=== PATIENT | female | born 1930 | race Caucasian/White ===

== ENCOUNTER 2017-02-13 13:48 | Inpatient (IN) | payer MEDICARE, BC ==
[~2017-02-13] VITALS: Ht 165.1 cm; Wt 78.6 kg
[2017-02-13] VITALS (7 sets, daily range): BP systolic 151–166; BP diastolic 52–73
[~2017-02-13 13:48] MED LIST: ACHD5005 PO; ALIS1TAB3; ALPR.5T PO; ALPR0.5T3; ALPR0.5T72; AMIO200T10; AMIO200T10 PO; ASPI-587 PO; CEFD300C3 PO; CHOL10003; CHOL10003 PO; CITA-105 PO; CLIN300C3 PO; CYCL10TA9 PO; DCS100C PO; DILT360C30 PO; DXZS4T PO; EZET1TAB43; FLAX OIL; FLAX100011 PO; FURO40TA4; FURO40TA4 PO; HYDR-3720 PO; LACT1CAP62 PO; LISI20TA; LISI40TA PO; LVT.025T PO; MULT-608; NEBI20TA2 PO; NEPA1.7D OD; NF-ALI300T PO; NFNEB10T; OFLO5DRO2 OD; OLME40TA14; OXYC10TA63 PO; PITA4TAB2 PO; PRED5DRO2I OD; STRESS TABS; VITAMIN B; VITAMIN B PO; WRF1T; WRF1T PO; WRF3T
[2017-02-13] MEDS ORDERED: NS IV 1000 ML 2,000 ML IV PRN (14:15)
[2017-02-13 14:17] LABS: BASOPHILS % (AUTO) 0 % (0-10); EOSINOPHILS # (AUTO) 0.1 10^3/uL (0.0-0.3); EOSINOPHILS % (AUTO) 1 % (0-10); LYMPHOCYTES # (AUTO) 1.1 X 10^3 (1.0-4.0); LYMPHOCYTES % (AUTO) 21 % (12-44); MEAN CORPUSCULAR HEMOGLOBIN 29 PG (25-34); MEAN CORPUSCULAR HGB CONC 33 G/DL (32-36); MEAN CORPUSCULAR VOLUME 88 FL (80-99); MEAN PLATELET VOLUME 10.4 FL (7.4-10.4); MONOCYTES # (AUTO) 0.1 X 10^3 (0.0-1.0); MONOCYTES % (AUTO) 2 % (0-12); NEUTROPHILS # (AUTO) 3.8 X 10^3 (1.8-7.8); NEUTROPHILS % (AUTO) 75 % (42-75); PLATELET COUNT 258 10^3/uL (130-400); RED BLOOD COUNT 4.86 10^6/uL (4.35-5.85); RED CELL DISTRIBUTION WIDTH 14.1 % (10.0-14.5)
[2017-02-13 14:32] LABS: PROTHROMBIN TIME PATIENT 13.6 SEC (12.2-14.7)
[2017-02-13] MEDS ORDERED: fentaNYL INJECTION 100 MCG/2 ML AMP IVP STA ×2 (14:36→16:40)
--- NOTE | 2017-02-13 14:36 | ED Abdominal Pain ---
General Stated Complaint: ABD PAIN,DIZZINESS Source of Information: Patient Exam Limitations: No Limitations History of Present Illness Time Seen By Provider: 14:00 Initial Comments Here by EMS with abdominal pain and dizziness. States that she got up this morning and ate and then had severe abdominal pain. States she felt like she had to go to the bathroom but couldn't. Ultimately the pain became severe and EMS was called. On arrival here patient had diarrhea with severe pain and was hypotensive. Initially was more normotensive for EMS per report but then became hypotensive and certainly hypotensive on arrival. Denies fever but does have chills. Denies nausea or vomiting. Timing/Duration: 4-6 Hours Severity/Quality: Moderate, Severe Location: Generalized Abdomen Activities at Onset: None Modifying Factors: Improves With Defecating Associated Symptoms: No Back Pain, No Chest Pain, No Fever/Chills, No Nausea/ Vomiting Allergies and Home Medications Allergies Coded Allergies: Penicillins (Verified Allergy, Unknown, 06/19/08) Sulfa (Sulfonamide Antibiotics) (Verified Allergy, Unknown, 06/19/08) Home Medications Aliskiren Hemifumarate 300 Mg Tab, 300 MG PO DAILY, (Reported) Alprazolam 0.5 Mg Tablet, 0.5-1 TAB PO TID PRN, (Reported) TAKES 1/2 TO 1 (0.5MG) TABLET NEEDED FOR ANXIETY Amiodarone Hcl 200 Mg Tablet, 200 MG PO THU,THU,THU,THU,THU, (Reported) TAKES 1 TABLET THURSDAY THROUGH THURSDAY, DOES NOT TAKE ANY ON THURSDAY OR THURSDAY Aspirin 81 Mg Tablet.dr, 81 MG PO DAILY, (Reported) Cholecalciferol 1,000 Unit Tablet, 1,000 UNIT PO DAILY, (Reported) Citalopram Hydrobromide 40 Mg Tablet, 40 MG PO DAILY, (Reported) Diltiazem Hcl 360 Mg Capsule.sa, 360 MG PO DAILY, (Reported) Flaxseed 1,000 Mg Capsule, 1,000 MG PO DAILY, (Reported) Furosemide 40 Mg Tablet, 40 MG PO DAILY PRN, (Reported) NEEDED FOR SWELLING Hydrocodone Bit/Acetaminophen 1 Each Tablet, 10-325 MG PO Q6H PRN, (Reported) NEEDED FOR PAIN Levothyroxine Sodium 25 Mcg Tablet, 25 MCG PO DAILY, (Reported) Lisinopril 40 Mg Tablet, 40 MG PO DAILY, (Reported) Nebivolol Hcl 20 Mg Tablet, 20 MG PO DAILY, (Reported) Pitavastatin Calcium 4 Mg Tablet, 4 MG PO HS, (Reported) Review of Systems Constitutional: see HPI, No chills, No fever Respiratory: No Symptoms Reported Cardiovascular: Denies Chest Pain, Lightheadedness Gastrointestinal: Abdominal Pain, Diarrhea, Nausea, Denies Vomiting Genitourinary: Other (decreased output with last UA this morning and none since. Previous was yesterday) Musculoskeletal: no symptoms reported Skin: no symptoms reported Psychiatric/Neurological: See HPI, Weakness Endocrine: No Symptoms Reported All Other Systems Reviewed Negative Unless Noted: Yes Past Kkqbjgn-Gjxwui-Oplxju Hx Patient Social History Alcohol Use: Denies Use Recreational Drug Use: No Smoking Status: Never a Smoker 2nd Hand Smoke Exposure: No Recent Foreign Travel: No Contact w/Someone Who Travel: No Immunizations Up To Date Tetanus Booster (TDap): Unknown Date of Pneumonia Vaccine: May 15, 2013 Date of Influenza Vaccine: Feb 02, 2013 Seasonal Allergies Seasonal Allergies: No Surgeries History of Surgeries: Yes Respiratory History of Respiratory Disorde: No Cardiovascular History of Cardiac Disorders: Yes Cardiac Disorders: Hypertension, Irregular Heartbeat Neurological History of Neurological Disord: No Reproductive System Hx Reproductive Disorders: Yes (BARTHOLIN CYSTS X 2 WITH SURGERY FOR BOTH) Genitourinary History of Genitourinary Disor: Yes Genitourinary Disorders: Bladder Infection, Renal Failure Gastrointestinal History of Gastrointestinal Di: No Musculoskeletal History of Musculoskeletal Dis: No Endocrine History of Endocrine Disorders: Yes Endocrine Disorders: Hypothyroidsim HEENT History of HEENT Disorders: Yes HEENT Disorders: Cataract Hearing Impairment: Denies Psychosocial History of Psychiatric Problem: Yes Behavioral Health Disorders: Sleep Difficulties, Anxiety Blood Transfusions Adverse Reaction to a Blood Tr: No Reviewed Nursing Assessment Reviewed/Agree w Nursing PMH: Yes Family Medical History Significant Family History: Heart Disease, Hypertension Physical Exam Vital Signs VS - Last 72 Hours, by Label 02/13/17 02/13/17 13:50 13:50 Temp 97.8 Pulse 93 Resp 18 B/P (MAP) Pulse Ox 97 O2 Delivery Nasal Cannula O2 Flow Rate 2.00 Capillary Refill : General Appearance: WD/WN, moderate distress HEENT: TMs normal, pharynx normal Neck: full range of motion, supple Respiratory: lungs clear, normal breath sounds Cardiovascular: regular rate, rhythm, no murmur Gastrointestinal: soft, abnormal bowel sounds (hyperactive), tenderness ( diffuse) Extremities: non-tender, normal inspection Back: normal inspection, no CVA tenderness, no vertebral tenderness Neurologic/Psychiatric: alert, oriented x 3 Skin: normal color, warm/dry Focused Exam Evaluation Lactate Level Laboratory Tests 02/13/17 13:55: Lactic Acid Level 3.25*H 02/13/17 16:55: Lactic Acid Level Laboratory Tests Test 02/13/17 13:55 02/13/17 16:55 Lactic Acid Level 3.25 MMOL/L (0.50-2.00) *H Progress/Results/Core Measures Results/Orders Lab Results Laboratory Tests Test 02/13/17 13:55 02/13/17 16:20 02/13/17 16:55 Range/Units White Blood Count 5.0 4.3-11.0 10^3/uL Red Blood Count 4.86 4.35-5.85 10^6/uL Hemoglobin 14.0 11.5-16.0 G/DL Hematocrit 43 35-52 % Mean Corpuscular Volume 88 80-99 FL Mean Corpuscular Hemoglobin 29 25-34 PG Mean Corpuscular Hemoglobin Concent 33 32-36 G/DL Red Cell Distribution Width 14.1 10.0-14.5 % Platelet Count 258 130-400 10^3/uL Mean Platelet Volume 10.4 7.4-10.4 FL Neutrophils (%) (Auto) 75 42-75 % Lymphocytes (%) (Auto) 21 12-44 % Monocytes (%) (Auto) 2 0-12 % Eosinophils (%) (Auto) 1 0-10 % Basophils (%) (Auto) 0 0-10 % Neutrophils # (Auto) 3.8 1.8-7.8 X 10^3 Lymphocytes # (Auto) 1.1 1.0-4.0 X 10^3 Monocytes # (Auto) 0.1 0.0-1.0 X 10^3 Eosinophils # (Auto) 0.1 0.0-0.3 10^3/uL Basophils # (Auto) 0.0 0.0-0.1 10^3/uL Prothrombin Time 13.6 12.2-14.7 SEC INR Comment 1.0 0.8-1.4 Activated Partial Thromboplast Time 23 L 24-35 SEC Sodium Level 138 135-145 MMOL/L Potassium Level 5.0 3.6-5.0 MMOL/L Chloride Level 106 98-107 MMOL/L Carbon Dioxide Level 18 L 21-32 MMOL/L Anion Gap 14 5-14 MMOL/L Blood Urea Nitrogen 41 H 7-18 MG/DL Creatinine 2.14 H 0.60-1.30 MG/DL Estimat Glomerular Filtration Rate 22 BUN/Creatinine Ratio 19 Glucose Level 204 H 70-105 MG/DL Lactic Acid Level 3.25 *H 0.50-2.00 MMOL/L Calcium Level 9.7 8.5-10.1 MG/DL Total Bilirubin 0.9 0.1-1.0 MG/DL Aspartate Amino Transf (AST/SGOT) 26 5-34 U/L Alanine Aminotransferase (ALT/SGPT) 16 0-55 U/L Alkaline Phosphatase 59 40-136 U/L Total Protein 6.8 6.4-8.2 GM/DL Albumin 3.9 3.2-4.5 GM/DL Urine Color JOSE ARMANDO H Urine Clarity VERY CLOUDY H Urine pH 5 5-9 Urine Specific [place] 1.015 L 1.016-1.022 Urine Protein 4+ NEGATIVE Urine Glucose (UA) NEGATIVE NEGATIVE Urine Ketones 1+ H NEGATIVE Urine Nitrite NEGATIVE NEGATIVE Urine Bilirubin 1+ H NEGATIVE Urine Urobilinogen 4 H NORMAL MG/DL Urine Leukocyte Esterase 1+ H NEGATIVE Urine RBC (Auto) 1+ H NEGATIVE Urine RBC NONE /HPF Urine WBC 5-10 H /HPF Urine Squamous Epithelial Cells 10-25 H /HPF Urine Crystals NONE /LPF Urine Amorphous Sediment MOD JASIEL URATES H /LPF Urine Bacteria FEW H /HPF Urine Casts NONE /LPF Urine Mucus NEGATIVE /LPF Urine Culture Indicated YES My Orders Orders - SARATH LOPEZ MD Cbc With Automated Diff (02/13/17 14:03) Comprehensive Metabolic Panel (02/13/17 14:03) Lactic Acid Analyzer (02/13/17 14:03) Blood Culture (02/13/17 14:03) Sputum Culture (02/13/17 14:03) Ua Culture If Indicated (02/13/17 14:03) Protime With Inr (02/13/17 14:03) Partial Thromboplastin Time (02/13/17 14:03) Chest 1 View, Ap/Pa Only (02/13/17 14:03) O2 (02/13/17 14:03) Saline Lock/Iv-Start (02/13/17 14:03) Saline Lock/Iv-Start (02/13/17 14:03) Ns Iv 1000 Ml (Sodium Chloride 0.9%) (02/13/17 14:15) Vital Signs Adult Sepsis Patie Q1HR (02/13/17 14:03) Remove Rings In Anticipation O (02/13/17 14:03) Catheter(Urinary) Insert & Ass 03,15 (02/13/17 14:36) Fentanyl Injection (Sublimaze Injection (02/13/17 14:36) Forearm, Right, 2 Views (02/13/17 14:36) Hand, Right, 3 Views (02/13/17 14:36) Ct Abdomen/Pelvis Wo (02/13/17 15:15) Ekg Tracing (02/13/17 15:54) Ns Iv 1000 Ml (Sodium Chloride 0.9%) (02/13/17 16:30) Urine Culture (02/13/17 16:20) Fentanyl Injection (Sublimaze Injection (02/13/17 16:40) Ceftriaxone Injection (Rocephin Injectio (02/13/17 17:00) Medications Given in ED Current Medications Medications Dose Ordered Sig/Dung Route Start Time Stop Time Status Last Admin Dose Admin Sodium Chloride 2,000 ml @ 1,000 mls/hr PRN PRN IV 02/13/17 14:15 02/13/17 13:55 1,000 MLS/HR Vital Signs/I&O Vital Sign - Last 12Hours 02/13/17 02/13/17 13:50 13:50 Temp 97.8 Pulse 93 Resp 18 B/P (MAP) Pulse Ox 97 O2 Delivery Nasal Cannula O2 Flow Rate 2.00 Intake and Output 02/14/17 00:00 Intake Total 2000 ml Balance 2000 ml Progress Note : Progress Note IV by EMS with 500 mL normal saline bolus initiated. Patient noted to be hypotensive. Second IV ordered. Normal saline 30 mL/kg IV bolus initiated totaling 2 L required at weight of 160 pounds. 2 L was ordered and she will have the in addition to the 500 mL normal saline bolus initiated by EMS. Blood cultures, lactic acid, labs, chest x-ray, x-ray of right forearm and hand ordered. Monitor patient. Patient's blood pressure did improve with fluids but patient had 0 urine output with initiation of Elizabeth catheter. She does have some persistent abdominal pain. Lactic acid noted to be greater than than 3. CT abdomen and pelvis without contrast due to elevated creatinine ordered and patient to CT at 1520. Still no urine output. Monitor patient. 1630: CT abdomen and pelvis complete. Patient is improved with blood pressures in the 150s systolic. Still having pain. Fentanyl 50 g IV. I did discuss the case with Dr. Kay and she accepts patient for admission. UA pending. 1644, did discuss the case with Dr. Olivera in consult per Dr. Romero's request. 1652: Discussed case with Dr. German, consult per Dr. Romero's request. Both physicians will see patient in the ICU. All findings and concerns were discussed with the patient and family including her son Dr. Jaron Canada ([phone]). We will treat for UTI. Overall doing better. She has had several diarrhea stools. Patient does have urine output now. Admit to ICU. Inpatient status. 1715: Patient doing much better. I attest a focused exam at this time. Right ulnar fracture was splinted earlier with Velcro splint immobilizing the distal ulna. Placed in sling. Will need further orthopedic referral. ECG Initial ECG Impression Date: Feb 13, 2017 Initial ECG Impression Time: 16:40 Initial ECG Rate: 60 Comment Junctional rhythm with normal axis. No evidence of ST elevation SC. Artifact noted throughout baseline. No previous available for comparison. Interpreted by me. Diagnostic Imaging Diagonstic Imaging: Xray Plain Films/CT/US/NM/MRI: chest Comments NAME: [facility] REC#: [id number] PT STATUS: REG ER : 1930 PHYSICIAN: SARATH LOPEZ MD ADMIT DATE: 02/13/17/ER Signed Date of Exam: 02/13/17 CHEST 1 VIEW, AP/PA ONLY INDICATION: Fall with elevated lactic acid level. COMPARISON: 05/16/13. FINDINGS: Visible lungs are clear. Please note, the posterior lower lobes are poorly evaluated by portable radiography. Stable cardiomegaly with left pectoral transvenous dual-chamber pacemaker. No pleural effusion or pneumothorax. No displaced fracture of the visible ribs. IMPRESSION: 1. No acute cardiopulmonary process by portable radiography. Dictated by: Dictated on workstation # [id number] Dict: 02/13/17 1519 Trans: 02/13/171619 Interpreted by: OPAL MORGAN MD Electronically signed by: OPAL MORGAN MD 02/13/171619 Diagonstic Imaging: Xray Plain Films/CT/US/NM/MRI: forearm Comments NAME: [facility] REC#: [id number] PT STATUS: REG ER : 1930 PHYSICIAN: SARATH LOPEZ MD ADMIT DATE: 02/13/17/ER Signed Date of Exam: 02/13/17 FOREARM, RIGHT, 2 VIEWS INDICATION: Wrist pain after a fall. TECHNIQUE: 2 views of the right forearm. COMPARISON: Right hand radiographs performed concurrently. FINDINGS: There is an acute oblique fracture of the distal ulnar metadiaphysis. The distal fracture fragment is displaced medially by approximately 4 mm resulting in 4 mm of fracture gap diastases. No abnormal angulation of the distal fracture fragment. No definitive acute fracture of the distal radius. Proximal radius and ulna, normal alignment. IMPRESSION: 1. Acute mildly displaced fracture of the distal ulnar metadiaphysis. No involvement of the distal radial ulnar joint. Dictated by: Dictated on workstation # [id number] Dict: 02/13/17 1514 Trans: 02/13/171621 Interpreted by: OPAL MORGAN MD Electronically signed by: OPAL MORGAN MD 02/13/171621 Diagonstic Imaging: Xray Plain Films/CT/US/NM/MRI: hand Comments NAME: [facility] REC#: [id number] PT STATUS: REG ER : 1930 PHYSICIAN: SARATH LOPEZ MD ADMIT DATE: 02/13/17/ER Signed Date of Exam: 02/13/17 HAND, RIGHT, 3 VIEWS INDICATION: Fall with right hand pain. EXAMINATION: AP, oblique and lateral views of the right hand were obtained. FINDINGS: There is osteopenia. There is diffuse degenerative change throughout the interphalangeal joints. There is advanced degenerative change of first carpal metacarpal joint and radiocarpal joint. There is an acute oblique fracture of the distal ulnar shaft just proximal to the wrist joint. IMPRESSION: Acute oblique fracture of the distal ulnar shaft just proximal to the wrist joint. Underlying diffuse chronic changes, as above. Dictated by: Dictated on workstation # [id number] Dict: 02/13/17 1522 Trans: 02/13/171615 Interpreted by: EMBER STAFFORD MD Electronically signed by: EMBER STAFFORD MD 02/13/17 161 Diagonstic Imaging: CT Plain Films/CT/US/NM/MRI: abdomen, pelvis Comments NAME: [facility] REC#: [id number] PT STATUS: REG ER : 1930 PHYSICIAN: SARATH LOPEZ MD ADMIT DATE: 02/13/17/ER Signed Date of Exam: 02/13/17 CT ABDOMEN/PELVIS WO INDICATION: Fall with abdominal pain. EXAM: CT of the abdomen and pelvis obtained without IV contrast. COMPARISON: 01/16/2016. FINDINGS: The visualized portions of the lung bases are clear. There were no pleural fluid collections. There is no free intraperitoneal air. The liver shows no focal lesion without contrast. Gallbladder is surgically absent. The spleen, pancreas, and adrenals appear unremarkable. There is cortical scarring in the right kidney superiorly as well as in the left kidney inferiorly, without hydronephrosis or overt mass lesion. There is no retroperitoneal mass or adenopathy. There is no ascites or abnormal fluid collection. There is a large amount of stool throughout the colon, especially in the rectum. Elizabeth catheter is seen in the bladder. Bladder is decompressed IMPRESSION: No evidence of solid organ injury or overt mass lesion without contrast. Moderate-sized hiatal hernia is present. Parenchymal scarring in both kidneys is seen. There is a large amount stool throughout the colon, especially in the rectum. There is no overt acute bony abnormality. Dictated by: Dictated on workstation # [id number] Dict: 02/13/17 1543 Trans: 02/13/17 1616 Interpreted by: EMBER STAFFORD MD Electronically signed by: EMBER STAFFORD MD 02/13/176 Departure Communication (Admissions) Time/Spoke to Admitting Phy: 16:30 Time/Spoke to Consulting Phy: 16:44 Impression Impression: Primary Impression: Diffuse abdominal pain Additional Impressions: Diarrhea Qualified Codes: R19.7 - Diarrhea, unspecified UTI (urinary tract infection) Qualified Codes: N30.00 - Acute cystitis without hematuria Acute on chronic renal failure Qualified Codes: N17.9 - Acute kidney failure, unspecified; N18.9 - Chronic kidney disease, unspecified Dehydration Right distal ulnar fracture Qualified Codes: S52.601A - Unspecified fracture of lower end of right ulna, initial encounter for closed fracture Disposition: ADMITTED INPATIENT Condition: Stable Admissions Decision to Admit Reason: Admit from ER (General) Decision to Admit/Date: Feb 13, 2017 Time/Decision to Admit Time: 16:30 Departure-Patient Inst. Referrals: RAH ANGELES MD (PCP/Family) Primary Care Physician SARATH LOPEZ MD Feb 13, 2017 14:36
[2017-02-13 14:43] LABS: ALBUMIN 3.9 GM/DL (3.2-4.5); BILIRUBIN,TOTAL 0.9 MG/DL (0.1-1.0); CALCIUM 9.7 MG/DL (8.5-10.1); CREATININE SERUM 2.14 MG/DL (0.60-1.30); TOTAL PROTEIN 6.8 GM/DL (6.4-8.2)
--- NOTE | 2017-02-13 15:22 | Diagnostic Imaging Report ---
INDICATION: Fall with elevated lactic acid level. COMPARISON: 05/16/13. FINDINGS: Visible lungs are clear. Please note, the posterior lower lobes are poorly evaluated by portable radiography. Stable cardiomegaly with left pectoral transvenous dual-chamber pacemaker. No pleural effusion or pneumothorax. No displaced fracture of the visible ribs. IMPRESSION: 1. No acute cardiopulmonary process by portable radiography. Dictated by: Dictated on workstation # [id number]
--- NOTE | 2017-02-13 15:38 | Diagnostic Imaging Report ---
INDICATION: Wrist pain after a fall. TECHNIQUE: 2 views of the right forearm. COMPARISON: Right hand radiographs performed concurrently. FINDINGS: There is an acute oblique fracture of the distal ulnar metadiaphysis. The distal fracture fragment is displaced medially by approximately 4 mm resulting in 4 mm of fracture gap diastases. No abnormal angulation of the distal fracture fragment. No definitive acute fracture of the distal radius. Proximal radius and ulna, normal alignment. IMPRESSION: 1. Acute mildly displaced fracture of the distal ulnar metadiaphysis. No involvement of the distal radial ulnar joint. Dictated by: Dictated on workstation # [id number]
--- NOTE | 2017-02-13 15:42 | Diagnostic Imaging Report ---
INDICATION: Fall with right hand pain. EXAMINATION: AP, oblique and lateral views of the right hand were obtained. FINDINGS: There is osteopenia. There is diffuse degenerative change throughout the interphalangeal joints. There is advanced degenerative change of first carpal metacarpal joint and radiocarpal joint. There is an acute oblique fracture of the distal ulnar shaft just proximal to the wrist joint. IMPRESSION: Acute oblique fracture of the distal ulnar shaft just proximal to the wrist joint. Underlying diffuse chronic changes, as above. Dictated by: Dictated on workstation # [id number]
--- NOTE | 2017-02-13 15:54 | Diagnostic Imaging Report ---
INDICATION: Fall with abdominal pain. EXAM: CT of the abdomen and pelvis obtained without IV contrast. COMPARISON: 01/16/2016. FINDINGS: The visualized portions of the lung bases are clear. There were no pleural fluid collections. There is no free intraperitoneal air. The liver shows no focal lesion without contrast. Gallbladder is surgically absent. The spleen, pancreas, and adrenals appear unremarkable. There is cortical scarring in the right kidney superiorly as well as in the left kidney inferiorly, without hydronephrosis or overt mass lesion. There is no retroperitoneal mass or adenopathy. There is no ascites or abnormal fluid collection. There is a large amount of stool throughout the colon, especially in the rectum. Elizabeth catheter is seen in the bladder. Bladder is decompressed IMPRESSION: No evidence of solid organ injury or overt mass lesion without contrast. Moderate-sized hiatal hernia is present. Parenchymal scarring in both kidneys is seen. There is a large amount stool throughout the colon, especially in the rectum. There is no overt acute bony abnormality. Dictated by: Dictated on workstation # [id number]
[2017-02-13 16:28] LABS: KETONES,URINE 1+ (NEGATIVE); LEUKOCYTE ESTERASE ,URINE 1+ (NEGATIVE); NITRITE,URINE NEGATIVE (NEGATIVE); PH,URINE 5 (5-9); PROTEIN,URINE 4+ (NEGATIVE); UROBILINOGEN,URINE 4 MG/DL (NORMAL)
[2017-02-13] MEDS ORDERED: NS IV 1000 ML 1,000 ML IV SCH (16:30)
[2017-02-13 16:39] LABS: BILIRUBIN,URINE 1+ (NEGATIVE)
[2017-02-13] MEDS ORDERED: cefTRIAXone INJECTION 1,000 MG in NS (IVPB) 50 ML IV ONE (17:00)
[2017-02-13] MEDS ORDERED: cefTRIAXone 1 GM/NS 50 ML IVPB IV SCH ×2 (18:00)
[2017-02-13] MEDS ORDERED: ONDANSETRON 4 MG/2 ML (SDV) Z0FRAN IV PRN (18:15)
[2017-02-13] MEDS ORDERED: CATHETER FLUSH 10 ML SYR IV PRN (18:15)
[2017-02-13] MEDS ORDERED: fentaNYL INJECTION 100 MCG/2 ML AMP IV PRN (18:15)
[2017-02-13] MEDS: NS IV 1000 ML 1,000 ML IV SCH (18:56)
[2017-02-13] MEDS ORDERED: INFLUENZA TRIvalent 2017-2018 0.5 ML/45 MCG SYR IM ONE (19:45)
[2017-02-13] MEDS ORDERED: PANTOPRAZOLE 40 MG/10 ML (PROTONIX) VIAL IV ONE (21:15)
--- OUTSIDE RECORDS SUMMARY | 2017-02-13 21:17 | XMS REPORT | Continuity of Care Document ---
Author Author [facility] Organization [facility] Address Unknown Phone Unavailable Allergies Active Description Code Type Severity Reaction Onset Reported/Identified Relationship to Patient Clinical Status Yes Penicillins [id number] Drug Allergy Unknown N/A 06/19/2008 Yes Sulfa (Sulfonamide Antibiotics) [id number] Drug Allergy Unknown N/A 06/19/2008 Medications Problems Date Dx Coded Attending Type Code Diagnosis Diagnosed By 06/10/2011 Ot 847.0 SPRAIN OF NECK 06/10/2011 Ot 910.0 ABRASION HEAD 06/10/2011 Ot 916.0 ABRASION HIP LEG 06/10/2011 Ot 959.09 INJURY OF FACE AND NECK 06/10/2011 Ot E000.8 OTHER EXTERNAL CAUSE STATUS 06/10/[address]/HIGHWAY 06/10/2011 Ot E885.9 FALL FROM SLIPPING, TRIPPING, OR STUMBLI 06/10/2011 Ot V06.1 [id number], COMBINED [ 06/10/2011 Ot V58.61 ANTICOAGULANTS,LT,CURRENT USE 06/14/2011 Ot 724.2 LUMBAGO 06/14/2011 Ot 959.19 OTH INJURY OF OTHER SITES OF TRUNK 06/14/2011 Ot E000.8 OTHER EXTERNAL CAUSE STATUS 06/14/2011 Ot E849.6 ACCIDENT IN PUBLIC BLDG 06/14/2011 Ot E888.9 FALL NOS 07/17/2011 Ot 920 CONTUSION FACE/SCALP/NCK 07/17/2011 Ot 923.20 CONTUSION OF HAND(S) 07/17/2011 Ot 959.01 HEAD INJURY, NOS 07/17/2011 Ot E000.8 OTHER EXTERNAL CAUSE STATUS 07/17/2011 Ot E029.9 OTHER ACTIVITY 07/17/2011 Ot E849.0 ACCIDENT IN HOME 07/17/2011 Ot E888.1 FALL STRIKING OBJECT NEC 02/21/2013 RAH ANGELES MD Ot 244.9 HYPOTHYROIDISM NOS 02/21/2013 RAH ANGELES MD Ot 272.4 HYPERLIPIDEMIA NEC/NOS 02/21/2013 RHA ANGELES MD Ot 285.9 ANEMIA NOS 02/21/2013 RAH ANGELES MD Ot 403.90 HYPTNSV CHR KID DIS, UNSPEC, W CHR KD ST 02/21/2013 RAH ANGELES MD Ot 427.31 ATRIAL FIBRILLATION 02/21/2013 RAH ANGELES MD Ot 428.0 CONGESTIVE HEART FAILURE NOS 02/21/2013 RAH ANGELES MD Ot 428.33 ACUTE CHRONIC DIASTOLIC HRT FAILURE 02/21/2013 RAH ANGELES MD Ot 433.10 CAROTID ARTERY OCCLUSION W O CEREBRAL IN 02/21/2013 RAH ANGELES MD Ot 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 02/21/2013 RAH ANGELES MD Ot 585.3 CHRONIC KIDNEY DISEASE, STAGE III (MODER 02/21/2013 RAH ANGELES MD Ot 682.0 CELLULITIS OF FACE 02/21/2013 RAH ANGELES MD Ot 715.90 OSTEOARTHROS NOS-UNSPEC 02/21/2013 RAH ANGELES MD Ot 780.2 SYNCOPE AND COLLAPSE 02/21/2013 RAH ANGELES MD Ot 790.92 COAGULATION PROFILE, ABNORMAL 02/21/2013 RAH ANGELES MD Ot 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 PACEMAKER IN SITU 02/21/2013 RAH ANGELES MD Ot V58.61 ANTICOAGULANTS,LT,CURRENT USE 03/05/2013 SHAZIA BECKER [employer] SE[employer] PLANT OPERATOR Ot 599.0 URIN TRACT INFECTION NOS 03/05/2013 SHAZIA BECKER [employer] OPERATOR Ot 789.09 ABDOMINAL PAIN, OTHER SPECIFIED SITE 05/17/2013 RAH ANGELES MD Ot 244.9 HYPOTHYROIDISM NOS 05/17/2013 RAH ANGELES MD Ot 272.4 HYPERLIPIDEMIA NEC/NOS 05/17/2013 RAH ANGELES MD Ot 300.00 ANXIETY STATE NOS 05/17/2013 RAH ANGELES MD Ot 403.90 HYPTNSV CHR KID DIS, UNSPEC, W CHR KD ST 05/17/2013 RAH ANGELES MD Ot 414.01 CORONARY ATHEROSCLEROSIS OF [place] CORON 05/17/2013 RAH ANGELES MD Ot 427.31 ATRIAL FIBRILLATION 05/17/2013 RAH ANGELES MD Ot 428.0 CONGESTIVE HEART FAILURE NOS 05/17/2013 RAH ANGELES MD Ot 428.30 UNSPEC DIASTOLIC HRT FAILURE 05/17/2013 RAH ANGELES MD Ot 486 PNEUMONIA, ORGANISM NOS 05/17/2013 RAH ANGELES MD Ot 496 CHR AIRWAY OBSTRUCT NEC 05/17/2013 RAH ANGELES MD Ot 584.9 ACUTE RENAL FAILURE, UNSPECIFIED 05/17/2013 RAH ANGELES MD Ot 585.9 CHRONIC KIDNEY DISEASE, UNSPECIFIED 05/17/2013 RAH ANGELES MD Ot 780.79 OTH MALAISE FATIGUE 05/17/2013 RAH ANGELES MD Ot V03.82 PROPHYLACTIC VACC AGAINST STREPTOCOCCUS 05/17/2013 RAH ANGELES MD Ot 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 PACEMAKER IN SITU 11/30/2013 MARCE ALBARRAN DO Ot 300.00 ANXIETY STATE NOS 11/30/2013 MARCE ALBARRAN DO Ot 338.29 OTHER CHRONIC PAIN 11/30/2013 MARCE ALBARRAN DO Ot 724.5 BACKACHE NOS 11/30/2013 MARCE ALBARRAN DO Ot 733.00 OSTEOPOROSIS NOS 11/30/2013 MARCE ALBARRAN DO Ot 813.44 FX LOW RADIUS W ULNA-CL 11/30/2013 MARCE ALBARRAN DO Ot 920 CONTUSION FACE/SCALP/NCK 11/30/2013 MARCE ALBARRAN DO Ot E888.1 FALL STRIKING OBJECT NEC 03/21/2014 JESIKA HIGGINS MD Ot V54.12 AFTERCARE HEALING TRAUMATIC FX LOWER ARM 03/21/2014 JESIKA HIGGINS MD Ot V57.21 ENCOUNTER FOR OCCUPATIONAL THERAPY 04/26/2015 J LUIS ANAYA [employer] OPERATOR Ot M79.605 04/26/2015 J LUIS ANAYA [employer] OPERATOR Ot R22.42 05/03/2015 J LUIS ANAYA [employer] OPERATOR Ot M79.605 05/03/2015 J LUIS ANAYA [employer] OPERATOR Ot R22.42 01/16/2016 Ot 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 01/16/2016 Ot 733.90 BONE CARTILAGE DIS NOS 01/16/2016 Ot V76.12 OTH SCREEN MAMMO-MALIGN NEOPLASM OF [place] 01/16/2016 Ot V82.81 SCREENING FOR OSTEOPOROSIS 01/16/2016 Ot 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 01/16/2016 Ot 275.49 OTH DISORD/CALCIUM METABOLISM 01/16/2016 Ot 511.9 PLEURAL EFFUSION NOS 01/16/2016 Ot 733.90 BONE CARTILAGE DIS NOS 01/16/2016 Ot 805.2 FX DORSAL VERTEBRA-CLOSE 01/16/2016 Ot E000.8 OTHER EXTERNAL CAUSE STATUS 01/16/2016 Ot E849.6 ACCIDENT IN PUBLIC BLDG 01/16/2016 Ot E888.9 FALL NOS 01/16/2016 Ot 511.9 PLEURAL EFFUSION NOS 01/16/2016 Ot 805.2 FX DORSAL VERTEBRA-CLOSE 01/16/2016 Ot E000.8 OTHER EXTERNAL CAUSE STATUS 01/16/2016 Ot E849.6 ACCIDENT IN PUBLIC BLDG 01/16/2016 Ot E888.9 FALL NOS 01/16/2016 Ot 721.3 LUMBOSACRAL SPONDYLOSIS 01/16/2016 Ot 805.2 FX DORSAL VERTEBRA-CLOSE 01/16/2016 Ot E000.8 OTHER EXTERNAL CAUSE STATUS 01/16/2016 Ot E849.6 ACCIDENT IN PUBLIC BLDG 01/16/2016 Ot E888.9 FALL NOS 01/16/2016 Ot V76.12 OTH SCREEN MAMMO-MALIGN NEOPLASM OF [place] 01/16/2016 Ot 401.9 HYPERTENSION NOS 01/16/2016 KARTHIK ESPARZA, RAH A Ot 599.71 GROSS HEMATURIA 01/16/2016 MUNIRA HINOJOSA MD Ot 596.89 OTHER SPECIFIED DISORDERS OF BLADDER 01/16/2016 MUNIRA HINOJOSA MD Ot 599.71 GROSS HEMATURIA 01/16/2016 J LUIS ANAYA [employer] OPERATOR Ot M79.605 PAIN IN LEFT LEG 01/16/2016 J LUIS ANAYA [employer] OPERATOR Ot R22.42 LOCALIZED SWELLING, MASS AND LUMP, LEFT 01/18/2016 MUNIRA HINOJOSA MD Ot 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 Visit Date/Time Discharge Status Pt. Type Provider Facility Loc./Unit Complaint [id number] 01/16/2016 12:47:00 2015 23:59:59 CLS Outpatient MUNIRA HINOJOSA MD [facility] RAD BLAD CA-C67.9 [id number] 04/02/2015 16:35:00 2014 23:59:59 CLS Outpatient J LUIS ANAYA [employer] OPERATOR [facility] RAD LEFT LOWER EXTREMITY SWELLING, POPLITEAL PAIN [id number] 03/02/2014 12:50:00 2013 13:29:00 DIS Outpatient JESIKA HIGGINS MD [facility] REHAB S/P L DISTAL RADIUS FX [id number] 11/30/2013 07:32:00 2013 09:26:00 DIS Emergency MARCE ALBARRAN DO [facility] ER FALL/LEFT WRIST INJURY [id number] 09/16/2013 07:56:00 2013 23:59:59 CLS Outpatient MUNIRA HINOJOSA MD [facility] RAD GROSS HEMATURIA [id number] 08/31/2013 11:33:00 2013 23:59:59 CLS Outpatient RAH ANGELES MD [facility] LAB GROSS HEMATURIA [id number] 05/14/2013 11:30:00 2013 11:42:00 DIS Inpatient RAH ANGELES MD [facility] 4TH PNEUMONIA BILAT,ACUTE RENAL FAILURE, VOLUME OVERLOA [id number] 03/05/2013 13:46:00 2012 16:21:00 DIS Emergency SHAZIA BECKER [employer] OPERATOR [facility] ER POSS KIDNEY INFECTION [id number] 02/16/2013 10:45:00 2012 16:00:00 DIS Inpatient RAH ANGELES MD [facility] 4TH SYNCOPE,NECK SWELLING [id number] 01/16/2016 12:46:00 Document Registration [id number] 01/16/2016 12:46:00 Document Registration [id number] 01/16/2016 12:46:00 Document Registration [id number] 07/05/2012 10:05:00 Document Registration [id number] 03/03/2012 08:54:00 Document Registration [id number] 10/16/2011 09:55:00 Document Registration [id number] 08/08/2011 11:34:00 Document Registration [id number] 07/17/2011 12:43:00 Document Registration [id number] 06/17/2011 08:34:00 Document Registration [id number] 06/14/2011 09:01:00 Document Registration [id number] 06/10/2011 12:34:00 Document Registration [id number] 02/20/2011 08:16:00 Document Registration [id number] 08/15/2010 08:00:00 Document Registration
[2017-02-13] MEDS: ONDANSETRON 4 MG/2 ML (SDV) Z0FRAN IVP PRN (21:24)
[2017-02-13] MEDS: fentaNYL INJECTION 100 MCG/2 ML AMP IVP PRN (21:25)
--- OUTSIDE RECORDS SUMMARY | 2017-02-13 21:30 | XMS REPORT | Continuity of Care Document ---
Author Author [facility] Organization [facility] Address Unknown Phone Unavailable Allergies Active Description Code Type Severity Reaction Onset Reported/Identified Relationship to Patient Clinical Status Yes Penicillins [id number] Drug Allergy Unknown N/A 06/19/2008 Yes Sulfa (Sulfonamide Antibiotics) [id number] Drug Allergy Unknown N/A 06/19/2008 Medications Problems [...] SLIPPING, TRIPPING, OR STUMBLI 06/10/2011 Ot V06.1 [id number], COMBINED [ 06/10/2011 Ot V58.61 ANTICOAGULANTS,LT,CURRENT USE [...] ANGELES MD Ot 272.4 HYPERLIPIDEMIA NEC/NOS 02/21/2013 RAH ANGELES MD Ot 285.9 ANEMIA NOS 02/21/2013 [...] Ot V58.61 ANTICOAGULANTS,LT,CURRENT USE 03/05/2013 SHAZIA 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 SALES ACCOUNT EXECUTIVE Ot 599.0 URIN TRACT INFECTION NOS 03/05/2013 SHAZIA BECKER SALES ACCOUNT EXECUTIVE Ot 789.09 ABDOMINAL PAIN, OTHER SPECIFIED SITE 05/17/2013 RAH ANGELES MD Ot 244.9 HYPOTHYROIDISM NOS 05/17/2013 RAH ANGELES MD Ot 272.4 HYPERLIPIDEMIA NEC/NOS 05/17/2013 RAH ANGELES MD Ot 300.00 ANXIETY STATE NOS 05/17/2013 RAH ANGELES MD Ot 403.90 HYPTNSV CHR KID DIS, UNSPEC, W CHR KD ST 05/17/2013 RAH ANGELES MD Ot 414.01 CORONARY ATHEROSCLEROSIS OF [place] CORON 05/17/2013 RAH ANGELES MD Ot 427.31 [...] FOR OCCUPATIONAL THERAPY 04/26/2015 J LUIS ANAYA SALES ACCOUNT EXECUTIVE Ot M79.605 04/26/2015 J LUIS ANAYA SALES ACCOUNT EXECUTIVE Ot R22.42 05/03/2015 J LUIS ANAYA SALES ACCOUNT EXECUTIVE Ot M79.605 05/03/2015 J LUIS ANAYA SALES ACCOUNT EXECUTIVE Ot R22.42 01/16/2016 Ot 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 01/16/2016 [...] 599.71 GROSS HEMATURIA 01/16/2016 J LUIS ANAYA SALES ACCOUNT EXECUTIVE Ot M79.605 PAIN IN LEFT LEG 01/16/2016 J LUIS ANAYA SALES ACCOUNT EXECUTIVE Ot R22.42 LOCALIZED SWELLING, MASS AND LUMP, LEFT 01/18/2016 MUNIRA HINOJOSA MD Ot 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 Visit Date/Time Discharge Status Pt. Type Provider Facility Loc./Unit Complaint [id number] 01/16/2016 12:47:00 2015 23:59:59 CLS Outpatient MUNIRA HINOJOSA MD [facility] RAD BLAD CA-C67.9 [id number] 04/02/2015 16:35:00 2014 23:59:59 CLS Outpatient J LUIS ANAYA SALES ACCOUNT EXECUTIVE [facility] RAD LEFT LOWER EXTREMITY SWELLING, POPLITEAL PAIN [id number] 03/02/2014 12:50:00 2013 13:29:00 DIS Outpatient JESIKA HIGGINS MD [facility] REHAB S/P L DISTAL RADIUS FX [id number] 11/30/2013 07:32:00 2013 09:26:00 DIS Emergency MARCE ALBARRAN DO [facility] ER FALL/LEFT WRIST INJURY [id number] 09/16/2013 07:56:00 2013 23:59:59 CLS Outpatient MUNIRA HINOJOSA MD [facility] RAD GROSS HEMATURIA [id number] 08/31/2013 11:33:00 2013 23:59:59 CLS Outpatient RAH ANGELES MD [facility] LAB GROSS HEMATURIA [id number] 05/14/2013 11:30:00 2013 11:42:00 DIS Inpatient RAH ANGELES MD [facility] 4TH PNEUMONIA BILAT,ACUTE RENAL FAILURE, VOLUME OVERLOA [id number] 03/05/2013 13:46:00 2012 16:21:00 DIS Emergency SHAZIA BECKER SALES ACCOUNT EXECUTIVE [facility] ER POSS KIDNEY INFECTION [id number] 02/16/2013 10:45:00 2012 16:00:00 DIS Inpatient RAH ANGELES MD [facility] 4TH SYNCOPE,NECK SWELLING [id number] 01/16/2016 12:46:00 Document Registration [id number] 01/16/2016 12:46:00 Document Registration [id number] 01/16/2016 12:46:00 Document Registration [id number] 07/05/2012 10:05:00 Document Registration [id number] 03/03/2012 08:54:00 Document Registration [id number] 10/16/2011 09:55:00 Document Registration [id number] 08/08/2011 11:34:00 Document Registration [id number] 07/17/2011 12:43:00 Document Registration [id number] 06/17/2011 08:34:00 Document Registration [id number] 06/14/2011 09:01:00 Document Registration [id number] 06/10/2011 12:34:00 Document Registration [id number] 02/20/2011 08:16:00 Document Registration [id number] 08/15/2010 08:00:00 Document Registration
[2017-02-14] VITALS (15 sets, daily range): BP systolic 144–215; BP diastolic 62–88
[2017-02-14] MEDS: fentaNYL INJECTION 100 MCG/2 ML AMP IVP PRN ×2 (01:03→05:34)
[2017-02-14] MEDS: ONDANSETRON 4 MG/2 ML (SDV) Z0FRAN IVP PRN (02:37)
[2017-02-14] MEDS: NS IV 1000 ML 1,000 ML IV SCH ×3 (02:39→23:52)
[2017-02-14 04:27] LABS: BASOPHILS % (AUTO) 0 % (0-10); EOSINOPHILS % (AUTO) 0 % (0-10); LYMPHOCYTES # (AUTO) 0.7 X 10^3 (1.0-4.0); LYMPHOCYTES % (AUTO) 3 % (12-44); MEAN CORPUSCULAR HEMOGLOBIN 29 PG (25-34); MEAN CORPUSCULAR HGB CONC 33 G/DL (32-36); MEAN CORPUSCULAR VOLUME 90 FL (80-99); MEAN PLATELET VOLUME 10.3 FL (7.4-10.4); MONOCYTES # (AUTO) 0.8 X 10^3 (0.0-1.0); MONOCYTES % (AUTO) 4 % (0-12); NEUTROPHILS # (AUTO) 21.4 X 10^3 (1.8-7.8); NEUTROPHILS % (AUTO) 93 % (42-75); PLATELET COUNT 209 10^3/uL (130-400); RED BLOOD COUNT 3.83 10^6/uL (4.35-5.85)
[2017-02-14 04:46] LABS: ALBUMIN 3.2 GM/DL (3.2-4.5); BILIRUBIN,TOTAL 0.6 MG/DL (0.1-1.0); CALCIUM 7.8 MG/DL (8.5-10.1); CREATININE SERUM 1.45 MG/DL (0.60-1.30); MAGNESIUM 1.6 MG/DL (1.8-2.4); PHOSPHORUS 3.7 MG/DL (2.3-4.7); POTASSIUM 4.5 MMOL/L (3.6-5.0); TOTAL PROTEIN 5.4 GM/DL (6.4-8.2)
[2017-02-14 05:01] LABS: BAND NEUTROPHILS 2 %; BASOPHILS % (MANUAL) 0 %; EOSINOPHILS % (MANUAL) 0 %; LYMPHOCYTES % (MANUAL) 1 %; NEUTROPHILS % (MANUAL) 96 %
[2017-02-14] MEDS ORDERED: POTASSIUM CL 10MEQ/50ML IVPB 50 ML IV SCH (06:00)
[2017-02-14] MEDS ORDERED: MAGNESIUM 1 GM/100 ML IVPB 100 ML IV SCH (06:00)
[2017-02-14] MEDS ORDERED: KCL 20 MEQ TAB (K-DUR) PO SCH (06:00)
--- NOTE | 2017-02-14 08:21 | History & Physical-Hospitalist ---
HPI History of Present Illness: HPI/Chief Complaint CC: Severe sepsis of unknown source except presumed viral gastroenteritis with severe volume depletion with acute renal failure HPI: This is an 86-year-old white female clinic patient of Dr. Blas and who presents to the emergency room after a fall at home sustaining a right ulnar distal fracture but reported near syncopal episode all day yesterday that resulted in the fall. She reports that she began having abdominal pain and cramping and severe diarrhea with blood-tinged bowel contents in the toilet and in the ER was found to have severe sepsis with systolic blood pressure of 70 requiring aggressive IV fluid resuscitation with good resolution of the hypotension but urine looked slightly abnormal so Rocephin was given empirically lactic acid of 3 was noted to likely be from hypovolemic lactic acidosis with hypotension and acute renal failure. At this current time she is feeling much better and I have consulted Dr. Olivera to assess for possible colitis and review of CT scan of the abdomen and pelvis. Source: patient, family, RN/MD Exam Limitations: no limitations Date Seen 02/14/17 Time Seen by Provider: 07:45 Attending Physician Jena Blas MD PCP Jena Blas MD Referring Physician Date of Admission Feb 13, 2017 at 17:00 Home Medications & Allergies Home Medications Reviewed patient Home Medication Reconciliation Form Allergies Allergies Coded Allergies Penicillins (Verified Allergy, Unknown, 06/19/08) Sulfa (Sulfonamide Antibiotics) (Verified Allergy, Unknown, 06/19/08) Past Zthmfon-Fggyfn-Ljsils Hx Patient Social History Marrital Status: Employed/Student: retired Alcohol Use: Denies Use Recreational Drug Use: No Smoking Status: Never a Smoker 2nd Hand Smoke Exposure: No Physical Abuse Screen: No Sexual Abuse: No Recent Foreign Travel: No Contact w/other who traveled: No Recent Hopitalizations: No Recent Infectious Disease Expo: No Immunizations Up To Date Tetanus Booster (TDap): Unknown Date of Pneumonia Vaccine: May 15, 2013 Date of Influenza Vaccine: Feb 02, 2013 Seasonal Allergies Seasonal Allergies: No Surgeries Yes Abdominal Respiratory No Cardiovascular Yes (pacemaker) Hypertension, Irregular Heartbeat Neurological No Reproductive System Hx Reproductive Disorders: Yes (BARTHOLIN CYSTS X 2 WITH SURGERY FOR BOTH) Genitourinary Yes Bladder Infection, Renal Failure Gastrointestinal No Musculoskeletal No Endocrine History of Endocrine Disorders: Yes Endocrine Disorders: Hypothyroidsim HEENT History of HEENT Disorders: Yes HEENT Disorders: Cataract Hearing Impairment: Denies Cancer Yes Bladder Did You Recieve Any Treatments: Yes Type of Treatment: Surgical Intervention Psychosocial History of Psychiatric Problem: Yes Behavioral Health Disorders: Sleep Difficulties, Anxiety Integumentary History of Skin or Integumenta: Yes (PEREZ FROM TAKING COUMADIN) Blood Transfusions History of Blood Disorders: No Adverse Reaction to a Blood Tr: No Reviewed Nursing Assessment Reviewed/Agree w Nursing PMH: Yes Family Medical History Significant Family History: Heart Disease, Hypertension Family Hx: Patient reports no known family medical history. Review of Systems Constitutional: see HPI, dizziness, malaise, weakness EENTM: no symptoms reported Respiratory: no symptoms reported Cardiovascular: no symptoms reported Gastrointestinal: abdominal pain (LLQ), diarrhea, loss of appetite, melena, nausea Genitourinary: decreased output Musculoskeletal: back pain Skin: no symptoms reported Psychiatric/Neurological: No Symptoms Reported All Other Systems Reviewed Negative Unless Noted: Yes Physical Exam Physical Exam Vital Signs Vital Sign - Last 12Hours 02/13/17 02/13/17 13:50 17:45 Temp 97.8 Pulse 93 Resp 18 B/P (MAP) 154/52 Pulse Ox 97 O2 Delivery Nasal Cannula O2 Flow Rate 2.00 Capillary Refill : Less Than 3 Seconds General Appearance: No Apparent Distress, WD/WN, Chronically ill, Obese Eyes: Bilateral Eye Normal Inspection, Bilateral Eye PERRL HEENT: PERRL/EOMI, Normal ENT Inspection, Pharynx Normal Neck: Full Range of Motion, Normal Inspection, Non Tender, Supple, Carotid Bruit Respiratory: Chest Non Tender, Lungs Clear, Normal Breath Sounds, No Accessory Muscle Use, No Respiratory Distress Cardiovascular: Regular Rate, Rhythm, No Edema, No Gallop, No JVD, No Murmur, Normal Peripheral Pulses Gastrointestinal: Normal Bowel Sounds, No Organomegaly, No Pulsatile Mass, Soft , Tenderness (generalized all quadrants) Back: Normal Inspection, No CVA Tenderness, No Vertebral Tenderness Extremity: Normal Capillary Refill, Normal Inspection, Normal Range of Motion, Non Tender, No Calf Tenderness, No Pedal Edema Neurologic/Psychiatric: Alert, Oriented x3, No Motor/Sensory Deficits, Normal Mood/Affect Skin: Normal Color, Warm/Dry Lymphatic: No Adenopathy Results Results/Procedures Lab Laboratory Tests 02/13/17 13:55 02/14/17 04:10 Assessment/Plan Admission Diagnosis Assessment: Severe sepsis likely due to hypovolemic hypotension with acute renal failure from acute and severe gastroenteritis Abnormal UA urine culture pending placed on Rocephin empirically Leukocytosis after normal white count and ER History of irregular heartbeat managed by cardiology Dr. German History of hypertension Assessment and Plan Plan: Maintain gentle IV fluids Consult cardiology Consultation Gen. surgery Maintain Rocephin empirically until urine culture returns Check labs in a.m. Monitor closely Reconcile home meds when confirmed SCD's Diagnosis/Problems Diagnosis/Problems (1) Severe sepsis with acute organ dysfunction Status: Acute Assessment & Plan: s/p aggressive IVF now lactic acidosis is resolved (2) Renal failure, acute Status: Acute Assessment & Plan: Maintain IVF, check in am Qualifiers: Qualified Codes: N17.9 - Acute kidney failure, unspecified (3) Leukocytosis, unspecified Status: Acute Assessment & Plan: Due to sepsis response (4) Abnormal urinalysis Status: Acute Assessment & Plan: Await UCx tomorrow and maintain abx coverage empirically until completed (5) Diarrhea of presumed infectious origin Status: Acute Assessment & Plan: Consult dr Olivera, CT scan to be reviewed (6) Irregular heart beat Status: Chronic Assessment & Plan: Consult Dr German her Table Tender (7) Right distal ulnar fracture Status: Chronic Assessment & Plan: Consult her Table Tender Dr German Qualifiers: Qualified Codes: S52.601A - Unspecified fracture of lower end of right ulna , initial encounter for closed fracture (8) Dehydration Status: Acute Assessment & Plan: Maintain IVF Clinical Quality Measures DVT/VTE Risk/Contraindication: Risk Factor Score Per Nursin RFS Level Per Nursing on Admit: 3=High JARON PATEL DO Feb 14, 2017 08:20
--- NOTE | 2017-02-14 08:31 | Diagnostic Imaging Report ---
Portable chest compared to prior study from February 13, 2017. INDICATION: Shortness of breath and hypotension. FINDINGS: Patient is status post previous placement of a pacemaker. Heart size appears stable. There is mild central pulmonary vascular congestion with a slight interval increase in prominence of the central pulmonary vascularity. There is new linear atelectasis at the right lung base. There are some developing regions of atelectasis or infiltrate medially within the right middle lobe. There is no large effusion. There is no pneumothorax. IMPRESSION: Slight interval increase in prominence of the pulmonary interstitial markings suggests some developing pulmonary vascular congestion. There also are developing regions of atelectasis or infiltrate demonstrated at the right base. Dictated by: Dictated on workstation # [id number]
[2017-02-14] MEDS: HYDROmorphone (DILAUDID) 2 MG/ML VIAL IVP PRN ×3 (08:39→20:42)
[2017-02-14 09:18] LABS: BILIRUBIN,URINE NEGATIVE (NEGATIVE); KETONES,URINE NEGATIVE (NEGATIVE); LEUKOCYTE ESTERASE ,URINE 1+ (NEGATIVE); NITRITE,URINE NEGATIVE (NEGATIVE); PH,URINE 5 (5-9); PROTEIN,URINE 3+ (NEGATIVE); UROBILINOGEN,URINE NORMAL (NORMAL)
--- NOTE | 2017-02-14 11:16 | Consultation ---
History of Present Illness History of Present Illness Patient Consulted On(fabiola/time) 02/14/17 11:06 Date Seen by Provider: Feb 14, 2017 Time Seen by Provider: 09:38 History of Present Illness Surgery asked to consult regarding abdominal pain. HPI per ED: Here by EMS with abdominal pain and dizziness. States that she got up this morning and ate and then had severe abdominal pain. States she felt like she had to go to the bathroom but couldn't. Ultimately the pain became severe and EMS was called. On arrival here patient had diarrhea with severe pain and was hypotensive. Initially was more normotensive for EMS per report but then became hypotensive and certainly hypotensive on arrival. Denies fever but does have chills. Denies nausea or vomiting. Timing/Duration: 4-6 Hours Severity/Quality: Moderate, Severe Location: Generalized Abdomen Activities at Onset: None Modifying Factors: Improves With Defecating Associated Symptoms: No Back Pain, No Chest Pain, No Fever/Chills, No Nausea/ Vomiting When seen today pt states she has minimal abdominal pain, her son thinks her abdomen is slightly distended. Denies nausea and vomiting. A&O x 3. Her BM today per nurse was grossly bloody; this has not happened to pt before. I asked the pt about major surgery and she states she does not think she wants any surgery. One of her son's is a vascular surgeon in [place]; and she would discuss with him before doing anything, but right now doesn't want any surgery. Pt's only other complaint today is right wrist pain; Xray showed ulnar fracture. Allergies and Home Medications Allergies Coded Allergies: Penicillins (Verified Allergy, Unknown, 06/19/08) Sulfa (Sulfonamide Antibiotics) (Verified Allergy, Unknown, 06/19/08) Home Medications Aliskiren Hemifumarate 300 Mg Tab, 300 MG PO DAILY, (Reported) Alprazolam 0.5 Mg Tablet, 0.5-1 TAB PO TID PRN, (Reported) TAKES 1/2 TO 1 (0.5MG) TABLET NEEDED FOR ANXIETY Amiodarone Hcl 200 Mg Tablet, 200 MG PO THU,THU,THU,THU,THU, (Reported) TAKES 1 TABLET THURSDAY THROUGH THURSDAY, DOES NOT TAKE ANY ON THURSDAY OR THURSDAY Aspirin 81 Mg Tablet.dr, 81 MG PO DAILY, (Reported) Cholecalciferol 1,000 Unit Tablet, 1,000 UNIT PO DAILY, (Reported) Citalopram Hydrobromide 40 Mg Tablet, 40 MG PO DAILY, (Reported) Diltiazem Hcl 360 Mg Capsule.sa, 360 MG PO DAILY, (Reported) Flaxseed 1,000 Mg Capsule, 1,000 MG PO DAILY, (Reported) Furosemide 40 Mg Tablet, 40 MG PO DAILY PRN, (Reported) NEEDED FOR SWELLING Hydrocodone Bit/Acetaminophen 1 Each Tablet, 10-325 MG PO Q6H PRN, (Reported) NEEDED FOR PAIN Levothyroxine Sodium 25 Mcg Tablet, 25 MCG PO DAILY, (Reported) Lisinopril 40 Mg Tablet, 40 MG PO DAILY, (Reported) Nebivolol Hcl 20 Mg Tablet, 20 MG PO DAILY, (Reported) Pitavastatin Calcium 4 Mg Tablet, 4 MG PO HS, (Reported) Past Szalmtu-Xkdebg-Vrudhy Hx Patient Social History Alcohol Use: Denies Use Recreational Drug Use: No Smoking Status: Never a Smoker 2nd Hand Smoke Exposure: No Recent Foreign Travel: No Contact w/Someone Who Travel: No Recent Infectious Disease Expo: No Recent Hopitalizations: No Physical Abuse Screen: No Sexual Abuse: No Immunizations Up To Date Tetanus Booster (TDap): Unknown Date of Pneumonia Vaccine: May 15, 2013 Date of Influenza Vaccine: Feb 02, 2013 Seasonal Allergies Seasonal Allergies: No Surgeries History of Surgeries: Yes Respiratory History of Respiratory Disorde: No Cardiovascular History of Cardiac Disorders: Yes Cardiac Disorders: Hypertension, Irregular Heartbeat Neurological History of Neurological Disord: No Reproductive System Hx Reproductive Disorders: Yes (BARTHOLIN CYSTS X 2 WITH SURGERY FOR BOTH) Genitourinary History of Genitourinary Disor: Yes Genitourinary Disorders: Bladder Infection, Renal Failure Gastrointestinal History of Gastrointestinal Di: No Musculoskeletal History of Musculoskeletal Dis: No Endocrine History of Endocrine Disorders: No Endocrine Disorders: Hypothyroidsim HEENT History of HEENT Disorders: Yes HEENT Disorders: Cataract Hearing Impairment: Denies Cancer History of Cancer: Yes Cancer: Bladder Psychosocial History of Psychiatric Problem: Yes Behavioral Health Disorders: Sleep Difficulties, Anxiety Integumentary History of Skin or Integumenta: Yes (PEREZ FROM TAKING COUMADIN) Blood Transfusions History of Blood Disorders: No Adverse Reaction to a Blood Tr: No Reviewed Nursing Assessment Reviewed/Agree w Nursing PMH: Yes Family Medical History Significant Family History: Heart Disease, Hypertension Family Medial History: Patient reports no known family medical history. Review of Systems-General Constitutional: No chills, No diaphoresis, malaise, weakness EENTM: hearing loss, No mouth pain, No epistaxis, No throat swelling Respiratory: No cough, No dyspnea on exertion, No hemoptysis Cardiovascular: No chest pain, No edema, No palpitations Gastrointestinal: abdominal pain, diarrhea, No nausea, No vomiting Genitourinary: dysuria, frequency, No hematuria : No Musculoskeletal: joint pain, joint swelling, muscle stiffness Skin: dryness, No pruritus, No rash Psychiatric/Neurological: Denies Anxiety, Denies Depressed, Denies Emotional Problems, Denies Headache, Denies Seizure Other pt denies abnormal bruising or bleeding, states she does have some bruising "because she is older" Physical Exam-General Problems Physical Exam Vital Signs Vital Sign - Last 12Hours 02/13/17 02/13/17 13:50 17:45 Temp 97.8 Pulse 93 Resp 18 B/P (MAP) 154/52 Pulse Ox 97 O2 Delivery Nasal Cannula O2 Flow Rate 2.00 Capillary Refill : Less Than 3 Seconds General Appearance: WD/WN, mild distress Eyes: Bilateral Eye PERRL, Bilateral Eye EOMI HEENT: pharynx normal, No scleral icterus (R), No scleral icterus (L), No pale conjunctivae (R), No pale conjunctivae (L) Neck: supple, normal inspection, No thyromegaly Respiratory: chest non-tender, lungs clear, normal breath sounds, no respiratory distress, no accessory muscle use Cardiovascular: regular rate, rhythm, no edema, no gallop, systolic murmur (I- II/ NEGIN) Gastrointestinal: non tender (even with deep palpation), soft, no organomegaly , distended (mild) Rectal: deferred Back: no CVA tenderness, no vertebral tenderness Extremities: no pedal edema, no calf tenderness, other (right hand is very swollen with hematoma, in wrist brace) Neurologic/Psychiatric: machine rough rounder II-XII nml as tested, no motor/sensory deficits, alert, normal mood/affect, oriented x 3 Skin: normal color, warm/dry, other (bruising on her legs) Lymphatic: no adenopathy (neck, axilla, or groin) Data Review Labs Laboratory Tests 02/13/17 13:55: White Blood Count 5.0, Red Blood Count 4.86, Hemoglobin 14.0, Hematocrit 43, Mean Corpuscular Volume 88, Mean Corpuscular Hemoglobin 29, Mean Corpuscular Hemoglobin Concent 33, Red Cell Distribution Width 14.1, Platelet Count 258, Mean Platelet Volume 10.4, Neutrophils (%) (Auto) 75, Lymphocytes (%) (Auto) 21 , Monocytes (%) (Auto) 2, Eosinophils (%) (Auto) 1, Basophils (%) (Auto) 0, Neutrophils # (Auto) 3.8, Lymphocytes # (Auto) 1.1, Monocytes # (Auto) 0.1, Eosinophils # (Auto) 0.1, Basophils # (Auto) 0.0, Prothrombin Time 13.6, INR Comment 1.0, Activated Partial Thromboplast Time 23L, Sodium Level 138, Potassium Level 5.0, Chloride Level 106, Carbon Dioxide Level 18L, Anion Gap 14 , Blood Urea Nitrogen 41H, Creatinine 2.14H, Estimat Glomerular Filtration Rate 22, BUN/Creatinine Ratio 19, Glucose Level 204H, Lactic Acid Level 3.25*H, Calcium Level 9.7, Total Bilirubin 0.9, Aspartate Amino Transf (AST/SGOT) 26, Alanine Aminotransferase (ALT/SGPT) 16, Alkaline Phosphatase 59, Total Protein 6.8, Albumin 3.9 02/13/17 16:20: Urine Color AMBERH, Urine Clarity VERY CLOUDYH, Urine pH 5, Urine Specific [place] 1.015L, Urine Protein 4+, Urine Glucose (UA) NEGATIVE, Urine Ketones 1+H , Urine Nitrite NEGATIVE, Urine Bilirubin 1+H, Urine Urobilinogen 4H, Urine Leukocyte Esterase 1+H, Urine RBC (Auto) 1+H, Urine RBC NONE, Urine WBC 5-10H, Urine Squamous Epithelial Cells 10-25H, Urine Crystals NONE, Urine Amorphous Sediment MOD JASIEL URATESH, Urine Bacteria FEWH, Urine Casts NONE, Urine Mucus NEGATIVE, Urine Culture Indicated YES 02/13/17 16:55: Lactic Acid Level 0.87 02/13/17 20:25: Lactic Acid Level 1.51 02/14/17 03:50: Stool Occult Blood Immunoassay POSITIVEH 02/14/17 04:10: White Blood Count 23.0H, Red Blood Count 3.83L, Hemoglobin 11.2L, Hematocrit 34L , Mean Corpuscular Volume 90, Mean Corpuscular Hemoglobin 29, Mean Corpuscular Hemoglobin Concent 33, Red Cell Distribution Width 14.0, Platelet Count 209, Mean Platelet Volume 10.3, Neutrophils (%) (Auto) 93H, Lymphocytes (%) (Auto) 3L , Monocytes (%) (Auto) 4, Eosinophils (%) (Auto) 0, Basophils (%) (Auto) 0, Neutrophils # (Auto) 21.4H, Lymphocytes # (Auto) 0.7L, Monocytes # (Auto) 0.8, Eosinophils # (Auto) 0.0, Basophils # (Auto) 0.0, Neutrophils % (Manual) 96, Lymphocytes % (Manual) 1, Monocytes % (Manual) 1, Eosinophils % (Manual) 0, Basophils % (Manual) 0, Band Neutrophils 2, Toxic Granulation 1+, Elliptocytes SLIGHT, Sodium Level 140, Potassium Level 4.5, Chloride Level 113H, Carbon Dioxide Level 16L, Anion Gap 11, Blood Urea Nitrogen 34H, Creatinine 1.45H, Estimat Glomerular Filtration Rate 34, BUN/Creatinine Ratio 23, Glucose Level 149H, Calcium Level 7.8L, Phosphorus Level 3.7, Magnesium Level 1.6L, Total Bilirubin 0.6, Aspartate Amino Transf (AST/SGOT) 20, Alanine Aminotransferase ( ALT/SGPT) 15, Alkaline Phosphatase 49, Total Protein 5.4L, Albumin 3.2 02/14/17 09:05: Urine Color YELLOW, Urine Clarity CLEAR, Urine pH 5, Urine Specific [place] 1.020, Urine Protein 3+H, Urine Glucose (UA) NEGATIVE, Urine Ketones NEGATIVE, Urine Nitrite NEGATIVE, Urine Bilirubin NEGATIVE, Urine Urobilinogen NORMAL, Urine Leukocyte Esterase 1+H, Urine RBC (Auto) 4+H, Urine RBC NONE, Urine WBC NONE, Urine Crystals NONE, Urine Bacteria TRACE, Urine Casts NONE, Urine Mucus NEGATIVE, Urine Culture Indicated NO Microbiology 02/14/17 C. difficile GDH Antigen & Toxins - Final, Complete Assessment/Plan Assessment/Plan Assessment/Plan 1. Abdominal Pain 2. Leukocytosis 3. Elevated lactic acid - normal today 4. GI bleed - unknown source 5. Hypotension - resolved today GI Bleed unknown source; possibilities include intestinal ischemia and infection. C. diff sent today. CT (per radiology) did not show any intestinal obstruction or other pathology, did have large fecal retention. Also hiatal hernia. I am unsure why the WBC count went up today; however with a relatively benign abdominal exam and the fact that pt doesn't want surgery, I would do nothing at this time. Will follow along with labs and physical exam and only plan for surgery if something comes up AND pt changes her mind and wants surgery. Thank you for this consult. Clinical Quality Measures DVT/VTE Risk/Contraindication: Risk Factor Score Per Nursin RFS Level Per Nursing on Admit: 3=High RAHEEL OTERO DO Feb 14, 2017 11:16
--- NOTE | 2017-02-14 13:03 | Consultation-Cardiology ---
HPI-Cardiology Cardiology Consultation: Date of Consultation 02/14/17 Date of Admission Attending Physician Jena Blas MD Admitting Physician Jena Blas MD Consulting Physician Phyllis GERMAN MD HPI: Time Seen by Provider: 13:00 Chief Complaint: Syncope This is a 86-year-old lady who is a patient of mine. I saw her yesterday in the morning for routine follow-up for history of atrial fibrillation, pacemaker , hypertension. She was doing well with no complaints. Apparently afterwards she went to a grocery store and had lunch. While she was going home she started to develop significant abdominal pain. When she reached home she was also near syncopal. And had diarrhea. Did not complain of any cardiac symptoms , specifically she denied chest pain, shortness of breath, palpitation. Review of Systems-Cardiology Review of Systems Constitutional: As described under HPI, lightheadedness, tiredness Eyes: No As described under HPI, No no symptoms reported, No blindness, No blurred vision, No contact lenses, No drainage, No decreased acuity, No foreign body sensation, No glasses, No inflammation, No pain, No photophobia, No previous injury, No shadows, No tunnel vision, No other, No vision change Ears/Nose/Throat: No As described under HPI, No no symptoms reported, No chronic hearing loss, No epistaxis, No ear discharge, No ear pain, No loose teeth, No mouth pain, No mouth swelling, No nasal drainage, No nose pain, No recent hearing loss, No throat pain, No throat swelling, No ulcerations, No other Respiratory: No no symptoms reported, No As described under HPI, No cough, No orthopnea, No shortness of breath, No SOB with excertion, No SOB at rest, No stridor, No wheezing, No other Cardiovascular: syncope Gastrointestinal: abdominal pain, diarrhea Genitourinary: No no symptoms reported, No As described under HPI, No burning, No dysuria, No discharge, No frequency, No flank pain, No hematuria, No incontinence, No pain, No urgency, No other, No urine frequency changes, No urine coloration changes : No Musculoskeletal: No no symptoms reported, No As describe under HPI, No back pain, No gout, No joint pain, No joint swelling, No muscle pain, No muscle stiffness, No neck pain, No other Skin: No no symptoms reported, No As described under HPI, No change in color, No change in hair/nails, No dryness, No lesions, No lumps, No rash, No other, No skin related problems, No ulcerations, No rash on exposed areas, No ulcerations on exposed areas Psychiatric/Neurological: No no symptoms reported, No As described under HPI, No anxiety, No depression, No emotional problems, No headache, No numbness, No pre-existing deficit, No seizure, No tingling, No tremors, No weakness, No other , No focal weakness, No syncope Hematologic: No no symptoms reported, No As described under HPI, No anemia, No blood clots, No easy bleeding, No easy bruising, No swollen glands, No other, No bleeding abnormalities All Other Systems Reviewed Negative Unless Noted: Yes RLB-Uyhlfk-Yxmnyx Hx Patient Social History Marrital Status: Employed/Student: retired Alcohol Use: Denies Use Recreational Drug Use: No Smoking Status: Never a Smoker 2nd Hand Smoke Exposure: No Recent Foreign Travel: No Recent Infectious Disease Expo: No Hospitalization with Isolation: Denies Physical Abuse Screen: No Sexual Abuse: No Immunizations Up To Date Tetanus Booster (TDap): Unknown Date of Pneumonia Vaccine: May 15, 2013 Date of Influenza Vaccine: Feb 02, 2013 Past Medical History PMH As described under Assessment. Family Medical History Family History: Patient reports no known family medical history. Allergies and Home Medications Allergies Coded Allergies: Penicillins (Verified Allergy, Unknown, 06/19/08) Sulfa (Sulfonamide Antibiotics) (Verified Allergy, Unknown, 06/19/08) Home Medications Alprazolam 0.5 Mg Tablet, 0.5-1 TAB PO TID PRN, (Reported) TAKES 1/2 TO 1 (0.5MG) TABLET NEEDED FOR ANXIETY Aspirin 81 Mg Tablet.dr, 81 MG PO DAILY, (Reported) Cholecalciferol 1,000 Unit Tablet, 1,000 UNIT PO DAILY, (Reported) Citalopram Hydrobromide 40 Mg Tablet, 40 MG PO DAILY, (Reported) Diltiazem Hcl 360 Mg Capsule.sa, 360 MG PO DAILY, (Reported) Flaxseed 1,000 Mg Capsule, 1,000 MG PO DAILY, (Reported) Furosemide 40 Mg Tablet, 40 MG PO DAILY PRN, (Reported) NEEDED FOR SWELLING Hydrocodone Bit/Acetaminophen 1 Each Tablet, 10-325 MG PO Q6H PRN, (Reported) NEEDED FOR PAIN Levothyroxine Sodium 25 Mcg Tablet, 25 MCG PO DAILY, (Reported) Lisinopril 40 Mg Tablet, 40 MG PO DAILY, (Reported) Physical Exam-Cardiology Physical Exam Vital Signs/I&O Vital Sign - Last 12Hours 02/14/17 02/14/17 02/14/17 02/14/17 02:00 03:00 04:00 04:00 Pulse 75 78 80 Resp 17 16 B/P (MAP) 178/81 180/80 160/72 Pulse Ox 95 95 96 94 O2 Delivery Nasal Cannula Nasal Cannula Nasal Cannula Nasal Cannula O2 Flow Rate 2.00 2.00 3.00 2.00 02/14/17 02/14/17 02/14/17 02/14/17 04:00 05:00 06:00 07:00 Temp 99.5 Pulse 82 78 81 Resp 21 13 29 B/P (MAP) 168/82 191/82 Pulse Ox 95 94 95 O2 Delivery Nasal Cannula Nasal Cannula Nasal Cannula O2 Flow Rate 2.00 2.00 2.00 02/14/17 02/14/17 02/14/17 02/14/17 07:00 07:49 08:00 08:00 Temp 100.5 Pulse 82 84 Resp 14 B/P (MAP) 186/88 Pulse Ox 96 96 O2 Delivery Nasal Cannula Nasal Cannula Nasal Cannula O2 Flow Rate 3.00 2.00 3.00 02/14/17 02/14/17 02/14/17 02/14/17 09:00 10:00 11:00 12:00 Pulse 77 73 77 Resp 17 13 14 B/P (MAP) 152/65 144/68 160/69 Pulse Ox 95 95 95 96 O2 Delivery Nasal Cannula Nasal Cannula Nasal Cannula Nasal Cannula O2 Flow Rate 2.00 2.00 2.00 3.00 02/14/17 12:00 Temp 98.9 Capillary Refill : Less Than 3 Seconds Constitutional: No appears stated age, No AAO x 3, No apparent distress, No PERRL, No well-developed, No well-nourished, No other HEENT: No PERRL, No normal ENT inspection, No TMs normal, No pharynx normal, No scleral icterus (R), No scleral icterus (L), No pale conjunctivae (R), No pale conjunctivae (L), No photophobia, No TM abnormal (R), No TM abnormal (L), No pharyngeal erythema, No tonsillar exudate, No other, No discharge, No EOMI, No hearing is well preserved, No hard of hearing, No oral hygience is good, No ulceration, No xanthelasmas are seen Neck: No non-tender, No full range of motion, No supple, No normal inspection, No carotid bruit, No limited range of motion, No lymphadenopathy (R), No lymphadenopathy (L), No tender lateral, No tender midline, No thyromegaly, No other, No carotid pulses are 2 + bilaterally, No with good upstrokes Respiratory: No accessory muscle use, No respiratory distress, No chest tender , No chest expansion is symmetric, No chest is bilaterally symmetric, No lungs clear to percussion, No lungs clear to auscultation, No crackles, No rhonchi, No rales, No stridor, No wheezing, No pleural rub, No other Cardiovascular: No regular rate-rhythm, No irregularly irregular, No extra beats, No parasternal heave is noted, No JVD, No edema, No bradycardia, No tachycardia, No point of maximal impulse, No cardiac thrills are palpable, No S1 and S2, No gallop/S3, No gallop/S4, No diastolic murmur, No systolic murmur, No friction rub, No click, No other Gastrointestinal: No tender, No soft, No round, No distended, No pulsatile mass , No organomegaly, No guarding, No rebound, No tenderness, No hernia, No mass, No audible bowel sounds, No abnormal bowel sounds, No abdominal bruits, No spleenomegaly, No other Rectal: deferred Extremities: No normal range of motion, No non-tender, No normal inspection, No pedal edema, No calf tenderness, No normal capillary refill, No pelvis stable , No calf tenderness, No inflammation, No pedal edema, No slow capillary refill , No swelling, No other, No abrasion, No clubbing, No cyanosis, No ecchymosis, No laceration, No no lower extremity edema bilateral, No significant edema, No tenderness, No wound Neurologic/Psychiatric: No veterinary medical officer II-XII nml as tested, No no motor/sensory deficits, No alert, No normal mood/affect, No oriented x 3, No abnormal cerebellar tests, No abnormal veterinary medical officer II-XII, No abnormal gait, No aphasia, No EOM palsy, No facial droop, No motor weakness, No sensory deficit, No depressed affect, No disoriented x 3, No other, No grossly intact, No power is 5/5 both on sides Skin: No normal color, No warm/dry, No cyanosis, No cool, No diaphoresis, No damp, No ecchymosis, No jaundice, No mottled, No pallor, No rash, No tattoos/ piercings, No ulcerations, No rash on exposed areas, No ulcerations on exposed areas, No other Lymphatic: no adenopathy (neck, axilla, or groin) Data Review Labs Laboratory Tests 02/13/17 13:55: White Blood Count 5.0, Red Blood Count 4.86, Hemoglobin 14.0, Hematocrit 43, Mean Corpuscular Volume 88, Mean Corpuscular Hemoglobin 29, Mean Corpuscular Hemoglobin Concent 33, Red Cell Distribution Width 14.1, Platelet Count 258, Mean Platelet Volume 10.4, Neutrophils (%) (Auto) 75, Lymphocytes (%) (Auto) 21 , Monocytes (%) (Auto) 2, Eosinophils (%) (Auto) 1, Basophils (%) (Auto) 0, Neutrophils # (Auto) 3.8, Lymphocytes # (Auto) 1.1, Monocytes # (Auto) 0.1, Eosinophils # (Auto) 0.1, Basophils # (Auto) 0.0, Prothrombin Time 13.6, INR Comment 1.0, Activated Partial Thromboplast Time 23L, Sodium Level 138, Potassium Level 5.0, Chloride Level 106, Carbon Dioxide Level 18L, Anion Gap 14 , Blood Urea Nitrogen 41H, Creatinine 2.14H, Estimat Glomerular Filtration Rate 22, BUN/Creatinine Ratio 19, Glucose Level 204H, Lactic Acid Level 3.25*H, Calcium Level 9.7, Total Bilirubin 0.9, Aspartate Amino Transf (AST/SGOT) 26, Alanine Aminotransferase (ALT/SGPT) 16, Alkaline Phosphatase 59, Total Protein 6.8, Albumin 3.9 02/13/17 16:20: Urine Color AMBERH, Urine Clarity VERY CLOUDYH, Urine pH 5, Urine Specific [place] 1.015L, Urine Protein 4+, Urine Glucose (UA) NEGATIVE, Urine Ketones 1+H , Urine Nitrite NEGATIVE, Urine Bilirubin 1+H, Urine Urobilinogen 4H, Urine Leukocyte Esterase 1+H, Urine RBC (Auto) 1+H, Urine RBC NONE, Urine WBC 5-10H, Urine Squamous Epithelial Cells 10-25H, Urine Crystals NONE, Urine Amorphous Sediment MOD JASIEL URATESH, Urine Bacteria FEWH, Urine Casts NONE, Urine Mucus NEGATIVE, Urine Culture Indicated YES 02/13/17 16:55: Lactic Acid Level 0.87 02/13/17 20:25: Lactic Acid Level 1.51 02/14/17 03:50: Stool Occult Blood Immunoassay POSITIVEH 02/14/17 04:10: White Blood Count 23.0H, Red Blood Count 3.83L, Hemoglobin 11.2L, Hematocrit 34L , Mean Corpuscular Volume 90, Mean Corpuscular Hemoglobin 29, Mean Corpuscular Hemoglobin Concent 33, Red Cell Distribution Width 14.0, Platelet Count 209, Mean Platelet Volume 10.3, Neutrophils (%) (Auto) 93H, Lymphocytes (%) (Auto) 3L , Monocytes (%) (Auto) 4, Eosinophils (%) (Auto) 0, Basophils (%) (Auto) 0, Neutrophils # (Auto) 21.4H, Lymphocytes # (Auto) 0.7L, Monocytes # (Auto) 0.8, Eosinophils # (Auto) 0.0, Basophils # (Auto) 0.0, Neutrophils % (Manual) 96, Lymphocytes % (Manual) 1, Monocytes % (Manual) 1, Eosinophils % (Manual) 0, Basophils % (Manual) 0, Band Neutrophils 2, Toxic Granulation 1+, Elliptocytes SLIGHT, Sodium Level 140, Potassium Level 4.5, Chloride Level 113H, Carbon Dioxide Level 16L, Anion Gap 11, Blood Urea Nitrogen 34H, Creatinine 1.45H, Estimat Glomerular Filtration Rate 34, BUN/Creatinine Ratio 23, Glucose Level 149H, Calcium Level 7.8L, Phosphorus Level 3.7, Magnesium Level 1.6L, Total Bilirubin 0.6, Aspartate Amino Transf (AST/SGOT) 20, Alanine Aminotransferase ( ALT/SGPT) 15, Alkaline Phosphatase 49, Total Protein 5.4L, Albumin 3.2 02/14/17 09:05: Urine Color YELLOW, Urine Clarity CLEAR, Urine pH 5, Urine Specific [place] 1.020, Urine Protein 3+H, Urine Glucose (UA) NEGATIVE, Urine Ketones NEGATIVE, Urine Nitrite NEGATIVE, Urine Bilirubin NEGATIVE, Urine Urobilinogen NORMAL, Urine Leukocyte Esterase 1+H, Urine RBC (Auto) 4+H, Urine RBC NONE, Urine WBC NONE, Urine Crystals NONE, Urine Bacteria TRACE, Urine Casts NONE, Urine Mucus NEGATIVE, Urine Culture Indicated NO 02/14/17 12:09: Glucometer 105 Microbiology 02/14/17 C. difficile GDH Antigen & Toxins - Final, Complete A/P-Cardiology Assessment/Admission Diagnosis Abdominal pain, diarrhea, dehydration, Near syncope, History of atrial fibrillation, Permanent pacemaker. Plan Likely abdominal etiology for abdominal pain, diarrhea and near syncope. Given IV fluids. No acute cardiac issues. Remote history of atrial fibrillation. She has a permanent pacemaker; device interrogation reveals no atrial fibrillation episodes in the last 3-1/2 years. I had discontinued both Coumadin and amiodarone. She is only on full aspirin and rate controlling agent. Thank you for your consultation. Please call me if you have any questions. Eloy German MD, FACP, FACC, FSCAI, FHRS, CCDS Interventional Cardiology Cardiac Electrophysiology Vascular Medicine and Endovascular Interventions Clinical Quality Measures DVT/VTE Risk/Contraindication: Risk Factor Score Per Nursin RFS Level Per Nursing on Admit: 3=High Phyllis GERMAN MD Feb 14, 2017 1:03 pm
[2017-02-14] MEDS ORDERED: HYDR100T27 PO (13:04)
[2017-02-14] MEDS ORDERED: CARV12.53 PO (13:04)
[2017-02-14] MEDS ORDERED: HYDROcodone/APAP 10 MG/325 MG (LORTAB) TAB PO PRN (13:45)
[2017-02-14] MEDS ORDERED: CARVEDILOL 12.5 MG (COREG) TABLET ONE (14:05)
[2017-02-14] MEDS: hydrALAZINE (APRESOLINE) 25 MG TAB PO PRN (14:15)
[2017-02-14] MEDS: CARVEDILOL 12.5 MG (COREG) TABLET PO SCH ×2 (14:16→21:19)
--- NOTE | 2017-02-14 14:23 | Physical Therapy Progress Note ---
Therapy Progress Note Reviewed medical chart and visited with patient. Left a walker in the room. Pt just transferred to 4th floor from ICU. She report her blood pressure spiked and she is having abdominal pain. Plan to visit with patient tomorrow am to will attempt physical mobility assessment at that time. Ernie Navarrete, PT ERNIE NAVARRETE PT Feb 14, 2017 14:23
[2017-02-14] MEDS ORDERED: amLODIPine 10 MG (NORVASC) TAB ONE (16:34)
[2017-02-14] MEDS ORDERED: amLODIPine 10 MG (NORVASC) TAB PO ONE (16:45)
[2017-02-14] MEDS ORDERED: cefTRIAXone 1 GM/NS 50 ML IVPB IV SCH ×4 (17:00)
[2017-02-15] VITALS (8 sets, daily range): BP systolic 130–180; BP diastolic 50–88
[2017-02-15] MEDS: hydrALAZINE (APRESOLINE) 25 MG TAB PO PRN (05:02)
[2017-02-15] MEDS: HYDROmorphone (DILAUDID) 2 MG/ML VIAL IVP PRN (05:03)
[2017-02-15 06:45] LABS: BASOPHILS % (AUTO) 0 % (0-10); EOSINOPHILS % (AUTO) 0 % (0-10); LYMPHOCYTES # (AUTO) 0.7 X 10^3 (1.0-4.0); LYMPHOCYTES % (AUTO) 3 % (12-44); MEAN CORPUSCULAR HEMOGLOBIN 29 PG (25-34); MEAN CORPUSCULAR HGB CONC 32 G/DL (32-36); MEAN CORPUSCULAR VOLUME 91 FL (80-99); MEAN PLATELET VOLUME 10.9 FL (7.4-10.4); MONOCYTES # (AUTO) 1.3 X 10^3 (0.0-1.0); MONOCYTES % (AUTO) 6 % (0-12); NEUTROPHILS # (AUTO) 19.6 X 10^3 (1.8-7.8); NEUTROPHILS % (AUTO) 91 % (42-75); PLATELET COUNT 157 10^3/uL (130-400); RED BLOOD COUNT 3.28 10^6/uL (4.35-5.85); RED CELL DISTRIBUTION WIDTH 14.1 % (10.0-14.5); WHITE BLOOD COUNT 21.6 10^3/uL (4.3-11.0)
[2017-02-15 07:14] LABS: CALCIUM 7.6 MG/DL (8.5-10.1); CREATININE SERUM 1.05 MG/DL (0.60-1.30); MAGNESIUM 1.3 MG/DL (1.8-2.4); POTASSIUM 4.1 MMOL/L (3.6-5.0)
[2017-02-15] MEDS: DILTIAZEM 180 MG (CARDIZEM CD) CAP PO SCH (08:18)
[2017-02-15] MEDS: VITAMIN D3 1,000 UNITS (CHOLECALCIFEROL) TABLET PO SCH (08:18)
[2017-02-15] MEDS: LEVOTHYROXINE 25 MCG (LEVOTHROID) TAB PO SCH (08:18)
[2017-02-15] MEDS: ASPIRIN 81 MG CHEW (CHILDREN'S ASA) PO SCH (08:19)
[2017-02-15] MEDS: CARVEDILOL 12.5 MG (COREG) TABLET PO SCH ×2 (08:19→20:33)
[2017-02-15] MEDS: HYDROcodone/APAP 10 MG/325 MG (LORTAB) TAB PO PRN ×2 (08:57→15:52)
[2017-02-15] MEDS: NS IV 1000 ML 1,000 ML IV SCH (10:37)
[2017-02-15] MEDS: VANCOMYCIN INJECTION 1,000 MG in NS (IVPB) 250 ML IV SCH ×2 (11:05→23:33)
[2017-02-15 11:07] LABS: ALBUMIN 2.8 GM/DL (3.2-4.5); BILIRUBIN,TOTAL 0.5 MG/DL (0.1-1.0); TOTAL PROTEIN 4.9 GM/DL (6.4-8.2)
--- NOTE | 2017-02-15 11:26 | Cardiology Progress Note ---
Cardiology SOAP Progress Note Subjective: complains of shoulder pain and right wrist pain Objective: I&O/Vital Signs Vital Sign - Last 12Hours 02/15/17 02/15/17 02/15/17 02/15/17 00:00 04:53 06:30 07:14 Temp 98.7 100.4 Pulse 75 80 68 Resp 20 20 B/P (MAP) 150/60 170/82 150/64 Pulse Ox 91 94 O2 Delivery Room Air Nasal Cannula Nasal Cannula O2 Flow Rate 2.00 2.00 02/15/17 02/15/17 08:28 08:46 Temp 98.4 Pulse 83 Resp 22 B/P (MAP) 180/88 Pulse Ox 91 O2 Delivery Nasal Cannula Nasal Cannula O2 Flow Rate 2.00 2.00 Weight (Pounds): 172 Weight (Ounces): 3.0 Weight (Calculated Kilograms): [id number] Constitutional: No appears stated age, No AAO x 3, No apparent distress, No PERRL, No well-developed, No well-nourished, No other Respiratory: No accessory muscle use, No respiratory distress, No chest tender , No chest expansion is symmetric, No chest is bilaterally symmetric, No lungs clear to percussion, No lungs clear to auscultation, No crackles, No rhonchi, No rales, No stridor, No wheezing, No pleural rub, No other Cardiovascular: No regular rate-rhythm, No irregularly irregular, No extra beats, No parasternal heave is noted, No JVD, No edema, No bradycardia, No tachycardia, No point of maximal impulse, No cardiac thrills are palpable, No S1 and S2, No gallop/S3, No gallop/S4, No diastolic murmur, No systolic murmur, No friction rub, No click, No other Gastrointestional: No tender, No soft, No round, No distended, No pulsatile mass, No organomegaly, No guarding, No rebound, No tenderness, No hernia, No mass, No audible bowel sounds, No abnormal bowel sounds, No abdominal bruits, No spleenomegaly, No other Extremities: No normal range of motion, No non-tender, No normal inspection, No pedal edema, No calf tenderness, No normal capillary refill, No pelvis stable , No calf tenderness, No inflammation, No pedal edema, No slow capillary refill , No swelling, No other, No abrasion, No clubbing, No cyanosis, No ecchymosis, No laceration, No no lower extremity edema bilateral, No significant edema, No tenderness, No wound Neurologic/Psychiatric: No prepared foods associate II-XII nml as tested, No no motor/sensory deficits, No alert, No normal mood/affect, No oriented x 3, No abnormal cerebellar tests, No abnormal prepared foods associate II-XII, No abnormal gait, No aphasia, No EOM palsy, No facial droop, No motor weakness, No sensory deficit, No depressed affect, No disoriented x 3, No other, No grossly intact, No power is 5/5 both on sides Skin: No normal color, No warm/dry, No cyanosis, No cool, No diaphoresis, No damp, No ecchymosis, No jaundice, No mottled, No pallor, No rash, No tattoos/ piercings, No ulcerations, No rash on exposed areas, No ulcerations on exposed areas, No other Results/Procedures: Labs Laboratory Tests 02/14/17 12:09: Glucometer 105 02/15/17 05:46: White Blood Count 21.6H, Red Blood Count 3.28L, Hemoglobin 9.5L, Hematocrit 30L , Mean Corpuscular Volume 91, Mean Corpuscular Hemoglobin 29, Mean Corpuscular Hemoglobin Concent 32, Red Cell Distribution Width 14.1, Platelet Count 157, Mean Platelet Volume 10.9H, Neutrophils (%) (Auto) 91H, Lymphocytes (%) (Auto) 3L, Monocytes (%) (Auto) 6, Eosinophils (%) (Auto) 0, Basophils (%) (Auto) 0, Neutrophils # (Auto) 19.6H, Lymphocytes # (Auto) 0.7L, Monocytes # (Auto) 1.3H, Eosinophils # (Auto) 0.0, Basophils # (Auto) 0.0, Sodium Level 137, Potassium Level 4.1, Chloride Level 112H, Carbon Dioxide Level 18L, Anion Gap 7, Blood Urea Nitrogen 20H, Creatinine 1.05, Estimat Glomerular Filtration Rate 50, BUN/ Creatinine Ratio 19, Glucose Level 127H, Calcium Level 7.6L, Magnesium Level 1.3L, Total Bilirubin 0.5, Aspartate Amino Transf (AST/SGOT) 17, Alanine Aminotransferase (ALT/SGPT) 11, Alkaline Phosphatase 43, Total Protein 4.9L, Albumin 2.8L Microbiology 02/13/17 Blood Culture - Preliminary, Resulted Staph, Coag Neg (Freight Loading Supervisor) 02/14/17 C. difficile GDH Antigen & Toxins - Final, Complete 02/13/17 Urine Culture - Final, Complete NO GROWTH A/P: Assessment/Dx: Abdominal pain, diarrhea, dehydration, Near syncope, History of atrial fibrillation, Permanent pacemaker. history of fall Plan: Likely abdominal etiology for abdominal pain, diarrhea and near syncope. Given IV fluids. No acute cardiac issues. Remote history of atrial fibrillation. She has a permanent pacemaker; device interrogation reveals no atrial fibrillation episodes in the last 3-1/2 years. I had discontinued both Coumadin and amiodarone. She is only on full aspirin and rate controlling agent. blood pressure management. Thank you for your consultation. Please call me if you have any questions. Eloy Geramn MD, FACP, FACC, FSCAI, FHRS, CCDS Interventional Cardiology Cardiac Electrophysiology Vascular Medicine and Endovascular Interventions Phyllis GERMAN MD Feb 15, 2017 11:26 am
[2017-02-15] MEDS ORDERED: NITROGLYCERIN 2% OINT 1 GM UNIT DOSE PACKET TOP PRN (11:45)
[2017-02-15] MEDS: FUROSEMIDE 40 MG (LASIX) TAB PO SCH (12:04)
[2017-02-15] MEDS: MAGNESIUM 1 GM/100 ML IVPB 100 ML IV SCH ×2 (12:04→13:42)
[2017-02-15] MEDS: lisINopril 20 MG (ZESTRIL) TAB PO SCH (12:04)
[2017-02-15] MEDS: hydrALAZINE (APRESOLINE) 25 MG TAB PO SCH ×2 (12:04→20:33)
--- NOTE | 2017-02-15 12:30 | Progress Note-Hospitalist ---
Progress Note HPI/CC on Admission CC: Severe sepsis of unknown source except presumed viral gastroenteritis with severe volume depletion with acute renal failure HPI: This is an 86-year-old white female clinic patient of Dr. Blas and who presents to the emergency room after a fall at home sustaining a right ulnar distal fracture but reported near syncopal episode all day yesterday that resulted in the fall. She reports that she began having abdominal pain and cramping and severe diarrhea with blood-tinged bowel contents in the toilet and in the ER was found to have severe sepsis with systolic blood pressure of 70 requiring aggressive IV fluid resuscitation with good resolution of the hypotension but urine looked slightly abnormal so Rocephin was given empirically lactic acid of 3 was noted to likely be from hypovolemic lactic acidosis with hypotension and acute renal failure. At this current time she is feeling much better and I have consulted Dr. Olivera to assess for possible colitis and review of CT scan of the abdomen and pelvis. Progress Notes/Assess & Plan Date Seen 02/15/17 Time Seen by Provider: 11:20 Admission Dx/Process Assessment: Severe sepsis likely due to hypovolemic hypotension with acute renal failure from acute and severe gastroenteritis Abnormal UA urine culture pending placed on Rocephin empirically Leukocytosis after normal white count and ER History of irregular heartbeat managed by cardiology Dr. German History of hypertension Diagonsis/Assessment & Plan Chart Review: Max fever 100.4 WBC to 21.6 Hgb 9.5 down from 14 then 11.4 K+ 4.1 Creat 1.05 Mg++ low so will supplement with 2 g IV Blood cx coag negative staph x 2 bottles so I spoke to Ann in Micro and she had already set up the media plate in order to assess sensitivities C. diff negative Urine cx no growth to date so will DC Rocephin and place on Vanc due to coag negative Staph x 2 of the 4 aerobic bottles recreation instructor: Dr. Olivera would like me to call radiologist, X-ray did not look complete on her arm. Dr. Olivera believes the forearm is broken as well but she remains in splint and will just need follow up with ortho as outpt Patient Interview: Family was visiting upon interview I informed the pt that I will have the catheter removed so she can ambulate. Pt states she would like to have a shower Pt states she is eating, she ate oatmeal with juice this am. I informed the pt that I will turn off IVF Pt states she used a walker years ago, but has not needed it recently Labs discussed and kidneys look better. Urine and stool tests were negative Pt was informed that due to the bacterial infection and I changed her abx Pt mentioned that she had trouble with BP last night and states that she believed it had more to do with the pain in her arm and abdomen Pt states her BMs are loose with blood and mucus and pt states she is flatulent Physical exam stable. Lungs sound perfect AF except isolated 100.4, pleasant, improved. lying in bed, family at bedside RRR w/irregularity CTAB No edema Right arm in sling and right lower arm in brace Laboratory Tests 02/15/17 05:46 Assessment: Severe sepsis likely due to hypovolemic hypotension with acute renal failure from acute and severe gastroenteritis and now with coag-negative Staph in 2/4 BCx and continued elevated wbc and low grade fever so set the media plate in micro for sensitivities and placed on Vanc empirically Abnormal UA urine culture pending placed on Rocephin empirically but UCX NGTD so DC Rocephin Leukocytosis after normal white count and ER but now only slightly decreased from 23k to 21k today History of irregular heartbeat managed by cardiology Dr. German I appreciate his consultation History of hypertension and now very elevated after hypotension resolved from severe sepsis so will restart her Hydralazine and give NTG oint if needed to significantly elevated BP Right ulnar fracture due to fall placed in brace needs ortho outpt consultation Plan: Consult cardiology is appreciated Consultation Gen. surgery is appreciated Check labs in a.m. Monitor closely SCD's Vancomycin for BCx x 2 coag negative staph DC Rocephin DC catheter Heplock IVF Aid pt in improving hygiene Hydralazine home dose restart Restart Lasix, Lisinopril Nitroglycerin ointment prn for elevated BP Scribed by Lyndsay Almendarez under the direct supervision of Dr. Patel. Diagnosis/Problems Diagnosis/Problems (1) Severe sepsis with acute organ dysfunction Status: Acute Assessment & Plan: s/p aggressive IVF now lactic acidosis is resolved (2) Renal failure, acute Status: Acute Assessment & Plan: Maintain IVF, check in am Qualifiers: Qualified Codes: N17.9 - Acute kidney failure, unspecified (3) Leukocytosis, unspecified Status: Acute Assessment & Plan: Due to sepsis response (4) Abnormal urinalysis Status: Acute Assessment & Plan: Await UCx tomorrow and maintain abx coverage empirically until completed (5) Diarrhea of presumed infectious origin Status: Acute Assessment & Plan: Consult dr Olivera, CT scan to be reviewed (6) Irregular heart beat Status: Chronic Assessment & Plan: Consult Dr German her Steam Hand (7) Right distal ulnar fracture Status: Chronic Assessment & Plan: Consult her Steam Hand Dr German Qualifiers: Qualified Codes: S52.601A - Unspecified fracture of lower end of right ulna , initial encounter for closed fracture (8) Dehydration Status: Acute Assessment & Plan: Maintain IVF JARON PATEL DO Feb 15, 2017 12:29
--- NOTE | 2017-02-15 12:33 | Progress Note ---
Subjective Date Seen by Provider: Feb 15, 2017 Time Seen by Provider: 10:26 Subjective/Events-last exam Pt seen and examined, appears comfortable in bed. However, nurse states she was complaining of 10 out of 10 pain. Now pt. states pain is controlled she did receive Hydrocodone. Nurse did note pt still had some blood in BM. Review of Systems General: Fatigue, Malaise HEENT: No Head Aches, No Sore Throat Pulmonary: No Dyspnea, No Cough Cardiovascular: No: Chest Pain, Palpitations Gastrointestinal: Nausea, Vomiting, Abdominal Pain Musculoskeletal: arm pain (right wrist- fractured ulna) Objective Exam Vital Signs Date Time Temp Pulse Resp B/P (MAP) Pulse Ox O2 Delivery O2 Flow Rate FiO2 02/15/17 08:46 98.4 83 22 180/88 91 Nasal Cannula 2.00 02/15/17 08:28 Nasal Cannula 2.00 02/15/17 07:14 Nasal Cannula 2.00 02/15/17 06:30 68 150/64 02/15/17 04:53 100.4 80 20 170/82 94 Nasal Cannula 2.00 02/15/17 00:00 98.7 75 20 150/60 91 Room Air 02/14/17 22:00 62 158/62 02/14/17 21:15 80 168/72 02/14/17 21:00 Nasal Cannula 2.00 02/14/17 20:00 98.9 82 18 92 Room Air 02/14/17 16:20 99.6 78 18 215/75 95 Room Air 02/14/17 13:45 Nasal Cannula 2.00 02/14/17 13:00 79 02/14/17 13:00 79 14 186/82 96 Nasal Cannula 2.00 I & O 02/16/17 07:00 Intake Total 400 ml Balance 400 ml Capillary Refill : Less Than 3 SecondsLess Than 3 Seconds General Appearance: WD/WN, Chronically ill, Mild Distress HEENT: PERRL/EOMI, Normal ENT Inspection, Pharynx Normal Neck: Carotid Bruit Respiratory: Chest Non Tender, Lungs Clear, Normal Breath Sounds, No Accessory Muscle Use, No Respiratory Distress Cardiovascular: Regular Rate, Rhythm, No Murmur Gastrointestinal: soft, no organomegaly, distended (appears a little larger than yesterday), tenderness (with deep palpation) Extremity: Non Tender, No Calf Tenderness, No Pedal Edema Neurologic/Psychiatric: Alert, Oriented x3, Normal Mood/Affect Skin: Normal Color, Warm/Dry Results Lab Laboratory Tests 02/15/17 05:46: White Blood Count 21.6H, Red Blood Count 3.28L, Hemoglobin 9.5L, Hematocrit 30L , Mean Corpuscular Volume 91, Mean Corpuscular Hemoglobin 29, Mean Corpuscular Hemoglobin Concent 32, Red Cell Distribution Width 14.1, Platelet Count 157, Mean Platelet Volume 10.9H, Neutrophils (%) (Auto) 91H, Lymphocytes (%) (Auto) 3L, Monocytes (%) (Auto) 6, Eosinophils (%) (Auto) 0, Basophils (%) (Auto) 0, Neutrophils # (Auto) 19.6H, Lymphocytes # (Auto) 0.7L, Monocytes # (Auto) 1.3H, Eosinophils # (Auto) 0.0, Basophils # (Auto) 0.0, Sodium Level 137, Potassium Level 4.1, Chloride Level 112H, Carbon Dioxide Level 18L, Anion Gap 7, Blood Urea Nitrogen 20H, Creatinine 1.05, Estimat Glomerular Filtration Rate 50, BUN/ Creatinine Ratio 19, Glucose Level 127H, Calcium Level 7.6L, Magnesium Level 1.3L, Total Bilirubin 0.5, Aspartate Amino Transf (AST/SGOT) 17, Alanine Aminotransferase (ALT/SGPT) 11, Alkaline Phosphatase 43, Total Protein 4.9L, Albumin 2.8L Microbiology 02/13/17 Blood Culture - Preliminary, Resulted Staph, Coag Neg (Thermo Processor) 02/14/17 C. difficile GDH Antigen & Toxins - Final, Complete 02/13/17 Urine Culture - Final, Complete NO GROWTH Assessment/Plan Assessment/Plan Assessment/Plan 1. Abdominal Pain - helped with pain meds, but slightly more distended today. AAS ordered today, will check. 2. Leukocytosis - WBC down, but still 21.4 today 3. Elevated lactic acid - normal today 4. GI bleed - unknown source 5. Hypotension - resolved GI Bleed unknown source; possibilities include intestinal ischemia and infection. C. diff still pending. Pt still doesn't want surgery, but would like me to talk to her son. I will check AAS and then call her son. Clinical Quality Measures DVT/VTE Risk/Contraindication: Risk Factor Score Per Nursin RFS Level Per Nursing on Admit: 3=High RAHEEL OTERO DO Feb 15, 2017 12:33
--- NOTE | 2017-02-15 13:44 | Physical Therapy Evaluation ---
PT Evaluation-General Medical Diagnosis Admission Date Feb 13, 2017 at 17:00 Medical Diagnosis: SEPSIS; ACUTE RENAL FAILURE Onset Date: Feb 13, 2017 Therapy Diagnosis Therapy Diagnosis: WEAKNESS Height/Weight Height (Feet): 5 Height (Inches): 5.00 Weight (Pounds): 172 Weight (Ounces): 3.0 Precautions Precautions/Isolations: Fall Prevention, Standard Precautions Weight Bear Status Right Lower Extremity: Right Referral Physician: Jena Blas MD Reason for Referral: Evaluation/Treatment Medical History Pertinent Medical History: HTN Additional Medical History bladder Cancer, pacemaker Social History Home: Single Level Current Living Status: Alone Prior/Core FIM Prior Level of Function Functional [place] Measure 0=Not Assessed/NA 4=Minimal Assistance 1=Total Assistance 5=Supervision or Setup 2=Maximal Assistance 6=Modified [place] 3=Moderate Assistance 7=Complete [place] Bed Mobility: 7 Transfers (B,C,W/C) (FIM): 7 Gait: 6 PT Evaluation-Current Subjective Pt had a syncopal episode at home resulting in a fall. She sustained a right distal ulnar fx. Pt/Family Goals regains strength and return to home Objective Patient Orientation: Normal For Age Attachments: Oxygen, IV splint on the (R) forearm and sling when upright ROM/Strength ROM Lower Extremities WFL Strength Lower Extremities gross 4/5 Sensory Vision: Wears Glasses Hearing: Functional Hand Dominance: Right Transfers Functional [place] Measure 0=Not Assessed/NA 4=Minimal Assistance 1=Total Assistance 5=Supervision or Setup 2=Maximal Assistance 6=Modified [place] 3=Moderate Assistance 7=Complete [place] Transfers (B, C, W/C) (FIM): 3 Scootin Rollin Supine to/from Sit: 3 Sit to/from Stand: 4 Gait Mode of Locomotion: Walk Anticipated Mode of Locomotion: Walk Gait (FIM): 2 Distance (FIM): [phone] ft (2) Distance: 50 Gait Level of Assist: 4 Gait Persons Needed: 2 Gait Assistive Device: Handheld Assist Comments/Gait Description walked 50 ft hand held assist for stability. Assist of a second person for IV and O2 tank. Pt not able to use FWW or cane at this time due to pain in (R) UE. Unsure at this time of wt bearing tolerance through the (R) arm. Balance Sitting Static: Fair Sitting Dynamic: Fair Standing Static: Poor Standing Dynamic: Poor Assessment/Needs Pt having difficulty with all functional mobility at this time. She is slow and weak from her fall and medical illness. The inability to use the right arm at this time is the primary limitation for bed mobility and transfers. Her gait is limited by balance and fear of falling. Pt will benefit from therapy to restore functional mobility and promote dc to home. Rehab Potential: Good Equipment Needs walker or trent walker depending on status of ulnar fx PT Retirement Goals Commissioner Of Conciliation Goals PT Commissioner Of Conciliation Goals Time Frame: Feb 20, 2017 Gait distance (FIM): 3=150 ft Distance: 150 Gait Assistive Device: Cane Single Point # of Steps: 3 Stairs Level Of Assist: 4 PT Plan Problem List Problem List: Activity Tolerance, Functional Strength, Safety, Balance, Gait, Transfer, Bed Mobility Treatment/Plan Treatment Plan: Continue Plan of Care Treatment Plan: Bed Mobility, Education, Functional Activity [place], Functional Strength, Gait, Safety, Therapeutic Exercise, Transfers Treatment Duration: Feb 20, 2017 Frequency: 11 times per week Estimated Hrs Per Day: .25 hour per day Patient and/or Family Agrees t: Yes Plan to see this patient twice per day during the week and daily on weekend until mobility improves. Safety Risks/Education Patient Education: Gait Training Teaching Recipient: Patient Teaching Methods: Demonstration, Discussion Discharge Recommendations Therapy D/C Recommendations: Home w/ Family Support, Occupational Therapy Home Care, Physical Therapy Home Care, Intermittent Supervision Target Placement Home with family support and home health care Time/GCodes Time In: 1330 Time Out: 1350 Total Billed Treatment Time: 20 Total Billed Treatment visit, evaluation moderate complexity 20 minutes ETIENNE DEGROOT PT Feb 15, 2017 13:44
--- NOTE | 2017-02-15 14:35 | Diagnostic Imaging Report ---
INDICATION: Abdominal distention. COMPARISON: Chest radiograph of 02/14/17 FINDINGS: Small left pleural effusion. Left basilar subsegmental atelectasis. The remainder of the lungs are clear. Cardiomegaly with left pectoral dual-chamber pacemaker. No free intraperitoneal air. Nonobstructive bowel gas pattern. Gas filled but nondilated loops of small bowel and colon are present within the abdomen. Degenerative changes in the lumbar spine. IMPRESSION: 1. Nonobstructive bowel gas pattern and no free intraperitoneal air. 2. Gas-filled nondilated loops of small bowel and colon can be seen with ileus. 3. Small left pleural effusion. Dictated by: Dictated on workstation # [id number]
[2017-02-15] MEDS: ALPRAZolam 0.5 MG (XANAX) TAB PO PRN (20:33)
[2017-02-15] MEDS ORDERED: hydrALAZINE (APRESOLINE) 25 MG TAB PO SCH (21:00)
[2017-02-16] VITALS: BP 118/58
[2017-02-16] MEDS: HYDROcodone/APAP 10 MG/325 MG (LORTAB) TAB PO PRN ×2 (02:13→18:54)
[2017-02-16 04:00] VITALS: BP 122/60
[2017-02-16 05:32] LABS: BASOPHILS % (AUTO) 0 % (0-10); EOSINOPHILS # (AUTO) 0.1 10^3/uL (0.0-0.3); EOSINOPHILS % (AUTO) 1 % (0-10); LYMPHOCYTES # (AUTO) 0.9 X 10^3 (1.0-4.0); LYMPHOCYTES % (AUTO) 6 % (12-44); MEAN CORPUSCULAR HEMOGLOBIN 29 PG (25-34); MEAN CORPUSCULAR HGB CONC 31 G/DL (32-36); MEAN CORPUSCULAR VOLUME 91 FL (80-99); MEAN PLATELET VOLUME 10.7 FL (7.4-10.4); MONOCYTES # (AUTO) 1.1 X 10^3 (0.0-1.0); MONOCYTES % (AUTO) 8 % (0-12); NEUTROPHILS # (AUTO) 11.7 X 10^3 (1.8-7.8); NEUTROPHILS % (AUTO) 85 % (42-75); PLATELET COUNT 133 10^3/uL (130-400); RED BLOOD COUNT 3.05 10^6/uL (4.35-5.85); RED CELL DISTRIBUTION WIDTH 13.9 % (10.0-14.5); WHITE BLOOD COUNT 13.8 10^3/uL (4.3-11.0)
[2017-02-16 05:57] LABS: ALBUMIN 2.6 GM/DL (3.2-4.5); BILIRUBIN,TOTAL 0.5 MG/DL (0.1-1.0); CALCIUM 7.8 MG/DL (8.5-10.1); CREATININE SERUM 1.48 MG/DL (0.60-1.30); MAGNESIUM 1.9 MG/DL (1.8-2.4); POTASSIUM 4.2 MMOL/L (3.6-5.0); TOTAL PROTEIN 4.8 GM/DL (6.4-8.2)
[2017-02-16 08:14] VITALS: BP 110/58
--- NOTE | 2017-02-16 08:27 | Pulmonary Consultation ---
History of Present Illness History of Present Illness Date of Consultation 02/16/17 08:22 Time Seen by Provider: 08:22 Date of Admission History of Present Illness 86yo presented to to ED after falling at home and sustating a right ulnar fracture. Pt also reports having abdominal pain with blood-tinged BMs. Upon admission she was found to have severe sepsis with SBP of 70's which improved with IVF. Pt was placed on Rocephin. PT has been requiring 3 liters of oxygen. SHe is not normally on oxygen at home. Allergies and Home Medications Allergies Coded Allergies: Penicillins (Verified Allergy, Unknown, 06/19/08) Sulfa (Sulfonamide Antibiotics) (Verified Allergy, Unknown, 06/19/08) Home Medications Alprazolam 0.5 Mg Tablet, 0.5-1 TAB PO TID PRN, (Reported) TAKES 1/2 TO 1 (0.5MG) TABLET NEEDED FOR ANXIETY Aspirin 81 Mg Tablet.dr, 81 MG PO DAILY, (Reported) Carvedilol 12.5 Mg Tablet, 12.5 MG PO BID, (Reported) Cholecalciferol 1,000 Unit Tablet, 1,000 UNIT PO DAILY, (Reported) Citalopram Hydrobromide 40 Mg Tablet, 40 MG PO DAILY, (Reported) Diltiazem Hcl 360 Mg Capsule.sa, 360 MG PO DAILY, (Reported) Flaxseed 1,000 Mg Capsule, 1,000 MG PO DAILY, (Reported) Furosemide 40 Mg Tablet, 40 MG PO DAILY PRN, (Reported) NEEDED FOR SWELLING Hydralazine HCl 100 Mg Tablet, 100 MG PO BID, (Reported) Hydrocodone Bit/Acetaminophen 1 Each Tablet, 10-325 MG PO Q6H PRN, (Reported) NEEDED FOR PAIN Levothyroxine Sodium 25 Mcg Tablet, 25 MCG PO DAILY, (Reported) Lisinopril 40 Mg Tablet, 40 MG PO DAILY, (Reported) Past Vuldvzx-Ponlvb-Rlelef Hx Patient Social History Alcohol Use: Denies Use Recreational Drug Use: No Smoking Status: Never a Smoker 2nd Hand Smoke Exposure: No Recent Foreign Travel: No Contact w/Someone Who Travel: No Recent Infectious Disease Expo: No Recent Hopitalizations: No Physical Abuse: No Sexual Abuse: No Immunizations Up To Date Tetanus Booster (TDap): Unknown Date of Pneumonia Vaccine: May 15, 2013 Date of Influenza Vaccine: Feb 02, 2013 Seasonal Allergies Seasonal Allergies: No Surgeries History of Surgeries: Yes Surgeries: Abdominal Respiratory History of Respiratory Disorde: No Cardiovascular History of Cardiac Disorders: Yes (pacemaker) Cardiac Disorders: Hypertension, Irregular Heartbeat Neurological History of Neurological Disord: No Reproductive System Hx Reproductive Disorders: Yes (BARTHOLIN CYSTS X 2 WITH SURGERY FOR BOTH) Genitourinary History of Genitourinary Disor: Yes Genitourinary Disorders: Bladder Infection, Renal Failure Gastrointestinal History of Gastrointestinal Di: No Musculoskeletal History of Musculoskeletal Dis: No Endocrine History of Endocrine Disorders: Yes Endocrine Disorders: Hypothyroidsim HEENT History of HEENT Disorders: Yes HEENT Disorders: Cataract Hearing Impairment: Denies Cancer History of Cancer: Yes Cancer: Bladder Did You Recieve Any Treatments: Yes Type of Tx Receive: Surgical Intervention Psychosocial History of Psychiatric Problem: Yes Behavioral Health Disorders: Sleep Difficulties, Anxiety Suicide Risk Score: 0 Integumentary History of Skin or Integumenta: Yes (PEREZ FROM TAKING COUMADIN) Blood Transfusions History of Blood Disorders: No Adverse Reaction to a Blood Tr: No Reviewed Nursing Assessment Reviewed/Agree w Nursing PMH: Yes Family Medical History Significant Family History: Heart Disease, Hypertension Family Medial History: Patient reports no known family medical history. Review of Systems Time Seen by Provider: 08:38 Constitutional: Sweats, Weakness, Malaise, No: Fever, Chills, Other Respiratory: Shortness of breath, SOB with excertion, No: Cough, Dry Cardiovascular: Edema, Lt Headedness, No: Chest Pain, Palpitations, Paroxysmal Noc. Dyspnea Gastrointestinal: No: Nausea, Vomiting, Abdominal Pain, Diarrhea, Constipation , Melena, Hematochezia, Other Genitourinary: No Dysuria, No Frequency, No Incontinence, No Hematuria, No Retention, No Other Neurological: Weakness, Confusion, No: Seizures Exam Exam Vital Signs Date Time Temp Pulse Resp B/P (MAP) Pulse Ox O2 Delivery O2 Flow Rate FiO2 02/16/17 04:00 97.5 60 16 122/60 93 Nasal Cannula 3.00 3.00 02/16/17 00:00 98.5 63 18 118/58 93 Nasal Cannula 3.00 02/15/17 21:00 Nasal Cannula 2.00 02/15/17 19:17 99.3 68 20 130/54 94 Nasal Cannula 2.50 02/15/17 16:00 98.6 60 20 144/62 95 Nasal Cannula 2.50 02/15/17 12:00 97.8 65 20 130/50 92 Nasal Cannula 2.50 02/15/17 08:46 98.4 83 22 180/88 91 Nasal Cannula 2.00 02/15/17 08:28 Nasal Cannula 2.00 General Appearance: No Apparent Distress, WD/WN, Chronically ill HEENT: PERRL/EOMI, Normal ENT Inspection, Pharynx Normal Neck: Carotid Bruit Respiratory: Chest Non Tender, Lungs Clear, Normal Breath Sounds, No Accessory Muscle Use, No Respiratory Distress Cardiovascular: Regular Rate, Rhythm, No Murmur Capillary Refill: Less Than 3 Seconds Gastrointestinal: soft, no organomegaly, distended (appears a little larger than yesterday), tenderness (with deep palpation) Extremity: Non Tender, No Calf Tenderness, No Pedal Edema Neurologic/Psychiatric: Alert, Oriented x3, Normal Mood/Affect Skin: Normal Color, Warm/Dry Results Lab Laboratory Tests 02/15/17 05:46 02/16/17 05:10 Assessment/Plan Assessment/Plan Severe sepsis - improving Hypoxia - possibly related to atelectasis vs pulmonary edema-- no hx of tobacco use -Pt is on lasix will check BNP -Check Sp02 on RA and do oxygen desaturation testing -IS -Oxygen - titrate to D/C if possible -If pt continues to require oxygen will obtain CT of chest. GIB -monitor 254 Clinical Quality Measures DVT/VTE Risk/Contraindication: Risk Factor Score Per Nursin RFS Level Per Nursing on Admit: 3=High BETZY IRBY DO Feb 16, 2017 08:27
[2017-02-16] MEDS: FUROSEMIDE 40 MG (LASIX) TAB PO SCH (08:33)
[2017-02-16] MEDS: CARVEDILOL 12.5 MG (COREG) TABLET PO SCH (08:33)
[2017-02-16] MEDS: LEVOTHYROXINE 25 MCG (LEVOTHROID) TAB PO SCH (08:33)
[2017-02-16] MEDS: ASPIRIN 81 MG CHEW (CHILDREN'S ASA) PO SCH (08:34)
[2017-02-16] MEDS: DILTIAZEM 180 MG (CARDIZEM CD) CAP PO SCH (08:34)
[2017-02-16] MEDS: lisINopril 20 MG (ZESTRIL) TAB PO SCH (08:34)
[2017-02-16] MEDS: hydrALAZINE (APRESOLINE) 25 MG TAB PO SCH ×2 (08:35→20:42)
[2017-02-16] MEDS: VITAMIN D3 1,000 UNITS (CHOLECALCIFEROL) TABLET PO SCH (08:35)
--- NOTE | 2017-02-16 08:37 | Progress Note (SOAP) ---
Subjective Date Seen by Provider: Feb 16, 2017 Time Seen by Provider: 08:45 Subjective/Events-last exam PT REPOTS THAT SHE IS FEELING BETTER TODAY. SHE STATES THAT SHE HAS PAIN IN HER RIGHT ARM. SHE DENIES CHEST PAIN, BUT DOES HAVE QUITE A BIT OF FATIGUE COMPARED TO HER USUAL STATE OF HEALTH Review of Systems General: Fatigue Pulmonary: Dyspnea, Cough Cardiovascular: No: Chest Pain Gastrointestinal: No: Nausea, Abdominal Pain Musculoskeletal: arm pain (RIGHT ARM) Neurological: Weakness Objective Exam Vital Signs Date Time Temp Pulse Resp B/P (MAP) Pulse Ox O2 Delivery O2 Flow Rate FiO2 02/16/17 08:14 97.3 63 20 110/58 90 Room Air 02/16/17 04:00 97.5 60 16 122/60 93 Nasal Cannula 3.00 3.00 02/16/17 00:00 98.5 63 18 118/58 93 Nasal Cannula 3.00 02/15/17 21:00 Nasal Cannula 2.00 02/15/17 19:17 99.3 68 20 130/54 94 Nasal Cannula 2.50 02/15/17 16:00 98.6 60 20 144/62 95 Nasal Cannula 2.50 02/15/17 12:00 97.8 65 20 130/50 92 Nasal Cannula 2.50 02/15/17 08:46 98.4 83 22 180/88 91 Nasal Cannula 2.00 Capillary Refill : Less Than 3 SecondsLess Than 3 Seconds General Appearance: No Apparent Distress, WD/WN HEENT: PERRL/EOMI, Pharynx Normal Neck: Full Range of Motion, Supple Respiratory: Chest Non Tender, Normal Breath Sounds Cardiovascular: Regular Rate, Rhythm, Systolic Murmur Gastrointestinal: normal bowel sounds, non tender, soft, no organomegaly, no pulsatile mass Extremity: Pedal Edema Neurologic/Psychiatric: Alert, Oriented x3, Normal Mood/Affect Skin: Warm/Dry Results Lab Laboratory Tests 02/16/17 05:10: White Blood Count 13.8H, Red Blood Count 3.05L, Hemoglobin 8.7L, Hematocrit 28L , Mean Corpuscular Volume 91, Mean Corpuscular Hemoglobin 29, Mean Corpuscular Hemoglobin Concent 31L, Red Cell Distribution Width 13.9, Platelet Count 133, Mean Platelet Volume 10.7H, Neutrophils (%) (Auto) 85H, Lymphocytes (%) (Auto) 6L, Monocytes (%) (Auto) 8, Eosinophils (%) (Auto) 1, Basophils (%) (Auto) 0, Neutrophils # (Auto) 11.7H, Lymphocytes # (Auto) 0.9L, Monocytes # (Auto) 1.1H, Eosinophils # (Auto) 0.1, Basophils # (Auto) 0.0, Sodium Level 134L, Potassium Level 4.2, Chloride Level 112H, Carbon Dioxide Level 16L, Anion Gap 6, Blood Urea Nitrogen 23H, Creatinine 1.48H, Estimat Glomerular Filtration Rate 33, BUN/ Creatinine Ratio 16, Glucose Level 100, Calcium Level 7.8L, Magnesium Level 1.9 , Total Bilirubin 0.5, Aspartate Amino Transf (AST/SGOT) 15, Alanine Aminotransferase (ALT/SGPT) 9, Alkaline Phosphatase 41, Total Protein 4.8L, Albumin 2.6L Microbiology 02/13/17 Blood Culture - Preliminary, Resulted Staph, Coag Neg (Sales Audit Clerk) 02/14/17 C. difficile GDH Antigen & Toxins - Final, Complete 02/13/17 Urine Culture - Final, Complete NO GROWTH Assessment/Plan Assessment/Plan Assess & Plan/Chief Complaint SEVERE SEPSIS - DUE TO COAGNEGATIVE STAPH - VANCOMYCIN IV TO COMPLETE 7 DAYS OF IV ANTIBIOTICS. FALL ATHOME WITH RIGHT ULNAR FRACTURE - CONSULT TO DR. TAYLOR FOR CASTING. CHRONIC RENAL FAILURE - ON ADMISSION CREATININE ELEVATED, RENALLY ADJUST ALL MEDICATIONS, MONITOR CREATININE - PUSH FLUIDS. LEUKOCYTOSIS - IMPROVED. HYPERTENSION - CHRONIC AND USUALLY DIFFICULT TO CONTROL - RESUME HOME MEDICATIONS, APPRECIATE CARDIOLOGY CONSULTATION. HYPOXEMIA - ON OXYGEN - CONTINUE WITH WEAKING OF OXYGEN ABLE. Clinical Quality Measures DVT/VTE Risk/Contraindication: Risk Factor Score Per Nursin RFS Level Per Nursing on Admit: 3=High RAH ANGELES MD Feb 16, 2017 08:37
[2017-02-16] MEDS ORDERED: lisINopril 20 MG (ZESTRIL) TAB PO SCH (09:00)
[2017-02-16] MEDS ORDERED: FUROSEMIDE 40 MG (LASIX) TAB PO SCH (09:00)
[2017-02-16] MEDS ORDERED: TROUGH ORDER-PHARMACY XX NR (10:00)
[2017-02-16] MEDS: VANCOMYCIN INJECTION 1,000 MG in NS (IVPB) 250 ML IV SCH ×2 (10:10→15:01)
--- NOTE | 2017-02-16 11:25 | Diagnostic Imaging Report ---
EXAMINATION: Bilateral lower extremity duplex venous ultrasound. TECHNIQUE: DVT protocol. Multiple sonographic images with color Doppler and waveform interrogation were performed of the lower extremity veins, bilaterally, with compression and augmentation maneuvers. INDICATION: Bilateral leg suspected venous thrombosis. FINDINGS: The lower extremity veins from the common femoral veins to below the knee veins were examined with normal color-flow, compressibility and normal waveform demonstrated. The great saphenous vein bilaterally is patent. IMPRESSION: No evidence of DVT in either lower extremity. Dictated by: Dictated on workstation # [id number]
[2017-02-16] MEDS ORDERED: FLAX1000 PO (11:31)
[2017-02-16] MEDS ORDERED: HYDR-3820 PO (11:31)
[2017-02-16] MEDS ORDERED: ALPR0.5T7 PO (11:31)
[2017-02-16] MEDS ORDERED: CITA40TA11 PO (11:31)
[2017-02-16] MEDS ORDERED: LISI40TA PO (11:31)
[2017-02-16] MEDS ORDERED: DILT360C30 PO (11:31)
[2017-02-16] MEDS ORDERED: LEVO25TA5 PO (11:31)
[2017-02-16] MEDS ORDERED: ASPI-983 PO (11:31)
[2017-02-16] MEDS ORDERED: ERGO50006 PO (11:42)
[2017-02-16] MEDS ORDERED: DOCU-143 PO (11:42)
[2017-02-16] MEDS ORDERED: FURO40TA4 PO (11:42)
[2017-02-16] MEDS ORDERED: CHOL20002 PO (11:42)
[2017-02-16] MEDS ORDERED: CHOL10003 PO (11:42)
[2017-02-16] MEDS ORDERED: BRIM5DRO OS (11:42)
[2017-02-16] MEDS ORDERED: CHOL10007 PO (11:45)
--- NOTE | 2017-02-16 11:57 | Physical Therapy Daily Note ---
PT Daily Note-Current Subjective Pt laying Supine in bed upon arrival. Pt agrees to walk a little for PT. Pain Location: No Pain Reported Mental Status Patient Orientation: Person, Place, Situation Attachments: Oxygen (4L) Transfers Functional Emanuel Measure 0=Not Assessed/NA 4=Minimal Assistance 1=Total Assistance 5=Supervision or Setup 2=Maximal Assistance 6=Modified Emanuel 3=Moderate Assistance 7=Complete IndependenceIRFPAI Quality Coding Scale 6 Independent with activity with or without an assistive device 5 Patient requires set up or clean up by helper. Patient completes activity by themselves 4 Supervision or touching assist (CGA). [place] provide cues , steadying assist 3 The helper provides less than half the effort to complete the activity 2 The helper provides more than half the effort to complete the activity 1 Dependent. The helper does all the effort to complete an activity 7 Patient refused to complete or attempt activity 9 The patient did not perform the activity before the current illness or injury 88 Not attempted due to Medical conditions or safety concerns Scootin Rollin Supine to/from Sit: 5 Sit to/from Stand: 4 Weight Bearing Right Lower Extremity: Right Full Weight Bearing Left Lower Extremity: Left Full Weight Bearing Gait Training Distance (FIM): 1=up to 49 ft Distance: 30' Gait Level of Assist: 5 Gait Persons Needed: 1 Gait Assistive Device: FWW Pt walks with slow but steady sarah, no LOB. Pt fatigues easy. Treatments Pt transfers from Supine to EOB at SBA then EOB to Standing at CGA-Min A. Pt ambulates to restroom then rests at EOB before walking to hallway. Pt returns to rest in recliner at end of tx with all needs met. RT is present for tx. Assessment Current Status: Good Progress Pt is continuing to get stronger and more independent with activities/tasks. 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 Nursing Home Goals PT Nursing Home Goals Time Frame: Feb 20, 2017 Gait distance (FIM): 3=150 ft Distance: 150 Gait Assistive Device: Cane Single Point # of Steps: 3 Stairs Level Of Assist: 4 PT Plan Problem List Problem List: Activity Tolerance, Functional Strength, Safety, Gait Treatment/Plan Treatment Plan: Continue Plan of Care Treatment Plan: Bed Mobility, Education, Functional Activity [place], Functional Strength, Gait, Safety, Therapeutic Exercise, Transfers Treatment Duration: Feb 20, 2017 Frequency: 11 times per week Estimated Hrs Per Day: .25 hour per day Patient and/or Family Agrees t: Yes Safety Risks/Education Patient Education: Gait Training, Transfer Techniques, Correct Positioning, Safety Issues Teaching Recipient: Patient Teaching Methods: Discussion Response to Teaching: Verbalize Understanding Time/GCodes Time In: 1115 Time Out: 1130 Total Billed Treatment Time: 15 Total Billed Treatment visit, GT (15m) AMADO CARLSON PTA Feb 16, 2017 11:57
[2017-02-16 12:57] VITALS: BP 120/74
--- NOTE | 2017-02-16 13:08 | Diagnostic Imaging Report ---
PROCEDURE: CT chest without contrast. TECHNIQUE: Multiple contiguous axial images were obtained through the chest without the use of intravenous contrast. INDICATION: Shortness of breath. FINDINGS: There are bilateral [id number]-fy-[id number] pleural effusions and lower lobe consolidation probably atelectasis seen bilaterally. There is nonspecific perihilar groundglass opacities. The heart size is enlarged with prominent coronary artery calcifications. There are pacemaker leads seen. The thoracic aorta is normal in caliber. No mediastinal mass or significantly enlarged lymph node is seen. No axillary lymphadenopathy is noted. Cholecystectomy clips are seen in the upper abdomen. There is suggestion of a compression fracture of T11 and T12 levels, which appear without significant change from 01/16/2016 exam. IMPRESSION: Bilateral effusions and perihilar groundglass opacities with cardiomegaly are suggestive of mild interstitial pulmonary edema from CHF. Dictated by: Dictated on workstation # [id number]
--- NOTE | 2017-02-16 13:19 | Cardiology Progress Note ---
Cardiology SOAP Progress Note Subjective: Shoulder pain is better. Still complaining of right wrist pain Objective: I&O/Vital Signs Vital Sign - Last 12Hours 02/16/17 02/16/17 02/16/17 02/16/17 04:00 08:14 08:43 08:50 Temp 97.5 97.3 Pulse 60 63 63 Resp 16 20 B/P (MAP) 122/60 110/58 Pulse Ox 93 90 82 O2 Delivery Nasal Cannula Room Air Nasal Cannula Room Air O2 Flow Rate 3.00 3.00 3.00 02/16/17 02/16/17 02/16/17 02/16/17 08:52 08:56 08:58 12:57 Temp 98.0 Pulse 60 Resp 20 B/P (MAP) 120/74 Pulse Ox 96 90 90 96 O2 Delivery Nasal Cannula Nasal Cannula Nasal Cannula O2 Flow Rate 3.00 3.00 3.00 4.00 Weight (Pounds): 173 Weight (Ounces): 6.0 Weight (Calculated Kilograms): [id number] Constitutional: No appears stated age, No AAO x 3, No apparent distress, No PERRL, No well-developed, No well-nourished, No other Respiratory: No accessory muscle use, No respiratory distress, No chest tender , No chest expansion is symmetric, No chest is bilaterally symmetric, No lungs clear to percussion, No lungs clear to auscultation, No crackles, No rhonchi, No rales, No stridor, No wheezing, No pleural rub, No other Cardiovascular: No regular rate-rhythm, No irregularly irregular, No extra beats, No parasternal heave is noted, No JVD, No edema, No bradycardia, No tachycardia, No point of maximal impulse, No cardiac thrills are palpable, No S1 and S2, No gallop/S3, No gallop/S4, No diastolic murmur, No systolic murmur, No friction rub, No click, No other Gastrointestional: No tender, No soft, No round, No distended, No pulsatile mass, No organomegaly, No guarding, No rebound, No tenderness, No hernia, No mass, No audible bowel sounds, No abnormal bowel sounds, No abdominal bruits, No spleenomegaly, No other Extremities: No normal range of motion, No non-tender, No normal inspection, No pedal edema, No calf tenderness, No normal capillary refill, No pelvis stable , No calf tenderness, No inflammation, No pedal edema, No slow capillary refill , No swelling, No other, No abrasion, No clubbing, No cyanosis, No ecchymosis, No laceration, No no lower extremity edema bilateral, No significant edema, No tenderness, No wound Neurologic/Psychiatric: No surgical endoscopist II-XII nml as tested, No no motor/sensory deficits, No alert, No normal mood/affect, No oriented x 3, No abnormal cerebellar tests, No abnormal surgical endoscopist II-XII, No abnormal gait, No aphasia, No EOM palsy, No facial droop, No motor weakness, No sensory deficit, No depressed affect, No disoriented x 3, No other, No grossly intact, No power is 5/5 both on sides Skin: No normal color, No warm/dry, No cyanosis, No cool, No diaphoresis, No damp, No ecchymosis, No jaundice, No mottled, No pallor, No rash, No tattoos/ piercings, No ulcerations, No rash on exposed areas, No ulcerations on exposed areas, No other Results/Procedures: Labs Laboratory Tests 02/16/17 05:10: White Blood Count 13.8H, Red Blood Count 3.05L, Hemoglobin 8.7L, Hematocrit 28L , Mean Corpuscular Volume 91, Mean Corpuscular Hemoglobin 29, Mean Corpuscular Hemoglobin Concent 31L, Red Cell Distribution Width 13.9, Platelet Count 133, Mean Platelet Volume 10.7H, Neutrophils (%) (Auto) 85H, Lymphocytes (%) (Auto) 6L, Monocytes (%) (Auto) 8, Eosinophils (%) (Auto) 1, Basophils (%) (Auto) 0, Neutrophils # (Auto) 11.7H, Lymphocytes # (Auto) 0.9L, Monocytes # (Auto) 1.1H, Eosinophils # (Auto) 0.1, Basophils # (Auto) 0.0, Sodium Level 134L, Potassium Level 4.2, Chloride Level 112H, Carbon Dioxide Level 16L, Anion Gap 6, Blood Urea Nitrogen 23H, Creatinine 1.48H, Estimat Glomerular Filtration Rate 33, BUN/ Creatinine Ratio 16, Glucose Level 100, Calcium Level 7.8L, Magnesium Level 1.9 , Total Bilirubin 0.5, Aspartate Amino Transf (AST/SGOT) 15, Alanine Aminotransferase (ALT/SGPT) 9, Alkaline Phosphatase 41, B-Type Natriuretic Peptide 819.6H, Total Protein 4.8L, Albumin 2.6L 02/16/17 09:32: D-Dimer 2.27H, Vancomycin Level Trough 20.4H Microbiology 02/13/17 Blood Culture - Preliminary, Resulted Staph, Coag Neg (Credit Administration Manager) 02/14/17 C. difficile GDH Antigen & Toxins - Final, Complete 02/13/17 Urine Culture - Final, Complete NO GROWTH A/P: Assessment/Dx: Abdominal pain, diarrhea, dehydration, Near syncope, History of atrial fibrillation, Permanent pacemaker. history of fall, Hypertension Plan: Likely abdominal etiology for abdominal pain, diarrhea and near syncope. Given IV fluids. No acute cardiac issues. Remote history of atrial fibrillation. She has a permanent pacemaker; device interrogation reveals no atrial fibrillation episodes in the last 3-1/2 years. I had discontinued both Coumadin and amiodarone. She is only on full aspirin and rate controlling agent. blood pressure management. Much better controlled. Shoulder pain, right wrist pain. Defer to primary service. Thank you for your consultation. Please call me if you have any questions. Eloy German MD, FACP, FACC, FSCAI, FHRS, CCDS Interventional Cardiology Cardiac Electrophysiology Vascular Medicine and Endovascular Interventions Phyllis GERMAN MD Feb 16, 2017 13:19
--- NOTE | 2017-02-16 13:53 | Progress Note ---
Subjective Date Seen by Provider: Feb 16, 2017 Time Seen by Provider: 13:39 Subjective/Events-last exam Pt seen and examined, denies any abominal pain today. Tolerating soft diet. Pt has not seen anymore bloody or maroone colored stools. Review of Systems General: No Chills, No Night Sweats HEENT: No Head Aches, No Visual Changes Pulmonary: No Dyspnea, No Cough Cardiovascular: No: Chest Pain Gastrointestinal: No: Nausea, Vomiting, Abdominal Pain Musculoskeletal: arm pain (right wrist) Objective Exam Vital Signs Date Time Temp Pulse Resp B/P (MAP) Pulse Ox O2 Delivery O2 Flow Rate FiO2 02/16/17 12:57 98.0 60 20 120/74 96 Nasal Cannula 4.00 02/16/17 08:58 90 3.00 02/16/17 08:56 90 Nasal Cannula 3.00 02/16/17 08:52 96 Nasal Cannula 3.00 02/16/17 08:50 63 82 Room Air 02/16/17 08:43 Nasal Cannula 3.00 02/16/17 08:14 97.3 63 20 110/58 90 Room Air 02/16/17 04:00 97.5 60 16 122/60 93 Nasal Cannula 3.00 3.00 02/16/17 00:00 98.5 63 18 118/58 93 Nasal Cannula 3.00 02/15/17 21:00 Nasal Cannula 2.00 02/15/17 19:17 99.3 68 20 130/54 94 Nasal Cannula 2.50 02/15/17 16:00 98.6 60 20 144/62 95 Nasal Cannula 2.50 Capillary Refill : Less Than 3 SecondsLess Than 3 Seconds General Appearance: No Apparent Distress, WD/WN HEENT: PERRL/EOMI, Pharynx Normal Neck: Carotid Bruit Respiratory: Chest Non Tender, Lungs Clear, Normal Breath Sounds, No Accessory Muscle Use, No Respiratory Distress Cardiovascular: Regular Rate, Rhythm, No Murmur Gastrointestinal: non tender, soft, no organomegaly, distended (appears to be improved compared to Thursday) Extremity: Non Tender, No Calf Tenderness Neurologic/Psychiatric: Alert, Oriented x3, Normal Mood/Affect Skin: Normal Color, Warm/Dry, Ecchymosis (both arms) Results Lab Laboratory Tests 02/16/17 05:10: White Blood Count 13.8H, Red Blood Count 3.05L, Hemoglobin 8.7L, Hematocrit 28L , Mean Corpuscular Volume 91, Mean Corpuscular Hemoglobin 29, Mean Corpuscular Hemoglobin Concent 31L, Red Cell Distribution Width 13.9, Platelet Count 133, Mean Platelet Volume 10.7H, Neutrophils (%) (Auto) 85H, Lymphocytes (%) (Auto) 6L, Monocytes (%) (Auto) 8, Eosinophils (%) (Auto) 1, Basophils (%) (Auto) 0, Neutrophils # (Auto) 11.7H, Lymphocytes # (Auto) 0.9L, Monocytes # (Auto) 1.1H, Eosinophils # (Auto) 0.1, Basophils # (Auto) 0.0, Sodium Level 134L, Potassium Level 4.2, Chloride Level 112H, Carbon Dioxide Level 16L, Anion Gap 6, Blood Urea Nitrogen 23H, Creatinine 1.48H, Estimat Glomerular Filtration Rate 33, BUN/ Creatinine Ratio 16, Glucose Level 100, Calcium Level 7.8L, Magnesium Level 1.9 , Total Bilirubin 0.5, Aspartate Amino Transf (AST/SGOT) 15, Alanine Aminotransferase (ALT/SGPT) 9, Alkaline Phosphatase 41, B-Type Natriuretic Peptide 819.6H, Total Protein 4.8L, Albumin 2.6L 02/16/17 09:32: D-Dimer 2.27H, Vancomycin Level Trough 20.4H Microbiology 02/13/17 Blood Culture - Preliminary, Resulted Staph, Coag Neg (Pigskin Trimmer) 02/14/17 C. difficile GDH Antigen & Toxins - Final, Complete 02/13/17 Urine Culture - Final, Complete NO GROWTH Assessment/Plan Assessment/Plan Assessment/Plan 1. Abdominal Pain - basically resolved today. AAS from yesterday read by radiologist as mildly dilated intestine, no acute process. 2. Leukocytosis - WBC down to 13.6 today 02/16. 3. Elevated lactic acid - normal 4. GI bleed - unknown source. 5. Hypotension - resolved GI Bleed unknown source; possibilities include intestinal ischemia and infection. C. diff was negative. Pt still doesn't want surgery and at this point does not appear to need any. Will sign off and reconsult if needed. Thank you for this consult. Clinical Quality Measures DVT/VTE Risk/Contraindication: Risk Factor Score Per Nursin RFS Level Per Nursing on Admit: 3=High RAHEEL OTERO DO Feb 16, 2017 13:53
--- NOTE | 2017-02-16 13:53 | Occupational Therapy Eval ---
OT Evaluation-General/PLF Medical Diagnosis Admission Date Feb 13, 2017 at 17:00 Medical Diagnosis: SEPSIS; ACUTE RENAL FAILURE, UTI Onset Date: Feb 13, 2017 Therapy Diagnosis Therapy Diagnosis: decr self care, decr funct use R UE, edema R UE, decr funct mobility Height/Weight Height (Feet): 5 Height (Inches): 5.00 Weight (Pounds): 173 Weight (Ounces): 6.0 Precautions Precautions/Isolations: Fall Prevention, Standard Precautions, Pressure Ulcer Safety Interventions: Bed Exit Alarm Referral Physician: Jena Blas MD Referral Reason: Evaluation/Treatment Medical History Pertinent Medical History: HTN, Hypothroidism, Renal Insufficiency Additional Medical History Irregular heartbeat, sleep difficulties, anxiety Current History Pt had abdominal pain and dizziness at home, fell and broke R distal ulna Reviewed History: Yes Social History Home: Single Level Current Living Status: Alone ADL-Prior Level of Function ADL PLOF Comments Pt reported that she has been independent with all of her basic self care needs prior to fall. She does her own cooking and laundry and has help every 2 weeks for cleaning and changing sheets. She is retired from [employer] and still drives. Occupation: retired Drive Self: Yes OT Current Status Subjective Pt seen in room, up in recliner, agreeable to OT. Pt rated pain 0/10 in R UE. Appearance Alert, cooperative. One day off on date Mental Status/Objective Attachments: IV Current Hand Dominance: Right Upper Extremity ROM Grossly WFL bilat except R distal UE not tested due to splint Upper Extremity Strength L UE grossly 4/5 throughout. R UE not tested due to splint Edema: Edema R hand. Splint loosened slightly but unable to adjust thru thumb web Dr. Celis has been consulted for management R wrist fx ADL-Treatment ADL-Current Pt reported that she has been getting up to go to the bathroom with assistance. She has limited functional use R UE at this time due to edema and splint Functional [place] Measure 0=Not Assessed/NA 4=Minimal Assistance 1=Total Assistance 5=Supervision or Setup 2=Maximal Assistance 6=Modified [place] 3=Moderate Assistance 7=Complete IndependenceIRFPAI Quality Coding Scale 6 Independent with activity with or without an assistive device 5 Patient requires set up or clean up by helper. Patient completes activity by themselves 4 Supervision or touching assist (CGA). [place] provide cues , steadying assist 3 The helper provides less than half the effort to complete the activity 2 The helper provides more than half the effort to complete the activity 1 Dependent. The helper does all the effort to complete an activity 7 Patient refused to complete or attempt activity 9 The patient did not perform the activity before the current illness or injury 88 Not attempted due to Medical conditions or safety concerns Other Treatments Pt educ on edema management. R UE elevated on pillow to level of heart. Pt educ to make a fist x 10 reps and do this periodically to help mobilize edema Education OT Patient Education: Purpose of tx/functional activities, Rehab process Teaching Recipient: Patient, Family (son) Teaching Methods: Discussion Response to Teaching: Verbalize Understanding OT Shelter Goals Shelter Goals Time Frame: Feb 23, 2017 Eating (FIM): 6 Grooming(FIM): 6 Bathing(FIM): 5 Upper Body Dressing(FIM): 6 Lower Body Dressing(FIM): 6 Toileting(FIM): 6 Toilet/Commode Transfer(FIM): 6 Shower Transfer(FIM): 5 Additional Goals: 1-Demonstrate ADL Tasks, 2-Verbalize Understanding, 3- ImproveStrength/[place] 1=Demonstrate adherence to instructed precautions during ADL tasks. 2=Patient will verbalize/demonstrate understanding of assistive devices/ modifications for ADL. 3=Patient will improve strength/tolerance for activity to enable patient to perform ADL's. OT Education/Plan Problem List/Assessment Assessment: Decreased UE Strength, Edema, Impaired Coordination, Impaired Self- Care Skills, Restricted Funct UE ROM Pt would benefit from skilled OT to increase her independence in basic self care to allow her to safely return to her home and to decrease caregiver burden Discharge Recommendations Plan/Recommendations: Continue POC Target Placement home Treatment Plan/Plan of Care Treatment,Training & Education: Yes Patient would benefit from OT for education, treatment and training to promote independence in ADL's, mobility, safety and/or upper extremity function for ADL' s. Plan of Care: ADL Retraining, Functional Mobility, UE Funct Exercise/Act, UE Neuromus Re-Ed/Coord, OTHER (edema management) Treatment Duration: Feb 23, 2017 Frequency: 5 times per week Estimated Hrs Per Day: .5 hour per day Agreement: Yes Rehab Potential: Good Time/GCodes Start Time: 13:10 Stop Time: 13:25 Total Time Billed (hr/min): 15 Billed Treatment Time visit, evaluation moderate intensity ALEXIS RIDER OT Feb 16, 2017 13:53
[2017-02-16] MEDS ORDERED: PATIENT MAY USE OWN MED,SINGLE MED PO ONE (14:15)
--- NOTE | 2017-02-16 15:32 | Physical Therapy Daily Note ---
PT Daily Note-Current Subjective Pt sitting in recliner upon arrival. Pt agrees to PT for a walk. Pain Location: No Pain Reported Mental Status Patient Orientation: Person, Place, Situation Attachments: Oxygen (4L) Transfers Functional [place] Measure 0=Not Assessed/NA 4=Minimal Assistance 1=Total Assistance 5=Supervision or Setup 2=Maximal Assistance 6=Modified [place] 3=Moderate Assistance 7=Complete IndependenceIRFPAI Quality Coding Scale 6 Independent with activity with or without an assistive device 5 Patient requires set up or clean up by helper. Patient completes activity by themselves 4 Supervision or touching assist (CGA). [place] provide cues , steadying assist 3 The helper provides less than half the effort to complete the activity 2 The helper provides more than half the effort to complete the activity 1 Dependent. The helper does all the effort to complete an activity 7 Patient refused to complete or attempt activity 9 The patient did not perform the activity before the current illness or injury 88 Not attempted due to Medical conditions or safety concerns Scootin Sit to/from Stand: 5 Weight Bearing Right Lower Extremity: Right Full Weight Bearing Left Lower Extremity: Left Full Weight Bearing Gait Training Distance (FIM): 0=718-71 ft Distance: 60' Gait Level of Assist: 5 Gait Persons Needed: 1 Gait Assistive Device: FWW Pt's gait is slow but steady, no LOB. Pt fatigues easy. Treatments Pt transfers from recliner to standing using FWW at SBA. Pt returns to recliner at end of walk to rest with all needs met. Assessment Current Status: Good Progress Pt walked farther than this morning's tx and is motivated to get better so pt can get home. PT Skilled Nursing Goals Skilled Nursing Goals PT Impersonator Character Goals Time Frame: Feb 20, 2017 Gait distance (FIM): 3=150 ft Distance: 150 Gait Assistive Device: Cane Single Point # of Steps: 3 Stairs Level Of Assist: 4 PT Plan Problem List Problem List: Activity Tolerance, Functional Strength, Gait Treatment/Plan Treatment Plan: Continue Plan of Care Treatment Plan: Bed Mobility, Education, Functional Activity [place], Functional Strength, Gait, Safety, Therapeutic Exercise, Transfers Treatment Duration: Feb 20, 2017 Frequency: 11 times per week Estimated Hrs Per Day: .25 hour per day Patient and/or Family Agrees t: Yes Safety Risks/Education Patient Education: Gait Training, Transfer Techniques, Correct Positioning, Safety Issues Teaching Recipient: Patient Teaching Methods: Discussion Response to Teaching: Verbalize Understanding Time/GCodes Time In: 1445 Time Out: 1500 Total Billed Treatment Time: 15 Total Billed Treatment visit, GT (15m) AMADO CARLSON PTA Feb 16, 2017 15:32
[2017-02-16 16:00] VITALS: BP 121/83
[2017-02-16] MEDS: CARVEDILOL 6.25 MG (COREG) TAB PO SCH (20:41)
[2017-02-16] MEDS: ALPRAZolam 0.5 MG (XANAX) TAB PO PRN (22:51)
[2017-02-16] MEDS ORDERED: VANCOMYCIN INJECTION 1,000 MG in NS (IVPB) 250 ML IV SCH (23:00)
[2017-02-17 00:15] VITALS: BP 123/79
[2017-02-17] MEDS: LEVOTHYROXINE 25 MCG (LEVOTHROID) TAB PO SCH (05:31)
[2017-02-17 06:05] LABS: BASOPHILS % (AUTO) 0 % (0-10); EOSINOPHILS # (AUTO) 0.1 10^3/uL (0.0-0.3); EOSINOPHILS % (AUTO) 2 % (0-10); LYMPHOCYTES # (AUTO) 1.1 X 10^3 (1.0-4.0); LYMPHOCYTES % (AUTO) 12 % (12-44); MEAN CORPUSCULAR HEMOGLOBIN 29 PG (25-34); MEAN CORPUSCULAR HGB CONC 32 G/DL (32-36); MEAN CORPUSCULAR VOLUME 91 FL (80-99); MEAN PLATELET VOLUME 10.6 FL (7.4-10.4); MONOCYTES # (AUTO) 0.8 X 10^3 (0.0-1.0); MONOCYTES % (AUTO) 10 % (0-12); NEUTROPHILS # (AUTO) 6.7 X 10^3 (1.8-7.8); NEUTROPHILS % (AUTO) 77 % (42-75); PLATELET COUNT 184 10^3/uL (130-400); RED BLOOD COUNT 3.29 10^6/uL (4.35-5.85); RED CELL DISTRIBUTION WIDTH 13.9 % (10.0-14.5); WHITE BLOOD COUNT 8.7 10^3/uL (4.3-11.0)
[2017-02-17 06:39] LABS: CALCIUM 8.6 MG/DL (8.5-10.1); CREATININE SERUM 1.72 MG/DL (0.60-1.30); MAGNESIUM 1.8 MG/DL (1.8-2.4); POTASSIUM 4.1 MMOL/L (3.6-5.0)
[2017-02-17 08:30] VITALS: BP 150/60
[2017-02-17] MEDS: ASPIRIN 81 MG CHEW (CHILDREN'S ASA) PO SCH (09:26)
[2017-02-17] MEDS: lisINopril 20 MG (ZESTRIL) TAB PO SCH (09:27)
[2017-02-17] MEDS: VITAMIN D3 1,000 UNITS (CHOLECALCIFEROL) TABLET PO SCH (09:27)
[2017-02-17] MEDS: FUROSEMIDE 40 MG (LASIX) TAB PO SCH (09:27)
[2017-02-17] MEDS: CARVEDILOL 6.25 MG (COREG) TAB PO SCH ×2 (09:27→21:24)
[2017-02-17] MEDS: DILTIAZEM 180 MG (CARDIZEM CD) CAP PO SCH (09:27)
[2017-02-17] MEDS: hydrALAZINE (APRESOLINE) 25 MG TAB PO SCH ×2 (09:27→21:24)
--- NOTE | 2017-02-17 09:27 | Progress Note (SOAP) ---
Subjective Date Seen by Provider: Feb 17, 2017 Time Seen by Provider: 09:25 Subjective/Events-last exam PT CONTINUES TO FEEL BETTER TODAY - SHE STAES THAT HER ARM IS STILL UNCOMFORTABLE, BUT IT IS BETTER. SHE IS FRUSTRATED BY THE PICC LINE PLACEMENT - SHE HAD A LOT OF DISCOMFORT WITH THE PICC PLACEMENT. Review of Systems General: No Chills, Fatigue HEENT: No Head Aches, No Sore Throat Pulmonary: Dyspnea, Cough Cardiovascular: Chest Pain Gastrointestinal: Nausea Neurological: Weakness Objective Exam Vital Signs Date Time Temp Pulse Resp B/P (MAP) Pulse Ox O2 Delivery O2 Flow Rate FiO2 02/17/17 00:15 97.8 62 18 123/79 96 Nasal Cannula 4.00 02/16/17 23:50 Nasal Cannula 3.00 02/16/17 20:40 Nasal Cannula 4.00 02/16/17 16:00 98.6 63 18 121/83 95 Nasal Cannula 4.00 02/16/17 12:57 98.0 60 20 120/74 96 Nasal Cannula 4.00 Capillary Refill : Less Than 3 SecondsLess Than 3 Seconds General Appearance: No Apparent Distress, WD/WN HEENT: PERRL/EOMI Neck: Supple Respiratory: Chest Non Tender, Lungs Clear, Normal Breath Sounds Cardiovascular: Regular Rate, Rhythm Gastrointestinal: normal bowel sounds, non tender, soft Extremity: No Pedal Edema Neurologic/Psychiatric: Alert, Oriented x3, Normal Mood/Affect Skin: Warm/Dry Lymphatic: No Adenopathy Results Lab Laboratory Tests 02/16/17 09:32: D-Dimer 2.27H, Vancomycin Level Trough 20.4H 02/17/17 05:37: White Blood Count 8.7, Red Blood Count 3.29L, Hemoglobin 9.5L, Hematocrit 30L, Mean Corpuscular Volume 91, Mean Corpuscular Hemoglobin 29, Mean Corpuscular Hemoglobin Concent 32, Red Cell Distribution Width 13.9, Platelet Count 184, Mean Platelet Volume 10.6H, Neutrophils (%) (Auto) 77H, Lymphocytes (%) (Auto) 12, Monocytes (%) (Auto) 10, Eosinophils (%) (Auto) 2, Basophils (%) (Auto) 0, Neutrophils # (Auto) 6.7, Lymphocytes # (Auto) 1.1, Monocytes # (Auto) 0.8, Eosinophils # (Auto) 0.1, Basophils # (Auto) 0.0, Sodium Level 136, Potassium Level 4.1, Chloride Level 108H, Carbon Dioxide Level 18L, Anion Gap 10, Blood Urea Nitrogen 31H, Creatinine 1.72H, Estimat Glomerular Filtration Rate 28, BUN/ Creatinine Ratio 18, Glucose Level 89, Calcium Level 8.6, Magnesium Level 1.8 Microbiology 02/13/17 Blood Culture - Preliminary, Resulted Staph, Coag Neg (Employee Services Manager) 02/14/17 C. difficile GDH Antigen & Toxins - Final, Complete 02/13/17 Urine Culture - Final, Complete NO GROWTH Assessment/Plan Assessment/Plan Assess & Plan/Chief Complaint SEVERE SEPSIS - DUE TO COAGNEGATIVE STAPH - VANCOMYCIN IV TO COMPLETE 7 DAYS OF IV ANTIBIOTICS. FALL ATHOME WITH RIGHT ULNAR FRACTURE - CONSULT TO DR. TAYLOR FOR CASTING. - CAST PLACED, PT TOLERATING CAST WITHOUT TROUBLE CHRONIC RENAL FAILURE - ON ADMISSION CREATININE ELEVATED, RENALLY ADJUST ALL MEDICATIONS, MONITOR CREATININE - PUSH FLUIDS. LEUKOCYTOSIS - IMPROVED. HYPERTENSION - CHRONIC AND USUALLY DIFFICULT TO CONTROL - RESUME HOME MEDICATIONS, APPRECIATE CARDIOLOGY CONSULTATION. HYPOXEMIA - ON OXYGEN - CONTINUE WITH WEANING OF OXYGEN ABLE. Clinical Quality Measures DVT/VTE Risk/Contraindication: Risk Factor Score Per Nursin RFS Level Per Nursing on Admit: 3=High RAH ANGELES MD Feb 17, 2017 09:27
--- NOTE | 2017-02-17 09:42 | Occupational Ther Daily Note ---
OT Current Status-Daily Note Subjective Pt alert, lying in bed. Pt's family present in room. Pt agreed to therapy. No c/o pain at this time. Mental Status/Objective Functional [place] Measure 0=Not Assessed/NA 4=Minimal Assistance 1=Total Assistance 5=Supervision or Setup 2=Maximal Assistance 6=Modified [place] 3=Moderate Assistance 7=Complete [place] Attachments: IV, Oxygen ADL-Treatment Pt agreed to shower today. Using raised HOB and bed rails, pt able to go from supine to sitting EOB. Pt required mod A to scoot self on EOB to be able to place feet on the ground. CGA using FWW to ambulate into bathroom. Transferred to toilet with CGA. Pt able to complete hygiene with CGA using FWW. Pt then transferred into shower with CGA using FWW, grabbars and shower bench. Pt was able to complete bathing sitting on bench, SBA using grabbars to stand and cleanse buttocks and derek area. Pt able to dry self in sitting then CGA to dry buttocks and derek area. Pt required assist to doff/don socks. Assist to don underwear and hike over hips. CGA for donning pants. Set up only for dressing upper body. Pt was able to comb sides of hair, assist to comb back of head. Pt transferred back to recliner with CGA using FWW. Nrsg present in room. After therapy, pt sitting in recliner with call light/phone in reach. All needs met in room. Bathing (FIM): 4 Bathing Location: L Arm, R Arm, L Upper Leg, R Upper Leg, L Lower Leg ( including foot), R Lower Leg (including foot), Chest, Abdomen, Buttocks, Perineal Area Upper Body (FIM): 5 Lower Body Dressing (FIM): 3 Toileting (FIM): 4 Transfers (B, C, W/C) (FIM): 4 Toilet/Commode Transfer (FIM): 4 Shower Transfer(FIM): 4 OT Short Term Goals Short Term Goals 1=Demonstrate adherence to instructed precautions during ADL tasks. 2=Patient will verbalize/demonstrate understanding of assistive devices/ modifications for ADL. 3=Patient will improve strength/tolerance for activity to enable patient to perform ADL's. OT Usp Goals Plant Nursery Worker Goals Time Frame: Feb 23, 2017 Eating (FIM): 6 Grooming(FIM): 6 Bathing(FIM): 5 Upper Body Dressing(FIM): 6 Lower Body Dressing(FIM): 6 Toileting(FIM): 6 Toilet/Commode Transfer(FIM): 6 Shower Transfer(FIM): 5 Additional Goals: 1-Demonstrate ADL Tasks, 2-Verbalize Understanding, 3- ImproveStrength/[place] 1=Demonstrate adherence to instructed precautions during ADL tasks. 2=Patient will verbalize/demonstrate understanding of assistive devices/ modifications for ADL. 3=Patient will improve strength/tolerance for activity to enable patient to perform ADL's. OT Education/Plan Problem List/Assessment Pt would benefit from skilled OT to increase her independence in basic self care to allow her to safely return to her home and to decrease caregiver burden Discharge Recommendations Plan/Recommendations: Continue POC Treatment Plan/Plan of Care Patient would benefit from OT for education, treatment and training to promote independence in ADL's, mobility, safety and/or upper extremity function for ADL' s. Plan of Care: ADL Retraining, Functional Mobility, UE Funct Exercise/Act, UE Neuromus Re-Ed/Coord, OTHER (edema management) Treatment Duration: Feb 23, 2017 Frequency: 5 times per week Estimated Hrs Per Day: .5 hour per day Agreement: Yes Rehab Potential: Good Time/GCodes Start Time: 08:50 Stop Time: 09:30 Total Time Billed (hr/min): 40 Billed Treatment Time 1 visit-ADL 3 (40 min) PATRICIA ARCOS Feb 17, 2017 09:42
[2017-02-17] MEDS ORDERED: INFLUENZA TRIvalent 2017-2018 0.5 ML/45 MCG SYR IM ONE (09:57)
--- NOTE | 2017-02-17 11:08 | Physical Therapy Daily Note ---
PT Daily Note-Current Subjective Patient is sitting in recliner utilizing her IS with family present. Agrees to PT. Pain Numeric Pain Scale: 0-No Pain Location: No Pain Reported Mental Status Patient Orientation: Normal For Age Attachments: Oxygen (2L) Transfers Functional [place] Measure 0=Not Assessed/NA 4=Minimal Assistance 1=Total Assistance 5=Supervision or Setup 2=Maximal Assistance 6=Modified [place] 3=Moderate Assistance 7=Complete IndependenceIRFPAI Quality Coding Scale 6 Independent with activity with or without an assistive device 5 Patient requires set up or clean up by helper. Patient completes activity by themselves 4 Supervision or touching assist (CGA). [place] provide cues , steadying assist 3 The helper provides less than half the effort to complete the activity 2 The helper provides more than half the effort to complete the activity 1 Dependent. The helper does all the effort to complete an activity 7 Patient refused to complete or attempt activity 9 The patient did not perform the activity before the current illness or injury 88 Not attempted due to Medical conditions or safety concerns Transfers (B, C, W/C) (FIM): 5 Scootin Sit to/from Stand: 5 close SBA for safety Weight Bearing Right Lower Extremity: Right Full Weight Bearing Left Lower Extremity: Left Full Weight Bearing Gait Training Gait (FIM): 2 Distance (FIM): 7=784-09 ft Distance: 125' Gait Level of Assist: 4 Gait Persons Needed: 1 Gait Assistive Device: FWW slow, shuffle gait sequence Exercises Seated Therapy Exercises: Ankle pumps, Long arc quads, Hip flexion Seated Reps: 15 Assessment Patient fatigues with minimal activity, however, maintained SAO2 >90% on RA during activity. RN notified. Per RN, patient will swing tomorrow. PT Senior Care Goals Senior Care Goals PT Senior Care Goals Time Frame: Feb 20, 2017 Gait distance (FIM): 3=150 ft Distance: 150 Gait Assistive Device: Cane Single Point # of Steps: 3 Stairs Level Of Assist: 4 PT Plan Treatment/Plan Treatment Plan: Continue Plan of Care Treatment Plan: Bed Mobility, Education, Functional Activity [place], Functional Strength, Gait, Safety, Therapeutic Exercise, Transfers Treatment Duration: Feb 20, 2017 Frequency: 11 times per week Estimated Hrs Per Day: .25 hour per day Patient and/or Family Agrees t: Yes Time/GCodes Time In: 1037 Time Out: 1047 Total Billed Treatment Time: 10 Total Billed Treatment 1 visit FA 10 min CHRISTIANO FRANCIS PT Feb 17, 2017 11:08
[2017-02-17] MEDS: COMBIGAN OPTHALMIC OS SCH (12:05)
--- NOTE | 2017-02-17 12:55 | Physical Therapy Daily Note ---
PT Daily Note-Current Subjective Patient is sleeping upon PT entering the room this p.m. She reports that she is feeling okay and has just ordered lunch. Pain Numeric Pain Scale: 5-Moderate Pain Location: Left Location Body Site: Arm Pain Description: Ache, Dull Appearance Patient displays healthy appearance for her age. Mental Status Patient Orientation: Normal For Age Attachments: Oxygen Patient receives 2.0 L of oxygen at rest. Oxygen unnecessary for functional activities. Transfers Functional [place] Measure 0=Not Assessed/NA 4=Minimal Assistance 1=Total Assistance 5=Supervision or Setup 2=Maximal Assistance 6=Modified [place] 3=Moderate Assistance 7=Complete IndependenceIRFPAI Quality Coding Scale 6 Independent with activity with or without an assistive device 5 Patient requires set up or clean up by helper. Patient completes activity by themselves 4 Supervision or touching assist (CGA). [place] provide cues , steadying assist 3 The helper provides less than half the effort to complete the activity 2 The helper provides more than half the effort to complete the activity 1 Dependent. The helper does all the effort to complete an activity 7 Patient refused to complete or attempt activity 9 The patient did not perform the activity before the current illness or injury 88 Not attempted due to Medical conditions or safety concerns Transfers (B, C, W/C) (FIM): 5 Sit to/from Stand: 5 Patient performs sit to stand transfers to and from chair with therapist supervision and cueing. Weight Bearing Right Lower Extremity: Right Full Weight Bearing Left Lower Extremity: Left Full Weight Bearing Gait Training Gait (FIM): 2 Distance (FIM): 1=472-90 ft Distance: 100' Gait Level of Assist: 5 Gait Persons Needed: 1 Gait Assistive Device: FWW Patient performs 100' of walking with slow, yet safe gait pattern before wanting to rest. Exercises Seated Therapy Exercises: Long arc quads (1 set bilaterally), Hip flexion (1 set bilaterally) Seated Reps: 25 Assessment Current Status: Good Progress Patient shows good tolerance for PT. Exercise progression will continue to emphasize improved aerobic capacity and LE functional strength as the right UE heals. PT Film Cutter Goals Film Cutter Goals PT Fdc Goals Time Frame: Feb 20, 2017 Gait distance (FIM): 3=150 ft Distance: 150 Gait Assistive Device: Cane Single Point # of Steps: 3 Stairs Level Of Assist: 4 PT Plan Treatment/Plan Treatment Plan: Continue Plan of Care Treatment Plan: Bed Mobility, Education, Functional Activity [place], Functional Strength, Gait, Safety, Therapeutic Exercise, Transfers Treatment Duration: Feb 20, 2017 Frequency: 11 times per week Estimated Hrs Per Day: .25 hour per day Patient and/or Family Agrees t: Yes Time/GCodes Time In: 1224 Time Out: 1238 Total Billed Treatment Time: 14 Total Billed Treatment 1 visit FA 14 min CHRISTIANO FRANCIS PT Feb 17, 2017 12:55
[2017-02-17] MEDS ORDERED: TROUGH ORDER-PHARMACY XX NR ×2 (14:00→22:00)
[2017-02-17 16:00] VITALS: BP 177/77
--- NOTE | 2017-02-17 16:08 | Diagnostic Imaging Report ---
Portable upright radiograph of the chest. COMPARISON: 02/15/2017. FINDINGS: There is a left PICC line placed with the tip projecting at the confluence of the brachiocephalic veins/upper SVC level. The heart size is mildly enlarged with pulmonary vascular congestion. There is minimal left basilar atelectasis or infiltrate with a small left effusion. There is cardiomegaly. There is a pacemaker with cardiac leads seen. IMPRESSION: 1. Left PICC line is placed with the tip projecting near the upper SVC level. 2. Cardiomegaly with pulmonary vascular congestion. There is a small left effusion and left basilar opacity favored to be atelectasis. Dictated by: Dictated on workstation # [id number]
[2017-02-17] MEDS: HYDROcodone/APAP 10 MG/325 MG (LORTAB) TAB PO PRN (16:25)
[2017-02-17] MEDS: VANCOMYCIN INJECTION 1,000 MG in NS (IVPB) 250 ML IV SCH (17:19)
[2017-02-18] VITALS: BP 139/63
[2017-02-18] MEDS: LEVOTHYROXINE 25 MCG (LEVOTHROID) TAB PO SCH (05:33)
[2017-02-18 06:39] LABS: BASOPHILS % (AUTO) 0 % (0-10); EOSINOPHILS # (AUTO) 0.1 10^3/uL (0.0-0.3); EOSINOPHILS % (AUTO) 2 % (0-10); LYMPHOCYTES # (AUTO) 0.8 X 10^3 (1.0-4.0); LYMPHOCYTES % (AUTO) 10 % (12-44); MEAN CORPUSCULAR HEMOGLOBIN 29 PG (25-34); MEAN CORPUSCULAR HGB CONC 32 G/DL (32-36); MEAN CORPUSCULAR VOLUME 89 FL (80-99); MONOCYTES # (AUTO) 0.8 X 10^3 (0.0-1.0); MONOCYTES % (AUTO) 10 % (0-12); NEUTROPHILS # (AUTO) 6.4 X 10^3 (1.8-7.8); NEUTROPHILS % (AUTO) 79 % (42-75); PLATELET COUNT 212 10^3/uL (130-400); RED CELL DISTRIBUTION WIDTH 13.7 % (10.0-14.5); WHITE BLOOD COUNT 8.1 10^3/uL (4.3-11.0)
[2017-02-18 07:00] LABS: CALCIUM 8.7 MG/DL (8.5-10.1); CREATININE SERUM 1.39 MG/DL (0.60-1.30); MAGNESIUM 1.6 MG/DL (1.8-2.4); POTASSIUM 4.5 MMOL/L (3.6-5.0)
--- NOTE | 2017-02-18 07:52 | Pulmonary Progress Note ---
Subjective Date Seen by Provider: Feb 17, 2017 (Late node for 02/17 today is 02/18) Time Seen by Provider: 07:50 Subjective/Events-last exam Pt is feeling better. NO complications noted. Exam Exam Vital Signs Date Time Temp Pulse Resp B/P (MAP) Pulse Ox O2 Delivery O2 Flow Rate FiO2 02/18/17 00:00 98.2 61 16 139/63 96 Nasal Cannula 4.00 02/17/17 21:00 Nasal Cannula 2.00 02/17/17 16:00 97.5 62 18 177/77 96 Nasal Cannula 4.00 02/17/17 09:00 Nasal Cannula 2.00 02/17/17 08:30 97.5 63 18 150/60 96 Nasal Cannula 4.00 General Appearance: No Apparent Distress, WD/WN HEENT: PERRL/EOMI, Pharynx Normal Neck: Carotid Bruit Respiratory: Chest Non Tender, Lungs Clear, Normal Breath Sounds, No Accessory Muscle Use, No Respiratory Distress Cardiovascular: Regular Rate, Rhythm, No Murmur Capillary Refill: Less Than 3 Seconds Gastrointestinal: non tender, soft, no organomegaly, distended (appears to be improved compared to Thursday) Extremity: Non Tender, No Calf Tenderness Neurologic/Psychiatric: Alert, Oriented x3, Normal Mood/Affect Skin: Normal Color, Warm/Dry, Ecchymosis (both arms) Results Lab Laboratory Tests 02/17/17 05:37 02/18/17 06:25 Assessment/Plan Assessment/Plan Severe sepsis - improving Hypoxia - pulmonary edema-- no hx of tobacco use -Pt is on lasix will check BNP -Check Sp02 on RA and do oxygen desaturation testing -IS -Oxygen - titrate to D/C if possible -CT of chest is suggestive of pulmonary edema. Continue lasix decrease IVF GIB -monitor 232 Clinical Quality Measures DVT/VTE Risk/Contraindication: Risk Factor Score Per Nursin RFS Level Per Nursing on Admit: 3=High BETZY IRBY DO Feb 18, 2017 7:52 am
--- NOTE | 2017-02-18 07:56 | Pulmonary Progress Note ---
Subjective Time Seen by Provider: 07:52 Subjective/Events-last exam no complications noted. Exam Exam Vital Signs Date Time Temp Pulse Resp B/P (MAP) Pulse Ox O2 Delivery O2 Flow Rate FiO2 02/18/17 00:00 98.2 61 16 139/63 96 Nasal Cannula 4.00 02/17/17 21:00 Nasal Cannula 2.00 02/17/17 16:00 97.5 62 18 177/77 96 Nasal Cannula 4.00 02/17/17 09:00 Nasal Cannula 2.00 02/17/17 08:30 97.5 63 18 150/60 96 Nasal Cannula 4.00 General Appearance: No Apparent Distress, WD/WN HEENT: PERRL/EOMI, Pharynx Normal Neck: Carotid Bruit Respiratory: Chest Non Tender, Lungs Clear, Normal Breath Sounds, No Accessory Muscle Use, No Respiratory Distress Cardiovascular: Regular Rate, Rhythm, No Murmur Capillary Refill: Less Than 3 Seconds Gastrointestinal: non tender, soft, no organomegaly, distended (appears to be improved compared to Thursday) Extremity: Non Tender, No Calf Tenderness Neurologic/Psychiatric: Alert, Oriented x3, Normal Mood/Affect Skin: Normal Color, Warm/Dry, Ecchymosis (both arms) Results Lab Laboratory Tests 02/17/17 05:37 02/18/17 06:25 Assessment/Plan Assessment/Plan Severe sepsis - improving Hypoxia - pulmonary edema-- no hx of tobacco use -Pt is on lasix will check BNP -Check Sp02 on RA and do oxygen desaturation testing -IS -Oxygen - titrate to D/C if possible -CT of chest is suggestive of pulmonary edema. Continue lasix decrease IVF Atelectasis -IS , increase activity GIB -monitor 232 Clinical Quality Measures DVT/VTE Risk/Contraindication: Risk Factor Score Per Nursin RFS Level Per Nursing on Admit: 3=High BETZY IRBY DO Feb 18, 2017 7:56 am
[2017-02-18] MEDS ORDERED: RT-ALBUTEROL/IPRATROPIUM 3 ML (DUONEB) VIAL INH PRN (08:00)
[2017-02-18] MEDS ORDERED: RT-ALBUTEROL/IPRATROPIUM 3 ML (DUONEB) VIAL INH SCH ×2 (08:00→11:00)
[2017-02-18] MEDS: VITAMIN D3 1,000 UNITS (CHOLECALCIFEROL) TABLET PO SCH (08:39)
[2017-02-18] MEDS: ASPIRIN 81 MG CHEW (CHILDREN'S ASA) PO SCH (08:39)
[2017-02-18] MEDS: lisINopril 20 MG (ZESTRIL) TAB PO SCH (08:39)
[2017-02-18] MEDS: FUROSEMIDE 40 MG (LASIX) TAB PO SCH (08:40)
[2017-02-18] MEDS: CARVEDILOL 6.25 MG (COREG) TAB PO SCH (08:40)
[2017-02-18] MEDS: hydrALAZINE (APRESOLINE) 25 MG TAB PO SCH (08:40)
[2017-02-18] MEDS: DILTIAZEM 180 MG (CARDIZEM CD) CAP PO SCH (08:41)
[2017-02-18] MEDS: COMBIGAN OPTHALMIC OS SCH (08:41)
[2017-02-18 08:43] VITALS: BP 160/70
--- NOTE | 2017-02-18 09:12 | Discharge Summary ---
Diagnosis/Chief Complaint Date of Admission Feb 13, 2017 at 17:00 Date of Discharge Discharge Summary Discharge Physical Examination Allergies: Coded Allergies: Penicillins (Verified Allergy, Unknown, 06/19/08) Sulfa (Sulfonamide Antibiotics) (Verified Allergy, Unknown, 06/19/08) Vitals & I&Os Vital Signs Date Time Temp Pulse Resp B/P (MAP) Pulse Ox O2 Delivery O2 Flow Rate FiO2 02/18/17 08:21 Nasal Cannula 2.00 02/18/17 00:00 98.2 61 16 139/63 96 Hospital Course Pending Labs Laboratory Tests 02/18/17 06:25: White Blood Count 8.1, Red Blood Count 3.10, Hemoglobin 8.9, Hematocrit 28, Mean Corpuscular Volume 89, Mean Corpuscular Hemoglobin 29, Mean Corpuscular Hemoglobin Concent 32, Red Cell Distribution Width 13.7, Platelet Count 212, Mean Platelet Volume 10.0, Neutrophils (%) (Auto) 79, Lymphocytes (%) (Auto) 10 , Monocytes (%) (Auto) 10, Eosinophils (%) (Auto) 2, Basophils (%) (Auto) 0, Neutrophils # (Auto) 6.4, Lymphocytes # (Auto) 0.8, Monocytes # (Auto) 0.8, Eosinophils # (Auto) 0.1, Basophils # (Auto) 0.0, Sodium Level 137, Potassium Level 4.5, Chloride Level 111, Carbon Dioxide Level 19, Anion Gap 7, Blood Urea Nitrogen 32, Creatinine 1.39, Estimat Glomerular Filtration Rate 36, BUN/ Creatinine Ratio 23, Glucose Level 102, Calcium Level 8.7, Magnesium Level 1.6 Discharge Instructions to patient/family Please see electronic discharge instructions given to patient. Discharge Medications Reviewed and agree with Discharge Medication list on patient's Discharge Instruction sheet Clinical Quality Measures DVT/VTE Risk/Contraindication: Risk Factor Score Per Nursin RFS Level Per Nursing on Admit: 3=High RAH ANGELES MD Feb 18, 2017 09:12
--- NOTE | 2017-02-19 11:13 | Physician Query Clarification ---
PQ-Further Specificity Admission/Discharge Admission Date: Feb 13, 2017 at 17:00 Discharge Date: Feb 18, 2017 at 09:15 The medical record reflects the following clinical scenario: History/Risk Factors: Severe Sepsis Clinical Findings: Hypoxia BNP-819.6 Pulmonary edema documented in progress notes- 02/16 CT chest/abdomen impression : Bilateral effusions and perihilar groundglass opacities with cardiomegaly are suggestive of mild interstitial pulmonary edema from CHF. Dictated by Aric Mccullough MD. Treatment: Patient did require oxygen at home, but was requiring 3Liters of oxygen in hospital. 40 mg lasix. Question: Can you further specify Pulmonary Edema per the clinical indicators above? Please document below. 1. Acute pulmonary edema. 2. Chronic pulmonary edema. 3. Acute systolic congestive heart failure. 4. Acute diastolic congestive heart failure. 5. Acute combined systolic and diastolic congestive heart failure. 6. Chronic systolic congestive heart failure. 7. Chronic diastolic congestive heart failure. 8. Chronic combined systolic and diastolic congestive heart failure. 9. Other, with explanation of the clinical findings. 10. Clinically undetermined, no explanation for the clinical findings. PHYSICIAN RESPONSE Can you specify per above: 1 In responding to this query, please exercise your independent professional judgment. The purpose of this communication is to more accurately reflect the complexity of your patients condition. The fact that a question is asked does not imply that any particular answer is desired or expected. Thank you for your timely response to this clarification. Requestors name: Charissa Spicer [facility] Phone # ext [phone] or [phone] THIS PHYSICIAN QUERY FORM IS A PERMANENT PART OF THE MEDICAL RECORD CHARISSA SPICER Feb 19, 2017 11:13 BETZY IRBY DO Feb 25, 2017 07:20
--- NOTE | 2017-02-19 11:23 | Physician Query Clarification ---
PQ-Further Specificity Admission/Discharge Admission Date: Feb 13, 2017 at 17:00 Discharge Date: Feb 18, 2017 at 09:15 The medical record reflects the following clinical scenario: History/Risk Factors: Severe Sepsis Clinical Findings: Presumed viral gastroenteritis- H&P Blood cultures positive for Coag neg staph Treatment: IV Vancomycin, IV Ceftriaxone Sodium, Question: Can you further specify Sepsis per the clinical indicators above? Please document below. 1. Sepsis due to Coag neg Staph. 2. Viral sepsis due to viral gastroenteritis. 3. Other, with explanation of the clinical findings. 4. Clinically undetermined, no explanation for the clinical findings. PHYSICIAN RESPONSE Can you specify per above: 1 In responding to this query, please exercise your independent professional judgment. The purpose of this communication is to more accurately reflect the complexity of your patients condition. The fact that a question is asked does not imply that any particular answer is desired or expected. Thank you for your timely response to this clarification. Requestors name: Charissa Spicer [facility] Phone # ext [phone] or [phone] THIS PHYSICIAN QUERY FORM IS A PERMANENT PART OF THE MEDICAL RECORD CHARISSA SPICER Feb 19, 2017 11:23 RAH ANGELES MD Feb 20, 2017 19:46
--- NOTE | 2017-02-19 11:32 | Physician Query Clarification ---
PQ-Uncertain Diagnosis Admission/Discharge Admission Date: Feb 13, 2017 at 17:00 Discharge Date: Feb 18, 2017 at 09:15 The medical record reflects the following clinical scenario: History/Risk Factors: Severe sepsis Clinical Findings: UA- Clarity-cloudy, Specific gravity 1.015, Ketones 1+, urine WBC 5-10, bacteria few. Urine culture-no growth Treatment: ED-Dr. Herrera' progress note said, " We will treat for UTI". IV Ceftriaxone. Question: Is UTI a clinically valid diagnosis? UTI was documented in the ED record with no further documentation in the medical record. Please document a response below. PHYSICIAN RESPONSE Diagnosis clinically valid: No, conditon ruled out In responding to this query, please exercise your independent professional judgment. The purpose of this communication is to more accurately reflect the complexity of your patients condition. The fact that a question is asked does not imply that any particular answer is desired or expected. Thank you for your timely response to this clarification. Requestors name: Charissa Ku [facility] Phone # ext [phone] or [phone] THIS PHYSICIAN QUERY FORM IS A PERMANENT PART OF THE MEDICAL RECORD CHARISSA KU Feb 19, 2017 11:32 RAH ANGELES MD Feb 20, 2017 19:47
--- NOTE | 2017-02-23 09:07 | CONSULTATION REPORT ---
DATE OF SERVICE: 02/13/2017 CHIEF COMPLAINT: Right wrist pain and swelling. HISTORY OF PRESENT ILLNESS: This is an 86-year-old female, who was admitted this past Thursday to the ER after a fall. She reports that she became dizzy and lightheaded and lost her balance and fell. Upon admission to the ER, x-rays revealed a fracture of the right wrist and she was found to have dehydration, renal failure and gastroenteritis, also urinary tract infection was suspected. Medication allergies include penicillin and sulfa. The patient was admitted for IV fluid and observation, as well as antibiotics. She has been in a volar cock-up wrist splint since her admission. She is right hand dominant, otherwise reports no previous history of significant right upper extremity trauma or dysfunction. CURRENT MEDICATIONS: Include lisinopril, Synthroid, Lortab, Colace, diltiazem ER, alprazolam, baby aspirin, Combigan eye drops, carvedilol, vitamin B3 and B2, citalopram, Lasix and hydralazine. PAST MEDICAL HISTORY: Include bladder cancer, pacemaker, irregular heartbeat, hypertension, hypothyroidism, cataracts and anxiety disorder. PAST SURGICAL HISTORY: Includes abdominal surgery, Bartholin cyst excision and bladder surgery. FAMILY HISTORY: Include heart disease and hypertension as well. Recent lab workup upon admission revealed elevated white blood cell count as well as mild anemia and hyponatremia. Right wrist examination today reveals mild swelling throughout the hand and wrist. She has diffuse ecchymosis throughout the right upper extremity as well. Passively, she demonstrates near full wrist flexion and extension. She was nontender throughout the carpus and metacarpals and nontender over the distal radius. She did have tenderness to palpation of the distal ulna just proximal to the styloid. She was nontender throughout the midshaft and proximal forearm and nontender throughout the elbow structures. She demonstrated active elbow flexion and extension. Review of x-rays, 3 views, the right forearm from [facility] dated 02/13/2017 showed a nondisplaced oblique fracture of the distal third ulna. No obvious intraarticular extension is noted. No other acute abnormalities were noted. IMPRESSION: Well-aligned, closed, nondisplaced right distal ulna fracture. PLAN: The patient was placed into a short arm cast today and tolerated this very well. She verbalized comfort following cast application. She was encouraged to maintain elevation of the right upper extremity higher than her heart as much as possible over the next 48 hours. We will plan for follow up on an outpatient basis in 4 weeks for cast removal and new x-rays on arrival. She will call sooner if needed. Thank you for the consult. Dr. Celis was informed of the consult as well. Job ID: [id number] DocumentID: [id number] Dictated Date: 02/16/2017 17:56:43 Pasteurizing Machine Operator Date: 02/17/2017 02:19:31 Dictated By: MARIE VILLA
[2017-02-23] MEDS ORDERED: ALPR0.5T7 PO (09:48)
[2017-02-23] MEDS ORDERED: HYDR-3820 PO (09:48)
== END 2017-02-18 09:15 | disposition swing bed (61) | DRG 871 ==
LOC: EDUNIT# 13:48 → ER 13:49 → ICU 17:00 → 4TH 02-14 14:32
PROVIDERS: ADMIT Internal Medicine; ATTEND Family Medicine
PROC: 2W3CX2Z Immobilization of Right Lower Arm using Cast (ICD-10-PCS; 2017-02-16)
PROC: 02HV33Z Insertion of Infusion Device into Superior Vena Cava, Percutaneous Approach (ICD-10-PCS; principal; 2017-02-17)
DX: A41.1 Sepsis due to other specified staphylococcus (principal); R65.20 Severe sepsis without septic shock; A04.8 Other specified bacterial intestinal infections; N17.9 Acute kidney failure, unspecified; J81.0 Acute pulmonary edema; S52.601A Unspecified fracture of lower end of right ulna, initial encounter for closed fracture; K92.2 Gastrointestinal hemorrhage, unspecified; J98.11 Atelectasis; Z66 Do not resuscitate; Z23 Encounter for immunization; E86.0 Dehydration; E87.1 Hypo-osmolality and hyponatremia; D64.9 Anemia, unspecified; R09.02 Hypoxemia; I12.9 Hypertensive chronic kidney disease with stage 1 through stage 4 chronic kidney disease, or unspecified chronic kidney disease; N18.9 Chronic kidney disease, unspecified; E03.9 Hypothyroidism, unspecified; F41.9 Anxiety disorder, unspecified; G47.9 Sleep disorder, unspecified; K59.00 Constipation, unspecified; K44.9 Diaphragmatic hernia without obstruction or gangrene; W19.XXXA Unspecified fall, initial encounter; Y92.009 Unspecified place in unspecified non-institutional (private) residence as the place of occurrence of the external cause; Z95.0 Presence of cardiac pacemaker; Z79.82 Long term (current) use of aspirin; Z85.51 Personal history of malignant neoplasm of bladder
CPT/HCPCS: 36415; 36569; 51702; 71010; 71250; 73090; 73130; 74022; 74176; 76937; 80048; 80053; 80202; 81000; 82274; 82962; 83605; 83735; 83880; 84100; 85007; 85025; 85027; 85379; 85610; 85730; 87040; 87077; 87088; 87186; 87324; 87449; 93005; 93970; 94664; 94761; 96361; 96365; 96375; 96376

== ENCOUNTER 2017-02-18 08:23 | Inpatient (IN) | payer MEDICARE, BC ==
[~2017-02-18] VITALS: Ht 165.1 cm; Wt 78.6 kg
[~2017-02-18 08:23] MED LIST changes: +ALPR0.5T7 PO; +ASPI-983 PO; +BRIM5DRO OS; +CARV12.53 PO; +CHOL10007 PO; +CHOL20002 PO; +CITA40TA11 PO; +DOCU-143 PO; +ERGO50006 PO; +FLAX1000 PO; +HYDR-3820 PO; +HYDR100T27 PO; +LEVO25TA5 PO
[2017-02-18] MEDS ORDERED: RT-ALBUTEROL/IPRATROPIUM 3 ML (DUONEB) VIAL INH PRN (09:30)
[2017-02-18] MEDS ORDERED: ALPRAZolam 0.5 MG (XANAX) TAB PO PRN (09:30)
[2017-02-18] MEDS ORDERED: DOCUSATE SODIUM 100 MG (COLACE) CAP PO NR (09:30)
[2017-02-18] MEDS ORDERED: ONDANSETRON 4 MG/2 ML (SDV) Z0FRAN IVP PRN (09:30)
[2017-02-18] MEDS ORDERED: HYDROmorphone (DILAUDID) 2 MG/ML VIAL IVP PRN (09:30)
[2017-02-18] MEDS ORDERED: CATHETER FLUSH 10 ML SYR IV PRN (09:30)
[2017-02-18] MEDS ORDERED: VANCOMYCIN INJECTION 1,000 MG in NS (IVPB) 250 ML IV SCH ×2 (09:30→15:00)
--- OUTSIDE RECORDS SUMMARY | 2017-02-18 09:39 | XMS REPORT | Continuity of Care Document ---
Author Author [facility] Organization [facility] Address Unknown Phone Unavailable Allergies Active Description Code Type Severity Reaction Onset Reported/Identified Relationship to Patient Clinical Status Yes Penicillins [id number] Drug Allergy Unknown N/A 06/19/2008 Yes Sulfa (Sulfonamide Antibiotics) [id number] Drug Allergy Unknown N/A 06/19/2008 Medications Problems [...] SLIPPING, TRIPPING, OR STUMBLI 06/10/2011 Ot V06.1 [id number], COMBINED [ 06/10/2011 Ot V58.61 ANTICOAGULANTS,LT,CURRENT USE [...] OCCLUSION W O CEREBRAL IN 02/21/2013 RAH ANEGLES MD Ot 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 02/21/2013 RAH ANGELES [...] ANGELES MD Ot V58.61 ANTICOAGULANTS,LT,CURRENT USE 03/05/[address] [employer] Ot 599.0 URIN TRACT INFECTION NOS 03/05/[address] [employer] Ot 789.09 ABDOMINAL PAIN, OTHER SPECIFIED SITE 05/17/2013 RAH ANGELES MD Ot 244.9 HYPOTHYROIDISM NOS 05/17/2013 RAH ANGELES MD Ot 272.4 HYPERLIPIDEMIA NEC/NOS 05/17/2013 ARH ANGELES MD Ot 300.00 ANXIETY STATE NOS 05/17/2013 RAH ANGELES MD Ot 403.90 HYPTNSV CHR KID DIS, UNSPEC, W CHR KD ST 05/17/2013 RAH ANGELES MD Ot 414.01 CORONARY ATHEROSCLEROSIS OF [place] CORON 05/17/2013 RAH ANGELES MD Ot 427.31 [...] FOR OCCUPATIONAL THERAPY 04/26/[address] Ot M79.605 04/26/[address] Ot R22.42 05/03/[address] Ot M79.605 05/03/[address] Ot R22.42 01/16/2016 Ot 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 Visit Date/Time Discharge Status Pt. Type Provider Facility Loc./Unit Complaint [id number] 01/16/2016 12:47:00 2015 23:59:59 CLS Outpatient MUNIRA HINOJOSA MD [facility] RAD BLAD CA-C67.9 [id number] 04/02/2015 16:35:00 2014 23:59:59 CLS Outpatient J [employer] [facility] RAD LEFT LOWER EXTREMITY SWELLING, POPLITEAL PAIN [id number] 03/02/2014 12:50:00 2013 13:29:00 DIS Outpatient JESIKA HIGGINS MD [facility] REHAB S/P L DISTAL RADIUS FX [id number] 11/30/2013 07:32:00 2013 09:26:00 DIS Emergency MARCE ALBARRAN DO [facility] ER FALL/LEFT WRIST INJURY [id number] 09/16/2013 07:56:00 2013 23:59:59 CLS Outpatient MUNIRA HINOJOSA MD [facility] RAD GROSS HEMATURIA [id number] 08/31/2013 11:33:00 2013 23:59:59 CLS Outpatient RAH ANGELES MD [facility] LAB GROSS HEMATURIA [id number] 05/14/2013 11:30:00 2013 11:42:00 DIS Inpatient RAH ANGELES MD [facility] 4TH PNEUMONIA BILAT,ACUTE RENAL FAILURE, VOLUME OVERLOA [id number] 03/05/2013 13:46:00 2012 16:21:00 DIS Emergency [employer] [facility] ER POSS KIDNEY INFECTION [id number] 02/16/2013 10:45:00 2012 16:00:00 DIS Inpatient RAH ANGELES MD [facility] 4TH SYNCOPE,NECK SWELLING [id number] 01/16/2016 12:46:00 Document Registration [id number] 01/16/2016 12:46:00 Document Registration [id number] 01/16/2016 12:46:00 Document Registration [id number] 07/05/2012 10:05:00 Document Registration [id number] 03/03/2012 08:54:00 Document Registration [id number] 10/16/2011 09:55:00 Document Registration [id number] 08/08/2011 11:34:00 Document Registration [id number] 07/17/2011 12:43:00 Document Registration [id number] 06/17/2011 08:34:00 Document Registration [id number] 06/14/2011 09:01:00 Document Registration [id number] 06/10/2011 12:34:00 Document Registration [id number] 02/20/2011 08:16:00 Document Registration [id number] 08/15/2010 08:00:00 Document Registration
[2017-02-18] MEDS ORDERED: RT-ALBUTEROL/IPRATROPIUM 3 ML (DUONEB) VIAL INH SCH (11:00)
[2017-02-18] MEDS: RT-ALBUTEROL/IPRATROPIUM 3 ML (DUONEB) VIAL INH SCH ×3 (11:01→19:17)
[2017-02-18] MEDS: [UNRECOGNIZED DRUG - OTHER] OS SCH (12:00)
[2017-02-18] MEDS: TIMOLOL OS SCH (12:00)
[2017-02-18] MEDS: BRIMONIDINE TARTRATE OS SCH (12:00)
--- NOTE | 2017-02-18 12:19 | Progress Note-Standard ---
Standard Progress Note Progress Notes/Assess & Plan Date Seen by Provider: Feb 18, 2017 Time Seen by Provider: 12:19 Progress/Assessment & Plan No complaints cast in place NVI follow up as outpatient DELON TAYLOR MD Feb 18, 2017 12:19
--- NOTE | 2017-02-18 13:35 | Physical Therapy Evaluation ---
PT Evaluation-General Medical Diagnosis Admission Date Feb 18, 2017 at 09:23 Medical Diagnosis: SEPSIS; ACUTE RENAL FAILURE Onset Date: Feb 13, 2017 Therapy Diagnosis Therapy Diagnosis: impaired mobility, strength, endurance Height/Weight Height (Feet): 5 Height (Inches): 5.00 Weight (Pounds): 173 Weight (Ounces): 6.0 Precautions Precautions/Isolations: Fall Prevention, Standard Precautions Referral Physician: Jena Blas MD Reason for Referral: Evaluation/Treatment Medical History Pertinent Medical History: HTN, Hypothroidism, Renal Insufficiency Additional Medical History bladder Cancer, pacemaker Reviewed History: Yes Social History Home: Single Level Current Living Status: Alone Entry Into Home: Stairs With Railing PT Steps Into Home: 2 Prior/Core FIM Prior Level of Function Functional [place] Measure 0=Not Assessed/NA 4=Minimal Assistance 1=Total Assistance 5=Supervision or Setup 2=Maximal Assistance 6=Modified [place] 3=Moderate Assistance 7=Complete [place] Bed Mobility: 6 Transfers (B,C,W/C) (FIM): 6 Gait: 6 Patient states she uses a single point cane outside of the home PT Evaluation-Current Subjective Patient in recliner pre tx, agrees to PT, family in the room, has pain of 5/10 in right arm. Has a cast on right arm. Pt/Family Goals to be independent at home Objective Patient Orientation: Person, Place, Situation Attachments: Oxygen 2L of O2 nasal canula ROM/Strength ROM Lower Extremities WNL Strenght Lower Extremities right lower extremity (hip flexion 3+/5, knee flexion 4/5, knee extension 4+/5, dorsiflexion 4+/5), left lower extremity (hip flexion 3+/5, knee flexion 4/5, knee extension 4+/5, dorsiflexion 4+/5) Neuromuscular (Tone, Coordination, Reflexes) NT Sensory Vision: Wears Glasses Hearing: Impaired Sensation Right Lower Extremit: Intact Sensation Left Lower Extremity: Intact Sensation Lower Extremities Patient has no complaints of numbness or tingling in her legs. Transfers Functional [place] Measure 0=Not Assessed/NA 4=Minimal Assistance 1=Total Assistance 5=Supervision or Setup 2=Maximal Assistance 6=Modified [place] 3=Moderate Assistance 7=Complete [place] Transfers (B, C, W/C) (FIM): 5 Sit to/from Stand: 5 SBA, good safety awareness, reaches back for chair when sitting Gait Does the Patient Walk?: Yes Mode of Locomotion: Walk Gait (FIM): 5 Distance: 200' Walk 50 ft with 2 Turns(QC): 4 Walk 150 ft (QC): 4 Gait Level of Assist: 5 Gait Persons Needed: 1 Gait Assistive Device: FWW Comments/Gait Description Patient ambulates 200' with a rolling walker with SBA, patient does not put much if any weight through her right arm. Wheelchair Training Does the Pt Use a Wheelchair?: No Balance Sitting Static: Normal Sitting Dynamic: Normal Standing Static: Good Standing Dynamic: Good Treatment bilateral lower extremity seated exercises x20 (AP, LAQ, hip flexion) Assessment/Needs Patient has impaired mobility, strength, endurance, has cast on right arm and pain. She displays fairly safe behavior during mobility. Rehab Potential: Fair PT Short Term Goals Short Term Goals Time Frame: Feb 25, 2017 Transfers (B,C,W/C) (FIM): 6 Gait (FIM): 6 Gait Distance Comment: 300' Gait Assistive Device: Cane Single Point PT Plan Problem List Problem List: Activity Tolerance, Functional Strength, Safety, Balance, Gait, Transfer, Bed Mobility Treatment/Plan Treatment Plan: Continue Plan of Care Treatment Plan: Bed Mobility, Education, Functional Activity [place], Functional Strength, Gait, Safety, Therapeutic Exercise, Transfers Treatment Duration: Feb 25, 2017 Frequency: 6 times per week Estimated Hrs Per Day: .25 hour per day (15-30') Patient and/or Family Agrees t: Yes Safety Risks/Education Patient Education: Gait Training, Transfer Techniques, Correct Positioning, Safety Issues Teaching Recipient: Patient Teaching Methods: Demonstration, Discussion Response to Teaching: Reinforcement Needed Discharge Recommendations Therapy D/C Recommendations: Home w/ Family Support Time/GCodes Time In: 1300 Time Out: 1331 Total Billed Treatment Time: 31 Total Billed Treatment 1 visit EVL 15' GT 16' GILL LOZOYA PT Feb 18, 2017 13:35
--- NOTE | 2017-02-18 14:43 | Occupational Therapy Eval ---
OT Evaluation-General/PLF Medical Diagnosis Admission Date Feb 18, 2017 at 09:23 Medical Diagnosis: SEPSIS; ACUTE RENAL FAILURE Onset Date: Feb 13, 2017 Therapy Diagnosis Therapy Diagnosis: decreased self care skills Height/Weight Height (Feet): 5 Height (Inches): 5.00 Weight (Pounds): 173 Weight (Ounces): 6.0 Precautions Precautions/Isolations: Fall Prevention, Standard Precautions Safety Interventions: None Referral Physician: Jena Blas MD Medical History Pertinent Medical History: HTN, Hypothroidism, Renal Insufficiency Additional Medical History irregular heartbeat, sleep difficulties, anxiety Current History Pt had fall at home resulting in right distal ulna fracture. Cast is now in place on right wrist Reviewed History: Yes Social History Home: Single Level Current Living Status: Alone Entry Into Home: Stairs With Railing Steps Into Home: 2 ADL-Prior Level of Function ADL PLOF Comments Pt reports being independent with basic self care and mobility prior to admission. Uses cane outside when she walks her dog. Has assist with cleaning every 2 weeks. DME/Equipment: Grab Bars, Shower DME/Equipment Comments lift chair, built in shower seat Drive Self: Yes OT Current Status Subjective Pt sitting in chair, agrees to therapy. Pt reports 4/10 right wrist pain. Mental Status/Objective Attachments: Oxygen Current Glasses/Contacts: Yes Hearing Aids: No Dentures/Partials: Yes Hand Dominance: Right Upper Extremity ROM Left UE grossly WFL Pt has functional right shoulder and elbow movement and is able to wiggle her fingers. Unable to fully assess right UE secondary to cast. Upper Extremity Coordination Left UE WFL Right UE unable to assess secondary to cast. ADL-Treatment ADL-Current Pt states she is able to feed herself after someone opens the containers. Pt requires assist to doff/don socks at this time. Sit to stand with supervision. Gait to restroom with FWW. Transfer to toilet with SBA using grab bars. Pt able to complete toileting hygiene, requires CGA for balance during clothing management. Pt washed hand with wipes. Return to chair with assist to manage oxygen tubing. Pt sitting in chair with needs met after session. Functional [place] Measure 0=Not Assessed/NA 4=Minimal Assistance 1=Total Assistance 5=Supervision or Setup 2=Maximal Assistance 6=Modified [place] 3=Moderate Assistance 7=Complete IndependenceIRFPAI Quality Coding Scale 6 Independent with activity with or without an assistive device 5 Patient requires set up or clean up by helper. Patient completes activity by themselves 4 Supervision or touching assist (CGA). [place] provide cues , steadying assist 3 The helper provides less than half the effort to complete the activity 2 The helper provides more than half the effort to complete the activity 1 Dependent. The helper does all the effort to complete an activity 7 Patient refused to complete or attempt activity 9 The patient did not perform the activity before the current illness or injury 88 Not attempted due to Medical conditions or safety concerns Eating (FIM): 5 (by report) Toileting (FIM): 4 Toileting Hygiene (QC): 4 (CGA) Toilet/Commode Transfer (FIM): 5 Education OT Patient Education: Rehab process Teaching Recipient: Patient Teaching Methods: Discussion Response to Teaching: Verbalize Understanding OT Short Term Goals Short Term Goals Transfers (B,C,W/C) (FIM): 6 1=Demonstrate adherence to instructed precautions during ADL tasks. 2=Patient will verbalize/demonstrate understanding of assistive devices/ modifications for ADL. 3=Patient will improve strength/tolerance for activity to enable patient to perform ADL's. OT Half-Way Goals Electronic Repair Troubleshooter Goals Time Frame: Mar 04, 2017 Eating (FIM): 6 Eating (QC): 6 Groomin Oral Hygiene (QC): 6 Bathing(FIM): 5 Upper Body Dressing(FIM): 6 Lower Body Dressing(FIM): 6 Toileting(FIM): 6 Toilet/Commode Transfer(FIM): 6 Toilet/Commode Transfer (QC): 6 Additional Goals: 1-Demonstrate ADL Tasks, 2-Verbalize Understanding, 3- ImproveStrength/[place] 1=Demonstrate adherence to instructed precautions during ADL tasks. 2=Patient will verbalize/demonstrate understanding of assistive devices/ modifications for ADL. 3=Patient will improve strength/tolerance for activity to enable patient to perform ADL's. OT Education/Plan Problem List/Assessment Assessment: Decreased Activ Tolerance, Decreased UE Strength, Dependent Transfers, Impaired Self-Care Skills Pt to benefit from skilled OT intervention for ADL training, transfers, strengthening, and home safety education to improve level of independence and allow safe discharge home. Discharge Recommendations Plan/Recommendations: Continue POC Treatment Plan/Plan of Care Treatment,Training & Education: Yes Patient would benefit from OT for education, treatment and training to promote independence in ADL's, mobility, safety and/or upper extremity function for ADL' s. Plan of Care: ADL Retraining, Functional Mobility, UE Funct Exercise/Act Treatment Duration: Mar 04, 2017 Frequency: 5 times per week Estimated Hrs Per Day: .5 hour per day Agreement: Yes Rehab Potential: Fair Time/GCodes Start Time: 13:47 Stop Time: 14:10 Total Time Billed (hr/min): 23 Billed Treatment Time 1 visit, EVL(8minutes), ADL(15minutes) ARMIDA POWELL OT Feb 18, 2017 14:43
[2017-02-18 18:00] VITALS: BP 125/71
[2017-02-18] MEDS: CARVEDILOL 6.25 MG (COREG) TAB PO SCH (22:05)
[2017-02-18] MEDS: DOCUSATE SODIUM 100 MG (COLACE) CAP PO SCH (22:06)
[2017-02-18] MEDS: hydrALAZINE (APRESOLINE) 25 MG TAB PO SCH (22:08)
[2017-02-18] MEDS: HYDROcodone/APAP 10 MG/325 MG (LORTAB) TAB PO PRN (22:40)
[2017-02-19 01:45] VITALS: BP 109/55
[2017-02-19] MEDS: LEVOTHYROXINE 25 MCG (LEVOTHROID) TAB PO SCH (05:31)
[2017-02-19 06:15] VITALS: BP 127/76
[2017-02-19 06:34] LABS: MEAN PLATELET VOLUME 9.9 FL (7.4-10.4); RED BLOOD COUNT 3.19 10^6/uL (4.35-5.85); RED CELL DISTRIBUTION WIDTH 13.9 % (10.0-14.5); WHITE BLOOD COUNT 7.5 10^3/uL (4.3-11.0)
[2017-02-19 06:54] LABS: ALBUMIN 3.1 GM/DL (3.2-4.5); BILIRUBIN,TOTAL 0.6 MG/DL (0.1-1.0); CALCIUM 8.8 MG/DL (8.5-10.1); CREATININE SERUM 1.18 MG/DL (0.60-1.30); POTASSIUM 4.1 MMOL/L (3.6-5.0); TOTAL PROTEIN 5.6 GM/DL (6.4-8.2)
[2017-02-19] MEDS: RT-ALBUTEROL/IPRATROPIUM 3 ML (DUONEB) VIAL INH SCH ×4 (07:01→19:56)
--- NOTE | 2017-02-19 08:47 | Progress Note (SOAP) ---
Subjective Date Seen by Provider: Feb 19, 2017 Time Seen by Provider: 08:47 Subjective/Events-last exam PT REPORTS THAT HER RIGHT FINGERS WERE SWOLLEN YESTERDAY. SHE STATES THAT SHE IS NOTHAVING ANY CHEST PAIN OR SHORTNESS OF BREATH. Review of Systems General: Fatigue HEENT: No Head Aches Pulmonary: Dyspnea, No Cough Cardiovascular: No: Chest Pain Gastrointestinal: No: Nausea Neurological: Weakness Objective Exam Vital Signs Date Time Temp Pulse Resp B/P (MAP) Pulse Ox O2 Delivery O2 Flow Rate FiO2 02/19/17 07:02 93 Nasal Cannula 2.00 02/19/17 06:15 99.1 63 16 127/76 93 Nasal Cannula 2.00 02/18/17 19:17 92 Nasal Cannula 2.00 02/18/17 18:00 95.7 60 18 125/71 96 Nasal Cannula 2.00 02/18/17 14:41 92 Nasal Cannula 2.00 02/18/17 11:02 92 Nasal Cannula 2.00 Capillary Refill : Less Than 3 SecondsLess Than 3 Seconds General Appearance: No Apparent Distress, WD/WN HEENT: PERRL/EOMI, Pharynx Normal Neck: Full Range of Motion, Supple Respiratory: Chest Non Tender, Lungs Clear, Normal Breath Sounds Cardiovascular: Regular Rate, Rhythm Gastrointestinal: normal bowel sounds, non tender, soft, no organomegaly, no pulsatile mass Extremity: No Pedal Edema Neurologic/Psychiatric: Alert, Oriented x3, Normal Mood/Affect Skin: Warm/Dry Lymphatic: No Adenopathy Results Lab Laboratory Tests 02/18/17 14:05: Vancomycin Level Trough 24.8H 02/19/17 06:23: White Blood Count 7.5, Red Blood Count 3.19L, Hemoglobin 9.2L, Hematocrit 28L, Mean Corpuscular Volume 89, Mean Corpuscular Hemoglobin 29, Mean Corpuscular Hemoglobin Concent 32, Red Cell Distribution Width 13.9, Platelet Count 229, Mean Platelet Volume 9.9, Sodium Level 139, Potassium Level 4.1, Chloride Level 111H, Carbon Dioxide Level 20L, Anion Gap 8, Blood Urea Nitrogen 27H, Creatinine 1.18, Estimat Glomerular Filtration Rate 43, BUN/Creatinine Ratio 23 , Glucose Level 99, Calcium Level 8.8, Total Bilirubin 0.6, Aspartate Amino Transf (AST/SGOT) 13, Alanine Aminotransferase (ALT/SGPT) 10, Alkaline Phosphatase 46, Total Protein 5.6L, Albumin 3.1L Assessment/Plan Assessment/Plan Assess & Plan/Chief Complaint SEVERE SEPSIS - DUE TO COAGNEGATIVE STAPH - VANCOMYCIN IV TO COMPLETE 7 DAYS OF IV ANTIBIOTICS. - SHOULD BE DONE WITH ANTIBIOTICS ON THURSDAY. FALL ATHOME WITH RIGHT ULNAR FRACTURE - CONSULT TO DR. TAYLOR FOR CASTING. - CAST PLACED, PT TOLERATING CAST, SWELLING IN FINGERS IMPROVED. CHRONIC RENAL FAILURE - ON ADMISSION CREATININE ELEVATED, RENALLY ADJUST ALL MEDICATIONS, MONITOR CREATININE - PUSH FLUIDS. LEUKOCYTOSIS - IMPROVED. HYPERTENSION - CHRONIC AND USUALLY DIFFICULT TO CONTROL - RESUME HOME MEDICATIONS, APPRECIATE CARDIOLOGY CONSULTATION. HYPOXEMIA - ON OXYGEN - CONTINUE WITH WEAKING OF OXYGEN ABLE. RAH ANGELES MD Feb 19, 2017 08:47
[2017-02-19] MEDS ORDERED: [UNRECOGNIZED DRUG - OTHER] OS SCH (09:00)
[2017-02-19] MEDS ORDERED: TIMOLOL OS SCH (09:00)
[2017-02-19] MEDS ORDERED: BRIMONIDINE TARTRATE OS SCH (09:00)
[2017-02-19] MEDS: HYDROcodone/APAP 10 MG/325 MG (LORTAB) TAB PO PRN ×2 (09:12→23:58)
[2017-02-19] MEDS: TIMOLOL OS SCH (09:52)
[2017-02-19] MEDS: BRIMONIDINE TARTRATE OS SCH (09:52)
[2017-02-19] MEDS: [UNRECOGNIZED DRUG - OTHER] OS SCH (09:52)
[2017-02-19] MEDS: CARVEDILOL 6.25 MG (COREG) TAB PO SCH ×2 (09:53→21:59)
[2017-02-19] MEDS: DILTIAZEM 180 MG (CARDIZEM CD) CAP PO SCH (09:53)
[2017-02-19] MEDS: hydrALAZINE (APRESOLINE) 25 MG TAB PO SCH ×2 (09:53→21:59)
[2017-02-19] MEDS: DOCUSATE SODIUM 100 MG (COLACE) CAP PO SCH ×2 (09:53→21:59)
[2017-02-19] MEDS: FUROSEMIDE 40 MG (LASIX) TAB PO SCH (09:53)
[2017-02-19] MEDS: lisINopril 20 MG (ZESTRIL) TAB PO SCH (09:53)
[2017-02-19] MEDS: VITAMIN D3 1,000 UNITS (CHOLECALCIFEROL) TABLET PO SCH (09:53)
[2017-02-19] MEDS: ASPIRIN 81 MG CHEW (CHILDREN'S ASA) PO SCH (09:54)
--- NOTE | 2017-02-19 10:36 | Physical Therapy Daily Note ---
PT Daily Note-Current Subjective Agreeable to PT. No complaints. Pain Numeric Pain Scale: 0-No Pain Location: No Pain Reported Mental Status Patient Orientation: Person, Place, Time, Situation Transfers Functional [place] Measure 0=Not Assessed/NA 4=Minimal Assistance 1=Total Assistance 5=Supervision or Setup 2=Maximal Assistance 6=Modified [place] 3=Moderate Assistance 7=Complete IndependenceIRFPAI Quality Coding Scale 6 Independent with activity with or without an assistive device 5 Patient requires set up or clean up by helper. Patient completes activity by themselves 4 Supervision or touching assist (CGA). [place] provide cues , steadying assist 3 The helper provides less than half the effort to complete the activity 2 The helper provides more than half the effort to complete the activity 1 Dependent. The helper does all the effort to complete an activity 7 Patient refused to complete or attempt activity 9 The patient did not perform the activity before the current illness or injury 88 Not attempted due to Medical conditions or safety concerns Treatments Sit to stand with SBA and pt ambulated x 200 ft with FWW with SBA. Pt then performed B LE ther ex in sitting x 15 for AP, LAQ, Hip flexion; and reclined for heel slides, SAQ, hip abduct and QS. All exer performed for LE strength to improve functional transfers and gait. Pt up in chiar post treatment with needs met and oxygen in situ. Assessment Current Status: Good Progress Progressing towards goals well. Pleasant, cooperative and motivated. PT Short Term Goals Short Term Goals Time Frame: Feb 25, 2017 Transfers (B,C,W/C) (FIM): 6 Gait (FIM): 6 Gait Distance Comment: 300' Gait Assistive Device: Cane Single Point PT Plan Problem List Problem List: Activity Tolerance, Functional Strength, Safety Treatment/Plan Treatment Plan: Continue Plan of Care Treatment Plan: Bed Mobility, Education, Functional Activity [place], Functional Strength, Gait, Safety, Therapeutic Exercise, Transfers Treatment Duration: Feb 25, 2017 Frequency: 6 times per week Estimated Hrs Per Day: .25 hour per day (15-30') Patient and/or Family Agrees t: Yes Safety Risks/Education Patient Education: Safety Issues Teaching Recipient: Patient Teaching Methods: Discussion Response to Teaching: Verbalize Understanding Discharge Recommendations Plan Post treatment, sW approached this therapist and asked about the need for a platform walker. Provided a platform walker for the patient and will assess if she would feel more comfortable using a platform versus a walker without a platform attachment. Time/GCodes Time In: 930 Time Out: 1005 Total Billed Treatment Time: 35 Total Billed Treatment visit GT 15 EX 20 PATRICIA GUTIERREZ PT Feb 19, 2017 10:36
--- NOTE | 2017-02-19 13:33 | Occupational Ther Daily Note ---
OT Current Status-Daily Note Subjective No pain reported. Appearance Pt. up in chair. States that she just had a shower. Agrees to walk with OT, as it needs to be decided if she needs a platform walker or not. Mental Status/Objective Patient Orientation: Person, Place, Time Functional [place] Measure 0=Not Assessed/NA 4=Minimal Assistance 1=Total Assistance 5=Supervision or Setup 2=Maximal Assistance 6=Modified [place] 3=Moderate Assistance 7=Complete [place] ADL-Treatment Functional [place] Measure 0=Not Assessed/NA 4=Minimal Assistance 1=Total Assistance 5=Supervision or Setup 2=Maximal Assistance 6=Modified [place] 3=Moderate Assistance 7=Complete IndependenceIRFPAI Quality Coding Scale 6 Independent with activity with or without an assistive device 5 Patient requires set up or clean up by helper. Patient completes activity by themselves 4 Supervision or touching assist (CGA). [place] provide cues , steadying assist 3 The helper provides less than half the effort to complete the activity 2 The helper provides more than half the effort to complete the activity 1 Dependent. The helper does all the effort to complete an activity 7 Patient refused to complete or attempt activity 9 The patient did not perform the activity before the current illness or injury 88 Not attempted due to Medical conditions or safety concerns Transfers (B, C, W/C) (FIM): 5 (SBA to ambulate with platform walker. Please see note below.) Other Treatment Pt. already dressed. Agreed to try the platform walker to see if she liked it better than a regular walker, as she has a cast on right UE from ulnar fx. Pt. did ambulate with platform walker with SBA approximately 300 ft. Pt. states that she is not really sure that she notices a difference between the platform walker and the regular walker. Pt. states, "I would like to use it a few more times before I decide." Pt. is educated to "wiggle" her fingers on right side as she has swelling in right fingers. Pt. attempts to doff socks for practice. Is able to doff right sock but is unable to doff left. Unable to don socks. Pt. states that she usually wears slip on slippers at home. Family member in room. Pt. is asked if she will have assist at home, or if she has a plan. She states that she "thinks she will" and that the manager social responsibility has spoke to her about a plan for help at home. However, even with prompting, pt. does not elaborate. Continues to state that she will "be okay." OT will continue to work with pt. to increase independence as she can tolerate. Education OT Patient Education: Correct positioning, Modified ADL techniques, Progress toward Goal/Update tx plan, Purpose of tx/functional activities, Reviewed precautions, Rehab process, Transfer techniques Teaching Recipient: Patient Teaching Methods: Demonstration, Discussion Response to Teaching: Verbalize Understanding, Return Demonstration OT Short Term Goals Short Term Goals Transfers (B,C,W/C) (FIM): 6 1=Demonstrate adherence to instructed precautions during ADL tasks. 2=Patient will verbalize/demonstrate understanding of assistive devices/ modifications for ADL. 3=Patient will improve strength/tolerance for activity to enable patient to perform ADL's. OT Prison Goals Supervisor Plastic Sheets Goals Time Frame: Mar 04, 2017 Eating (FIM): 6 Eating (QC): 6 Groomin Oral Hygiene (QC): 6 Bathing(FIM): 5 Upper Body Dressing(FIM): 6 Lower Body Dressing(FIM): 6 Toileting(FIM): 6 Toilet/Commode Transfer(FIM): 6 Toilet/Commode Transfer (QC): 6 Additional Goals: 1-Demonstrate ADL Tasks, 2-Verbalize Understanding, 3- ImproveStrength/[place] 1=Demonstrate adherence to instructed precautions during ADL tasks. 2=Patient will verbalize/demonstrate understanding of assistive devices/ modifications for ADL. 3=Patient will improve strength/tolerance for activity to enable patient to perform ADL's. OT Education/Plan Problem List/Assessment Assessment: Decreased Activ Tolerance, Impaired I ADL's, Impaired Self-Care Skills Pt to benefit from skilled OT intervention for ADL training, transfers, strengthening, and home safety education to improve level of independence and allow safe discharge home. Discharge Recommendations Plan/Recommendations: Continue POC Therapy D/C Recommendations: Home w/ Family Support, Occupational Therapy Home Care Treatment Plan/Plan of Care Treatment,Training & Education: Yes Patient would benefit from OT for education, treatment and training to promote independence in ADL's, mobility, safety and/or upper extremity function for ADL' s. Plan of Care: ADL Retraining, Functional Mobility, UE Funct Exercise/Act Treatment Duration: Mar 04, 2017 Frequency: 5 times per week Estimated Hrs Per Day: .25 hour per day Agreement: Yes Rehab Potential: Fair Time/GCodes Start Time: 11:15 Stop Time: 11:35 Total Time Billed (hr/min): 20 Billed Treatment Time 1, FA x 1 MCKENZIE TODD OT Feb 19, 2017 13:33
[2017-02-19] MEDS ORDERED: TROUGH ORDER-PHARMACY XX NR (14:00)
[2017-02-19] MEDS: VANCOMYCIN INJECTION 1,000 MG in NS (IVPB) 250 ML IV SCH (15:48)
[2017-02-19 17:58] VITALS: BP 147/70
[2017-02-20 05:57] VITALS: BP 171/70
[2017-02-20] MEDS: LEVOTHYROXINE 25 MCG (LEVOTHROID) TAB PO SCH (06:30)
[2017-02-20] MEDS: NITROGLYCERIN 2% OINT 1 GM UNIT DOSE PACKET TOP PRN ×2 (06:31→18:40)
[2017-02-20] MEDS: RT-ALBUTEROL/IPRATROPIUM 3 ML (DUONEB) VIAL INH SCH ×4 (06:37→18:36)
[2017-02-20] MEDS: DOCUSATE SODIUM 100 MG (COLACE) CAP PO SCH ×2 (08:47→20:18)
[2017-02-20] MEDS: CARVEDILOL 6.25 MG (COREG) TAB PO SCH ×2 (08:47→20:18)
[2017-02-20] MEDS: BRIMONIDINE TARTRATE OS SCH (08:47)
[2017-02-20] MEDS: TIMOLOL OS SCH (08:47)
[2017-02-20] MEDS: hydrALAZINE (APRESOLINE) 25 MG TAB PO SCH ×2 (08:47→20:18)
[2017-02-20] MEDS: ASPIRIN 81 MG CHEW (CHILDREN'S ASA) PO SCH (08:47)
[2017-02-20] MEDS: [UNRECOGNIZED DRUG - OTHER] OS SCH (08:47)
[2017-02-20] MEDS: DILTIAZEM 180 MG (CARDIZEM CD) CAP PO SCH (08:48)
[2017-02-20] MEDS: VITAMIN D3 1,000 UNITS (CHOLECALCIFEROL) TABLET PO SCH (08:48)
[2017-02-20] MEDS: FUROSEMIDE 40 MG (LASIX) TAB PO SCH (08:48)
[2017-02-20] MEDS: lisINopril 20 MG (ZESTRIL) TAB PO SCH (08:48)
--- NOTE | 2017-02-20 09:19 | Progress Note (SOAP) ---
Subjective Date Seen by Provider: Feb 20, 2017 Time Seen by Provider: 09:19 Subjective/Events-last exam PT REPORTS THAT SHE IS HAVING LESS PAIN IN HER RIGHT ARM, HER SWELLING IN HER HAND IS BETTER, SHE HAS NOT HAD A BOWEL MOVEMENT BUT FEELS LIKE SHE MAY HAVE ONE LATER TODAY. Review of Systems General: Fatigue Pulmonary: Dyspnea, No Cough Cardiovascular: No: Chest Pain Gastrointestinal: No: Nausea Genitourinary: No Dysuria Neurological: Weakness Objective Exam Vital Signs Date Time Temp Pulse Resp B/P (MAP) Pulse Ox O2 Delivery O2 Flow Rate FiO2 02/20/17 06:37 87 Room Air 02/20/17 05:57 99.0 69 18 171/70 95 Nasal Cannula 2.00 02/19/17 19:56 90 Room Air 02/19/17 17:58 98.3 69 19 147/70 92 Nasal Cannula 2.00 02/19/17 14:51 95 Room Air 02/19/17 11:11 96 Nasal Cannula 1.00 Capillary Refill : Less Than 3 SecondsLess Than 3 Seconds General Appearance: No Apparent Distress, WD/WN HEENT: PERRL/EOMI Neck: Full Range of Motion, Supple Respiratory: Chest Non Tender, Lungs Clear, Normal Breath Sounds Cardiovascular: Regular Rate, Rhythm Gastrointestinal: normal bowel sounds, non tender, soft Extremity: Normal Capillary Refill, No Pedal Edema Neurologic/Psychiatric: Alert, Oriented x3, No Motor/Sensory Deficits, Normal Mood/Affect Skin: Warm/Dry Lymphatic: No Adenopathy (RIGHT ARM IN PINK CAST) Results Lab Laboratory Tests 02/19/17 14:35: Vancomycin Level Trough 17.2 Assessment/Plan Assessment/Plan Assess & Plan/Chief Complaint SEVERE SEPSIS - DUE TO COAGNEGATIVE STAPH - VANCOMYCIN IV TO COMPLETE 7 DAYS OF IV ANTIBIOTICS. - SHOULD BE DONE WITH ANTIBIOTICS ON THURSDAY. FALL ATHOME WITH RIGHT ULNAR FRACTURE - CONSULT TO DR. TAYLOR FOR CASTING. - CAST PLACED, PT TOLERATING CAST, SWELLING IN FINGERS IMPROVED. CHRONIC RENAL FAILURE - ON ADMISSION CREATININE ELEVATED, RENALLY ADJUST ALL MEDICATIONS, MONITOR CREATININE - PUSH FLUIDS. LEUKOCYTOSIS - IMPROVED. HYPERTENSION - CHRONIC AND USUALLY DIFFICULT TO CONTROL - RESUME HOME MEDICATIONS, APPRECIATE CARDIOLOGY CONSULTATION. HYPOXEMIA - ON OXYGEN - CONTINUE WITH WEAKING OF OXYGEN ABLE. RAH ANGELES MD Feb 20, 2017 09:19
--- NOTE | 2017-02-20 12:44 | Physical Therapy Daily Note ---
PT Daily Note-Current Subjective Agrees to PT. Reports she may discharge on Thursday. Unsure if she like the platform walker or not. Pain Numeric Pain Scale: 0-No Pain Location: No Pain Reported Mental Status Patient Orientation: Person, Place, Time, Situation Attachments: Oxygen Transfers Functional [place] Measure 0=Not Assessed/NA 4=Minimal Assistance 1=Total Assistance 5=Supervision or Setup 2=Maximal Assistance 6=Modified [place] 3=Moderate Assistance 7=Complete IndependenceIRFPAI Quality Coding Scale 6 Independent with activity with or without an assistive device 5 Patient requires set up or clean up by helper. Patient completes activity by themselves 4 Supervision or touching assist (CGA). [place] provide cues , steadying assist 3 The helper provides less than half the effort to complete the activity 2 The helper provides more than half the effort to complete the activity 1 Dependent. The helper does all the effort to complete an activity 7 Patient refused to complete or attempt activity 9 The patient did not perform the activity before the current illness or injury 88 Not attempted due to Medical conditions or safety concerns Sit to/from Stand: 5 Chair/Yey-iw-Msfdh Xfer(QC): 5 Sit to stand with SBA and no safety concerns; pt report she is able to get in/ out of bed without assist. Gait Training Does the Patient Walk?: Yes Gait (FIM): 5 Distance (FIM): 3=150 ft Distance: 350 ft Walk 50 ft with 2 Turns(QC): 5 Walk 150 ft (QC): 5 Gait Level of Assist: 5 Gait Assistive Device: FWW (platform) Pt ambulated with fWW platform with sBA and discussed the pros and cons on use of platform. Pt reports she will decide today if she wants a platform or not. Pt is safe ambulating with the platform walker as well as without. Exercises Supine Ex: Ankle pumps, Heel Slides, Short Arc Quads Supine Reps: 15 Seated Therapy Exercises: Ankle pumps, Long arc quads, Hip flexion, Hip abd/add Seated Reps: 15 Ther ex performed to improve functional strength and mobility with safety at home. Assessment Current Status: Excellent Progress Pt is safe with gait and transfers. As far as platform or not, she is fine to use either. The platform may be more comfortable and easier to dry goods clerk due to cast on the right, but she is able to use a walker without the platform. PT Short Term Goals Short Term Goals Time Frame: Feb 25, 2017 Transfers (B,C,W/C) (FIM): 6 Gait (FIM): 6 Gait Distance Comment: 300' Gait Assistive Device: Cane Single Point PT Plan Problem List Problem List: Activity Tolerance, Functional Strength, Safety Treatment/Plan Treatment Plan: Continue Plan of Care Treatment Plan: Bed Mobility, Education, Functional Activity [place], Functional Strength, Gait, Safety, Therapeutic Exercise, Transfers Treatment Duration: Feb 25, 2017 Frequency: 6 times per week Estimated Hrs Per Day: .25 hour per day (15-30') Patient and/or Family Agrees t: Yes Safety Risks/Education Patient Education: Safety Issues Teaching Recipient: Patient, Family Teaching Methods: Discussion Response to Teaching: Verbalize Understanding Discharge Recommendations Plan Possible dc on Thursday Therapy D/C Recommendations: Physical Therapy Home Care Time/GCodes Time In: 953 Time Out: 1016 Total Billed Treatment Time: 23 Total Billed Treatment visit EX 10 Gt 13 PATRICIA GUTIERREZ PT Feb 20, 2017 12:44
--- NOTE | 2017-02-20 15:50 | Occupational Ther Daily Note ---
OT Current Status-Daily Note Subjective Pt sitting up in recliner and alert. Pt agreed to therapy. No c/o pain at this time. Mental Status/Objective Patient Orientation: Person, Place, Time, Situation Functional [place] Measure 0=Not Assessed/NA 4=Minimal Assistance 1=Total Assistance 5=Supervision or Setup 2=Maximal Assistance 6=Modified [place] 3=Moderate Assistance 7=Complete [place] Attachments: IV, Oxygen ADL-Treatment Functional [place] Measure 0=Not Assessed/NA 4=Minimal Assistance 1=Total Assistance 5=Supervision or Setup 2=Maximal Assistance 6=Modified [place] 3=Moderate Assistance 7=Complete IndependenceIRFPAI Quality Coding Scale 6 Independent with activity with or without an assistive device 5 Patient requires set up or clean up by helper. Patient completes activity by themselves 4 Supervision or touching assist (CGA). [place] provide cues , steadying assist 3 The helper provides less than half the effort to complete the activity 2 The helper provides more than half the effort to complete the activity 1 Dependent. The helper does all the effort to complete an activity 7 Patient refused to complete or attempt activity 9 The patient did not perform the activity before the current illness or injury 88 Not attempted due to Medical conditions or safety concerns Other Treatment Pt completed 5 UE exercises against gravity 2 sets 10 reps. Pt tolerated, but fatigued after exercises. Discussed with pt one handed strategies to don socks. Pt verbalized understanding, did not want to attempt to demonstrate understanding due to fatigue. After therapy, pt sitting in recliner with call light/phone in reach. All needs met in room. OT Short Term Goals Short Term Goals Transfers (B,C,W/C) (FIM): 6 1=Demonstrate adherence to instructed precautions during ADL tasks. 2=Patient will verbalize/demonstrate understanding of assistive devices/ modifications for ADL. 3=Patient will improve strength/tolerance for activity to enable patient to perform ADL's. OT Commission Broker Goals Commission Broker Goals Time Frame: Mar 04, 2017 Eating (FIM): 6 Eating (QC): 6 Groomin Oral Hygiene (QC): 6 Bathing(FIM): 5 Upper Body Dressing(FIM): 6 Lower Body Dressing(FIM): 6 Toileting(FIM): 6 Toilet/Commode Transfer(FIM): 6 Toilet/Commode Transfer (QC): 6 Additional Goals: 1-Demonstrate ADL Tasks, 2-Verbalize Understanding, 3- ImproveStrength/[place] 1=Demonstrate adherence to instructed precautions during ADL tasks. 2=Patient will verbalize/demonstrate understanding of assistive devices/ modifications for ADL. 3=Patient will improve strength/tolerance for activity to enable patient to perform ADL's. OT Education/Plan Problem List/Assessment Pt to benefit from skilled OT intervention for ADL training, transfers, strengthening, and home safety education to improve level of independence and allow safe discharge home. Discharge Recommendations Plan/Recommendations: Continue POC Treatment Plan/Plan of Care Patient would benefit from OT for education, treatment and training to promote independence in ADL's, mobility, safety and/or upper extremity function for ADL' s. Plan of Care: ADL Retraining, Functional Mobility, UE Funct Exercise/Act Treatment Duration: Mar 04, 2017 Frequency: 5 times per week Estimated Hrs Per Day: .25 hour per day Agreement: Yes Rehab Potential: Fair Time/GCodes Start Time: 14:50 Stop Time: 15:05 Total Time Billed (hr/min): 15 Billed Treatment Time 1 visit-EX 1 (15 min) PATRICIA ARCOS Feb 20, 2017 15:50
[2017-02-20] MEDS: HYDROcodone/APAP 10 MG/325 MG (LORTAB) TAB PO PRN (15:58)
[2017-02-20 18:00] VITALS: BP 177/76
[2017-02-20 19:30] VITALS: BP 175/79
[2017-02-20 21:20] VITALS: BP 186/80
[2017-02-20] MEDS ORDERED: FUROSEMIDE 40 MG/4 ML INJ (LASIX) IVP ONE (21:30)
[2017-02-21 00:37] VITALS: BP 139/65
[2017-02-21] MEDS: HYDROcodone/APAP 10 MG/325 MG (LORTAB) TAB PO PRN ×2 (05:42→17:10)
[2017-02-21] MEDS: LEVOTHYROXINE 25 MCG (LEVOTHROID) TAB PO SCH (05:43)
[2017-02-21 06:00] VITALS: BP 173/73
[2017-02-21] MEDS: NITROGLYCERIN 2% OINT 1 GM UNIT DOSE PACKET TOP PRN (06:26)
[2017-02-21 06:35] LABS: MEAN PLATELET VOLUME 10.1 FL (7.4-10.4); RED BLOOD COUNT 3.22 10^6/uL (4.35-5.85); RED CELL DISTRIBUTION WIDTH 14.2 % (10.0-14.5); WHITE BLOOD COUNT 8.9 10^3/uL (4.3-11.0)
[2017-02-21 06:49] LABS: POTASSIUM 4.2 MMOL/L (3.6-5.0)
[2017-02-21 06:50] LABS: CALCIUM 8.6 MG/DL (8.5-10.1); CREATININE SERUM 1.34 MG/DL (0.60-1.30)
[2017-02-21] MEDS: RT-ALBUTEROL/IPRATROPIUM 3 ML (DUONEB) VIAL INH SCH ×4 (07:01→19:55)
[2017-02-21] MEDS: cloNIDine 0.1 MG (CATAPRES) TAB PO PRN ×2 (07:37→17:41)
[2017-02-21] MEDS: BRIMONIDINE TARTRATE OS SCH (09:18)
[2017-02-21] MEDS: TIMOLOL OS SCH (09:18)
[2017-02-21] MEDS: [UNRECOGNIZED DRUG - OTHER] OS SCH (09:18)
[2017-02-21] MEDS: FUROSEMIDE 40 MG (LASIX) TAB PO SCH (09:18)
[2017-02-21] MEDS: CARVEDILOL 6.25 MG (COREG) TAB PO SCH ×2 (09:19→20:07)
[2017-02-21] MEDS: lisINopril 20 MG (ZESTRIL) TAB PO SCH (09:19)
[2017-02-21] MEDS: DILTIAZEM 180 MG (CARDIZEM CD) CAP PO SCH (09:19)
[2017-02-21] MEDS: hydrALAZINE (APRESOLINE) 25 MG TAB PO SCH ×2 (09:19→20:07)
[2017-02-21] MEDS: DOCUSATE SODIUM 100 MG (COLACE) CAP PO SCH ×2 (09:19→20:07)
[2017-02-21] MEDS: ASPIRIN 81 MG CHEW (CHILDREN'S ASA) PO SCH (09:19)
[2017-02-21] MEDS: VITAMIN D3 1,000 UNITS (CHOLECALCIFEROL) TABLET PO SCH (09:21)
--- NOTE | 2017-02-21 11:02 | Physical Therapy Daily Note ---
PT Daily Note-Current Subjective Patient in recliner pre tx, agrees to PT, has 4/10 pain in her right arm. Respiratory therapy wants to monitor patient O2 levels while she ambulates on 2L of O2 nasal canula. Appearance Patient in recliner post tx with nurse call, phone, tray, family in the room. Mental Status Patient Orientation: Person, Place, Situation Attachments: Oxygen cast right arm Transfers Functional [place] Measure 0=Not Assessed/NA 4=Minimal Assistance 1=Total Assistance 5=Supervision or Setup 2=Maximal Assistance 6=Modified [place] 3=Moderate Assistance 7=Complete IndependenceIRFPAI Quality Coding Scale 6 Independent with activity with or without an assistive device 5 Patient requires set up or clean up by helper. Patient completes activity by themselves 4 Supervision or touching assist (CGA). [place] provide cues , steadying assist 3 The helper provides less than half the effort to complete the activity 2 The helper provides more than half the effort to complete the activity 1 Dependent. The helper does all the effort to complete an activity 7 Patient refused to complete or attempt activity 9 The patient did not perform the activity before the current illness or injury 88 Not attempted due to Medical conditions or safety concerns Transfers (B, C, W/C) (FIM): 5 Sit to/from Stand: 5 Gait Training Gait (FIM): 5 Distance: 300' Gait Level of Assist: 5 Gait Persons Needed: 1 Gait Assistive Device: Walker Platform no LOB, but patient takes very small steps, no a festinating gait but close, O2 stayed at 92% and HR was 66bpm Treatments transfers, ambulation Assessment Current Status: Fair Progress improving endurance PT Short Term Goals Short Term Goals Time Frame: Feb 25, 2017 Transfers (B,C,W/C) (FIM): 6 Gait (FIM): 6 Gait Distance Comment: 300' Gait Assistive Device: Cane Single Point PT Plan Problem List Problem List: Activity Tolerance, Functional Strength, Safety, Balance, Gait, Transfer Treatment/Plan Treatment Plan: Continue Plan of Care Treatment Plan: Bed Mobility, Education, Functional Activity [place], Functional Strength, Gait, Safety, Therapeutic Exercise, Transfers Treatment Duration: Feb 25, 2017 Frequency: 6 times per week Estimated Hrs Per Day: .25 hour per day (15-30') Patient and/or Family Agrees t: Yes Safety Risks/Education Patient Education: Gait Training, Transfer Techniques, Correct Positioning, Safety Issues Teaching Recipient: Patient Teaching Methods: Demonstration, Discussion Response to Teaching: Reinforcement Needed Time/GCodes Time In: 1045 Time Out: 1055 Total Billed Treatment Time: 10 Total Billed Treatment 1 visit GT 10' GILL LOZOYA PT Feb 21, 2017 11:01
[2017-02-21 16:00] VITALS: BP 170/75
[2017-02-21] MEDS: VANCOMYCIN INJECTION 1,000 MG in NS (IVPB) 250 ML IV SCH (16:02)
[2017-02-21 18:00] VITALS: BP 188/83
[2017-02-21 19:31] VITALS: BP 146/67
[2017-02-21 23:57] VITALS: BP 125/61
[2017-02-22 04:00] VITALS: BP_SYST 131; BP_DIAS 61; BP_DIAS 84
[2017-02-22 06:00] VITALS: BP 148/62
[2017-02-22] MEDS: HYDROcodone/APAP 10 MG/325 MG (LORTAB) TAB PO PRN (06:19)
[2017-02-22] MEDS: LEVOTHYROXINE 25 MCG (LEVOTHROID) TAB PO SCH (06:19)
[2017-02-22] MEDS: RT-ALBUTEROL/IPRATROPIUM 3 ML (DUONEB) VIAL INH SCH ×4 (06:35→19:35)
[2017-02-22] MEDS: [UNRECOGNIZED DRUG - OTHER] OS SCH (08:12)
[2017-02-22] MEDS: TIMOLOL OS SCH (08:12)
[2017-02-22] MEDS: BRIMONIDINE TARTRATE OS SCH (08:12)
[2017-02-22] MEDS: DILTIAZEM 180 MG (CARDIZEM CD) CAP PO SCH (08:12)
[2017-02-22] MEDS: hydrALAZINE (APRESOLINE) 25 MG TAB PO SCH ×2 (08:13→22:16)
[2017-02-22] MEDS: CARVEDILOL 6.25 MG (COREG) TAB PO SCH ×2 (08:13→22:16)
[2017-02-22] MEDS: DOCUSATE SODIUM 100 MG (COLACE) CAP PO SCH ×2 (08:13→22:16)
[2017-02-22] MEDS: lisINopril 20 MG (ZESTRIL) TAB PO SCH (08:15)
[2017-02-22] MEDS: ASPIRIN 81 MG CHEW (CHILDREN'S ASA) PO SCH (08:15)
[2017-02-22] MEDS: FUROSEMIDE 40 MG (LASIX) TAB PO SCH (08:15)
[2017-02-22] MEDS: VITAMIN D3 1,000 UNITS (CHOLECALCIFEROL) TABLET PO SCH (08:16)
[2017-02-22] MEDS ORDERED: MILK OF MAGNESIA 400 MG/5 ML 30 ML UDC PO PRN (15:45)
[2017-02-22 16:30] VITALS: BP_SYST 195; BP_SYST 198; BP_DIAS 78; BP_DIAS 85
[2017-02-22] MEDS: cloNIDine 0.1 MG (CATAPRES) TAB PO PRN (16:35)
[2017-02-22 18:21] VITALS: BP 185/84
[2017-02-22 20:00] VITALS: BP 177/74
[2017-02-23] VITALS: BP 128/59
[2017-02-23 04:00] VITALS: BP 130/60
[2017-02-23] MEDS: LEVOTHYROXINE 25 MCG (LEVOTHROID) TAB PO SCH (05:50)
[2017-02-23 06:00] VITALS: BP 149/63
[2017-02-23 06:20] LABS: MEAN PLATELET VOLUME 9.6 FL (7.4-10.4); RED BLOOD COUNT 3.21 10^6/uL (4.35-5.85); RED CELL DISTRIBUTION WIDTH 14.4 % (10.0-14.5); WHITE BLOOD COUNT 7.2 10^3/uL (4.3-11.0)
[2017-02-23 06:41] LABS: CALCIUM 8.4 MG/DL (8.5-10.1); CREATININE SERUM 1.54 MG/DL (0.60-1.30); POTASSIUM 4.4 MMOL/L (3.6-5.0)
[2017-02-23] MEDS: RT-ALBUTEROL/IPRATROPIUM 3 ML (DUONEB) VIAL INH SCH ×2 (07:28→11:00)
[2017-02-23 08:00] VITALS: BP 161/70
[2017-02-23] MEDS: DILTIAZEM 180 MG (CARDIZEM CD) CAP PO SCH (09:24)
[2017-02-23] MEDS: hydrALAZINE (APRESOLINE) 25 MG TAB PO SCH (09:24)
[2017-02-23] MEDS: DOCUSATE SODIUM 100 MG (COLACE) CAP PO SCH (09:25)
[2017-02-23] MEDS: lisINopril 20 MG (ZESTRIL) TAB PO SCH (09:25)
[2017-02-23] MEDS: CARVEDILOL 6.25 MG (COREG) TAB PO SCH (09:25)
[2017-02-23] MEDS: ASPIRIN 81 MG CHEW (CHILDREN'S ASA) PO SCH (09:26)
[2017-02-23] MEDS: FUROSEMIDE 40 MG (LASIX) TAB PO SCH (09:26)
[2017-02-23] MEDS: TIMOLOL OS SCH (09:33)
[2017-02-23] MEDS: VITAMIN D3 1,000 UNITS (CHOLECALCIFEROL) TABLET PO SCH (09:33)
[2017-02-23] MEDS: [UNRECOGNIZED DRUG - OTHER] OS SCH (09:33)
[2017-02-23] MEDS: BRIMONIDINE TARTRATE OS SCH (09:33)
[2017-02-23] MEDS ORDERED: ALPR0.5T7 PO (09:48)
[2017-02-23] MEDS ORDERED: HYDR-3820 PO (09:48)
--- NOTE | 2017-02-23 09:50 | Discharge Summary ---
Diagnosis/Chief Complaint Date of Admission Feb 18, 2017 at 09:23 Date of Discharge Discharge Date: Feb 23, 2017 Discharge Time: 1100 Discharge Summary Discharge Physical Examination Allergies: Coded Allergies: Penicillins (Verified Allergy, Unknown, 06/19/08) Sulfa (Sulfonamide Antibiotics) (Verified Allergy, Unknown, 06/19/08) Vitals & I&Os Vital Signs Date Time Temp Pulse Resp B/P (MAP) Pulse Ox O2 Delivery O2 Flow Rate FiO2 02/23/17 07:28 94 Nasal Cannula 1.00 02/23/17 06:00 98.4 68 18 149/63 Hospital Course Pending Labs Laboratory Tests 02/23/17 06:06: White Blood Count 7.2, Red Blood Count 3.21, Hemoglobin 9.1, Hematocrit 29, Mean Corpuscular Volume 89, Mean Corpuscular Hemoglobin 28, Mean Corpuscular Hemoglobin Concent 32, Red Cell Distribution Width 14.4, Platelet Count 297, Mean Platelet Volume 9.6, Sodium Level 139, Potassium Level 4.4, Chloride Level 106, Carbon Dioxide Level 25, Anion Gap 8, Blood Urea Nitrogen 27, Creatinine 1.54, Estimat Glomerular Filtration Rate 32, BUN/Creatinine Ratio 18, Glucose Level 96, Calcium Level 8.4 Discharge Instructions to patient/family Please see electronic discharge instructions given to patient. Discharge Medications Reviewed and agree with Discharge Medication list on patient's Discharge Instruction sheet RAH ANGELES MD Feb 23, 2017 09:50
--- NOTE | 2017-02-23 09:50 | D/C HH Face to Face Order ---
D/C Face to Face Orders Instructions for Patient Patient Instructions/FollowUp: follow up [facility] [address] mane's office in 2 weeks Physician to follow Patient: [facility] Discharge Diet for Home: Regular Diet Patient Data-Allergies,Ht & Wt Patient Allergies: Coded Allergies: Penicillins (Verified Allergy, Unknown, 06/19/08) Sulfa (Sulfonamide Antibiotics) (Verified Allergy, Unknown, 06/19/08) Height (Feet): 5 Height (Inches): 5.00 Weight (Pounds): 173 Weight (Ounces): 6.0 Home Health Need/Face to Face Date of Face to Face: Feb 23, 2017 Clinical Findings: Generalized weakness and fatigue, Muscle weakness, Unsteady gait I have seen Pt [id number]: Yes Discharged To: Home Diagnosis/Conditions: right ulnar fracture fall at home weakness hypertension Problems/Diagnosis/Condition: Patient is Homebound due to: Muscle weakness Homebound Status Due to the above stated illness, injury or surgical procedure (medical condition or diagnosis) and associated clinical findings, the patient is homebound because of his/her inability to leave home except with aid of a supportive device and/or person AND leaving the home requires a considerable and taxing effort or is medically contraindicated. Pt req the following assistanc: Cane Home Health Nursing Orders Home Health Services Order: Nursing Services, Physical Therapy-Evaluate & Treat home safety eval Home Health Infusion Therapy Line Type: PICC Site Location: Arm-Upper Certify Stmt I certify that this patient is under my care and that I, a nurse practitioner or a physician; a registered nurse first assistant working with me, had a face to face encounter that - meets the physician face to face encounter requirements with this patient as dated. RAH ANGELES MD Feb 23, 2017 09:50
--- NOTE | 2017-02-23 13:25 | Therapy Team Discharge Summary ---
Therapy Discharge Summary Discharge Recommendations Date of Discharge Therapy D/C Recommendations: Physical Therapy Home Care Physical Therapy Patient to dismiss to home with family and home health intervention. Patient is currently at a modified independent LOF with all gross motor skills safely and is utilizing a FWW for safe ambulation. Patient attained all functional goals. Occupational Therapy Decreased Activ Tolerance, Impaired I ADL's, Impaired Self-Care Skills PT Jail Goals Signal Operator Technical Goals PT Jail Goals Time Frame: Feb 25, 2017 Transfers (B,C,W/C) (FIM): 6 (met 02/21/17) Sit to Lying (QC): 6 (met 02/21/17) Lying-Sitting on Side/Bed(QC): 6 (met 02/21/17) Sit to Stand (QC): 6 (met 02/21/17) Rollin (met 02/21/17) Chair/Sge-zz-Qjmhl Xfer(QC): 6 (met 02/21/17) Does the Patient Walk: Yes Gait (FIM): 6 (met 02/21/17) Gait distance (FIM): 3=150 ft Distance: 300' Walk 50ft with 2 Turns (QC): 6 (met 02/21/17) Walk 150 ft (QC): 6 (met 02/21/17) Gait Level of Assist: 6 (met 02/21/17) Gait Assistive Device: FWW, Cane Single Point OT Signal Operator Technical Goals Jail Goals Time Frame: Mar 04, 2017 Eating (FIM): 6 Eating (QC): 6 Groomin Oral Hygiene (QC): 6 Bathing(FIM): 5 Upper Body Dressing(FIM): 6 Lower Body Dressing(FIM): 6 Toileting(FIM): 6 Toilet/Commode Transfer(FIM): 6 Toilet/Commode Transfer (QC): 6 Additional Goals: 1-Demonstrate ADL Tasks, 2-Verbalize Understanding, 3- ImproveStrength/Austen 1=Demonstrate adherence to instructed precautions during ADL tasks. 2=Patient will verbalize/demonstrate understanding of assistive devices/ modifications for ADL. 3=Patient will improve strength/tolerance for activity to enable patient to perform ADL's. CHRISTIANO FRANCIS PT Feb 23, 2017 13:25
[2017-02-23] MEDS: HYDROcodone/APAP 10 MG/325 MG (LORTAB) TAB PO PRN (13:50)
[2017-02-23] MEDS ORDERED: TROUGH ORDER-PHARMACY XX NR (14:00)
--- NOTE | 2017-02-24 11:51 | Therapy Team Discharge Summary ---
Therapy Discharge Summary Discharge Recommendations Date of Discharge Feb 23, 2017 at 14:40 Therapy D/C Recommendations: Physical Therapy Home Care Occupational Therapy Pt admitted to [facility] status following acute hospitalization for sepsis/acute renal failure and right distal ulna fracture. On admission pt required set up for eating, SBA for transfers, and min assist for toileting. Skilled OT intervention focused on ADL training, transfers, and strengthening. Pt progressed with therapy, but did not meet all OT LTG. Pt discharged home with family support. D/c SWB OT at this time. Decreased Activ Tolerance, Impaired I ADL's, Impaired Self-Care Skills PT Snf Goals Snf Goals PT Snf Goals Time Frame: Feb 25, 2017 Transfers (B,C,W/C) (FIM): 6 (met 02/21/17) Sit to Lying (QC): 6 (met 02/21/17) Lying-Sitting on Side/Bed(QC): 6 (met 02/21/17) Sit to Stand (QC): 6 (met 02/21/17) Rollin (met 02/21/17) Chair/Hqc-qe-Xogfo Xfer(QC): 6 (met 02/21/17) Does the Patient Walk: Yes Gait (FIM): 6 (met 02/21/17) Gait distance (FIM): 3=150 ft Distance: 300' Walk 50ft with 2 Turns (QC): 6 (met 02/21/17) Walk 150 ft (QC): 6 (met 02/21/17) Gait Level of Assist: 6 (met 02/21/17) Gait Assistive Device: FWW, Cane Single Point OT Snf Goals Grapple Skidder Operator Goals Time Frame: Mar 04, 2017 Eating (FIM): 6 Eating (QC): 6 Groomin Oral Hygiene (QC): 6 Bathing(FIM): 5 Upper Body Dressing(FIM): 6 Lower Body Dressing(FIM): 6 Toileting(FIM): 6 Toilet/Commode Transfer(FIM): 6 Toilet/Commode Transfer (QC): 6 Additional Goals: 1-Demonstrate ADL Tasks, 2-Verbalize Understanding, 3- ImproveStrength/Austen 1=Demonstrate adherence to instructed precautions during ADL tasks. 2=Patient will verbalize/demonstrate understanding of assistive devices/ modifications for ADL. 3=Patient will improve strength/tolerance for activity to enable patient to perform ADL's. ARMIDA POWELL OT Feb 24, 2017 11:51
== END 2017-02-23 14:40 | disposition home health service (06) | DRG 872 ==
LOC: 4TH 09:23
PROVIDERS: ADMIT Family Medicine; ATTEND Family Medicine
DX: A41.89 Other specified sepsis (principal); B97.89 Other viral agents as the cause of diseases classified elsewhere; S52.601D Unspecified fracture of lower end of right ulna, subsequent encounter for closed fracture with routine healing; K92.2 Gastrointestinal hemorrhage, unspecified; J98.11 Atelectasis; J81.1 Chronic pulmonary edema; Z66 Do not resuscitate; I12.9 Hypertensive chronic kidney disease with stage 1 through stage 4 chronic kidney disease, or unspecified chronic kidney disease; N18.9 Chronic kidney disease, unspecified; E03.9 Hypothyroidism, unspecified; F41.9 Anxiety disorder, unspecified; G47.9 Sleep disorder, unspecified; K59.00 Constipation, unspecified; K44.9 Diaphragmatic hernia without obstruction or gangrene; W19.XXXD Unspecified fall, subsequent encounter; Z95.0 Presence of cardiac pacemaker; Z79.82 Long term (current) use of aspirin
CPT/HCPCS: 36415; 80048; 80053; 80202; 85027; 94640; 94664; 94760; 94761

== ENCOUNTER 2017-04-03 12:23 | Inpatient (IN) | payer MEDICARE, BC ==
[2017-04-03] VITALS (19 sets, daily range): BP systolic 101–174; BP diastolic 55–125
[~2017-04-03] VITALS: Ht 165.1 cm; Wt 67.6 kg
[2017-04-03 12:56] LABS: BASOPHILS % (AUTO) 0 % (0-10); EOSINOPHILS # (AUTO) 0.1 10^3/uL (0.0-0.3); EOSINOPHILS % (AUTO) 1 % (0-10); LYMPHOCYTES # (AUTO) 1.2 X 10^3 (1.0-4.0); LYMPHOCYTES % (AUTO) 18 % (12-44); MEAN CORPUSCULAR HEMOGLOBIN 29 PG (25-34); MEAN CORPUSCULAR HGB CONC 33 G/DL (32-36); MEAN CORPUSCULAR VOLUME 88 FL (80-99); MEAN PLATELET VOLUME 10.3 FL (7.4-10.4); MONOCYTES # (AUTO) 0.5 X 10^3 (0.0-1.0); MONOCYTES % (AUTO) 8 % (0-12); NEUTROPHILS % (AUTO) 73 % (42-75); PLATELET COUNT 280 10^3/uL (130-400); RED CELL DISTRIBUTION WIDTH 13.6 % (10.0-14.5); WHITE BLOOD COUNT 6.9 10^3/uL (4.3-11.0)
--- NOTE | 2017-04-03 12:58 | ED Cardiac General ---
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 SHE WAS TOLD THAT HER HR WAS HIGH THEN. THURSDAY SHE HAD ANOTHER APPT AT A DIFFERENT DOCTORS OFFICE AND THEY CALLED AND GOT HER AN APPT WITH CARDIOLOGY TODAY. SHE WAS IN AFIB RVR IN THEIR OFFICE TODAY AND WAS SENT TO ER. Source: patient Exam Limitations: no limitations History of Present Illness Time seen by provider: 12:40 Initial Comments The patient is a [facility] 86-year-old white female. She reports that she saw Dr. Blas earlier in the week. Dr. Blas told her that she had a rapid heart rate and arrange an appointment with cardiology for today. She saw Dr. German this morning and was told she had atrial fibrillation with a rapid rate. He sent her here to be admitted. She reports only some decline in her exercise tolerance. There is no chest pain. Timing/Duration: other Severity: mild Activities at Onset: none Prior CP/Workup: no prior chest pain Allergies and Home Medications Allergies Coded Allergies: Penicillins (Verified Allergy, Unknown, 06/19/08) Sulfa (Sulfonamide Antibiotics) (Verified Allergy, Unknown, 06/19/08) Home Medications Alprazolam 0.5 Mg Tablet, 0.25-0.5 MG PO TID PRN for ANXIETY for 30 Days, #90 TAKES 1/2 TO 1 (0.5MG) TABLET Prescribed by: RAH BLAS on 02/23/17 0948 Aspirin 81 Mg Tablet.dr, 81 MG PO DAILY, (Reported) Brimonidine Tartrate/Timolol 5 Ml Drops, 1 DROP OS DAILY, (Reported) Carvedilol 12.5 Mg Tablet, 6.25 MG PO BID, (Reported) TAKES 1/2 (12.5MG) TABLET Cholecalciferol (Vitamin D3) 1,000 Unit Tablet, 1,000 UNIT PO 1200, (Reported) Cholecalciferol (Vitamin D3) 1,000 Unit Capsule, 2,000 UNIT PO BID, (Reported) Citalopram Hydrobromide 40 Mg Tablet, 40 MG PO DAILY, (Reported) Diltiazem HCl 360 Mg Capsule.er, 360 MG PO DAILY, (Reported) Docusate Sodium 100 Mg Capsule, 100 MG PO DAILY, (Reported) Ergocalciferol (Vitamin D2) 50,000 Unit Capsule, 50,000 UNITS PO Sa, (Reported) Flaxseed Oil 1,000 Mg Capsule, 1,000 MG PO DAILY, (Reported) Furosemide 40 Mg Tablet, 40 MG PO DAILY PRN for SWELLING, (Reported) Hydralazine HCl 100 Mg Tablet, 100 MG PO BID, (Reported) Hydrocodone/Acetaminophen 1 Each Tablet, 0.5-1 TAB PO Q6H PRN for PAIN-MODERATE for 30 Days, #120 Prescribed by: RAH BLAS on 02/23/17 0948 Levothyroxine Sodium 25 Mcg Tablet, 12.5 MCG PO DAILY, (Reported) TAKES 1/2 (25MCG) TABLET Lisinopril 40 Mg Tablet, 40 MG PO DAILY, (Reported) Review of Systems Constitutional: see HPI EENTM: No Symptoms Reported Respiratory: No Symptoms Reported Cardiovascular: See HPI Genitourinary: No Symptoms Reported Musculoskeletal: joint pain, muscle stiffness Skin: no symptoms reported Psychiatric/Neurological: No Symptoms Reported Past Bifisbq-Mpqdak-Plnwys Hx Patient Social History Alcohol Use: Denies Use Recreational Drug Use: No 2nd Hand Smoke Exposure: No Recent Foreign Travel: No Contact w/Someone Who Travel: No Recent Infectious Disease Expo: No Recent Hopitalizations: No Physical Abuse: No Sexual Abuse: No Immunizations Up To Date Tetanus Booster (TDap): Unknown Date of Pneumonia Vaccine: May 15, 2013 Date of Influenza Vaccine: Feb 18, 2017 Seasonal Allergies Seasonal Allergies: No Surgeries History of Surgeries: Yes Surgeries: Abdominal Respiratory History of Respiratory Disorde: No Cardiovascular History of Cardiac Disorders: Yes (pacemaker) Cardiac Disorders: Hypertension, Irregular Heartbeat Neurological History of Neurological Disord: No Reproductive System Hx Reproductive Disorders: Yes (BARTHOLIN CYSTS X 2 WITH SURGERY FOR BOTH) Genitourinary History of Genitourinary Disor: Yes Genitourinary Disorders: Bladder Infection, Renal Failure Gastrointestinal History of Gastrointestinal Di: No Musculoskeletal History of Musculoskeletal Dis: No Endocrine History of Endocrine Disorders: Yes Endocrine Disorders: Hypothyroidsim HEENT History of HEENT Disorders: Yes HEENT Disorders: Cataract Hearing Impairment: Denies Cancer History of Cancer: Yes Cancer: Bladder Did You Recieve Any Treatments: Yes Type of Tx Receive: Surgical Intervention Psychosocial History of Psychiatric Problem: Yes Behavioral Health Disorders: Sleep Difficulties, Anxiety Suicide Risk Score: 0 Integumentary History of Skin or Integumenta: Yes (PEREZ FROM TAKING COUMADIN) Blood Transfusions History of Blood Disorders: No Adverse Reaction to a Blood Tr: No Family Medical History Significant Family History: Heart Disease, Hypertension Family Medial History: Patient reports no known family medical history. Physical Exam Vital Signs Vital Sign - Last 12Hours 04/03/17 12:40 Temp 97.1 Pulse 135 Resp 20 B/P (MAP) 172/105 (127) Pulse Ox 99 O2 Delivery Room Air Capillary Refill : Less Than 3 Seconds General Appearance: No Apparent Distress, WD/WN HEENT: Normal ENT Inspection Neck: Normal Inspection Respiratory: Chest Non Tender, Lungs Clear, Normal Breath Sounds, No Accessory Muscle Use, No Respiratory Distress Cardiovascular: Irregularly Irregular Gastrointestinal: Normal Bowel Sounds, No Organomegaly, No Pulsatile Mass, Non Tender Extremity: Normal Capillary Refill, Normal Inspection, Normal Range of Motion, Non Tender, No Calf Tenderness, No Pedal Edema Neurologic/Psychiatric: Alert, Oriented x3, No Motor/Sensory Deficits, Normal Mood/Affect Skin: Normal Color, Warm/Dry Progress/Results/Core Measures Results/Orders Lab Results Laboratory Tests Test 04/03/17 12:48 Range/Units White Blood Count 6.9 4.3-11.0 10^3/uL Red Blood Count 4.20 L 4.35-5.85 10^6/uL Hemoglobin 12.1 11.5-16.0 G/DL Hematocrit 37 35-52 % Mean Corpuscular Volume 88 80-99 FL Mean Corpuscular Hemoglobin 29 25-34 PG Mean Corpuscular Hemoglobin Concent 33 32-36 G/DL Red Cell Distribution Width 13.6 10.0-14.5 % Platelet Count 280 130-400 10^3/uL Mean Platelet Volume 10.3 7.4-10.4 FL Neutrophils (%) (Auto) 73 42-75 % Lymphocytes (%) (Auto) 18 12-44 % Monocytes (%) (Auto) 8 0-12 % Eosinophils (%) (Auto) 1 0-10 % Basophils (%) (Auto) 0 0-10 % Neutrophils # (Auto) 5.0 1.8-7.8 X 10^3 Lymphocytes # (Auto) 1.2 1.0-4.0 X 10^3 Monocytes # (Auto) 0.5 0.0-1.0 X 10^3 Eosinophils # (Auto) 0.1 0.0-0.3 10^3/uL Basophils # (Auto) 0.0 0.0-0.1 10^3/uL Sodium Level 140 135-145 MMOL/L Potassium Level 4.7 3.6-5.0 MMOL/L Chloride Level 107 98-107 MMOL/L Carbon Dioxide Level 22 21-32 MMOL/L Anion Gap 11 5-14 MMOL/L Blood Urea Nitrogen 36 H 7-18 MG/DL Creatinine 1.70 H 0.60-1.30 MG/DL Estimat Glomerular Filtration Rate 28 BUN/Creatinine Ratio 21 Glucose Level 100 70-105 MG/DL Calcium Level 9.3 8.5-10.1 MG/DL Total Bilirubin 0.6 0.1-1.0 MG/DL Aspartate Amino Transf (AST/SGOT) 12 5-34 U/L Alanine Aminotransferase (ALT/SGPT) 8 0-55 U/L Alkaline Phosphatase 52 40-136 U/L Troponin I < 0.30 <0.30 NG/ML Total Protein 7.0 6.4-8.2 GM/DL Albumin 4.0 3.2-4.5 GM/DL My Orders Orders - GERDA MOYA MD Ekg Tracing (04/03/17 12:33) Cbc With Automated Diff (04/03/17 12:33) Comprehensive Metabolic Panel (04/03/17 12:33) Ua Culture If Indicated (04/03/17 12:33) Chest 1 View, Ap/Pa Only (04/03/17 12:33) Troponin I (04/03/17 12:34) Vital Signs/I&O Vital Sign - Last 12Hours 04/03/17 12:40 Temp 97.1 Pulse 135 Resp 20 B/P (MAP) 172/105 (127) Pulse Ox 99 O2 Delivery Room Air Blood Pressure Mean: 127 Departure Communication (Admissions) Progress Notes The patient relates that she had a pacemaker placed in 2003 at this institution. This was in someway prompted by a rapid heart rate. She took amiodarone at the time but later this was discontinued. These records are prior to our EMR. She is not on anticoagulation. Laboratory looks satisfactory. It is noted that her creatinine is 1.7 today and that her average recently is been more in the 1.35-1.4 range. Impression Impression: Primary Impression: atrial fibrillation with rapid ventricular response Disposition: ADMITTED INPATIENT Condition: Stable/Unchanged Admissions Decision to Admit Reason: Admit from ER (General) Decision to Admit/Date: Apr 03, 2017 Time/Decision to Admit Time: 13:53 Departure-Patient Inst. Referrals: RAH BLAS MD (PCP/Family) Primary Care Physician GERDA MOYA MD Apr 03, 2017 12:58
--- NOTE | 2017-04-03 13:08 | Diagnostic Imaging Report ---
INDICATION: Arrhythmia. Portable chest 12:52 PM. There is a left subclavian dual chamber pacemaker with leads projecting over the right atrium and right ventricle. Heart size and pulmonary vascularity are normal. Lungs are clear. There are no effusions or pneumothoraces. IMPRESSION: No acute abnormalities in the chest. Dictated by: Dictated on workstation # [id number]
[2017-04-03 13:17] LABS: ALANINE AMINOTRANSFERASE 8 U/L (0-55); ANION GAP 11 MMOL/L (5-14); ASPARTATE AMINO TRANSFERASE 12 U/L (5-34); BILIRUBIN,TOTAL 0.6 MG/DL (0.1-1.0); BLOOD UREA NITROGEN 36 MG/DL (7-18); BUN/CREATININE RATIO 21; CALCIUM 9.3 MG/DL (8.5-10.1); CARBON DIOXIDE 22 MMOL/L (21-32); CHLORIDE 107 MMOL/L (98-107); GFR ESTIMATED 28; GLUCOSE 100 MG/DL (70-105); POTASSIUM 4.7 MMOL/L (3.6-5.0); SODIUM 140 MMOL/L (135-145)
[2017-04-03 13:23] LABS: TROPONIN I < 0.30 NG/ML (<0.30)
[2017-04-03 14:04] LABS: BILIRUBIN,URINE NEGATIVE (NEGATIVE); KETONES,URINE NEGATIVE (NEGATIVE); LEUKOCYTE ESTERASE ,URINE 2+ (NEGATIVE); NITRITE,URINE NEGATIVE (NEGATIVE); PH,URINE 5 (5-9); PROTEIN,URINE 1+ (NEGATIVE); UROBILINOGEN,URINE NORMAL (NORMAL)
[2017-04-03 14:12] LABS: SQUAMOUS EPITHELIAL CELL,UR 0-2 /HPF; WBC,URINE 0-2 /HPF
[2017-04-03] MEDS ORDERED: DILTIAZEM 60 MG (CARDIZEM) TAB PO SCH (14:15)
[2017-04-03] MEDS ORDERED: ALPR0.5T7 PO ×2 (15:42)
[2017-04-03] MEDS ORDERED: HYDR-3820 PO ×2 (15:42)
[2017-04-03] MEDS ORDERED: DILTIAZEM 100 MG/VIAL (CARDIZEM) ADD-VANTAGE IV ONE (15:45)
[2017-04-03] MEDS ORDERED: SODIUM CHLORIDE (ADD-VANTAGE) 100 ML IV ONE (15:45)
[2017-04-03] MEDS ORDERED: HYDROcodone/APAP 10 MG/325 MG (LORTAB) TAB PO PRN (16:30)
[2017-04-03] MEDS ORDERED: FUROSEMIDE 40 MG (LASIX) TAB PO PRN (16:30)
[2017-04-03] MEDS ORDERED: ALPRAZolam 0.25 MG (XANAX) TAB PO PRN (16:45)
[2017-04-03] MEDS ORDERED: hydrALAZINE (APRESOLINE) 25 MG TAB ONE (17:07)
[2017-04-03] MEDS ORDERED: CARVEDILOL 6.25 MG (COREG) TAB ONE (17:07)
[2017-04-03] MEDS: CARVEDILOL 6.25 MG (COREG) TAB PO SCH (17:09)
[2017-04-03] MEDS: hydrALAZINE (APRESOLINE) 25 MG TAB PO SCH (17:10)
[2017-04-03] MEDS ORDERED: [UNRECOGNIZED DRUG - OTHER] IV NR ×2 (17:21)
[2017-04-03] MEDS: APIXABAN 2.5 MG (ELIQUIS) TABLET PO SCH (18:16)
[2017-04-03] MEDS: DILTIAZEM DRIP 100 MG/NS 100 ML IV SCH ×4 (18:17→22:12)
[2017-04-03] MEDS: DOCUSATE SODIUM 100 MG (COLACE) CAP PO SCH (20:52)
[2017-04-03] MEDS ORDERED: AMIODARONE 450 MG/9 ML (CORDARONE) VIAL IV ONE (23:40)
[2017-04-03] MEDS ORDERED: D5W IV SOLUTION (EXCEL) 250 ML IV ONE (23:40)
[2017-04-04] VITALS (16 sets, daily range): BP systolic 100–181; BP diastolic 54–94
[2017-04-04] MEDS: DILTIAZEM DRIP 100 MG/NS 100 ML IV SCH ×2 (06:10)
[2017-04-04] MEDS: APIXABAN 2.5 MG (ELIQUIS) TABLET PO SCH (06:22)
[2017-04-04] MEDS ORDERED: LEVOTHYROXINE 25 MCG (LEVOTHROID) TAB PO SCH (06:30)
[2017-04-04] MEDS ORDERED: VITAMIN D2 50,000 UNITS (1.25 MG) CAP PO SCH (07:00)
[2017-04-04] MEDS ORDERED: NS IV 500 ML 500 ML ONE (08:26)
[2017-04-04] MEDS ORDERED: LIDOCAINE 2% VISCOUS 15 ML UDC ONE (08:26)
[2017-04-04] MEDS ORDERED: BRIMONIDINE 0.2% (ALPHAGAN) OPHTH SOLN 5 ML BTL OU SCH (09:00)
[2017-04-04] MEDS ORDERED: NON-FORMULARY MEDICATION 1 EA EA (Flaxseed Oil 1,000 MG) PO SCH (09:00)
[2017-04-04] MEDS ORDERED: DILTIAZEM 180 MG (CARDIZEM CD) CAP PO SCH (09:00)
[2017-04-04] MEDS ORDERED: TIMOLOL MALEATE 0.5% 5 ML (TIMOPTIC) BTL OU SCH (09:00)
[2017-04-04] MEDS ORDERED: lisINopril 20 MG (ZESTRIL) TAB PO SCH (09:00)
[2017-04-04] MEDS ORDERED: VITAMIN D3 1,000 UNITS (CHOLECALCIFEROL) TABLET PO SCH ×2 (09:00→12:00)
[2017-04-04] MEDS ORDERED: ASPIRIN E.C. 81 MG (ECOTRIN) TAB PO SCH (09:00)
[2017-04-04] MEDS ORDERED: proPOfol 200 MG/20 ML (DIPRIVAN) VIAL IV ONE ×2 (09:14→10:45)
[2017-04-04] MEDS ORDERED: MIDAZOLAM 5 MG/5 ML (VERSED) VIAL ONE (09:14)
[2017-04-04] MEDS: LIDOCAINE 2% VISCOUS 15 ML UDC PO SCH ×2 (10:00→11:00)
--- NOTE | 2017-04-04 10:17 | Consultation-Cardiology ---
HPI-Cardiology Cardiology Consultation: Date of Consultation 04/04/17 Date of Admission Attending Physician Jena Blas MD Admitting Physician Jena Blas MD Consulting Physician Phyllis GERMAN MD HPI: Time Seen by Provider: 09:40 Chief Complaint: atrial fibrillation with rapid ventricular rate This is a very pleasant 86 year old lady who is a patient of Dr Blas. She follows a [facility] in but would like to set up care close to home. She has history of Atrial Fibrillation and had a PPM placed in in 2003. generator change in family 2013. The permanent pacemaker is from [employer]. Her last pacemaker check was in October 2015 which according to the patient was within satisfactory limits. She has history of atrial fibrillation. However according to the patient there were no episodes of atrial fibrillation on device interrogation for the last 3 years therefore Coumadin was discontinued. And she was started only on aspirin. She also has history of hypertension, hyperlipidemia, lower extremity swelling. 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 She also has a possible bladder tumor and she is following a urologist. She denies any cardiac complaints. She does not have any significant lower extremity swelling. She complains of mild fatigue but no palpitations. However both Dr. Blas and Dr. Gail German her film touch up inspector have noted tachycardia with heart rates over 100. Review of Systems-Cardiology Review of Systems Constitutional: No As described under HPI, No no symptoms reported, No chills, No fever, No lightheadedness, No malaise, No tiredness, No weight loss, No weight gain, No other Eyes: No As described under HPI, No no symptoms reported, No blindness, No blurred vision, No contact lenses, No drainage, No decreased acuity, No foreign body sensation, No glasses, No inflammation, No pain, No photophobia, No previous injury, No shadows, No tunnel vision, No other, No vision change Ears/Nose/Throat: No As described under HPI, No no symptoms reported, No chronic hearing loss, No epistaxis, No ear discharge, No ear pain, No loose teeth, No mouth pain, No mouth swelling, No nasal drainage, No nose pain, No recent hearing loss, No throat pain, No throat swelling, No ulcerations, No other Respiratory: No no symptoms reported, No As described under HPI, No cough, No orthopnea, No shortness of breath, No SOB with excertion, No SOB at rest, No stridor, No wheezing, No other Cardiovascular: irregular heart rate, palpitations Gastrointestinal: No no symptoms reported, No As described under HPI, No abdomen distended, No abdominal pain, No blood streaked bowels, No constipation , No diarrhea, No difficulty swallowing, No nausea, No poor appetite, No poor fluid intake, No rectal bleeding, No vomiting, No other, No nausea/vomiting/ diarrhea, No stool coloration changes Genitourinary: No no symptoms reported, No As described under HPI, No burning, No dysuria, No discharge, No frequency, No flank pain, No hematuria, No incontinence, No pain, No urgency, No other, No urine frequency changes, No urine coloration changes Musculoskeletal: No no symptoms reported, No As describe under HPI, No back pain, No gout, No joint pain, No joint swelling, No muscle pain, No muscle stiffness, No neck pain, No other Skin: No no symptoms reported, No As described under HPI, No change in color, No change in hair/nails, No dryness, No lesions, No lumps, No rash, No other, No skin related problems, No ulcerations, No rash on exposed areas, No ulcerations on exposed areas JVR-Dpaowo-Jnulza Hx Patient Social History Alcohol Use: Denies Use Recreational Drug Use: No Smoking Status: Never a Smoker 2nd Hand Smoke Exposure: No Recent Foreign Travel: No Recent Infectious Disease Expo: No Hospitalization with Isolation: Denies Physical Abuse Screen: No Sexual Abuse: No Immunizations Up To Date Tetanus Booster (TDap): Unknown Date of Pneumonia Vaccine: May 15, 2013 Date of Influenza Vaccine: Feb 18, 2017 Past Medical History PMH As described under Assessment. Family Medical History Family History: Patient reports no known family medical history. Allergies and Home Medications Allergies Coded Allergies: Penicillins (Verified Allergy, Unknown, 06/19/08) Sulfa (Sulfonamide Antibiotics) (Verified Allergy, Unknown, 06/19/08) Home Medications Alprazolam 0.5 Mg Tablet, 0.25-0.5 MG PO TID PRN for ANXIETY, (Reported) TAKES 1/2 TO 1 (0.5MG) TABLET Apixaban 2.5 Mg Tablet, 2.5 MG PO BID@0600,1800 for 90 Days, #180 Ref 3 Prescribed by: Phyllis GERMAN on 04/04/17 1053 Aspirin 81 Mg Tablet.dr, 81 MG PO DAILY, (Reported) Brimonidine Tartrate/Timolol 5 Ml Drops, 1 DROP OS DAILY, (Reported) Carvedilol 12.5 Mg Tablet, 6.25 MG PO BID, (Reported) TAKES 1/2 (12.5MG) TABLET Cholecalciferol (Vitamin D3) 1,000 Unit Tablet, 1,000 UNIT PO 1200, (Reported) Cholecalciferol (Vitamin D3) 1,000 Unit Capsule, 2,000 UNIT PO BID, (Reported) Citalopram Hydrobromide 40 Mg Tablet, 40 MG PO DAILY, (Reported) Diltiazem HCl 360 Mg Capsule.er, 360 MG PO DAILY, (Reported) Docusate Sodium 100 Mg Capsule, 100 MG PO BID, (Reported) Ergocalciferol (Vitamin D2) 50,000 Unit Capsule, 50,000 UNITS PO Sa, (Reported) Flaxseed Oil 1,000 Mg Capsule, 1,000 MG PO DAILY, (Reported) Furosemide 40 Mg Tablet, 40 MG PO DAILY PRN for SWELLING, (Reported) Hydralazine HCl 100 Mg Tablet, 100 MG PO BID, (Reported) Hydrocodone/Acetaminophen 1 Each Tablet, 0.5-1 TAB PO Q6H PRN for PAIN-MODERATE, (Reported) Levothyroxine Sodium 25 Mcg Tablet, 12.5 MCG PO DAILY, (Reported) TAKES 1/2 (25MCG) TABLET Lisinopril 40 Mg Tablet, 40 MG PO DAILY, (Reported) Physical Exam-Cardiology Physical Exam Vital Signs/I&O Vital Sign - Last 12Hours 04/03/17 04/03/17 04/03/17 04/04/17 23:00 23:55 23:55 00:00 Temp 98.9 Pulse 101 102 85 Resp 29 14 16 B/P (MAP) 114/68 (83) 100/54 (69) Pulse Ox 93 98 97 96 O2 Delivery Room Air Room Air Room Air Room Air 04/04/17 04/04/17 04/04/17 04/04/17 01:00 01:00 02:00 03:00 Pulse 120 95 105 80 Resp 19 16 9 B/P (MAP) 102/59 (73) 109/75 (86) 121/87 (98) Pulse Ox 94 93 95 O2 Delivery Room Air Room Air Room Air 04/04/17 04/04/17 04/04/17 04/04/17 04:00 04:00 04:00 05:00 Temp 98.2 Pulse 99 87 Resp 17 16 B/P (MAP) 120/80 (93) 118/79 (92) Pulse Ox 93 94 96 O2 Delivery Room Air Room Air Room Air 04/04/17 04/04/17 04/04/17 04/04/17 06:00 06:10 07:00 08:00 Temp 98.0 Pulse 70 90 100 Resp 15 B/P (MAP) 125/83 (97) 125/83 Pulse Ox 91 O2 Delivery Room Air Room Air Capillary Refill : Less Than 3 Seconds Constitutional: No appears stated age, No AAO x 3, No apparent distress, No PERRL, No well-developed, No well-nourished, No other HEENT: No PERRL, No normal ENT inspection, No TMs normal, No pharynx normal, No scleral icterus (R), No scleral icterus (L), No pale conjunctivae (R), No pale conjunctivae (L), No photophobia, No TM abnormal (R), No TM abnormal (L), No pharyngeal erythema, No tonsillar exudate, No other, No discharge, No EOMI, No hearing is well preserved, No hard of hearing, No oral hygience is good, No ulceration, No xanthelasmas are seen Neck: No non-tender, No full range of motion, No supple, No normal inspection, No carotid bruit, No limited range of motion, No lymphadenopathy (R), No lymphadenopathy (L), No tender lateral, No tender midline, No thyromegaly, No other, No carotid pulses are 2 + bilaterally, No with good upstrokes Respiratory: No accessory muscle use, No respiratory distress, No chest tender , No chest expansion is symmetric, No chest is bilaterally symmetric, No lungs clear to percussion, No lungs clear to auscultation, No crackles, No rhonchi, No rales, No stridor, No wheezing, No pleural rub, No other Cardiovascular: irregularly irregular, tachycardia, S1 and S2 Gastrointestinal: No tender, No soft, No round, No distended, No pulsatile mass , No organomegaly, No guarding, No rebound, No tenderness, No hernia, No mass, No audible bowel sounds, No abnormal bowel sounds, No abdominal bruits, No spleenomegaly, No other Rectal: deferred Extremities: No normal range of motion, No non-tender, No normal inspection, No pedal edema, No calf tenderness, No normal capillary refill, No pelvis stable , No calf tenderness, No inflammation, No pedal edema, No slow capillary refill , No swelling, No other, No abrasion, No clubbing, No cyanosis, No ecchymosis, No laceration, No no lower extremity edema bilateral, No significant edema, No tenderness, No wound Neurologic/Psychiatric: No graduate research assistant II-XII nml as tested, No no motor/sensory deficits, No alert, No normal mood/affect, No oriented x 3, No abnormal cerebellar tests, No abnormal graduate research assistant II-XII, No abnormal gait, No aphasia, No EOM palsy, No facial droop, No motor weakness, No sensory deficit, No depressed affect, No disoriented x 3, No other, No grossly intact, No power is 5/5 both on sides Skin: No normal color, No warm/dry, No cyanosis, No cool, No diaphoresis, No damp, No ecchymosis, No jaundice, No mottled, No pallor, No rash, No tattoos/ piercings, No ulcerations, No rash on exposed areas, No ulcerations on exposed areas, No other Data Review Labs Laboratory Tests 04/03/17 12:48: White Blood Count 6.9, Red Blood Count 4.20L, Hemoglobin 12.1, Hematocrit 37, Mean Corpuscular Volume 88, Mean Corpuscular Hemoglobin 29, Mean Corpuscular Hemoglobin Concent 33, Red Cell Distribution Width 13.6, Platelet Count 280, Mean Platelet Volume 10.3, Neutrophils (%) (Auto) 73, Lymphocytes (%) (Auto) 18 , Monocytes (%) (Auto) 8, Eosinophils (%) (Auto) 1, Basophils (%) (Auto) 0, Neutrophils # (Auto) 5.0, Lymphocytes # (Auto) 1.2, Monocytes # (Auto) 0.5, Eosinophils # (Auto) 0.1, Basophils # (Auto) 0.0, Sodium Level 140, Potassium Level 4.7, Chloride Level 107, Carbon Dioxide Level 22, Anion Gap 11, Blood Urea Nitrogen 36H, Creatinine 1.70H, Estimat Glomerular Filtration Rate 28, BUN/ Creatinine Ratio 21, Glucose Level 100, Calcium Level 9.3, Total Bilirubin 0.6, Aspartate Amino Transf (AST/SGOT) 12, Alanine Aminotransferase (ALT/SGPT) 8, Alkaline Phosphatase 52, Troponin I < 0.30, Total Protein 7.0, Albumin 4.0 04/03/17 13:49: Urine Color YELLOW, Urine Clarity CLEAR, Urine pH 5, Urine Specific [place] 1.010L, Urine Protein 1+H, Urine Glucose (UA) NEGATIVE, Urine Ketones NEGATIVE, Urine Nitrite NEGATIVE, Urine Bilirubin NEGATIVE, Urine Urobilinogen NORMAL, Urine Leukocyte Esterase 2+H, Urine RBC (Auto) NEGATIVE, Urine RBC RARE, Urine WBC 0-2, Urine Squamous Epithelial Cells 0-2, Urine Crystals NONE, Urine Bacteria NEGATIVE, Urine Casts NONE, Urine Mucus NEGATIVE, Urine Culture Indicated NO ECG Impression ECG Initial ECG Impression: Atrial Fibrillation w/RVR A/P-Cardiology Assessment/Admission Diagnosis atrial fibrillation with rapid ventricular rate, Hypertension, Hyperlipidemia, Lower extremity swelling, Permanent pacemaker, Chronic kidney disease. Plan this is a very pleasant 86-year-old lady who has been referred by Dr. Blas. She sees a heeler in [place] but would like to transfer care to [facility]. She has history of Atrial Fibrillation and had a PPM placed in in 2003. generator change in family 2013. The permanent pacemaker is from [employer]. Her last pacemaker check was in October 2015 which according to the patient was within satisfactory limits. She has history of atrial fibrillation. However according to the patient there were no episodes of atrial fibrillation on device interrogation for the last 3 years therefore Coumadin was discontinued. And she was started only on aspirin. She also has history of hypertension, hyperlipidemia, lower extremity swelling. 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 She also has a possible bladder tumor and she is following a urologist. echocardiogram 02/16/2013 shows mild concentric LVH with normal ejection fraction of 60 percent. Mild diastolic dysfunction. Left atrial enlargement with diameter of 4.4 cm. Moderate to severe tricuspid regurgitation with RVSP of 55 mmHg. No aortic stenosis. Mild mitral regurgitation. Left lower extremity venous Dopplers 04/02/2015, no evidence of lower extremity DVT. Bilateral carotid ultrasound 02/16/2013. Indication syncope. Impression: Atypical appearance of the left carotid system with confusing anatomy and uncertainty as to the internal versus external carotid segments. There are findings raising the question of hemodynamically significant stenosis in the left internal carotid weighing to soft plaque with stenosis ranging 60-80 percent. MRA of the neck is suggested. Right side was unremarkable. Vertebral flow was antegrade bilaterally. ultrasound Doppler abdominal complete for renal vascular 07/05/2012. Indication uncontrolled hypertension. No evidence of significant renal artery stenosis. Right kidney 8.8 X3.1 at 4.1 cm. Left kidney 11 x 3.9 x 3.7 cm. velocities in the right renal artery are 119, 80, 67 cm/s from proximal to distal. In the left renal artery, the velocities are 72/42/55 cm/s from proximal to distal. The resistive index on the right is 0.76 and on the left is 0.69. The waveforms demonstrate brisk early arterial systolic upstroke. She denies any significant palpitations, shortness of breath. She does complain of fatigue which is usual for her. In the last 3 days she has visited Dr. Blas and her film touch up inspector Dr. Gail German, both found tachycardia. 1. Hypertension: she is on carvedilol, amlodipine, lisinopril, Cardizem. 2. Hyperlipidemia: not on statin. She does not have history of coronary artery disease. She probably has carotid artery disease however the report was unclear as mentioned above. Her fasting lipid profile done on 07/08/2016 shows a total cholesterol of 154, HDL 69, triglycerides 72, LDL 71. Therefore she does not require a statin. 3. Lower extremity swelling: She takes Lasix when necessary. However, have not been using it recently. No significant lower extremity swelling on examination. 4. Atrial fibrillation with rapid ventricular rate. amiodarone was discontinued previously. Apparently according to the patient her device interrogation did not reveal any atrial fibrillation in 3 years therefore Coumadin was discontinued. Current device interrogation shows atrial fibrillation for the last 3 days. I'll start Eliquis 2.5 mg twice a day. Reason for the lower dose is a creatinine of 1.5 and age over 80 years. start Cardizem infusion. Amiodarone infusion. Transesophageal echocardiogram assisted electrical cardioversion today. 5. Permanent pacemaker: normal device function. Atrial fibrillation x 3 days. Battery longevity 9.5 years. Atrial threshold 0.625 V at 0.40 ms. Ventricular threshold 1.375 V at 0.4 ms. R-wave 5.68.0 mV. Impedance atrial lead 514 ohms , ventricular lead 534 ohms. 6. History of partial nephrectomy: Neprhology following as outpatient. Her last creatinine done on 07/08/2016 is 1.8 with a GFR of 29. BUN was 46. Sodium 139, potassium 5.4, chloride 104, bicarbonate 29. Thank you for your consultation. Please call me if you have any questions. Eloy German MD, FACP, FACC, FSCAI, FHRS, CCDS Interventional Cardiology Cardiac Electrophysiology Vascular Medicine and Endovascular Interventions Phyllis GERMAN MD Apr 04, 2017 10:17 am
--- NOTE | 2017-04-04 10:17 | Cardiac Procedure Note-CS/ASA ---
Pre-Procedure Note Pre-Op Procedure Note H&P Reviewed The H&P was reviewed, patient examined and no changes noted. Date H&P Reviewed: Apr 04, 2017 Time H&P Reviewed: 09:40 Conscious Sedation Pre-Proced Time Reviewed: 09:40 ASA Class: 3 Airway Mallampati Classification: (q[place]alangin appropriate class) I. II. III, IV Lungs Heart ASA score ASA 1: a normal healthy patient ASA 2: a patient with a mild systemic disease (mid diabetes, controlled hypertension, obesity ASA 3: a patient with a severe systemic disease that limits activity (angina , COPD, prior Myocardial infarction) ASA 4: a patient with an incapacitating disease that is a constant threat to life (CHF, renal failure) ASA 5: a moribund patient not expected to survive 24 hrs. (ruptured aneurysm) ASA 6: a declared brain patient whose organs are being harvested. For emergent operations, add the letter E after the classification Grade 1 Sedation Plan: Analgesia, Amnesia, Plan communicated to team members, Discussed options with patient/fam, Discussed risks with patient/fam Note The patient is an appropriate candidate to undergo the planned procedure, sedation, and anesthesia. The patient immediately re-assessed prior to indication. Phyllis SAEED MD Apr 04, 2017 10:17 am
--- NOTE | 2017-04-04 10:19 | Cardiology Post Procedure Note ---
Post-Procedure Note Physician (s)/Computational Sciences Professor (s) Physician Phyllis SAEED MD Pre-Procedure Diagnosis Pre-Procedure Diagnosis: AF with RVR Post-Procedure Note Procedure Start Date: Apr 04, 2017 Procedure Start Time: 09:40 Name of Procedure: RUFINO assisted electrical cardioversion Findings/Procedure Note RUFINO: no LA, LV, GEO thrombus Successful single 200J direct synchronized cardioversion to sinus rhythm. Estimated blood loss (mL): 0 Contrast Amount: 0 Post-Procedure Diagnosis Post-operative diagnosis: Successful electrical cardioversion from AF to Sinus rhythm Phyllis SAEED MD Apr 04, 2017 10:19 am
--- NOTE | 2017-04-04 10:43 | Short Stay Summary-Hospitalist ---
HPI History of Present Illness: HPI/Chief Complaint Mrs. Canada is a pleasant 86-year-old white female who reports that she was feeling well until she woke up Thursday of this week noting nonspecific fatigue. She denied any sensations of heart racing syncope presyncope or chest discomfort. She does have a past history of atrophic fibrillation and had been on amiodarone apparently for many years until it was discontinued earlier this year by Dr. German. She apparently saw Dr. Blas earlier this week who noted that she was back in atrial fibrillation. She also had an appointment with her striker off who happens to be Dr. German's on Thursday she apparently was still in atrial fibrillation with rapid ventricular response she was feeling increasingly more fatigued and was referred to the emergency room where her heart rate was in the 110-130 range in a fibrillation. She has been admitted for treatment and consideration for cardioversion. She has no known past history of thyroid disease or coronary artery disease. Date Seen 04/04/17 Time Seen by Provider: 08:00 Attending Physician Rah Blas MD PCP Rah Blas MD Referring Physician Date of Admission Apr 03, 2017 at 14:05 Home Medications & Allergies Home Medications Reviewed patient Home Medication Reconciliation Form Allergies Allergies Coded Allergies Penicillins (Verified Allergy, Unknown, 06/19/08) Sulfa (Sulfonamide Antibiotics) (Verified Allergy, Unknown, 06/19/08) Past Gbmyemz-Grxhbo-Gsfyvd Hx Patient Social History Alcohol Use: Denies Use Recreational Drug Use: No Smoking Status: Never a Smoker 2nd Hand Smoke Exposure: No Physical Abuse Screen: No Sexual Abuse: No Recent Foreign Travel: No Contact w/other who traveled: No Recent Hopitalizations: No Recent Infectious Disease Expo: No Immunizations Up To Date Tetanus Booster (TDap): Unknown Date of Pneumonia Vaccine: May 15, 2013 Date of Influenza Vaccine: Feb 18, 2017 Seasonal Allergies Seasonal Allergies: No Surgeries Yes Abdominal Respiratory No Cardiovascular Yes (pacemaker) Hypertension, Irregular Heartbeat Neurological No Reproductive System : No Hx Reproductive Disorders: Yes (BARTHOLIN CYSTS X 2 WITH SURGERY FOR BOTH) Genitourinary Yes Bladder Infection, Renal Failure Gastrointestinal No Musculoskeletal No Endocrine History of Endocrine Disorders: Yes Endocrine Disorders: Hypothyroidsim HEENT History of HEENT Disorders: Yes HEENT Disorders: Cataract Hearing Impairment: Denies Cancer Yes Bladder Did You Recieve Any Treatments: Yes Type of Treatment: Surgical Intervention Psychosocial History of Psychiatric Problem: Yes Behavioral Health Disorders: Sleep Difficulties, Anxiety Integumentary History of Skin or Integumenta: Yes (PEREZ FROM TAKING COUMADIN) Blood Transfusions History of Blood Disorders: No Adverse Reaction to a Blood Tr: No Family Medical History Significant Family History: Heart Disease, Hypertension Family Hx: Patient reports no known family medical history. Review of Systems Constitutional: no symptoms reported, see HPI Respiratory: No cough, dyspnea on exertion, No orthopnea, No phlegm, No short of breath Cardiovascular: No no symptoms reported, see HPI, No chest pain, No edema, No Hx of Intervention, No palpitations, No syncope, No vascular heart diseas, No other Physical Exam Physical Exam Vital Signs Vital Sign - Last 12Hours 04/03/17 04/04/17 12:40 10:00 Temp 97.1 Pulse 135 Resp 20 B/P (MAP) 172/105 (127) Pulse Ox 99 O2 Delivery Room Air O2 Flow Rate 5.00 Capillary Refill : Less Than 3 Seconds General Appearance: No Apparent Distress, WD/WN Neck: Full Range of Motion, Normal Inspection, Non Tender, Supple Respiratory: Chest Non Tender, Lungs Clear, Normal Breath Sounds, No Accessory Muscle Use, No Respiratory Distress Cardiovascular: No Edema, No Gallop, No JVD, Irregularly Irregular, Other ( Soft 1 to 2/6 systolic ejection murmur heard at the second intercostal space without evidence for pulsus parvus or tardus.) Gastrointestinal: Normal Bowel Sounds, No Organomegaly, No Pulsatile Mass, Non Tender, Soft Extremity: Normal Inspection, Normal Range of Motion, Non Tender, No Calf Tenderness, No Pedal Edema Results Results/Procedures Lab Short Stay Diagnosis Discharge Diagnosis-Short Stay Admission Diagnosis Atrial Fibrillation with rapid ventricular response Final Discharge Diagnosis 1. Atrial fibrillation with rapid ventricular response Conclusion Plan the patient was admitted and started on oral Cardizem. Heart rate was controlled with this and carvedilol. She underwent uneventful elective cardioversion without difficulty. She was socially discharged in sinus rhythm with stable vital signs heart rate in the 60s. was discharged on 360 mg of Cardizem CD daily continuing Eliquis 2.5 mg twice a day and carvedilol 6.25 mg twice a day in addition to her other home medications. she is to keep her regular follow-up appointment with Dr. Blas and is scheduled for follow-up with Dr. German Copy Copies To 1: RAH BLAS MD, MARK D MD Apr 04, 2017 10:43
[2017-04-04] MEDS ORDERED: MIDAZOLAM 5 MG/5 ML (VERSED) VIAL IVP ONE (10:45)
[2017-04-04] MEDS ORDERED: APIX2.5T PO ×2 (10:53)
--- NOTE | 2017-04-04 10:55 | Progress Note-Standard ---
Standard Progress Note Progress Notes/Assess & Plan Date Seen by Provider: Apr 04, 2017 Time Seen by Provider: 09:45 Progress/Assessment & Plan consult for RUFINO/CARDIOVERSION sedation. 50mg propofol and 1mg versed given IV. pt tolerated procedure well. NIYA MANN CRNA Apr 04, 2017 10:55
[2017-04-04] MEDS: CARVEDILOL 6.25 MG (COREG) TAB PO SCH (11:24)
[2017-04-04] MEDS: DOCUSATE SODIUM 100 MG (COLACE) CAP PO SCH (11:24)
[2017-04-04] MEDS: hydrALAZINE (APRESOLINE) 25 MG TAB PO SCH (11:25)
--- NOTE | 2017-04-04 19:13 | OPERATIVE REPORT ---
DATE OF SERVICE: DIRECT ELECTRICAL EXTERNAL CARDIOVERSION PERFORMING PHYSICIAN: Dr. Eloy German. INDICATION: Atrial fibrillation with rapid ventricular rate. PREOPERATIVE DIAGNOSIS: Atrial fibrillation with rapid ventricular rate. POSTOPERATIVE DIAGNOSIS: Successful conversion to sinus rhythm. HISTORY OF PRESENT ILLNESS: The patient is an 86-year-old lady with previous history of paroxysmal atrial fibrillation. She presents with atrial fibrillation with rapid ventricular rate for 3 days. She was started on a Cardizem infusion as well as amiodarone infusion. Transesophageal echocardiogram assisted cardioversion is recommended. PROCEDURE DETAILS: Transesophageal echocardiogram did not show any LV, left atrium, left atrial thrombus. Therefore, a single synchronized 200 joules external shock was given, which successfully converted the patient to sinus rhythm. This was done with anesthesia support. The patient did not have any complications and tolerated the procedure well. IMPRESSION/CONCLUSION: 1. Transesophageal echocardiography showed no left ventricular, left atrium, left atrial appendage thrombus. 2. Successful external electrical cardioversion with conversion to sinus rhythm. 3. The patient was started on Eliquis 2.5 mg twice a day and will be discharged on that. The patient will follow with me in office in the next 7 to 10 days. Job ID: [id number] DocumentID: [id number] Dictated Date: 04/04/2017 10:52:00 [employer] Date: 04/04/2017 17:48:48 Dictated By: STEPHANIE GERMAN MD
== END 2017-04-04 17:50 | disposition home or self-care (01) | DRG 310 ==
LOC: EDUNIT# 12:23 → ER 12:26 → ICU 14:05
PROVIDERS: ADMIT Family Medicine; ATTEND Family Medicine
PROC: 5A2204Z Restoration of Cardiac Rhythm, Single (ICD-10-PCS; principal; 2017-04-04)
DX: I48.91 Unspecified atrial fibrillation (principal); I12.9 Hypertensive chronic kidney disease with stage 1 through stage 4 chronic kidney disease, or unspecified chronic kidney disease; N18.9 Chronic kidney disease, unspecified; E78.5 Hyperlipidemia, unspecified; Z95.0 Presence of cardiac pacemaker; Z88.0 Allergy status to penicillin; Z88.2 Allergy status to sulfonamides; Z66 Do not resuscitate; E03.9 Hypothyroidism, unspecified; Z85.51 Personal history of malignant neoplasm of bladder; F41.9 Anxiety disorder, unspecified; M79.89 Other specified soft tissue disorders; Z90.5 Acquired absence of kidney
CPT/HCPCS: 36415; 71010; 80053; 81000; 84484; 85025; 87081; 93005; 93320; 93325

== ENCOUNTER → 2017-04-06 | Outpatient (CLI) | payer MEDICARE, BC ==
[~2017-04-06] MED LIST changes: +APIX2.5T PO
--- NOTE | 2017-04-06 21:18 | Diagnostic Imaging Report ---
EXAMINATION: Bilateral renal ultrasound. INDICATION: Hypertension. Chronic renal disease. FINDINGS: The right kidney is 8.8 cm and the left kidney is 10.1 cm in length. There is overall mild right kidney atrophy. There is no hydronephrosis or focal lesion seen. The urinary bladder appears unremarkable. IMPRESSION: No hydronephrosis. Dictated by: Dictated on workstation # [id number]
== END ==
LOC: RAD 12:45
PROVIDERS: ATTEND Internal Medicine Interventional Cardiology
DX: I12.9 Hypertensive chronic kidney disease with stage 1 through stage 4 chronic kidney disease, or unspecified chronic kidney disease (principal); N18.3 Chronic kidney disease, stage 3 (moderate)
CPT/HCPCS: 76770

== ENCOUNTER → 2017-05-28 | Day surgery (SDC) | payer MEDICARE, BC ==
[~2017-05-28] MED LIST changes: +NS IV 1000 ML 1,000 ML IV SCH; +NS IV 1000 ML 1,000 ML ONE
--- OUTSIDE RECORDS SUMMARY | 2017-05-31 05:44 | XMS REPORT | Continuity of Care Document ---
Author Author [facility] Organization [facility] Address Unknown Phone Unavailable Allergies Active Description Code Type Severity Reaction Onset Reported/Identified Relationship to Patient Clinical Status Yes Penicillins [id number] Drug Allergy Unknown N/A 06/19/2008 Yes Sulfa (Sulfonamide Antibiotics) [id number] Drug Allergy Unknown N/A 2008 Medications There is no data. Problems Date Dx Coded Attending Type Code Diagnosis Diagnosed By 06/10/2011 Ot 847.0 SPRAIN OF NECK 06/10/2011 Ot 910.0 ABRASION HEAD 06/10/2011 Ot 916.0 ABRASION HIP LEG 06/10/2011 Ot 959.09 INJURY OF FACE AND NECK 06/10/2011 Ot E000.8 OTHER EXTERNAL CAUSE STATUS 06/10/[address]/HIGHWAY 06/10/2011 Ot E885.9 FALL FROM SLIPPING, TRIPPING, OR STUMBLI 06/10/2011 Ot V06.1 DIPHTHERIA- TETANUS-PERTUSSIS, COMBINED [ 06/10/2011 Ot V58.61 ANTICOAGULANTS,LT,CURRENT USE 06/14/2011 Ot 724.2 LUMBAGO 06/14/2011 Ot 959.19 OTH INJURY OF OTHER SITES OF TRUNK 06/14/2011 Ot E000.8 OTHER EXTERNAL CAUSE STATUS 06/14/2011 Ot E849.6 ACCIDENT IN PUBLIC BLDG 06/14/2011 Ot E888.9 FALL NOS 07/17/2011 Ot 920 CONTUSION FACE/ SCALP/NCK 07/17/2011 Ot 923.20 CONTUSION OF HAND(S) 07/17/2011 Ot 959.01 HEAD INJURY , NOS 07/17/2011 Ot E000.8 OTHER EXTERNAL CAUSE [...] Ot V58.61 ANTICOAGULANTS,LT,CURRENT USE 03/05/2013 SHAZIA BECKER FABRIC WORKER Ot 599.0 URIN TRACT INFECTION NOS 03/05/2013 SHAZIA BECKER F[employer]RIC WORKER Ot 789.09 ABDOMINAL PAIN, OTHER SPECIFIED SITE 05/17/2013 RAH ANGELES MD Ot 244.9 HYPOTHYROIDISM NOS 05/17/2013 RAH ANGELES MD Ot 272.4 HYPERLIPIDEMIA NEC/NOS 05/17/2013 RAH ANGELES MD Ot 300.00 ANXIETY STATE NOS 05/17/2013 RAH ANGELES MD Ot 403.90 HYPTNSV CHR KID DIS, UNSPEC, W CHR KD ST 05/17/2013 RAH ANGELES MD Ot 414.01 CORONARY ATHEROSCLEROSIS OF [place] CORON 05/17/2013 RAH ANGELES MD Ot 427.31 [...] FOR OCCUPATIONAL THERAPY 04/26/2015 J LUIS ANAYA APRN Ot M79.605 04/26/2015 J LUIS ANAYA APRN Ot R22.42 05/03/2015 J LUIS ANAYA APRN Ot M79.605 05/03/2015 J LUIS ANAYA APRN Ot R22.42 01/16/2016 Ot 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 01/16/2016 Ot 733.90 BONE CARTILAGE DIS NOS 01/16/2016 Ot V76.12 OTH SCREEN MAMMO-MALIGN NEOPLASM OF NICHOLE 01/16/2016 Ot V82.81 SCREENING FOR OSTEOPOROSIS 01/16/2016 Ot 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 01/16/2016 Ot 275.49 OTH DISORD/ CALCIUM METABOLISM 01/16/2016 Ot 511.9 PLEURAL EFFUSION NOS [...] RAH A Ot 599.71 GROSS HEMATURIA 01/16/2016 ASHISH ESPARZA, MUNIRA Izquierdo Ot 596.89 OTHER SPECIFIED DISORDERS OF BLADDER 01/16/2016 ASHISH ESPARZA, MUNIRA Izquierdo Ot 599.71 GROSS HEMATURIA 01/16/2016 J LUIS ANAYA FABRIC WORKER Ot M79.605 PAIN IN LEFT LEG 01/16/2016 J LUIS ANAYA FABRIC WORKER Ot R22.42 LOCALIZED SWELLING, MASS AND LUMP, LEFT 01/18/2016 MUNIRA HINOJOSA MD Ot C67.9 MALIGNANT NEOPLASM OF BLADDER, UNSPECIFI 02/08/2016 MUNIRA HINOJOSA MD Ot C67.9 MALIGNANT NEOPLASM OF BLADDER, UNSPECIFI 02/13/2016 MUNIRA HINOJOSA MD Ot C67.9 MALIGNANT NEOPLASM OF BLADDER, UNSPECIFI 02/13/2017 Ot 721.3 LUMBOSACRAL SPONDYLOSIS 02/13/2017 Ot 805.2 FX DORSAL VERTEBRA-CLOSE 02/13/2017 Ot E000.8 OTHER EXTERNAL CAUSE STATUS 02/13/2017 Ot E849.6 ACCIDENT IN PUBLIC BLDG 02/13/2017 Ot E888.9 FALL NOS 02/13/2017 Ot V76.12 OTH SCREEN MAMMO-MALIGN NEOPLASM OF [place]HO[place] 02/13/2017 Ot 401.9 HYPERTENSION NOS 02/13/2017 RAH ANGELES MD Ot 599.71 GROSS HEMATURIA 02/13/2017 MUNIRA HINOJOSA MD Ot 596.89 OTHER SPECIFIED DISORDERS OF BLADDER 02/13/2017 MUNIRA HINOJOSA MD Ot 599.71 GROSS HEMATURIA 02/13/2017 J LUIS ANAYA APRN Ot M79.605 PAIN IN LEFT LEG 02/13/2017 J LUIS ANAYA APRN Ot R22.42 LOCALIZED SWELLING, MASS AND LUMP, LEFT 02/13/2017 MUNIRA HINOJOSA MD Ot C67.9 MALIGNANT NEOPLASM OF BLADDER, UNSPECIFI 02/18/2017 RAH ANGELES MD Ot A04.8 OTHER SPECIFIED BACTERIAL INTESTINAL INF 02/18/2017 RAH ANGELES MD Ot A41.1 SEPSIS DUE TO OTHER SPECIFIED STAPHYLOCO 02/18/2017 RAH ANGELES MD Ot D64.9 ANEMIA, UNSPECIFIED 02/18/2017 RAH ANGELES MD Ot E03.9 HYPOTHYROIDISM, UNSPECIFIED 02/18/2017 RAH ANGELES MD Ot E86.0 DEHYDRATION 02/18/2017 RAH ANGELES MD Ot E87.1 HYPO-OSMOLALITY AND HYPONATREMIA 02/18/2017 RAH ANGELES MD Ot F41.9 ANXIETY DISORDER, UNSPECIFIED 02/18/2017 RAH ANGELES MD Ot G47.9 SLEEP DISORDER, UNSPECIFIED 02/18/2017 RAH ANGELES MD Ot I12.9 HYPERTENSIVE CHRONIC KIDNEY DISEASE W ST 02/18/2017 RAH ANGELES MD Ot J81.0 ACUTE PULMONARY EDEMA 02/18/2017 RAH ANGELES MD Ot J81.1 CHRONIC PULMONARY EDEMA 02/18/2017 RAH ANGELES MD Ot J98.11 ATELECTASIS 02/18/2017 RAH ANGELES MD Ot K44.9 DIAPHRAGMATIC HERNIA WITHOUT OBSTRUCTION 02/18/2017 RAH ANGELES MD, Ot K59.00 CONSTIPATION, UNSPECIFIED 02/18/2017 RHA ANGELES MD Ot K92.2 GASTROINTESTINAL HEMORRHAGE, UNSPECIFIED 02/18/2017 RAH ANGELES MD Ot N17.9 ACUTE KIDNEY FAILURE, UNSPECIFIED 02/18/2017 RAH ANGELES MD Ot N18.9 CHRONIC KIDNEY DISEASE, UNSPECIFIED 02/18/2017 RAH ANGELES MD Ot R09.02 HYPOXEMIA 02/18/2017 RAH ANGELES MD Ot R65.20 SEVERE SEPSIS WITHOUT SEPTIC SHOCK 02/18/2017 RAH ANGELES MD Ot S52.601A UNSP FRACTURE OF LOWER END OF RIGHT ULNA 02/18/2017 RAH ANGELES MD Ot W19.XXXA UNSPECIFIED FALL, INITIAL ENCOUNTER 02/18/2017 RAH ANGELES MD Ot Y92.[address] IN UNSP NON-INSTITUT (PRIVATE 02/18/2017 RAH ANGELES MD, Ot Z23 ENCOUNTER FOR IMMUNIZATION 02/18/2017 RAH ANGELES MD Ot Z66 DO NOT RESUSCITATE 02/18/2017 RAH ANGELES MD Ot 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 02/18/2017 RAH ANGELES MD Ot Z85.51 PERSONAL HISTORY OF MALIGNANT NEOPLASM O 02/18/2017 RAH ANGELES MD Ot 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 PACEMAKER 02/19/2017 RAH ANGELES MD Ot A41.89 OTHER SPECIFIED SEPSIS 02/19/2017 RAH ANGELES MD Ot B97.89 OTH VIRAL AGENTS THE CAUSE OF DISEASE 02/19/2017 RAH ANGELES MD Ot E03.9 HYPOTHYROIDISM, UNSPECIFIED 02/19/2017 RAH ANGELES MD Ot F41.9 ANXIETY DISORDER, UNSPECIFIED 02/19/2017 RAH ANGELES MD Ot G47.9 SLEEP DISORDER, UNSPECIFIED 02/19/2017 RAH ANGELES MD Ot I12.9 HYPERTENSIVE CHRONIC KIDNEY DISEASE W ST 02/19/2017 RAH ANGELES MD Ot J81.1 CHRONIC PULMONARY EDEMA 02/19/2017 RAH ANGELES MD Ot J98.11 ATELECTASIS 02/19/2017 RAH ANGELES MD Ot K44.9 DIAPHRAGMATIC HERNIA WITHOUT OBSTRUCTION 02/19/2017 RAH ANGELES MD Ot K59.00 CONSTIPATION, UNSPECIFIED 02/19/2017 RAH ANGELES MD Ot K92.2 GASTROINTESTINAL HEMORRHAGE, UNSPECIFIED 02/19/2017 RAH ANGELES MD Ot N18.9 CHRONIC KIDNEY DISEASE, UNSPECIFIED 02/19/2017 RAH ANGELES MD Ot S52.601D UNSP FX LOWER END OF R ULNA, SUBS FOR CL 02/19/2017 RAH ANGELES MD, Ot W19.XXXD UNSPECIFIED FALL, SUBSEQUENT ENCOUNTER 02/19/2017 RAH ANGELES MD Ot Z66 DO NOT RESUSCITATE 02/19/2017 RAH ANGELES MD Ot Z79.82 CUSTODIAL (CURRENT) USE OF ASPIRIN 02/19/2017 RAH ANGELES MD Ot 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 PACEMAKER 02/23/2017 RAH ANGELES MD Ot A41.89 OTHER SPECIFIED SEPSIS 02/23/2017 RAH ANGELES MD Ot B97.89 OTH VIRAL AGENTS THE CAUSE OF DISEASE 02/23/2017 RAH ANGELES MD Ot E03.9 HYPOTHYROIDISM, UNSPECIFIED 02/23/2017 RAH ANGELES MD Ot F41.9 ANXIETY DISORDER, UNSPECIFIED 02/23/2017 RAH ANGELES MD Ot G47.9 SLEEP DISORDER, UNSPECIFIED 02/23/2017 RAH ANGELES MD Ot I12.9 HYPERTENSIVE CHRONIC KIDNEY DISEASE W ST 02/23/2017 RAH ANGELES MD Ot J81.1 CHRONIC PULMONARY EDEMA 02/23/2017 RAH ANGELES MD Ot J98.11 ATELECTASIS 02/23/2017 RAH ANGELES MD Ot K44.9 DIAPHRAGMATIC HERNIA WITHOUT OBSTRUCTION 02/23/2017 RAH ANGELES MD Ot K59.00 CONSTIPATION, UNSPECIFIED 02/23/2017 RAH ANGELES MD Ot K92.2 GASTROINTESTINAL HEMORRHAGE, UNSPECIFIED 02/23/2017 RAH ANGELES MD Ot N18.9 CHRONIC KIDNEY DISEASE, UNSPECIFIED 02/23/2017 RAH ANGELES MD Ot S52.601D UNSP FX LOWER END OF R ULNA, SUBS FOR CL 02/23/2017 RAH ANGELES MD Ot W19.XXXD UNSPECIFIED FALL, SUBSEQUENT ENCOUNTER 02/23/2017 RAH ANGELES MD Ot Z66 DO NOT RESUSCITATE 02/23/2017 RAH ANGELES MD Ot 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 02/23/2017 RAH ANGELES MD Ot 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 PACEMAKER 04/04/2017 RAH ANGELES MD Ot E03.9 HYPOTHYROIDISM, UNSPECIFIED 04/04/2017 RAH ANGELES MD Ot E78.5 HYPERLIPIDEMIA, UNSPECIFIED 04/04/2017 RAH ANGELES MD Ot F41.9 ANXIETY DISORDER, UNSPECIFIED 04/04/2017 RAH ANGELES MD, Ot I12.9 HYPERTENSIVE CHRONIC KIDNEY DISEASE W ST 04/04/2017 RAH ANGELES MD Ot I48.91 UNSPECIFIED ATRIAL FIBRILLATION 04/04/2017 RAH ANGELES MD Ot M79.89 OTHER SPECIFIED SOFT TISSUE DISORDERS 04/04/2017 RAH ANGELES MD, Ot N18.9 CHRONIC KIDNEY DISEASE, UNSPECIFIED 04/04/2017 RAH ANGELES MD Ot Z66 DO NOT RESUSCITATE 04/04/2017 RAH ANGELES MD Ot Z85.51 PERSONAL HISTORY OF MALIGNANT NEOPLASM O 04/04/2017 RAH ANGELES MD Ot Z88.0 ALLERGY STATUS TO PENICILLIN 04/04/2017 RAH ANGELES MD Ot Z88.2 ALLERGY STATUS TO SULFONAMIDES STATUS 04/04/2017 RAH ANGELES MD Ot Z90.5 ACQUIRED ABSENCE OF KIDNEY 04/04/2017 RAH ANGELES MD Ot 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 PACEMAKER 04/29/2017 DARLIN ESPARZA, Phyllis ARCHIBALD Ot I12.9 HYPERTENSIVE CHRONIC KIDNEY DISEASE W ST 04/29/2017 Phyllis SAEED MD Ot N18.3 CHRONIC KIDNEY DISEASE, STAGE 3 (MODERAT 05/06/2017 Phyllis SAEED MD Ot I12.9 HYPERTENSIVE CHRONIC KIDNEY DISEASE W ST 05/06/2017 Phyllis SAEED MD Ot N18.3 CHRONIC KIDNEY DISEASE, STAGE 3 (MODERAT Procedures Code Description Performed By Performed On [id number] IMMOBILIZATION OF RIGHT LOWER ARM USING 02/16/2017 [id number] INSERTION OF INFUSION DEV INTO SUP VENA 02/17/2017 [id number] LUTHERAN OF CARDIAC RHYTHM, SINGLE 04/04/2017 Results Test Result Range Complete blood count (CBC) with automated white blood cell (WBC) differential - 02/13/17 13:55 Blood leukocytes automated count (number/volume) 5.0 10*3/uL 4.3-11.0 Blood erythrocytes automated count (number/volume) 4.86 10*6/uL 4.35-5.85 Venous blood hemoglobin measurement (mass/volume) 14.0 g/dL 11.5-16.0 Blood hematocrit (volume fraction) 43 % 35-52 Automated erythrocyte mean corpuscular volume 88 [foz_us] 80-99 Automated erythrocyte mean corpuscular hemoglobin (mass per erythrocyte) 29 pg 25-34 Automated erythrocyte mean corpuscular hemoglobin concentration measurement ( mass/volume) 33 g/dL 32-36 Automated erythrocyte distribution width ratio 14.1 % 10.0-14.5 Automated blood platelet count (count/volume) 258 10*3/uL 130-400 Automated blood platelet mean volume measurement 10.4 [foz_us] 7.4-10.4 Automated blood neutrophils/100 leukocytes 75 % 42-75 Automated blood lymphocytes/100 leukocytes 21 % 12-44 Blood monocytes/100 leukocytes 2 % 0-12 Automated blood eosinophils/100 leukocytes 1 % 0-10 Automated blood basophils/100 leukocytes 0 % 0-10 Blood neutrophils automated count (number/volume) 3.8 10*3 1.8-7.8 Blood lymphocytes automated count (number/volume) 1.1 10*3 1.0-4.0 Blood monocytes automated count (number/volume) 0.1 10*3 0.0-1.0 Automated eosinophil count 0.1 10*3/uL 0.0-0.3 Automated blood basophil count (count/volume) 0.0 10*3/uL 0.0-0.1 PT panel in platelet poor plasma by coagulation assay - 02/13/17 13:55 Prothrombin time (PT) in platelet poor plasma by coagulation assay 13.6 s 12.2-14.7 INR in platelet poor plasma or blood by coagulation assay 1.0 0.8-1.4 Activated partial thromboplastin time (aPTT) in platelet poor plasma bycoagulation assay - 02/13/17 13:55 Activated partial thromboplastin time (aPTT) in platelet poor plasma bycoagulation assay 23 s 24-35 Comprehensive metabolic panel - 02/13/17 13:55 Serum or plasma sodium measurement (moles/volume) 138 mmol/L 135-145 Serum or plasma potassium measurement (moles/volume) 5.0 mmol/L 3.6-5.0 Serum or plasma chloride measurement (moles/volume) 106 mmol/L 98-107 Carbon dioxide 18 mmol/L 21-32 Serum or plasma anion gap determination (moles/volume) 14 mmol/L 5-14 Serum or plasma urea nitrogen measurement (mass/volume) 41 mg/dL 7-18 Serum or plasma creatinine measurement (mass/volume) 2.14 mg/dL 0.60-1.30 Serum or plasma urea nitrogen/creatinine mass ratio 19 NRG Serum or plasma creatinine measurement with calculation of estimated glomerular filtration rate 22 NRG Serum or plasma glucose measurement (mass/volume) 204 mg/dL 70-105 Serum or plasma calcium measurement (mass/volume) 9.7 mg/dL 8.5-10.1 Serum or plasma total bilirubin measurement (mass/volume) 0.9 mg/dL 0.1-1.0 Serum or plasma alkaline phosphatase measurement (enzymatic activity/volume) 59 U/L 40-136 Serum or plasma aspartate aminotransferase measurement (enzymatic activity/ volume) 26 U/L 5-34 Serum or plasma alanine aminotransferase measurement (enzymatic activity/volume ) 16 U/L 0-55 Serum or plasma protein measurement (mass/volume) 6.8 g/dL 6.4-8.2 Serum or plasma albumin measurement (mass/volume) 3.9 g/dL 3.2-4.5 Blood lactic acid measurement (moles/volume) - 02/13/17 13:55 Blood lactic acid measurement (moles/volume) 3.25 mmol/L 0.50-2.00 Bacterial blood culture - 02/13/17 14:06 FREE TEXT EXTERNAL SENSISTIVITY REPORTED ON BLOOD CULTURE NR QUANTITY OF GROWTH Isolated BANNER Bacterial blood culture [id number] BANNER FREE TEXT ENTRY 2 [id number] 02/16 06:25 BANNER Bacterial blood culture - 02/13/17 14:28 FREE TEXT EXTERNAL SENSITIVITY REPORTED 02/16 06:25 BANNER QUANTITY OF GROWTH Isolated BANNER Bacterial blood culture [id number] BANNER Bacterial susceptibility panel - 02/13/17 14:28 Oxacillin susceptibility test by minimum inhibitory concentration < = NRG Gentamicin susceptibility test by minimum inhibitory concentration < = NRG Clindamycin susceptibility test by minimum inhibitory concentration <= NRG Erythromycin susceptibility test by minimum inhibitory concentration 0.5 NRG Trimethoprim/sulfamethoxazole susceptibility test by minimum inhibitoryconcentration <= NRG Vancomycin susceptibility test by minimum inhibitory concentration < = NRG Levofloxacin susceptibility test by minimum inhibitory concentration 4 NRG Rifampin susceptibility test by minimum inhibitory concentration <= NRG Tetracycline susceptibility test by minimum inhibitory concentration <= NRG Ciprofloxacin susceptibility test by minimum inhibitory concentration I NRG Complete urinalysis with reflex to culture - 02/13/17 16:20 Urine color determination JOSE ARMANDO NRG Urine clarity determination VERY CLOUDY NRG Urine pH measurement by test strip 5 5-9 Specific gravity of urine by test strip 1.015 1.016- 1.022 Urine protein assay by test strip, semi-quantitative 4+ NEGATIVE Urine glucose detection by automated test strip NEGATIVE NEGATIVE Erythrocytes detection in urine sediment by light microscopy 1+ NEGATIVE Urine ketones detection by automated test strip 1+ NEGATIVE Urine nitrite detection by test strip NEGATIVE NEGATIVE Urine total bilirubin detection by test strip 1+ NEGATIVE Urine urobilinogen measurement by automated test strip (mass/volume) 4 mg/dL NORMAL Urine leukocyte esterase detection by dipstick 1+ NEGATIVE Automated urine sediment erythrocyte count by microscopy (number/high power field) NONE NRG Automated urine sediment leukocyte count by microscopy (number/high power field ) [HPF] NRG Bacteria detection in urine sediment by light microscopy FEW NRG Squamous epithelial cells detection in urine sediment by light microscopy 10-25 NRG Crystals detection in urine sediment by light microscopy NONE NRG Casts detection in urine sediment by light microscopy NONE NRG Mucus detection in urine sediment by light microscopy NEGATIVE NRG Complete urinalysis with reflex to culture YES NRG Amorphous sediment detection in urine sediment by light microscopy MOD JASIEL URATES NRG Bacterial urine culture - 02/13/17 16:20 Bacterial urine culture NG NRG Serum or plasma lactate measurement (moles/volume) - 02/13/17 16:55 Serum or plasma lactate measurement (moles/volume) 0.87 mmol/L 0.50-2.00 Blood lactic acid measurement (moles/volume) - 02/13/17 20:25 Blood lactic acid measurement (moles/volume) 1.51 mmol/L 0.50-2.00 Stool occult blood screen - 02/14/17 03:50 Stool gastrointestinal hemoglobin detection POSITIVE NEGATIVE C DIFFICILE AG + TOXIN A/B. - 02/14/17 03:50 RESULTS NEGATIVE FOR ANTIGEN AND TOXIN A/B NRG Complete blood count (CBC) with automated white blood cell (WBC) differential - 02/14/17 04:10 Blood leukocytes automated count (number/volume) 23.0 10*3/uL 4.3-11.0 Blood erythrocytes automated count (number/volume) 3.83 10*6/uL 4.35-5.85 Venous blood hemoglobin measurement (mass/volume) 11.2 g/dL 11.5-16.0 Blood hematocrit (volume fraction) 34 % 35-52 Automated erythrocyte mean corpuscular volume 90 [foz_us] 80-99 Automated erythrocyte mean corpuscular hemoglobin (mass per erythrocyte) 29 pg 25-34 Automated erythrocyte mean corpuscular hemoglobin concentration measurement ( mass/volume) 33 g/dL 32-36 Automated erythrocyte distribution width ratio 14.0 % 10.0-14.5 Automated blood platelet count (count/volume) 209 10*3/uL 130-400 Automated blood platelet mean volume measurement 10.3 [foz_us] 7.4-10.4 Automated blood neutrophils/100 leukocytes 93 % 42-75 Automated blood lymphocytes/100 leukocytes 3 % 12-44 Blood monocytes/100 leukocytes 4 % 0-12 Automated blood eosinophils/100 leukocytes 0 % 0-10 Automated blood basophils/100 leukocytes 0 % 0-10 Blood neutrophils automated count (number/volume) 21.4 10*3 1.8-7.8 Blood lymphocytes automated count (number/volume) 0.7 10*3 1.0-4.0 Blood monocytes automated count (number/volume) 0.8 10*3 0.0-1.0 Automated eosinophil count 0.0 10*3/uL 0.0-0.3 Automated blood basophil count (count/volume) 0.0 10*3/uL 0.0-0.1 Comprehensive metabolic panel - 02/14/17 04:10 Serum or plasma sodium measurement (moles/volume) 140 mmol/L 135-145 Serum or plasma potassium measurement (moles/volume) 4.5 mmol/L 3.6-5.0 Serum or plasma chloride measurement (moles/volume) 113 mmol/L 98-107 Carbon dioxide 16 mmol/L 21-32 Serum or plasma anion gap determination (moles/volume) 11 mmol/L 5-14 Serum or plasma urea nitrogen measurement (mass/volume) 34 mg/dL 7-18 Serum or plasma creatinine measurement (mass/volume) 1.45 mg/dL 0.60-1.30 Serum or plasma urea nitrogen/creatinine mass ratio 23 NRG Serum or plasma creatinine measurement with calculation of estimated glomerular filtration rate 34 NRG Serum or plasma glucose measurement (mass/volume) 149 mg/dL 70-105 Serum or plasma calcium measurement (mass/volume) 7.8 mg/dL 8.5-10.1 Serum or plasma total bilirubin measurement (mass/volume) 0.6 mg/dL 0.1-1.0 Serum or plasma alkaline phosphatase measurement (enzymatic activity/volume) 49 U/L 40-136 Serum or plasma aspartate aminotransferase measurement (enzymatic activity/ volume) 20 U/L 5-34 Serum or plasma alanine aminotransferase measurement (enzymatic activity/volume ) 15 U/L 0-55 Serum or plasma protein measurement (mass/volume) 5.4 g/dL 6.4-8.2 Serum or plasma albumin measurement (mass/volume) 3.2 g/dL 3.2-4.5 Serum or plasma phosphate measurement (mass/volume) - 02/14/17 04:10 Serum or plasma phosphate measurement (mass/volume) 3.7 mg/dL 2.3-4.7 Magnesium - 02/14/17 04:10 Magnesium 1.6 mg/dL 1.8-2.4 Blood manual differential performed detection - 02/14/17 04:10 Blood monocytes/100 leukocytes 1 % NRG Manual blood segmented neutrophils/100 leukocytes 96 % NRG Blood band neutrophils/100 leukocytes 2 % NRG Manual blood lymphocytes/100 leukocytes 1 % NRG Manual eosinophils/100 leukocytes in nose 0 % NRG Manual blood basophils/100 leukocytes 0 % NRG Blood ovalocytes detection by light microscopy SLIGHT NRG Blood toxic granules detection by light microscopy 1+ NRG Complete urinalysis with reflex to culture - 02/14/17 09:05 Urine color determination YELLOW NRG Urine clarity determination CLEAR NRG Urine pH measurement by test strip 5 5-9 Specific gravity of urine by test strip 1.020 1.016- 1.022 Urine protein assay by test strip, semi-quantitative 3+ NEGATIVE Urine glucose detection by automated test strip NEGATIVE NEGATIVE Erythrocytes detection in urine sediment by light microscopy 4+ NEGATIVE Urine ketones detection by automated test strip NEGATIVE NEGATIVE Urine nitrite detection by test strip NEGATIVE NEGATIVE Urine total bilirubin detection by test strip NEGATIVE NEGATIVE Urine urobilinogen measurement by automated test strip (mass/volume) NORMAL NORMAL Urine leukocyte esterase detection by dipstick 1+ NEGATIVE Automated urine sediment erythrocyte count by microscopy (number/high power field) NONE NRG Automated urine sediment leukocyte count by microscopy (number/high power field ) NONE NRG Bacteria detection in urine sediment by light microscopy TRACE NRG Crystals detection in urine sediment by light microscopy NONE NRG Casts detection in urine sediment by light microscopy NONE NRG Mucus detection in urine sediment by light microscopy NEGATIVE NRG Complete urinalysis with reflex to culture NO NRG Capillary blood glucose measurement by glucometer (mass/volume) - 02/14/17 12: 09 Capillary blood glucose measurement by glucometer (mass/volume) 105 mg/dL 70-110 Complete blood count (CBC) with automated white blood cell (WBC) differential - 02/15/17 05:46 Blood leukocytes automated count (number/volume) 21.6 10*3/uL 4.3-11.0 Blood erythrocytes automated count (number/volume) 3.28 10*6/uL 4.35-5.85 Venous blood hemoglobin measurement (mass/volume) 9.5 g/dL 11.5-16.0 Blood hematocrit (volume fraction) 30 % 35-52 Automated erythrocyte mean corpuscular volume 91 [foz_us] 80-99 Automated erythrocyte mean corpuscular hemoglobin (mass per erythrocyte) 29 pg 25-34 Automated erythrocyte mean corpuscular hemoglobin concentration measurement ( mass/volume) 32 g/dL 32-36 Automated erythrocyte distribution width ratio 14.1 % 10.0-14.5 Automated blood platelet count (count/volume) 157 10*3/uL 130-400 Automated blood platelet mean volume measurement 10.9 [foz_us] 7.4-10.4 Automated blood neutrophils/100 leukocytes 91 % 42-75 Automated blood lymphocytes/100 leukocytes 3 % 12-44 Blood monocytes/100 leukocytes 6 % 0-12 Automated blood eosinophils/100 leukocytes 0 % 0-10 Automated blood basophils/100 leukocytes 0 % 0-10 Blood neutrophils automated count (number/volume) 19.6 10*3 1.8-7.8 Blood lymphocytes automated count (number/volume) 0.7 10*3 1.0-4.0 Blood monocytes automated count (number/volume) 1.3 10*3 0.0-1.0 Automated eosinophil count 0.0 10*3/uL 0.0-0.3 Automated blood basophil count (count/volume) 0.0 10*3/uL 0.0-0.1 Comprehensive metabolic panel - 02/15/17 05:46 Serum or plasma sodium measurement (moles/volume) 137 mmol/L 135-145 Serum or plasma potassium measurement (moles/volume) 4.1 mmol/L 3.6-5.0 Serum or plasma chloride measurement (moles/volume) 112 mmol/L 98-107 Carbon dioxide 18 mmol/L 21-32 Serum or plasma anion gap determination (moles/volume) 7 mmol/L 5-14 Serum or plasma urea nitrogen measurement (mass/volume) 20 mg/dL 7-18 Serum or plasma creatinine measurement (mass/volume) 1.05 mg/dL 0.60-1.30 Serum or plasma urea nitrogen/creatinine mass ratio 19 NRG Serum or plasma creatinine measurement with calculation of estimated glomerular filtration rate 50 NRG Serum or plasma glucose measurement (mass/volume) 127 mg/dL 70-105 Serum or plasma calcium measurement (mass/volume) 7.6 mg/dL 8.5-10.1 Serum or plasma total bilirubin measurement (mass/volume) 0.5 mg/dL 0.1-1.0 Serum or plasma alkaline phosphatase measurement (enzymatic activity/volume) 43 U/L 40-136 Serum or plasma aspartate aminotransferase measurement (enzymatic activity/ volume) 17 U/L 5-34 Serum or plasma alanine aminotransferase measurement (enzymatic activity/volume ) 11 U/L 0-55 Serum or plasma protein measurement (mass/volume) 4.9 g/dL 6.4-8.2 Serum or plasma albumin measurement (mass/volume) 2.8 g/dL 3.2-4.5 Magnesium - 02/15/17 05:46 Magnesium 1.3 mg/dL 1.8-2.4 Complete blood count (CBC) with automated white blood cell (WBC) differential - 02/16/17 05:10 Blood leukocytes automated count (number/volume) 13.8 10*3/uL 4.3-11.0 Blood erythrocytes automated count (number/volume) 3.05 10*6/uL 4.35-5.85 Venous blood hemoglobin measurement (mass/volume) 8.7 g/dL 11.5-16.0 Blood hematocrit (volume fraction) 28 % 35-52 Automated erythrocyte mean corpuscular volume 91 [foz_us] 80-99 Automated erythrocyte mean corpuscular hemoglobin (mass per erythrocyte) 29 pg 25-34 Automated erythrocyte mean corpuscular hemoglobin concentration measurement ( mass/volume) 31 g/dL 32-36 Automated erythrocyte distribution width ratio 13.9 % 10.0-14.5 Automated blood platelet count (count/volume) 133 10*3/uL 130-400 Automated blood platelet mean volume measurement 10.7 [foz_us] 7.4-10.4 Automated blood neutrophils/100 leukocytes 85 % 42-75 Automated blood lymphocytes/100 leukocytes 6 % 12-44 Blood monocytes/100 leukocytes 8 % 0-12 Automated blood eosinophils/100 leukocytes 1 % 0-10 Automated blood basophils/100 leukocytes 0 % 0-10 Blood neutrophils automated count (number/volume) 11.7 10*3 1.8-7.8 Blood lymphocytes automated count (number/volume) 0.9 10*3 1.0-4.0 Blood monocytes automated count (number/volume) 1.1 10*3 0.0-1.0 Automated eosinophil count 0.1 10*3/uL 0.0-0.3 Automated blood basophil count (count/volume) 0.0 10*3/uL 0.0-0.1 Comprehensive metabolic panel - 02/16/17 05:10 Serum or plasma sodium measurement (moles/volume) 134 mmol/L 135-145 Serum or plasma potassium measurement (moles/volume) 4.2 mmol/L 3.6-5.0 Serum or plasma chloride measurement (moles/volume) 112 mmol/L 98-107 Carbon dioxide 16 mmol/L 21-32 Serum or plasma anion gap determination (moles/volume) 6 mmol/L 5-14 Serum or plasma urea nitrogen measurement (mass/volume) 23 mg/dL 7-18 Serum or plasma creatinine measurement (mass/volume) 1.48 mg/dL 0.60-1.30 Serum or plasma urea nitrogen/creatinine mass ratio 16 NRG Serum or plasma creatinine measurement with calculation of estimated glomerular filtration rate 33 NRG Serum or plasma glucose measurement (mass/volume) 100 mg/dL 70-105 Serum or plasma calcium measurement (mass/volume) 7.8 mg/dL 8.5-10.1 Serum or plasma total bilirubin measurement (mass/volume) 0.5 mg/dL 0.1-1.0 Serum or plasma alkaline phosphatase measurement (enzymatic activity/volume) 41 U/L 40-136 Serum or plasma aspartate aminotransferase measurement (enzymatic activity/ volume) 15 U/L 5-34 Serum or plasma alanine aminotransferase measurement (enzymatic activity/volume ) 9 U/L 0-55 Serum or plasma protein measurement (mass/volume) 4.8 g/dL 6.4-8.2 Serum or plasma albumin measurement (mass/volume) 2.6 g/dL 3.2-4.5 Magnesium - 02/16/17 05:10 Magnesium 1.9 mg/dL 1.8-2.4 Serum or plasma lithium measurement (moles/volume) - 02/16/17 05:10 BNP level 819.6 pg/mL <100.0 Vancomycin trough - 02/16/17 09:32 Vancomycin trough 20.4 ug/mL 10.0-20.0 Fibrin D-dimer FEU measurement in platelet poor plasma (mass/volume) - 09:32 Fibrin D-dimer FEU measurement in platelet poor plasma (mass/volume) 2.27 ug/mL 0.00-0.49 Complete blood count (CBC) with automated white blood cell (WBC) differential - 02/17/17 05:37 Blood leukocytes automated count (number/volume) 8.7 10*3/uL 4.3-11.0 Blood erythrocytes automated count (number/volume) 3.29 10*6/uL 4.35-5.85 Venous blood hemoglobin measurement (mass/volume) 9.5 g/dL 11.5-16.0 Blood hematocrit (volume fraction) 30 % 35-52 Automated erythrocyte mean corpuscular volume 91 [foz_us] 80-99 Automated erythrocyte mean corpuscular hemoglobin (mass per erythrocyte) 29 pg 25-34 Automated erythrocyte mean corpuscular hemoglobin concentration measurement ( mass/volume) 32 g/dL 32-36 Automated erythrocyte distribution width ratio 13.9 % 10.0-14.5 Automated blood platelet count (count/volume) 184 10*3/uL 130-400 Automated blood platelet mean volume measurement 10.6 [foz_us] 7.4-10.4 Automated blood neutrophils/100 leukocytes 77 % 42-75 Automated blood lymphocytes/100 leukocytes 12 % 12-44 Blood monocytes/100 leukocytes 10 % 0-12 Automated blood eosinophils/100 leukocytes 2 % 0-10 Automated blood basophils/100 leukocytes 0 % 0-10 Blood neutrophils automated count (number/volume) 6.7 10*3 1.8-7.8 Blood lymphocytes automated count (number/volume) 1.1 10*3 1.0-4.0 Blood monocytes automated count (number/volume) 0.8 10*3 0.0-1.0 Automated eosinophil count 0.1 10*3/uL 0.0-0.3 Automated blood basophil count (count/volume) 0.0 10*3/uL 0.0-0.1 Whole blood basic metabolic panel - 02/17/17 05:37 Serum or plasma sodium measurement (moles/volume) 136 mmol/L 135-145 Serum or plasma potassium measurement (moles/volume) 4.1 mmol/L 3.6-5.0 Serum or plasma chloride measurement (moles/volume) 108 mmol/L 98-107 Carbon dioxide 18 mmol/L 21-32 Serum or plasma anion gap determination (moles/volume) 10 mmol/L 5-14 Serum or plasma urea nitrogen measurement (mass/volume) 31 mg/dL 7-18 Serum or plasma creatinine measurement (mass/volume) 1.72 mg/dL 0.60-1.30 Serum or plasma urea nitrogen/creatinine mass ratio 18 NRG Serum or plasma creatinine measurement with calculation of estimated glomerular filtration rate 28 NRG Serum or plasma glucose measurement (mass/volume) 89 mg/dL 70-105 Serum or plasma calcium measurement (mass/volume) 8.6 mg/dL 8.5-10.1 Magnesium - 02/17/17 05:37 Magnesium 1.8 mg/dL 1.8-2.4 Vancomycin trough - 02/17/17 16:25 Vancomycin trough 19.3 ug/mL 10.0-20.0 Vancomycin trough - 02/17/17 22:10 Vancomycin trough 34.9 ug/mL 10.0-20.0 Complete blood count (CBC) with automated white blood cell (WBC) differential - 02/18/17 06:25 Blood leukocytes automated count (number/volume) 8.1 10*3/uL 4.3-11.0 Blood erythrocytes automated count (number/volume) 3.10 10*6/uL 4.35-5.85 Venous blood hemoglobin measurement (mass/volume) 8.9 g/dL 11.5-16.0 Blood hematocrit (volume fraction) 28 % 35-52 Automated erythrocyte mean corpuscular volume 89 [foz_us] 80-99 Automated erythrocyte mean corpuscular hemoglobin (mass per erythrocyte) 29 pg 25-34 Automated erythrocyte mean corpuscular hemoglobin concentration measurement ( mass/volume) 32 g/dL 32-36 Automated erythrocyte distribution width ratio 13.7 % 10.0-14.5 Automated blood platelet count (count/volume) 212 10*3/uL 130-400 Automated blood platelet mean volume measurement 10.0 [foz_us] 7.4-10.4 Automated blood neutrophils/100 leukocytes 79 % 42-75 Automated blood lymphocytes/100 leukocytes 10 % 12-44 Blood monocytes/100 leukocytes 10 % 0-12 Automated blood eosinophils/100 leukocytes 2 % 0-10 Automated blood basophils/100 leukocytes 0 % 0-10 Blood neutrophils automated count (number/volume) 6.4 10*3 1.8-7.8 Blood lymphocytes automated count (number/volume) 0.8 10*3 1.0-4.0 Blood monocytes automated count (number/volume) 0.8 10*3 0.0-1.0 Automated eosinophil count 0.1 10*3/uL 0.0-0.3 Automated blood basophil count (count/volume) 0.0 10*3/uL 0.0-0.1 Whole blood basic metabolic panel - 02/18/17 06:25 Serum or plasma sodium measurement (moles/volume) 137 mmol/L 135-145 Serum or plasma potassium measurement (moles/volume) 4.5 mmol/L 3.6-5.0 Serum or plasma chloride measurement (moles/volume) 111 mmol/L 98-107 Carbon dioxide 19 mmol/L 21-32 Serum or plasma anion gap determination (moles/volume) 7 mmol/L 5-14 Serum or plasma urea nitrogen measurement (mass/volume) 32 mg/dL 7-18 Serum or plasma creatinine measurement (mass/volume) 1.39 mg/dL 0.60-1.30 Serum or plasma urea nitrogen/creatinine mass ratio 23 NRG Serum or plasma creatinine measurement with calculation of estimated glomerular filtration rate 36 NRG Serum or plasma glucose measurement (mass/volume) 102 mg/dL 70-105 Serum or plasma calcium measurement (mass/volume) 8.7 mg/dL 8.5-10.1 Magnesium - 02/18/17 06:25 Magnesium 1.6 mg/dL 1.8-2.4 Vancomycin trough - 02/18/17 14:05 Vancomycin trough 24.8 ug/mL 10.0-20.0 Automated blood complete blood count (hemogram) panel - 02/19/17 06:23 Blood leukocytes automated count (number/volume) 7.5 10*3/uL 4.3-11.0 Blood erythrocytes automated count (number/volume) 3.19 10*6/uL 4.35-5.85 Venous blood hemoglobin measurement (mass/volume) 9.2 g/dL 11.5-16.0 Blood hematocrit (volume fraction) 28 % 35-52 Automated erythrocyte mean corpuscular volume 89 [foz_us] 80-99 Automated erythrocyte mean corpuscular hemoglobin (mass per erythrocyte) 29 pg 25-34 Automated erythrocyte mean corpuscular hemoglobin concentration measurement ( mass/volume) 32 g/dL 32-36 Automated erythrocyte distribution width ratio 13.9 % 10.0-14.5 Automated blood platelet count (count/volume) 229 10*3/uL 130-400 Automated blood platelet mean volume measurement 9.9 [foz_us] 7.4-10.4 Comprehensive metabolic panel - 02/19/17 06:23 Serum or plasma sodium measurement (moles/volume) 139 mmol/L 135-145 Serum or plasma potassium measurement (moles/volume) 4.1 mmol/L 3.6-5.0 Serum or plasma chloride measurement (moles/volume) 111 mmol/L 98-107 Carbon dioxide 20 mmol/L 21-32 Serum or plasma anion gap determination (moles/volume) 8 mmol/L 5-14 Serum or plasma urea nitrogen measurement (mass/volume) 27 mg/dL 7-18 Serum or plasma creatinine measurement (mass/volume) 1.18 mg/dL 0.60-1.30 Serum or plasma urea nitrogen/creatinine mass ratio 23 NRG Serum or plasma creatinine measurement with calculation of estimated glomerular filtration rate 43 NRG Serum or plasma glucose measurement (mass/volume) 99 mg/dL 70-105 Serum or plasma calcium measurement (mass/volume) 8.8 mg/dL 8.5-10.1 Serum or plasma total bilirubin measurement (mass/volume) 0.6 mg/dL 0.1-1.0 Serum or plasma alkaline phosphatase measurement (enzymatic activity/volume) 46 U/L 40-136 Serum or plasma aspartate aminotransferase measurement (enzymatic activity/ volume) 13 U/L 5-34 Serum or plasma alanine aminotransferase measurement (enzymatic activity/volume ) 10 U/L 0-55 Serum or plasma protein measurement (mass/volume) 5.6 g/dL 6.4-8.2 Serum or plasma albumin measurement (mass/volume) 3.1 g/dL 3.2-4.5 Vancomycin trough - 02/19/17 14:35 Vancomycin trough 17.2 ug/mL 10.0-20.0 Automated blood complete blood count (hemogram) panel - 02/21/17 05:52 Blood leukocytes automated count (number/volume) 8.9 10*3/uL 4.3-11.0 Blood erythrocytes automated count (number/volume) 3.22 10*6/uL 4.35-5.85 Venous blood hemoglobin measurement (mass/volume) 9.3 g/dL 11.5-16.0 Blood hematocrit (volume fraction) 29 % 35-52 Automated erythrocyte mean corpuscular volume 89 [foz_us] 80-99 Automated erythrocyte mean corpuscular hemoglobin (mass per erythrocyte) 29 pg 25-34 Automated erythrocyte mean corpuscular hemoglobin concentration measurement ( mass/volume) 32 g/dL 32-36 Automated erythrocyte distribution width ratio 14.2 % 10.0-14.5 Automated blood platelet count (count/volume) 286 10*3/uL 130-400 Automated blood platelet mean volume measurement 10.1 [foz_us] 7.4-10.4 Whole blood basic metabolic panel - 02/21/17 05:52 Serum or plasma sodium measurement (moles/volume) 140 mmol/L 135-145 Serum or plasma potassium measurement (moles/volume) 4.2 mmol/L 3.6-5.0 Serum or plasma chloride measurement (moles/volume) 108 mmol/L 98-107 Carbon dioxide 23 mmol/L 21-32 Serum or plasma anion gap determination (moles/volume) 9 mmol/L 5-14 Serum or plasma urea nitrogen measurement (mass/volume) 24 mg/dL 7-18 Serum or plasma creatinine measurement (mass/volume) 1.34 mg/dL 0.60-1.30 Serum or plasma urea nitrogen/creatinine mass ratio 18 NRG Serum or plasma creatinine measurement with calculation of estimated glomerular filtration rate 37 NRG Serum or plasma glucose measurement (mass/volume) 100 mg/dL 70-105 Serum or plasma calcium measurement (mass/volume) 8.6 mg/dL 8.5-10.1 Automated blood complete blood count (hemogram) panel - 02/23/17 06:06 Blood leukocytes automated count (number/volume) 7.2 10*3/uL 4.3-11.0 Blood erythrocytes automated count (number/volume) 3.21 10*6/uL 4.35-5.85 Venous blood hemoglobin measurement (mass/volume) 9.1 g/dL 11.5-16.0 Blood hematocrit (volume fraction) 29 % 35-52 Automated erythrocyte mean corpuscular volume 89 [foz_us] 80-99 Automated erythrocyte mean corpuscular hemoglobin (mass per erythrocyte) 28 pg 25-34 Automated erythrocyte mean corpuscular hemoglobin concentration measurement ( mass/volume) 32 g/dL 32-36 Automated erythrocyte distribution width ratio 14.4 % 10.0-14.5 Automated blood platelet count (count/volume) 297 10*3/uL 130-400 Automated blood platelet mean volume measurement 9.6 [foz_us] 7.4-10.4 Whole blood basic metabolic panel - 02/23/17 06:06 Serum or plasma sodium measurement (moles/volume) 139 mmol/L 135-145 Serum or plasma potassium measurement (moles/volume) 4.4 mmol/L 3.6-5.0 Serum or plasma chloride measurement (moles/volume) 106 mmol/L 98-107 Carbon dioxide 25 mmol/L 21-32 Serum or plasma anion gap determination (moles/volume) 8 mmol/L 5-14 Serum or plasma urea nitrogen measurement (mass/volume) 27 mg/dL 7-18 Serum or plasma creatinine measurement (mass/volume) 1.54 mg/dL 0.60-1.30 Serum or plasma urea nitrogen/creatinine mass ratio 18 NRG Serum or plasma creatinine measurement with calculation of estimated glomerular filtration rate 32 NRG Serum or plasma glucose measurement (mass/volume) 96 mg/dL 70-105 Serum or plasma calcium measurement (mass/volume) 8.4 mg/dL 8.5-10.1 Complete blood count (CBC) with automated white blood cell (WBC) differential - 04/03/17 12:48 Blood leukocytes automated count (number/volume) 6.9 10*3/uL 4.3-11.0 Blood erythrocytes automated count (number/volume) 4.20 10*6/uL 4.35-5.85 Venous blood hemoglobin measurement (mass/volume) 12.1 g/dL 11.5-16.0 Blood hematocrit (volume fraction) 37 % 35-52 Automated erythrocyte mean corpuscular volume 88 [foz_us] 80-99 Automated erythrocyte mean corpuscular hemoglobin (mass per erythrocyte) 29 pg 25-34 Automated erythrocyte mean corpuscular hemoglobin concentration measurement ( mass/volume) 33 g/dL 32-36 Automated erythrocyte distribution width ratio 13.6 % 10.0-14.5 Automated blood platelet count (count/volume) 280 10*3/uL 130-400 Automated blood platelet mean volume measurement 10.3 [foz_us] 7.4-10.4 Automated blood neutrophils/100 leukocytes 73 % 42-75 Automated blood lymphocytes/100 leukocytes 18 % 12-44 Blood monocytes/100 leukocytes 8 % 0-12 Automated blood eosinophils/100 leukocytes 1 % 0-10 Automated blood basophils/100 leukocytes 0 % 0-10 Blood neutrophils automated count (number/volume) 5.0 10*3 1.8-7.8 Blood lymphocytes automated count (number/volume) 1.2 10*3 1.0-4.0 Blood monocytes automated count (number/volume) 0.5 10*3 0.0-1.0 Automated eosinophil count 0.1 10*3/uL 0.0-0.3 Automated blood basophil count (count/volume) 0.0 10*3/uL 0.0-0.1 Comprehensive metabolic panel - 04/03/17 12:48 Serum or plasma sodium measurement (moles/volume) 140 mmol/L 135-145 Serum or plasma potassium measurement (moles/volume) 4.7 mmol/L 3.6-5.0 Serum or plasma chloride measurement (moles/volume) 107 mmol/L 98-107 Carbon dioxide 22 mmol/L 21-32 Serum or plasma anion gap determination (moles/volume) 11 mmol/L 5-14 Serum or plasma urea nitrogen measurement (mass/volume) 36 mg/dL 7-18 Serum or plasma creatinine measurement (mass/volume) 1.70 mg/dL 0.60-1.30 Serum or plasma urea nitrogen/creatinine mass ratio 21 NRG Serum or plasma creatinine measurement with calculation of estimated glomerular filtration rate 28 NRG Serum or plasma glucose measurement (mass/volume) 100 mg/dL 70-105 Serum or plasma calcium measurement (mass/volume) 9.3 mg/dL 8.5-10.1 Serum or plasma total bilirubin measurement (mass/volume) 0.6 mg/dL 0.1-1.0 Serum or plasma alkaline phosphatase measurement (enzymatic activity/volume) 52 U/L 40-136 Serum or plasma aspartate aminotransferase measurement (enzymatic activity/ volume) 12 U/L 5-34 Serum or plasma alanine aminotransferase measurement (enzymatic activity/volume ) 8 U/L 0-55 Serum or plasma protein measurement (mass/volume) 7.0 g/dL 6.4-8.2 Serum or plasma albumin measurement (mass/volume) 4.0 g/dL 3.2-4.5 Serum or plasma troponin i.cardiac measurement (mass/volume) - 04/03/17 12:48 Serum or plasma troponin i.cardiac measurement (mass/volume) < ng/ mL <0.30 Complete urinalysis with reflex to culture - 04/03/17 13:49 Urine color determination YELLOW NRG Urine clarity determination CLEAR NRG Urine pH measurement by test strip 5 5-9 Specific gravity of urine by test strip 1.010 1.016- 1.022 Urine protein assay by test strip, semi-quantitative 1+ NEGATIVE Urine glucose detection by automated test strip NEGATIVE NEGATIVE Erythrocytes detection in urine sediment by light microscopy NEGATIVE NEGATIVE Urine ketones detection by automated test strip NEGATIVE NEGATIVE Urine nitrite detection by test strip NEGATIVE NEGATIVE Urine total bilirubin detection by test strip NEGATIVE NEGATIVE Urine urobilinogen measurement by automated test strip (mass/volume) NORMAL NORMAL Urine leukocyte esterase detection by dipstick 2+ NEGATIVE Automated urine sediment erythrocyte count by microscopy (number/high power field) RARE NRG Automated urine sediment leukocyte count by microscopy (number/high power field ) [HPF] NRG Bacteria detection in urine sediment by light microscopy NEGATIVE NRG Squamous epithelial cells detection in urine sediment by light microscopy 0-2 NRG Crystals detection in urine sediment by light microscopy NONE NRG Casts detection in urine sediment by light microscopy NONE NRG Mucus detection in urine sediment by light microscopy NEGATIVE NRG Complete urinalysis with reflex to culture NO NRG Methicillin resistant Staphylococcus aureus (MRSA) screening culture - 15:40 Methicillin resistant Staphylococcus aureus (MRSA) screening culture NEG NRG Encounters ACCT No. Visit Date/Time Discharge Status Pt. Type Provider Facility Loc./Unit Complaint [id number] 04/06/2017 12:45:00 04/06/2017 23:59:59 CLS Outpatient Phyllis SAEED MD [facility] RAD N18.3 [id number] 04/03/2017 14:05:00 04/04/2017 17:50:00 DIS Inpatient RAH ANGELES MD [facility] ICU A-FIB W/ RVR [id number] 02/18/2017 09:23:00 02/23/2017 14:40:00 DIS Inpatient RAH ANGELES MD [facility] 4TH SWB-SEPSIS,RENAL FAILURE, HYPERTENSION,WEAKNESS [id number] 02/13/2017 17:00:00 02/18/2017 09:15:00 DIS Inpatient RAH ANGELES MD [facility] 4TH HYPOTENSION,UTI,DIARRHEA, RT ULNA FX [id number] 01/16/2016 12:47:00 01/16/2016 23:59:59 CLS Outpatient MUNIRA HINOJOSA MD [facility] RAD BLAD CA-C67.9 [id number] 04/02/2015 16:35:00 04/02/2015 23:59:59 CLS Outpatient J LUIS ANAYA APRN [facility] RAD LEFT LOWER EXTREMITY SWELLING,POPLITEAL PAIN [id number] 03/02/2014 12:50:00 03/21/2014 13:29:00 DIS Outpatient JESIKA HIGGINS MD [facility] REHAB S/P L DISTAL RADIUS FX [id number] 11/30/2013 07:32:00 11/30/2013 09:26:00 DIS Emergency MARCE ALBARRAN DO [facility] ER FALL/LEFT WRIST INJURY [id number] 09/16/2013 07:56:00 09/16/2013 23:59:59 CLS Outpatient MUNIRA HINOJOSA MD [facility] RAD GROSS HEMATURIA [id number] 08/31/2013 11:33:00 08/31/2013 23:59:59 CLS Outpatient RAH ANGELES MD [facility] LAB GROSS HEMATURIA [id number] 05/14/2013 11:30:00 05/17/2013 11:42:00 DIS Inpatient RAH ANGELES MD [facility] 4TH PNEUMONIA BILAT,ACUTE RENAL FAILURE,VOLUME OVERLOA [id number] 03/05/2013 13:46:00 03/05/2013 16:21:00 DIS Emergency SHAZIA BECKER APRN [facility] ER POSS KIDNEY INFECTION [id number] 02/16/2013 10:45:00 02/21/2013 16:00:00 DIS Inpatient RAH ANGELES MD [facility] 4TH SYNCOPE,NECK SWELLING [id number] 05/28/2017 09:13:00 ACT Outpatient Phyllis SAEED MD [facility] CATH AFE RVR [id number] 01/16/2016 12:46:00 Document Registration [id number] 01/16/2016 12:46:00 Document Registration [id number] 01/16/2016 12:46:00 Document Registration [id number] 07/05/2012 10:05:00 Document Registration [id number] 03/03/2012 08:54:00 Document Registration [id number] 10/16/2011 09:55:00 Document Registration [id number] 08/08/2011 11:34:00 Document Registration [id number] 07/17/2011 12:43:00 Document Registration [id number] 06/17/2011 08:34:00 Document Registration [id number] 06/14/2011 09:01:00 Document Registration [id number] 06/10/2011 12:34:00 Document Registration [id number] 02/20/2011 08:16:00 Document Registration [id number] 08/15/2010 08:00:00 Document Registration
== END | disposition home or self-care (01) ==
LOC: CATH 09:13
PROVIDERS: ATTEND Internal Medicine Interventional Cardiology
DX: I48.91 Unspecified atrial fibrillation (principal); I10 Essential (primary) hypertension; E78.2 Mixed hyperlipidemia; R60.0 Localized edema; E03.9 Hypothyroidism, unspecified; F32.9 Major depressive disorder, single episode, unspecified; Z95.0 Presence of cardiac pacemaker; Z79.82 Long term (current) use of aspirin; Z79.899 Other long term (current) drug therapy
CPT/HCPCS: 93005

== ENCOUNTER → 2017-06-12 | Outpatient (CLI) | payer MEDICARE, BC ==
[~2017-06-12] MED LIST changes: -NS IV 1000 ML 1,000 ML IV SCH; -NS IV 1000 ML 1,000 ML ONE
--- NOTE | 2017-06-12 16:01 | Diagnostic Imaging Report ---
INDICATION: Right rib pain x1 week. COMPARISON: Comparison with 04/03/2017 portable chest. FINDINGS: Three views of the right ribs. No rib fractures are demonstrated. There is mild hyperaeration of the right lung. Mild blunting of the right costophrenic angle is noted. No evidence of pneumothorax. IMPRESSION: No acute abnormalities demonstrated right ribs. Dictated by: Dictated on workstation # [id number]
== END ==
LOC: RAD 11:32
PROVIDERS: ATTEND Nurse Practitioner Family
DX: R07.81 Pleurodynia (principal)
CPT/HCPCS: 71100

== ENCOUNTER → 2017-11-26 | Outpatient (CLI) | payer MEDICARE, BC ==
[2017-11-26 15:42] LABS: FREE T4 (FREE THYROXINE) 1.11 NG/DL (0.70-1.48)
== END ==
LOC: LAB 14:26
PROVIDERS: ATTEND Family Medicine
DX: R53.83 Other fatigue (principal); Z86.39 Personal history of other endocrine, nutritional and metabolic disease
CPT/HCPCS: 36415; 84439; 84443

== ENCOUNTER → 2017-11-26 | Outpatient (CLI) | payer MEDICARE, BC ==
[2017-11-26 15:19] LABS: CREATININE SERUM 1.79 MG/DL (0.60-1.30); PHOSPHORUS 3.7 MG/DL (2.3-4.7); POTASSIUM 4.5 MMOL/L (3.6-5.0)
== END ==
LOC: LAB 14:22
PROVIDERS: ATTEND Internal Medicine Nephrology
DX: N28.9 Disorder of kidney and ureter, unspecified (principal)
CPT/HCPCS: 36415; 80069; 84100

== ENCOUNTER 2017-12-07 07:01 | Outpatient (CLI) | payer MEDICARE, BC ==
[2017-12-07] VITALS (9 sets, daily range): BP systolic 170–227; BP diastolic 66–93
[~2017-12-07] VITALS: Ht 165.1 cm; Wt 67.6 kg
[2017-12-07] MEDS ORDERED: LIDOCAINE 1% INJ 20 ML 20 ML VIAL INJ ONE (07:30)
[2017-12-07 07:32] LABS: BASOPHILS % (AUTO) 0 % (0-10); EOSINOPHILS # (AUTO) 0.1 10^3/uL (0.0-0.3); EOSINOPHILS % (AUTO) 1 % (0-10); HEMATOCRIT 32 % (35-52); HEMOGLOBIN 10.5 G/DL (11.5-16.0); LYMPHOCYTES # (AUTO) 1.1 X 10^3 (1.0-4.0); LYMPHOCYTES % (AUTO) 15 % (12-44); MEAN CORPUSCULAR HEMOGLOBIN 29 PG (25-34); MEAN CORPUSCULAR HGB CONC 33 G/DL (32-36); MEAN CORPUSCULAR VOLUME 90 FL (80-99); MEAN PLATELET VOLUME 9.4 FL (7.4-10.4); MONOCYTES # (AUTO) 0.7 X 10^3 (0.0-1.0); MONOCYTES % (AUTO) 10 % (0-12); NEUTROPHILS # (AUTO) 5.3 X 10^3 (1.8-7.8); NEUTROPHILS % (AUTO) 73 % (42-75); PLATELET COUNT 258 10^3/uL (130-400); RED BLOOD COUNT 3.56 10^6/uL (4.35-5.85); RED CELL DISTRIBUTION WIDTH 14.9 % (10.0-14.5); WHITE BLOOD COUNT 7.2 10^3/uL (4.3-11.0)
[2017-12-07 07:43] LABS: PROTHROMBIN TIME PATIENT 13.1 SEC (12.2-14.7)
[2017-12-07 08:44] LABS: ABSOLUTE RETIC # 72 10e9/L (24-90); RETICULOCYTE % 2.01 % (0.50-2.40)
[2017-12-07] MEDS ORDERED: HYDROcodone/APAP 5 MG/325 MG (LORTAB) TAB PO PRN (09:00)
[2017-12-07 09:24] LABS: BAND NEUTROPHILS 0 %; BASOPHILS % (MANUAL) 0 %; EOSINOPHILS % (MANUAL) 3 %; LYMPHOCYTES % (MANUAL) 22 %; MONOCYTES % (MANUAL) 5 %; NEUTROPHILS % (MANUAL) 70 %; RBC MORPH NORMAL
--- NOTE | 2017-12-07 09:24 | Diagnostic Imaging Report ---
INDICATION: Multiple myeloma. TIME OF EXAMINATION: 8:44 AM. COMPARISON: No prior skeletal surveys are available for comparison. FINDINGS: A bone survey including the skull, spine, and ribs as well as the upper and lower extremity long bones was performed. There is a compression fracture of the T12 vertebral body, chronic. No definite osteolytic lesions within the spine or ribs are seen. The long bones of the upper and lower extremities are unremarkable. No osteolytic lesion is seen. The pelvis is unremarkable. The patient does have a cardiac pacemaker with lead tips in the region of the right atrium and right ventricle. 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 No fractures are identified. IMPRESSION: 1. Age indeterminate T12 compression fracture, acute on a CT thoracic spine study from August 2011. 2. No definite osteolytic or blastic lesions are identified. Dictated by: Dictated on workstation # [id number]
--- NOTE | 2017-12-07 09:27 | Diagnostic Imaging Report ---
INDICATION: Multiple myeloma. TECHNIQUE: The patient was brought to the CT suite and placed on the table in the prone position. Axial imaging through the pelvis was performed to evaluate for an appropriate entry site. The skin over the low back was prepped and draped in the usual sterile fashion. A small amount of 1% lidocaine was utilized for local anesthesia. A coaxial biopsy needle was advanced and placed with its tip adjacent to the posterior cortex of the right iliac bone. A bone marrow drill was used to advance the needle into the marrow. Two aspirates were obtained. The drill was then used to obtain a core biopsy of the marrow. The needle was withdrawn and hemostasis was obtained using manual compression. The patient tolerated the procedure well and left the Department in stable condition. IMPRESSION: Successful CT-guided bone marrow aspiration and core biopsy, as described. Dictated by: Dictated on workstation # [id number]
--- NOTE | 2017-12-07 12:01 | Pre-Procedure Progress Note ---
Pre-Procedure Progress Note H&P Reviewed The H&P was reviewed, patient examined and no changes noted. Date H&P Reviewed: Dec 07, 2017 Time H&P Reviewed: 08:00 Pre-Procedure Diagnosis: Multiple Myeloma LOUISE HENRY MD Dec 07, 2017 12:01
--- OUTSIDE RECORDS SUMMARY | 2017-12-07 21:48 | XMS REPORT | CCD ---
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 Name Role Phone Jena Blas PP Unavailable CCM Unavailable Summary Purpose Interface Exchange Insurance Providers Payer name Policy type / Coverage type Covered republican ID Effective Begin Date Effective End Date WPS Medicare Part B Medicare Part B [id number] [address] [facility] Medicare Part B [id number] 2013 Unknown Family history Son Diagnosis Age At Onset Dementia Unknown Father Diagnosis Age At Onset Myocardial infarction Unknown Stroke Unknown Mother Diagnosis Age At Onset Cardiovascular disease Unknown Social History Social History Element Codes Description Effective Dates Marital status Unknown 01/08/2011 Number of children Unknown 5 01/08/2011 Employment Unknown 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 [employer], 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 01/08/[address]: 435168740 Nonsmoker 01/08/[address]: 218893688 Never drinks alcohol 01/08/2011 Allergies, Adverse Reactions, Alerts Substance Reaction Codes Entered Date Inactivated Date Status PENICILLINS hives Unknown 01/08/2011 No Inactive Date Active Past Medical History Illness Codes Condition Status Onset Date Resolved Date Gout, unspecified ICD- 9: 274.9 ICD-10: M10.9 Active 06/11/2017 Unknown Acute laryngopharyngitis ICD-9: 465.0 ICD-10: J06.0 Active 05/05/2017 Unknown Cough ICD-9: 786.2 ICD-10: R05 Active 06/28/2015 Unknown Atrophy of thyroid (acquired) ICD-9: 244.8 ICD-10: E03.4 Active 07/29/2016 Unknown Essential (primary) hypertension ICD-9: 401.1 ICD-10: I10 Active 07/29/2016 Unknown Displaced fracture of right ulna styloid process, subsequent encounter for closed fracture with routine healing ICD-9: V54.12 ICD-10: S52.611D Active 03/02/2017 Unknown Idiopathic sleep related nonobstructive alveolar hypoventilation ICD-9: 327.24 ICD-10: G47.34 Active 03/02/2017 Unknown Chronic kidney disease, stage 4 (severe) ICD-9: 585.4 ICD-10: N18.4 Active 12/16/2016 Unknown Sciatica Unknown Active 11/18/2016 Unknown Intervertebral disc disorders with radiculopathy, lumbar region ICD-9: 724.3 ICD-10: M51.16 Active 11/18/2016 Unknown Localized edema ICD-9 : 782.3 ICD-10: R60.0 Active 06/03/2016 Unknown Chronic kidney disease, stage 3 (moderate) ICD-9: 585.3 ICD-10: N18.3 Active 06/03/2016 Unknown Essential (primary) hypertension ICD-9: 401.9 ICD-10: I10 Active 11/15/2013 Unknown Encounter for immunization ICD-9: V04.81 ICD-10: Z23 Active 02/19/2012 Unknown Low back pain ICD-9: 724.2 ICD-10: M54.5 Active 05/30/2014 Unknown Hypothyroidism, unspecified ICD-9: 244.9 ICD-10: E03.9 Active 11/15/2013 Unknown Other abnormal glucose ICD-9: 249.00 ICD-10: R73.09 Active 07/10/2015 Unknown Acute recurrent maxillary sinusitis ICD-9: 461.0 ICD-10: J01.01 Active 06/28/2015 Unknown Pain in left knee ICD- 9: 719.46 ICD-10: M25.562 Active 04/01/2015 Unknown Pain in left leg ICD-9 : 729.5 ICD-10: M79.605 Active 04/01/2015 Unknown Cervicalgia ICD-9: 723.1 ICD-10: M54.2 Active 05/30/2014 Unknown Encounter for immunization ICD-9: V06.6 ICD-10: Z23 Active 03/22/2015 Unknown Spinal stenosis, lumbar region ICD-9: 724.02 ICD-10: M48.06 Active 03/21/2015 Unknown Mood disorder due to known physiological condition with depressive features ICD-9: 311 ICD-10: F06.31 Active 02/21/2015 Unknown Pain in left shoulder ICD-9: 719.41 ICD-10: M25.512 Active 02/21/2015 Unknown Zoster without complications ICD-9: 053.9 ICD-10: B02.9 Active 02/21/2015 Unknown Cervicalgia ICD-9: 723.1 Active 05/30/2014 Unknown DEPRESSIVE DISORDER NEC ICD-9: 311 Active 05/30/2014 Unknown ESSENTIAL HYPERTENSION ICD-9: 401.9 Active 11/15/2013 Unknown LUMBAGO ICD-9: 724.2 Active 05/30/2014 Unknown Trigger point of left shoulder region ICD-9: 719.41 Active Unknown Depression Unknown Active 05/30/2014 Unknown Arthralgia ICD-9: 719.40 Active 03/02/2014 Unknown HYPOTHYROIDISM ICD-9: 244.9 Active 11/15/2013 Unknown Gross hematuria ICD-9 : 599.71 Active 08/31/2013 Unknown Incisional pain ICD-9 : 782.0 Active 06/29/2013 Unknown Parotid discomfort ICD -9: 527.9 Active 02/16/2013 Unknown Parotid gland fullness ICD-9: 527.8 Active 02/16/2013 Unknown Syncope, near ICD-9: 780.2 Active 02/16/2013 Unknown History of UTI ICD-9: V13.02 Active 10/07/2012 Unknown Myalgia ICD-9: 729.1 Active 10/07/2012 Unknown Dysuria ICD-9: 788.1 Active 09/21/2012 Unknown Stage III chronic kidney disease ICD-9: 585.3 Active 2012 Unknown Hyperlipidemia Unknown Active 02/23/2012 Unknown Hypothryroidism Unknown Active 02/23/2012 Unknown Encounter for long-term (current) use of medications ICD-9: V58.69 Active 02/23/2012 Unknown VACCIN FOR INFLUENZA ICD-9: V04.81 Active 02/19/2012 Unknown 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 ICD-9: 733.82 Active 07/07/2011 Unknown Back pain ICD-9: 724.5 Active 06/16/2011 Unknown Knee pain, right ICD-9 : 719.46 Active 06/16/2011 Unknown Thrush, oral ICD-9: 112.0 Active 06/16/2011 Unknown VAC STREP PNEUMONIAE-FLU ICD-9: V06.6 Active 02/17/2011 Unknown Atrial fibrillation Unknown Active 01/08/2011 Unknown Heart disease Unknown Active 01/08/2011 Unknown Hypertension Unknown Active 01/08/2011 Unknown renal insufficiency Unknown Active 01/08/2011 Unknown Acute back pain with sciatica ICD-9: 724.3 Active 01/08/2011 Unknown Anticoagulant long-term use ICD-9: V58.61 Active 01/08/2011 Unknown Benign paroxysmal vertigo ICD-9: 386.11 Active 01/08/2011 Unknown Conjunctivitis ICD-9: 372.30 Active 01/08/2011 Unknown Dyslipidemia ICD-9: 272.4 Active 01/08/2011 Unknown 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 Active 01/08/2011 Unknown Insomnia ICD-9: 780.52 Active 01/08/2011 Unknown Restless leg ICD-9: 333.94 Active 01/08/2011 Unknown Problems Condition Codes Effective Dates Condition Status Gout, unspecified ICD- 9: 274.9 ICD-10: M10.9 06/11/2017 Active Acute laryngopharyngitis ICD-9: 465.0 ICD-10: J06.0 05/05/2017 Active Cough ICD-9: 786.2 ICD-10: R05 06/28/2015 Active Atrophy of thyroid (acquired) ICD-9: 244.8 ICD-10: E03.4 07/29/2016 Active Essential (primary) hypertension ICD-9: 401.1 ICD-10: I10 07/29/2016 Active Displaced fracture of right ulna styloid process, subsequent encounter for closed fracture with routine healing ICD-9: V54.12 ICD-10: S52.611D 03/02/2017 Active Idiopathic sleep related nonobstructive alveolar hypoventilation ICD-9: 327.24 ICD-10: G47.34 03/02/2017 Active Chronic kidney disease, stage 4 (severe) ICD-9: 585.4 ICD-10: N18.4 12/16/2016 Active Sciatica Unknown 11/18/2016 Active Intervertebral disc disorders with radiculopathy, lumbar region ICD-9: 724.3 ICD-10: M51.16 11/18/2016 Active Localized edema ICD-9 : 782.3 ICD-10: R60.0 06/03/2016 Active Chronic kidney disease, stage 3 (moderate) ICD-9: 585.3 ICD-10: N18.3 06/03/2016 Active Essential (primary) hypertension ICD-9: 401.9 ICD-10: I10 11/15/2013 Active Encounter for immunization ICD-9: V04.81 ICD-10: Z23 02/19/2012 Active Low back pain ICD-9: 724.2 ICD-10: M54.5 05/30/2014 Active Hypothyroidism, unspecified ICD-9: 244.9 ICD-10: E03.9 11/15/2013 Active Other abnormal glucose ICD-9: 249.00 ICD-10: R73.09 07/10/2015 Active Acute recurrent maxillary sinusitis ICD-9: 461.0 ICD-10: J01.01 06/28/2015 Active Pain in left knee ICD- 9: 719.46 ICD-10: M25.562 04/01/2015 Active Pain in left leg ICD-9 : 729.5 ICD-10: M79.605 04/01/2015 Active Cervicalgia ICD-9: 723.1 ICD-10: M54.2 05/30/2014 Active Encounter for immunization ICD-9: V06.6 ICD-10: Z23 03/22/2015 Active Spinal stenosis, lumbar region ICD-9: 724.02 ICD-10: M48.06 03/21/2015 Active Mood disorder due to known physiological condition with depressive features ICD-9: 311 ICD-10: F06.31 02/21/2015 Active Pain in left shoulder ICD-9: 719.41 ICD-10: M25.512 02/21/2015 Active Zoster without complications ICD-9: 053.9 ICD-10: B02.9 02/21/2015 Active Cervicalgia ICD-9: 723.1 05/30/2014 Active DEPRESSIVE DISORDER NEC ICD-9: 311 05/30/2014 Active ESSENTIAL HYPERTENSION ICD-9: 401.9 11/15/2013 Active LUMBAGO ICD-9: 724.2 05/30/2014 Active Trigger point of left shoulder region ICD-9: 719.41 08/22/2014 Active Depression Unknown 05/30/2014 Active Arthralgia ICD-9: 719.40 03/02/2014 Active HYPOTHYROIDISM ICD-9: 244.9 11/15/2013 Active Gross hematuria ICD-9 : 599.71 08/31/2013 Active Incisional pain ICD-9 : 782.0 06/29/2013 Active Parotid discomfort ICD -9: 527.9 02/16/2013 Active Parotid gland fullness ICD-9: 527.8 02/16/2013 Active Syncope, near ICD-9: 780.2 02/16/2013 Active History of UTI ICD-9: V13.02 10/07/2012 Active Myalgia ICD-9: 729.1 10/07/2012 Active Dysuria ICD-9: 788.1 09/21/2012 Active Stage III chronic kidney disease ICD-9: 585.3 06/23/2012 Active Hyperlipidemia Unknown 02/23/2012 Active Hypothryroidism Unknown 02/23/2012 Active Encounter for long-term (current) use of medications ICD-9: V58.69 02/23/2012 Active VACCIN FOR INFLUENZA ICD-9: V04.81 02/19/2012 Active 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30 01/08/2011 Active Dyslipidemia ICD-9: 272.4 01/08/2011 Active 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 01/08/2011 Active Insomnia ICD-9: 780.52 01/08/2011 Active Restless leg ICD-9: 333.94 01/08/2011 Active Medications Medication Codes Instructions Start Date Stop Date Status Fill Instructions allopurinol 100 mg tablet RxNorm: 259820 1 Tablet(s) PO daily 06/12/2017 12/08/2017 Active allopurinol 100 mg tablet RxNorm: 775674 1 Tablet(s) PO daily 06/12/2017 06/11/2017 Inactive prednisone 20 mg tablet RxNorm: 644596 2 Tablet(s) PO daily 12/201706/15/2017 Active Vitamin D2 50,000 unit capsule RxNorm: 880305 1 Capsule(s) PO QW x12 weeks 05/07/2017 11/02/2017 Active Take vitamin d3 5000 units QD with it Vitamin D2 50,000 unit capsule RxNorm: 275060 1 Capsule(s) PO QW x12 weeks 05/07/2017 11/02/2017 Active Take vitamin d3 5000 units QD with it Keflex 500 mg capsule RxNorm: 746266 1 Capsule(s) PO TID 201605/04/2017 Inactive citalopram 40 mg tablet RxNorm: 041451 TAKE 1 TABLET BY MOUTH DAILY 04/06/2017 10/02/2017 Active Generic For:CELEXA 40MG 04/06/2017 9:17:54 AM carvedilol 12.5 mg tablet RxNorm: 896893 1 Tablet(s) PO BID 07/28/2017 Active Synthroid 25 mcg tablet RxNorm: 508632 TAKE 1/2 TABLET BY MOUTH DAILY 03/06/2017 09/01/2017 Active Generic For:SYNTHROID 25MCG TAB 03/06/2017 9:04:09 AM diltiazem ER 360 mg capsule,extended release RxNorm: 566653 TAKE ONE CAPSULE BY MOUTH ONCE DAILY. 01/02/2017 06/30/2017 Active Generic For:TIAZAC 360 MG CAPSULE SA 01/02/2017 2:53:42 PM Vitamin D3 1,000 unit capsule RxNorm: 196539 5 Capsule(s) PO No Stop Date Active Vitamin D2 50,000 unit capsule RxNorm: 370495 1 Capsule(s) PO QW x12 weeks 12/25/2016 12/24/2016 Inactive Take vitamin d3 5000 units QD with it Vitamin D2 50,000 unit capsule RxNorm: 793605 1 Capsule(s) PO QW x12 weeks 12/25/2016 03/24/2017 Inactive Take vitamin d3 5000 units QD with it hydralazine 100 mg tablet RxNorm: 1 Tablet(s) PO BID 201603/17/2017 Inactive hydrocodone 10 mg-acetaminophen 325 mg tablet RxNorm: 532511 Tablet(s) PO 1 TABLET EVERY 6 HOURS NEEDED FOR CHRONIC OSTEOARTHRITIS PAIN 11/18/2016 No Stop Date Active Generic For:NORCO 10-325MG Generic For:NORCO 10-325MG 05/11/2013 9: 15:54 AM (Appended: Controlled substance eRx refill - RxReferenceNumber: [id number] ) carvedilol 12.5 mg tablet RxNorm: 931430 1/2 Tablet(s) PO BID 11/18/2016 03/17/2017 Inactive Bystolic 10 mg tablet RxNorm: 084991 Tablet(s) Tablet(s) 1 Tablet(s) PO BID 10/27/2016 11/17/2016 Inactive citalopram 40 mg tablet RxNorm: 299097 TAKE 1 TABLET BY MOUTH DAILY 10/07/2016 04/04/2017 Inactive Generic For:CELEXA 40MG 10/07/2016 9:04:47 AM Synthroid 25 mcg tablet RxNorm: 549258 1/2 Tablet(s) PO daily 09/09/2016 03/05/2017 Inactive Levaquin 250 mg tablet RxNorm: 738764 1 Tablet(s) PO daily Prescribed by Dr. Jacobs 09/02/2016 09/06/2016 Inactive hydrocodone 10 mg-acetaminophen 325 mg tablet RxNorm: 182116 Tablet(s) PO 1 TABLET EVERY 6 HOURS NEEDED FOR CHRONIC OSTEOARTHRITIS PAIN 07/29/2016 11/17/2016 Inactive Generic For:NORCO 10-325MG Generic For:NORCO 10-325MG 05/11/2013 9: 15:54 AM (Appended: Controlled substance eRx refill - RxReferenceNumber: [id number] ) alprazolam 0.5 mg tablet RxNorm: 138480 1 Tablet(s) PO Q8 as needed 06/26/2016 08/24/2016 Inactive diltiazem ER 360 mg capsule,extended release RxNorm: 965418 TAKE ONE CAPSULE BY MOUTH ONCE DAILY. 06/09/2016 12/05/2016 Inactive Generic For:TIAZAC 360 MG CAPSULE SA 06/09/2016 9:08:38 AM Bystolic 10 mg tablet RxNorm: 451982 Tablet(s) 1 Tablet(s) PO BID 06/09/2016 10/26/2016 Inactive hydrocodone 10 mg-acetaminophen 325 mg tablet RxNorm: 465052 Tablet(s) PO as needed 1 TABLET EVERY 6 HOURS NEEDED FOR CHRONIC OSTEOARTHRITIS PAIN 05/27/2016 06/10/2016 Inactive (Appended: Controlled substance eRx refill - RxReferenceNumber: [id number]) Synthroid 25 mcg tablet RxNorm: 084412 1/2 Tablet(s) PO daily 03/11/2016 09/06/2016 Inactive Voltaren 1 % topical gel RxNorm: 374391 2 Gram(s) TOP TID as needed FOR BACK OR JOINT PAIN 03/03/2016 06/30/2016 Inactive Voltaren 1 % topical gel RxNorm: 735602 2 Gram(s) TOP TID as needed FOR BACK OR JOINT PAIN 03/03/2016 03/02/2016 Inactive hydrocodone 10 mg-acetaminophen 325 mg tablet RxNorm: 867287 Tablet(s) PO 1 TABLET EVERY 6 HOURS NEEDED FOR CHRONIC OSTEOARTHRITIS PAIN 03/03/2016 05/26/2016 Inactive (Appended: Controlled substance eRx refill - RxReferenceNumber: [id number]) furosemide 40 mg tablet RxNorm: 795781 1 Tablet(s) PO PRN EDEMA 02/13/2016 No Stop Date Active Voltaren 1 % topical gel RxNorm: 577019 2 Gram(s) TOP TID as needed FOR BACK OR JOINT PAIN 02/13/2016 03/02/2016 Inactive citalopram 40 mg tablet RxNorm: 825302 TAKE 1 TABLET BY MOUTH DAILY 02/11/2016 08/08/2016 Inactive Generic For:CELEXA 40MG 02/11/2016 8:50:11 AM hydrocodone 10 mg-acetaminophen 325 mg tablet RxNorm: 321603 Tablet(s) PO 1 TABLET EVERY 6 HOURS NEEDED FOR CHRONIC OSTEOARTHRITIS PAIN 01/10/2016 03/02/2016 Inactive (Appended: Controlled substance eRx refill - RxReferenceNumber: [id number]) alprazolam 0.5 mg tablet RxNorm: 251661 1 Tablet(s) PO Q8 hours prn 01/10/2016 03/09/2016 Inactive Bystolic 10 mg tablet RxNorm: 335838 Tablet(s) 1 Tablet(s) PO BID 12/14/2015 06/08/2016 Inactive diltiazem ER 360 mg capsule,extended release RxNorm: 930241 TAKE ONE CAPSULE BY MOUTH ONCE DAILY. 12/13/2015 06/08/2016 Inactive Generic For:TIAZAC 360 MG CAPSULE SA 12/12/2015 9:04:46 AM Livalo 4 mg tablet RxNorm: 453499 1 Tablet(s) PO daily 201504/22/2016 Inactive alprazolam 0.5 mg tablet RxNorm: 162874 1 Tablet(s) PO Q8 hours prn 10/25/2015 12/23/2015 Inactive Synthroid 25 mcg tablet RxNorm: 521329 1/2 Tablet(s) PO daily 09/13/2015 03/10/2016 Inactive citalopram 40 mg tablet RxNorm: 783656 TAKE 1 TABLET BY MOUTH DAILY 08/14/2015 02/09/2016 Inactive Generic For:CELEXA 40MG 08/14/2015 9:21:25 AM hydrocodone 10 mg-acetaminophen 325 mg tablet RxNorm: 674891 Tablet(s) PO 1 TABLET EVERY 6 HOURS NEEDED FOR CHRONIC OSTEOARTHRITIS PAIN 08/13/2015 01/09/2016 Inactive (Appended: Controlled substance eRx refill - RxReferenceNumber: [id number]) Kenalog 40 mg/mL suspension for injection RxNorm: 2439433 2 Milliliter(s) Inj 06/29/2015 06/29/2015 Inactive Levaquin 250 mg tablet RxNorm: 005964 1 Tablet(s) PO UD 201507/05/2015 Inactive 2 TABS TODAY THEN 1 TAB DAILY X 6 DAYS Zithromax Z-Spencer 250 mg tablet RxNorm: 467477 1 Tablet(s) PO UD 06/27/2015 09/12/2015 Inactive z pack x 1 diltiazem ER 360 mg capsule,extended release RxNorm: 395756 TAKE ONE CAPSULE BY MOUTH ONCE DAILY. 06/15/2015 12/11/2015 Inactive Generic For:TIAZAC 360 MG CAPSULE SA 06/15/2015 10:03:16 AM Bystolic 10 mg tablet RxNorm: 132624 1 Tablet(s) PO BID 201512/11/2015 Inactive alprazolam 0.5 mg tablet RxNorm: 694085 1 Tablet(s) PO Q8 hours prn 03/13/2015 06/09/2015 Inactive citalopram 40 mg tablet RxNorm: 706271 TAKE 1 TABLET BY MOUTH DAILY 02/15/2015 08/13/2015 Inactive Generic For:CELEXA 40MG 02/15/2015 9:00:40 AM hydrocodone 10 mg-acetaminophen 325 mg tablet RxNorm: 107251 Tablet(s) PO 1 TABLET EVERY 6 HOURS NEEDED FOR CHRONIC OSTEOARTHRITIS PAIN 01/30/2015 08/12/2015 Inactive (Appended: Controlled substance eRx refill - RxReferenceNumber: [id number]) alprazolam 0.5 mg tablet RxNorm: 213589 1 Tablet(s) PO Q8 hours prn 01/03/2015 03/12/2015 Inactive Synthroid 25 mcg tablet RxNorm: 092476 1/2 Tablet(s) PO daily 12/20/2014 07/17/2015 Inactive hydrocodone 10 mg-acetaminophen 325 mg tablet RxNorm: 287742 Tablet(s) PO 1 TABLET EVERY 6 HOURS NEEDED FOR CHRONIC OSTEOARTHRITIS PAIN 12/01/2014 01/29/2015 Inactive (Appended: Controlled substance eRx refill - RxReferenceNumber: [id number]) hydrocodone 10 mg-acetaminophen 325 mg tablet RxNorm: 248232 Tablet(s) PO 1 TABLET EVERY 6 HOURS NEEDED FOR CHRONIC OSTEOARTHRITIS PAIN 09/22/2014 11/30/2014 Inactive (Appended: Controlled substance eRx refill - RxReferenceNumber: [id number]) citalopram 40 mg tablet RxNorm: 319690 1 Tablet(s) PO daily TAKE 1 TABLET BY MOUTH EVERY MORNING 08/22/2014 02/14/2015 Inactive citalopram 40 mg tablet RxNorm: 039039 1 Tablet(s) PO daily TAKE 1 TABLET BY MOUTH EVERY MORNING 08/21/2014 02/16/2015 Inactive Synthroid 25 mcg tablet RxNorm: 481468 1 Tablet(s) PO daily 12/201412/19/2014 Inactive alprazolam 0.5 mg tablet RxNorm: 227552 1 Tablet(s) PO Q8 hours prn 06/22/2014 08/20/2014 Inactive diltiazem ER 360 mg capsule,extended release RxNorm: 557525 TAKE ONE CAPSULE BY MOUTH ONCE DAILY. 06/21/2014 06/14/2015 Inactive 06/21/2014 11:05:48 AM Bystolic 10 mg tablet RxNorm: 266437 1 Tablet(s) PO BID 201405/24/2015 Inactive hydrocodone 10 mg-acetaminophen 325 mg tablet RxNorm: 716549 Tablet(s) PO 1 TABLET EVERY 6 HOURS NEEDED FOR CHRONIC OSTEOARTHRITIS PAIN 04/05/2014 09/21/2014 Inactive (Appended: Controlled substance eRx refill - RxReferenceNumber: [id number]) diltiazem ER 360 mg capsule,extended release RxNorm: 955951 TAKE ONE CAPSULE BY MOUTH ONCE DAILY. 03/27/2014 06/20/2014 Inactive 03/27/2014 10:16:28 AM diltiazem ER 360 mg capsule,extended release RxNorm: 105173 TAKE ONE CAPSULE BY MOUTH ONCE DAILY. 02/23/2014 03/24/2014 Inactive 02/23/2014 11:40:55 AM Bystolic 20 mg tablet RxNorm: 998910 1 Tablet(s) PO daily TAKE 1 TABLET BY MOUTH ONCE DAILY. 01/23/2014 05/29/2014 Inactive alprazolam 0.5 mg tablet RxNorm: 360720 1 Tablet(s) PO UD 12/1206/21/2014 Inactive at HS and PRN hydrocodone 10 mg-acetaminophen 325 mg tablet RxNorm: 395088 Tablet(s) PO 1 TABLET EVERY 6 HOURS NEEDED FOR CHRONIC OSTEOARTHRITIS PAIN 12/12/2013 04/04/2014 Inactive (Appended: Controlled substance eRx refill - RxReferenceNumber: [id number]) diltiazem ER 360 mg capsule,extended release RxNorm: 705253 Capsule(s) PO TAKE ONE CAPSULE BY MOUTH ONCE DAILY. 10/11/2013 02/22/2014 Inactive 10/11/2013 11:32: 04 AM Keflex 500 mg capsule RxNorm: 083811 1 Capsule(s) PO TID 201309/11/2013 Inactive Keflex 500 mg capsule RxNorm: 890013 1 Capsule(s) PO TID 201309/04/2013 Inactive Rocephin 500 mg solution for injection RxNorm: 752371 Inj 09/0209/02/2013 Inactive Diflucan 150 mg tablet RxNorm: 400198 1 Tablet(s) PO daily 05/201308/31/2013 Inactive Diflucan 150 mg tablet RxNorm: 556958 1 Tablet(s) PO daily 05/201309/05/2013 Inactive Rocephin 500 mg solution for injection RxNorm: 432298 Inj 09/0109/01/2013 Inactive Rocephin 500 mg solution for injection RxNorm: 104155 Inj 08/3108/31/2013 Inactive Cipro 500 mg tablet RxNorm: 211572 1 Tablet(s) PO BID 201308/22/2013 Inactive Cipro 500 mg tablet RxNorm: 895503 1 Tablet(s) PO BID 201308/29/2013 Inactive citalopram 40 mg tablet RxNorm: 626088 1 Tablet(s) PO daily TAKE 1 TABLET BY MOUTH EVERY MORNING 08/22/2013 08/20/2014 Inactive Bystolic 20 mg tablet RxNorm: 049266 1 Tablet(s) PO daily TAKE 1 TABLET BY MOUTH ONCE DAILY. 07/21/2013 01/16/2014 Inactive Synthroid 25 mcg tablet RxNorm: 969750 1 Tablet(s) PO daily 07/10/2014 Inactive diltiazem ER 360 mg capsule,extended release RxNorm: 465695 1 Capsule(s) PO daily TAKE 1 CAPSULE BY MOUTH ONCE DAILY 06/10/2013 10/07/2013 Inactive hydrocodone 10 mg-acetaminophen 325 mg tablet RxNorm: 891816 Tablet(s) PO 1 TABLET EVERY 6 HOURS NEEDED FOR CHRONIC OSTEOARTHRITIS PAIN 05/12/2013 No Stop Date Active Generic For:NORCO 10-325MG Generic For:NORCO 10-325MG 05/11/2013 9: 15:54 AM (Appended: Controlled substance eRx refill - RxReferenceNumber: [id number] ) hydrocodone 10 mg-acetaminophen 325 mg tablet RxNorm: 622155 Tablet(s) PO 1 TABLET EVERY 6 HOURS NEEDED FOR CHRONIC OSTEOARTHRITIS PAIN 05/12/2013 07/28/2016 Inactive Generic For:NORCO 10-325MG Generic For:NORCO 10-325MG 05/11/2013 9: 15:54 AM (Appended: Controlled substance eRx refill - RxReferenceNumber: [id number] ) hydrocodone 10 mg-acetaminophen 325 mg tablet RxNorm: 500969 Tablet(s) PO 1 TABLET EVERY 6 HOURS NEEDED FOR CHRONIC OSTEOARTHRITIS PAIN 05/12/2013 12/11/2013 Inactive (Appended: Controlled substance eRx refill - RxReferenceNumber: [id number]) hydrocodone 10 mg-acetaminophen 325 mg tablet RxNorm: 278562 Tablet(s) PO 1 TABLET EVERY 6 HOURS NEEDED FOR CHRONIC OSTEOARTHRITIS PAIN 05/11/2013 05/12/2013 Inactive (Appended: Controlled substance eRx refill - RxReferenceNumber: [id number]) alprazolam 0.5 mg tablet RxNorm: 110067 1 Tablet(s) PO UD 05/11 No Stop Date Active at HS and PRN citalopram 40 mg tablet RxNorm: 890723 Tablet(s) PO TAKE 1 TABLET BY MOUTH EVERY MORNING 04/04/2013 08/21/2013 Inactive nitrofurantoin 50 mg capsule RxNorm: 048842 1 Capsule(s) PO BID 03/17/2013 03/16/2013 Inactive nitrofurantoin 50 mg capsule RxNorm: 887669 1 Capsule(s) PO BID 03/17/2013 03/23/2013 Inactive Bystolic 20 mg tablet RxNorm: 669507 1 Tablet(s) PO daily TAKE 1 TABLET BY MOUTH ONCE DAILY. 03/14/2013 07/20/2013 Inactive Cipro 250 mg tablet RxNorm: 379613 1 Tablet(s) PO BID 201203/10/2013 Inactive Cipro 250 mg tablet RxNorm: 621127 1 Tablet(s) PO BID 201203/03/2013 Inactive Influenza Virus Vaccine 0.5 mL RxNorm: IM 02/02/2013 02/02/2013 Inactive diltiazem ER 360 mg capsule,extended release RxNorm: 307339 Capsule(s) PO TAKE 1 CAPSULE BY MOUTH ONCE DAILY 01/24/201310/2013 Inactive Bystolic 20 mg tablet RxNorm: 489562 1 Tablet(s) PO daily TAKE 1 TABLET BY MOUTH ONCE DAILY. 11/29/2012 11/29/2012 Inactive Bystolic 20 mg tablet RxNorm: 433285 1 Tablet(s) PO daily TAKE 1 TABLET BY MOUTH ONCE DAILY. 11/29/2012 03/13/2013 Inactive Coumadin 1 mg tablet RxNorm: 633011 1 Tablet(s) PO daily 201210/24/2012 Inactive Coumadin 1 mg tablet RxNorm: 124898 Tablet(s) PO TAKE 1 TABLET BY MOUTH ONCE DAILY. 10/25/2012 11/14/2013 Inactive hydrocodone 10 mg-acetaminophen 325 mg tablet RxNorm: 943611 Tablet(s) PO 1 TABLET EVERY 6 HOURS NEEDED FOR CHRONIC OSTEOARTHRITIS PAIN 10/22/2012 05/10/2013 Inactive (Appended: Controlled substance eRx refill - RxReferenceNumber: [id number]) Synthroid 25 mcg tablet RxNorm: 503121 1 Tablet(s) PO daily 04/12/2013 Inactive prednisone 20 mg tablet RxNorm: 887386 3 Tablet(s) PO daily 10/201210/11/2013 Inactive Kenalog 40 mg/mL Susp for Injection RxNorm: 5151941 Milliliter(s) Inj 10/07/2012 10/07/2012 Inactive levofloxacin 500 mg tablet RxNorm: 332367 Tablet(s) PO 201206/15/2013 Inactive 1 q 48 hr x 4 doses hydrocodone 10 mg-acetaminophen 325 mg tablet RxNorm: 752812 Tablet(s) PO 1 TABLET EVERY 6 HOURS NEEDED FOR CHRONIC OSTEOARTHRITIS PAIN 09/13/2012 05/11/2013 Inactive (Appended: Controlled substance eRx refill - RxReferenceNumber: [id number]) hydrocodone 10 mg-acetaminophen 325 mg tablet RxNorm: 4689164 Tablet(s) PO 1 TABLET EVERY 6 HOURS NEEDED FOR CHRONIC OSTEOARTHRITIS PAIN 09/13/2012 10/22/2012 Inactive (Appended: Controlled substance eRx refill - RxReferenceNumber: [id number]) hydrocodone 10 mg-acetaminophen 325 mg tablet RxNorm: 8580574 Tablet(s) PO 1 TABLET EVERY 6 HOURS NEEDED FOR CHRONIC OSTEOARTHRITIS PAIN 07/30/2012 09/13/2012 Inactive (Appended: Controlled [id number] diltiazem ER 360 mg capsule,extended release RxNorm: 330753 1 Capsule(s) PO daily 06/23/2012 01/18/2013 Inactive citalopram 40 mg tablet RxNorm: 328822 1 Tablet(s) PO daily 04/03/2013 Inactive TAKE 1 TABLET BY MOUTH EVERY MORNING Synthroid 25 mcg tablet RxNorm: 261103 1 Tablet(s) PO daily 08/27/2012 Inactive Synthroid 25 mcg tablet RxNorm: 561144 1 Tablet(s) PO BID 03/0102/29/2012 Inactive Synthroid 25 mcg tablet RxNorm: 733624 1 Tablet(s) PO BID 03/0102/29/2012 Inactive citalopram 40 mg tablet RxNorm: 304912 Tablet(s) PO 02/03/2012 03/16/2012 Inactive TAKE 1 TABLET BY MOUTH EVERY MORNING Bystolic 20 mg tablet RxNorm: 821375 Tablet(s) PO 10/06/2011 11/29/2012 Inactive TAKE 1 TABLET BY MOUTH ONCE DAILY. hydrocodone 10 mg-acetaminophen 325 mg tablet RxNorm: 1796306 1 Tablet(s) PO Q6 09/05/2011 07/30/2012 Inactive OxyContin 10 mg 12 hr Tab RxNorm: 2241942 1 Tablet(s) PO Q12 PRN per Dr. Walsh 08/04/2011 02/19/2012 Inactive citalopram 40 mg tablet RxNorm: 072195 1 Tablet(s) PO daily 01/201201/06/2012 Inactive hydrocodone-acetaminophen 10 mg-325 mg Tab RxNorm: 5101387 1 Tablet(s) PO Q6 06/24/2011 09/03/2011 Inactive hydrocodone-acetaminophen 10 mg-325 mg Tab RxNorm: 7660182 1 Tablet(s) PO Q6 06/23/2011 06/23/2011 Inactive nystatin 100,000 unit/mL Oral Susp RxNorm: 038836 6 Milliliter(s) PO QID 06/16/2011 06/22/2011 Inactive diltiazem CD 240 mg capsule,extended release 24 hr RxNorm: 835472 1 Capsule(s) PO daily 06/09/2011 12/05/2011 Inactive alprazolam 0.5 mg tablet RxNorm: 540915 1 Tablet(s) PO UD 06/0210/21/2012 Inactive at HS and PRN Bystolic 20 mg Tab RxNorm: 041767 1 Tablet(s) PO daily 201009/29/2011 Inactive erythromycin 5 mg/gram (0.5 %) Eye Ointment RxNorm: 846671 1 Application OPH TID 01/08/2011 01/14/2011 Inactive citalopram 40 mg Tab RxNorm: 666461 1 Tablet(s) PO daily 201001/28/2011 Inactive lisinopril 40 mg tablet RxNorm: 002152 1 Tablet(s) PO daily No Start Date Active Eliquis 2.5 mg tablet RxNorm: 1949889 1 Tablet(s) PO BID Dr German manages No Start Date Active aspirin 81 mg tablet RxNorm: 977857 1 Tablet(s) PO daily No Start Date Active Multaq 400 mg tablet RxNorm: 077922 1 Tablet(s) PO BID -Dr. German manages No Start Date Active Calcium 500 + D (D3) 500 mg-125 unit Tab RxNorm: 714488 1 Tablet(s) PO daily No Start Date Active flaxseed oil Oral RxNorm: Oral No Start Date Active doxazosin 4 mg tablet RxNorm: 218325 1 Tablet(s) PO daily dr edmondson No Start Date 05/29/2014 Inactive Tekturna 150 mg Tab RxNorm: 5526790 1 Tablet(s) PO daily No Start Date 07/28/2016 Inactive alprazolam 0.5 mg Tab RxNorm: 232751 1 Tablet(s) PO UD No Start Date 06/01/2011 Inactive at HS and PRN Edarbi 40 mg tablet RxNorm: 5463012 1 Tablet(s) PO daily No Start Date 05/29/2014 Inactive Zithromax Z-Spencer 250 mg tablet RxNorm: 137263 1 Tablet(s) PO UD No Start Date 06/26/2015 Inactive z pack x 1 lisinopril 20 mg Tab RxNorm: 953327 1 Tablet(s) PO daily No Start Date 07/14/2012 Inactive amiodarone 200 mg tablet RxNorm: 103223 1 Tablet(s) PO daily No Start Date 07/28/2016 Inactive amlodipine 5 mg tablet RxNorm: 283924 1 Tablet(s) PO daily No Start Date 11/17/2016 Inactive OxyContin 10 mg 12 hr Tab RxNorm: 0441085 1 Tablet(s) PO Q12 PRN per Dr. Walsh No Start Date 08/03/2011 Inactive diltiazem CD 240 mg 24 hr Cap RxNorm: 205963 1 Capsule(s) PO daily No Start Date 06/08/2011 Inactive Livalo 4 mg Tab RxNorm : 060574 1 Tablet(s) PO QHS Dr. Faye - conference planner No Start Date 10/25/2015 Inactive Vytorin 10-20 10 mg-20 mg Tab RxNorm: 4413426 1 Tablet(s) PO daily No Start Date 06/23/2012 Inactive levofloxacin 500 mg tablet RxNorm: 165409 Tablet(s) PO No Start Date 09/20/2012 Inactive 1 q 48 hr x 4 doses Vitamin D 1,000 unit Cap RxNorm: 727783 Oral No Start Date 12/24/2016 Inactive Bystolic 20 mg Tab RxNorm: 192881 1 Tablet(s) PO daily No Start Date 04/02/2011 Inactive hydrocodone-acetaminophen 10 mg-325 mg Tab RxNorm: 7922985 1 Tablet(s) PO Q6 No Start Date 06/22/2011 Inactive Coumadin 2 mg Tab RxNorm: 349209 Tablet(s) PO No Start Date 11/14/[address] Faye monitors Diflucan 150 mg tablet RxNorm: 010100 1 Tablet(s) PO daily No Start Date 11/14/2013 Inactive Medication Administered Medication Codes Instructions Start Date Status Kenalog 40 mg/mL suspension for injection RxNorm: 1576320 2Milliliter 06/29/2015 No longer Active Rocephin 500 mg solution for injection RxNorm: 376714 09/02/2013 No longer Active Rocephin 500 mg solution for injection RxNorm: 048075 09/01/2013 No longer Active Rocephin 500 mg solution for injection RxNorm: 171407 08/31/2013 No longer Active Influenza Virus Vaccine 0.5 mL RxNorm: 02/02/2013 No longer Active Kenalog 40 mg/mL Susp for Injection RxNorm: 9775612 Milliliter 10/07/2012 No longer Active Immunizations Vaccine Codes Date Status Influenza CVX: 141 02/13/2016 completed Influenza CVX: 141 03/22/2015 completed Influenza CVX: 141 03/22/2015 completed Pneumococcal (Adult) CVX: 133 03/22/2015 completed Influenza CVX: 141 02/02/2013 completed Influenza CVX: 141 02/19/2012 completed Influenza CVX: 141 02/17/2011 completed Pneumococcal (Adult) CVX: 33 02/17/2011 completed zostavax Unknown 12/02/2010 completed Assessments Condition Codes Effective Dates Cough ICD-10: R05 ICD-9: 786.2 05/05/2017 Acute laryngopharyngitis ICD-10: J06.0 ICD-9: 465.0 05/05/2017 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 ICD-9: 244.8 04/21/2017 Essential (primary) hypertension ICD-10: I10 ICD-9: 401.1 04/21/2017 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 ICD-9: 327.24 03/02/2017 Displaced fracture of right ulna styloid process, subsequent encounter for closed fracture with routine healing ICD-10: S52.611D ICD-9: V54.12 03/02/2017 Chronic kidney disease, stage 4 (severe) ICD-10: N18.4 ICD-9: 585.4 12/16/2016 Intervertebral disc disorders with radiculopathy, 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 ICD-9: 724.3 11/18/2016 Localized edema ICD-10: R60.0 ICD-9: 782.3 09/22/2016 Essential (primary) hypertension ICD-10: I10 ICD-9: 401.9 06/03/2016 Chronic kidney disease, stage 3 (moderate) ICD-10: N18.3 ICD-9: 585.3 06/03/2016 Low back pain ICD-10: M54.5 ICD-9: 724.2 02/13/2016 Encounter for immunization ICD-10: Z23 ICD-9: V04.81 02/13/2016 Hypothyroidism, unspecified ICD-10: E03.9 ICD-9: 244.9 10/17/2015 Other abnormal glucose ICD-10: R73.09 ICD-9: 249.00 07/11/2015 Acute recurrent maxillary sinusitis ICD-10: J01.01 ICD-9: 461.0 06/29/2015 Pain in left knee ICD-10: M25.562 ICD-9: 719.46 04/02/2015 Pain in left leg ICD-10: M79.605 ICD-9: 729.5 04/02/2015 Cervicalgia ICD-10: M54.2 ICD-9: 723.1 03/22/2015 Encounter for immunization ICD-10: Z23 ICD-9: V06.6 03/22/2015 Spinal stenosis, lumbar region ICD-10: M48.06 ICD-9: 724.02 03/22/2015 Pain in left shoulder ICD-10: M25.512 ICD-9: 719.41 02/22/2015 Zoster without complications ICD-10: B02.9 ICD-9: 053.9 02/22/2015 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 ICD-9: 311 02/22/2015 ESSENTIAL HYPERTENSION ICD-9: 401.9 12/13 LUMBAGO ICD-9: 724.2 12/13/2014 Cervicalgia ICD-9: 723.1 12/13/2014 DEPRESSIVE DISORDER NEC ICD-9: 311 2014 Trigger point of left shoulder region ICD-9: 719.41 08/22/2014 Arthralgia ICD-9: 719.40 03/02/2014 HYPOTHYROIDISM ICD-9: 244.9 11/15/2013 GROSS HEMATURIA ICD-9: 599.71 09/13/2013 DYSURIA ICD-9: 788.1 09/02/2013 Incisional pain ICD-9: 782.0 06/29/2013 SALIVARY GLAND DIS ICD-9: 527.9 2012 Syncope, near ICD-9: 780.2 02/16/2013 Parotid gland fullness ICD-9: 527.8 02/16 VACCIN FOR INFLUENZA ICD-9: V04.81 2012 Back pain ICD-9: 724.5 10/07/2012 History of UTI ICD-9: V13.02 10/07/2012 Myalgia ICD-9: 729.1 10/07/2012 Stage III chronic kidney disease ICD-9: 585.3 06/23/2012 Encounter for long-term (current) use of medications ICD-9: V58.69 02/23/2012 HYPERLIPIDEMIA ICD-9: 272.4 02/23/2012 NONUNION OF FRACTURE ICD-9: 733.82 2011 Thrush, oral ICD-9: 112.0 06/16/2011 Knee pain, right ICD-9: 719.46 2011 VAC STREP PNEUMONIAE-FLU ICD-9: V06.6 Conjunctivitis ICD-9: 372.30 01/08/2011 Reason For Visit Reason For Visit Effective Dates Notes sore throat 05/05/2017 Hospital Follow Up 04/21/2017 resolved Hospital Follow Up 03/31/2017 Hospital Follow Up 03/02/2017 hypertension 12/16/2016 hypertension 11/18/2016 edema 09/22/2016 hypertension 07/29/2016 hypertension 06/03/2016 hypertension 02/13/2016 neck pain 10/17/2015 neck pain 07/11/2015 cough 06/29/2015 knee pain 04/02/2015 neck pain 03/22/2015 neck pain 02/22/2015 hypertension 12/13/2014 neck pain 09/05/2014 night sweats neck pain 08/22/2014 hypertension 05/30/2014 hypertension 03/02/2014 hypertension 11/15/2013 hematuria 09/13/2013 hematuria 08/31/2013 skin lesion 06/29/2013 hypertension 06/15/2013 Hospital Follow Up 05/25/2013 Hospital Follow Up 03/03/2013 facial swelling 02/16/2013 neck pain 02/02/2013 pain 10/07/2012 hypertension 08/18/2012 hypertension 07/14/2012 hypertension 06/23/2012 blood pressure followup 02/19/2012 blood pressure followup 08/05/2011 pt stated she is in a lot of pain today back pain 07/07/2011 back pain 06/16/2011 blood pressure followup 02/17/2011 Pt states her bp has been stable in the 130's 70's while exercising eye pain 01/08/2011 Results Observation Observation Code Item Item Code Result Date Random Urine Protein/Creatinine Ratio [id number] U Prot 33.0 mg/dl 03/24/2017 Random Urine Protein/Creatinine Ratio [id number] U CREAT 76.0 mg/dL 03/24/2017 Random Urine Protein/Creatinine Ratio [id number] R MTP/Creat Ratio 0.43 03/24/2017 Urinalysis Ord28 U-Color Yellow 03/24/2017 Urinalysis Ord28 U-Clarity Slightly Cloudy 03/24/2017 Urinalysis Ord28 U-Gluc Negative 03/24/2017 Urinalysis Ord28 U-Bili Negative 03/24/2017 Urinalysis Ord28 U-Ketone Negative 03/24/2017 Urinalysis Ord28 U-SG 1.015 03/24/2017 Urinalysis Ord28 U-Blood Negative 03/24/2017 Urinalysis Ord28 U-pH 5.5 03/24/2017 Urinalysis Ord28 U-Protein 30 mg/dL 03/24/2017 Urinalysis Ord28 U-Urobilin 0.2 E.U./dL E.U./dL 03/24/2017 Urinalysis Ord28 U-Nitrites Negative 03/24/2017 Urinalysis Ord28 U-Leuk Moderate 03/24/2017 Urinalysis Ord28 U-Bact 1+ 03/24/2017 Urinalysis Ord28 U-Squamous Epi 0-5 per/HPF 03/24/2017 Urinalysis Ord28 U-Crystal None per/HPF 03/24/2017 Urinalysis Ord28 U-Mucus None 03/24/2017 Urinalysis Ord28 U-Renal tubular epi None 03/24/2017 Urinalysis Ord28 U-RBC None per/HPF 03/24/2017 Urinalysis Ord28 U-Transitional epi None per/HPF 03/24/2017 Urinalysis Ord28 U-WBC 75-100 per/HPF 03/24/2017 Urinalysis Ord28 U-Cast None per/HPF 03/24/2017 Urinalysis Ord28 U-VOL VOLUME SUFFICIENT (10mL) 03/24/2017 Urinalysis Ord28 U-Yeast NEGATIVE 03/24/2017 Urinalysis Ord28 U-Com Urine saved if culture needed (specimen acceptable for 48 hours from collection if refrigerated) 03/24/2017 Vitamin D 25 Oh [id number] VITAMIN D, 25 HYDROXY 64.48 ng/mL Cbc With Differential Ord2 WBC 5.31 K/ul 03/24/2017 Cbc With Differential Ord2 RBC 4.05 M/ul 03/24/2017 Cbc With Differential Ord2 HGB 11.6 g/dl 03/24/2017 Cbc With Differential Ord2 HCT 36.7 % 03/24/2017 Cbc With Differential Ord2 Neut% 65.4 % 03/24/2017 Cbc With Differential Ord2 MCV 90.6 fl 03/24/2017 Cbc With Differential Ord2 Lymph% 22.6 % 03/24/2017 Cbc With Differential Ord2 MCH 28.6 pg 03/24/2017 Cbc With Differential Ord2 [place]% 9.0 % 03/24/2017 Cbc With Differential Ord2 Eos% 2.4 % 03/24/2017 Cbc With Differential Ord2 MCHC 31.6 pg 03/24/2017 Cbc With Differential Ord2 Baso% 0.6 % 03/24/2017 Cbc With Differential Ord2 PLT 252 K/ul 03/24/2017 Cbc With Differential Ord2 Neut ABS# 3.47 K/ul 03/24/2017 Cbc With Differential Ord2 RDW 13.8 % 03/24/2017 Cbc With Differential Ord2 Lymph ABS# 1.20 K/ul 03/24/2017 Cbc With Differential Ord2 [place] ABS# 0.5 K/ul 03/24/2017 Cbc With Differential Ord2 Eos ABS# 0.1 K/ul 03/24/2017 Cbc With Differential Ord2 Baso ABS# 0.0 K/ul 03/24/2017 Renal Feh109 NA 139 mEq/L 03/24/2017 Renal Uzx185 K 4.5 mEq/L 03/24/2017 Renal Hgf109 CL 104 mEq/L 03/24/2017 Renal Asr766 CO2 28.0 mEq/L 03/24/2017 Renal Abe053 ANION GAP 12 03/24/2017 Renal Rel212 Osmo 282 mOsmo 03/24/2017 Renal Wfy862 GLUCOSE 96 mg/dL 03/24/2017 Renal Saz319 BUN 26 mg/dL 03/24/2017 Renal Ydk704 Creat 1.5 mg/dL 03/24/2017 Renal Sfl101 eGFR 34 ml/min/1.73m2 03/24/2017 Renal Sty043 B/C Ratio 17.0 Ratio 03/24/2017 Renal Meq040 CALCIUM 9.3 mg/dL 03/24/2017 Renal Amd249 PHOS 4.0 mg/dL 03/24/2017 Renal Lao283 ALBUMIN 4.1 g/dL 03/24/2017 Cbc With Differential Ord2 WBC 5.67 K/ul 12/17/2016 Cbc With Differential Ord2 RBC 4.11 M/ul 12/17/2016 Cbc With Differential Ord2 HGB 12.0 g/dl 12/17/2016 Cbc With Differential Ord2 HCT 37.6 % 12/17/2016 Cbc With Differential Ord2 Neut% 65.4 % 12/17/2016 Cbc With Differential Ord2 MCV 91.5 fl 12/17/2016 Cbc With Differential Ord2 Lymph% 22.0 % 12/17/2016 Cbc With Differential Ord2 MCH 29.2 pg 12/17/2016 Cbc With Differential Ord2 [place]% 10.2 % 12/17/2016 Cbc With Differential Ord2 MCHC 31.9 pg 12/17/2016 Cbc With Differential Ord2 Eos% 1.9 % 12/17/2016 Cbc With Differential Ord2 PLT 258 K/ul 12/17/2016 Cbc With Differential Ord2 Baso% 0.5 % 12/17/2016 Cbc With Differential Ord2 Neut ABS# 3.70 K/ul 12/17/2016 Cbc With Differential Ord2 RDW 13.8 % 12/17/2016 Cbc With Differential Ord2 Lymph ABS# 1.25 K/ul 12/17/2016 Cbc With Differential Ord2 [place] ABS# 0.6 K/ul 12/17/2016 Cbc With Differential Ord2 Eos ABS# 0.1 K/ul 12/17/2016 Cbc With Differential Ord2 Baso ABS# 0.0 K/ul 12/17/2016 Lipid Ord30 CHOL 208 mg/dL 12/17/2016 Lipid Ord30 HDL 53.0 mg/dl 12/17/2016 Lipid Ord30 TRIG 151 mg/dL 12/17/2016 Lipid Ord30 LDL 125 mg/dL 12/17/2016 Lipid Ord30 C/HDL 3.9 Ratio 12/17/2016 Comp Metabolic Qoe433 NA 140 mEq/L 12/17/2016 Comp Metabolic Vhc974 K 4.9 mEq/L 12/17/2016 Comp Metabolic Ztc837 CL 105 mEq/L 12/17/2016 Comp Metabolic Qif819 CO2 25.0 mEq/L 12/17/2016 Comp Metabolic Fct927 ANION GAP 15 12/17/2016 Comp Metabolic Umr375 GLUCOSE 82 mg/dL 12/17/2016 Comp Metabolic Dgn648 Creat 1.5 mg/dL 12/17/2016 Comp Metabolic Nmy682 eGFR 35 ml/min/1.73m2 12/17/2016 Comp Metabolic Qfj959 BUN 38 mg/dL 12/17/2016 Comp Metabolic Xfp032 B/C Ratio 25.5 Ratio 12/17/2016 Comp Metabolic Mnk170 CALCIUM 9.1 mg/dL 12/17/2016 Comp Metabolic Nsw848 ALK PHOS 52 U/L 12/17/2016 Comp Metabolic Lnj338 AST(SGOT) 11 U/L 12/17/2016 Comp Metabolic Crd838 ALT(SGPT) 7 U/L 12/17/2016 Comp Metabolic Hku194 BILI T 0.6 mg/dL 12/17/2016 Comp Metabolic Ybw984 ALBUMIN 3.9 g/dL 12/17/2016 Comp Metabolic Mcm776 TPRO 6.2 g/dL 12/17/2016 Comp Metabolic Tjj995 GLOB 2.3 g/dL 12/17/2016 Comp Metabolic Znj028 A/G Ratio 1.7 Ratio 12/17/2016 Comp Metabolic Riu774 Osmo 288 mOsmo 12/17/2016 Tsh Ord6 hTSH II 2.90 uIU/mL 12/17/2016 Vitamin D 25 Oh Yed3159 VITAMIN D, 25 HYDROXY 33.42 ng/mL Free T4 Tci013 FREE T4 1.09 ng/dL 12/17/2016 Cbc With Differential Ord2 WBC 7.69 K/ul 07/08/2016 Cbc With Differential Ord2 RBC 4.22 M/ul 07/08/2016 Cbc With Differential Ord2 HGB 12.5 g/dl 07/08/2016 Cbc With Differential Ord2 HCT 38.9 % 07/08/2016 Cbc With Differential Ord2 Neut% 73.5 % 07/08/2016 Cbc With Differential Ord2 MCV 92.2 fl 07/08/2016 Cbc With Differential Ord2 Lymph% 15.9 % 07/08/2016 Cbc With Differential Ord2 [place]% 9.2 % 07/08/2016 Cbc With Differential Ord2 MCH 29.6 pg 07/08/2016 Cbc With Differential Ord2 MCHC 32.1 pg 07/08/2016 Cbc With Differential Ord2 Eos% 1.0 % 07/08/2016 Cbc With Differential Ord2 PLT 243 K/ul 07/08/2016 Cbc With Differential Ord2 Baso% 0.4 % 07/08/2016 Cbc With Differential Ord2 RDW 13.9 % 07/08/2016 Cbc With Differential Ord2 Neut ABS# 5.65 K/ul 07/08/2016 Cbc With Differential Ord2 Lymph ABS# 1.22 K/ul 07/08/2016 Cbc With Differential Ord2 [place] ABS# 0.7 K/ul 07/08/2016 Cbc With Differential Ord2 Eos ABS# 0.1 K/ul 07/08/2016 Cbc With Differential Ord2 Baso ABS# 0.0 K/ul 07/08/2016 Tsh Ord6 hTSH II 1.76 uIU/mL 07/08/2016 Comp Metabolic Oas588 NA 139 mEq/L 07/08/2016 Comp Metabolic Kdf752 K 5.4 mEq/L 07/08/2016 Comp Metabolic Pae011 CL 104 mEq/L 07/08/2016 Comp Metabolic Jdd300 CO2 29.0 mEq/L 07/08/2016 Comp Metabolic Vmh673 ANION GAP 11 07/08/2016 Comp Metabolic Lzh401 GLUCOSE 89 mg/dL 07/08/2016 Comp Metabolic Eay482 Creat 1.8 mg/dL 07/08/2016 Comp Metabolic Cjm456 eGFR 29 ml/min/1.73m2 07/08/2016 Comp Metabolic Qeu409 BUN 46 mg/dL 07/08/2016 Comp Metabolic Ppt721 B/C Ratio 25.8 Ratio 07/08/2016 Comp Metabolic Gzn676 CALCIUM 9.3 mg/dL 07/08/2016 Comp Metabolic Jlg769 ALK PHOS 46 U/L 07/08/2016 Comp Metabolic Vhn069 AST(SGOT) 14 U/L 07/08/2016 Comp Metabolic Jjm310 ALT(SGPT) 12 U/L 07/08/2016 Comp Metabolic Csc342 BILI T 0.9 mg/dL 07/08/2016 Comp Metabolic Cvu419 ALBUMIN 4.0 g/dL 07/08/2016 Comp Metabolic Qxz181 TPRO 6.6 g/dL 07/08/2016 Comp Metabolic Hkc054 GLOB 2.6 g/dL 07/08/2016 Comp Metabolic Tjk763 A/G Ratio 1.5 Ratio 07/08/2016 Comp Metabolic Muv040 Osmo 289 mOsmo 07/08/2016 Lipid Ord30 CHOL 154 mg/dL 07/08/2016 Lipid Ord30 HDL 69.0 mg/dl 07/08/2016 Lipid Ord30 TRIG 72 mg/dL 07/08/2016 Lipid Ord30 LDL 71 mg/dL 07/08/2016 Lipid Ord30 C/HDL 2.2 Ratio 07/08/2016 Free T4 Gno314 FREE T4 1.20 ng/dL 07/08/2016 Comp Metabolic Zvz524 NA 139 mEq/L 07/12/2015 Comp Metabolic Lrj971 K 4.8 mEq/L 07/12/2015 Comp Metabolic Vwc065 CL 106 mEq/L 07/12/2015 Comp Metabolic Evm350 CO2 26.0 mEq/L 07/12/2015 Comp Metabolic Zrj127 ANION GAP 12 07/12/2015 Comp Metabolic Esr980 GLUCOSE 86 mg/dL 07/12/2015 Comp Metabolic Iqo341 Creat 1.4 mg/dL 07/12/2015 Comp Metabolic Sgr933 eGFR 39 ml/min/1.73m2 07/12/2015 Comp Metabolic Tcq920 BUN 32 mg/dL 07/12/2015 Comp Metabolic Bus174 B/C Ratio 23.5 Ratio 07/12/2015 Comp Metabolic Mco051 CALCIUM 9.1 mg/dL 07/12/2015 Comp Metabolic Qjg312 ALK PHOS 52 U/L 07/12/2015 Comp Metabolic Uck398 AST(SGOT) 14 U/L 07/12/2015 Comp Metabolic Xzn929 ALT(SGPT) 12 U/L 07/12/2015 Comp Metabolic Plu437 BILI T 0.8 mg/dL 07/12/2015 Comp Metabolic Buc130 ALBUMIN 3.9 g/dL 07/12/2015 Comp Metabolic Ahr436 TPRO 6.4 g/dL 07/12/2015 Comp Metabolic Sqn163 GLOB 2.5 g/dL 07/12/2015 Comp Metabolic Gdm311 A/G Ratio 1.6 Ratio 07/12/2015 Comp Metabolic Hly594 Osmo 284 mOsmo 07/12/2015 Tsh Ord6 hTSH II 1.94 uIU/mL 07/12/2015 Free T4 Myk218 FREE T4 1.08 ng/dL 07/12/2015 Lipid Ord30 CHOL 143 mg/dL 07/12/2015 Lipid Ord30 HDL 69.0 mg/dl 07/12/2015 Lipid Ord30 TRIG 59 mg/dL 07/12/2015 Lipid Ord30 LDL 62 mg/dL 07/12/2015 Lipid Ord30 C/HDL 2.1 Ratio 07/12/2015 %Hba1C Nba081 % HbA1c 94088-1 5.8 % 07/12/2015 %Hba1C Xeo807 Gluc Ave 120 mg/dL 07/12/2015 Cbc With Differential Ord2 WBC 6.79 K/ul 07/12/2015 Cbc With Differential Ord2 RBC 4.28 M/ul 07/12/2015 Cbc With Differential Ord2 HGB 12.3 g/dl 07/12/2015 Cbc With Differential Ord2 HCT 38.2 % 07/12/2015 Cbc With Differential Ord2 Neut% 75.0 % 07/12/2015 Cbc With Differential Ord2 MCV 89.3 fl 07/12/2015 Cbc With Differential Ord2 Lymph% 16.5 % 07/12/2015 Cbc With Differential Ord2 [place]% 7.4 % 07/12/2015 Cbc With Differential Ord2 MCH 28.7 pg 07/12/2015 Cbc With Differential Ord2 Eos% 1.0 % 07/12/2015 Cbc With Differential Ord2 MCHC 32.2 pg 07/12/2015 Cbc With Differential Ord2 PLT 321 K/ul 07/12/2015 Cbc With Differential Ord2 Baso% 0.1 % 07/12/2015 Cbc With Differential Ord2 RDW 15.5 % 07/12/2015 Cbc With Differential Ord2 Neut ABS# 5.09 K/ul 07/12/2015 Cbc With Differential Ord2 Lymph ABS# 1.12 K/ul 07/12/2015 Cbc With Differential Ord2 [place] ABS# 0.5 K/ul 07/12/2015 Cbc With Differential Ord2 Eos ABS# 0.1 K/ul 07/12/2015 Cbc With Differential Ord2 Baso ABS# 0.0 K/ul 07/12/2015 Cbc With Differential Ord2 New Analyzer Notice Please note new ref ranges starting 05-16-2015 due to implemntation of new five part differential hematolgy analyzer. 07/12/2015 %Hba1C Cau444 % HbA1c 91506-5 5.6 % 12/14/2014 %Hba1C Rmt717 Gluc Ave 114 mg/dL 12/14/2014 Comp Metabolic Svt096 NA 136 mEq/L 12/13/2014 Comp Metabolic Mfr415 K 4.7 mEq/L 12/13/2014 Comp Metabolic Mpt316 CL 104 mEq/L 12/13/2014 Comp Metabolic Osc162 CO2 26.0 mEq/L 12/13/2014 Comp Metabolic Omu648 ANION GAP 11 12/13/2014 Comp Metabolic Rnl085 GLUCOSE 86 mg/dL 12/13/2014 Comp Metabolic Pmj885 Creat 1.6 mg/dL 12/13/2014 Comp Metabolic Iwt169 eGFR 33 ml/min/1.73m2 12/13/2014 Comp Metabolic Hli096 BUN 37 mg/dL 12/13/2014 Comp Metabolic Vef549 B/C Ratio 23.4 Ratio 12/13/2014 Comp Metabolic Fbs214 CALCIUM 9.0 mg/dL 12/13/2014 Comp Metabolic Tau957 ALK PHOS 53 U/L 12/13/2014 Comp Metabolic Rfk960 AST(SGOT) 17 U/L 12/13/2014 Comp Metabolic Tnq567 ALT(SGPT) 17 U/L 12/13/2014 Comp Metabolic Kzb924 BILI T 0.6 mg/dL 12/13/2014 Comp Metabolic Udt254 ALBUMIN 4.0 g/dL 12/13/2014 Comp Metabolic Fbn524 TPRO 6.3 g/dL 12/13/2014 Comp Metabolic Rqy847 GLOB 2.3 g/dL 12/13/2014 Comp Metabolic Jpe814 A/G Ratio 1.7 Ratio 12/13/2014 Comp Metabolic Owg490 Osmo 280 mOsmo 12/13/2014 Free T4 Ecg271 FREE T4 1.34 ng/dL 12/13/2014 Cbc With Differential Ord2 WBC 5.9 K/uL 12/13/2014 Cbc With Differential Ord2 LYM 1.3 K/uL 12/13/2014 Cbc With Differential Ord2 LYM% 22.8 % 12/13/2014 Cbc With Differential Ord2 NEUT/GRAN 4.1 K/uL 12/13/2014 Cbc With Differential Ord2 NEUT/GRAN % 69.3 % 12/13/2014 Cbc With Differential Ord2 MID 0.5 K/uL 12/13/2014 Cbc With Differential Ord2 MID% 7.9 % 12/13/2014 Cbc With Differential Ord2 RBC 3.88 M/uL 12/13/2014 Cbc With Differential Ord2 HGB 11.6 g/dL 12/13/2014 Cbc With Differential Ord2 HCT 35.2 % 12/13/2014 Cbc With Differential Ord2 MCV 91 fL 12/13/2014 Cbc With Differential Ord2 MCH 30 pg 12/13/2014 Cbc With Differential Ord2 MCHC 33 g/dL 12/13/2014 Cbc With Differential Ord2 PLT 218 K/uL 12/13/2014 Cbc With Differential Ord2 RDW 14.8 % 12/13/2014 Tsh Ord6 hTSH II 1.16 uIU/mL 12/13/2014 GFR CALC 3748181 GFR AA 43.0L ML/MIN 11/15/2013 GFR CALC 9240575 GFR NON-AA 36.0L ML/MIN 11/15/2013 TSH 3749215 TSH 1.474 uIU/ML 11/15/2013 FREE T4 1677717 FREE T4 1.50 NG/DL 11/15/2013 CHEM 14 1071997 AST 19 U/L 11/15/2013 CHEM 14 6531391 ALT 17 IU/L 11/15/2013 CHEM 14 9513468 BUN 37 MG/DL 11/15/2013 CHEM 14 9756797 ALBUMIN 4.5 GM/DL 11/15/2013 CHEM 14 6119404 CHLORIDE 105 MMOL/L 11/15/2013 CHEM 14 3141591 BILI TOT 0.8 MG/DL 11/15/2013 CHEM 14 6547890 ALK PHOS 59 U/L 11/15/2013 CHEM 14 4302056 SODIUM 138 MMOL/L 11/15/2013 CHEM 14 9473836 CREATININE 1.41 MG/DL 11/15/2013 CHEM 14 9519062 CALCIUM 9.6 MG/DL 11/15/2013 CHEM 14 0590191 POTASSIUM 4.3 MMOL/L 11/15/2013 CHEM 14 9040270 PROT TOT 6.8 GM/DL 11/15/2013 CHEM 14 [id number] GLUCOSE 75 MG/DL 11/15/2013 CHEM 14 6039555 BICARB 25 MMOL/L 11/15/2013 CHEM 14 1870762 ANION GAP 8 MEQ/L 11/15/2013 CBC 3226720 WBC 6.3 10e9/L 11/15/2013 CBC 9792021 RBC 4.28 10e12/L 11/15/2013 CBC 1297965 HGB 12.6 g/dL 11/15/2013 CBC 9551318 HCT DET 38.3 % 11/15/2013 CBC 8111243 MCV 89.5 fL 11/15/2013 CBC 9153562 MCH 29.4 pg 11/15/2013 CBC 9523824 MCHC 32.9 g/dL 11/15/2013 CBC 6389192 PLT 257 10e9/L 11/15/2013 CBC 5865426 MPV 10.5 fL 11/15/2013 CBC 3827530 MACHO % 67.7 % 11/15/2013 CBC 7587037 LY % 20.4 % 11/15/2013 CBC 3016153 MON % 10.5 % 11/15/2013 CBC 4988527 EOS % 1.1 % 11/15/2013 CBC 2407108 BASO % 0.3 % 11/15/2013 CBC 1884406 RDW 13.7 % 11/15/2013 CBC 3736855 ABS MACHO 4.27 10e9/L 11/15/2013 CBC 8655710 ABS LYMPH 1.29 10e9/L 11/15/2013 CBC 2562262 ABS MONO 0.66 10e9/L 11/15/2013 CBC 3537735 ABS EOS 0.07 10e9/L 11/15/2013 CBC 2468178 ABS BASO 0.02 10e9/L 11/15/2013 CBC 1144515 RDW-SD 44.0 fL 11/15/2013 TSH 1038525 TSH 2.498 uIU/ML 10/08/2012 ESR [id number] ESR 18 MM/HR 10/08/2012 FREE T4 [id number] FREE T4 1.67 NG/DL 10/08/2012 CPK 3040078 CPK 36 U/L 10/07/2012 CHEM 14 8363784 AST 22 U/L 10/07/2012 CHEM 14 0130681 ALT 13 U/L 10/07/2012 CHEM 14 4646231 BUN 48 MG/DL 10/07/2012 CHEM 14 8873366 ALBUMIN 4.2 GM/DL 10/07/2012 CHEM 14 1913189 CHLORIDE 100 MMOL/L 10/07/2012 CHEM 14 1682444 BILI TOT 0.8 MG/DL 10/07/2012 CHEM 14 7355923 ALK PHOS 49 U/L 10/07/2012 CHEM 14 0586226 SODIUM 137 MMOL/L 10/07/2012 CHEM 14 1191023 CREATININE 1.94 MG/DL 10/07/2012 CHEM 14 1049324 CALCIUM 9.0 MG/DL 10/07/2012 CHEM 14 4181723 POTASSIUM 4.6 MMOL/L 10/07/2012 CHEM 14 4614612 PROT TOT 6.6 GM/DL 10/07/2012 CHEM 14 4423913 GLUCOSE 85 MG/DL 10/07/2012 CHEM 14 2685487 BICARB 25 MMOL/L 10/07/2012 CHEM 14 4121507 ANION GAP 12 MMOL/L 10/07/2012 CRP 4183651 CRP 0.2 MG/DL 10/07/2012 CBC 6593611 WBC 6.1 10e9/L 10/07/2012 CBC 9457266 RBC 4.21 10e12/L 10/07/2012 CBC [id number] HGB 12.5 g/dL 10/07/2012 CBC [id number] HCT DET 37.9 % 10/07/2012 CBC [id number] MCV 90.0 fL 10/07/2012 CBC [id number] MCH 29.7 pg 10/07/2012 CBC [id number] MCHC 33.0 g/dL 10/07/2012 CBC [id number] PLT 325 10e9/L 10/07/2012 CBC [id number] MPV 10.3 fL 10/07/2012 CBC [id number] MACHO % 67.3 % 10/07/2012 CBC [id number] LY % 21.1 % 10/07/2012 CBC [id number] MON % 10.3 % 10/07/2012 CBC [id number] EOS % 1.0 % 10/07/2012 CBC [id number] BASO % 0.3 % 10/07/2012 CBC [id number] RDW 14.5 % 10/07/2012 CBC [id number] ABS MACHO 4.11 10e9/L 10/07/2012 CBC [id number] ABS LYMPH 1.29 10e9/L 10/07/2012 CBC [id number] ABS MONO 0.63 10e9/L 10/07/2012 CBC [id number] ABS EOS 0.06 10e9/L 10/07/2012 CBC [id number] ABS BASO 0.02 10e9/L 10/07/2012 CBC [id number] RDW-SD 46.9 fL 10/07/2012 GFR CALC [id number] GFR AA 30.0L ML/MIN 10/07/2012 GFR CALC [id number] GFR NON-AA 25.0L ML/MIN 10/07/2012 FREE T4 [id number] FREE T4 1.41 NG/DL 02/24/2012 LIPID GRP HDL TEST 65 MG/DL 02/23/2012 LIPID GRP TRIG 133 MG/DL 02/23/2012 LIPID GRP TEST LDL 58 MG/DL 02/23/2012 LIPID GRP CHOL 150 MG/DL 02/23/2012 LIPID GRP RCHOL/HDL 2.31 RATIO 02/23/2012 CBC [id number] WBC 6.1 10e9/L 02/23/2012 CBC [id number] RBC 4.15 10e12/L 02/23/2012 CBC [id number] HGB 12.3 g/dL 02/23/2012 CBC [id number] HCT DET 38.4 % 02/23/2012 CBC [id number] MCV 92.5 fL 02/23/2012 CBC [id number] MCH 29.6 pg 02/23/2012 CBC [id number] MCHC 32.0 g/dL 02/23/2012 CBC [id number] PLT 266 10e9/L 02/23/2012 CBC [id number] MPV 10.4 fL 02/23/2012 CBC [id number] MACHO % 62.5 % 02/23/2012 CBC [id number] LY % 25.7 % 02/23/2012 CBC [id number] MON % 10.0 % 02/23/2012 CBC [id number] EOS % 1.5 % 02/23/2012 CBC [id number] BASO % 0.3 % 02/23/2012 CBC [id number] RDW 13.4 % 02/23/2012 CBC [id number] ABS MACHO 3.81 10e9/L 02/23/2012 CBC [id number] ABS LYMPH 1.57 10e9/L 02/23/2012 CBC [id number] ABS MONO 0.61 10e9/L 02/23/2012 CBC [id number] ABS EOS 0.09 10e9/L 02/23/2012 CBC [id number] ABS BASO 0.02 10e9/L 02/23/2012 CBC [id number] RDW-SD 44.3 fL 02/23/2012 TSH [id number] TSH 5.107 uIU/ML 02/23/2012 CHEM 14 [id number] AST 17 U/L 02/23/2012 CHEM 14 [id number] ALT 15 IU/L 02/23/2012 CHEM 14 [id number] BUN 27 MG/DL 02/23/2012 CHEM 14 [id number] ALBUMIN 4.1 GM/DL 02/23/2012 CHEM 14 [id number] CHLORIDE 107 MMOL/L 02/23/2012 CHEM 14 [id number] BILI TOT 0.6 MG/DL 02/23/2012 CHEM 14 [id number] ALK PHOS 53 U/L 02/23/2012 CHEM 14 [id number] SODIUM 141 MMOL/L 02/23/2012 CHEM 14 [id number] CREATININE 1.30 MG/DL 02/23/2012 CHEM 14 [id number] CALCIUM 9.2 MG/DL 02/23/2012 CHEM 14 [id number] POTASSIUM 4.0 MMOL/L 02/23/2012 CHEM 14 [id number] PROT TOT 6.3 GM/DL 02/23/2012 CHEM 14 [id number] GLUCOSE 81 MG/DL 02/23/2012 CHEM 14 [id number] BICARB 26 MMOL/L 02/23/2012 CHEM 14 [id number] ANION GAP 8 MEQ/L 02/23/2012 GFR CALC [id number] GFR AA 48.0L ML/MIN 02/23/2012 GFR CALC [id number] GFR NON-AA 39.0L ML/MIN 02/23/2012 URINALYSIS NONAUTO W/O SCOPE 42894 Specific [place] 1.020 DateTime(Free Text in Aprima) URINALYSIS NONAUTO W/O SCOPE 84827 PH 7.2 DateTime(Free Text in Aprima) URINALYSIS NONAUTO W/O SCOPE 43961 GLUCOSE neg DateTime( Free Text in Aprima) URINALYSIS NONAUTO W/O SCOPE 53713 Protein 2+ DateTime( Free Text in Aprima) URINALYSIS NONAUTO W/O SCOPE 57495 Blood 1+ DateTime(Free Text in Aprima) URINALYSIS NONAUTO W/O SCOPE 48560 Bilirubin neg DateTime(Free Text in Aprima) URINALYSIS NONAUTO W/O SCOPE 92352 Ketones neg DateTime( Free Text in Aprima) URINALYSIS NONAUTO W/O SCOPE 46071 Urobilinogen neg DateTime(Free Text in Aprima) URINALYSIS NONAUTO W/O SCOPE 90027 Nitrite neg DateTime( Free Text in Aprima) URINALYSIS NONAUTO W/O SCOPE 61815 Leukocytes 1+ DateTime(Free Text in Aprima) URINALYSIS NONAUTO W/O SCOPE 80844 Specific [place] 1.010 DateTime(Free Text in Aprima) URINALYSIS NONAUTO W/O SCOPE 02266 PH 5 DateTime(Free Text in Aprima) URINALYSIS NONAUTO W/O SCOPE 44349 GLUCOSE DateTime( Free Text in Aprima) URINALYSIS NONAUTO W/O SCOPE 67570 Protein DateTime( Free Text in Aprima) URINALYSIS NONAUTO W/O SCOPE 99075 Blood DateTime(Free Text in Aprima) URINALYSIS NONAUTO W/O SCOPE 37067 Bilirubin DateTime( Free Text in Aprima) URINALYSIS NONAUTO W/O SCOPE 08495 Ketones DateTime( Free Text in Aprima) URINALYSIS NONAUTO W/O SCOPE 56422 Urobilinogen DateTime (Free Text in Aprima) URINALYSIS NONAUTO W/O SCOPE 43919 Nitrite DateTime( Free Text in Aprima) URINALYSIS NONAUTO W/O SCOPE 67246 Leukocytes DateTime( Free Text in Aprima) URINALYSIS NONAUTO W/O SCOPE 22543 Specific [place] 1.010 DateTime(Free Text in Aprima) URINALYSIS NONAUTO W/O SCOPE 54278 PH 7.5 DateTime(Free Text in Aprima) URINALYSIS NONAUTO W/O SCOPE 08915 GLUCOSE DateTime( Free Text in Aprima) URINALYSIS NONAUTO W/O SCOPE 54576 Protein DateTime( Free Text in Aprima) URINALYSIS NONAUTO W/O SCOPE 22229 Blood 3+ DateTime(Free Text in Aprima) URINALYSIS NONAUTO W/O SCOPE 79137 Bilirubin DateTime( Free Text in Aprima) URINALYSIS NONAUTO W/O SCOPE 40593 Ketones DateTime( Free Text in Aprima) URINALYSIS NONAUTO W/O SCOPE 53811 Urobilinogen DateTime (Free Text in Aprima) URINALYSIS NONAUTO W/O SCOPE 93396 Nitrite DateTime( Free Text in Aprima) URINALYSIS NONAUTO W/O SCOPE 52351 Leukocytes DateTime( Free Text in Aprima) UA 36321 Specific [place] DateTime(Free Text in Aprima) UA 80010 PH DateTime(Free Text in Aprima) UA 75403 GLUCOSE DateTime(Free Text in Aprima) UA 50512 Protein DateTime(Free Text in Aprima) UA 15144 Blood DateTime(Free Text in Aprima) UA 97590 Bilirubin DateTime(Free Text in Aprima) UA 10764 Ketones DateTime(Free Text in Aprima) UA 83978 Urobilinogen DateTime(Free Text in Aprima) UA 16555 Nitrite DateTime(Free Text in Aprima) UA 24550 Leukocytes DateTime(Free Text in Aprima) Review of Systems System Result Effective Dates Constitutional recent illness 05/05/2017 Constitutional No insomnia 05/05/2017 Eyes No blindness 05/05/2017 Eyes No vision change 05/05/2017 Ears/Nose/Throat/Neck No postnasal drip 05/05/2017 Cardiovascular No chest pain/pressure 06/2017 Cardiovascular No dyspnea 05/05/2017 Cardiovascular No edema 05/05/2017 Respiratory No chest congestion 2017 Respiratory No cough 05/05/2017 Gastrointestinal No abdominal pain 2017 Gastrointestinal No constipation 2017 Gastrointestinal No diarrhea 05/05/2017 Gastrointestinal No nausea 05/05/2017 Gastrointestinal No vomiting 05/05/2017 Musculoskeletal stiffness 05/05/2017 Musculoskeletal arthralgia(s) 05/05/2017 Musculoskeletal muscle weakness 2017 Musculoskeletal shoulder pain 05/05/2017 Dermatologic No rash 05/05/2017 Dermatologic No scar 05/05/2017 Psychiatric No anxiety 05/05/2017 Psychiatric depression 05/05/2017 Constitutional fatigue 05/05/2017 Constitutional No fever 05/05/2017 Constitutional No recent illness 2016 Constitutional No insomnia 04/21/2017 Eyes No blindness 04/21/2017 Eyes No vision change 04/21/2017 Ears/Nose/Throat/Neck No postnasal drip 04/21/2017 Cardiovascular No chest pain/pressure Cardiovascular No dyspnea 04/21/2017 Cardiovascular No edema 04/21/2017 Cardiovascular hypertension 04/21/2017 Respiratory No chest congestion 2016 Respiratory No cough 04/21/2017 Gastrointestinal No abdominal pain 2016 Gastrointestinal No constipation 2016 Gastrointestinal No diarrhea 04/21/2017 Gastrointestinal No nausea 04/21/2017 Gastrointestinal No vomiting 04/21/2017 Genitourinary/Nephrology No dysuria 04/21 Musculoskeletal stiffness 04/21/2017 Musculoskeletal arthralgia(s) 04/21/2017 Musculoskeletal back pain 04/21/2017 Psychiatric No anxiety 04/21/2017 Psychiatric depression 04/21/2017 Constitutional No recent illness 2016 Constitutional No insomnia 03/31/2017 Eyes No blindness 03/31/2017 Eyes No vision change 03/31/2017 Ears/Nose/Throat/Neck No postnasal drip 03/31/2017 Cardiovascular No chest pain/pressure Cardiovascular No dyspnea 03/31/2017 Cardiovascular No edema 03/31/2017 Cardiovascular hypertension 03/31/2017 Respiratory No chest congestion 2016 Respiratory No cough 03/31/2017 Gastrointestinal No abdominal pain 2016 Gastrointestinal No constipation 2016 Gastrointestinal No diarrhea 03/31/2017 Gastrointestinal No nausea 03/31/2017 Gastrointestinal No vomiting 03/31/2017 Genitourinary/Nephrology No dysuria 03/31 Musculoskeletal stiffness 03/31/2017 Musculoskeletal arthralgia(s) 03/31/2017 Musculoskeletal back pain 03/31/2017 Psychiatric No anxiety 03/31/2017 Psychiatric depression 03/31/2017 Constitutional No recent illness 2016 Constitutional No insomnia 03/02/2017 Eyes No blindness 03/02/2017 Eyes No vision change 03/02/2017 Ears/Nose/Throat/Neck No postnasal drip 03/02/2017 Cardiovascular No chest pain/pressure Cardiovascular No dyspnea 03/02/2017 Cardiovascular No edema 03/02/2017 Cardiovascular hypertension 03/02/2017 Respiratory No chest congestion 2016 Respiratory No cough 03/02/2017 Gastrointestinal No abdominal pain 2016 Gastrointestinal No constipation 2016 Gastrointestinal No diarrhea 03/02/2017 Gastrointestinal No nausea 03/02/2017 Gastrointestinal No vomiting 03/02/2017 Genitourinary/Nephrology No dysuria 03/02 Musculoskeletal stiffness 03/02/2017 Musculoskeletal arthralgia(s) 03/02/2017 Musculoskeletal back pain 03/02/2017 Dermatologic No scar 03/02/2017 Psychiatric No anxiety 03/02/2017 Psychiatric depression 03/02/2017 Neurologic No dizziness 03/02/2017 Neurologic No ataxia 03/02/2017 Constitutional No recent illness 2016 Constitutional No insomnia 12/16/2016 Eyes No blindness 12/16/2016 Eyes No vision change 12/16/2016 Ears/Nose/Throat/Neck No postnasal drip 12/16/2016 Cardiovascular No chest pain/pressure Cardiovascular No dyspnea 12/16/2016 Cardiovascular No edema 12/16/2016 Cardiovascular hypertension 12/16/2016 Respiratory No chest congestion 2016 Respiratory No cough 12/16/2016 Gastrointestinal No abdominal pain 2016 Gastrointestinal No constipation 2016 Gastrointestinal No diarrhea 12/16/2016 Gastrointestinal No nausea 12/16/2016 Gastrointestinal No vomiting 12/16/2016 Genitourinary/Nephrology No dysuria 12/16 Musculoskeletal stiffness 12/16/2016 Musculoskeletal arthralgia(s) 12/16/2016 Musculoskeletal back pain 12/16/2016 Musculoskeletal shoulder pain 12/16/2016 Dermatologic rash 12/16/2016 Dermatologic No scar 12/16/2016 Psychiatric No anxiety 12/16/2016 Psychiatric depression 12/16/2016 Constitutional No recent illness 2016 Constitutional No insomnia 11/18/2016 Eyes No blindness 11/18/2016 Eyes No vision change 11/18/2016 Ears/Nose/Throat/Neck No postnasal drip 11/18/2016 Cardiovascular No chest pain/pressure Cardiovascular No dyspnea 11/18/2016 Cardiovascular No edema 11/18/2016 Cardiovascular hypertension 11/18/2016 Respiratory No chest congestion 2016 Respiratory No cough 11/18/2016 Gastrointestinal No abdominal pain 2016 Gastrointestinal No constipation 2016 Gastrointestinal No diarrhea 11/18/2016 Gastrointestinal No nausea 11/18/2016 Gastrointestinal No vomiting 11/18/2016 Genitourinary/Nephrology No dysuria 11/18 Musculoskeletal stiffness 11/18/2016 Musculoskeletal arthralgia(s) 11/18/2016 Musculoskeletal back pain 11/18/2016 Musculoskeletal shoulder pain 11/18/2016 Dermatologic rash 11/18/2016 Dermatologic No scar 11/18/2016 Psychiatric No anxiety 11/18/2016 Psychiatric depression 11/18/2016 Constitutional No recent illness 2016 Eyes No eye erythema 09/22/2016 Eyes No vision change 09/22/2016 Ears/Nose/Throat/Neck No postnasal drip 09/22/2016 Cardiovascular No chest pain/pressure Cardiovascular No dyspnea 09/22/2016 Respiratory No chest congestion 2016 Respiratory No cough 09/22/2016 Musculoskeletal arthralgia(s) 09/22/2016 Constitutional No fever 09/22/2016 Constitutional No chills 09/22/2016 Constitutional No diaphoresis 09/22/2016 Respiratory No dyspnea 09/22/2016 Cardiovascular No palpitations 2016 Cardiovascular No near-syncope/dizziness 09/22/2016 Gastrointestinal No abdominal pain 2016 Neurologic No alteration of consciousness 09/22/2016 Neurologic No mental status change 2016 Constitutional No recent illness 2016 Constitutional No insomnia 07/29/2016 Eyes No blindness 07/29/2016 Eyes No vision change 07/29/2016 Ears/Nose/Throat/Neck No postnasal drip 07/29/2016 Cardiovascular No chest pain/pressure Cardiovascular No dyspnea 07/29/2016 Cardiovascular No edema 07/29/2016 Cardiovascular hypertension 07/29/2016 Respiratory No chest congestion 2016 Respiratory No cough 07/29/2016 Gastrointestinal No abdominal pain 2016 Gastrointestinal No constipation 2016 Gastrointestinal No diarrhea 07/29/2016 Gastrointestinal No nausea 07/29/2016 Gastrointestinal No vomiting 07/29/2016 Genitourinary/Nephrology No dysuria 07/29 Musculoskeletal stiffness 07/29/2016 Musculoskeletal arthralgia(s) 07/29/2016 Musculoskeletal back pain 07/29/2016 Musculoskeletal muscle weakness 2016 Musculoskeletal shoulder pain 07/29/2016 Dermatologic rash 07/29/2016 Dermatologic No scar 07/29/2016 Psychiatric No anxiety 07/29/2016 Psychiatric depression 07/29/2016 Constitutional No recent illness 2016 Constitutional No insomnia 06/03/2016 Eyes No blindness 06/03/2016 Eyes No vision change 06/03/2016 Ears/Nose/Throat/Neck No postnasal drip 06/03/2016 Cardiovascular No chest pain/pressure Cardiovascular No dyspnea 06/03/2016 Cardiovascular No edema 06/03/2016 Respiratory No chest congestion 2016 Respiratory No cough 06/03/2016 Gastrointestinal No abdominal pain 2016 Gastrointestinal No constipation 2016 Gastrointestinal No diarrhea 06/03/2016 Gastrointestinal No nausea 06/03/2016 Gastrointestinal No vomiting 06/03/2016 Genitourinary/Nephrology No dysuria 06/03 Musculoskeletal stiffness 06/03/2016 Musculoskeletal arthralgia(s) 06/03/2016 Musculoskeletal muscle weakness 2016 Musculoskeletal shoulder pain 06/03/2016 Dermatologic No rash 06/03/2016 Dermatologic No scar 06/03/2016 Psychiatric No anxiety 06/03/2016 Psychiatric depression 06/03/2016 Constitutional No recent illness 2015 Constitutional No insomnia 02/13/2016 Eyes No blindness 02/13/2016 Eyes No vision change 02/13/2016 Ears/Nose/Throat/Neck No postnasal drip 02/13/2016 Cardiovascular No chest pain/pressure 04/2016 Cardiovascular No dyspnea 02/13/2016 Cardiovascular No edema 02/13/2016 Respiratory No chest congestion 2015 Respiratory No cough 02/13/2016 Gastrointestinal No abdominal pain 2015 Gastrointestinal No constipation 2015 Gastrointestinal No diarrhea 02/13/2016 Gastrointestinal No nausea 02/13/2016 Gastrointestinal No vomiting 02/13/2016 Genitourinary/Nephrology No dysuria 02/12 Musculoskeletal stiffness 02/13/2016 Musculoskeletal arthralgia(s) 02/13/2016 Musculoskeletal shoulder pain 02/13/2016 Dermatologic rash 02/13/2016 Dermatologic No scar 02/13/2016 Psychiatric No anxiety 02/13/2016 Psychiatric depression 02/13/2016 Cardiovascular hypertension 02/13/2016 Musculoskeletal back pain 02/13/2016 Musculoskeletal muscle weakness 2015 Constitutional No recent illness 2015 Constitutional No insomnia 10/17/2015 Eyes No blindness 10/17/2015 Eyes No vision change 10/17/2015 Ears/Nose/Throat/Neck No postnasal drip 10/17/2015 Cardiovascular No chest pain/pressure Cardiovascular No dyspnea 10/17/2015 Cardiovascular No edema 10/17/2015 Respiratory No chest congestion 2015 Respiratory No cough 10/17/2015 Gastrointestinal No abdominal pain 2015 Gastrointestinal No constipation 2015 Gastrointestinal No diarrhea 10/17/2015 Gastrointestinal No nausea 10/17/2015 Gastrointestinal No vomiting 10/17/2015 Genitourinary/Nephrology No dysuria 10/16 Musculoskeletal stiffness 10/17/2015 Musculoskeletal arthralgia(s) 10/17/2015 Musculoskeletal muscle weakness 2015 Musculoskeletal shoulder pain 10/17/2015 Dermatologic rash 10/17/2015 Dermatologic No scar 10/17/2015 Psychiatric No anxiety 10/17/2015 Psychiatric depression 10/17/2015 Constitutional No recent illness 2015 Constitutional No insomnia 07/11/2015 Eyes No blindness 07/11/2015 Eyes No vision change 07/11/2015 Ears/Nose/Throat/Neck No postnasal drip 07/11/2015 Cardiovascular No chest pain/pressure 01/2016 Cardiovascular No dyspnea 07/11/2015 Cardiovascular No edema 07/11/2015 Respiratory No chest congestion 2015 Respiratory No cough 07/11/2015 Gastrointestinal No abdominal pain 2015 Gastrointestinal No constipation 2015 Gastrointestinal No diarrhea 07/11/2015 Gastrointestinal No nausea 07/11/2015 Gastrointestinal No vomiting 07/11/2015 Genitourinary/Nephrology No dysuria 07/10 Musculoskeletal stiffness 07/11/2015 Musculoskeletal arthralgia(s) 07/11/2015 Musculoskeletal muscle weakness 2015 Musculoskeletal shoulder pain 07/11/2015 Dermatologic rash 07/11/2015 Dermatologic No scar 07/11/2015 Psychiatric No anxiety 07/11/2015 Psychiatric depression 07/11/2015 Respiratory productive sputum 06/29/2015 Respiratory cough 06/29/2015 Respiratory No dyspnea on exertion 2015 Respiratory No dyspnea 06/29/2015 Respiratory No cigarette smoking 2015 Respiratory No chest tightness 2015 Respiratory No chest congestion 2015 Genitourinary/Nephrology No dysuria 06/29 Gastrointestinal No diarrhea 06/29/2015 Gastrointestinal No constipation 2015 Ears/Nose/Throat/Neck nasal discharge Ears/Nose/Throat/Neck No nasal allergies 06/29/2015 Ears/Nose/Throat/Neck hearing loss 2015 Ears/Nose/Throat/Neck otitis media 2015 Ears/Nose/Throat/Neck otalgia 06/29/2015 Ears/Nose/Throat/Neck postnasal drip Ears/Nose/Throat/Neck sinus congestion Ears/Nose/Throat/Neck No sore throat Cardiovascular chest pain/pressure 2015 Constitutional No recent illness 2015 Constitutional No anorexia 06/29/2015 Constitutional No night sweats 2015 Constitutional No chills 06/29/2015 Constitutional No diaphoresis 06/29/2015 Constitutional No fatigue 06/29/2015 Constitutional fever 06/29/2015 Constitutional No insomnia 06/29/2015 Constitutional No malaise 06/29/2015 Constitutional No weight loss 06/29/2015 Constitutional No weight gain 06/29/2015 Constitutional No obesity 06/29/2015 Respiratory nocturnal cough 06/29/2015 Eyes No eye discharge 06/29/2015 Eyes eye pain 06/29/2015 Eyes No vision change 06/29/2015 Musculoskeletal No myalgias 06/29/2015 Musculoskeletal No muscle weakness 2015 Musculoskeletal No joint complaint 2015 Musculoskeletal arthralgia(s) 06/29/2015 Dermatologic No rash 06/29/2015 Dermatologic No sores 06/29/2015 Psychiatric No depression 06/29/2015 Psychiatric No anxiety 06/29/2015 Constitutional No recent illness 2014 Constitutional No insomnia 04/02/2015 Eyes No blindness 04/02/2015 Eyes No vision change 04/02/2015 Cardiovascular No chest pain/pressure Cardiovascular No dyspnea 04/02/2015 Cardiovascular No edema 04/02/2015 Respiratory No chest congestion 2014 Respiratory No cough 04/02/2015 Gastrointestinal No abdominal pain 2014 Gastrointestinal No constipation 2014 Gastrointestinal No diarrhea 04/02/2015 Gastrointestinal No nausea 04/02/2015 Gastrointestinal No vomiting 04/02/2015 Musculoskeletal stiffness 04/02/2015 Musculoskeletal arthralgia(s) 04/02/2015 Musculoskeletal muscle weakness 2014 Dermatologic No rash 04/02/2015 Dermatologic No scar 04/02/2015 Psychiatric No anxiety 04/02/2015 Psychiatric depression 04/02/2015 Ears/Nose/Throat/Neck No nasal discharge 04/02/2015 Ears/Nose/Throat/Neck No nasal allergies 04/02/2015 Musculoskeletal joint complaint 2014 Constitutional No recent illness 2014 Constitutional No insomnia 03/22/2015 Eyes No blindness 03/22/2015 Eyes No vision change 03/22/2015 Ears/Nose/Throat/Neck No postnasal drip 03/22/2015 Cardiovascular No chest pain/pressure Cardiovascular No dyspnea 03/22/2015 Cardiovascular No edema 03/22/2015 Respiratory No chest congestion 2014 Respiratory No cough 03/22/2015 Gastrointestinal No abdominal pain 2014 Gastrointestinal No constipation 2014 Gastrointestinal No diarrhea 03/22/2015 Gastrointestinal No nausea 03/22/2015 Gastrointestinal No vomiting 03/22/2015 Genitourinary/Nephrology No dysuria 03/22 Musculoskeletal stiffness 03/22/2015 Musculoskeletal arthralgia(s) 03/22/2015 Musculoskeletal muscle weakness 2014 Musculoskeletal shoulder pain 03/22/2015 Dermatologic No rash 03/22/2015 Dermatologic No scar 03/22/2015 Psychiatric No anxiety 03/22/2015 Psychiatric depression 03/22/2015 Constitutional No recent illness 2014 Constitutional No insomnia 02/22/2015 Eyes No blindness 02/22/2015 Eyes No vision change 02/22/2015 Ears/Nose/Throat/Neck No postnasal drip 02/22/2015 Cardiovascular No chest pain/pressure Cardiovascular No dyspnea 02/22/2015 Cardiovascular No edema 02/22/2015 Respiratory No chest congestion 2014 Respiratory No cough 02/22/2015 Gastrointestinal No abdominal pain 2014 Gastrointestinal No constipation 2014 Gastrointestinal No diarrhea 02/22/2015 Gastrointestinal No nausea 02/22/2015 Gastrointestinal No vomiting 02/22/2015 Genitourinary/Nephrology No dysuria 02/22 Musculoskeletal stiffness 02/22/2015 Musculoskeletal arthralgia(s) 02/22/2015 Musculoskeletal muscle weakness 2014 Musculoskeletal shoulder pain 02/22/2015 Dermatologic No scar 02/22/2015 Psychiatric No anxiety 02/22/2015 Psychiatric depression 02/22/2015 Dermatologic rash 02/22/2015 Constitutional No recent illness 2014 Constitutional No insomnia 12/13/2014 Ears/Nose/Throat/Neck No postnasal drip 12/13/2014 Cardiovascular No chest pain/pressure 04/2015 Cardiovascular No dyspnea 12/13/2014 Cardiovascular No edema 12/13/2014 Respiratory No chest congestion 2014 Respiratory No cough 12/13/2014 Gastrointestinal No abdominal pain 2014 Gastrointestinal No constipation 2014 Gastrointestinal No diarrhea 12/13/2014 Gastrointestinal No nausea 12/13/2014 Gastrointestinal No vomiting 12/13/2014 Genitourinary/Nephrology No dysuria 12/13 Musculoskeletal stiffness 12/13/2014 Musculoskeletal arthralgia(s) 12/13/2014 Musculoskeletal muscle weakness 2014 Musculoskeletal shoulder pain 12/13/2014 Dermatologic No rash 12/13/2014 Dermatologic No scar 12/13/2014 Psychiatric No anxiety 12/13/2014 Psychiatric depression 12/13/2014 Eyes No blindness 12/13/2014 Eyes No vision change 12/13/2014 Constitutional No insomnia 09/05/2014 Constitutional night sweats 09/05/2014 Cardiovascular No chest pain/pressure 09/2014 Cardiovascular No dyspnea 09/05/2014 Cardiovascular No edema 09/05/2014 Respiratory No chest congestion 2014 Respiratory No cough 09/05/2014 Gastrointestinal No abdominal pain 2014 Gastrointestinal No constipation 2014 Gastrointestinal No diarrhea 09/05/2014 Gastrointestinal No gastroesophageal reflux 09/05/2014 Musculoskeletal neck pain 09/05/2014 Constitutional No recent illness 2014 Ears/Nose/Throat/Neck No postnasal drip 09/05/2014 Gastrointestinal No nausea 09/05/2014 Gastrointestinal No vomiting 09/05/2014 Genitourinary/Nephrology No dysuria 09/05 Musculoskeletal stiffness 09/05/2014 Musculoskeletal arthralgia(s) 09/05/2014 Musculoskeletal muscle weakness 2014 Musculoskeletal shoulder pain 09/05/2014 Dermatologic No rash 09/05/2014 Dermatologic No scar 09/05/2014 Psychiatric No anxiety 09/05/2014 Psychiatric depression 09/05/2014 Constitutional No recent illness 2014 Constitutional No insomnia 08/22/2014 Ears/Nose/Throat/Neck No postnasal drip 08/22/2014 Cardiovascular No chest pain/pressure Cardiovascular No dyspnea 08/22/2014 Cardiovascular No edema 08/22/2014 Respiratory No chest congestion 2014 Respiratory No cough 08/22/2014 Gastrointestinal No abdominal pain 2014 Gastrointestinal No constipation 2014 Gastrointestinal No diarrhea 08/22/2014 Gastrointestinal No nausea 08/22/2014 Gastrointestinal No vomiting 08/22/2014 Genitourinary/Nephrology No dysuria 08/22 Musculoskeletal stiffness 08/22/2014 Musculoskeletal arthralgia(s) 08/22/2014 Musculoskeletal muscle weakness 2014 Musculoskeletal shoulder pain 08/22/2014 Dermatologic No rash 08/22/2014 Dermatologic No scar 08/22/2014 Psychiatric No anxiety 08/22/2014 Psychiatric depression 08/22/2014 Constitutional No recent illness 2014 Constitutional No insomnia 05/30/2014 Ears/Nose/Throat/Neck No postnasal drip 05/30/2014 Cardiovascular No chest pain/pressure Cardiovascular No dyspnea 05/30/2014 Cardiovascular No edema 05/30/2014 Respiratory No cough 05/30/2014 Respiratory No chest congestion 2014 Gastrointestinal No vomiting 05/30/2014 Gastrointestinal No nausea 05/30/2014 Gastrointestinal No diarrhea 05/30/2014 Gastrointestinal No constipation 2014 Gastrointestinal No abdominal pain 2014 Genitourinary/Nephrology No dysuria 05/30 Musculoskeletal shoulder pain 05/30/2014 Psychiatric No anxiety 05/30/2014 Psychiatric depression 05/30/2014 Dermatologic No rash 05/30/2014 Dermatologic No scar 05/30/2014 Musculoskeletal stiffness 05/30/2014 Musculoskeletal arthralgia(s) 05/30/2014 Musculoskeletal muscle weakness 2014 Constitutional No insomnia 03/02/2014 Cardiovascular No chest pain/pressure Cardiovascular No dyspnea 03/02/2014 Cardiovascular edema 03/02/2014 Gastrointestinal No constipation 2013 Gastrointestinal No diarrhea 03/02/2014 Constitutional No anorexia 03/02/2014 Constitutional No chills 03/02/2014 Constitutional No fever 03/02/2014 Eyes No vision change 03/02/2014 Ears/Nose/Throat/Neck No dizziness 2013 Respiratory No wheezing 03/02/2014 Gastrointestinal No nausea 03/02/2014 Gastrointestinal No vomiting 03/02/2014 Genitourinary/Nephrology No urinary urgency 03/02/2014 Genitourinary/Nephrology No urinary frequency 03/02/2014 Musculoskeletal No stiffness 03/02/2014 Musculoskeletal No arthralgia(s) 2013 Neurologic No dizziness 03/02/2014 Psychiatric No anxiety 03/02/2014 Constitutional No anorexia 11/15/2013 Constitutional No chills 11/15/2013 Constitutional No fatigue 11/15/2013 Constitutional No fever 11/15/2013 Eyes No vision change 11/15/2013 Ears/Nose/Throat/Neck No dizziness 2013 Respiratory No wheezing 11/15/2013 Gastrointestinal No nausea 11/15/2013 Gastrointestinal No vomiting 11/15/2013 Genitourinary/Nephrology No urinary urgency 11/15/2013 Genitourinary/Nephrology No urinary frequency 11/15/2013 Musculoskeletal No stiffness 11/15/2013 Musculoskeletal No arthralgia(s) 2013 Neurologic No dizziness 11/15/2013 Psychiatric No anxiety 11/15/2013 Constitutional recent illness 09/13/2013 Constitutional No anorexia 09/13/2013 Constitutional No chills 09/13/2013 Constitutional No fatigue 09/13/2013 Constitutional No fever 09/13/2013 Eyes No vision change 09/13/2013 Ears/Nose/Throat/Neck No dizziness 2013 Respiratory No wheezing 09/13/2013 Gastrointestinal abdominal pain 2013 Gastrointestinal No nausea 09/13/2013 Gastrointestinal No vomiting 09/13/2013 Musculoskeletal stiffness 09/13/2013 Musculoskeletal No arthralgia(s) 2013 Neurologic No dizziness 09/13/2013 Psychiatric No anxiety 09/13/2013 Musculoskeletal back pain 09/13/2013 Constitutional No anorexia 08/31/2013 Constitutional No chills 08/31/2013 Constitutional No fatigue 08/31/2013 Constitutional No fever 08/31/2013 Eyes No vision change 08/31/2013 Ears/Nose/Throat/Neck No dizziness 2013 Respiratory No wheezing 08/31/2013 Gastrointestinal No nausea 08/31/2013 Gastrointestinal No vomiting 08/31/2013 Musculoskeletal No stiffness 08/31/2013 Musculoskeletal No arthralgia(s) 2013 Neurologic No dizziness 08/31/2013 Psychiatric No anxiety 08/31/2013 Constitutional recent illness 08/31/2013 Gastrointestinal abdominal pain 2013 Constitutional No recent illness 2013 Constitutional No chills 06/29/2013 Constitutional No fatigue 06/29/2013 Constitutional No fever 06/29/2013 Constitutional No insomnia 06/29/2013 Constitutional No malaise 06/29/2013 Constitutional No anorexia 06/15/2013 Constitutional No chills 06/15/2013 Constitutional No fatigue 06/15/2013 Constitutional No fever 06/15/2013 Eyes No vision change 06/15/2013 Ears/Nose/Throat/Neck No dizziness 2013 Respiratory No wheezing 06/15/2013 Gastrointestinal No nausea 06/15/2013 Gastrointestinal No vomiting 06/15/2013 Genitourinary/Nephrology No urinary urgency 06/15/2013 Genitourinary/Nephrology No urinary frequency 06/15/2013 Musculoskeletal No stiffness 06/15/2013 Musculoskeletal No arthralgia(s) 2013 Neurologic No dizziness 06/15/2013 Psychiatric No anxiety 06/15/2013 Constitutional No anorexia 05/25/2013 Constitutional No chills 05/25/2013 Constitutional No fatigue 05/25/2013 Constitutional No fever 05/25/2013 Eyes No vision change 05/25/2013 Ears/Nose/Throat/Neck No dizziness 2013 Respiratory No wheezing 05/25/2013 Gastrointestinal No nausea 05/25/2013 Gastrointestinal No vomiting 05/25/2013 Genitourinary/Nephrology No urinary urgency 05/25/2013 Genitourinary/Nephrology No urinary frequency 05/25/2013 Musculoskeletal No stiffness 05/25/2013 Musculoskeletal No arthralgia(s) 2013 Neurologic No dizziness 05/25/2013 Psychiatric No anxiety 05/25/2013 Psychiatric depression 05/25/2013 Constitutional fatigue 03/03/2013 Constitutional malaise 03/03/2013 Cardiovascular fatigue 03/03/2013 Cardiovascular hypertension 03/03/2013 Psychiatric depression 03/03/2013 Constitutional No anorexia 03/03/2013 Constitutional No chills 03/03/2013 Constitutional No fever 03/03/2013 Eyes No vision change 03/03/2013 Cardiovascular No chest pain/pressure Cardiovascular No edema 03/03/2013 Cardiovascular No near-syncope/dizziness 03/03/2013 Respiratory No wheezing 03/03/2013 Gastrointestinal No nausea 03/03/2013 Gastrointestinal No vomiting 03/03/2013 Genitourinary/Nephrology No urinary urgency 03/03/2013 Genitourinary/Nephrology No urinary frequency 03/03/2013 Neurologic No dizziness 03/03/2013 Psychiatric No anxiety 03/03/2013 Constitutional No anorexia 02/16/2013 Constitutional No chills 02/16/2013 Constitutional fatigue 02/16/2013 Constitutional No fever 02/16/2013 Constitutional malaise 02/16/2013 Eyes No vision change 02/16/2013 Cardiovascular No chest pain/pressure Cardiovascular No edema 02/16/2013 Cardiovascular fatigue 02/16/2013 Cardiovascular hypertension 02/16/2013 Cardiovascular No near-syncope/dizziness 02/16/2013 Respiratory No wheezing 02/16/2013 Gastrointestinal No nausea 02/16/2013 Gastrointestinal No vomiting 02/16/2013 Genitourinary/Nephrology No urinary urgency 02/16/2013 Genitourinary/Nephrology No urinary frequency 02/16/2013 Neurologic No dizziness 02/16/2013 Neurologic headache 02/16/2013 Psychiatric No anxiety 02/16/2013 Psychiatric depression 02/16/2013 Constitutional No anorexia 02/02/2013 Constitutional No chills 02/02/2013 Constitutional fatigue 02/02/2013 Constitutional No fever 02/02/2013 Constitutional malaise 02/02/2013 Eyes No vision change 02/02/2013 Ears/Nose/Throat/Neck No dizziness 2012 Cardiovascular No chest pain/pressure 06/2012 Cardiovascular No edema 02/02/2013 Cardiovascular fatigue 02/02/2013 Cardiovascular hypertension 02/02/2013 Cardiovascular No near-syncope/dizziness 02/02/2013 Respiratory No wheezing 02/02/2013 Gastrointestinal No nausea 02/02/2013 Gastrointestinal No vomiting 02/02/2013 Genitourinary/Nephrology No urinary urgency 02/02/2013 Genitourinary/Nephrology No urinary frequency 02/02/2013 Neurologic No dizziness 02/02/2013 Neurologic headache 02/02/2013 Psychiatric No anxiety 02/02/2013 Psychiatric depression 02/02/2013 Constitutional No anorexia 10/07/2012 Constitutional No chills 10/07/2012 Constitutional fatigue 10/07/2012 Constitutional No fever 10/07/2012 Eyes No vision change 10/07/2012 Ears/Nose/Throat/Neck No dizziness 2012 Respiratory No wheezing 10/07/2012 Gastrointestinal No nausea 10/07/2012 Gastrointestinal No vomiting 10/07/2012 Genitourinary/Nephrology No urinary urgency 10/07/2012 Genitourinary/Nephrology No urinary frequency 10/07/2012 Neurologic No dizziness 10/07/2012 Neurologic headache 10/07/2012 Psychiatric No anxiety 10/07/2012 Psychiatric depression 10/07/2012 Constitutional malaise 10/07/2012 Cardiovascular No chest pain/pressure 10/2012 Cardiovascular No edema 10/07/2012 Cardiovascular fatigue 10/07/2012 Cardiovascular hypertension 10/07/2012 Cardiovascular No near-syncope/dizziness 10/07/2012 Constitutional No anorexia 08/18/2012 Constitutional No chills 08/18/2012 Constitutional No fatigue 08/18/2012 Constitutional No fever 08/18/2012 Eyes No vision change 08/18/2012 Ears/Nose/Throat/Neck No dizziness 2012 Respiratory No wheezing 08/18/2012 Gastrointestinal No nausea 08/18/2012 Gastrointestinal No vomiting 08/18/2012 Genitourinary/Nephrology No urinary urgency 08/18/2012 Genitourinary/Nephrology No urinary frequency 08/18/2012 Musculoskeletal No stiffness 08/18/2012 Musculoskeletal No arthralgia(s) 2012 Neurologic No dizziness 08/18/2012 Psychiatric No anxiety 08/18/2012 Psychiatric depression 08/18/2012 Constitutional No anorexia 07/14/2012 Constitutional No chills 07/14/2012 Constitutional No fatigue 07/14/2012 Constitutional No fever 07/14/2012 Eyes No vision change 07/14/2012 Ears/Nose/Throat/Neck No dizziness 2012 Respiratory No wheezing 07/14/2012 Gastrointestinal No nausea 07/14/2012 Gastrointestinal No vomiting 07/14/2012 Genitourinary/Nephrology No urinary urgency 07/14/2012 Genitourinary/Nephrology No urinary frequency 07/14/2012 Musculoskeletal No stiffness 07/14/2012 Musculoskeletal No arthralgia(s) 2012 Neurologic No dizziness 07/14/2012 Neurologic headache 07/14/2012 Psychiatric No anxiety 07/14/2012 Psychiatric depression 07/14/2012 Gastrointestinal No nausea 06/23/2012 Gastrointestinal No vomiting 06/23/2012 Genitourinary/Nephrology No urinary urgency 06/23/2012 Genitourinary/Nephrology No urinary frequency 06/23/2012 Musculoskeletal No stiffness 06/23/2012 Musculoskeletal No arthralgia(s) 2012 Neurologic No dizziness 06/23/2012 Neurologic headache 06/23/2012 Psychiatric No anxiety 06/23/2012 Psychiatric depression 06/23/2012 Constitutional No anorexia 06/23/2012 Constitutional No chills 06/23/2012 Constitutional No fatigue 06/23/2012 Constitutional No fever 06/23/2012 Eyes No vision change 06/23/2012 Ears/Nose/Throat/Neck No dizziness 2012 Ears/Nose/Throat/Neck headache 2012 Cardiovascular No chest pain/pressure Cardiovascular No palpitations 2012 Respiratory No wheezing 06/23/2012 Constitutional No anorexia 02/19/2012 Constitutional No chills 02/19/2012 Constitutional No fatigue 02/19/2012 Constitutional No fever 02/19/2012 Eyes No vision change 02/19/2012 Ears/Nose/Throat/Neck No dizziness 2011 Ears/Nose/Throat/Neck headache 2011 Cardiovascular No chest pain/pressure Cardiovascular No palpitations 2011 Respiratory No wheezing 02/19/2012 Gastrointestinal No nausea 02/19/2012 Gastrointestinal No vomiting 02/19/2012 Genitourinary/Nephrology No urinary urgency 02/19/2012 Genitourinary/Nephrology No urinary frequency 02/19/2012 Musculoskeletal No stiffness 02/19/2012 Musculoskeletal No arthralgia(s) 2011 Neurologic No dizziness 02/19/2012 Neurologic headache 02/19/2012 Psychiatric No anxiety 02/19/2012 Psychiatric depression 02/19/2012 Constitutional No anorexia 08/05/2011 Constitutional No chills 08/05/2011 Constitutional No fatigue 08/05/2011 Constitutional No fever 08/05/2011 Ears/Nose/Throat/Neck No dizziness 2011 Ears/Nose/Throat/Neck headache 2011 Cardiovascular No chest pain/pressure 07/2011 Cardiovascular No palpitations 2011 Respiratory No wheezing 08/05/2011 Gastrointestinal No nausea 08/05/2011 Gastrointestinal No vomiting 08/05/2011 Genitourinary/Nephrology No urinary urgency 08/05/2011 Genitourinary/Nephrology No urinary frequency 08/05/2011 Neurologic No dizziness 08/05/2011 Neurologic headache 08/05/2011 Psychiatric No anxiety 08/05/2011 Psychiatric depression 08/05/2011 Constitutional No anorexia 07/07/2011 Constitutional No chills 07/07/2011 Constitutional No fatigue 07/07/2011 Constitutional No fever 07/07/2011 Ears/Nose/Throat/Neck No dizziness 2011 Ears/Nose/Throat/Neck headache 2011 Cardiovascular No chest pain/pressure 09/2011 Cardiovascular No palpitations 2011 Respiratory No wheezing 07/07/2011 Gastrointestinal No nausea 07/07/2011 Gastrointestinal No vomiting 07/07/2011 Genitourinary/Nephrology No urinary urgency 07/07/2011 Genitourinary/Nephrology No urinary frequency 07/07/2011 Neurologic No dizziness 07/07/2011 Neurologic headache 07/07/2011 Psychiatric No anxiety 07/07/2011 Psychiatric depression 07/07/2011 Constitutional No recent illness 2011 Constitutional No fatigue 06/16/2011 Constitutional No fever 06/16/2011 Constitutional No insomnia 06/16/2011 Constitutional No diaphoresis 06/16/2011 Eyes No eye discharge 06/16/2011 Eyes No eye erythema 06/16/2011 Ears/Nose/Throat/Neck No dizziness 2011 Ears/Nose/Throat/Neck No headache 2011 Ears/Nose/Throat/Neck No nasal allergies 06/16/2011 Ears/Nose/Throat/Neck No nasal discharge 06/16/2011 Ears/Nose/Throat/Neck sore throat 2011 Ears/Nose/Throat/Neck No sinus congestion 06/16/2011 Cardiovascular No chest pain/pressure Respiratory No productive sputum 2011 Respiratory No chest congestion 2011 Respiratory No cough 06/16/2011 Gastrointestinal No abdominal pain 2011 Gastrointestinal No constipation 2011 Gastrointestinal No diarrhea 06/16/2011 Gastrointestinal No nausea 06/16/2011 Gastrointestinal No vomiting 06/16/2011 Genitourinary/Nephrology No dysuria 06/16 Musculoskeletal swelling 06/16/2011 Musculoskeletal stiffness 06/16/2011 Musculoskeletal joint complaint 2011 Musculoskeletal No neck pain 06/16/2011 Musculoskeletal back pain 06/16/2011 Dermatologic No rash 06/16/2011 Neurologic No dizziness 06/16/2011 Neurologic headache 02/17/2011 Psychiatric No anxiety 02/17/2011 Psychiatric depression 02/17/2011 Cardiovascular No chest pain/pressure Cardiovascular No palpitations 2010 Gastrointestinal No nausea 02/17/2011 Gastrointestinal No vomiting 02/17/2011 Respiratory No wheezing 02/17/2011 Constitutional No anorexia 02/17/2011 Constitutional No chills 02/17/2011 Constitutional No fatigue 02/17/2011 Constitutional No fever 02/17/2011 Eyes No vision change 02/17/2011 Ears/Nose/Throat/Neck No dizziness 2010 Ears/Nose/Throat/Neck headache 2010 Genitourinary/Nephrology No urinary urgency 02/17/2011 Genitourinary/Nephrology No urinary frequency 02/17/2011 Musculoskeletal No arthralgia(s) 2010 Musculoskeletal No stiffness 02/17/2011 Neurologic No dizziness 02/17/2011 Constitutional No malaise 01/08/2011 Eyes No eye discharge 01/08/2011 Eyes eye erythema 01/08/2011 Eyes No eye foreign body 01/08/2011 Eyes eye pain 01/08/2011 Eyes No eye trauma 01/08/2011 Eyes No eyelid edema 01/08/2011 Eyes No vision change 01/08/2011 Ears/Nose/Throat/Neck nasal allergies 11/2010 Ears/Nose/Throat/Neck No hoarseness 01/08 Ears/Nose/Throat/Neck No headache 2010 Ears/Nose/Throat/Neck No facial swelling 01/08/2011 Ears/Nose/Throat/Neck No dizziness 2010 Ears/Nose/Throat/Neck No sore throat 11/2010 Ears/Nose/Throat/Neck No sinus congestion 01/08/2011 Constitutional No chills 01/08/2011 Constitutional No fatigue 01/08/2011 Constitutional No fever 01/08/2011 Eyes No blindness 01/08/2011 Cardiovascular No chest pain/pressure 11/2010 Cardiovascular No palpitations 2010 Gastrointestinal No nausea 01/08/2011 Gastrointestinal No vomiting 01/08/2011 Neurologic No dizziness 01/08/2011 Physical Exam Exam Name System Name Item Name Status Result Effective Dates Notes Full Exam - General 1994 Constitutional general appearance Overall: well developed 05/05/2017 None Full Exam - General 1994 Constitutional general appearance Overall: in no acute distress 05/05/2017 None Full Exam - General 1994 Constitutional general appearance Overall: well nourished 05/05/2017 None Full Exam - General 1994 Eyes pupils and irises Overall: pupils equal, round, reactive to light and accomodation 05/05/2017 None Full Exam - General 1994 Ears/Nose/Throat otoscopic exam Overall: external auditory canals clear 05/05/2017 None Full Exam - General 1994 Ears/Nose/Throat otoscopic exam Overall: tympanic membranes clear 05/05/2017 None Full Exam - General 1994 Respiratory auscultation Overall: breath sounds clear bilaterally 05/05/2017 None Full Exam - General 1994 Respiratory respiratory effort/rhythm Overall: no retractions 05/05/2017 None Full Exam - General 1994 Respiratory respiratory effort/rhythm Overall: normal rate 05/05/2017 None Full Exam - General 1994 Cardiovascular auscultation of heart Overall: regular rate 05/05/2017 None Full Exam - General 1994 Cardiovascular auscultation of heart Overall: normal heart sounds 05/05/2017 None Full Exam - General 1994 Cardiovascular auscultation of heart Overall: no murmurs 05/05/2017 None Full Exam - General 1994 Musculoskeletal head and neck Overall: head atraumatic 05/05/2017 None Full Exam - General 1994 Psychiatric orientation/consciousness Overall: oriented to person, place and time 05/05/2017 None Full Exam - General 1994 Psychiatric mood and affect Overall: normal mood and affect 05/05/2017 None Full Exam - General 1994 Ears/Nose/Throat oral cavity/pharynx/larynx Oropharynx: erythema 05/05/2017 None Full Exam - General 1994 Constitutional general appearance Overall: well developed 04/21/2017 None Full Exam - General 1994 Constitutional general appearance Overall: in no acute distress 04/21/2017 None Full Exam - General 1994 Constitutional general appearance Overall: well nourished 04/21/2017 None Full Exam - General 1994 Eyes pupils and irises Overall: pupils equal, round, reactive to light and accomodation 04/21/2017 None Full Exam - General 1994 Ears/Nose/Throat otoscopic exam Overall: external auditory canals clear 04/21/2017 None Full Exam - General 1994 Ears/Nose/Throat otoscopic exam Overall: tympanic membranes clear 04/21/2017 None Full Exam - General 1994 Ears/Nose/Throat oral cavity/pharynx/larynx Overall: oral mucosa clear 04/21/2017 None Full Exam - General 1994 Respiratory auscultation Overall: breath sounds clear bilaterally 04/21/2017 None Full Exam - General 1994 Respiratory respiratory effort/rhythm Overall: no retractions 04/21/2017 None Full Exam - General 1994 Respiratory respiratory effort/rhythm Overall: normal rate 04/21/2017 None Full Exam - General 1994 Cardiovascular auscultation of heart Overall: regular rate 04/21/2017 None Full Exam - General 1994 Cardiovascular auscultation of heart Overall: normal heart sounds 04/21/2017 None Full Exam - General 1994 Cardiovascular auscultation of heart Overall: no murmurs 04/21/2017 None Full Exam - General 1994 Abdomen abdominal exam Overall: no tenderness 04/21/2017 None Full Exam - General 1994 Abdomen abdominal exam Overall: normal bowel sounds 04/21/2017 None Full Exam - General 1994 Musculoskeletal head and neck Overall: head atraumatic 04/21/2017 None Full Exam - General 1994 Neurologic cranial nerves Overall: crainial nerves 2 - 12 grossly intact 04/21/2017 None Full Exam - General 1994 Psychiatric orientation/consciousness Overall: oriented to person, place and time 04/21/2017 None Full Exam - General 1994 Psychiatric mood and affect Overall: normal mood and affect 04/21/2017 None Full Exam - General 1994 Constitutional general appearance Overall: well developed 03/31/2017 None Full Exam - General 1994 Constitutional general appearance Overall: in no acute distress 03/31/2017 None Full Exam - General 1994 Constitutional general appearance Overall: well nourished 03/31/2017 None Full Exam - General 1994 Eyes pupils and irises Overall: pupils equal, round, reactive to light and accomodation 03/31/2017 None Full Exam - General 1994 Ears/Nose/Throat otoscopic exam Overall: external auditory canals clear 03/31/2017 None Full Exam - General 1994 Ears/Nose/Throat otoscopic exam Overall: tympanic membranes clear 03/31/2017 None Full Exam - General 1994 Ears/Nose/Throat oral cavity/pharynx/larynx Overall: oral mucosa clear 03/31/2017 None Full Exam - General 1994 Respiratory auscultation Overall: breath sounds clear bilaterally 03/31/2017 None Full Exam - General 1994 Respiratory respiratory effort/rhythm Overall: no retractions 03/31/2017 None Full Exam - General 1994 Respiratory respiratory effort/rhythm Overall: normal rate 03/31/2017 None Full Exam - General 1994 Cardiovascular auscultation of heart Overall: regular rate 03/31/2017 None Full Exam - General 1994 Cardiovascular auscultation of heart Overall: normal heart sounds 03/31/2017 None Full Exam - General 1994 Cardiovascular auscultation of heart Overall: no murmurs 03/31/2017 None Full Exam - General 1994 Abdomen abdominal exam Overall: no tenderness 03/31/2017 None Full Exam - General 1994 Abdomen abdominal exam Overall: normal bowel sounds 03/31/2017 None Full Exam - General 1994 Musculoskeletal upper extremity Inspection - forearm: malalignment 03/31/2017 in pink cast Full Exam - General 1994 Musculoskeletal head and neck Overall: head atraumatic 03/31/2017 None Full Exam - General 1994 Integument inspection of skin Location: left arm 03/31/2017 skin tear Full Exam - General 1994 Neurologic cranial nerves Overall: crainial nerves 2 - 12 grossly intact 03/31/2017 None Full Exam - General 1994 Psychiatric orientation/consciousness Overall: oriented to person, place and time 03/31/2017 None Full Exam - General 1994 Psychiatric mood and affect Overall: normal mood and affect 03/31/2017 None Full Exam - General 1994 Constitutional general appearance Overall: well developed 03/02/2017 None Full Exam - General 1994 Constitutional general appearance Overall: in no acute distress 03/02/2017 None Full Exam - General 1994 Constitutional general appearance Overall: well nourished 03/02/2017 None Full Exam - General 1994 Eyes pupils and irises Overall: pupils equal, round, reactive to light and accomodation 03/02/2017 None Full Exam - General 1994 Ears/Nose/Throat otoscopic exam Overall: external auditory canals clear 03/02/2017 None Full Exam - General 1994 Ears/Nose/Throat otoscopic exam Overall: tympanic membranes clear 03/02/2017 None Full Exam - General 1994 Ears/Nose/Throat oral cavity/pharynx/larynx Overall: oral mucosa clear 03/02/2017 None Full Exam - General 1994 Respiratory auscultation Overall: breath sounds clear bilaterally 03/02/2017 None Full Exam - General 1994 Respiratory respiratory effort/rhythm Overall: no retractions 03/02/2017 None Full Exam - General 1994 Respiratory respiratory effort/rhythm Overall: normal rate 03/02/2017 None Full Exam - General 1994 Cardiovascular auscultation of heart Overall: regular rate 03/02/2017 None Full Exam - General 1994 Cardiovascular auscultation of heart Overall: normal heart sounds 03/02/2017 None Full Exam - General 1994 Cardiovascular auscultation of heart Overall: no murmurs 03/02/2017 None Full Exam - General 1994 Abdomen abdominal exam Overall: no tenderness 03/02/2017 None Full Exam - General 1994 Abdomen abdominal exam Overall: normal bowel sounds 03/02/2017 None Full Exam - General 1994 Musculoskeletal head and neck Overall: head atraumatic 03/02/2017 None Full Exam - General 1994 Neurologic cranial nerves Overall: crainial nerves 2 - 12 grossly intact 03/02/2017 None Full Exam - General 1994 Psychiatric orientation/consciousness Overall: oriented to person, place and time 03/02/2017 None Full Exam - General 1994 Psychiatric mood and affect Overall: normal mood and affect 03/02/2017 None Full Exam - General 1994 Integument inspection of skin Location: left arm 03/02/2017 skin tear Full Exam - General 1994 Musculoskeletal upper extremity Inspection - forearm: malalignment 03/02/2017 in pink cast Full Exam - General 1994 Constitutional general appearance Overall: well developed 12/16/2016 None Full Exam - General 1994 Constitutional general appearance Overall: in no acute distress 12/16/2016 None Full Exam - General 1994 Constitutional general appearance Overall: well nourished 12/16/2016 None Full Exam - General 1994 Eyes pupils and irises Overall: pupils equal, round, reactive to light and accomodation 12/16/2016 None Full Exam - General 1994 Ears/Nose/Throat otoscopic exam Overall: external auditory canals clear 12/16/2016 None Full Exam - General 1995 Ears/Nose/Throat otoscopic exam Overall: tympanic membranes clear 12/16/2016 None Full Exam - General 1994 Ears/Nose/Throat oral cavity/pharynx/larynx Overall: oral mucosa clear 12/16/2016 None Full Exam - General 1994 Respiratory auscultation Overall: breath sounds clear bilaterally 12/16/2016 None Full Exam - General 1994 Respiratory respiratory effort/rhythm Overall: no retractions 12/16/2016 None Full Exam - General 1994 Respiratory respiratory effort/rhythm Overall: normal rate 12/16/2016 None Full Exam - General 1994 Cardiovascular auscultation of heart Overall: regular rate 12/16/2016 None Full Exam - General 1994 Cardiovascular auscultation of heart Overall: normal heart sounds 12/16/2016 None Full Exam - General 1994 Cardiovascular auscultation of heart Overall: no murmurs 12/16/2016 None Full Exam - General 1994 Abdomen abdominal exam Overall: no tenderness 12/16/2016 None Full Exam - General 1994 Abdomen abdominal exam Overall: normal bowel sounds 12/16/2016 None Full Exam - General 1994 Musculoskeletal upper extremity Palpation - shoulder: acromioclavicular joint tenderness 12/16/2016 None Full Exam - General 1994 Musculoskeletal head and neck Overall: head atraumatic 12/16/2016 None Full Exam - General 1994 Musculoskeletal head and neck Cervical Spine: tender 12/16/2016 along left lateral neck to left upper shoulder - tender to toch with muscular trigger points identified along left lateral neck/shoulder Full Exam - General 1994 Neurologic cranial nerves Overall: crainial nerves 2 - 12 grossly intact 12/16/2016 None Full Exam - General 1994 Psychiatric orientation/consciousness Overall: oriented to person, place and time 12/16/2016 None Full Exam - General 1994 Psychiatric mood and affect Overall: normal mood and affect 12/16/2016 None Full Exam - General 1994 Constitutional general appearance Overall: well developed 11/18/2016 None Full Exam - General 1994 Constitutional general appearance Overall: in no acute distress 11/18/2016 None Full Exam - General 1994 Constitutional general appearance Overall: well nourished 11/18/2016 None Full Exam - General 1994 Eyes pupils and irises Overall: pupils equal, round, reactive to light and accomodation 11/18/2016 None Full Exam - General 1994 Ears/Nose/Throat otoscopic exam Overall: external auditory canals clear 11/18/2016 None Full Exam - General 1994 Ears/Nose/Throat otoscopic exam Overall: tympanic membranes clear 11/18/2016 None Full Exam - General 1994 Ears/Nose/Throat oral cavity/pharynx/larynx Overall: oral mucosa clear 11/18/2016 None Full Exam - General 1994 Respiratory auscultation Overall: breath sounds clear bilaterally 11/18/2016 None Full Exam - General 1994 Respiratory respiratory effort/rhythm Overall: no retractions 11/18/2016 None Full Exam - General 1994 Respiratory respiratory effort/rhythm Overall: normal rate 11/18/2016 None Full Exam - General 1994 Cardiovascular auscultation of heart Overall: regular rate 11/18/2016 None Full Exam - General 1994 Cardiovascular auscultation of heart Overall: normal heart sounds 11/18/2016 None Full Exam - General 1994 Cardiovascular auscultation of heart Overall: no murmurs 11/18/2016 None Full Exam - General 1994 Abdomen abdominal exam Overall: no tenderness 11/18/2016 None Full Exam - General 1994 Abdomen abdominal exam Overall: normal bowel sounds 11/18/2016 None Full Exam - General 1994 Musculoskeletal upper extremity Palpation - shoulder: acromioclavicular joint tenderness 11/18/2016 None Full Exam - General 1994 Musculoskeletal head and neck Overall: head atraumatic 11/18/2016 None Full Exam - General 1994 Musculoskeletal head and neck Cervical Spine: tender 11/18/2016 along left lateral neck to left upper shoulder - tender to toch with muscular trigger points identified along left lateral neck/shoulder Full Exam - General 1994 Neurologic cranial nerves Overall: crainial nerves 2 - 12 grossly intact 11/18/2016 None Full Exam - General 1994 Psychiatric orientation/consciousness Overall: oriented to person, place and time 11/18/2016 None Full Exam - General 1994 Psychiatric mood and affect Overall: normal mood and affect 11/18/2016 None Full Exam - General 1994 Constitutional general appearance Overall: well developed 09/22/2016 None Full Exam - General 1994 Constitutional general appearance Overall: in no acute distress 09/22/2016 None Full Exam - General 1994 Constitutional general appearance Overall: well nourished 09/22/2016 None Full Exam - General 1994 Ears/Nose/Throat oral cavity/pharynx/larynx Overall: oral mucosa clear 09/22/2016 None Full Exam - General 1994 Respiratory auscultation Overall: breath sounds clear bilaterally 09/22/2016 None Full Exam - General 1994 Respiratory respiratory effort/rhythm Overall: no retractions 09/22/2016 None Full Exam - General 1994 Respiratory respiratory effort/rhythm Overall: normal rate 09/22/2016 None Full Exam - General 1994 Cardiovascular auscultation of heart Overall: regular rate 09/22/2016 None Full Exam - General 1994 Musculoskeletal head and neck Overall: head atraumatic 09/22/2016 None Full Exam - General 1994 Neurologic cranial nerves Overall: crainial nerves 2 - 12 grossly intact 09/22/2016 None Full Exam - General 1994 Psychiatric orientation/consciousness Overall: oriented to person, place and time 09/22/2016 None Full Exam - General 1994 Psychiatric mood and affect Overall: normal mood and affect 09/22/2016 None Full Exam - General 1994 Eyes conjunctiva /eyelids Overall: conjunctiva clear 09/22/2016 None Full Exam - General 1994 Eyes conjunctiva /eyelids Overall: eyelids normal 09/22/2016 None Full Exam - General 1994 Ears/Nose/Throat lips/teeth/gingiva Overall: benign lips 09/22/2016 None Full Exam - General 1994 Psychiatric appearance Overall: well-groomed, good eye contact 09/22/2016 None Full Exam - General 1994 Cardiovascular extremities Edema present: pitting 09/22/2016 None Full Exam - General 1994 Cardiovascular extremities Edema present: severity 1+ - 4 +: 1-2+ 09/22/2016 None Full Exam - General 1994 Cardiovascular extremities Edema present: bilateral 09/22/2016 left greater than right Full Exam - General 1994 Cardiovascular extremities Edema present: to leg 09/22/2016 None Full Exam - General 1994 Constitutional general appearance Overall: well developed 07/29/2016 None Full Exam - General 1994 Constitutional general appearance Overall: in no acute distress 07/29/2016 None Full Exam - General 1994 Constitutional general appearance Overall: well nourished 07/29/2016 None Full Exam - General 1994 Eyes pupils and irises Overall: pupils equal, round, reactive to light and accomodation 07/29/2016 None Full Exam - General 1994 Ears/Nose/Throat otoscopic exam Overall: external auditory canals clear 07/29/2016 None Full Exam - General 1994 Ears/Nose/Throat otoscopic exam Overall: tympanic membranes clear 07/29/2016 None Full Exam - General 1994 Ears/Nose/Throat oral cavity/pharynx/larynx Overall: oral mucosa clear 07/29/2016 None Full Exam - General 1994 Respiratory auscultation Overall: breath sounds clear bilaterally 07/29/2016 None Full Exam - General 1994 Respiratory respiratory effort/rhythm Overall: no retractions 07/29/2016 None Full Exam - General 1994 Respiratory respiratory effort/rhythm Overall: normal rate 07/29/2016 None Full Exam - General 1994 Cardiovascular auscultation of heart Overall: regular rate 07/29/2016 None Full Exam - General 1994 Cardiovascular auscultation of heart Overall: normal heart sounds 07/29/2016 None Full Exam - General 1994 Cardiovascular auscultation of heart Overall: no murmurs 07/29/2016 None Full Exam - General 1994 Abdomen abdominal exam Overall: no tenderness 07/29/2016 None Full Exam - General 1994 Abdomen abdominal exam Overall: normal bowel sounds 07/29/2016 None Full Exam - General 1994 Musculoskeletal upper extremity Palpation - shoulder: acromioclavicular joint tenderness 07/29/2016 None Full Exam - General 1994 Musculoskeletal head and neck Overall: head atraumatic 07/29/2016 None Full Exam - General 1994 Musculoskeletal head and neck Cervical Spine: tender 07/29/2016 along left lateral neck to left upper shoulder - tender to toch with muscular trigger points identified along left lateral neck/shoulder Full Exam - General 1994 Neurologic cranial nerves Overall: crainial nerves 2 - 12 grossly intact 07/29/2016 None Full Exam - General 1994 Psychiatric orientation/consciousness Overall: oriented to person, place and time 07/29/2016 None Full Exam - General 1994 Psychiatric mood and affect Overall: normal mood and affect 07/29/2016 None Full Exam - General 1994 Constitutional general appearance Overall: well developed 06/03/2016 None Full Exam - General 1994 Constitutional general appearance Overall: in no acute distress 06/03/2016 None Full Exam - General 1994 Constitutional general appearance Overall: well nourished 06/03/2016 None Full Exam - General 1994 Eyes pupils and irises Overall: pupils equal, round, reactive to light and accomodation 06/03/2016 None Full Exam - General 1994 Ears/Nose/Throat otoscopic exam Overall: external auditory canals clear 06/03/2016 None Full Exam - General 1994 Ears/Nose/Throat otoscopic exam Overall: tympanic membranes clear 06/03/2016 None Full Exam - General 1994 Ears/Nose/Throat oral cavity/pharynx/larynx Overall: oral mucosa clear 06/03/2016 None Full Exam - General 1994 Respiratory auscultation Overall: breath sounds clear bilaterally 06/03/2016 None Full Exam - General 1994 Respiratory respiratory effort/rhythm Overall: no retractions 06/03/2016 None Full Exam - General 1994 Respiratory respiratory effort/rhythm Overall: normal rate 06/03/2016 None Full Exam - General 1994 Cardiovascular auscultation of heart Overall: regular rate 06/03/2016 None Full Exam - General 1994 Cardiovascular auscultation of heart Overall: normal heart sounds 06/03/2016 None Full Exam - General 1994 Cardiovascular auscultation of heart Overall: no murmurs 06/03/2016 None Full Exam - General 1994 Abdomen abdominal exam Overall: no tenderness 06/03/2016 None Full Exam - General 1994 Abdomen abdominal exam Overall: normal bowel sounds 06/03/2016 None Full Exam - General 1994 Musculoskeletal head and neck Overall: head atraumatic 06/03/2016 None Full Exam - General 1994 Musculoskeletal head and neck Cervical Spine: tender 06/03/2016 along left lateral neck to left upper shoulder - tender to toch with muscular trigger points identified x 3 along left lateral neck/shoulder Full Exam - General 1994 Neurologic cranial nerves Overall: crainial nerves 2 - 12 grossly intact 06/03/2016 None Full Exam - General 1994 Psychiatric orientation/consciousness Overall: oriented to person, place and time 06/03/2016 None Full Exam - General 1994 Psychiatric mood and affect Overall: normal mood and affect 06/03/2016 None Full Exam - General 1994 Constitutional general appearance Overall: well developed 02/13/2016 None Full Exam - General 1994 Constitutional general appearance Overall: in no acute distress 02/13/2016 None Full Exam - General 1994 Constitutional general appearance Overall: well nourished 02/13/2016 None Full Exam - General 1994 Eyes pupils and irises Overall: pupils equal, round, reactive to light and accomodation 02/13/2016 None Full Exam - General 1994 Ears/Nose/Throat otoscopic exam Overall: external auditory canals clear 02/13/2016 None Full Exam - General 1994 Ears/Nose/Throat otoscopic exam Overall: tympanic membranes clear 02/13/2016 None Full Exam - General 1994 Ears/Nose/Throat oral cavity/pharynx/larynx Overall: oral mucosa clear 02/13/2016 None Full Exam - General 1994 Respiratory auscultation Overall: breath sounds clear bilaterally 02/13/2016 None Full Exam - General 1994 Respiratory respiratory effort/rhythm Overall: no retractions 02/13/2016 None Full Exam - General 1994 Respiratory respiratory effort/rhythm Overall: normal rate 02/13/2016 None Full Exam - General 1994 Cardiovascular auscultation of heart Overall: regular rate 02/13/2016 None Full Exam - General 1994 Cardiovascular auscultation of heart Overall: normal heart sounds 02/13/2016 None Full Exam - General 1994 Cardiovascular auscultation of heart Overall: no murmurs 02/13/2016 None Full Exam - General 1994 Abdomen abdominal exam Overall: no tenderness 02/13/2016 None Full Exam - General 1994 Abdomen abdominal exam Overall: normal bowel sounds 02/13/2016 None Full Exam - General 1994 Musculoskeletal upper extremity Palpation - shoulder: acromioclavicular joint tenderness 02/13/2016 None Full Exam - General 1994 Musculoskeletal head and neck Overall: head atraumatic 02/13/2016 None Full Exam - General 1994 Musculoskeletal head and neck Cervical Spine: tender 02/13/2016 along left lateral neck to left upper shoulder - tender to toch with muscular trigger points identified along left lateral neck/shoulder Full Exam - General 1994 Neurologic cranial nerves Overall: crainial nerves 2 - 12 grossly intact 02/13/2016 None Full Exam - General 1994 Psychiatric orientation/consciousness Overall: oriented to person, place and time 02/13/2016 None Full Exam - General 1994 Psychiatric mood and affect Overall: normal mood and affect 02/13/2016 None Full Exam - General 1994 Constitutional general appearance Overall: well developed 10/17/2015 None Full Exam - General 1994 Constitutional general appearance Overall: in no acute distress 10/17/2015 None Full Exam - General 1994 Constitutional general appearance Overall: well nourished 10/17/2015 None Full Exam - General 1994 Eyes pupils and irises Overall: pupils equal, round, reactive to light and accomodation 10/17/2015 None Full Exam - General 1994 Ears/Nose/Throat otoscopic exam Overall: external auditory canals clear 10/17/2015 None Full Exam - General 1994 Ears/Nose/Throat otoscopic exam Overall: tympanic membranes clear 10/17/2015 None Full Exam - General 1994 Ears/Nose/Throat oral cavity/pharynx/larynx Overall: oral mucosa clear 10/17/2015 None Full Exam - General 1994 Respiratory auscultation Overall: breath sounds clear bilaterally 10/17/2015 None Full Exam - General 1994 Respiratory respiratory effort/rhythm Overall: no retractions 10/17/2015 None Full Exam - General 1994 Respiratory respiratory effort/rhythm Overall: normal rate 10/17/2015 None Full Exam - General 1994 Cardiovascular auscultation of heart Overall: regular rate 10/17/2015 None Full Exam - General 1994 Cardiovascular auscultation of heart Overall: normal heart sounds 10/17/2015 None Full Exam - General 1994 Cardiovascular auscultation of heart Overall: no murmurs 10/17/2015 None Full Exam - General 1994 Abdomen abdominal exam Overall: no tenderness 10/17/2015 None Full Exam - General 1994 Abdomen abdominal exam Overall: normal bowel sounds 10/17/2015 None Full Exam - General 1994 Musculoskeletal upper extremity Palpation - shoulder: acromioclavicular joint tenderness 10/17/2015 None Full Exam - General 1994 Musculoskeletal head and neck Overall: head atraumatic 10/17/2015 None Full Exam - General 1994 Musculoskeletal head and neck Cervical Spine: tender 10/17/2015 along left lateral neck to left upper shoulder - tender to toch with muscular trigger points identified along left lateral neck/shoulder Full Exam - General 1994 Neurologic cranial nerves Overall: crainial nerves 2 - 12 grossly intact 10/17/2015 None Full Exam - General 1994 Psychiatric orientation/consciousness Overall: oriented to person, place and time 10/17/2015 None Full Exam - General 1994 Psychiatric mood and affect Overall: normal mood and affect 10/17/2015 None Full Exam - General 1994 Constitutional general appearance Overall: well developed 07/11/2015 None Full Exam - General 1994 Constitutional general appearance Overall: in no acute distress 07/11/2015 None Full Exam - General 1994 Constitutional general appearance Overall: well nourished 07/11/2015 None Full Exam - General 1994 Eyes pupils and irises Overall: pupils equal, round, reactive to light and accomodation 07/11/2015 None Full Exam - General 1994 Ears/Nose/Throat otoscopic exam Overall: external auditory canals clear 07/11/2015 None Full Exam - General 1994 Ears/Nose/Throat otoscopic exam Overall: tympanic membranes clear 07/11/2015 None Full Exam - General 1994 Ears/Nose/Throat oral cavity/pharynx/larynx Overall: oral mucosa clear 07/11/2015 None Full Exam - General 1994 Respiratory auscultation Overall: breath sounds clear bilaterally 07/11/2015 None Full Exam - General 1994 Respiratory respiratory effort/rhythm Overall: no retractions 07/11/2015 None Full Exam - General 1994 Respiratory respiratory effort/rhythm Overall: normal rate 07/11/2015 None Full Exam - General 1994 Cardiovascular auscultation of heart Overall: regular rate 07/11/2015 None Full Exam - General 1994 Cardiovascular auscultation of heart Overall: normal heart sounds 07/11/2015 None Full Exam - General 1994 Cardiovascular auscultation of heart Overall: no murmurs 07/11/2015 None Full Exam - General 1994 Abdomen abdominal exam Overall: no tenderness 07/11/2015 None Full Exam - General 1994 Abdomen abdominal exam Overall: normal bowel sounds 07/11/2015 None Full Exam - General 1994 Musculoskeletal upper extremity Palpation - shoulder: acromioclavicular joint tenderness 07/11/2015 None Full Exam - General 1994 Musculoskeletal head and neck Overall: head atraumatic 07/11/2015 None Full Exam - General 1994 Musculoskeletal head and neck Cervical Spine: tender 07/11/2015 along left lateral neck to left upper shoulder - tender to toch with muscular trigger points identified along left lateral neck/shoulder Full Exam - General 1994 Neurologic cranial nerves Overall: crainial nerves 2 - 12 grossly intact 07/11/2015 None Full Exam - General 1994 Psychiatric orientation/consciousness Overall: oriented to person, place and time 07/11/2015 None Full Exam - General 1994 Psychiatric mood and affect Overall: normal mood and affect 07/11/2015 None Full Exam - General 1994 Constitutional general appearance Overall: well nourished 06/29/2015 None Full Exam - General 1994 Constitutional general appearance Overall: well developed 06/29/2015 None Full Exam - General 1994 Constitutional general appearance Overall: in no acute distress 06/29/2015 None Full Exam - General 1994 Eyes conjunctiva /eyelids Overall: conjunctiva clear 06/29/2015 None Full Exam - General 1994 Eyes conjunctiva /eyelids Overall: eyelids normal 06/29/2015 None Full Exam - General 1994 Eyes conjunctiva /eyelids Overall: cornea clear 06/29/2015 None Full Exam - General 1994 Eyes pupils and irises Overall: pupils equal, round, reactive to light and accomodation 06/29/2015 None Full Exam - General 1994 Ears/Nose/Throat otoscopic exam Tympanic membrane: effusion 06/29/2015 None Full Exam - General 1994 Ears/Nose/Throat otoscopic exam External auditory canal: minimal cerumen 06/29/2015 None Full Exam - General 1994 Ears/Nose/Throat lips/teeth/gingiva Overall: benign gingiva 06/29/2015 None Full Exam - General 1994 Ears/Nose/Throat lips/teeth/gingiva Overall: no masses 06/29/2015 None Full Exam - General 1994 Ears/Nose/Throat lips/teeth/gingiva Overall: normal dentition 06/29/2015 None Full Exam - General 1994 Ears/Nose/Throat lips/teeth/gingiva Overall: benign lips 06/29/2015 None Full Exam - General 1994 Ears/Nose/Throat oral cavity/pharynx/larynx Oropharynx: erythema 06/29/2015 MILD Full Exam - General 1994 Ears/Nose/Throat oral cavity/pharynx/larynx Overall: no masses 06/29/2015 None Full Exam - General 1994 Ears/Nose/Throat oral cavity/pharynx/larynx Overall: oral mucosa clear 06/29/2015 None Full Exam - General 1994 Ears/Nose/Throat internal nose Sinus tenderness: right maxillary 06/29/2015 None Full Exam - General 1994 Ears/Nose/Throat internal nose Sinus tenderness: right frontal 06/29/2015 None Full Exam - General 1994 Respiratory respiratory effort/rhythm Overall: normal rate 06/29/2015 None Full Exam - General 1994 Respiratory respiratory effort/rhythm Overall: no retractions 06/29/2015 None Full Exam - General 1994 Respiratory auscultation Overall: breath sounds clear bilaterally 06/29/2015 None Full Exam - General 1994 Cardiovascular auscultation of heart Overall: regular rate 06/29/2015 None Full Exam - General 1994 Cardiovascular auscultation of heart Overall: normal heart sounds 06/29/2015 None Full Exam - General 1994 Cardiovascular auscultation of heart Overall: no murmurs 06/29/2015 None Full Exam - General 1994 Cardiovascular extremities Overall: no clubbing 06/29/2015 None Full Exam - General 1994 Abdomen abdominal exam Overall: no tenderness 06/29/2015 None Full Exam - General 1994 Abdomen abdominal exam Overall: normal bowel sounds 06/29/2015 None Full Exam - General 1994 Musculoskeletal gait and station Overall: normal station 06/29/2015 None Full Exam - General 1994 Musculoskeletal gait and station Overall: normal gait 06/29/2015 None Full Exam - General 1994 Integument inspection of skin Overall: no rash, lesions 06/29/2015 None Full Exam - General 1994 Psychiatric orientation/consciousness Overall: oriented to person, place and time 06/29/2015 None Full Exam - General 1994 Psychiatric mood and affect Overall: normal mood and affect 06/29/2015 None Full Exam - General 1994 Psychiatric appearance Overall: well-groomed, good eye contact 06/29/2015 None Full Exam - General 1994 Constitutional general appearance Overall: well developed 04/02/2015 None Full Exam - General 1994 Constitutional general appearance Overall: in no acute distress 04/02/2015 None Full Exam - General 1994 Constitutional general appearance Overall: well nourished 04/02/2015 None Full Exam - General 1994 Eyes pupils and irises Overall: pupils equal, round, reactive to light and accomodation 04/02/2015 None Full Exam - General 1994 Ears/Nose/Throat otoscopic exam Overall: external auditory canals clear 04/02/2015 None Full Exam - General 1994 Ears/Nose/Throat otoscopic exam Overall: tympanic membranes clear 04/02/2015 None Full Exam - General 1994 Ears/Nose/Throat oral cavity/pharynx/larynx Overall: oral mucosa clear 04/02/2015 None Full Exam - General 1994 Respiratory auscultation Overall: breath sounds clear bilaterally 04/02/2015 None Full Exam - General 1994 Respiratory respiratory effort/rhythm Overall: no retractions 04/02/2015 None Full Exam - General 1994 Respiratory respiratory effort/rhythm Overall: normal rate 04/02/2015 None Full Exam - General 1994 Cardiovascular auscultation of heart Overall: regular rate 04/02/2015 None Full Exam - General 1994 Cardiovascular auscultation of heart Overall: normal heart sounds 04/02/2015 None Full Exam - General 1994 Cardiovascular auscultation of heart Overall: no murmurs 04/02/2015 None Full Exam - General 1994 Abdomen abdominal exam Overall: normal bowel sounds 04/02/2015 None Full Exam - General 1994 Musculoskeletal head and neck Overall: head atraumatic 04/02/2015 None Full Exam - General 1994 Neurologic cranial nerves Overall: crainial nerves 2 - 12 grossly intact 04/02/2015 None Full Exam - General 1994 Psychiatric orientation/consciousness Overall: oriented to person, place and time 04/02/2015 None Full Exam - General 1994 Psychiatric mood and affect Overall: normal mood and affect 04/02/2015 None Full Exam - General 1994 Musculoskeletal lower extremity Inspection - knee: swelling 04/02/2015 and tenderness in the popliteal region, no warmth Full Exam - General 1994 Musculoskeletal lower extremity Inspection - lower leg: swelling 04/02/2015 None Full Exam - General 1994 Musculoskeletal lower extremity Palpation - thigh: normal on palpation 04/02/2015 None Full Exam - General 1994 Constitutional general appearance Overall: well developed 03/22/2015 None Full Exam - General 1994 Constitutional general appearance Overall: in no acute distress 03/22/2015 None Full Exam - General 1994 Constitutional general appearance Overall: well nourished 03/22/2015 None Full Exam - General 1994 Eyes pupils and irises Overall: pupils equal, round, reactive to light and accomodation 03/22/2015 None Full Exam - General 1994 Ears/Nose/Throat otoscopic exam Overall: external auditory canals clear 03/22/2015 None Full Exam - General 1994 Ears/Nose/Throat otoscopic exam Overall: tympanic membranes clear 03/22/2015 None Full Exam - General 1994 Ears/Nose/Throat oral cavity/pharynx/larynx Overall: oral mucosa clear 03/22/2015 None Full Exam - General 1994 Respiratory auscultation Overall: breath sounds clear bilaterally 03/22/2015 None Full Exam - General 1994 Respiratory respiratory effort/rhythm Overall: no retractions 03/22/2015 None Full Exam - General 1994 Respiratory respiratory effort/rhythm Overall: normal rate 03/22/2015 None Full Exam - General 1994 Cardiovascular auscultation of heart Overall: regular rate 03/22/2015 None Full Exam - General 1994 Cardiovascular auscultation of heart Overall: normal heart sounds 03/22/2015 None Full Exam - General 1994 Cardiovascular auscultation of heart Overall: no murmurs 03/22/2015 None Full Exam - General 1994 Abdomen abdominal exam Overall: no tenderness 03/22/2015 None Full Exam - General 1994 Abdomen abdominal exam Overall: normal bowel sounds 03/22/2015 None Full Exam - General 1994 Musculoskeletal head and neck Overall: head atraumatic 03/22/2015 None Full Exam - General 1994 Musculoskeletal head and neck Cervical Spine: tender 03/22/2015 along left lateral neck to left upper shoulder - tender to toch with muscular trigger points identified x 3 along left lateral neck/shoulder Full Exam - General 1994 Neurologic cranial nerves Overall: crainial nerves 2 - 12 grossly intact 03/22/2015 None Full Exam - General 1994 Psychiatric orientation/consciousness Overall: oriented to person, place and time 03/22/2015 None Full Exam - General 1994 Psychiatric mood and affect Overall: normal mood and affect 03/22/2015 None Full Exam - General 1994 Constitutional general appearance Overall: well developed 02/22/2015 None Full Exam - General 1994 Constitutional general appearance Overall: in no acute distress 02/22/2015 None Full Exam - General 1994 Constitutional general appearance Overall: well nourished 02/22/2015 None Full Exam - General 1994 Eyes pupils and irises Overall: pupils equal, round, reactive to light and accomodation 02/22/2015 None Full Exam - General 1994 Ears/Nose/Throat otoscopic exam Overall: external auditory canals clear 02/22/2015 None Full Exam - General 1994 Ears/Nose/Throat otoscopic exam Overall: tympanic membranes clear 02/22/2015 None Full Exam - General 1994 Ears/Nose/Throat oral cavity/pharynx/larynx Overall: oral mucosa clear 02/22/2015 None Full Exam - General 1994 Respiratory auscultation Overall: breath sounds clear bilaterally 02/22/2015 None Full Exam - General 1994 Respiratory respiratory effort/rhythm Overall: no retractions 02/22/2015 None Full Exam - General 1994 Respiratory respiratory effort/rhythm Overall: normal rate 02/22/2015 None Full Exam - General 1994 Cardiovascular auscultation of heart Overall: regular rate 02/22/2015 None Full Exam - General 1994 Cardiovascular auscultation of heart Overall: normal heart sounds 02/22/2015 None Full Exam - General 1994 Cardiovascular auscultation of heart Overall: no murmurs 02/22/2015 None Full Exam - General 1994 Abdomen abdominal exam Overall: no tenderness 02/22/2015 None Full Exam - General 1994 Abdomen abdominal exam Overall: normal bowel sounds 02/22/2015 None Full Exam - General 1994 Musculoskeletal head and neck Overall: head atraumatic 02/22/2015 None Full Exam - General 1994 Musculoskeletal head and neck Cervical Spine: tender 02/22/2015 along left lateral neck to left upper shoulder - tender to toch with muscular trigger points identified along left lateral neck/shoulder Full Exam - General 1994 Neurologic cranial nerves Overall: crainial nerves 2 - 12 grossly intact 02/22/2015 None Full Exam - General 1994 Psychiatric orientation/consciousness Overall: oriented to person, place and time 02/22/2015 None Full Exam - General 1994 Psychiatric mood and affect Overall: normal mood and affect 02/22/2015 None Full Exam - General 1994 Musculoskeletal upper extremity Palpation - shoulder: acromioclavicular joint tenderness 02/22/2015 None Full Exam - General 1994 Constitutional general appearance Overall: well developed 12/13/2014 None Full Exam - General 1994 Constitutional general appearance Overall: in no acute distress 12/13/2014 None Full Exam - General 1994 Constitutional general appearance Overall: well nourished 12/13/2014 None Full Exam - General 1994 Eyes pupils and irises Overall: pupils equal, round, reactive to light and accomodation 12/13/2014 None Full Exam - General 1994 Ears/Nose/Throat otoscopic exam Overall: external auditory canals clear 12/13/2014 None Full Exam - General 1994 Ears/Nose/Throat otoscopic exam Overall: tympanic membranes clear 12/13/2014 None Full Exam - General 1994 Ears/Nose/Throat oral cavity/pharynx/larynx Overall: oral mucosa clear 12/13/2014 None Full Exam - General 1994 Respiratory auscultation Overall: breath sounds clear bilaterally 12/13/2014 None Full Exam - General 1994 Respiratory respiratory effort/rhythm Overall: no retractions 12/13/2014 None Full Exam - General 1994 Respiratory respiratory effort/rhythm Overall: normal rate 12/13/2014 None Full Exam - General 1994 Cardiovascular auscultation of heart Overall: regular rate 12/13/2014 None Full Exam - General 1994 Cardiovascular auscultation of heart Overall: normal heart sounds 12/13/2014 None Full Exam - General 1994 Cardiovascular auscultation of heart Overall: no murmurs 12/13/2014 None Full Exam - General 1994 Abdomen abdominal exam Overall: no tenderness 12/13/2014 None Full Exam - General 1994 Abdomen abdominal exam Overall: normal bowel sounds 12/13/2014 None Full Exam - General 1994 Musculoskeletal head and neck Overall: head atraumatic 12/13/2014 None Full Exam - General 1994 Musculoskeletal head and neck Cervical Spine: tender 12/13/2014 along left lateral neck to left upper shoulder - tender to toch with muscular trigger points identified x 3 along left lateral neck/shoulder Full Exam - General 1994 Neurologic cranial nerves Overall: crainial nerves 2 - 12 grossly intact 12/13/2014 None Full Exam - General 1994 Psychiatric orientation/consciousness Overall: oriented to person, place and time 12/13/2014 None Full Exam - General 1994 Psychiatric mood and affect Overall: normal mood and affect 12/13/2014 None Full Exam - General 1994 Constitutional general appearance Overall: well developed 09/05/2014 None Full Exam - General 1994 Constitutional general appearance Overall: in no acute distress 09/05/2014 None Full Exam - General 1994 Constitutional general appearance Overall: well nourished 09/05/2014 None Full Exam - General 1994 Eyes pupils and irises Overall: pupils equal, round, reactive to light and accomodation 09/05/2014 None Full Exam - General 1994 Ears/Nose/Throat otoscopic exam Overall: external auditory canals clear 09/05/2014 None Full Exam - General 1994 Ears/Nose/Throat otoscopic exam Overall: tympanic membranes clear 09/05/2014 None Full Exam - General 1994 Ears/Nose/Throat oral cavity/pharynx/larynx Overall: oral mucosa clear 09/05/2014 None Full Exam - General 1994 Respiratory auscultation Overall: breath sounds clear bilaterally 09/05/2014 None Full Exam - General 1994 Respiratory respiratory effort/rhythm Overall: no retractions 09/05/2014 None Full Exam - General 1994 Respiratory respiratory effort/rhythm Overall: normal rate 09/05/2014 None Full Exam - General 1994 Cardiovascular auscultation of heart Overall: regular rate 09/05/2014 None Full Exam - General 1994 Cardiovascular auscultation of heart Overall: normal heart sounds 09/05/2014 None Full Exam - General 1994 Cardiovascular auscultation of heart Overall: no murmurs 09/05/2014 None Full Exam - General 1994 Musculoskeletal head and neck Overall: head atraumatic 09/05/2014 None Full Exam - General 1994 Musculoskeletal head and neck Cervical Spine: tender 09/05/2014 tender at lateral neck, at scapula to the center of the muscles - paraspinous muscles tender - three tender sites identified, and injected with lidocaine with steroid. --Improved - but still slightly tender at left lateral neck Full Exam - General 1994 Psychiatric orientation/consciousness Overall: oriented to person, place and time 09/05/2014 None Full Exam - General 1994 Psychiatric mood and affect Overall: normal mood and affect 09/05/2014 None Full Exam - General 1994 Constitutional general appearance Overall: well developed 08/22/2014 None Full Exam - General 1994 Constitutional general appearance Overall: in no acute distress 08/22/2014 None Full Exam - General 1994 Constitutional general appearance Overall: well nourished 08/22/2014 None Full Exam - General 1994 Eyes pupils and irises Overall: pupils equal, round, reactive to light and accomodation 08/22/2014 None Full Exam - General 1994 Ears/Nose/Throat otoscopic exam Overall: external auditory canals clear 08/22/2014 None Full Exam - General 1994 Ears/Nose/Throat otoscopic exam Overall: tympanic membranes clear 08/22/2014 None Full Exam - General 1994 Ears/Nose/Throat oral cavity/pharynx/larynx Overall: oral mucosa clear 08/22/2014 None Full Exam - General 1994 Respiratory auscultation Overall: breath sounds clear bilaterally 08/22/2014 None Full Exam - General 1994 Respiratory respiratory effort/rhythm Overall: no retractions 08/22/2014 None Full Exam - General 1994 Respiratory respiratory effort/rhythm Overall: normal rate 08/22/2014 None Full Exam - General 1994 Cardiovascular auscultation of heart Overall: regular rate 08/22/2014 None Full Exam - General 1994 Cardiovascular auscultation of heart Overall: normal heart sounds 08/22/2014 None Full Exam - General 1994 Cardiovascular auscultation of heart Overall: no murmurs 08/22/2014 None Full Exam - General 1994 Abdomen abdominal exam Overall: no tenderness 08/22/2014 None Full Exam - General 1994 Abdomen abdominal exam Overall: normal bowel sounds 08/22/2014 None Full Exam - General 1994 Musculoskeletal head and neck Overall: head atraumatic 08/22/2014 None Full Exam - General 1994 Neurologic cranial nerves Overall: crainial nerves 2 - 12 grossly intact 08/22/2014 None Full Exam - General 1994 Psychiatric orientation/consciousness Overall: oriented to person, place and time 08/22/2014 None Full Exam - General 1994 Psychiatric mood and affect Overall: normal mood and affect 08/22/2014 None Full Exam - General 1994 Musculoskeletal head and neck Cervical Spine: tender 08/22/2014 tender at lateral neck, at scapula to the center of the muscles - paraspinous muscles tender - three tender sites identified, and injected with lidocaine with steroid. Full Exam - General 1994 Constitutional general appearance Overall: well developed 05/30/2014 None Full Exam - General 1994 Constitutional general appearance Overall: in no acute distress 05/30/2014 None Full Exam - General 1994 Constitutional general appearance Overall: well nourished 05/30/2014 None Full Exam - General 1994 Eyes pupils and irises Overall: pupils equal, round, reactive to light and accomodation 05/30/2014 None Full Exam - General 1994 Respiratory auscultation Overall: breath sounds clear bilaterally 05/30/2014 None Full Exam - General 1994 Respiratory respiratory effort/rhythm Overall: no retractions 05/30/2014 None Full Exam - General 1994 Respiratory respiratory effort/rhythm Overall: normal rate 05/30/2014 None Full Exam - General 1994 Cardiovascular auscultation of heart Overall: regular rate 05/30/2014 None Full Exam - General 1994 Cardiovascular auscultation of heart Overall: normal heart sounds 05/30/2014 None Full Exam - General 1994 Cardiovascular auscultation of heart Overall: no murmurs 05/30/2014 None Full Exam - General 1994 Abdomen abdominal exam Overall: no tenderness 05/30/2014 None Full Exam - General 1994 Abdomen abdominal exam Overall: normal bowel sounds 05/30/2014 None Full Exam - General 1994 Musculoskeletal head and neck Overall: head atraumatic 05/30/2014 None Full Exam - General 1994 Neurologic cranial nerves Overall: crainial nerves 2 - 12 grossly intact 05/30/2014 None Full Exam - General 1994 Psychiatric orientation/consciousness Overall: oriented to person, place and time 05/30/2014 None Full Exam - General 1994 Psychiatric mood and affect Overall: normal mood and affect 05/30/2014 None Full Exam - General 1994 Ears/Nose/Throat otoscopic exam Overall: external auditory canals clear 05/30/2014 None Full Exam - General 1994 Ears/Nose/Throat otoscopic exam Overall: tympanic membranes clear 05/30/2014 None Full Exam - General 1994 Ears/Nose/Throat oral cavity/pharynx/larynx Overall: oral mucosa clear 05/30/2014 None Full Exam - General 1994 Musculoskeletal head and neck Cervical Spine: tender 05/30/2014 along left lateral neck to left upper shoulder - tender to toch with muscular trigger points identified x 3 along left lateral neck/shoulder Full Exam - General 1994 Constitutional general appearance Overall: well developed 03/02/2014 None Full Exam - General 1994 Constitutional general appearance Overall: in no acute distress 03/02/2014 None Full Exam - General 1994 Constitutional general appearance Overall: well nourished 03/02/2014 None Full Exam - General 1994 Eyes pupils and irises Overall: pupils equal, round, reactive to light and accomodation 03/02/2014 None Full Exam - General 1994 Respiratory auscultation Overall: breath sounds clear bilaterally 03/02/2014 None Full Exam - General 1994 Respiratory respiratory effort/rhythm Overall: no retractions 03/02/2014 None Full Exam - General 1994 Respiratory respiratory effort/rhythm Overall: normal rate 03/02/2014 None Full Exam - General 1994 Cardiovascular auscultation of heart Overall: regular rate 03/02/2014 None Full Exam - General 1994 Cardiovascular auscultation of heart Overall: normal heart sounds 03/02/2014 None Full Exam - General 1994 Cardiovascular auscultation of heart Overall: no murmurs 03/02/2014 None Full Exam - General 1994 Abdomen abdominal exam Overall: no tenderness 03/02/2014 None Full Exam - General 1994 Abdomen abdominal exam Overall: normal bowel sounds 03/02/2014 None Full Exam - General 1994 Musculoskeletal head and neck Overall: head atraumatic 03/02/2014 None Full Exam - General 1994 Musculoskeletal head and neck Overall: cervical spine benign 03/02/2014 None Full Exam - General 1994 Neurologic cranial nerves Overall: crainial nerves 2 - 12 grossly intact 03/02/2014 None Full Exam - General 1994 Psychiatric orientation/consciousness Overall: oriented to person, place and time 03/02/2014 None Full Exam - General 1994 Psychiatric mood and affect Overall: normal mood and affect 03/02/2014 None Full Exam - General 1994 Constitutional general appearance Overall: well developed 11/15/2013 None Full Exam - General 1994 Constitutional general appearance Overall: in no acute distress 11/15/2013 None Full Exam - General 1994 Constitutional general appearance Overall: well nourished 11/15/2013 None Full Exam - General 1994 Eyes pupils and irises Overall: pupils equal, round, reactive to light and accomodation 11/15/2013 None Full Exam - General 1994 Respiratory auscultation Overall: breath sounds clear bilaterally 11/15/2013 None Full Exam - General 1994 Respiratory respiratory effort/rhythm Overall: no retractions 11/15/2013 None Full Exam - General 1994 Respiratory respiratory effort/rhythm Overall: normal rate 11/15/2013 None Full Exam - General 1994 Cardiovascular auscultation of heart Overall: regular rate 11/15/2013 None Full Exam - General 1994 Cardiovascular auscultation of heart Overall: normal heart sounds 11/15/2013 None Full Exam - General 1994 Cardiovascular auscultation of heart Overall: no murmurs 11/15/2013 None Full Exam - General 1994 Abdomen abdominal exam Overall: no tenderness 11/15/2013 None Full Exam - General 1994 Abdomen abdominal exam Overall: normal bowel sounds 11/15/2013 None Full Exam - General 1994 Musculoskeletal head and neck Overall: head atraumatic 11/15/2013 None Full Exam - General 1994 Musculoskeletal head and neck Overall: cervical spine benign 11/15/2013 None Full Exam - General 1994 Neurologic cranial nerves Overall: crainial nerves 2 - 12 grossly intact 11/15/2013 None Full Exam - General 1994 Psychiatric orientation/consciousness Overall: oriented to person, place and time 11/15/2013 None Full Exam - General 1994 Psychiatric mood and affect Overall: normal mood and affect 11/15/2013 None Full Exam - General 1994 Constitutional general appearance Overall: well developed 09/13/2013 None Full Exam - General 1994 Constitutional general appearance Overall: in no acute distress 09/13/2013 None Full Exam - General 1994 Constitutional general appearance Overall: well nourished 09/13/2013 None Full Exam - General 1994 Respiratory auscultation Overall: breath sounds clear bilaterally 09/13/2013 None Full Exam - General 1994 Respiratory respiratory effort/rhythm Overall: no retractions 09/13/2013 None Full Exam - General 1994 Respiratory respiratory effort/rhythm Overall: normal rate 09/13/2013 None Full Exam - General 1994 Cardiovascular auscultation of heart Overall: regular rate 09/13/2013 None Full Exam - General 1994 Cardiovascular auscultation of heart Overall: normal heart sounds 09/13/2013 None Full Exam - General 1994 Cardiovascular auscultation of heart Overall: no murmurs 09/13/2013 None Full Exam - General 1994 Abdomen abdominal exam Overall: no tenderness 09/13/2013 None Full Exam - General 1994 Abdomen abdominal exam Overall: normal bowel sounds 09/13/2013 None Full Exam - General 1994 Musculoskeletal head and neck Overall: head atraumatic 09/13/2013 None Full Exam - General 1994 Musculoskeletal head and neck Overall: cervical spine benign 09/13/2013 None Full Exam - General 1994 Neurologic cranial nerves Overall: crainial nerves 2 - 12 grossly intact 09/13/2013 None Full Exam - General 1994 Psychiatric orientation/consciousness Overall: oriented to person, place and time 09/13/2013 None Full Exam - General 1994 Psychiatric mood and affect Overall: normal mood and affect 09/13/2013 None Full Exam - General 1994 Constitutional general appearance Overall: well developed 08/31/2013 None Full Exam - General 1994 Constitutional general appearance Overall: in no acute distress 08/31/2013 None Full Exam - General 1994 Constitutional general appearance Overall: well nourished 08/31/2013 None Full Exam - General 1994 Respiratory auscultation Overall: breath sounds clear bilaterally 08/31/2013 None Full Exam - General 1994 Respiratory respiratory effort/rhythm Overall: no retractions 08/31/2013 None Full Exam - General 1994 Respiratory respiratory effort/rhythm Overall: normal rate 08/31/2013 None Full Exam - General 1994 Cardiovascular auscultation of heart Overall: regular rate 08/31/2013 None Full Exam - General 1994 Cardiovascular auscultation of heart Overall: normal heart sounds 08/31/2013 None Full Exam - General 1994 Cardiovascular auscultation of heart Overall: no murmurs 08/31/2013 None Full Exam - General 1994 Abdomen abdominal exam Overall: no tenderness 08/31/2013 None Full Exam - General 1994 Abdomen abdominal exam Overall: normal bowel sounds 08/31/2013 None Full Exam - General 1994 Musculoskeletal head and neck Overall: head atraumatic 08/31/2013 None Full Exam - General 1994 Musculoskeletal head and neck Overall: cervical spine benign 08/31/2013 None Full Exam - General 1994 Neurologic cranial nerves Overall: crainial nerves 2 - 12 grossly intact 08/31/2013 None Full Exam - General 1994 Psychiatric orientation/consciousness Overall: oriented to person, place and time 08/31/2013 None Full Exam - General 1994 Psychiatric mood and affect Overall: normal mood and affect 08/31/2013 None Full Exam - General 1994 Constitutional general appearance Overall: well nourished 06/29/2013 None Full Exam - General 1994 Constitutional general appearance Overall: well developed 06/29/2013 None Full Exam - General 1994 Constitutional general appearance Overall: in no acute distress 06/29/2013 None Full Exam - General 1994 Psychiatric orientation/consciousness Overall: oriented to person, place and time 06/29/2013 None Full Exam - General 1994 Integument inspection of skin Dermatitis: erythema 06/29/2013 and bruising - but does not appear acutely infection, just indurated slightly around incision site. on left upper chest. Full Exam - General 1994 Respiratory respiratory effort/rhythm Overall: normal rate 06/29/2013 None Full Exam - General 1994 Respiratory respiratory effort/rhythm Overall: no retractions 06/29/2013 None Full Exam - General 1994 Respiratory auscultation Overall: breath sounds clear bilaterally 06/29/2013 None Full Exam - General 1994 Cardiovascular auscultation of heart Overall: regular rate 06/29/2013 None Full Exam - General 1994 Cardiovascular auscultation of heart Overall: normal heart sounds 06/29/2013 None Full Exam - General 1994 Constitutional general appearance Overall: well developed 06/15/2013 None Full Exam - General 1994 Constitutional general appearance Overall: in no acute distress 06/15/2013 None Full Exam - General 1994 Constitutional general appearance Overall: well nourished 06/15/2013 None Full Exam - General 1994 Eyes pupils and irises Overall: pupils equal, round, reactive to light and accomodation 06/15/2013 None Full Exam - General 1994 Respiratory auscultation Overall: breath sounds clear bilaterally 06/15/2013 None Full Exam - General 1994 Respiratory respiratory effort/rhythm Overall: no retractions 06/15/2013 None Full Exam - General 1994 Respiratory respiratory effort/rhythm Overall: normal rate 06/15/2013 None Full Exam - General 1994 Cardiovascular auscultation of heart Overall: regular rate 06/15/2013 None Full Exam - General 1994 Cardiovascular auscultation of heart Overall: normal heart sounds 06/15/2013 None Full Exam - General 1994 Cardiovascular auscultation of heart Overall: no murmurs 06/15/2013 None Full Exam - General 1994 Abdomen abdominal exam Overall: no tenderness 06/15/2013 None Full Exam - General 1994 Abdomen abdominal exam Overall: normal bowel sounds 06/15/2013 None Full Exam - General 1994 Musculoskeletal head and neck Overall: head atraumatic 06/15/2013 None Full Exam - General 1994 Musculoskeletal head and neck Overall: cervical spine benign 06/15/2013 None Full Exam - General 1994 Neurologic cranial nerves Overall: crainial nerves 2 - 12 grossly intact 06/15/2013 None Full Exam - General 1994 Psychiatric orientation/consciousness Overall: oriented to person, place and time 06/15/2013 None Full Exam - General 1994 Psychiatric mood and affect Overall: normal mood and affect 06/15/2013 None Full Exam - General 1994 Constitutional general appearance Overall: well developed 05/25/2013 None Full Exam - General 1994 Constitutional general appearance Overall: in no acute distress 05/25/2013 None Full Exam - General 1994 Constitutional general appearance Overall: well nourished 05/25/2013 None Full Exam - General 1994 Eyes pupils and irises Overall: pupils equal, round, reactive to light and accomodation 05/25/2013 None Full Exam - General 1994 Respiratory auscultation Overall: breath sounds clear bilaterally 05/25/2013 None Full Exam - General 1994 Respiratory respiratory effort/rhythm Overall: no retractions 05/25/2013 None Full Exam - General 1994 Respiratory respiratory effort/rhythm Overall: normal rate 05/25/2013 None Full Exam - General 1994 Cardiovascular auscultation of heart Overall: regular rate 05/25/2013 None Full Exam - General 1994 Cardiovascular auscultation of heart Overall: normal heart sounds 05/25/2013 None Full Exam - General 1994 Cardiovascular auscultation of heart Overall: no murmurs 05/25/2013 None Full Exam - General 1994 Abdomen abdominal exam Overall: no tenderness 05/25/2013 None Full Exam - General 1994 Abdomen abdominal exam Overall: normal bowel sounds 05/25/2013 None Full Exam - General 1994 Musculoskeletal head and neck Overall: head atraumatic 05/25/2013 None Full Exam - General 1994 Musculoskeletal head and neck Overall: cervical spine benign 05/25/2013 None Full Exam - General 1994 Neurologic cranial nerves Overall: crainial nerves 2 - 12 grossly intact 05/25/2013 None Full Exam - General 1994 Psychiatric orientation/consciousness Overall: oriented to person, place and time 05/25/2013 None Full Exam - General 1994 Psychiatric mood and affect Overall: normal mood and affect 05/25/2013 None Full Exam - General 1994 Ears/Nose/Throat oral cavity/pharynx/larynx Parotid: enlarged 03/03/2013 --Resolved Full Exam - General 1994 Ears/Nose/Throat oral cavity/pharynx/larynx Parotid: tender 03/03/2013 --Resolved Full Exam - General 1994 Ears/Nose/Throat oral cavity/pharynx/larynx Parotid: firm 03/03/2013 --Resolved Full Exam - General 1994 Ears/Nose/Throat oral cavity/pharynx/larynx Parotid: warm 03/03/2013 --Resolved Full Exam - General 1994 Ears/Nose/Throat oral cavity/pharynx/larynx Parotid: erythematous 03/03/2013 --Resolved Full Exam - General 1994 Constitutional general appearance Overall: well developed 03/03/2013 None Full Exam - General 1994 Constitutional general appearance Overall: in no acute distress 03/03/2013 None Full Exam - General 1994 Constitutional general appearance Overall: well nourished 03/03/2013 None Full Exam - General 1994 Eyes pupils and irises Overall: pupils equal, round, reactive to light and accomodation 03/03/2013 None Full Exam - General 1994 Ears/Nose/Throat otoscopic exam Overall: external auditory canals clear 03/03/2013 None Full Exam - General 1994 Ears/Nose/Throat otoscopic exam Overall: tympanic membranes clear 03/03/2013 None Full Exam - General 1994 Ears/Nose/Throat oral cavity/pharynx/larynx Overall: oral mucosa clear 03/03/2013 None Full Exam - General 1994 Ears/Nose/Throat oral cavity/pharynx/larynx Overall: oropharyngeal mucosa clear 03/03/2013 None Full Exam - General 1994 Respiratory auscultation Overall: breath sounds clear bilaterally 03/03/2013 None Full Exam - General 1994 Respiratory respiratory effort/rhythm Overall: no retractions 03/03/2013 None Full Exam - General 1994 Respiratory respiratory effort/rhythm Overall: normal rate 03/03/2013 None Full Exam - General 1994 Cardiovascular auscultation of heart Overall: regular rate 03/03/2013 None Full Exam - General 1994 Cardiovascular auscultation of heart Overall: normal heart sounds 03/03/2013 None Full Exam - General 1994 Cardiovascular auscultation of heart Overall: no murmurs 03/03/2013 None Full Exam - General 1994 Abdomen abdominal exam Overall: no tenderness 03/03/2013 None Full Exam - General 1994 Abdomen abdominal exam Overall: normal bowel sounds 03/03/2013 None Full Exam - General 1994 Musculoskeletal head and neck Overall: head atraumatic 03/03/2013 None Full Exam - General 1994 Musculoskeletal head and neck Overall: cervical spine benign 03/03/2013 None Full Exam - General 1994 Integument inspection of skin Overall: no rash, lesions 03/03/2013 None Full Exam - General 1994 Neurologic cranial nerves Overall: crainial nerves 2 - 12 grossly intact 03/03/2013 None Full Exam - General 1994 Psychiatric orientation/consciousness Overall: oriented to person, place and time 03/03/2013 None Full Exam - General 1994 Psychiatric mood and affect Overall: normal mood and affect 03/03/2013 None Full Exam - General 1994 Constitutional general appearance Overall: well developed 02/16/2013 None Full Exam - General 1994 Constitutional general appearance Overall: in no acute distress 02/16/2013 None Full Exam - General 1994 Constitutional general appearance Overall: well nourished 02/16/2013 None Full Exam - General 1994 Eyes pupils and irises Overall: pupils equal, round, reactive to light and accomodation 02/16/2013 None Full Exam - General 1994 Respiratory auscultation Overall: breath sounds clear bilaterally 02/16/2013 None Full Exam - General 1994 Respiratory respiratory effort/rhythm Overall: no retractions 02/16/2013 None Full Exam - General 1994 Respiratory respiratory effort/rhythm Overall: normal rate 02/16/2013 None Full Exam - General 1994 Cardiovascular auscultation of heart Overall: regular rate 02/16/2013 None Full Exam - General 1994 Cardiovascular auscultation of heart Overall: normal heart sounds 02/16/2013 None Full Exam - General 1994 Cardiovascular auscultation of heart Overall: no murmurs 02/16/2013 None Full Exam - General 1994 Abdomen abdominal exam Overall: no tenderness 02/16/2013 None Full Exam - General 1994 Abdomen abdominal exam Overall: normal bowel sounds 02/16/2013 None Full Exam - General 1994 Musculoskeletal head and neck Overall: head atraumatic 02/16/2013 None Full Exam - General 1994 Musculoskeletal head and neck Overall: cervical spine benign 02/16/2013 None Full Exam - General 1994 Neurologic cranial nerves Overall: crainial nerves 2 - 12 grossly intact 02/16/2013 None Full Exam - General 1994 Psychiatric orientation/consciousness Overall: oriented to person, place and time 02/16/2013 None Full Exam - General 1994 Psychiatric mood and affect Overall: normal mood and affect 02/16/2013 None Full Exam - General 1994 Ears/Nose/Throat otoscopic exam Overall: tympanic membranes clear 02/16/2013 None Full Exam - General 1994 Ears/Nose/Throat otoscopic exam Overall: external auditory canals clear 02/16/2013 None Full Exam - General 1994 Ears/Nose/Throat oral cavity/pharynx/larynx Overall: oropharyngeal mucosa clear 02/16/2013 None Full Exam - General 1994 Ears/Nose/Throat oral cavity/pharynx/larynx Overall: oral mucosa clear 02/16/2013 None Full Exam - General 1994 Ears/Nose/Throat oral cavity/pharynx/larynx Parotid: enlarged 02/16/2013 None Full Exam - General 1994 Ears/Nose/Throat oral cavity/pharynx/larynx Parotid: tender 02/16/2013 None Full Exam - General 1994 Ears/Nose/Throat oral cavity/pharynx/larynx Parotid: firm 02/16/2013 None Full Exam - General 1995 Ears/Nose/Throat oral cavity/pharynx/larynx Parotid: erythematous 02/16/2013 None Full Exam - General 1995 Ears/Nose/Throat oral cavity/pharynx/larynx Parotid: warm 02/16/2013 None Full Exam - General 1994 Integument inspection of skin Overall: no rash, lesions 02/16/2013 None Full Exam - General 1994 Constitutional general appearance Overall: well developed 02/02/2013 None Full Exam - General 1994 Constitutional general appearance Overall: in no acute distress 02/02/2013 None Full Exam - General 1995 Constitutional general appearance Overall: well nourished 02/02/2013 None Full Exam - General 1994 Eyes pupils and irises Overall: pupils equal, round, reactive to light and accomodation 02/02/2013 None Full Exam - General 1994 Respiratory auscultation Overall: breath sounds clear bilaterally 02/02/2013 None Full Exam - General 1994 Respiratory respiratory effort/rhythm Overall: no retractions 02/02/2013 None Full Exam - General 1994 Respiratory respiratory effort/rhythm Overall: normal rate 02/02/2013 None Full Exam - General 1994 Cardiovascular auscultation of heart Overall: regular rate 02/02/2013 None Full Exam - General 1994 Cardiovascular auscultation of heart Overall: normal heart sounds 02/02/2013 None Full Exam - General 1994 Cardiovascular auscultation of heart Overall: no murmurs 02/02/2013 None Full Exam - General 1994 Abdomen abdominal exam Overall: no tenderness 02/02/2013 None Full Exam - General 1994 Abdomen abdominal exam Overall: normal bowel sounds 02/02/2013 None Full Exam - General 1994 Musculoskeletal head and neck Overall: head atraumatic 02/02/2013 None Full Exam - General 1994 Musculoskeletal head and neck Overall: cervical spine benign 02/02/2013 None Full Exam - General 1994 Neurologic cranial nerves Overall: crainial nerves 2 - 12 grossly intact 02/02/2013 None Full Exam - General 1994 Psychiatric orientation/consciousness Overall: oriented to person, place and time 02/02/2013 None Full Exam - General 1994 Psychiatric mood and affect Overall: normal mood and affect 02/02/2013 None Full Exam - General 1994 Ears/Nose/Throat otoscopic exam Overall: tympanic membranes clear 02/02/2013 None Full Exam - General 1994 Ears/Nose/Throat otoscopic exam Overall: external auditory canals clear 02/02/2013 None Full Exam - General 1995 Ears/Nose/Throat oral cavity/pharynx/larynx Overall: oropharyngeal mucosa clear 02/02/2013 None Full Exam - General 1995 Ears/Nose/Throat oral cavity/pharynx/larynx Overall: no masses 02/02/2013 None Full Exam - General 1995 Ears/Nose/Throat oral cavity/pharynx/larynx Overall: oral mucosa clear 02/02/2013 None Full Exam - General 1994 Musculoskeletal spine, ribs and pelvis Spine: tender @ cervical spine 02/02/2013 along musculature - pt has multiple sites of tenderness - several "trigger points" Full Exam - General 1995 Constitutional general appearance Overall: well developed 10/07/2012 None Full Exam - General 1995 Constitutional general appearance Overall: in no acute distress 10/07/2012 None Full Exam - General 1995 Constitutional general appearance Overall: well nourished 10/07/2012 None Full Exam - General 1994 Eyes pupils and irises Overall: pupils equal, round, reactive to light and accomodation 10/07/2012 None Full Exam - General 1994 Respiratory auscultation Overall: breath sounds clear bilaterally 10/07/2012 None Full Exam - General 1994 Respiratory respiratory effort/rhythm Overall: no retractions 10/07/2012 None Full Exam - General 1994 Respiratory respiratory effort/rhythm Overall: normal rate 10/07/2012 None Full Exam - General 1994 Cardiovascular auscultation of heart Overall: regular rate 10/07/2012 None Full Exam - General 1994 Cardiovascular auscultation of heart Overall: normal heart sounds 10/07/2012 None Full Exam - General 1994 Cardiovascular auscultation of heart Overall: no murmurs 10/07/2012 None Full Exam - General 1994 Abdomen abdominal exam Overall: no tenderness 10/07/2012 None Full Exam - General 1995 Abdomen abdominal exam Overall: normal bowel sounds 10/07/2012 None Full Exam - General 1994 Musculoskeletal head and neck Overall: head atraumatic 10/07/2012 None Full Exam - General 1994 Musculoskeletal head and neck Overall: cervical spine benign 10/07/2012 None Full Exam - General 1994 Neurologic cranial nerves Overall: crainial nerves 2 - 12 grossly intact 10/07/2012 None Full Exam - General 1994 Psychiatric orientation/consciousness Overall: oriented to person, place and time 10/07/2012 None Full Exam - General 1994 Psychiatric mood and affect Overall: normal mood and affect 10/07/2012 None Full Exam - General 1995 Constitutional general appearance Overall: well developed 08/18/2012 None Full Exam - General 1994 Constitutional general appearance Overall: in no acute distress 08/18/2012 None Full Exam - General 1994 Constitutional general appearance Overall: well nourished 08/18/2012 None Full Exam - General 1994 Eyes pupils and irises Overall: pupils equal, round, reactive to light and accomodation 08/18/2012 None Full Exam - General 1994 Respiratory auscultation Overall: breath sounds clear bilaterally 08/18/2012 None Full Exam - General 1994 Respiratory respiratory effort/rhythm Overall: no retractions 08/18/2012 None Full Exam - General 1994 Respiratory respiratory effort/rhythm Overall: normal rate 08/18/2012 None Full Exam - General 1994 Cardiovascular auscultation of heart Overall: regular rate 08/18/2012 None Full Exam - General 1994 Cardiovascular auscultation of heart Overall: normal heart sounds 08/18/2012 None Full Exam - General 1994 Cardiovascular auscultation of heart Overall: no murmurs 08/18/2012 None Full Exam - General 1994 Abdomen abdominal exam Overall: no tenderness 08/18/2012 None Full Exam - General 1994 Abdomen abdominal exam Overall: normal bowel sounds 08/18/2012 None Full Exam - General 1994 Musculoskeletal head and neck Overall: head atraumatic 08/18/2012 None Full Exam - General 1994 Musculoskeletal head and neck Overall: cervical spine benign 08/18/2012 None Full Exam - General 1994 Neurologic cranial nerves Overall: crainial nerves 2 - 12 grossly intact 08/18/2012 None Full Exam - General 1994 Psychiatric orientation/consciousness Overall: oriented to person, place and time 08/18/2012 None Full Exam - General 1994 Psychiatric mood and affect Overall: normal mood and affect 08/18/2012 None Full Exam - General 1994 Constitutional general appearance Overall: in no acute distress 07/14/2012 None Full Exam - General 1994 Constitutional general appearance Overall: well nourished 07/14/2012 None Full Exam - General 1994 Eyes pupils and irises Overall: pupils equal, round, reactive to light and accomodation 07/14/2012 None Full Exam - General 1994 Respiratory auscultation Overall: breath sounds clear bilaterally 07/14/2012 None Full Exam - General 1994 Respiratory respiratory effort/rhythm Overall: no retractions 07/14/2012 None Full Exam - General 1994 Respiratory respiratory effort/rhythm Overall: normal rate 07/14/2012 None Full Exam - General 1995 Cardiovascular auscultation of heart Overall: regular rate 07/14/2012 None Full Exam - General 1995 Cardiovascular auscultation of heart Overall: normal heart sounds 07/14/2012 None Full Exam - General 1995 Cardiovascular auscultation of heart Overall: no murmurs 07/14/2012 None Full Exam - General 1995 Abdomen abdominal exam Overall: no tenderness 07/14/2012 None Full Exam - General 1995 Abdomen abdominal exam Overall: normal bowel sounds 07/14/2012 None Full Exam - General 1995 Musculoskeletal head and neck Overall: head atraumatic 07/14/2012 None Full Exam - General 1995 Musculoskeletal head and neck Overall: cervical spine benign 07/14/2012 None Full Exam - General 1995 Neurologic cranial nerves Overall: crainial nerves 2 - 12 grossly intact 07/14/2012 None Full Exam - General 1995 Constitutional general appearance Overall: well developed 07/14/2012 None Full Exam - General 1994 Psychiatric orientation/consciousness Overall: oriented to person, place and time 07/14/2012 None Full Exam - General 1994 Psychiatric mood and affect Overall: normal mood and affect 07/14/2012 None Full Exam - General 1994 Eyes pupils and irises Overall: pupils equal, round, reactive to light and accomodation 06/23/2012 None Full Exam - General 1994 Respiratory auscultation Overall: breath sounds clear bilaterally 06/23/2012 None Full Exam - General 1994 Respiratory respiratory effort/rhythm Overall: no retractions 06/23/2012 None Full Exam - General 1994 Respiratory respiratory effort/rhythm Overall: normal rate 06/23/2012 None Full Exam - General 1994 Cardiovascular auscultation of heart Overall: regular rate 06/23/2012 None Full Exam - General 1994 Cardiovascular auscultation of heart Overall: normal heart sounds 06/23/2012 None Full Exam - General 1994 Cardiovascular auscultation of heart Overall: no murmurs 06/23/2012 None Full Exam - General 1994 Abdomen abdominal exam Overall: no tenderness 06/23/2012 None Full Exam - General 1994 Abdomen abdominal exam Overall: normal bowel sounds 06/23/2012 None Full Exam - General 1994 Musculoskeletal head and neck Overall: head atraumatic 06/23/2012 None Full Exam - General 1994 Musculoskeletal head and neck Overall: cervical spine benign 06/23/2012 None Full Exam - General 1994 Neurologic cranial nerves Overall: crainial nerves 2 - 12 grossly intact 06/23/2012 None Full Exam - General 1994 Psychiatric orientation/consciousness Overall: oriented to person, place and time 06/23/2012 None Full Exam - General 1994 Psychiatric mood and affect Overall: normal mood and affect 06/23/2012 None Full Exam - General 1994 Constitutional general appearance Overall: well developed 06/23/2012 None Full Exam - General 1994 Constitutional general appearance Overall: in no acute distress 06/23/2012 None Full Exam - General 1994 Constitutional general appearance Overall: well nourished 06/23/2012 None Full Exam - General 1994 Ears/Nose/Throat otoscopic exam Overall: tympanic membranes clear 06/23/2012 None Full Exam - General 1994 Ears/Nose/Throat otoscopic exam Overall: external auditory canals clear 06/23/2012 None Full Exam - General 1994 Ears/Nose/Throat oral cavity/pharynx/larynx Overall: oropharyngeal mucosa clear 06/23/2012 None Full Exam - General 1994 Ears/Nose/Throat oral cavity/pharynx/larynx Overall: no masses 06/23/2012 None Full Exam - General 1994 Ears/Nose/Throat oral cavity/pharynx/larynx Overall: oral mucosa clear 06/23/2012 None Full Exam - General 1994 Constitutional general appearance Overall: well nourished 02/19/2012 None Full Exam - General 1994 Constitutional general appearance Overall: well developed 02/19/2012 None Full Exam - General 1994 Constitutional general appearance Overall: in no acute distress 02/19/2012 None Full Exam - General 1994 Eyes pupils and irises Overall: pupils equal, round, reactive to light and accomodation 02/19/2012 None Full Exam - General 1994 Respiratory auscultation Overall: breath sounds clear bilaterally 02/19/2012 None Full Exam - General 1994 Respiratory respiratory effort/rhythm Overall: no retractions 02/19/2012 None Full Exam - General 1994 Respiratory respiratory effort/rhythm Overall: normal rate 02/19/2012 None Full Exam - General 1994 Cardiovascular auscultation of heart Overall: regular rate 02/19/2012 None Full Exam - General 1994 Cardiovascular auscultation of heart Overall: normal heart sounds 02/19/2012 None Full Exam - General 1994 Cardiovascular auscultation of heart Overall: no murmurs 02/19/2012 None Full Exam - General 1994 Abdomen abdominal exam Overall: no tenderness 02/19/2012 None Full Exam - General 1995 Abdomen abdominal exam Overall: normal bowel sounds 02/19/2012 None Full Exam - General 1995 Musculoskeletal head and neck Overall: head atraumatic 02/19/2012 None Full Exam - General 1994 Musculoskeletal head and neck Overall: cervical spine benign 02/19/2012 None Full Exam - General 1994 Neurologic cranial nerves Overall: crainial nerves 2 - 12 grossly intact 02/19/2012 None Full Exam - General 1994 Psychiatric orientation/consciousness Overall: oriented to person, place and time 02/19/2012 None Full Exam - General 1994 Psychiatric mood and affect Overall: normal mood and affect 02/19/2012 None Full Exam - General 1994 Abdomen abdominal exam Overall: no tenderness 08/05/2011 None Full Exam - General 1994 Abdomen abdominal exam Overall: normal bowel sounds 08/05/2011 None Full Exam - General 1994 Cardiovascular auscultation of heart Overall: regular rate 08/05/2011 None Full Exam - General 1994 Cardiovascular auscultation of heart Overall: normal heart sounds 08/05/2011 None Full Exam - General 1994 Cardiovascular auscultation of heart Overall: no murmurs 08/05/2011 None Full Exam - General 1994 Constitutional general appearance Overall: well nourished 08/05/2011 None Full Exam - General 1994 Constitutional general appearance Overall: well developed 08/05/2011 None Full Exam - General 1994 Constitutional general appearance Overall: in no acute distress 08/05/2011 None Full Exam - General 1994 Eyes pupils and irises Overall: pupils equal, round, reactive to light and accomodation 08/05/2011 None Full Exam - General 1994 Musculoskeletal head and neck Overall: head atraumatic 08/05/2011 None Full Exam - General 1994 Musculoskeletal head and neck Overall: cervical spine benign 08/05/2011 None Full Exam - General 1994 Neurologic cranial nerves Overall: crainial nerves 2 - 12 grossly intact 08/05/2011 None Full Exam - General 1994 Psychiatric orientation/consciousness Overall: oriented to person, place and time 08/05/2011 None Full Exam - General 1994 Psychiatric mood and affect Overall: normal mood and affect 08/05/2011 None Full Exam - General 1994 Respiratory auscultation Overall: breath sounds clear bilaterally 08/05/2011 None Full Exam - General 1994 Respiratory respiratory effort/rhythm Overall: no retractions 08/05/2011 None Full Exam - General 1994 Respiratory respiratory effort/rhythm Overall: normal rate 08/05/2011 None Full Exam - General 1995 Constitutional general appearance Overall: well nourished 07/07/2011 None Full Exam - General 1994 Constitutional general appearance Overall: well developed 07/07/2011 None Full Exam - General 1994 Constitutional general appearance Overall: in no acute distress 07/07/2011 None Full Exam - General 1994 Eyes pupils and irises Overall: pupils equal, round, reactive to light and accomodation 07/07/2011 None Full Exam - General 1994 Respiratory auscultation Overall: breath sounds clear bilaterally 07/07/2011 None Full Exam - General 1995 Respiratory respiratory effort/rhythm Overall: no retractions 07/07/2011 None Full Exam - General 1995 Respiratory respiratory effort/rhythm Overall: normal rate 07/07/2011 None Full Exam - General 1994 Cardiovascular auscultation of heart Overall: regular rate 07/07/2011 None Full Exam - General 1994 Cardiovascular auscultation of heart Overall: normal heart sounds 07/07/2011 None Full Exam - General 1994 Cardiovascular auscultation of heart Overall: no murmurs 07/07/2011 None Full Exam - General 1994 Abdomen abdominal exam Overall: no tenderness 07/07/2011 None Full Exam - General 1994 Abdomen abdominal exam Overall: normal bowel sounds 07/07/2011 None Full Exam - General 1994 Musculoskeletal head and neck Overall: head atraumatic 07/07/2011 None Full Exam - General 1994 Musculoskeletal head and neck Overall: cervical spine benign 07/07/2011 None Full Exam - General 1994 Neurologic cranial nerves Overall: crainial nerves 2 - 12 grossly intact 07/07/2011 None Full Exam - General 1994 Psychiatric orientation/consciousness Overall: oriented to person, place and time 07/07/2011 None Full Exam - General 1994 Psychiatric mood and affect Overall: normal mood and affect 07/07/2011 None Full Exam - General 1994 Constitutional general appearance Overall: well nourished 06/16/2011 None Full Exam - General 1994 Constitutional general appearance Overall: well developed 06/16/2011 None Full Exam - General 1994 Constitutional general appearance Overall: in no acute distress 06/16/2011 None Full Exam - General 1994 Eyes pupils and irises Overall: pupils equal, round, reactive to light and accomodation 06/16/2011 None Full Exam - General 1994 Respiratory auscultation Overall: breath sounds clear bilaterally 06/16/2011 None Full Exam - General 1994 Respiratory respiratory effort/rhythm Overall: no retractions 06/16/2011 None Full Exam - General 1994 Respiratory respiratory effort/rhythm Overall: normal rate 06/16/2011 None Full Exam - General 1994 Cardiovascular auscultation of heart Overall: regular rate 06/16/2011 None Full Exam - General 1994 Cardiovascular auscultation of heart Overall: normal heart sounds 06/16/2011 None Full Exam - General 1994 Cardiovascular auscultation of heart Overall: no murmurs 06/16/2011 None Full Exam - General 1994 Abdomen abdominal exam Overall: no tenderness 06/16/2011 None Full Exam - General 1994 Abdomen abdominal exam Overall: normal bowel sounds 06/16/2011 None Full Exam - General 1994 Musculoskeletal head and neck Overall: head atraumatic 06/16/2011 None Full Exam - General 1994 Musculoskeletal head and neck Overall: cervical spine benign 06/16/2011 None Full Exam - General 1994 Neurologic cranial nerves Overall: crainial nerves 2 - 12 grossly intact 06/16/2011 None Full Exam - General 1994 Psychiatric orientation/consciousness Overall: oriented to person, place and time 06/16/2011 None Full Exam - General 1994 Psychiatric mood and affect Overall: normal mood and affect 06/16/2011 None Full Exam - General 1994 Musculoskeletal spine, ribs and pelvis Sacroiliac joints: a normal exam 06/16/2011 None Full Exam - General 1994 Musculoskeletal spine, ribs and pelvis Spine: tender @ thoracic spine 06/16/2011 None Full Exam - General 1994 Musculoskeletal spine, ribs and pelvis Ribs: a normal exam 06/16/2011 None Full Exam - General 1994 Musculoskeletal spine, ribs and pelvis ROM: a normal exam 06/16/2011 None Full Exam - General 1994 Musculoskeletal lower extremity Inspection - knee: swelling 06/16/2011 with significant bruising. Small bruise noted to left lateral knee as well. Full Exam - General 1994 Musculoskeletal lower extremity Palpation - knee: prepatellar swelling 06/16/2011 None Full Exam - General 1994 Musculoskeletal lower extremity Palpation - knee: prepatellar tenderness 06/16/2011 None Full Exam - General 1994 Musculoskeletal lower extremity ROM - knee: pain with flexion 06/16/2011 None Full Exam - General 1994 Ears/Nose/Throat oral cavity/pharynx/larynx Oral mucosa: thrush 06/16/2011 None Full Exam - General 1994 Constitutional general appearance Overall: well nourished 02/17/2011 None Full Exam - General 1994 Constitutional general appearance Overall: well developed 02/17/2011 None Full Exam - General 1994 Constitutional general appearance Overall: in no acute distress 02/17/2011 None Full Exam - General 1994 Eyes pupils and irises Overall: pupils equal, round, reactive to light and accomodation 02/17/2011 None Full Exam - General 1994 Respiratory auscultation Overall: breath sounds clear bilaterally 02/17/2011 None Full Exam - General 1994 Respiratory respiratory effort/rhythm Overall: normal rate 02/17/2011 None Full Exam - General 1994 Respiratory respiratory effort/rhythm Overall: no retractions 02/17/2011 None Full Exam - General 1994 Cardiovascular auscultation of heart Overall: regular rate 02/17/2011 None Full Exam - General 1994 Cardiovascular auscultation of heart Overall: normal heart sounds 02/17/2011 None Full Exam - General 1994 Cardiovascular auscultation of heart Overall: no murmurs 02/17/2011 None Full Exam - General 1994 Abdomen abdominal exam Overall: no tenderness 02/17/2011 None Full Exam - General 1994 Abdomen abdominal exam Overall: normal bowel sounds 02/17/2011 None Full Exam - General 1994 Musculoskeletal head and neck Overall: cervical spine benign 02/17/2011 None Full Exam - General 1994 Musculoskeletal head and neck Overall: head atraumatic 02/17/2011 None Full Exam - General 1994 Neurologic cranial nerves Overall: crainial nerves 2 - 12 grossly intact 02/17/2011 None Full Exam - General 1994 Psychiatric orientation/consciousness Overall: oriented to person, place and time 02/17/2011 None Full Exam - General 1994 Psychiatric mood and affect Overall: normal mood and affect 02/17/2011 None Full Exam - General 1994 Eyes ophthalmoscopic exam Overall: benign arterioles 01/08/2011 None Full Exam - General 1994 Eyes ophthalmoscopic exam Overall: benign fundi 01/08/2011 None Full Exam - General 1994 Eyes ophthalmoscopic exam Overall: sharp optic disc 01/08/2011 None Full Exam - General 1994 Eyes conjunctiva /eyelids Conjunctiva: erythema 01/08/2011 None Full Exam - General 1994 Eyes conjunctiva /eyelids Conjunctiva: discharge 01/08/2011 None Full Exam - General 1994 Eyes conjunctiva /eyelids Cornea: clear 01/08/2011 None Full Exam - General 1994 Eyes conjunctiva /eyelids Eyelid: benign 01/08/2011 None Full Exam - General 1994 Eyes pupils and irises Overall: pupils equal, round, reactive to light and accomodation 01/08/2011 None Full Exam - General 1994 Ears/Nose/Throat oral cavity/pharynx/larynx Overall: oral mucosa clear 01/08/2011 None Full Exam - General 1994 Constitutional general appearance Overall: well nourished 01/08/2011 None Full Exam - General 1994 Constitutional general appearance Overall: well developed 01/08/2011 None Full Exam - General 1994 Constitutional general appearance Overall: in no acute distress 01/08/2011 None Procedures Procedure Codes Date ADMIN INFLUENZA VIRUS VAC CPT-4: G0008 02/13/2016 FLU VACC 4 BRIGID 3 YRS PLUS IM Formatting Model/CDA Sections, Assigned to/Jacqueline Goodwin SNOMED CT: [id number] CPT-4: 09201Skckgle 02/13/2016 TRIAMCINOLONE ACET INJ NOS CPT-4: J3301 06/29/2015 ADMIN INFLUENZA VIRUS VAC Formatting Model/CDA Sections, Assigned to CPT-4: [id number] 03/22/2015 ADMIN PNEUMOCOCCAL VACCINE Formatting Model/CDA Sections, Assigned to SNOMED CT: [id number] CPT-4: J0811Jfsfbre 03/22/2015 FLU VACC PRSV FREE INC ANTIG CPT-4: 13068 03/22/2015 PNEUMOCOCCAL VACC 13 BRIGID IM Formatting Model/CDA Sections, Assigned to SNOMED CT: [id number] CPT-4: 19356Idixyrn 03/22/2015 TRIAMCINOLONE ACET INJ NOS CPT-4: J3301 08/22/2014 INJ TRIGGER POINT 1/2 MUSCL CPT-4: 38864 08/22/2014 ROUTINE VENIPUNCTURE CPT-4: 91621 11/15/2013 THER/PROPH/DIAG INJ SC/IM CPT-4: 74583 09/02/2013 ROCEPHIN, PER 250 MG CPT-4: J0696 09/02/2013 THER/PROPH/DIAG INJ SC/IM CPT-4: 43118 09/01/2013 ROCEPHIN, PER 250 MG CPT-4: J0696 09/01/2013 URINALYSIS NONAUTO W/O SCOPE CPT-4: 88164 08/31/2013 THER/PROPH/DIAG INJ SC/IM CPT-4: 80766 08/31/2013 URINALYSIS NONAUTO W/O SCOPE CPT-4: 13203 08/23/2013 URINALYSIS NONAUTO W/O SCOPE CPT-4: 08451 03/04/2013 ADMIN INFLUENZA VIRUS VAC CPT-4: G0008 02/02/2013 FLULAVAL VACC, 3 YRS & >, IM CPT-4: Q2036 02/02/2013 TRIAMCINOLONE ACET INJ NOS CPT-4: J3301 10/07/2012 ROUTINE VENIPUNCTURE CPT-4: 47577 10/07/2012 THER/PROPH/DIAG INJ SC/IM CPT-4: 80451 10/07/2012 URINALYSIS NONAUTO W/O SCOPE CPT-4: 28975 10/07/2012 PRESCRIP TRANSMIT VIA ERX SY CPT-4: G8553 10/07/2012 URINALYSIS NONAUTO W/O SCOPE CPT-4: 05733 09/21/2012 PRESCRIP TRANSMIT VIA ERX SY CPT-4: G8553 06/23/2012 ROUTINE VENIPUNCTURE CPT-4: 55136 02/23/2012 ADMIN INFLUENZA VIRUS VAC CPT-4: G0008 02/19/2012 FLULAVAL VACC, 3 YRS & >, IM CPT-4: Q2036 02/19/2012 ADMIN INFLUENZA VIRUS VAC CPT-4: G0008 02/17/2011 FLULAVAL VACC, 3 YRS & >, IM CPT-4: Q2036 02/17/2011 ADMIN PNEUMOCOCCAL VACCINE SNOMED CT: [id number] CPT-4: G0009 02/17/2011 Pneumococcal Polysaccharide Vaccine, 23-Valent, Ad CPT-4: 54792 02/17/2011 Vital Signs Date Vital 05/05/2017 Blood Pressure 1: 132/76 Code : 8480-6 BMI: 26.4 Code : 75719-5 Heart Rate 1 : 77 bpm Height: 5'4" SpO2: 93% Temperature: 36.5 (C) / 97.7 (F) Weight: 155 lbs 04/21/2017 Blood Pressure 1: 140/68 Code : 8480-6 BMI: 26.3 Code : 79474-0 Heart Rate 1 : 77 bpm Height: 5'4" SpO2: 94% Weight: 154 lbs 03/31/2017 Blood Pressure 1: 122/70 Code : 8480-6 BMI: 26.4 Code : 25683-8 Heart Rate 1 : 117 bpm Height: 5'4" SpO2: 93% Temperature: 36.3 (C) / 97.4 (F) Weight: 155 lbs 03/02/2017 Blood Pressure 1: 150/74 Code : 8480-6 BMI: 27.6 Code : 07095-3 Heart Rate 1 : 61 bpm Height: 5'4" SpO2: 96% Weight: 162 lbs 12/16/2016 Blood Pressure 1: 160/74 Code : 8480-6 BMI: 27.8 Code : 12129-2 Heart Rate 1 : 74 bpm Height: 5'4" SpO2: 96% Weight: 163 lbs 11/18/2016 Blood Pressure 1: 140/80 Code : 8480-6 BMI: 28.3 Code : 26342-8 Heart Rate 1 : 76 bpm Height: 5'4" SpO2: 94% Weight: 166 lbs 09/22/2016 Blood Pressure 1: 136/64 Code : 8480-6 BMI: 28.7 Code : 53016-0 Heart Rate 1 : 75 bpm Height: 5'4" SpO2: 96% Weight: 168 lbs 07/29/2016 Blood Pressure 1: 156/82 Code : 8480-6 BMI: 27.9 Code : 71553-4 Heart Rate 1 : 73 bpm Height: 5'4" SpO2: 96% Weight: 163 lbs 8 oz 06/03/2016 Blood Pressure 1: 142/84 Code : 8480-6 BMI: 28.0 Code : 11843-4 Heart Rate 1 : 71 bpm Height: 5'4" SpO2: 97% Weight: 164 lbs 02/13/2016 Blood Pressure 1: 162/80 Code : 8480-6 BMI: 29.2 Code : 92996-6 Heart Rate 1 : 74 bpm Height: 5'4" Weight: 171 lbs 10/17/2015 Blood Pressure 1: 140/80 Code : 8480-6 Blood Pressure 1: 140/80 Code: 8480-6 BMI: 28.5 Code: 58485-6 Heart Rate 1: 71 bpm Height: 5'4" SpO2: 97% Weight: 167 lbs 07/11/2015 Blood Pressure 1: 152/82 Code : 8480-6 BMI: 27.6 Code : 22017-3 Heart Rate 1 : 75 bpm Height: 5'4" SpO2: 96% Weight: 162 lbs 06/29/2015 Blood Pressure 1: 148/78 Code : 8480-6 BMI: 27.3 Code : 59278-4 Heart Rate 1 : 75 bpm Height: 5'4" SpO2: 95% Weight: 160 lbs 04/02/2015 Blood Pressure 1: 158/78 Code : 8480-6 BMI: 27.0 Code : 51172-5 Heart Rate 1 : 66 bpm Height: 5'4" SpO2: 95% Weight: 160 lbs 03/22/2015 Blood Pressure 1: 142/80 Code : 8480-6 BMI: 28.0 Code : 62174-0 Heart Rate 1 : 72 bpm Height: 5'4" SpO2: 98% Weight: 164 lbs 02/22/2015 Blood Pressure 1: 150/76 Code : 8480-6 BMI: 28.0 Code : 82761-6 Heart Rate 1 : 79 bpm Height: 5'4" SpO2: 94% Weight: 164 lbs 12/13/2014 Blood Pressure 1: 136/80 Code : 8480-6 BMI: 28.0 Code : 72625-5 Heart Rate 1 : 64 bpm Height: 5'4" SpO2: 94% Weight: 164 lbs 09/05/2014 Blood Pressure 1: 130/82 Code : 8480-6 BMI: 27.8 Code : 11825-4 Heart Rate 1 : 65 bpm Height: 5'4" Weight: 163 lbs 08/22/2014 Blood Pressure 1: 172/92 Code : 8480-6 Blood Pressure 2: 190/102 Code: 8480-6 BMI: 28.0 Code: 83678-0 Heart Rate 1: 67 bpm Height: 5'4" SpO2: 97% Weight: 164 lbs 05/30/2014 Blood Pressure 1: 144/90 Code : 8480-6 Blood Pressure 2: 140/82 Code: 8480-6 BMI: 27.5 Code: 70783-2 Heart Rate 1: 68 bpm Height: 5'4" Weight: 161 lbs 03/02/2014 Blood Pressure 1: 152/84 Code : 8480-6 BMI: 27.5 Code : 66480-0 Heart Rate 1 : 72 bpm Height: 5'4" Weight: 161 lbs 11/15/2013 Blood Pressure 1: 138/90 Code : 8480-6 BMI: 27.0 Code : 74794-4 Heart Rate 1 : 60 bpm Height: 5'4" Weight: 158 lbs 09/13/2013 Blood Pressure 1: 142/78 Code : 8480-6 BMI: 27.3 Code : 85460-4 Heart Rate 1 : 76 bpm Height: 5'4" Temperature: 36.2 (C) / 97.2 (F) Weight: 160 lbs 08/31/2013 Blood Pressure 1: 180/88 Code : 8480-6 Heart Rate 1: 64 bpm Temperature: 36.7 (C) / 98.0 (F) Weight: 159 lbs 06/29/2013 Blood Pressure 1: 140/74 Code : 8480-6 Heart Rate 1: 64 bpm Weight: 158 lbs 06/15/2013 Blood Pressure 1: 98/58 Code : 8480-6 Heart Rate 1: 64 bpm SpO2: 95% Weight: 157 lbs 05/25/2013 Blood Pressure 1: 94/58 Code : 8480-6 BMI: 27.0 Code : 81231-8 Heart Rate 1 : 56 bpm Height: 5'4" Weight: 158 lbs 03/03/2013 Blood Pressure 1: 134/88 Code : 8480-6 BMI: 27.8 Code : 32388-1 Heart Rate 1 : 64 bpm Height: 5'4" Weight: 163 lbs 02/16/2013 Blood Pressure 1: 128/68 Code : 8480-6 BMI: 28.0 Code : 63194-4 Heart Rate 1 : 64 bpm Height: 5'4" Temperature: 36.9 (C) / 98.4 (F) Weight: 164 lbs 02/02/2013 Blood Pressure 1: 132/78 Code : 8480-6 BMI: 27.5 Code : 22987-8 Height: 5'4" Weight: 161 lbs 10/07/2012 Blood Pressure 1: 138/82 Code : 8480-6 BMI: 27.6 Code : 09432-9 Heart Rate 1 : 60 bpm Height: 5'4" Weight: 162 lbs 08/18/2012 Blood Pressure 1: 158/82 Code : 8480-6 BMI: 27.6 Code : 34962-3 Heart Rate 1 : 56 bpm Height: 5'4" Weight: 162 lbs 07/14/2012 Blood Pressure 1: 184/80 Code : 8480-6 BMI: 29.0 Code : 24207-7 Heart Rate 1 : 56 bpm Height: 5'4" Weight: 170 lbs 06/23/2012 Blood Pressure 1: 196/90 Code : 8480-6 BMI: 28.5 Code : 75245-4 Heart Rate 1 : 72 bpm Height: 5'4" Respiratory Rate: 16 bpm Weight: 167 lbs 02/19/2012 Blood Pressure 1: 154/72 Code : 8480-6 BMI: 28.1 Code : 56793-3 Heart Rate 1 : 56 bpm Height: 5'4" Weight: 165 lbs 08/05/2011 Blood Pressure 1: 190/84 Code : 8480-6 BMI: 26.9 Code : 52753-0 Heart Rate 1 : 52 bpm Height: 5'4" Respiratory Rate: 16 bpm Weight: 157 lbs 8 oz 07/07/2011 Blood Pressure 1: 170/76 Code : 8480-6 BMI: 26.9 Code : 51609-4 Heart Rate 1 : 52 bpm Height: 5'4" Respiratory Rate: 16 bpm Weight: 157 lbs 8 oz 06/16/2011 Blood Pressure 1: 158/70 Code : 8480-6 Heart Rate 1: 56 bpm Respiratory Rate : 16 bpm Weight: 161 lbs 8 oz 02/17/2011 Blood Pressure 1: 170/76 Code : 8480-6 BMI: 27.2 Code : 43818-2 Heart Rate 1 : 70 bpm Height: 5'6" Respiratory Rate: 16 bpm Weight: 166 lbs 01/08/2011 Blood Pressure 1: 163/77 Code : 8480-6 BMI: 27.0 Code : 05335-8 Heart Rate 1 : 66 bpm Height: 5'6" Weight: 166 lbs Functional Status No Functional Status data History of Present Illness Symptom Name Status Result Effective Date Notes sore throat Location diffusely 05/05/2017 None sore throat Quality acute 05/05/2017 None sore throat Quality scratchy 05/05/2017 None sore throat Onset and Resolution sudden in onset 05/05/2017 None sore throat Onset of Symptom 1 weeks ago 05/05/2017 None sore throat Pertinent Findings cough 05/05/2017 None sore throat Pertinent Findings decreased energy level 05/05/2017 None sore throat Pertinent Findings hoarseness 05/05/2017 None sore throat Pertinent Findings lymphadenopathy 05/05/2017 None sore throat Pertinent Findings nasal congestion 05/05/2017 None Hospital Follow Up _ Other: wrist fracture, diarrhea 04/21/2017 None Hospital Follow Up Quality acute 04/21/2017 None Hospital Follow Up Quality improving 04/21/2017 None hypertension Quality chronic 04/21/2017 None hypertension Quality primary hypertension 04/21/2017 None hypertension Onset and Resolution ongoing 04/21/2017 None hypertension Onset of Symptom during adulthood 04/21/2017 None hypertension Blood Pressure Values patient checking blood pressure at home - did not bring in readings 04/21/2017 None hypertension Severity mild 04/21/2017 None hypertension Significant Family History heart disease 04/21/2017 None hypertension Significant Family History hypertension 04/21/2017 None hypertension Alleviating Factors medication 04/21/2017 None hypertension Exacerbating Factors stress 04/21/2017 None hypertension Pertinent Findings Denies anxiety 04/21/2017 None hypertension Pertinent Findings Denies decreased energy 04/21/2017 None hypertension Pertinent Findings Denies dizziness 04/21/2017 None hypertension Pertinent Findings Denies dyspnea 04/21/2017 None hypertension Pertinent Findings edema 04/21/2017 -wears compression stockings hypertension Pertinent Findings palpitations 04/21/2017 None hypertension Pertinent Findings tachycardia 04/21/2017 None palpitations Quality acute 04/21/2017 None palpitations Quality awareness of heartbeat 04/21/2017 None palpitations Quality extra beats 04/21/2017 None palpitations Quality irregular beats 04/21/2017 None palpitations Quality rapid and regular beats 04/21/2017 None palpitations Quality skipped beats 04/21/2017 None palpitations Onset and Resolution sudden in onset 04/21/2017 None palpitations Onset of Symptom 1 days ago 04/21/2017 None palpitations Limitation on Activities does not limit activities 04/21/2017 None palpitations Triggers no known associated factors 04/21/2017 None palpitations Alleviating Factors rest 04/21/2017 None palpitations Exacerbating Factors activity 04/21/2017 None palpitations Pertinent Findings Denies back pain 04/21/2017 None palpitations Pertinent Findings Denies confusion 04/21/2017 None palpitations Pertinent Findings Denies dyspnea 04/21/2017 None palpitations Pertinent Findings Denies lightheadedness 04/21/2017 None palpitations Pertinent Findings Denies sense of impending doom 04/21/2017 None palpitations Pertinent Findings Denies syncope 04/21/2017 None palpitations Pertinent Findings tachycardia 04/21/2017 None palpitations Pertinent Findings Denies tachypnea 04/21/2017 None palpitations Pertinent Findings Denies weakness 04/21/2017 None Hospital Follow Up _ Other: wrist fracture, diarrhea 03/31/2017 None Hospital Follow Up Quality acute 03/31/2017 None Hospital Follow Up Quality improving 03/31/2017 None hypertension Quality chronic 03/31/2017 None hypertension Quality primary hypertension 03/31/2017 None hypertension Onset and Resolution ongoing 03/31/2017 None hypertension Onset of Symptom during adulthood 03/31/2017 None hypertension Blood Pressure Values patient checking blood pressure at home - did not bring in readings 03/31/2017 None hypertension Severity mild 03/31/2017 None hypertension Significant Family History heart disease 03/31/2017 None hypertension Significant Family History hypertension 03/31/2017 None hypertension Alleviating Factors medication 03/31/2017 None hypertension Exacerbating Factors stress 03/31/2017 None hypertension Pertinent Findings Denies dizziness 03/31/2017 None hypertension Pertinent Findings Denies dyspnea 03/31/2017 None hypertension Pertinent Findings edema 03/31/2017 -wears compression stockings palpitations Quality acute 03/31/2017 None palpitations Quality awareness of heartbeat 03/31/2017 None palpitations Quality extra beats 03/31/2017 None palpitations Quality irregular beats 03/31/2017 None palpitations Quality rapid and regular beats 03/31/2017 None palpitations Quality skipped beats 03/31/2017 None palpitations Onset and Resolution sudden in onset 03/31/2017 None palpitations Onset of Symptom 1 days ago 03/31/2017 None palpitations Limitation on Activities does not limit activities 03/31/2017 None palpitations Pertinent Findings Denies back pain 03/31/2017 None palpitations Pertinent Findings Denies confusion 03/31/2017 None palpitations Pertinent Findings Denies dyspnea 03/31/2017 None palpitations Pertinent Findings Denies lightheadedness 03/31/2017 None palpitations Pertinent Findings Denies sense of impending doom 03/31/2017 None palpitations Pertinent Findings Denies syncope 03/31/2017 None palpitations Pertinent Findings tachycardia 03/31/2017 None palpitations Pertinent Findings Denies weakness 03/31/2017 None palpitations Pertinent Findings Denies tachypnea 03/31/2017 None palpitations Triggers no known associated factors 03/31/2017 None palpitations Alleviating Factors rest 03/31/2017 None palpitations Exacerbating Factors activity 03/31/2017 None hypertension Pertinent Findings Denies anxiety 03/31/2017 None hypertension Pertinent Findings Denies decreased energy 03/31/2017 None hypertension Pertinent Findings tachycardia 03/31/2017 None hypertension Pertinent Findings palpitations 03/31/2017 None hypertension Quality chronic 03/02/2017 None hypertension Onset and Resolution ongoing 03/02/2017 None hypertension Onset of Symptom during adulthood 03/02/2017 None hypertension Severity mild 03/02/2017 None hypertension Significant Family History heart disease 03/02/2017 None hypertension Significant Family History hypertension 03/02/2017 None hypertension Alleviating Factors medication 03/02/2017 None hypertension Exacerbating Factors stress 03/02/2017 None hypertension Pertinent Findings Denies dizziness 03/02/2017 None hypertension Pertinent Findings Denies dyspnea 03/02/2017 None hypertension Pertinent Findings edema 03/02/2017 -wears compression stockings Hospital Follow Up _ Other: wrist fracture, diarrhea 03/02/2017 None Hospital Follow Up Quality acute 03/02/2017 None Hospital Follow Up Quality improving 03/02/2017 None hypertension Blood Pressure Values patient checking blood pressure at home - did not bring in readings 03/02/2017 None hypertension Quality primary hypertension 03/02/2017 None hypertension Quality chronic 12/16/2016 None hypertension Onset and Resolution ongoing 12/16/2016 None hypertension Onset of Symptom during adulthood 12/16/2016 None hypertension Blood Pressure Values pt checking blood pressure - see scanned document 12/16/2016 None hypertension Severity mild 12/16/2016 None hypertension Significant Family History heart disease 12/16/2016 None hypertension Significant Family History hypertension 12/16/2016 None hypertension Alleviating Factors medication 12/16/2016 None hypertension Exacerbating Factors stress 12/16/2016 None hypertension Pertinent Findings Denies dizziness 12/16/2016 None hypertension Pertinent Findings Denies dyspnea 12/16/2016 None hypertension Pertinent Findings Denies edema 12/16/2016 None back pain Location lumbar-sacral spine 12/16/2016 reports spinal stenosis back pain Quality intermittent 12/16/2016 "somedays better than others" back pain Onset and Resolution ongoing 12/16/2016 -reports that she has to watch what she does back pain Alleviating Factors rest 12/16/2016 None back pain Exacerbating Factors activity 12/16/2016 None hypothyroid Onset and Resolution ongoing 12/16/2016 None hypothyroid Alleviating Factors medication 12/16/2016 None edema Quality intermittent 12/16/2016 None edema Quality painful 12/16/2016 None edema Onset and Resolution sudden in onset 12/16/2016 None edema Onset of Symptom 3 weeks ago 12/16/2016 None edema Location on both legs 12/16/2016 None hypertension Quality chronic 11/18/2016 None hypertension Onset and Resolution ongoing 11/18/2016 None hypertension Onset of Symptom during adulthood 11/18/2016 None hypertension Severity mild 11/18/2016 None hypertension Significant Family History heart disease 11/18/2016 None hypertension Significant Family History hypertension 11/18/2016 None hypertension Alleviating Factors medication 11/18/2016 None hypertension Exacerbating Factors stress 11/18/2016 None hypertension Pertinent Findings Denies dizziness 11/18/2016 None hypertension Pertinent Findings Denies dyspnea 11/18/2016 None hypertension Pertinent Findings Denies edema 11/18/2016 None back pain Location lumbar-sacral spine 11/18/2016 reports spinal stenosis back pain Quality intermittent 11/18/2016 "somedays better than others" back pain Onset and Resolution ongoing 11/18/2016 -reports that she has to watch what she does back pain Alleviating Factors rest 11/18/2016 None back pain Exacerbating Factors activity 11/18/2016 None hypothyroid Onset and Resolution ongoing 11/18/2016 None hypothyroid Alleviating Factors medication 11/18/2016 None hypertension Blood Pressure Values pt checking blood pressure - see scanned document 11/18/2016 None edema Onset and Resolution sudden in onset 09/22/2016 None edema Onset of Symptom 1 months ago 09/22/2016 None edema Frequency of Episodes daily 09/22/2016 None edema Location on both legs 09/22/2016 None edema Quality constant 09/22/2016 None hypertension Quality chronic 07/29/2016 None hypertension Onset and Resolution ongoing 07/29/2016 None hypertension Onset of Symptom during adulthood 07/29/2016 None hypertension Blood Pressure Values patient checking blood pressure at home - did not bring in readings 07/29/2016 (Checks occasionally) hypertension Severity mild 07/29/2016 None hypertension Significant Family History heart disease 07/29/2016 None hypertension Significant Family History hypertension 07/29/2016 None hypertension Alleviating Factors medication 07/29/2016 None hypertension Exacerbating Factors stress 07/29/2016 None hypertension Pertinent Findings Denies dizziness 07/29/2016 None hypertension Pertinent Findings Denies dyspnea 07/29/2016 None hypertension Pertinent Findings Denies edema 07/29/2016 None back pain Location lumbar-sacral spine 07/29/2016 reports spinal stenosis back pain Quality intermittent 07/29/2016 "somedays better than others" back pain Onset and Resolution ongoing 07/29/2016 -reports that she has to watch what she does back pain Alleviating Factors rest 07/29/2016 None back pain Exacerbating Factors activity 07/29/2016 None hypothyroid Onset and Resolution ongoing 07/29/2016 None hypothyroid Alleviating Factors medication 07/29/2016 None hypertension Quality chronic 06/03/2016 None hypertension Onset and Resolution ongoing 06/03/2016 None hypertension Onset of Symptom during adulthood 06/03/2016 None hypertension Blood Pressure Values patient checking blood pressure at home - did not bring in readings 06/03/2016 (Checks occasionally) hypertension Severity mild 06/03/2016 None hypertension Significant Family History heart disease 06/03/2016 None hypertension Significant Family History hypertension 06/03/2016 None hypertension Pertinent Findings Denies dizziness 06/03/2016 None hypertension Pertinent Findings Denies dyspnea 06/03/2016 None back pain Location lumbar-sacral spine 06/03/2016 reports spinal stenosis back pain Quality intermittent 06/03/2016 "somedays better than others" back pain Onset and Resolution ongoing 06/03/2016 -reports that she has to watch what she does hypertension Alleviating Factors medication 06/03/2016 None hypertension Exacerbating Factors stress 06/03/2016 None hypertension Pertinent Findings edema 06/03/2016 -mainly in the left leg and ankle hypothyroid Onset and Resolution ongoing 06/03/2016 None hypothyroid Alleviating Factors medication 06/03/2016 None back pain Alleviating Factors rest 06/03/2016 None back pain Exacerbating Factors activity 06/03/2016 None spasms/spasticity Location on both legs 06/03/2016 None spasms/spasticity Quality acute 06/03/2016 None spasms/spasticity Quality intermittent 06/03/2016 None spasms/spasticity Onset and Resolution ongoing 06/03/2016 None spasms/spasticity Onset of Symptom 1 months ago 06/03/2016 None spasms/spasticity Timing of Episodes at night 06/03/2016 None spasms/spasticity Triggers no known associated factors 06/03/2016 None hypertension Quality chronic 02/13/2016 None hypertension Onset and Resolution ongoing 02/13/2016 None hypertension Onset of Symptom during adulthood 02/13/2016 None hypertension Blood Pressure Values patient checking blood pressure at home - did not bring in readings 02/13/2016 133/68 - LAST BLOOD PRESSURE CHECKED AT HOME hypertension Severity mild 02/13/2016 None hypertension Significant Family History heart disease 02/13/2016 None hypertension Significant Family History hypertension 02/13/2016 None hypertension Triggers stress 02/13/2016 None hypertension Exacerbating Factors change in dietary habits 02/13/2016 None hypertension Pertinent Findings Denies anxiety 02/13/2016 None hypertension Pertinent Findings Denies confusion 02/13/2016 None hypertension Pertinent Findings Denies dizziness 02/13/2016 None hypertension Pertinent Findings Denies dyspnea 02/13/2016 None back pain Location lumbar-sacral spine 02/13/2016 reports spinal stenosis back pain Quality intermittent 02/13/2016 somedays worse than others back pain Onset and Resolution ongoing 02/13/2016 reports that she has to watch what she does- yesterday cleaned out deep freeze and was bending over a lot neck pain Location in the lower cervical/ shoulders area 10/17/2015 None neck pain Quality dull 10/17/2015 None neck pain Quality squeezing 10/17/2015 None neck pain Onset and Resolution gradual in onset 10/17/2015 None neck pain Onset and Resolution ongoing 10/17/2015 None neck pain Onset of Symptom 2 months ago 10/17/2015 None neck pain Limitation on Activities moderately limits activities 10/17/2015 None hypertension Quality chronic 10/17/2015 None hypertension Onset and Resolution ongoing 10/17/2015 None hypertension Onset of Symptom during adulthood 10/17/2015 None hypertension Blood Pressure Values patient checking blood pressure at home - did not bring in readings 10/17/2015 None hypertension Severity mild 10/17/2015 None hypertension Significant Family History heart disease 10/17/2015 None hypertension Significant Family History hypertension 10/17/2015 None hypertension Triggers stress 10/17/2015 None hypertension Exacerbating Factors change in dietary habits 10/17/2015 None hypertension Pertinent Findings Denies anxiety 10/17/2015 None hypertension Pertinent Findings Denies confusion 10/17/2015 None hypertension Pertinent Findings Denies dizziness 10/17/2015 None hypertension Pertinent Findings Denies dyspnea 10/17/2015 None back pain Location lumbar-sacral spine 10/17/2015 reports spinal stenosis back pain Quality intermittent 10/17/2015 somedays worse than others back pain Onset and Resolution ongoing 10/17/2015 reports that she has to watch what she does- yesterday cleaned out deep freeze and was bending over a lot knee pain Location on the left 10/17/2015 None knee pain Quality chronic 10/17/2015 None neck pain Location in the lower cervical/ shoulders area 07/11/2015 None neck pain Quality dull 07/11/2015 None neck pain Quality squeezing 07/11/2015 None neck pain Onset and Resolution gradual in onset 07/11/2015 None neck pain Onset and Resolution ongoing 07/11/2015 None neck pain Onset of Symptom 2 months ago 07/11/2015 None neck pain Limitation on Activities moderately limits activities 07/11/2015 None hypertension Quality chronic 07/11/2015 None hypertension Onset and Resolution ongoing 07/11/2015 None hypertension Onset of Symptom during adulthood 07/11/2015 None hypertension Blood Pressure Values patient checking blood pressure at home - did not bring in readings 07/11/2015 None hypertension Severity mild 07/11/2015 None hypertension Significant Family History heart disease 07/11/2015 None hypertension Significant Family History hypertension 07/11/2015 None hypertension Triggers stress 07/11/2015 None hypertension Exacerbating Factors change in dietary habits 07/11/2015 None hypertension Pertinent Findings Denies anxiety 07/11/2015 None hypertension Pertinent Findings Denies confusion 07/11/2015 None hypertension Pertinent Findings Denies dizziness 07/11/2015 None hypertension Pertinent Findings Denies dyspnea 07/11/2015 None back pain Location lumbar-sacral spine 07/11/2015 reports spinal stenosis back pain Quality intermittent 07/11/2015 somedays worse than others back pain Onset and Resolution ongoing 07/11/2015 reports that she has to watch what she does- yesterday cleaned out deep freeze and was bending over a lot knee pain Location on the left 07/11/2015 None knee pain Quality chronic 07/11/2015 None cough Location in the lung 06/29/2015 None cough Quality hacking 06/29/2015 None cough Quality productive 06/29/2015 None cough Onset and Resolution sudden in onset 06/29/2015 None cough Onset of Symptom 4 days ago 06/29/2015 None cough Pertinent Findings chest discomfort 06/29/2015 None cough Pertinent Findings fever 06/29/2015 None cough Pertinent Findings hoarseness 06/29/2015 None cough Pertinent Findings nasal congestion 06/29/2015 None sinus congestion Onset and Resolution sudden in onset 06/29/2015 None sinus congestion Onset of Symptom 4 days ago 06/29/2015 None sinus congestion Pertinent Findings cough 06/29/2015 None sinus congestion Pertinent Findings fever 06/29/2015 None earache Location both ears 06/29/2015 None earache Onset and Resolution sudden in onset 06/29/2015 None earache Onset of Symptom 4 days ago 06/29/2015 None knee pain Location on the left 04/02/2015 None knee pain Quality sharp pain 04/02/2015 None knee pain Quality constant 04/02/2015 None knee pain Quality worsening 04/02/2015 None knee pain Onset and Resolution sudden in onset 04/02/2015 None knee pain Onset of Symptom 4 days ago 04/02/2015 None knee pain Frequency of Episodes daily 04/02/2015 None knee pain Mechanism of injury unknown 04/02/2015 None knee pain Pertinent Findings limping 04/02/2015 None knee pain Pertinent Findings pain with movement 04/02/2015 None knee pain Pertinent Findings stiffness 04/02/2015 None knee pain Pertinent Findings swelling 04/02/2015 None hip pain Location on the left 04/02/2015 None hip pain Quality constant 04/02/2015 None hip pain Onset and Resolution sudden in onset 04/02/2015 None hip pain Onset of Symptom 4 days ago 04/02/2015 None hip pain Frequency of Episodes daily 04/02/2015 None hip pain Pertinent Findings limping 04/02/2015 None neck pain Location in the lower cervical/ shoulders area 03/22/2015 None neck pain Quality dull 03/22/2015 None neck pain Quality squeezing 03/22/2015 None neck pain Onset and Resolution gradual in onset 03/22/2015 None neck pain Onset and Resolution ongoing 03/22/2015 None neck pain Onset of Symptom 2 months ago 03/22/2015 None neck pain Limitation on Activities moderately limits activities 03/22/2015 None hypertension Quality chronic 03/22/2015 None hypertension Onset and Resolution ongoing 03/22/2015 None hypertension Onset of Symptom during adulthood 03/22/2015 None hypertension Blood Pressure Values patient checking blood pressure at home - did not bring in readings 03/22/2015 None hypertension Severity mild 03/22/2015 None hypertension Significant Family History heart disease 03/22/2015 None hypertension Significant Family History hypertension 03/22/2015 None hypertension Triggers stress 03/22/2015 None hypertension Exacerbating Factors change in dietary habits 03/22/2015 None hypertension Pertinent Findings Denies anxiety 03/22/2015 None hypertension Pertinent Findings Denies confusion 03/22/2015 None back pain Location lumbar-sacral spine 03/22/2015 reports spinal stenosis back pain Quality intermittent 03/22/2015 somedays worse than others back pain Onset and Resolution ongoing 03/22/2015 reports that she has to watch what she does- yesterday cleaned out deep freeze and was bending over a lot hypertension Pertinent Findings Denies dizziness 03/22/2015 None hypertension Pertinent Findings Denies dyspnea 03/22/2015 None neck pain Onset of Symptom 2 months ago 02/22/2015 None neck pain Limitation on Activities moderately limits activities 02/22/2015 None neck pain Onset and Resolution gradual in onset 02/22/2015 None neck pain Onset and Resolution ongoing 02/22/2015 None neck pain Location in the lower cervical/ shoulders area 02/22/2015 None neck pain Quality dull 02/22/2015 None neck pain Quality squeezing 02/22/2015 None hypertension Quality chronic 02/22/2015 None hypertension Onset and Resolution ongoing 02/22/2015 None hypertension Onset of Symptom during adulthood 02/22/2015 None hypertension Blood Pressure Values patient checking blood pressure at home - did not bring in readings 02/22/2015 None hypertension Severity mild 02/22/2015 None hypertension Significant Family History heart disease 02/22/2015 None hypertension Significant Family History hypertension 02/22/2015 None hypertension Triggers stress 02/22/2015 None hypertension Exacerbating Factors change in dietary habits 02/22/2015 None hypertension Pertinent Findings Denies anxiety 02/22/2015 None hypertension Pertinent Findings Denies confusion 02/22/2015 None back pain Location lumbar-sacral spine 02/22/2015 reports spinal stenosis back pain Quality intermittent 02/22/2015 somedays worse than others back pain Onset and Resolution ongoing 02/22/2015 reports that she has to watch what she does- yesterday cleaned out deep freeze and was bending over a lot hypertension Quality chronic 12/13/2014 None hypertension Onset and Resolution ongoing 12/13/2014 None hypertension Onset of Symptom during adulthood 12/13/2014 None hypertension Blood Pressure Values patient checking blood pressure at home - did not bring in readings 12/13/2014 None hypertension Severity mild 12/13/2014 None hypertension Significant Family History heart disease 12/13/2014 None hypertension Significant Family History hypertension 12/13/2014 None hypertension Triggers stress 12/13/2014 None hypertension Exacerbating Factors change in dietary habits 12/13/2014 None hypertension Pertinent Findings Denies anxiety 12/13/2014 None hypertension Pertinent Findings Denies confusion 12/13/2014 None neck pain Location in the lower cervical/ shoulders area 12/13/2014 None neck pain Onset of Symptom _ months ago 12/13/2014 octavio back pain Location lumbar-sacral spine 12/13/2014 reports spinal stenosis back pain Onset and Resolution ongoing 12/13/2014 reports that she has to watch what she does- yesterday cleaned out deep freeze and was bending over a lot back pain Quality intermittent 12/13/2014 somedays worse than others neck pain Location on the left 09/05/2014 States pain has improved. neck pain Quality aching 09/05/2014 None neck pain Quality constant 09/05/2014 None neck pain Alleviating Factors heat application 09/05/2014 None shoulder pain Location on the left shoulder 09/05/2014 pain from neck, behind ear on left down to left shoulder shoulder pain Quality aching 09/05/2014 None shoulder pain Quality tenderness 09/05/2014 None shoulder pain Quality worsening 09/05/2014 None shoulder pain Onset of Symptom 2 weeks ago 09/05/2014 constant pain neck pain Onset and Resolution resolved 09/05/2014 None neck pain Location on the left 08/22/2014 reports she was having a little bit of neck pain the last time she was here, but it is worse neck pain Onset and Resolution ongoing 08/22/2014 None neck pain Quality aching 08/22/2014 feels like someone is pinching her reports takes a pain med before she goes to bed and wakes up with it hurting. Pain wakes her if she doesnt use pain med neck pain Quality constant 08/22/2014 None shoulder pain Location on the left shoulder 08/22/2014 pain from neck, behind ear on left down to left shoulder shoulder pain Onset of Symptom 2 weeks ago 08/22/2014 constant pain shoulder pain Quality aching 08/22/2014 None shoulder pain Quality tenderness 08/22/2014 None shoulder pain Quality worsening 08/22/2014 None neck pain Alleviating Factors heat application 08/22/2014 None hypertension Quality chronic 05/30/2014 None hypertension Onset and Resolution ongoing 05/30/2014 None hypertension Onset of Symptom during adulthood 05/30/2014 None hypertension Blood Pressure Values patient checking blood pressure at home - did not bring in readings 05/30/2014 None hypertension Severity mild 05/30/2014 None hypertension Significant Family History heart disease 05/30/2014 None hypertension Significant Family History hypertension 05/30/2014 None hypertension Triggers stress 05/30/2014 None hypertension Exacerbating Factors change in dietary habits 05/30/2014 None hypertension Pertinent Findings Denies anxiety 05/30/2014 None hypertension Pertinent Findings Denies confusion 05/30/2014 None neck pain Location in the lower cervical/ shoulders area 05/30/2014 None neck pain Onset of Symptom _ weeks ago 05/30/2014 first part of May hypertension Quality chronic 03/02/2014 None hypertension Onset and Resolution ongoing 03/02/2014 None hypertension Onset of Symptom during adulthood 03/02/2014 None hypertension Severity mild 03/02/2014 None hypertension Significant Family History heart disease 03/02/2014 None hypertension Significant Family History hypertension 03/02/2014 None hypertension Triggers stress 03/02/2014 None hypertension Exacerbating Factors change in dietary habits 03/02/2014 None hypertension Pertinent Findings Denies anxiety 03/02/2014 None hypertension Pertinent Findings Denies confusion 03/02/2014 None hypertension Blood Pressure Values patient checking blood pressure at home - did not bring in readings 03/02/2014 None hypertension Quality chronic 11/15/2013 None hypertension Onset and Resolution ongoing 11/15/2013 None hypertension Blood Pressure Values not checking blood pressure at home 11/15/2013 None hypertension Onset of Symptom during adulthood 11/15/2013 None hypertension Blood Pressure Values pt checking blood pressure - see scanned document 11/15/2013 None hypertension Significant Family History heart disease 11/15/2013 None hypertension Significant Family History hypertension 11/15/2013 None hypertension Triggers stress 11/15/2013 None hypertension Exacerbating Factors change in dietary habits 11/15/2013 None hypertension Pertinent Findings anxiety 11/15/2013 None hypertension Pertinent Findings Denies confusion 11/15/2013 None hypertension Severity mild 11/15/2013 None hematuria Quality improving 09/13/2013 None hematuria Pertinent Findings Denies altered mental status 09/13/2013 None hematuria Onset and Resolution ongoing 09/13/2013 None hematuria Severity mild 09/13/2013 None hematuria Triggers no known associated factors 09/13/2013 None hematuria Onset of Symptom 1 days ago 08/31/2013 None hematuria Quality acute 08/31/2013 None hematuria Onset and Resolution sudden in onset 08/31/2013 None hematuria Severity mild 08/31/2013 None hematuria Pertinent Findings Denies altered mental status 08/31/2013 None hematuria Pertinent Findings Denies back pain 08/31/2013 None hematuria Pertinent Findings bladder pain 08/31/2013 None skin lesion Quality acute 06/29/2013 Pt with recent pacemaker battery change, and has incision that is healing. Pt was worried about the lesion and if it is healing well or not. skin lesion Onset and Resolution ongoing 06/29/2013 None skin lesion Onset of Symptom during adulthood 06/29/2013 None skin lesion Pertinent Findings Denies cough 06/29/2013 None hypertension Quality chronic 06/15/2013 None hypertension Onset and Resolution ongoing 06/15/2013 None hypertension Onset of Symptom during adulthood 06/15/2013 None hypertension Blood Pressure Values pt checking blood pressure - see scanned document 06/15/2013 None hypertension Significant Family History heart disease 06/15/2013 None hypertension Significant Family History hypertension 06/15/2013 None hypertension Triggers stress 06/15/2013 None hypertension Exacerbating Factors change in dietary habits 06/15/2013 None hypertension Pertinent Findings anxiety 06/15/2013 None hypertension Pertinent Findings Denies confusion 06/15/2013 None Hospital Follow Up _ pneumonia 05/25/2013 None Hospital Follow Up Quality acute illness 05/25/2013 None Hospital Follow Up Quality improving 05/25/2013 None Hospital Follow Up Severity moderate 05/25/2013 None Hospital Follow Up Pertinent Findings Denies pain 05/25/2013 None Hospital Follow Up Pertinent Findings Denies fever 05/25/2013 None Hospital Follow Up Quality acute illness 03/03/2013 None Hospital Follow Up _ Other: _ 03/03/2013 neck swelling. swelling has gone down and patient states she is much better. Hospital Follow Up Pertinent Findings Denies Other: iv antibiotics, then oral antibiotics in hospital 03/03/2013 None Hospital Follow Up Alleviating Factors medication 03/03/2013 None Hospital Follow Up Severity moderate 03/03/2013 None facial swelling Location left side of neck 02/16/2013 complains of earache also. just started this morning. facial swelling Quality acute 02/16/2013 None facial swelling Quality tender 02/16/2013 None facial swelling Severity severe 02/16/2013 None facial swelling Pertinent Findings Denies cough 02/16/2013 None facial swelling Pertinent Findings skin changes 02/16/2013 None facial swelling Pertinent Findings swollen glands 02/16/2013 None facial swelling Triggers no known associated factors 02/16/2013 None neck pain Location in the lower cervical/ shoulders area 02/02/2013 None neck pain Onset and Resolution sudden in onset 02/02/2013 None neck pain Quality dull 02/02/2013 None neck pain Onset of Symptom 1 weeks ago 02/02/2013 None neck pain Onset and Resolution worse during the day 02/02/2013 None neck pain Pertinent Findings Denies extremity weakness 02/02/2013 None neck pain Pertinent Findings Denies extremity numbness 02/02/2013 None neck pain Pertinent Findings Denies limited range of neck motion 02/02/2013 None neck pain Pertinent Findings Denies muscle spasms 02/02/2013 None neck pain Triggers no known associated factors 02/02/2013 None edema Quality acute None edema Onset of Symptom 1 months ago 02/02/2013 None edema Onset and Resolution gradual in onset 02/02/2013 None edema Location on both legs 02/02/2013 None edema Pertinent Findings back pain 02/02/2013 None edema Pertinent Findings Denies limb redness 02/02/2013 None edema Triggers no known associated factors 02/02/2013 None pain Location-Major on the upper body 10/07/2012 None pain Location-Head/Neck on the right side of the neck 10/07/2012 None pain Location-Head/Neck on the left side of the neck 10/07/2012 None pain Location-Extremities on the left upper arm 10/07/2012 None pain Quality intermittent 10/07/2012 None pain Quality worsening 10/07/2012 None pain Quality recurrent 10/07/2012 None pain Quality aching None pain Quality painful 10/07/2012 None pain Quality uncomfortable 10/07/2012 None pain Onset and Resolution ongoing 10/07/2012 None pain Limitation on Activities moderately limits activities 10/07/2012 None pain Pertinent Findings pain 10/07/2012 None pain Pertinent Findings tenderness 10/07/2012 None pain Severity moderate 10/07/2012 None pain Severity worsening 10/07/2012 None pain Prior Treatments previously untreated 10/07/2012 None pain Triggers no known triggers 10/07/2012 None hypertension Quality chronic 08/18/2012 None hypertension Onset and Resolution ongoing 08/18/2012 None hypertension Blood Pressure Values pt checking blood pressure - see scanned document 08/18/2012 None hypertension Triggers stress 08/18/2012 None hypertension Exacerbating Factors change in dietary habits 08/18/2012 None hypertension Pertinent Findings anxiety 08/18/2012 None hypertension Pertinent Findings Denies confusion 08/18/2012 None hypertension Onset of Symptom during adulthood 08/18/2012 None hypertension Significant Family History heart disease 08/18/2012 None hypertension Significant Family History hypertension 08/18/2012 None hypertension Quality chronic 07/14/2012 None hypertension Onset and Resolution ongoing 07/14/2012 None hypertension Blood Pressure Values pt checking blood pressure - see scanned document 07/14/2012 None back pain Location lumbar-sacral spine 07/14/2012 None back pain Quality chronic 07/14/2012 None back pain Quality stable 07/14/2012 None hypertension Severity mild 07/14/2012 no headaches, no dizziness hypertension Triggers stress 07/14/2012 None hypertension Exacerbating Factors change in dietary habits 07/14/2012 None hypertension Pertinent Findings anxiety 07/14/2012 None hypertension Pertinent Findings Denies confusion 07/14/2012 None hypertension Pertinent Findings Denies decreased energy 07/14/2012 None hypertension Pertinent Findings Denies dizziness 07/14/2012 None hypertension Quality chronic 06/23/2012 None hypertension Onset and Resolution ongoing 06/23/2012 None hypertension Blood Pressure Values not checking blood pressure at home 06/23/2012 None blood pressure followup Quality chronic 02/19/2012 None blood pressure followup Onset and Resolution ongoing 02/19/2012 None blood pressure followup Onset of Symptom during adulthood 02/19/2012 None blood pressure followup Blood Pressure Values Stage 0:SBP 130-139 mmHg / DBP 85-89 mmHg 02/19/2012 at home blood pressures are " normal" blood pressure followup Severity mild 02/19/2012 None blood pressure followup Significant Medical Conditions cardiac disease 02/19/2012 None blood pressure followup Triggers stress 02/19/2012 None blood pressure followup Alleviating Factors medication 02/19/2012 None blood pressure followup Exacerbating Factors change in dietary habits 02/19/2012 None blood pressure followup Exacerbating Factors stress 02/19/2012 None back pain Location in the right lower back area 08/05/2011 None back pain Quality chronic 08/05/2011 None back pain Quality aching 08/05/2011 None blood pressure followup Quality chronic 08/05/2011 None blood pressure followup Blood Pressure Values Stage 2:SBP 160-179 mmHg / DBP 100-109 mmHg 08/05/2011 None blood pressure followup Severity mild 08/05/2011 None blood pressure followup Significant Medical Conditions cardiac disease 08/05/2011 None blood pressure followup Triggers stress 08/05/2011 and pain from his back blood pressure followup Exacerbating Factors stress 08/05/2011 None blood pressure followup Pertinent Findings anxiety 08/05/2011 None blood pressure followup Pertinent Findings Denies lethargy 08/05/2011 None back pain Onset and Resolution worse during the day 08/05/2011 only relief is at night when she is sleeping, as soon as she gets up out of bed, she has pain all day long back pain Triggers lifting 08/05/2011 None back pain Triggers twisting 08/05/2011 None back pain Triggers activity 08/05/2011 None back pain Triggers exertion 08/05/2011 None back pain Alleviating Factors rest 08/05/2011 None back pain Exacerbating Factors activity 08/05/2011 None back pain Alleviating Factors medication 08/05/2011 None back pain Severity severe 08/05/2011 None back pain Pertinent Findings post-trauma 08/05/2011 None back pain Pertinent Findings weakness 08/05/2011 None back pain Location lumbar-sacral spine 06/16/2011 None back pain Quality sharp 06/16/2011 None back pain Onset and Resolution sudden in onset 06/16/2011 None sore throat Location diffusely 06/16/2011 None sore throat Quality scratchy 06/16/2011 None sore throat Quality sharp 06/16/2011 None sore throat Onset and Resolution sudden in onset 06/16/2011 None sore throat Onset of Symptom 1 days ago 06/16/2011 None knee pain Frequency of Episodes decreasing 06/16/2011 None knee pain Severity moderate 06/16/2011 None knee pain Mechanism of injury fall onto knee 06/16/2011 None knee pain Alleviating Factors NSAID's 06/16/2011 -tylenol or hydrocodone back pain Location in the midline of in the lower back area 06/16/2011 None back pain Location in the midline of in the middle back area 06/16/2011 None back pain Onset and Resolution ongoing 06/16/2011 None back pain Onset of Symptom 1 weeks ago 06/16/2011 None back pain Limitation on Activities does not limit activities 06/16/2011 None back pain Frequency of Episodes unchanged 06/16/2011 None back pain Triggers activity 06/16/2011 None back pain Alleviating Factors rest 06/16/2011 None back pain Alleviating Factors medication 06/16/2011 None back pain Radiating does not radiate 06/16/2011 None back pain Severity moderate 06/16/2011 None sore throat Onset and Resolution ongoing 06/16/2011 None sore throat Frequency of Episodes increasing 06/16/2011 None sore throat Triggers no known associated factors 06/16/2011 None knee pain Location in the anterior region 06/16/2011 None knee pain Location directly on the patella 06/16/2011 None knee pain Quality tenderness 06/16/2011 None knee pain Quality throbbing 06/16/2011 None knee pain Quality acute 06/16/2011 None knee pain Onset of Symptom 1 weeks ago 06/16/2011 after fall blood pressure followup Quality chronic 02/17/2011 None blood pressure followup Onset and Resolution ongoing 02/17/2011 None blood pressure followup Onset of Symptom during adulthood 02/17/2011 None blood pressure followup Blood Pressure Values Stage 0:SBP 130-139 mmHg / DBP 85-89 mmHg 02/17/2011 at home blood pressures are " normal" blood pressure followup Severity mild 02/17/2011 None blood pressure followup Significant Medical Conditions cardiac disease 02/17/2011 None blood pressure followup Triggers stress 02/17/2011 None blood pressure followup Alleviating Factors medication 02/17/2011 None blood pressure followup Exacerbating Factors stress 02/17/2011 None blood pressure followup Exacerbating Factors change in dietary habits 02/17/2011 None eye pain Location in the right eye 01/08/2011 None eye pain Quality sharp 01/08/2011 None eye pain Quality worsening 01/08/2011 None eye pain Onset of Symptom 3 days ago 01/08/2011 None eye pain Alleviating Factors activity. 01/08/2011 Cold compress to the eye Advance Directives No Advance Directive data Encounters Encounter Performer Location Codes Date ([id number]) [id number] EST. PATIENT, LEVEL III Diagnosis: Cough[ICD10: R05] Diagnosis: Acute laryngopharyngitis[ICD10: J06.0] Jena Blas MD, [facility] CPT-4: 83401 05/05/2017 ([id number] EST. PATIENT, LEVEL III Diagnosis: Essential (primary) hypertension[ICD10: I10] Diagnosis: Atrophy of thyroid (acquired)[ICD10: E03.4] [facility] CPT-4: 47312 04/21/2017 ([id number] 52878 EST. PATIENT, LEVEL III Diagnosis: Essential (primary) hypertension[ICD10: I10] [facility] CPT-4: 94959 03/31/2017 ([id number]) 52974 EST. 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 PATIENT, LEVEL III Diagnosis: Atrophy of thyroid (acquired)[ICD10: E03.4] Diagnosis: Chronic kidney disease, stage 4 (severe)[ICD10: N18.4] Jena Blas MD [facility] CPT-4: 78215 12/16/2016 ([id number]) 14170 EST. 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 PATIENT, LEVEL IV Diagnosis: Localized edema[ICD10: R60.0] Tierney Blas MD [facility] CPT-4 : 40840 09/22/2016 ([id number]) 72673 EST. PATIENT, LEVEL IV Diagnosis: Essential (primary) hypertension[ICD10: I10] Diagnosis: Atrophy of thyroid (acquired)[ICD10: E03.4] Jena Blas MD [facility] CPT-4: 30251 07/29/2016 ([id number]) 42090 EST. PATIENT, LEVEL IV Diagnosis: Essential (primary) hypertension[ICD10: I10] Diagnosis: Chronic kidney disease, stage 3 (moderate)[ICD10: N18.3] Diagnosis: Localized edema[ICD10: R60.0] Jena Blas MD, [facility] CPT- 4: 73961 06/03/2016 ([id number]) 62331 EST. PATIENT, LEVEL III Diagnosis: Essential (primary) hypertension[ICD10: I10] Diagnosis: Encounter for immunization[ICD10: Z23] Diagnosis: Low back pain[ICD10: M54.5] Jena Blas MD, [facility] CPT- 4: 62244 02/13/2016 ([id number]) 71375 EST. PATIENT, LEVEL III Diagnosis: Hypothyroidism, unspecified[ICD10: E03.9] Diagnosis: Essential (primary) hypertension[ICD10: I10] Diagnosis: Low back pain[ICD10: M54.5] Jena Blas MD, [facility] CPT- 4: 76110 10/17/2015 ([id number]) 88980 EST. PATIENT, LEVEL IV Diagnosis: Essential (primary) hypertension[ICD10: I10] Diagnosis: Hypothyroidism, unspecified[ICD10: E03.9] Diagnosis: Other abnormal glucose[ICD10: R73.09] Jena Blas MD, [facility] CPT-4: 23739 07/11/2015 ([id number]) 32793 EST. PATIENT, LEVEL III Diagnosis: Acute recurrent maxillary sinusitis[ICD10: J01.01] Diagnosis: Cough[ICD10: R05] Louisa Blas MD, [facility] CPT-4: 36465 06/29/2015 42559 EST. PATIENT, LEVEL IV Diagnosis: Pain in left knee[ICD10: M25.562] Diagnosis: Pain in left leg[ICD10: M79.605] Tierney Blas MD, [facility] CPT- 4: 44652 04/02/2015 ([id number]) 43259 EST. PATIENT, LEVEL IV Diagnosis: Cervicalgia[ICD10: M54.2] Diagnosis: Spinal stenosis, lumbar region[ICD10: M48.06] Jena Blas MD, [facility] CPT-4: 75494 03/22/2015 75686 EST. 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 PATIENT, LEVEL IV Diagnosis: ESSENTIAL HYPERTENSION[ICD9: 401.9] Diagnosis: Cervicalgia[ICD9: 723.1] Diagnosis: LUMBAGO[ICD9: 724.2] Diagnosis: DEPRESSIVE DISORDER NEC[ICD9: 311] Jena Blas MD, [facility] CPT-4: 10627 12/13/2014 ([id number]) 55547 EST. PATIENT, LEVEL III Diagnosis: Neck pain[ICD9: 723.1] Jena Blas MD [facility] CPT-4: 99408 09/05/2014 ([id number]) 63903 EST. PATIENT, LEVEL IV Diagnosis: ESSENTIAL HYPERTENSION[ICD9: 401.9] Diagnosis: Neck pain[ICD9: 723.1] Diagnosis: Trigger point of left shoulder region[ICD9: 719.41] Jena Blas MD [facility] CPT-4: 17050 08/22/2014 ([id number]) 63541 EST. PATIENT, LEVEL IV Diagnosis: ESSENTIAL HYPERTENSION[ICD9: 401.9] Diagnosis: Cervicalgia[ICD9: 723.1] Diagnosis: LUMBAGO[ICD9: 724.2] Diagnosis: DEPRESSIVE DISORDER NEC[ICD9: 311] Jena Blas MD [facility] CPT-4: 99379 05/30/2014 ([id number]) 73525 EST. PATIENT, LEVEL III Diagnosis: ESSENTIAL HYPERTENSION[ICD9: 401.9] Diagnosis: Arthralgia[ICD9: 719.40] Jena Blas MD [facility] CPT-4: 68105 03/02/2014 ([id number]) 26465 EST. PATIENT, LEVEL IV Diagnosis: ESSENTIAL HYPERTENSION[ICD9: 401.9] Diagnosis: HYPOTHYROIDISM[ICD9: 244.9] Jena Blas MD [facility] CPT- 4: 87139 11/15/2013 ([id number]) 61512 EST. PATIENT, LEVEL III Diagnosis: ESSENTIAL HYPERTENSION[SNOMED: 54071753] Diagnosis: GROSS HEMATURIA[ICD9: 599.71] Diagnosis: LUMBAGO[ICD9: 724.2] Jena Blas MD [facility] CPT-4: 73795 09/13/2013 ([id number]) 17333 EST. PATIENT, LEVEL III Diagnosis: DYSURIA[ICD9: 788.1] Diagnosis: Gross hematuria[ICD9: 599.71] Jena Blas MD [facility] CPT- 4: 44870 08/31/2013 86434 EST. PATIENT, LEVEL II Diagnosis: Incisional pain[ICD9: 782.0] Jena Blas MD [facility] CPT- 4: 06192 06/29/2013 ([id number]) 41427 EST. PATIENT, LEVEL III Diagnosis: ESSENTIAL HYPERTENSION[SNOMED: 62747520] Jena Blas MD [facility] CPT-4: 58346 06/15/2013 ([id number]) 94060 EST. PATIENT, LEVEL III Diagnosis: ESSENTIAL HYPERTENSION[SNOMED: 28437919] SEVEN Seymour MD CPT-4: 71799 05/25/2013 ([id number]) 58334 EST. 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 PATIENT, LEVEL III Diagnosis: Cervicalgia[ICD9: 723.1] Jena Blas MD [facility] CPT-4: 78347 02/02/2013 ([id number]) 98312 EST. PATIENT, LEVEL IV Diagnosis: HYPOTHYROIDISM[ICD9: 244.9] Diagnosis: Back pain[ICD9: 724.5] Diagnosis: History of UTI[ICD9: V13.02] Jena Blas MD [facility] CPT- 4: 27647 10/07/2012 ([id number]) 87583 EST. PATIENT, LEVEL III Diagnosis: ESSENTIAL HYPERTENSION[SNOMED: 42900710] Jena Blas MD [facility] CPT-4: 42090 08/18/2012 ([id number]) 56808 EST. PATIENT, LEVEL III Diagnosis: ESSENTIAL HYPERTENSION[SNOMED: 00506796] Jena Blas MD [facility] CPT-4: 73951 07/14/2012 ([id number]) 66972 EST. PATIENT, LEVEL IV Diagnosis: ESSENTIAL HYPERTENSION[SNOMED: 68844444] Diagnosis: Stage III chronic kidney disease[ICD9: 585.3] Jena Blas MD, [facility] CPT-4: 61441 06/23/2012 13665 EST. PATIENT, LEVEL IV Diagnosis: ESSENTIAL HYPERTENSION[SNOMED: 94846894] Jena Blas MD, [facility] CPT-4: 25261 02/19/2012 ([id number]) 57819 EST. PATIENT, LEVEL IV Diagnosis: ESSENTIAL HYPERTENSION[SNOMED: 76179399] Diagnosis: BACKACHE[ICD9: 724.5] Diagnosis: NONUNION OF FRACTURE[ICD9: 733.82] Jena Blas MD, [facility] CPT-4: 93233 08/05/2011 ([id number]) 89566 EST. 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 PATIENT, LEVEL IV Diagnosis: Back pain[ICD9: 724.5] Diagnosis: Knee pain, right[ICD9: 719.46] Diagnosis: Thrush, oral[ICD9: 112.0] Louisa Blas MD, [facility] CPT-4: 55928 06/16/2011 11671 EST. PATIENT, LEVEL IV Diagnosis: ESSENTIAL HYPERTENSION[SNOMED: 34054685] Diagnosis: VAC STREP PNEUMONIAE-FLU[ICD9: V06.6] Jena Blas MD, [facility] CPT-4: 27498 02/17/2011 85493 EST. PATIENT, LEVEL III Diagnosis: Conjunctivitis[ICD9: 372.30] Louisa Blas MD, [facility] CPT-4: 88740 01/08/2011 Plan of Care Planned Activity Notes Codes Status Date Appointment: Tierney Andrade WPtel: [address] [place], [place] [id number] [place] (15 min) Moderate 06/11/2017 Visit Plan: URI - Pt advised to increase fluids, vitamin C. Discussed natural and expected course of this diagnosis and need to alert me if symptoms do not follow expected course, or if any worse. RX for cough medication given to patient. 05/05/2017 Appointment: Jena Blas WPtel: [phone] [facility] [address] (15 min) Moderate 05/05/2017 Patient Education: Patient Medication Summary Completed 05/05/2017 Visit Plan: Hypertension - well controlled - continue with current medications, continue with no added salt diet. Pt has been encouraged to exercise daily. The pt has been advised to call the office if there are any acute concerns about change in blood pressure readings at home. Hypothyroidism - pt with chronic hypothyroidism, continue with current medication, will monitor pt to signs or symptoms of lack of adequate supplementation. Pt is to continue with current dose of medication unless directed otherwise. Check labs at regular intervals wither q 3 months or q 6 months based on previous levels of control. 04/21/2017 Appointment: Jena Blas WPtel: [phone] [facility] [address] (15 min) Moderate 04/21/2017 Patient Education: Patient Medication Summary Completed 04/21/2017 Visit Plan: Hypertension - well controlled - continue with current medications, continue with no added salt diet. Pt has been encouraged to exercise daily. The pt has been advised to call the office if there are any acute concerns about change in blood pressure readings at home. 03/31/2017 Appointment: [phone] (15 min) Moderate 03/31/2017 Patient Education: Patient Medication Summary Completed 03/31/2017 Appointment: Jena Blas WPtel: [address] [facility] [place] (30 min) Complex 03/17/2017 Visit Plan: Hypertension - for this patient her blood pressure is well controlled - continue with current medications, continue with no added salt diet. Pt has been encouraged to exercise daily. The pt has been advised to call the office if there are any acute concerns about change in blood pressure readings at home. Nocturnal hypoxemia - via [facility] [employer] [facility] to do an overnight oxygen Right ulnar fracture - continue with supportive care. 03/02/2017 Appointment: Jena Blas WPtel: [phone] [facility] [address] (15 min) Moderate 03/02/2017 Patient Education: Patient Medication Summary Completed 03/02/2017 Visit Plan: Hypertension - well controlled per her home readings - Pt seeing Dr. German for her heart - and will refer to Dr. Ferdniand German for her chronic renal failure- continue with current medications, continue with no added salt diet. Pt has been encouraged to exercise daily. The pt has been advised to call the office if there are any acute concerns about change in blood pressure readings at home. Chronic renal failure - check labs tomorrow - call Dr. Gail German for appt information for Silvana - send a copy of her labs to Dr. Dana German and Dr. Warren German 12/16/2016 Appointment: Jena Blas WPtel: [phone] [facility] [address] (15 min) Moderate 12/16/2016 Patient Education: Patient Medication Summary Completed 12/16/2016 Visit Plan: Hypertension - well controlled - continue with current medications, continue with no added salt diet. Pt has been encouraged to exercise daily. The pt has been advised to call the office if there are any acute concerns about change in blood pressure readings at home. Hypothyroidism - pt with chronic hypothyroidism, continue with current medication, will monitor pt to signs or symptoms of lack of adequate supplementation. Pt is to continue with current dose of medication unless directed otherwise. Check labs at regular intervals wither q 3 months or q 6 months based on previous levels of control. Sciatica- exercises discussed with the patient, pt to continue with antiinflammatories. Pt is to call if the symptoms do not improve or if they worsen. 11/18/2016 Appointment: Jena Blas WPtel: [phone] [facility] [address] (15 min) Moderate 11/18/2016 Patient Education: Patient Medication Summary Completed 11/18/2016 Visit Plan: Edema - pt has been advised to elevate legs to prevent dependent edema, compression has been recommended to help to naturally decrease peripheral edema. Diuretic use has been discussed and pt has been instructed in appropriate use of such medication as necessary to further attempt to reduce peripheral edema. 09/22/2016 Appointment: Tierney Andrade WPtel: [phone] [facility] (15 min) Moderate 09/22/2016 Patient Education: Patient Medication Summary Completed 09/22/2016 Visit Plan: HTN - based on Silvana's home blood pressure checks - her blood pressure is stable. She is seeing Dr. German - he has adjusted her medications and she is stable at this time. No further medication changes by me today. Hypothyroidism - pt with chronic hypothyroidism, continue with current medication, will monitor pt to signs or symptoms of lack of adequate supplementation. Pt is to continue with current dose of medication unless directed otherwise. Check labs at regular intervals wither q 3 months or q 6 months based on previous levels of control. 07/29/2016 Appointment: Jena Blas WPtel: [address] [facility] [address] (15 min) Moderate 07/29/2016 Patient Education: Patient Medication Summary Completed 07/29/2016 Appointment: Jena Blas WPtel: [phone] [facility] [address] (15 min) Moderate 06/18/2016 Visit Plan: Hypertension - well controlled - continue with current medications, continue with no added salt diet. Pt has been encouraged to exercise daily. The pt has been advised to call the office if there are any acute concerns about change in blood pressure readings at home. CKD - chronic - continue to monitor symptoms. Edema - support stockings. 06/03/2016 Appointment: Jena Blas WPtel: [phone] [facility] [address] (15 min) Moderate 06/03/2016 Patient Education: Patient Medication Summary Completed 06/03/2016 Appointment: Jena Blas WPtel: [facility] [address] (15 min) Moderate 05/28/2016 Visit Plan: Hypertension - well controlled - continue with current medications, continue with no added salt diet. Pt has been encouraged to exercise daily. The pt has been advised to call the office if there are any acute concerns about change in blood pressure readings at home. FLU SHOT Back pain - continue with stretching, prn hydrocodone use. 02/13/2016 Appointment: Jena Blas WPtel: [phone] [facility] [address] (15 min) Moderate 02/13/2016 Patient Education: Patient Medication Summary Completed 02/13/2016 Patient Education: Hypertension Completed 02/13/2016 Visit Plan: Hypertension - well controlled - continue with current medications, continue with no added salt diet. Pt has been encouraged to exercise daily. The pt has been advised to call the office if there are any acute concerns about change in blood pressure readings at home. Hypothyroidism - pt with chronic hypothyroidism, continue with current medication, will monitor pt to signs or symptoms of lack of adequate supplementation. Pt is to continue with current dose of medication unless directed otherwise. Check labs at regular intervals wither q 3 months or q 6 months based on previous levels of control. Low back pain - continue with prn pain medications - stretches, call if not improving. 10/17/2015 Appointment: Jena Blas WPtel: [phone] [place] (15 min) Moderate 10/17/2015 Patient Education: Patient Medication Summary Completed 10/17/2015 Patient Education: Hypertension Completed 10/17/2015 Visit Plan: Hypertension - well controlled - continue with current medications, continue with no added salt diet. Pt has been encouraged to exercise daily. The pt has been advised to call the office if there are any acute concerns about change in blood pressure readings at home. Hypothyroidism - pt with chronic hypothyroidism, continue with current medication, will monitor pt to signs or symptoms of lack of adequate supplementation. Pt is to continue with current dose of medication unless directed otherwise. Check labs at regular intervals wither q 3 months or q 6 months based on previous levels of control. 07/11/2015 Visit Plan: Hypertension - well controlled - continue with current medications, continue with no added salt diet. Pt has been encouraged to exercise daily. The pt has been advised to call the office if there are any acute concerns about change in blood pressure readings at home. Hypothyroidism - pt with chronic hypothyroidism, continue with current medication, will monitor pt to signs or symptoms of lack of adequate supplementation. Pt is to continue with current dose of medication unless directed otherwise. Check labs at regular intervals wither q 3 months or q 6 months based on previous levels of control. 07/11/2015 Patient Education: Patient Medication Summary Completed 07/11/2015 Patient Education: Hypertension Completed 07/11/2015 Visit Plan: Sinusitis - Pt has acute infection - pain in face, maxillary region, Pt informed to use decongestant, RX given to patient, sinus rinses also recommended. Call if symptoms do not show improvement. STOP Z- PACK START LEVAQUIN 500 MG X1 DAY THEN 250 MG X6 DAYS KENALOG 40 MG IM FLONASE 1 SPRAY EACH NARE DAILY 06/29/2015 Appointment: Louis[facility] [place] (10 min) Simple 06/29/2015 Patient Education: Patient Medication Summary Completed 06/29/2015 Appointment: Jena Blas WPtel: [phone] [facility] [place] [place] (15 min) Moderate 06/27/2015 Referral: Dr. Cali Stauffer WPtel: Referral Completed 04/10/2015 Visit Plan: Pt complains of left popliteal pain - Pt states that 4 days ago she had pain behind the left knee and in the left calf. Pt states that the calf was red and warm for 3 days, but was looking better yesterday and today. Left lower extremity and popliteal region has slight swelling, no erythema or warmth at present. Will get ultrasound of left leg. 04/02/2015 Appointment: (30 min) Complex 04/02/2015 Patient Education: Patient Medication Summary Completed 04/02/2015 Visit Plan: Cervicalgia and Lower Back pain - recommended pt to have evaluation by Dr. Stauffer for possible epidural injections. Pt has had injections in the past and had success with the pain control, but has not been seen by a specialist in "many years". Hypertension - well controlled - continue with current medications, continue with no added salt diet. Pt has been encouraged to exercise daily. The pt has been advised to call the office if there are any acute concerns about change in blood pressure readings at home. 03/22/2015 Patient Education: Patient Medication Summary Completed 03/22/2015 Patient Education: .Cervicalgia Neck Pain Completed 03/22/2015 Care Plan: Referral Order SNOMED-CT : [id number] Ordered 03/22/2015 Appointment: Jena Blas WPtel: [address] [place], [place] [address] [place] (15 min) Moderate 03/14/2015 Visit Plan: Shingles - Herpes Zoster - acute in onset - RX sent to pharmacy and pt instructed to call if symptoms worsen or if the pt is concerned about the symptoms. Pt has been advised to avoid contact with persons who may be , or infants, or immunocompromised individuals. Pt has been instructed that shingles will continue to break out and eventually scab over a two week period, until all of the vesicles are scabbed, the pt is to be considered contagious. Hypertension - well controlled - continue with current medications, continue with no added salt diet. Pt has been encouraged to exercise daily. The pt has been advised to call the office if there are any acute concerns about change in blood pressure readings at home. Neck and shoulder Pain- pt to start with tiger balm or aspercreme or biofreeze to neck and shoulder three times daily, will refer to physical therapy for evaluation and treatment. Chronic Depression and anxiety - the pt has symptoms of chronic anxiety and depression that have been fairly well controlled since the last office visit. The pt has expected periods of exacerbation with abatement of the symptoms with change in situational exposure. No change in current medications. 02/22/2015 Patient Education: Patient Medication Summary Completed 02/22/2015 Patient Education: Hypertension Completed 02/22/2015 Patient Education: .Cervicalgia Neck Pain Completed 02/22/2015 Appointment: Nurse Visit 02/09/2015 Visit Plan: Hypertension - well controlled - continue with current medications, continue with no added salt diet. Pt has been encouraged to exercise daily. The pt has been advised to call the office if there are any acute concerns about change in blood pressure readings at home. Neck Pain- pt to start with tiger balm or aspercreme or biofreeze to neck three times daily and start neck exercises daily. Chronic Depression and anxiety - the pt has symptoms of chronic anxiety and depression that have been fairly well controlled since the last office visit. The pt has expected periods of exacerbation with abatement of the symptoms with change in situational exposure. No change in current medications. 12/13/2014 Appointment: Jena Blas WPtel: [facility] [facility] [place] [place] (15 min) Moderate 12/13/2014 Patient Education: Patient Medication Summary Completed 12/13/2014 Appointment: Jena Blas WPtel: [phone] [facility] [place] [place] Follow up 11/07/2014 Visit Plan: Neck pain - has improved - continue with heat, massage with hand massager, but I have recommended pt to seek professional massage as this would likely help the symptoms of her neck discomfort. 09/05/2014 Patient Education: Patient Medication Summary Completed 09/05/2014 Patient Education: .Cervicalgia Neck Pain Completed 09/05/2014 Visit Plan: Hypertension - uncontrolled -no change to medications right now - she is in acute pain - will check blood pressures in two weeks - hopefully will have improvement. The patient has been counseled to cut back on salt in diet for a no added salt diet, low fat diet, start an exercise program with low weight bearing exercises and higher aerobic activity for heart health. The patient is to check blood pressure readings as an outpatient and either fax, call, or email the readings to the office next week for practitioner to review. The pt is to call for acute concerns. Neck pain, Back pain - trigger points - suspect that the patient has facet arthropathy - trigger points injected today - recommended pt to have flexeril 5mg nightly x 3 nights, then as needed, heat to back, and bolster under left shoulder/scapular region to attempt to improve the facet arthropathy. 08/22/2014 Visit Plan: Hypertension - uncontrolled -no change to medications right now - she is in acute pain - will check blood pressures in two weeks - hopefully will have improvement. The patient has been counseled to cut back on salt in diet for a no added salt diet, low fat diet, start an exercise program with low weight bearing exercises and higher aerobic activity for heart health. The patient is to check blood pressure readings as an outpatient and either fax, call, or email the readings to the office next week for practitioner to review. The pt is to call for acute concerns. Neck pain, Back pain - trigger points - suspect that the patient has facet arthropathy - trigger points injected today - recommended pt to have flexeril 5mg nightly x 3 nights, then as needed, heat to back, and bolster under left shoulder/scapular region to attempt to improve the facet arthropathy. EVA [id number] EXP [id number]/22/2014 Appointment: Jena Blas WPtel: [facility]5 [facility] [address] Follow up 08/22/2014 Patient Education: Patient Medication Summary Completed 08/22/2014 Patient Education: Hypertension Completed 08/22/2014 Patient Education: .Cervicalgia Neck Pain Completed 08/22/2014 Appointment: Jena Blas WPtel: [facility]5 [facility] [address] Follow up 06/28/2014 Visit Plan: Hypertension - well controlled - continue with current medications, continue with no added salt diet. Pt has been encouraged to exercise daily. The pt has been advised to call the office if there are any acute concerns about change in blood pressure readings at home. Neck Pain- pt to start with tiger balm or aspercreme or biofreeze to neck three times daily and start neck exercises daily. Chronic Depression and anxiety - the pt has symptoms of chronic anxiety and depression that have been fairly well controlled since the last office visit. The pt has expected periods of exacerbation with abatement of the symptoms with change in situational exposure. No change in current medications. 05/30/2014 Appointment: Jena Blas WPtel: [address] [place], [place] [id number] Follow up 05/30/2014 Patient Education: Patient Medication Summary Completed 05/30/2014 Patient Education: Hypertension Completed 05/30/2014 Patient Education: .Cervicalgia Neck Pain Completed 05/30/2014 Visit Plan: Hypertension - uncontrolled - pt has chronically uncontrolled Hypertension. The patient has been counseled to cut back on salt in diet for a no added salt diet, low fat diet, start an exercise program with low weight bearing exercises and higher aerobic activity for heart health. The patient is to check blood pressure readings as an outpatient and either fax, call, or email the readings to the office next week for practitioner to review. The pt is to call for acute concerns. Osteoarthritis - chronic - with left wrist pain from wrist fracture - Pt has been receiving physical therapy and has been doing well. 03/02/2014 Appointment: Jena Blas WPtel: [facility] [place] Follow up 03/02/2014 Patient Education: Patient Medication Summary Completed 03/02/2014 Patient Education: Hypertension Completed 03/02/2014 Visit Plan: Hypertension - well controlled - continue with current medications, continue with no added salt diet. Pt has been encouraged to exercise daily. The pt has been advised to call the office if there are any acute concerns about change in blood pressure readings at home. Hypothyroidism - pt with chronic hypothyroidism, continue with current medication, will monitor pt to signs or symptoms of lack of adequate supplementation. Pt is to continue with current dose of medication unless directed otherwise. Check labs at regular intervals wither q 3 months or q 6 months based on previous levels of control. 11/15/2013 Appointment: Jena Blas WPtel: [facility] Follow [place] 11/15/2013 Patient Education: Patient Medication Summary Completed 11/15/2013 Visit Plan: Hypertension - well controlled - continue with current medications, continue with no added salt diet. Pt has been encouraged to exercise daily. The pt has been advised to call the office if there are any acute concerns about change in blood pressure readings at home. Hematuria - pt to see speicalist tomorrow and have cystoscopy. Low back pain - pt given handouts for exercise for low back pain. 09/13/2013 Appointment: Jena Blas WPtel: [facility] [place] Follow up 09/13/2013 Patient Education: Patient Medication Summary Completed 09/13/2013 Patient Education: Hypertension Completed 09/13/2013 Appointment: Louisa [phone] [place] Injection 09/02/2013 Patient Education: Patient Medication Summary Completed 09/02/2013 Patient Education: Patient Medication Summary Completed 09/01/2013 Visit Plan: Gross Hematuria - pt has been on ciprofloxacin for several days - she has not checked her INR on her home INR machine. I will send her for stat labs - chemistry, cbc, INR 08/31/2013 Appointment: Jena Blas WPtel: [facility] [place] Lab Draw 08/31/2013 Patient Education: Patient Medication Summary Completed 08/31/2013 Appointment: Louisa Weaver [facility]el[facility] [facility] [place] Lab Draw 08/23/2013 Patient Education: Patient Medication Summary Completed 08/23/2013 Visit Plan: Healing pacemaker site - pt to call if the incision appears to be worsening, or more erythematous or more painful. No acute treatment needed at this time. 06/29/2013 Appointment: Jena Blas WPtel: [facility] [facility] 06/29/2013 Patient Education: Patient Medication Summary Completed 06/29/2013 Visit Plan: Hypertension - well controlled - continue with current medications, continue with no added salt diet. Pt has been encouraged to exercise daily. The pt has been advised to call the office if there are any acute concerns about change in blood pressure readings at home. 06/15/2013 Appointment: Jena Blas WPtel: [facility] Follow up 06/15/2013 Patient Education: Patient Medication Summary Completed 06/15/2013 Patient Education: Hypertension Completed 06/15/2013 Appointment: Jena Blas WPtel: [facility] Follow up 06/09/2013 Visit Plan: Hypertension - well controlled - continue with current medications, continue with no added salt diet. Pt has been encouraged to exercise daily. The pt has been advised to call the office if there are any acute concerns about change in blood pressure readings at home. 05/25/2013 Appointment: Jena Blas WPtel: [address] [place] [address] [facility] follow up 05/25/2013 Patient Education: Patient Medication Summary Completed 05/25/2013 Patient Education: Hypertension Completed 05/25/2013 Appointment: Jena Blas WPtel: [address] [place], [place] [id number] Follow up 05/18/2013 Appointment: Jena Blas WPtel: [facility] Follow up 05/05/2013 Appointment: Owen Louisa [facility]Ptel[facility] [facility] Lab Draw 03/04/2013 Patient Education: Patient Medication Summary Completed 03/04/2013 Visit Plan: Salivary gland infection - resolved - pt to finish off antibiotics, call if symptoms return. 03/03/2013 Appointment: Roopa Jena WPtel: [facility]5 [facility] [address] Follow up 03/03/2013 Patient Education: Patient Medication Summary Completed 03/03/2013 Appointment: Maddie Blasy WPtel: [facility]5 [facility] [address] Follow up 03/01/2013 Visit Plan: ADMIT FROM CLINIC TO HOSPITAL - PT IS ACUTELY ILL, REQUIRES HOSPITALIZATION. THE PATIENT HAS BEEN EVALUATED IN CLINIC AND THIS STANDS THE HOSPITAL HISTORY AND PHYSICAL EXAMINATION. THE PATIENT HAS BEEN SENT TO THE HOSPITAL WITH WRITTEN ORDERS FOR TREATMENT AND EVALUATION OF THE ACUTE ILLNESS. Pt passed out in clinic today after getting up from exam chair and walking out to check out area - pt passed out , fell to floor, did not sustain injury - and pt had to be assisted up to wheelchair and given water , and then wheeled out to her daughter's vehicle for direct admission. Suspect partotid infeciton versus parotid stone - recommended pt to be started on iv clindamycin, consult to tracey cosme, will get ct scan of face/neck of soft tissues and further labs to be orderd upon admission. 02/16/2013 Appointment: Maddie Blasy WPtel: [facility] S[place] 02/16/2013 Patient Education: Patient Medication Summary Completed 02/16/2013 Patient Education: Hypertension Completed 02/16/2013 Visit Plan: Neck pain - appears to have a muscular component - I did not recommend trigger point injections today as the patient is to have cataract surgery in a few days. I have recommended that Silvana perform stretching exercises - specifically neck exercises which have been provided to the patient with a hand out today. Flu shot today 02/02/2013 Appointment: Jena Blas WPtel: [address] [place], [place] [id number] Other 02/02/2013 Patient Education: Patient Medication Summary Completed 02/02/2013 Patient Education: .Cervicalgia Neck Pain Completed 02/02/2013 Appointment: Jena Blas WPtel: [address] [place], [place] [id number] Follow up 10/13/2012 Visit Plan: Diffuse body aches/Back pain - concern for polymyalgia Rheumatica - will give Silvana a steroid burst as we await the labs - steroid burst as follows: prednisone burst 60mg daily x 5 days and a steroid shot today. Labs ordered today - tsh, t4, crp, esr, cpk, chem and cbc. I also have concern thta her statin may be inducing myalgias. Hopsefully this is not the case, but needs to be ruled out as a possible side effect of the medication causing her increased fatigue/myalgias, etc. I suspect that some of the symptoms may be related to depression symptoms over her son's health problems and his neurologic decline. 10/07/2012 Appointment: Jena Blas WPtel: [address] [place], [place] [id number] Follow up 10/07/2012 Patient Education: Patient Medication Summary Completed 10/07/2012 Appointment: Jena Blas WPtel: [address] [place], [place] [id number] Lab Draw 09/21/2012 Patient Education: Patient Medication Summary Completed 09/21/2012 Visit Plan: Hypertension - well controlled - continue with current medications, continue with no added salt diet. Pt has been encouraged to exercise daily. The pt has been advised to call the office if there are any acute concerns about change in blood pressure readings at home. 08/18/2012 Appointment: Jena Blas WPtel: [address] [place], [place] [id number] Follow up 08/18/2012 Patient Education: Patient Medication Summary Completed 08/18/2012 Patient Education: Hypertension Completed 08/18/2012 Visit Plan: Hypertension - I have recommended that she STOP her lisinopril and start on EDARBI - pt is to bring by the blood pressure readings in two weeks. she is to call JENNIFFER if her blood pressure goes below 120/ 60 or if her blood pressure goes and stays above 200/100. 07/14/2012 Appointment: Jena Blas WPtel: [facility] Follow up 07/14/2012 Patient Education: Patient Medication Summary Completed 07/14/2012 Patient Education: Hypertension Completed 07/14/2012 Visit Plan: Hypertension - uncontrolled - the patient's medications have been modified as documented in the visit note. The patient has been counseled to cut back on salt in diet for a no added salt diet, low fat diet, start an exercise program with low weight bearing exercises and higher aerobic activity for heart health. The patient is to check blood pressure readings as an outpatient and either fax, call, or email the readings to the office next week for practicioner to review. The pt is to call for acute concerns. Pt is to increase her diltiazem to 360mg daily. Stage 3 renal disease - recommended a change in her medications - will re-eval her symptoms of HTN and labs in the next few months. 06/23/2012 Appointment: Jena Blas WPtel: [facility] Follow [place] 06/23/2012 Patient Education: Patient Medication Summary Completed 06/23/2012 Patient Education: Hypertension Completed 06/23/2012 Appointment: Jena Blas WPtel: [facility] [facility] 03/18/2012 Appointment: Jena Blas WPtel: [address] [place] [address] Lab Draw 02/23/2012 Patient Education: Patient Medication Summary Completed 02/23/2012 Patient Education: High Blood Pressure: Essential Hypertension Completed 2011 Visit Plan: Hypertension - well controlled - continue with current medications, continue with no added salt diet. Pt has been encouraged to exercise daily. The pt has been advised to call the office if there are any acute concerns about change in blood pressure readings at home. Anticoagulation monitored by conference planner. 02/19/2012 Appointment: Jena Blas WPtel: [address] [place] [address] Established Patient Preventative visit 02/19/2012 Patient Education: Patient Medication Summary Completed 02/19/2012 Patient Education: High Blood Pressure: Essential Hypertension Completed 2011 Appointment: Jena Blas WPtel: [address] [place], [place] [id number] Other 08/18/2011 Visit Plan: Thoracic compression fracture - concern with this fracture is that it is potentially not a compression deformity by itself, but there may be a nondisplaced fracture across the body of the vertebra, I have recommended that we get her scheduled for a repeat ct scan of the thoracic spine to see if the pt can have kyphoplasty. She may have to have a bone scan to see if the bone has any other abnormality. HTN - uncontrolled secondary to pain. Silvana has chronic hypertension, usually has more elevated readings in the 150 - 160 range, but the systolic is up to 190's today. She ran out of her long acting narcotic, will have her come back by clinic this week for repeat blood pressure to see if her blood pressure improves with pain control 08/05/2011 Appointment: Jena Blas WPtel: [address] [place], [place] [id number] Other 08/05/2011 Patient Education: Patient Medication Summary Completed 08/05/2011 Patient Education: High Blood Pressure: Essential Hypertension Completed 2011 Appointment: Jena Blas WPtel: [address] [place], [place] [id number] Other 08/04/2011 Appointment: Jena Blas WPtel: [address] [place], [place] [id number] Other 07/28/2011 Visit Plan: Hypertension - uncontrolled - the patient's medications have been modified as documented in the visit note. The patient has been counseled to cut back on salt in diet for a no added salt diet, low fat diet, start an exercise program with low weight bearing exercises and higher aerobic activity for heart health. The patient is to check blood pressure readings as an outpatient and either fax, call, or email the readings to the office next week for practicioner to review. The pt is to call for acute concerns. Elevated blood pressure may be due to acute pain Thoracic compression fracture- pt has been instructed to take the oxycontin twice a day in an attempt to gain better control of her pain. 07/07/2011 Appointment: Jena Blas WPtel: [address] [place] [address] Other 07/07/2011 Patient Education: Patient Medication Summary Completed 07/07/2011 Patient Education: High Blood Pressure: Essential Hypertension Completed 2011 Appointment: Jena Blas WPtel: [address] [place] [address] Other 06/26/2011 Appointment: Louisa Weaver WPtel: [address] [place], [place] [id number] [place] [address] Other 06/23/2011 Visit Plan: Back pain-xray suggestive of possible T12 compression fracture-CT scheduled for additional diagnostic testing. Continue with hydrocodone as needed for pain. Right knee [id number] fall-plan to xray right knee to evaluate for acute abnormality. Jackie-discussed natural and expectecd course of this diagnosis and to alert me if symptoms do not follow expected course, or if any worse. Plan for nystatin swish and swallow. 06/16/2011 Appointment: Louisa Weaver WPtel: [address] [place], [place] [id number] [place] [address] Other 06/16/2011 Patient Education: Patient Medication Summary Completed 06/16/2011 Appointment: Louisa Weaver WPtel: [address] [place], [place] [id number] Other 06/11/2011 Visit Plan: Hypertension - well controlled - continue with current medications, continue with no added salt diet. Pt has been encouraged to exercise daily. The pt has been advised to call the office if there are any acute concerns about change in blood pressure readings at home. Pt given flu and pneumonia vaccine today, and order for mammogram and dexa scan. Anticoagulation monitored by conference planner. 02/17/2011 Appointment: Jena Blas WPtel: [facility] Other 02/17/2011 Patient Education: Patient Medication Summary Completed 02/17/2011 Visit Plan: Conjunctivitis-Discussed natural and expected course of this diagnosis and need to alert me if symtpoms do not follow expected course, or if any worse. Recommended warm moist compresses as needed for pain. Tylenol/motrin as needed for fever/discomfort. 01/08/2011 Appointment: Louisa Weaver [facility]Ptel[facility] Other 01/08/2011 Patient Education: Patient Medication Summary Completed 01/08/2011 Referral: Dr. Cali Stauffer WPtel: Referral Appointment Requested Instructions Comment . Hypertension - uncontrolled -no change to medications right now - she is in acute pain - will check blood pressures in two weeks - hopefully will have improvement. The patient has been counseled to cut back on salt in diet for a no added salt diet, low fat diet, start an exercise program with low weight bearing exercises and higher aerobic activity for heart health. The patient is to check blood pressure readings as an outpatient and either fax , call, or email the readings to the office next week for practitioner to review. The pt is to call for acute concerns. Neck pain, Back pain - trigger points - suspect that the patient has facet arthropathy - trigger points injected today - recommended pt to have flexeril 5mg nightly x 3 nights, then as needed, heat to back, and bolster under left shoulder/scapular region to attempt to improve the facet arthropathy. . Conjunctivitis-Discussed natural and expected course of this diagnosis and need to alert me if symtpoms do not follow expected course, or if any worse. Recommended warm moist compresses as needed for pain. Tylenol/ motrin as needed for fever/discomfort. Pt to try TIGERBALM on her knees instead of Aspercreme. . Hypertension - uncontrolled - pt has chronically uncontrolled Hypertension. The patient has been counseled to cut back on salt in diet for a no added salt diet, low fat diet, start an exercise program with low weight bearing exercises and higher aerobic activity for heart health. The patient is to check blood pressure readings as an outpatient and either fax , call, or email the readings to the office next week for practitioner to review. The pt is to call for acute concerns. Osteoarthritis - chronic - with left wrist pain from wrist fracture - Pt has been receiving physical therapy and has been doing well. . HTN - based on Silvana's home blood pressure checks - her blood pressure is stable. She is seeing Dr. German - he has adjusted her medications and she is stable at this time. No further medication changes by me today. Hypothyroidism - pt with chronic hypothyroidism, continue with current medication, will monitor pt to signs or symptoms of lack of adequate supplementation. Pt is to continue with current dose of medication unless directed otherwise. Check labs at regular intervals wither q 3 months or q 6 months based on previous levels of control. . Hypertension - well controlled - continue with current medications, continue with no added salt diet. Pt has been encouraged to exercise daily. The pt has been advised to call the office if there are any acute concerns about change in blood pressure readings at home. FLU SHOT Back pain - continue with stretching, prn hydrocodone use. . Hypertension - well controlled - continue with current medications, continue with no added salt diet. Pt has been encouraged to exercise daily. The pt has been advised to call the office if there are any acute concerns about change in blood pressure readings at home. Hypothyroidism - pt with chronic hypothyroidism, continue with current medication, will monitor pt to signs or symptoms of lack of adequate supplementation. Pt is to continue with current dose of medication unless directed otherwise. Check labs at regular intervals wither q 3 months or q 6 months based on previous levels of control. . Hypertension - for this patient her blood pressure is well controlled - continue with current medications, continue with no added salt diet. Pt has been encouraged to exercise daily. The pt has been advised to call the office if there are any acute concerns about change in blood pressure readings at home. Nocturnal hypoxemia - via [facility] to do an overnight oxygen Right ulnar fracture - continue with supportive care. pt to use heat to neck and tiger balm to neck three times daily, stretching exercises given to patient to be done three times daily x 1 week, then twice daily x 1 week, then as needed. . Hypertension - well controlled - continue with current medications, continue with no added salt diet. Pt has been encouraged to exercise daily. The pt has been advised to call the office if there are any acute concerns about change in blood pressure readings at home. Neck Pain- pt to start with tiger balm or aspercreme or biofreeze to neck three times daily and start neck exercises daily. Chronic Depression and anxiety - the pt has symptoms of chronic anxiety and depression that have been fairly well controlled since the last office visit. The pt has expected periods of exacerbation with abatement of the symptoms with change in situational exposure. No change in current medications. . Healing pacemaker site - pt to call if the incision appears to be worsening, or more erythematous or more painful. No acute treatment needed at this time. . Hypertension - uncontrolled -no change to medications right now - she is in acute pain - will check blood pressures in two weeks - hopefully will have improvement. The patient has been counseled to cut back on salt in diet for a no added salt diet, low fat diet, start an exercise program with low weight bearing exercises and higher aerobic activity for heart health. The patient is to check blood pressure readings as an outpatient and either fax , call, or email the readings to the office next week for practitioner to review. The pt is to call for acute concerns. Neck pain, Back pain - trigger points - suspect that the patient has facet arthropathy - trigger points injected today - recommended pt to have flexeril 5mg nightly x 3 nights, then as needed, heat to back, and bolster under left shoulder/scapular region to attempt to improve the facet arthropathy. EVA [id number] EXP 02-02-2016 . Hypertension - well controlled - continue with current medications, continue with no added salt diet. Pt has been encouraged to exercise daily. The pt has been advised to call the office if there are any acute concerns about change in blood pressure readings at home. Anticoagulation monitored by conference planner. . Salivary gland infection - resolved - pt to finish off antibiotics, call if symptoms return. . Diffuse body aches/Back pain - concern for polymyalgia Rheumatica - will give Silvana a steroid burst as we await the labs - steroid burst as follows: prednisone burst 60mg daily x 5 days and a steroid shot today. Labs ordered today - tsh, t4, crp, esr, cpk, chem and cbc. I also have concern thta her statin may be inducing myalgias. Hopsefully this is not the case, but needs to be ruled out as a possible side effect of the medication causing her increased fatigue/myalgias, etc. I suspect that some of the symptoms may be related to depression symptoms over her son's health problems and his neurologic decline. . Cervicalgia and Lower Back pain - recommended pt to have evaluation by Dr. Stauffer for possible epidural injections. Pt has had injections in the past and had success with the pain control, but has not been seen by a specialist in "many years". Hypertension - well controlled - continue with current medications, continue with no added salt diet. Pt has been encouraged to exercise daily. The pt has been advised to call the office if there are any acute concerns about change in blood pressure readings at home. . Thoracic compression fracture - concern with this fracture is that it is potentially not a compression deformity by itself, but there may be a nondisplaced fracture across the body of the vertebra, I have recommended that we get her scheduled for a repeat ct scan of the thoracic spine to see if the pt can have kyphoplasty. She may have to have a bone scan to see if the bone has any other abnormality. HTN - uncontrolled secondary to pain. Silvana has chronic hypertension, usually has more elevated readings in the 150 - 160 range, but the systolic is up to 190 's today. She ran out of her long acting narcotic, will have her come back by clinic this week for repeat blood pressure to see if her blood pressure improves with pain control . URI - Pt advised to increase fluids, vitamin C. Discussed natural and expected course of this diagnosis and need to alert me if symptoms do not follow expected course, or if any worse. RX for cough medication given to patient. . Hypertension - well controlled per her home readings - Pt seeing Dr. German for her heart - and will refer to Dr. Ferdinand German for her chronic renal failure- continue with current medications, continue with no added salt diet. Pt has been encouraged to exercise daily. The pt has been advised to call the office if there are any acute concerns about change in blood pressure readings at home. Chronic renal failure - check labs tomorrow - call Dr. Gail German for appt information for Silvana - send a copy of her labs to Dr. Dana German and Dr. Warren German FLONASE 1 SPRAY EACH NARE DAILY . Sinusitis - Pt has acute infection - pain in face, maxillary region, Pt informed to use decongestant, RX given to patient, sinus rinses also recommended. Call if symptoms do not show improvement. STOP Z-PACK START LEVAQUIN 500 MG X1 DAY THEN 250 MG X6 DAYS KENALOG 40 MG IM FLONASE 1 SPRAY EACH NARE DAILY . Hypertension - well controlled - continue with current medications, continue with no added salt diet. Pt has been encouraged to exercise daily. The pt has been advised to call the office if there are any acute concerns about change in blood pressure readings at home. . Hypertension - well controlled - continue with current medications, continue with no added salt diet. Pt has been encouraged to exercise daily. The pt has been advised to call the office if there are any acute concerns about change in blood pressure readings at home. Hematuria - pt to see speicalist tomorrow and have cystoscopy. Low back pain - pt given handouts for exercise for low back pain. . ADMIT FROM CLINIC TO HOSPITAL - PT IS ACUTELY ILL, REQUIRES HOSPITALIZATION. THE PATIENT HAS BEEN EVALUATED IN CLINIC AND THIS STANDS THE HOSPITAL HISTORY AND PHYSICAL EXAMINATION. THE PATIENT HAS BEEN SENT TO THE HOSPITAL WITH WRITTEN ORDERS FOR TREATMENT AND EVALUATION OF THE ACUTE ILLNESS. Pt passed out in clinic today after getting up from exam chair and walking out to check out area - pt passed out , fell to floor, did not sustain injury - and pt had to be assisted up to wheelchair and given water, and then wheeled out to her daughter's vehicle for direct admission. Suspect partotid infeciton versus parotid stone - recommended pt to be started on iv clindamycin, consult to tracey cosme, will get ct scan of face/ neck of soft tissues and further labs to be orderd upon admission. pt to use heat to neck and tiger balm to neck three times daily . Hypertension - well controlled - continue with current medications, continue with no added salt diet. Pt has been encouraged to exercise daily. The pt has been advised to call the office if there are any acute concerns about change in blood pressure readings at home. Neck Pain- pt to start with tiger balm or aspercreme or biofreeze to neck three times daily and start neck exercises daily. Chronic Depression and anxiety - the pt has symptoms of chronic anxiety and depression that have been fairly well controlled since the last office visit. The pt has expected periods of exacerbation with abatement of the symptoms with change in situational exposure. No change in current medications. pt is to cut her TEKTURNA IN HALF and take 1/2 dose daily. she needs to monitor her blood pressure at home, and call with report on her pressures and heart rate on Thursday or Thursday.. Hypertension - well controlled - continue with current medications, continue with no added salt diet. Pt has been encouraged to exercise daily. The pt has been advised to call the office if there are any acute concerns about change in blood pressure readings at home. repeat thyroid labs in two months.. Hypertension - well controlled - continue with current medications, continue with no added salt diet. Pt has been encouraged to exercise daily. The pt has been advised to call the office if there are any acute concerns about change in blood pressure readings at home. . Hypertension - well controlled - continue with current medications, continue with no added salt diet. Pt has been encouraged to exercise daily. The pt has been advised to call the office if there are any acute concerns about change in blood pressure readings at home. Hypothyroidism - pt with chronic hypothyroidism, continue with current medication, will monitor pt to signs or symptoms of lack of adequate supplementation. Pt is to continue with current dose of medication unless directed otherwise. Check labs at regular intervals wither q 3 months or q 6 months based on previous levels of control. Sciatica- exercises discussed with the patient, pt to continue with antiinflammatories. Pt is to call if the symptoms do not improve or if they worsen. Will refer for physical therapy. Will send RX for possible shingles. pt to use heat to neck and tiger balm to neck and shoulder three times daily . Shingles - Herpes Zoster - acute in onset - RX sent to pharmacy and pt instructed to call if symptoms worsen or if the pt is concerned about the symptoms. Pt has been advised to avoid contact with persons who may be , or infants, or immunocompromised individuals. Pt has been instructed that shingles will continue to break out and eventually scab over a two week period, until all of the vesicles are scabbed, the pt is to be considered contagious. Hypertension - well controlled - continue with current medications, continue with no added salt diet. Pt has been encouraged to exercise daily. The pt has been advised to call the office if there are any acute concerns about change in blood pressure readings at home. Neck and shoulder Pain- pt to start with tiger balm or aspercreme or biofreeze to neck and shoulder three times daily, will refer to physical therapy for evaluation and treatment. Chronic Depression and anxiety - the pt has symptoms of chronic anxiety and depression that have been fairly well controlled since the last office visit. The pt has expected periods of exacerbation with abatement of the symptoms with change in situational exposure. No change in current medications. melatonin 3mg to take at bedtime to help augment sleep - see if this helps to allow you to feel more rested in the morning and thus having more energy during the day. . Hypertension - well controlled - continue with current medications, continue with no added salt diet. Pt has been encouraged to exercise daily. The pt has been advised to call the office if there are any acute concerns about change in blood pressure readings at home. Hypothyroidism - pt with chronic hypothyroidism, continue with current medication, will monitor pt to signs or symptoms of lack of adequate supplementation. Pt is to continue with current dose of medication unless directed otherwise. Check labs at regular intervals wither q 3 months or q 6 months based on previous levels of control. . Hypertension - uncontrolled - the patient's medications have been modified as documented in the visit note. The patient has been counseled to cut back on salt in diet for a no added salt diet, low fat diet, start an exercise program with low weight bearing exercises and higher aerobic activity for heart health. The patient is to check blood pressure readings as an outpatient and either fax , call, or email the readings to the office next week for practicioner to review. The pt is to call for acute concerns. Elevated blood pressure may be due to acute pain Thoracic compression fracture- pt has been instructed to take the oxycontin twice a day in an attempt to gain better control of her pain. Hypertension - I have recommended that she STOP her lisinopril and start on EDARBI - pt is to bring by the blood pressure readings in two weeks. she is to call [facility] if her blood pressure goes below 120/60 or if her blood pressure goes and stays above 200/100.. Hypertension - I have recommended that she STOP her lisinopril and start on EDARBI - pt is to bring by the blood pressure readings in two weeks. she is to call [facility] if her blood pressure goes below 120/60 or if her blood pressure goes and stays above 200/100. Nystatin swish and swallow 6ml four times daily for a week. Call if your symptoms do not resolve. We have your CT thoracic spine scheduled tomorrow at 8:45am. I also gave you an order for an xray of your right knee-get the xray after they are finished with your CT scan. We will call you with the results. Continue hydrocodone as needed for pain-call if you need a refill. . Back pain- xray suggestive of possible T12 compression fracture-CT scheduled for additional diagnostic testing. Continue with hydrocodone as needed for pain. Right knee [id number] fall-plan to xray right knee to evaluate for acute abnormality. Thursh-discussed natural and expectecd course of this diagnosis and to alert me if symptoms do not follow expected course, or if any worse. Plan for nystatin swish and swallow. PATIENT NEEDS TO INCREASE THE DILTIAZEM TO 360MG DAILY.. Hypertension - uncontrolled - the patient's medications have been modified as documented in the visit note. The patient has been counseled to cut back on salt in diet for a no added salt diet, low fat diet, start an exercise program with low weight bearing exercises and higher aerobic activity for heart health. The patient is to check blood pressure readings as an outpatient and either fax , call, or email the readings to the office next week for practicioner to review. The pt is to call for acute concerns. Pt is to increase her diltiazem to 360mg daily. Stage 3 renal disease - recommended a change in her medications - will re-eval her symptoms of HTN and labs in the next few months. . Neck pain - appears to have a muscular component - I did not recommend trigger point injections today as the patient is to have cataract surgery in a few days. I have recommended that Silvana perform stretching exercises - specifically neck exercises which have been provided to the patient with a hand out today. Flu shot today . Hypertension - well controlled - continue with current medications, continue with no added salt diet. Pt has been encouraged to exercise daily. The pt has been advised to call the office if there are any acute concerns about change in blood pressure readings at home. . Neck pain - has improved - continue with heat, massage with hand massager, but I have recommended pt to seek professional massage as this would likely help the symptoms of her neck discomfort. . Hypertension - well controlled - continue with current medications, continue with no added salt diet. Pt has been encouraged to exercise daily. The pt has been advised to call the office if there are any acute concerns about change in blood pressure readings at home. Pt given flu and pneumonia vaccine today, and order for mammogram and dexa scan. Anticoagulation monitored by conference planner. . Pt complains of left popliteal pain - Pt states that 4 days ago she had pain behind the left knee and in the left calf. Pt states that the calf was red and warm for 3 days, but was looking better yesterday and today. Left lower extremity and popliteal region has slight swelling, no erythema or warmth at present. Will get ultrasound of left leg. . Hypertension - well controlled - continue with current medications, continue with no added salt diet. Pt has been encouraged to exercise daily. The pt has been advised to call the office if there are any acute concerns about change in blood pressure readings at home. CKD - chronic - continue to monitor symptoms. Edema - support stockings. . Hypertension - well controlled - continue with current medications, continue with no added salt diet. Pt has been encouraged to exercise daily. The pt has been advised to call the office if there are any acute concerns about change in blood pressure readings at home. Hypothyroidism - pt with chronic hypothyroidism, continue with current medication, will monitor pt to signs or symptoms of lack of adequate supplementation. Pt is to continue with current dose of medication unless directed otherwise. Check labs at regular intervals wither q 3 months or q 6 months based on previous levels of control. Low back pain - continue with prn pain medications - stretches, call if not improving. . Gross Hematuria - pt has been on ciprofloxacin for several days - she has not checked her INR on her home INR machine. I will send her for stat labs - chemistry, cbc, INR elevate legs to prevent dependent edema, compression has been recommended to help to naturally decrease peripheral edema. Diuretic use has been discussed and pt has been instructed in appropriate use of such medication as necessary to further attempt to reduce peripheral edema. . Edema - pt has been advised to elevate legs to prevent dependent edema, compression has been recommended to help to naturally decrease peripheral edema. Diuretic use has been discussed and pt has been instructed in appropriate use of such medication as necessary to further attempt to reduce peripheral edema. . Hypertension - well controlled - continue with current medications, continue with no added salt diet. Pt has been encouraged to exercise daily. The pt has been advised to call the office if there are any acute concerns about change in blood pressure readings at home. Hypothyroidism - pt with chronic hypothyroidism, continue with current medication, will monitor pt to signs or symptoms of lack of adequate supplementation. Pt is to continue with current dose of medication unless directed otherwise. Check labs at regular intervals wither q 3 months or q 6 months based on previous levels of control. monistat vag cream apply to vag bid x 3 days. melatonin 3mg to take at bedtime to help augment sleep - see if this helps to allow you to feel more rested in the morning and thus having more energy during the day. . Hypertension - well controlled - continue with current medications, continue with no added salt diet. Pt has been encouraged to exercise daily. The pt has been advised to call the office if there are any acute concerns about change in blood pressure readings at home. Hypothyroidism - pt with chronic hypothyroidism, continue with current medication, will monitor pt to signs or symptoms of lack of adequate supplementation. Pt is to continue with current dose of medication unless directed otherwise. Check labs at regular intervals wither q 3 months or q 6 months based on previous levels of control.
--- OUTSIDE RECORDS SUMMARY | 2017-12-07 21:50 | XMS REPORT | Continuity of Care Document ---
Author Author [facility] Organization [facility] Address Unknown Phone Unavailable Allergies Active Description Code Type Severity Reaction Onset Reported/Identified Relationship to Patient Clinical Status Yes PCN Drug Allergy N/A N/A Yes SULFA Drug Allergy N/A N/A Yes Penicillins [id number] Drug Allergy Unknown N/A 06/19/2008 Yes Sulfa (Sulfonamide Antibiotics) [id number] Drug Allergy Unknown N/A 2008 Medications Medication Packaging Start Date Stop Date Route Dosage Sig ORAL 10/15/20152015 ORAL 30 3 times a day ORAL 10/15/2015 ORAL daily ORAL 10/15/20152016 ORAL 30 daily ORAL 10/15/2015 ORAL 30 daily ORAL 10/15/2015 ORAL 30 daily ORAL 10/15/2015 ORAL every 4 hours ORAL 10/15/2015 ORAL daily ORAL 10/15/2015 ORAL daily ORAL 10/15/20152016 ORAL 30 daily ORAL 10/15/2015 ORAL 30 daily ORAL 10/16/20152015 ORAL 10 at bedtime ORAL 10/16/20152016 ORAL daily ORAL 09/02/20162016 ORAL 5 daily ORAL 09/10/20162016 ORAL 5 daily Problems Date Dx Coded Attending Type Code [...] E888.1 FALL STRIKING OBJECT NEC 02/21/2013 RAH BLAS MD Ot 244.9 HYPOTHYROIDISM NOS 02/21/2013 RAH BLAS MD Ot 272.4 HYPERLIPIDEMIA NEC/NOS 02/21/2013 RAH BLAS MD Ot 285.9 ANEMIA NOS 02/21/2013 RAH BLAS MD Ot 403.90 HYPTNSV CHR KID DIS, UNSPEC, W CHR KD ST 02/21/2013 RAH BLAS MD Ot 427.31 ATRIAL FIBRILLATION 02/21/2013 RAH BLAS MD Ot 428.0 CONGESTIVE HEART FAILURE NOS 02/21/2013 RAH BLAS MD Ot 428.33 ACUTE CHRONIC DIASTOLIC HRT FAILURE 02/21/2013 RAH BLAS MD Ot 433.10 CAROTID ARTERY OCCLUSION W O CEREBRAL IN 02/21/2013 RAH BLAS MD Ot 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 02/21/2013 RAH BLAS MD Ot 585.3 CHRONIC KIDNEY DISEASE, STAGE III (MODER 02/21/2013 RAH BLAS MD Ot 682.0 CELLULITIS OF FACE 02/21/2013 RAH BLAS MD Ot 715.90 OSTEOARTHROS NOS-UNSPEC 02/21/2013 RAH BLAS MD Ot 780.2 SYNCOPE AND COLLAPSE 02/21/2013 RAH BLAS MD Ot 790.92 COAGULATION PROFILE, ABNORMAL 02/21/2013 RAH BLAS MD Ot 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 PACEMAKER IN SITU 02/21/2013 RAH BLAS MD Ot V58.61 ANTICOAGULANTS,LT,CURRENT USE 03/05/2013 SHAZIA BECEKR POT FEEDER Ot 599.0 URIN TRACT INFECTION NOS 03/05/2013 SHAZIA BECKER POT FEEDER Ot 789.09 ABDOMINAL PAIN, OTHER SPECIFIED SITE 05/17/2013 RAH BLAS MD Ot 244.9 HYPOTHYROIDISM NOS 05/17/2013 RAH BLAS MD Ot 272.4 HYPERLIPIDEMIA NEC/NOS 05/17/2013 RAH BLAS MD Ot 300.00 ANXIETY STATE NOS 05/17/2013 RAH BLAS MD Ot 403.90 HYPTNSV CHR KID DIS, UNSPEC, W CHR KD ST 05/17/2013 RAH BLAS MD Ot 414.01 CORONARY ATHEROSCLEROSIS OF [place] CORON 05/17/2013 RAH BLAS MD Ot 427.31 ATRIAL FIBRILLATION 05/17/2013 RAH BLAS MD Ot 428.0 CONGESTIVE HEART FAILURE NOS 05/17/2013 RAH BLAS MD Ot 428.30 UNSPEC DIASTOLIC HRT FAILURE 05/17/2013 RAH BLAS MD Ot 486 PNEUMONIA, ORGANISM NOS 05/17/2013 RAH BLAS MD Ot 496 CHR AIRWAY OBSTRUCT NEC 05/17/2013 RAH BLAS MD Ot 584.9 ACUTE RENAL FAILURE, UNSPECIFIED 05/17/2013 RAH BLAS MD Ot 585.9 CHRONIC KIDNEY DISEASE, UNSPECIFIED 05/17/2013 RAH BLAS MD Ot 780.79 OTH MALAISE FATIGUE 05/17/2013 RAH BLAS MD Ot V03.82 PROPHYLACTIC VACC AGAINST STREPTOCOCCUS 05/17/2013 RAH BLAS MD Ot 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 PACEMAKER IN SITU 11/30/2013 MARCE ALBARRAN DO Ot 300.00 ANXIETY STATE NOS 11/30/2013 ANDIE ALBARRAN DOA Allan Ot 338.29 OTHER CHRONIC PAIN 11/30/2013 MARCE ALBARRAN DO Ot 724.5 BACKACHE NOS 11/30/2013 MARCE ALBARRAN DO Ot 733.00 OSTEOPOROSIS NOS 11/30/2013 MARCE ALBARRAN DO Ot 813.44 FX LOW RADIUS W ULNA-CL 11/30/2013 MARCE ALBARRAN DO Ot 920 CONTUSION FACE/SCALP/NCK 11/30/2013 MARCE ALBARRAN DO Ot E888.1 FALL STRIKING OBJECT NEC 03/21/2014 RONALDO ESPARZA, JESIKA Brunson Ot V54.12 AFTERCARE HEALING TRAUMATIC FX LOWER ARM 03/21/2014 RONALDO ESPARZA, JESIKA Brunson Ot V57.21 ENCOUNTER FOR OCCUPATIONAL THERAPY 04/26/2015 J LUIS ANAYA POT FEEDER Ot M79.605 04/26/2015 J LUIS ANAYA POT FEEDER Ot R22.42 05/03/2015 J LUIS ANAYA POT FEEDER Ot M79.605 05/03/2015 J LUIS ANAYA POT FEEDER Ot R22.42 01/16/2016 Ot 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 01/16/2016 [...] 401.9 HYPERTENSION NOS 01/16/2016 KARTHIK ESPARZA, RAH Brunson Ot 599.71 GROSS HEMATURIA 01/16/2016 MUNIRA HINOJOSA MD Ot 596.89 OTHER SPECIFIED DISORDERS OF BLADDER 01/16/2016 MUNIRA HINOJOSA MD Ot 599.71 GROSS HEMATURIA 01/16/2016 J LUIS ANAYA POT FEEDER Ot M79.605 PAIN IN LEFT LEG 01/16/2016 J LUIS ANAYA POT FEEDER Ot R22.42 LOCALIZED SWELLING, MASS AND LUMP, [...] 02/13/2017 Ot 401.9 HYPERTENSION NOS 02/13/2017 RAH BLAS MD Ot 599.71 GROSS HEMATURIA 02/13/2017 MUNIRA HINOJOSA MD Ot 596.89 OTHER SPECIFIED DISORDERS OF BLADDER 02/13/2017 MUNIRA HINOJOSA MD Ot 599.71 GROSS HEMATURIA 02/13/2017 J LUIS ANAYA POT FEEDER Ot M79.605 PAIN IN LEFT LEG 02/13/2017 J LUIS ANAYA POT FEEDER Ot R22.42 LOCALIZED SWELLING, MASS AND LUMP, LEFT 02/13/2017 MUNIRA HINOJOSA MD Ot C67.9 MALIGNANT NEOPLASM OF BLADDER, UNSPECIFI 02/18/2017 RAH BLAS MD Ot A04.8 OTHER SPECIFIED BACTERIAL INTESTINAL INF 02/18/2017 RAH BLAS MD Ot A41.1 SEPSIS DUE TO OTHER SPECIFIED STAPHYLOCO 02/18/2017 RAH BLAS MD Ot D64.9 ANEMIA, UNSPECIFIED 02/18/2017 RAH BLAS MD Ot E03.9 HYPOTHYROIDISM, UNSPECIFIED 02/18/2017 RAH BLAS MD Ot E86.0 DEHYDRATION 02/18/2017 RAH BLAS MD Ot E87.1 HYPO-OSMOLALITY AND HYPONATREMIA 02/18/2017 RAH BLAS MD Ot F41.9 ANXIETY DISORDER, UNSPECIFIED 02/18/2017 RAH BLAS MD Ot G47.9 SLEEP DISORDER, UNSPECIFIED 02/18/2017 RAH BLAS MD Ot I12.9 HYPERTENSIVE CHRONIC KIDNEY DISEASE W ST 02/18/2017 RAH BLAS MD Ot J81.0 ACUTE PULMONARY EDEMA 02/18/2017 RAH BLAS MD Ot J81.1 CHRONIC PULMONARY EDEMA 02/18/2017 RAH BLAS MD Ot J98.11 ATELECTASIS 02/18/2017 RAH BLAS MD Ot K44.9 DIAPHRAGMATIC HERNIA WITHOUT OBSTRUCTION 02/18/2017 RAH BLAS MD Ot K59.00 CONSTIPATION, UNSPECIFIED 02/18/2017 RAH BLAS MD Ot K92.2 GASTROINTESTINAL HEMORRHAGE, UNSPECIFIED 02/18/2017 RAH BLAS MD Ot N17.9 ACUTE KIDNEY FAILURE, UNSPECIFIED 02/18/2017 RAH BLAS MD Ot N18.9 CHRONIC KIDNEY DISEASE, UNSPECIFIED 02/18/2017 RAH BLAS MD Ot R09.02 HYPOXEMIA 02/18/2017 RAH BLAS MD Ot R65.20 SEVERE SEPSIS WITHOUT SEPTIC SHOCK 02/18/2017 RAH BLAS MD Ot S52.601A UNSP FRACTURE OF LOWER END OF RIGHT ULNA 02/18/2017 RAH BLAS MD Ot W19.XXXA UNSPECIFIED FALL, INITIAL ENCOUNTER 02/18/2017 RAH BLAS MD Ot Y92.[address] IN UNSP NON-INSTITUT (PRIVATE 02/18/2017 RAH BLAS MD Ot Z23 ENCOUNTER FOR IMMUNIZATION 02/18/2017 RAH BLAS MD Ot Z66 DO NOT RESUSCITATE 02/18/2017 RAH BLAS MD Ot Z79.82 DANCE PROFESSOR (CURRENT) USE OF ASPIRIN 02/18/2017 RAH BLAS MD Ot Z85.51 PERSONAL HISTORY OF MALIGNANT NEOPLASM O 02/18/2017 RAH BLAS MD Ot 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 PACEMAKER 02/19/2017 RAH BLAS MD Ot A41.89 OTHER SPECIFIED SEPSIS 02/19/2017 RAH BLAS MD Ot B97.89 OTH VIRAL AGENTS THE CAUSE OF DISEASE 02/19/2017 RAH BLAS MD Ot E03.9 HYPOTHYROIDISM, UNSPECIFIED 02/19/2017 RAH BLAS MD Ot F41.9 ANXIETY DISORDER, UNSPECIFIED 02/19/2017 RAH BLAS MD Ot G47.9 SLEEP DISORDER, UNSPECIFIED 02/19/2017 RAH BLAS MD Ot I12.9 HYPERTENSIVE CHRONIC KIDNEY DISEASE W ST 02/19/2017 RAH BLAS MD Ot J81.1 CHRONIC PULMONARY EDEMA 02/19/2017 RAH BLAS MD Ot J98.11 ATELECTASIS 02/19/2017 RAH BLAS MD Ot K44.9 DIAPHRAGMATIC HERNIA WITHOUT OBSTRUCTION 02/19/2017 RAH BLAS MD Ot K59.00 CONSTIPATION, UNSPECIFIED 02/19/2017 RAH BLAS MD Ot K92.2 GASTROINTESTINAL HEMORRHAGE, UNSPECIFIED 02/19/2017 RAH BLAS MD Ot N18.9 CHRONIC KIDNEY DISEASE, UNSPECIFIED 02/19/2017 RAH BLAS MD Ot S52.601D UNSP FX LOWER END OF R ULNA, SUBS FOR CL 02/19/2017 RAH BLAS MD Ot W19.XXXD UNSPECIFIED FALL, SUBSEQUENT ENCOUNTER 02/19/2017 RAH BLAS MD Ot Z66 DO NOT RESUSCITATE 02/19/2017 RAH BLAS MD Ot Z79.82 FDC (CURRENT) USE OF ASPIRIN 02/19/2017 RAH BLAS MD Ot 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 PACEMAKER 02/23/2017 RAH BLAS MD Ot A41.89 OTHER SPECIFIED SEPSIS 02/23/2017 RAH BLAS MD Ot B97.89 OTH VIRAL AGENTS THE CAUSE OF DISEASE 02/23/2017 RAH BLAS MD Ot E03.9 HYPOTHYROIDISM, UNSPECIFIED 02/23/2017 RAH BLAS MD Ot F41.9 ANXIETY DISORDER, UNSPECIFIED 02/23/2017 RAH BLAS MD Ot G47.9 SLEEP DISORDER, UNSPECIFIED 02/23/2017 RAH BLAS MD Ot I12.9 HYPERTENSIVE CHRONIC KIDNEY DISEASE W ST 02/23/2017 RAH BLAS MD Ot J81.1 CHRONIC PULMONARY EDEMA 02/23/2017 RAH BLAS MD Ot J98.11 ATELECTASIS 02/23/2017 RAH BLAS MD, Ot K44.9 DIAPHRAGMATIC HERNIA WITHOUT OBSTRUCTION 02/23/2017 RAH BLAS MD Ot K59.00 CONSTIPATION, UNSPECIFIED 02/23/2017 RAH BLAS MD Ot K92.2 GASTROINTESTINAL HEMORRHAGE, UNSPECIFIED 02/23/2017 RAH BLAS MD, Ot N18.9 CHRONIC KIDNEY DISEASE, UNSPECIFIED 02/23/2017 RAH BLAS MD, Ot S52.601D UNSP FX LOWER END OF R ULNA, SUBS FOR CL 02/23/2017 RAH BLAS MD, Ot W19.XXXD UNSPECIFIED FALL, SUBSEQUENT ENCOUNTER 02/23/2017 RAH BLAS MD, Ot Z66 DO NOT RESUSCITATE 02/23/2017 RAH BLAS MD Ot Z79.82 DANCE PROFESSOR (CURRENT) USE OF ASPIRIN 02/23/2017 RAH BLAS MD Ot 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 PACEMAKER 04/04/2017 RAH BLAS MD Ot E03.9 HYPOTHYROIDISM, UNSPECIFIED 04/04/2017 RAH BLAS MD Ot E78.5 HYPERLIPIDEMIA, UNSPECIFIED 04/04/2017 RAH BLAS MD Ot F41.9 ANXIETY DISORDER, UNSPECIFIED 04/04/2017 RAH BLAS MD, Ot I12.9 HYPERTENSIVE CHRONIC KIDNEY DISEASE W ST 04/04/2017 RAH BLAS MD Ot I48.91 UNSPECIFIED ATRIAL FIBRILLATION 04/04/2017 RAH BLAS MD Ot M79.89 OTHER SPECIFIED SOFT TISSUE DISORDERS 04/04/2017 RAH BLAS MD, Ot N18.9 CHRONIC KIDNEY DISEASE, UNSPECIFIED 04/04/2017 RAH BLAS MD Ot Z66 DO NOT RESUSCITATE 04/04/2017 RAH BLAS MD Ot Z85.51 PERSONAL HISTORY OF MALIGNANT NEOPLASM O 04/04/2017 RAH BLAS MD Ot Z88.0 ALLERGY STATUS TO PENICILLIN 04/04/2017 RAH BLAS MD Ot Z88.2 ALLERGY STATUS TO SULFONAMIDES STATUS 04/04/2017 KARTHIK ESPARZA, RAH Brunson Ot Z90.5 ACQUIRED ABSENCE OF KIDNEY 04/04/2017 RAH BLAS MD Ot 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 PACEMAKER 04/29/2017 DARLIN ESPARZA, Phyllis ARCHIBALD Ot I12.9 HYPERTENSIVE CHRONIC KIDNEY DISEASE W ST 04/29/2017 Phyllis SAEED MD Ot N18.3 CHRONIC KIDNEY DISEASE, STAGE 3 (MODERAT 05/06/2017 DARLIN ESPARZA, Phyllis ARCHIBALD Ot I12.9 HYPERTENSIVE CHRONIC KIDNEY DISEASE W ST 05/06/2017 Phyllis SAEED MD Ot N18.3 CHRONIC KIDNEY DISEASE, STAGE 3 (MODERAT 06/01/2017 Phyllis SAEED MD Ot E03.9 HYPOTHYROIDISM, UNSPECIFIED 06/01/2017 Phyllis SAEED MD Ot E78.2 MIXED HYPERLIPIDEMIA 06/01/2017 Phyllis SAEED MD Ot F32.9 MAJOR DEPRESSIVE DISORDER, SINGLE EPISOD 06/01/2017 Phyllis SAEED MD Ot I10 ESSENTIAL (PRIMARY) HYPERTENSION 06/01/2017 Phyllis SAEED MD Ot I48.91 UNSPECIFIED ATRIAL FIBRILLATION 06/01/2017 Phyllis SAEED MD Ot R60.0 LOCALIZED EDEMA 06/01/2017 Phyllis SAEED MD Ot Z79.82 FDC (CURRENT) USE OF ASPIRIN 06/01/2017 Phyllis SAEED MD Ot Z79.899 OTHER FDC (CURRENT) DRUG THERAPY 06/01/2017 Phyllis SAEED MD Ot 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 PACEMAKER 06/19/2017 Phyllis SAEED MD Ot E03.9 HYPOTHYROIDISM, UNSPECIFIED 06/19/2017 Phyllis SAEED MD Ot E78.2 MIXED HYPERLIPIDEMIA 06/19/2017 Phyllis SAEED MD Ot F32.9 MAJOR DEPRESSIVE DISORDER, SINGLE EPISOD 06/19/2017 Phyllis SAEED MD Ot I10 ESSENTIAL (PRIMARY) HYPERTENSION 06/19/2017 Phyllis SAEED MD Ot I48.91 UNSPECIFIED ATRIAL FIBRILLATION 06/19/2017 Phyllis SAEED MD Ot R60.0 LOCALIZED EDEMA 06/19/2017 Phyllis SAEED MD Ot Z79.82 FDC (CURRENT) USE OF ASPIRIN 06/19/2017 Phyllis SAEED MD Ot Z79.899 OTHER DANCE PROFESSOR (CURRENT) DRUG THERAPY 06/19/2017 Phyllis SAEED MD Ot 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 PACEMAKER 06/24/2017 Phyllis SAEED MD Ot E03.9 HYPOTHYROIDISM, UNSPECIFIED 06/24/2017 Phyllis SAEED MD Ot E78.2 MIXED HYPERLIPIDEMIA 06/24/2017 Phyllis SAEED MD Ot F32.9 MAJOR DEPRESSIVE DISORDER, SINGLE EPISOD 06/24/2017 Phyllis SAEED MD Ot I10 ESSENTIAL (PRIMARY) HYPERTENSION 06/24/2017 Phyllis SAEED MD Ot I48.91 UNSPECIFIED ATRIAL FIBRILLATION 06/24/2017 Phyllis SAEED MD Ot R60.0 LOCALIZED EDEMA 06/24/2017 Phyllis SAEED MD Ot Z79.82 DANCE PROFESSOR (CURRENT) USE OF ASPIRIN 06/24/2017 Phyllis SAEED MD Ot Z79.899 OTHER DANCE PROFESSOR (CURRENT) DRUG THERAPY 06/24/2017 Phyllis SAEED MD Ot 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 PACEMAKER 07/06/2017 J LUIS ANAYA APRN Ot R07.81 PLEURODYNIA 07/09/2017 J LUIS ANAYA APRN Ot R07.81 PLEURODYNIA 11/26/2017 Ot 401.9 HYPERTENSION NOS 11/26/2017 KARTHIK ESPARZA, RAH Brunson Ot 599.71 GROSS HEMATURIA 11/26/2017 MUNIRA HINOJOSA MD Ot 596.89 OTHER SPECIFIED DISORDERS OF BLADDER 11/26/2017 MUNIRA HINOJOSA MD Ot 599.71 GROSS HEMATURIA 11/26/2017 J LUIS ANAYA APRN Ot M79.605 PAIN IN LEFT LEG 11/26/2017 J LUIS ANAYA APRN Ot R22.42 LOCALIZED SWELLING, MASS AND LUMP, LEFT 11/26/2017 MUNIRA HINOJOSA MD Ot C67.9 MALIGNANT NEOPLASM OF BLADDER, UNSPECIFI 11/26/2017 Phyllis SAEED MD Ot I12.9 HYPERTENSIVE CHRONIC KIDNEY DISEASE W ST 11/26/2017 Phyllis SAEED MD, Ot N18.3 CHRONIC KIDNEY DISEASE, STAGE 3 (MODERAT 11/26/2017 Phyllis SAEED MD, Ot E03.9 HYPOTHYROIDISM, UNSPECIFIED 11/26/2017 Phyllis SAEED MD Ot E78.2 MIXED HYPERLIPIDEMIA 11/26/2017 Phyllis SAEED MD, Ot F32.9 MAJOR DEPRESSIVE DISORDER, SINGLE EPISOD 11/26/2017 Phyllis SAEED MD Ot I10 ESSENTIAL (PRIMARY) HYPERTENSION 11/26/2017 Phyllis SAEED MD, Ot I48.91 UNSPECIFIED ATRIAL FIBRILLATION 11/26/2017 Phyllis SAEED MD, Ot R60.0 LOCALIZED EDEMA 11/26/2017 Phyllis SAEED MD Ot Z79.82 FDC (CURRENT) USE OF ASPIRIN 11/26/2017 Phyllis SAEED MD, Ot Z79.899 OTHER FDC (CURRENT) DRUG THERAPY 11/26/2017 Phyllis SAEED MD, Ot 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 PACEMAKER 11/26/2017 J LUIS ANAYA APRN Ot R07.81 PLEURODYNIA Procedures Code Description Performed By Performed On [id number] IMMOBILIZATION OF RIGHT LOWER ARM USING 02/16/2017 [id number] INSERTION OF INFUSION DEV INTO SUP VENA 02/17/2017 [id number] ADVENT OF CARDIAC RHYTHM, SINGLE 04/04/2017 Results Test [...] TEXT EXTERNAL SENSISTIVITY REPORTED ON BLOOD CULTURE NRG QUANTITY OF GROWTH Isolated NRG Bacterial blood culture [id number] NR FREE TEXT ENTRY 2 [id number] 02/16 06:25 NRG Bacterial blood culture - 02/13/17 14:28 FREE TEXT EXTERNAL SENSITIVITY REPORTED 02/16 06:25 NRG QUANTITY OF GROWTH Isolated NRG Bacterial blood culture [id number] [facility] Bacterial susceptibility panel - 02/13/17 14:28 Oxacillin [...] (mass/volume) 3.1 g/dL 3.2-4.5 Vancomycin trough - 10/19/17 14:35 Vancomycin trough 17.2 ug/mL 10.0-20.0 Automated [...] Staphylococcus aureus (MRSA) screening culture NEG NRG Serum or plasma renal function panel (Na, K, Cl, CO2, BUN, Cr, glucose,Ca, phos , alb) - 11/26/17 14:20 Serum or plasma sodium measurement (moles/volume) 141 mmol/L 135-145 Serum or plasma potassium measurement (moles/volume) 4.5 mmol/L 3.6-5.0 Serum or plasma chloride measurement (moles/volume) 110 mmol/L 98-107 Carbon dioxide 24 mmol/L 21-32 Serum or plasma anion gap determination (moles/volume) 7 mmol/L 5-14 Serum or plasma urea nitrogen measurement (mass/volume) 34 mg/dL 7-18 Serum or plasma creatinine measurement (mass/volume) 1.79 mg/dL 0.60-1.30 Serum or plasma urea nitrogen/creatinine mass ratio 19 NRG Serum or plasma creatinine measurement with calculation of estimated glomerular filtration rate 27 NRG Serum or plasma glucose measurement (mass/volume) 138 mg/dL 70-105 Serum or plasma calcium measurement (mass/volume) 9.0 mg/dL 8.5-10.1 Serum or plasma albumin measurement (mass/volume) 4.0 g/dL 3.2-4.5 Serum or plasma phosphate measurement (mass/volume) 3.7 mg/dL 2.3-4.7 THYROID STIMULATING HORMONE - 11/26/17 14:20 THYROID STIMULATING HORMONE 1.92 u[iU]/mL 0.35-4.94 Serum or plasma thyroxine (T4) free measurement (mass/volume) - 11/26/17 14:20 Serum or plasma thyroxine (T4) free measurement (mass/volume) 1.11 ng/dL 0.70-1.48 [id number] - 11/26/17 14:20 [id number] 23 % 47-209 Immunoglobulin panel (IgG, IgM, IgA) serum 700 % 71-263 Quantitative urine kappa and lambda free light chains measurement - 11/26/17 14 :20 Quantitative serum kappa light chain measurement 11.04 % 3.30-19.40 Quantitative serum lambda light chain measurement 156.72 % 5.71-26.30 Serum immunoglobulin free kappa light chains/immunoglobulin lambda light chains mass ratio 0.07 % 0.26-1.65 Encounters ACCT No. Visit Date/Time Discharge Status Pt. Type Provider Facility Loc./Unit Complaint [id number] 11/26/2017 14:26:00 11/26/2017 23:59:59 CLS Outpatient RAH BLAS MD [facility] LAB [id number] 11/26/2017 14:22:00 11/26/2017 23:59:59 CLS Outpatient NI SAEED MD [facility] LAB [id number] 11/26/2017 13:51:00 11/26/2017 23:59:59 CLS Outpatient OMI ESPARZA, LIONEL [facility] ONC [id number] 06/12/2017 11:32:00 06/12/2017 23:59:59 CLS Outpatient J LUIS ANAYA APRN [facility] RAD R07.81 [id number] 05/28/2017 09:13:00 05/28/2017 23:59:59 CLS Outpatient Phyllis SAEED MD [facility] CATH AFE RVR [id number] 04/06/2017 12:45:00 04/06/2017 23:59:59 CLS Outpatient Phyllis SAEED MD [facility] RAD N18.3 [id number] 04/03/2017 14:05:00 04/04/2017 17:50:00 DIS Inpatient RAH BLAS MD [facility] ICU A-FIB W/ RVR [id number] 02/18/2017 09:23:00 02/23/2017 14:40:00 DIS Inpatient RAH BLAS MD [facility] 4TH SWB-SEPSIS,RENAL FAILURE, HYPERTENSION,WEAKNESS [id number] 02/13/2017 17:00:00 02/18/2017 09:15:00 DIS Inpatient RAH BLAS MD [facility] 4TH HYPOTENSION,UTI,DIARRHEA, RT ULNA FX [id number] 01/16/2016 12:47:00 01/16/2016 23:59:59 CLS Outpatient MUNIRA HINOJOSA MD [facility] RAD BLAD CA-C67.9 [id number] 04/02/2015 16:35:00 04/02/2015 23:59:59 CLS Outpatient J LUIS ANAYA APRN [facility] RAD LEFT LOWER EXTREMITY SWELLING,POPLITEAL PAIN [id number] 03/02/2014 12:50:00 03/21/2014 13:29:00 DIS Outpatient JESIKA HIGGINS MD [facility] REHAB S/P L DISTAL RADIUS FX [id number] 11/30/2013 07:32:00 11/30/2013 09:26:00 DIS Emergency MARCE ALBARRAN DO [facility] ER FALL/LEFT WRIST INJURY [id number] 09/16/2013 07:56:00 09/16/2013 23:59:59 CLS Outpatient MUNIRA HINOJOSA MD [facility] RAD GROSS HEMATURIA [id number] 08/31/2013 11:33:00 08/31/2013 23:59:59 CLS Outpatient RAH BLAS MD [facility] LAB GROSS HEMATURIA [id number] 05/14/2013 11:30:00 05/17/2013 11:42:00 DIS Inpatient RAH BLAS MD [facility] 4TH PNEUMONIA BILAT,ACUTE RENAL FAILURE,VOLUME OVERLOA [id number] 03/05/2013 13:46:00 03/05/2013 16:21:00 DIS Emergency SHAZIA BECKER APRN [facility] ER POSS KIDNEY INFECTION [id number] 02/16/2013 10:45:00 02/21/2013 16:00:00 DIS Inpatient RAH BLAS MD [facility] 4TH SYNCOPE,NECK SWELLING [id number] 01/16/2016 12:46:00 Document Registration [id number] 01/16/2016 12:46:00 Document Registration [id number] 01/16/2016 12:46:00 Document Registration [id number] 07/05/2012 10:05:00 Document Registration [id number] 03/03/2012 08:54:00 Document Registration [id number] 10/16/2011 09:55:00 Document Registration [id number] 08/08/2011 11:34:00 Document Registration [id number] 07/17/2011 12:43:00 Document Registration [id number] 06/17/2011 08:34:00 Document Registration [id number] 06/14/2011 09:01:00 Document Registration [id number] 06/10/2011 12:34:00 Document Registration [id number] 02/20/2011 08:16:00 Document Registration [id number] 08/15/2010 08:00:00 Document Registration [id number] 03/12/2017 23:17:50 03/12/2017 23:59:59 [facility] Outpatient Rah Blas [id number] 01/14/2017 13:27:47 01/14/2017 13:27:47 DIS Unknown
== END 2017-12-07 11:00 | disposition home or self-care (01) ==
LOC: SDC 07:01 → EDSTATUS 08:45 → RAD 11:00 → SDC 11:00
PROVIDERS: ATTEND Internal Medicine Hematology & Oncology
DX: C90.00 Multiple myeloma not having achieved remission (principal); I48.2 Chronic atrial fibrillation; N28.9 Disorder of kidney and ureter, unspecified; D64.9 Anemia, unspecified; I10 Essential (primary) hypertension; Z95.0 Presence of cardiac pacemaker; Z79.01 Long term (current) use of anticoagulants
CPT/HCPCS: 36415; 38222; 77012; 77075; 85007; 85025; 85045; 85610; 85730

== ENCOUNTER 2017-12-15 13:27 | Outpatient (RCR) | payer MEDICARE, BC ==
[2017-11-26 14:47] LABS: BASOPHILS % (AUTO) 0 % (0-10); EOSINOPHILS # (AUTO) 0.1 10^3/uL (0.0-0.3); EOSINOPHILS % (AUTO) 1 % (0-10); HEMATOCRIT 32 % (35-52); HEMOGLOBIN 10.8 G/DL (11.5-16.0); LYMPHOCYTES # (AUTO) 1.2 X 10^3 (1.0-4.0); LYMPHOCYTES % (AUTO) 17 % (12-44); MEAN CORPUSCULAR HEMOGLOBIN 30 PG (25-34); MEAN CORPUSCULAR HGB CONC 34 G/DL (32-36); MEAN CORPUSCULAR VOLUME 89 FL (80-99); MEAN PLATELET VOLUME 10.2 FL (7.4-10.4); MONOCYTES # (AUTO) 0.6 X 10^3 (0.0-1.0); MONOCYTES % (AUTO) 9 % (0-12); NEUTROPHILS # (AUTO) 5.3 X 10^3 (1.8-7.8); NEUTROPHILS % (AUTO) 73 % (42-75); PLATELET COUNT 260 10^3/uL (130-400); RED BLOOD COUNT 3.61 10^6/uL (4.35-5.85); RED CELL DISTRIBUTION WIDTH 14.6 % (10.0-14.5); WHITE BLOOD COUNT 7.2 10^3/uL (4.3-11.0)
[2017-11-26 15:08] LABS: BILIRUBIN,TOTAL 0.7 MG/DL (0.1-1.0); CREATININE SERUM 1.82 MG/DL (0.60-1.30); POTASSIUM 4.3 MMOL/L (3.6-5.0); TOTAL PROTEIN 6.6 GM/DL (6.4-8.2)
[~2017-12-15 13:27] MED LIST changes: -FLAX1000 PO; +FLAX10004 PO
[2018-02-04 12:11] LABS: BASOPHILS % (AUTO) 0 % (0-10); EOSINOPHILS # (AUTO) 0.2 10^3/uL (0.0-0.3); EOSINOPHILS % (AUTO) 3 % (0-10); HEMATOCRIT 33 % (35-52); HEMOGLOBIN 11.2 G/DL (11.5-16.0); LYMPHOCYTES # (AUTO) 0.9 X 10^3 (1.0-4.0); LYMPHOCYTES % (AUTO) 13 % (12-44); MEAN CORPUSCULAR HEMOGLOBIN 30 PG (25-34); MEAN CORPUSCULAR HGB CONC 34 G/DL (32-36); MEAN CORPUSCULAR VOLUME 90 FL (80-99); MEAN PLATELET VOLUME 9.5 FL (7.4-10.4); MONOCYTES # (AUTO) 0.7 X 10^3 (0.0-1.0); MONOCYTES % (AUTO) 10 % (0-12); NEUTROPHILS # (AUTO) 5.4 X 10^3 (1.8-7.8); NEUTROPHILS % (AUTO) 74 % (42-75); PLATELET COUNT 266 10^3/uL (130-400); RED BLOOD COUNT 3.73 10^6/uL (4.35-5.85); RED CELL DISTRIBUTION WIDTH 14.6 % (10.0-14.5); WHITE BLOOD COUNT 7.2 10^3/uL (4.3-11.0)
[2018-02-04 12:31] LABS: ALBUMIN 3.9 GM/DL (3.2-4.5); BILIRUBIN,TOTAL 0.5 MG/DL (0.1-1.0); CALCIUM 9.3 MG/DL (8.5-10.1); CREATININE SERUM 1.44 MG/DL (0.60-1.30); POTASSIUM 4.7 MMOL/L (3.6-5.0); TOTAL PROTEIN 6.6 GM/DL (6.4-8.2)
[2018-02-08 17:12] LABS: IMMUNOFIX PATH REPORT NUMBER Complete (Complete)
== END 2018-02-04 12:01 | disposition home or self-care (01) ==
LOC: ONC 13:27
PROVIDERS: ATTEND Internal Medicine Hematology & Oncology
DX: N17.9 Acute kidney failure, unspecified (principal); R76.9 Abnormal immunological finding in serum, unspecified; I48.2 Chronic atrial fibrillation; D64.9 Anemia, unspecified; I10 Essential (primary) hypertension; E03.9 Hypothyroidism, unspecified; Z95.0 Presence of cardiac pacemaker; Z79.01 Long term (current) use of anticoagulants; Z79.899 Other long term (current) drug therapy
CPT/HCPCS: 36415; 80053; 82784; 83883; 85025; 86334; 99213; 99214

== ENCOUNTER 2018-02-14 08:49 | Emergency (ER) | payer MEDICARE, BC ==
[~2018-02-14] VITALS: Ht 165.1 cm; Wt 68.0 kg
--- OUTSIDE RECORDS SUMMARY | 2018-02-14 09:04 | XMS REPORT | Continuity of Care Document ---
Author Author [facility] Organization [facility] Address Unknown Phone Unavailable Allergies Active Description Code Type Severity Reaction Onset Reported/Identified Relationship to Patient Clinical Status Yes PCN Drug Allergy N/A N/A Yes SULFA Drug Allergy N/A N/A Yes Penicillins [id number] Drug Allergy Unknown N/A 06/19/2008 Yes Sulfa (Sulfonamide Antibiotics) [id number] Drug Allergy Unknown N/A 2008 Medications Medication [...] MD Ot 682.0 CELLULITIS OF FACE 02/21/2013 RHA BLAS MD Ot 715.90 OSTEOARTHROS NOS-UNSPEC 02/21/2013 RAH BLAS MD Ot 780.2 SYNCOPE AND COLLAPSE 02/21/2013 RAH BLAS MD Ot 790.92 COAGULATION PROFILE, ABNORMAL 02/21/2013 RAH BLAS MD Ot 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 PACEMAKER IN SITU 02/21/2013 RAH BLAS MD Ot V58.61 ANTICOAGULANTS,LT,CURRENT USE 03/05/2013 SHAZIA BECKER GARAGE DOOR OPENER INSTALLER Ot 599.0 URIN TRACT INFECTION NOS 03/05/2013 SHAZIA BECKER GARAGE DOOR OPENER INSTALLER Ot 789.09 ABDOMINAL PAIN, OTHER SPECIFIED SITE 05/17/2013 RAH BLAS MD Ot 244.9 HYPOTHYROIDISM NOS 05/17/2013 RAH BLAS MD Ot 272.4 HYPERLIPIDEMIA NEC/NOS 05/17/2013 RAH BLAS MD Ot 300.00 ANXIETY STATE NOS 05/17/2013 RAH BLAS MD Ot 403.90 HYPTNSV CHR KID DIS, UNSPEC, W CHR KD ST 05/17/2013 RAH BLAS MD Ot 414.01 CORONARY ATHEROSCLEROSIS OF [place] CORON 05/17/2013 RAH BLAS MD Ot 427.31 [...] FOR OCCUPATIONAL THERAPY 04/26/2015 J LUIS ANAYA GARAGE DOOR OPENER INSTALLER Ot M79.605 04/26/2015 J LUIS ANAYA GARAGE DOOR OPENER INSTALLER Ot R22.42 05/03/2015 J LUIS ANAYA GARAGE DOOR OPENER INSTALLER Ot M79.605 05/03/2015 J LUIS ANAYA GARAGE DOOR OPENER INSTALLER Ot R22.42 01/16/2016 Ot 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 01/16/2016 [...] 599.71 GROSS HEMATURIA 01/16/2016 J LUIS ANAYA GARAGE DOOR OPENER INSTALLER Ot M79.605 PAIN IN LEFT LEG 01/16/2016 J LUIS ANAYA GARAGE DOOR OPENER INSTALLER Ot R22.42 LOCALIZED SWELLING, MASS AND LUMP, [...] 599.71 GROSS HEMATURIA 02/13/2017 J LUIS ANAYA GARAGE DOOR OPENER INSTALLER Ot M79.605 PAIN IN LEFT LEG 02/13/2017 J LUIS ANAYA GARAGE DOOR OPENER INSTALLER Ot R22.42 LOCALIZED SWELLING, MASS AND LUMP, [...] RESUSCITATE 02/18/2017 RAH BLAS MD Ot Z79.82 CERTIFIED PROFESSIONAL ERGONOMIST (CURRENT) USE OF ASPIRIN 02/18/2017 RAH BLAS [...] RESUSCITATE 02/19/2017 RAH BLAS MD Ot Z79.82 ASSISTED (CURRENT) USE OF ASPIRIN 02/19/2017 RAH BLAS [...] N18.9 CHRONIC KIDNEY DISEASE, UNSPECIFIED 02/23/2017 RAH LBAS MD, Ot S52.601D UNSP FX LOWER END OF R ULNA, SUBS FOR CL 02/23/2017 RAH BLAS MD, Ot W19.XXXD UNSPECIFIED FALL, SUBSEQUENT ENCOUNTER 02/23/2017 RAH BLAS MD, Ot Z66 DO NOT RESUSCITATE 02/23/2017 RAH BLAS MD Ot Z79.82 CERTIFIED PROFESSIONAL ERGONOMIST (CURRENT) USE OF ASPIRIN 02/23/2017 RAH BLAS [...] EDEMA 06/01/2017 Phyllis SAEED MD Ot Z79.82 ASSISTED (CURRENT) USE OF ASPIRIN 06/01/2017 Phyllis SAEED MD Ot Z79.899 OTHER ASSISTED (CURRENT) DRUG THERAPY 06/01/2017 Phyllis SAEED MD [...] EDEMA 06/19/2017 Phyllis SAEED MD Ot Z79.82 ASSISTED (CURRENT) USE OF ASPIRIN 06/19/2017 Phyllis SAEED MD Ot Z79.899 OTHER CERTIFIED PROFESSIONAL ERGONOMIST (CURRENT) DRUG THERAPY 06/19/2017 Phyllis SAEED MD [...] EDEMA 06/24/2017 Phyllis SAEED MD Ot Z79.82 CERTIFIED PROFESSIONAL ERGONOMIST (CURRENT) USE OF ASPIRIN 06/24/2017 Phyllis SAEED MD Ot Z79.899 OTHER CERTIFIED PROFESSIONAL ERGONOMIST (CURRENT) DRUG THERAPY 06/24/2017 Phyllis SAEED MD [...] C67.9 MALIGNANT NEOPLASM OF BLADDER, UNSPECIFI 11/26/2017 DARLIN ESPARZA, Phyllis ARCHIBALD Ot I12.9 HYPERTENSIVE CHRONIC KIDNEY DISEASE W ST 11/26/2017 DARLIN ESPARZA, Phyllis ARCHIBALD Ot N18.3 CHRONIC KIDNEY DISEASE, STAGE 3 (MODERAT 11/26/2017 DARLIN ESPARZA, Phyllis ARCHIBALD Ot E03.9 HYPOTHYROIDISM, UNSPECIFIED 11/26/2017 DARLIN ESPARZA, Phyllis ARCHIBALD Ot E78.2 MIXED HYPERLIPIDEMIA 11/26/2017 DARLIN ESPARZA, Phyllis ARCHIBALD Ot F32.9 MAJOR DEPRESSIVE DISORDER, SINGLE EPISOD 11/26/2017 DARLIN ESPARZA, Phyllis ARCHIBALD Ot I10 ESSENTIAL (PRIMARY) HYPERTENSION 11/26/2017 DARLIN ESPARZA, Phyllis ARCHIBALD Ot I48.91 UNSPECIFIED ATRIAL FIBRILLATION 11/26/2017 Phyllis SAEED MD Ot R60.0 LOCALIZED EDEMA 11/26/2017 Phyllis SAEED MD Ot Z79.82 ASSISTED (CURRENT) USE OF ASPIRIN 11/26/2017 Phyllis SAEED MD Ot Z79.899 OTHER ASSISTED (CURRENT) DRUG THERAPY 11/26/2017 Phyllis SAEED MD Ot 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 PACEMAKER 11/26/2017 J LUIS ANAYA APRN Ot R07.81 PLEURODYNIA 11/30/2017 NI SAEED MD Ot N28.9 DISORDER OF KIDNEY AND URETER, UNSPECIFI 11/30/2017 RAH BLAS MD Ot R53.83 OTHER FATIGUE 11/30/2017 RAH BLAS MD Ot Z86.39 PERSONAL HISTORY OF ENDO, NUTRITIONAL AN 12/07/2017 LIONEL BRAGA MD Ot C90.00 MULTIPLE MYELOMA NOT HAVING ACHIEVED REM 12/07/2017 LIONEL BRAGA MD, Ot D64.9 ANEMIA, UNSPECIFIED 12/07/2017 LIONEL BRAGA MD, Ot I10 ESSENTIAL (PRIMARY) HYPERTENSION 12/07/2017 LIONEL BRAGA MD Ot I48.2 CHRONIC ATRIAL FIBRILLATION 12/07/2017 LIONEL RBAGA MD, Ot N28.9 DISORDER OF KIDNEY AND URETER, UNSPECIFI 12/07/2017 LIONEL BRAGA MD Ot Z79.01 CERTIFIED PROFESSIONAL ERGONOMIST (CURRENT) USE OF ANTICOAGULANT 12/07/2017 LIONEL BRAGA MD Ot 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 PACEMAKER 12/18/2017 DARLIN ESPARZA, NI R Ot N28.9 DISORDER OF KIDNEY AND URETER, UNSPECIFI 12/18/2017 KARTHIK ESPARZA, RAH A Ot R53.83 OTHER FATIGUE 12/18/2017 KARTHIK ESPARZA, RAH A Ot Z86.39 PERSONAL HISTORY OF ENDO, NUTRITIONAL AN 12/22/2017 LIONEL BRAGA MD, Ot D64.9 ANEMIA, UNSPECIFIED 12/22/2017 LIONEL BRAGA MD, Ot E03.9 HYPOTHYROIDISM, UNSPECIFIED 12/22/2017 LIONEL BRAGA MD Ot I10 ESSENTIAL (PRIMARY) HYPERTENSION 12/22/2017 LIONEL BRAGA MD Ot I48.2 CHRONIC ATRIAL FIBRILLATION 12/22/2017 LIONEL BRAGA MD Ot N17.9 ACUTE KIDNEY FAILURE, UNSPECIFIED 12/22/2017 LIONEL BRAGA MD Ot R76.9 ABNORMAL IMMUNOLOGICAL FINDING IN SERUM, 12/22/2017 LIONEL BRAGA MD Ot Z79.01 ASSISTED (CURRENT) USE OF ANTICOAGULANT 12/22/2017 LIONEL BRAGA MD Ot Z79.899 OTHER CERTIFIED PROFESSIONAL ERGONOMIST (CURRENT) DRUG THERAPY 12/22/2017 LIONEL BRAGA MD Ot 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 PACEMAKER 12/31/2017 LIONEL BRAGA MD Ot D64.9 ANEMIA, UNSPECIFIED 12/31/2017 LIONEL BRAGA MD Ot E03.9 HYPOTHYROIDISM, UNSPECIFIED 12/31/2017 LIONEL BRAGA MD Ot I10 ESSENTIAL (PRIMARY) HYPERTENSION 12/31/2017 LIONEL BRAGA MD Ot I48.2 CHRONIC ATRIAL FIBRILLATION 12/31/2017 LIONEL BRAGA MD Ot N17.9 ACUTE KIDNEY FAILURE, UNSPECIFIED 12/31/2017 LIONEL BRAGA MD Ot R76.9 ABNORMAL IMMUNOLOGICAL FINDING IN SERUM, 12/31/2017 LIONEL BRAGA MD Ot Z79.01 CERTIFIED PROFESSIONAL ERGONOMIST (CURRENT) USE OF ANTICOAGULANT 12/31/2017 LIONEL BRAGA MD Ot Z79.899 OTHER CERTIFIED PROFESSIONAL ERGONOMIST (CURRENT) DRUG THERAPY 12/31/2017 LIONEL BRAGA MD Ot 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 PACEMAKER 02/04/2018 LIONEL BRAGA MD, Ot D64.9 ANEMIA, UNSPECIFIED 02/04/2018 LIONEL BRAGA MD, Ot E03.9 HYPOTHYROIDISM, UNSPECIFIED 02/04/2018 LIONEL BRAGA MD Ot I10 ESSENTIAL (PRIMARY) HYPERTENSION 02/04/2018 LIONEL BRAGA MD Ot I48.2 CHRONIC ATRIAL FIBRILLATION 02/04/2018 LIONEL BRAGA MD, Ot N17.9 ACUTE KIDNEY FAILURE, UNSPECIFIED 02/04/2018 LIONEL BRAGA MD, Ot R76.9 ABNORMAL IMMUNOLOGICAL FINDING IN SERUM, 02/04/2018 LIONEL BRAGA MD, Ot Z79.01 CERTIFIED PROFESSIONAL ERGONOMIST (CURRENT) USE OF ANTICOAGULANT 02/04/2018 LIONEL BRAGA MD, Ot Z79.899 OTHER CERTIFIED PROFESSIONAL ERGONOMIST (CURRENT) DRUG THERAPY 02/04/2018 LIONEL BRAGA MD, Ot 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 PACEMAKER 02/04/2018 RAH BLAS MD Ot 599.71 GROSS HEMATURIA 02/04/2018 MUNIRA HINOJOSA MD Ot 596.89 OTHER SPECIFIED DISORDERS OF BLADDER 02/04/2018 MUNIRA HINOJOSA MD Ot 599.71 GROSS HEMATURIA 02/04/2018 J LUIS ANAYA APRN Ot M79.605 PAIN IN LEFT LEG 02/04/2018 J LUIS ANAYA APRN Ot R22.42 LOCALIZED SWELLING, MASS AND LUMP, LEFT 02/04/2018 MUNIRA HINOJOSA MD Ot C67.9 MALIGNANT NEOPLASM OF BLADDER, UNSPECIFI 02/04/2018 Phyllis SAEED MD, Ot I12.9 HYPERTENSIVE CHRONIC KIDNEY DISEASE W ST 02/04/2018 Phyllis SAEED MD, Ot N18.3 CHRONIC KIDNEY DISEASE, STAGE 3 (MODERAT 02/04/2018 Phyllis SAEED MD Ot E03.9 HYPOTHYROIDISM, UNSPECIFIED 02/04/2018 Phyllis SAEED MD Ot E78.2 MIXED HYPERLIPIDEMIA 02/04/2018 Phyllis SAEED MD, Ot F32.9 MAJOR DEPRESSIVE DISORDER, SINGLE EPISOD 02/04/2018 Phyllis SAEED MD Ot I10 ESSENTIAL (PRIMARY) HYPERTENSION 02/04/2018 KHALID MD, M CRISTELA Ot I48.91 UNSPECIFIED ATRIAL FIBRILLATION 02/04/2018 Phyllis SAEED MD Ot R60.0 LOCALIZED EDEMA 02/04/2018 Phyllis SAEED MD Ot Z79.82 ASSISTED (CURRENT) USE OF ASPIRIN 02/04/2018 Phyllis SAEED MD Ot Z79.899 OTHER ASSISTED (CURRENT) DRUG THERAPY 02/04/2018 Phyllis SAEED MD, Ot 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 PACEMAKER 02/04/2018 J LUIS ANAYA APRN Ot R07.81 PLEURODYNIA 02/04/2018 NI SAEED MD Ot N28.9 DISORDER OF KIDNEY AND URETER, UNSPECIFI 02/04/2018 RAH BLAS MD Ot R53.83 OTHER FATIGUE 02/04/2018 RAH BLAS MD Ot Z86.39 PERSONAL HISTORY OF ENDO, NUTRITIONAL AN 02/04/2018 LIONEL BRAGA MD, Ot D64.9 ANEMIA, UNSPECIFIED 02/04/2018 LIONEL BRAGA MD, Ot E03.9 HYPOTHYROIDISM, UNSPECIFIED 02/04/2018 LIONEL BRAGA MD Ot I10 ESSENTIAL (PRIMARY) HYPERTENSION 02/04/2018 LIONEL BRAGA MD, Ot I48.2 CHRONIC ATRIAL FIBRILLATION 02/04/2018 LIONEL BRAGA MD, Ot N17.9 ACUTE KIDNEY FAILURE, UNSPECIFIED 02/04/2018 LIONEL BRAGA MD, Ot R76.9 ABNORMAL IMMUNOLOGICAL FINDING IN SERUM, 02/04/2018 LIONEL BRAGA MD, Ot Z79.01 CERTIFIED PROFESSIONAL ERGONOMIST (CURRENT) USE OF ANTICOAGULANT 02/04/2018 LIONEL BRAGA MD, Ot Z79.899 OTHER CERTIFIED PROFESSIONAL ERGONOMIST (CURRENT) DRUG THERAPY 02/04/2018 LIONEL BRAGA MD Ot 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 PACEMAKER 02/05/2018 LIONEL BRAGA MD, Ot D64.9 ANEMIA, UNSPECIFIED 02/05/2018 LIONEL BRAGA MD, Ot E03.9 HYPOTHYROIDISM, UNSPECIFIED 02/05/2018 LIONEL BRAGA MD Ot I10 ESSENTIAL (PRIMARY) HYPERTENSION 02/05/2018 LIONEL BRAGA MD, Ot I48.2 CHRONIC ATRIAL FIBRILLATION 02/05/2018 LIONEL BRAGA MD, Ot N17.9 ACUTE KIDNEY FAILURE, UNSPECIFIED 02/05/2018 LIONEL BRAGA MD, Ot R76.9 ABNORMAL IMMUNOLOGICAL FINDING IN SERUM, 02/05/2018 LIONEL BRAGA MD, Ot Z79.01 ASSISTED (CURRENT) USE OF ANTICOAGULANT 02/05/2018 LIONEL BRAGA MD, Ot Z79.899 OTHER CERTIFIED PROFESSIONAL ERGONOMIST (CURRENT) DRUG THERAPY 02/05/2018 LIONEL BRAGA MD, Ot 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 PACEMAKER Procedures Code Description Performed By Performed On [id number] IMMOBILIZATION OF RIGHT LOWER ARM USING 02/16/2017 [id number] INSERTION OF INFUSION DEV INTO SUP VENA 02/17/2017 [id number] TEMPLE OF CARDIAC RHYTHM, SINGLE 04/04/2017 Results Test [...] OF GROWTH Isolated NRG Bacterial blood culture [id number] NRG FREE TEXT ENTRY 2 [id number] 02/16 06:25 NRG Bacterial blood culture - 02/13/17 14:28 FREE TEXT EXTERNAL SENSITIVITY REPORTED 02/16 06:25 NRG QUANTITY OF GROWTH Isolated NRG Bacterial blood culture [id number] NR Bacterial susceptibility panel - 02/13/17 14:28 Oxacillin [...] (T4) free measurement (mass/volume) 1.11 ng/dL 0.70-1.48 [id number] - 11/26/17 14:20 [id number] 23 % 47-209 Immunoglobulin panel (IgG, IgM, IgA) serum 700 % 71-263 Quantitative urine kappa and lambda free light chains measurement - 11/26/17 14 :20 Quantitative serum kappa light chain measurement 11.04 % 3.30-19.40 Quantitative serum lambda light chain measurement 156.72 % 5.71-26.30 Serum immunoglobulin free kappa light chains/immunoglobulin lambda light chains mass ratio 0.07 % 0.26-1.65 Complete blood count (CBC) with automated white blood cell (WBC) differential - 12/07/17 07:20 Blood leukocytes automated count (number/volume) 7.2 10*3/uL 4.3-11.0 Blood erythrocytes automated count (number/volume) 3.56 10*6/uL 4.35-5.85 Venous blood hemoglobin measurement (mass/volume) 10.5 g/dL 11.5-16.0 Blood hematocrit (volume fraction) 32 % 35-52 Automated erythrocyte mean corpuscular volume 90 [foz_us] 80-99 Automated erythrocyte mean corpuscular hemoglobin (mass per erythrocyte) 29 pg 25-34 Automated erythrocyte mean corpuscular hemoglobin concentration measurement ( mass/volume) 33 g/dL 32-36 Automated erythrocyte distribution width ratio 14.9 % 10.0-14.5 Automated blood platelet count (count/volume) 258 10*3/uL 130-400 Automated blood platelet mean volume measurement 9.4 [foz_us] 7.4-10.4 Automated blood neutrophils/100 leukocytes 73 % 42-75 Automated blood lymphocytes/100 leukocytes 15 % 12-44 Blood monocytes/100 leukocytes 10 % 0-12 Automated blood eosinophils/100 leukocytes 1 % 0-10 Automated blood basophils/100 leukocytes 0 % 0-10 Blood neutrophils automated count (number/volume) 5.3 10*3 1.8-7.8 Blood lymphocytes automated count (number/volume) 1.1 10*3 1.0-4.0 Blood monocytes automated count (number/volume) 0.7 10*3 0.0-1.0 Automated eosinophil count 0.1 10*3/uL 0.0-0.3 Automated blood basophil count (count/volume) 0.0 10*3/uL 0.0-0.1 PT panel in platelet poor plasma by coagulation assay - 12/07/17 07:20 Prothrombin time (PT) in platelet poor plasma by coagulation assay 13.1 s 12.2-14.7 INR in platelet poor plasma or blood by coagulation assay 1.0 0.8-1.4 Activated partial thromboplastin time (aPTT) in platelet poor plasma bycoagulation assay - 12/07/17 07:20 Activated partial thromboplastin time (aPTT) in platelet poor plasma bycoagulation assay 27 s 24-35 Blood manual differential performed detection - 12/07/17 07:20 Blood monocytes/100 leukocytes 5 % NRG Manual blood segmented neutrophils/100 leukocytes 70 % NRG Blood band neutrophils/100 leukocytes 0 % NRG Manual blood lymphocytes/100 leukocytes 22 % NRG Manual eosinophils/100 leukocytes in nose 3 % NRG Manual blood basophils/100 leukocytes 0 % NRG Blood erythrocyte morphology finding identification NORMAL NRG Automated reticulocyte percentage - 12/07/17 07:20 Blood reticulocytes count (number/volume) 72 10*9/L 24- 90 Blood reticulocytes/100 erythrocytes 2.01 % 0.50-2.40 Encounters ACCT No. Visit Date/Time Discharge Status Pt. Type Provider Facility Loc./Unit Complaint [id number] 02/09/2018 10:11:00 02/09/2018 23:59:59 CLS Outpatient LIONEL BRAGA MD [facility] ONC [id number] 12/15/2017 13:27:00 02/04/2018 12:01:00 DIS Outpatient LIONEL BRAGA MD [facility] ONC [id number] 12/07/2017 08:45:00 12/07/2017 23:59:59 CLS Outpatient LIONEL BRAGA MD [facility] SDC MULTIPLE MYCLOMA [id number] 11/26/2017 14:26:00 11/26/2017 23:59:59 CLS Outpatient RAH BLAS MD [facility] LAB [id number] 11/26/2017 14:22:00 11/26/2017 23:59:59 CLS Outpatient NI SAEED MD [facility] LAB [id number] 06/12/2017 11:32:00 06/12/2017 23:59:59 CLS Outpatient J LUIS ANAYA APRN [facility] RAD R07.81 [id number] 05/28/2017 09:13:00 05/28/2017 23:59:59 CLS Outpatient Phyllis SAEED MD [facility] AFE RVR [id number] 04/06/2017 12:45:00 04/06/2017 23:59:59 CLS Outpatient Phyllis SAEED MD [facility] RAD N18.3 [id number] 04/03/2017 14:05:00 04/04/2017 17:50:00 DIS Inpatient RAH BLAS MD [facility] ICU A-FIB W/ RVR [id number] 02/18/2017 09:23:00 02/23/2017 14:40:00 DIS Inpatient RAH BLAS MD [facility] 4TH SWB-SEPSIS,RENAL FAILURE, HYPERTENSION,WEAKNESS [id number] 02/13/2017 17:00:00 02/18/2017 09:15:00 DIS Inpatient RAH BLAS MD [facility] 4TH HYPOTENSION,UTI,DIARRHEA, RT ULNA FX [id number] 01/16/2016 12:47:00 01/16/2016 23:59:59 CLS Outpatient MUNIRA HINOJOSA MD [facility] RAD BLAD CA-C67.9 [id number] 04/02/2015 16:35:00 04/02/2015 23:59:59 CLS Outpatient J LUIS ANAYA APRN [facility] RAD LEFT LOWER EXTREMITY SWELLING,POPLITEAL PAIN [id number] 03/02/2014 12:50:00 03/21/2014 13:29:00 DIS Outpatient JESIKA HIGGINS MD [facility] REHAB S/P L DISTAL RADIUS FX [id number] 11/30/2013 07:32:00 11/30/2013 09:26:00 DIS Emergency AVIS MARCE DONOVAN [facility] ER FALL/LEFT WRIST INJURY [id number] 09/16/2013 07:56:00 09/16/2013 23:59:59 CLS Outpatient MUNIRA HINOJOSA MD [facility] RAD GROSS HEMATURIA [id number] 08/31/2013 11:33:00 08/31/2013 23:59:59 CLS Outpatient RAH BLAS MD [facility] LAB GROSS HEMATURIA [id number] 05/14/2013 11:30:00 05/17/2013 11:42:00 DIS Inpatient RAH BLAS MD [facility] 4TH PNEUMONIA BILAT,ACUTE RENAL FAILURE,VOLUME OVERLOA [id number] 03/05/2013 13:46:00 03/05/2013 16:21:00 DIS Emergency SHAZIA BECKER APRN [facility] ER POSS KIDNEY INFECTION [id number] 02/16/2013 10:45:00 02/21/2013 16:00:00 DIS Inpatient RAH BLAS MD [facility] 4TH SYNCOPE,NECK SWELLING [id number] 01/16/2016 12:46:00 Document Registration [id number] 01/16/2016 12:46:00 Document Registration [id number] 01/16/2016 12:46:00 Document Registration [id number] 07/05/2012 10:05:00 Document Registration [id number] 03/03/2012 08:54:00 Document Registration [id number] 10/16/2011 09:55:00 Document Registration [id number] 08/08/2011 11:34:00 Document Registration [id number] 07/17/2011 12:43:00 Document Registration [id number] 06/17/2011 08:34:00 Document Registration [id number] 06/14/2011 09:01:00 Document Registration [id number] 06/10/2011 12:34:00 Document Registration [id number] 02/20/2011 08:16:00 Document Registration [id number] 08/15/2010 08:00:00 Document Registration [id number] 03/12/2017 23:17:50 03/12/2017 23:59:59 [facility] Outpatient Rah Blas [id number] 01/14/2017 13:27:47 01/14/2017 13:27:47 DIS Unknown
--- NOTE | 2018-02-14 09:28 | Diagnostic Imaging Report ---
INDICATION: Foot pain. Three views were obtained. FINDINGS: The bones are osteopenic. There is no fracture or dislocation. There are degenerative changes. Soft tissues are unremarkable. IMPRESSION: Osteopenia and degenerative changes without acute fracture or dislocation. Dictated by: Dictated on workstation # [id number]
--- NOTE | 2018-02-14 09:45 | ED Lower Extremity ---
General Chief Complaint: Lower Extremity Stated Complaint: RT ANKLE PAIN Nursing Triage Note: PT AMUBLATES TO ROOM 6 PT CO OF R FOOT PAIN Nursing Sepsis Screen: No Definite Risk Source: patient Exam Limitations: no limitations History of Present Illness Date Seen by Provider: Feb 14, 2018 Time Seen by Provider: 08:54 Initial Comments This pleasant 87-year-old woman presents to the emergency room with complaints of pain in the right lateral foot with no known injury. Pain started yesterday. She seems to be most tender around the proximal end of the right metatarsal. She has some very subtle bruising and swelling just dorsal to that area. She does take Eliquis for atrial fibrillation. Pain does not extend beyond this immediate area. Allergies and Home Medications Allergies Coded Allergies: Penicillins (Verified Allergy, Unknown, 06/19/08) Sulfa (Sulfonamide Antibiotics) (Verified Allergy, Unknown, 06/19/08) Home Medications Alprazolam 0.5 Mg Tablet, 0.25-0.5 MG PO TID PRN for ANXIETY, (Reported) TAKES 1/2 TO 1 (0.5MG) TABLET Apixaban 2.5 Mg Tablet, 2.5 MG PO BID@0600,1800 Prescribed by: Phyllis SAEED on 04/04/17 1053 Brimonidine Tartrate/Timolol 5 Ml Drops, 1 DROP OS DAILY, (Reported) Carvedilol 12.5 Mg Tablet, 6.25 MG PO BID, (Reported) TAKES 1/2 (12.5MG) TABLET Cholecalciferol (Vitamin D3) 1,000 Unit Tablet, 1,000 UNIT PO 1200, (Reported) Cholecalciferol (Vitamin D3) 1,000 Unit Capsule, 2,000 UNIT PO BID, (Reported) Citalopram Hydrobromide 40 Mg Tablet, 40 MG PO DAILY, (Reported) Diltiazem HCl 360 Mg Capsule.er, 360 MG PO DAILY, (Reported) Docusate Sodium 100 Mg Capsule, 100 MG PO BID, (Reported) Ergocalciferol (Vitamin D2) 50,000 Unit Capsule, 50,000 UNITS PO Sa, (Reported) Flaxseed Oil 1,000 Mg Capsule, 1,000 MG PO DAILY, (Reported) Furosemide 40 Mg Tablet, 40 MG PO DAILY PRN for SWELLING, (Reported) Hydralazine HCl 100 Mg Tablet, 100 MG PO BID, (Reported) Hydrocodone/Acetaminophen 1 Each Tablet, 0.5-1 TAB PO Q6H PRN for PAIN-MODERATE, (Reported) Levothyroxine Sodium 25 Mcg Tablet, 12.5 MCG PO DAILY, (Reported) TAKES 1/2 (25MCG) TABLET Lisinopril 40 Mg Tablet, 40 MG PO DAILY, (Reported) Patient Home Medication List Home Medication List Reviewed: Yes Review of Systems Constitutional: no symptoms reported EENTM: no symptoms reported Respiratory: no symptoms reported Cardiovascular: no symptoms reported Gastrointestinal: no symptoms reported Genitourinary: no symptoms reported : No Musculoskeletal: see HPI Skin: see HPI Psychiatric/Neurological: No Symptoms Reported Past Ggxwort-Ibfmwf-Mzotdy Hx Patient Social History Alcohol Use: Denies Use Recreational Drug Use: No Smoking Status: Never a Smoker 2nd Hand Smoke Exposure: No Recent Foreign Travel: No Contact w/Someone Who Travel: No Recent Infectious Disease Expo: No Recent Hopitalizations: No Immunizations Up To Date Tetanus Booster (TDap): Unknown Date of Pneumonia Vaccine: May 15, 2013 Date of Influenza Vaccine: Feb 18, 2017 Seasonal Allergies Seasonal Allergies: No Past Medical History Surgeries: Yes Abdominal, Pacemaker Respiratory: No Cardiac: Yes (pacemaker) Atrial Fibrillation (anticoagulated), Hypertension, Irregular Heartbeat Neurological: No : No Reproductive Disorders: Yes (BARTHOLIN CYSTS X 2 WITH SURGERY FOR BOTH) Genitourinary: Yes Bladder Infection, Renal Failure Gastrointestinal: No Musculoskeletal: No Endocrine: Yes Hypothyroidsim HEENT: Yes Cataract Hearing Impairment: Denies Cancer: Yes Bladder Did You Recieve Any Treatments: Yes What Type of Treatment Did You: Surgical Intervention Psychosocial: Yes Sleep Difficulties, Anxiety Integumentary: Yes (PEREZ FROM TAKING COUMADIN) Blood Disorders: No Adverse Reaction/Blood Tranf: No Family Medical History Patient reports no known family medical history. Heart Disease, Hypertension Physical Exam Vital Signs Vital Signs - First Documented 02/14/18 08:55 Temp 97.2 Pulse 73 Resp 19 B/P (MAP) 192/71 (111) Pulse Ox 97 Capillary Refill : Less Than 3 Seconds Height, Weight, BMI Height: 5'5.00" Weight: 150lbs. 0.0oz. [id number]; 25.5 BMI Method:Stated General Appearance: WD/WN, no apparent distress HEENT: PERRL/EOMI, normal ENT inspection Legs: right leg non-tender, right leg normal inspection, right leg normal range of motion, right leg no evidence of injury, right leg other (no pain, swelling, or erythema in the right calf) Knees: right knee non-tender, right knee normal inspection, right knee normal range of motion, right knee no evidence of injury Ankles: right ankle non-tender, right ankle normal inspection, right ankle normal range of motion, right ankle no evidence of injury Feet: right foot bone tenderness, right foot ecchymosis, right foot pain, right foot swelling, right foot other (there is tenderness over the proximal metatarsal. Just dorsal to that there is some subtle ecchymosis and swelling) Neurologic/Tendon: normal sensation, normal motor functions, normal tendon functions Neurologic/Psychiatric: kiln car unloader II-XII nml as tested, no motor/sensory deficits, alert, normal mood/affect, oriented x 3 Skin: normal color, warm/dry, ecchymosis Progress/Results/Core Measures Results/Orders My Orders Orders - PHAM BURNETTE MD Foot, Right, 3 View (02/14/18 09:01) Vital Signs/I&O 02/14/18 02/14/18 08:55 09:49 Temp 97.2 97.2 Pulse 73 73 Resp 19 19 B/P (MAP) 192/71 (111) 192/71 (111) Pulse Ox 97 97 Blood Pressure Mean: 111 Progress Progress Note : Progress Note X-ray showed no bony injury. There is some arthritis present. Since patient is anticoagulated she may have easily bruised or perhaps may have even ruptured a small blood vessel causing the pain. Departure Impression Primary Impression: Right foot pain Additional Impressions: Ecchymosis Anticoagulated Disposition: 01 HOME, SELF-CARE Condition: Stable Departure-Patient Inst. Decision time for Depature: 09:43 Referrals: RAH ANGELES MD (PCP/Family) Primary Care Physician Patient Instructions: NO INSTRUCTIONS GIVEN Add. Discharge Instructions: The exact cause of your pain is uncertain but may be related to bruising, arthritis, and or rupture of a small blood vessel. You may continue taking hydrocodone as previously prescribed. Elevate foot as much as possible. You may also apply ice in 20 minute intervals throughout the day today. Return to care if symptoms are worsening, especially if you notice heat, redness, fever, worsening swelling, or spreading of the affected area. If symptoms are not improving over the next few days, please follow-up with your primary care provider. All discharge instructions reviewed with patient and/or family. Voiced understanding. Copy Copies To 1: RAH ANGELES MD, JOSHUA T MD Feb 14, 2018 09:45
[2018-02-14 09:49] VITALS: BP 192/71
== END 2018-02-14 09:49 | disposition home or self-care (01) ==
LOC: EDUNIT# 08:49 → ER 08:51
DX: S90.31XA Contusion of right foot, initial encounter (principal); I48.91 Unspecified atrial fibrillation; I10 Essential (primary) hypertension; E03.9 Hypothyroidism, unspecified; F41.9 Anxiety disorder, unspecified; Z82.49 Family history of ischemic heart disease and other diseases of the circulatory system; Z85.51 Personal history of malignant neoplasm of bladder; Z95.0 Presence of cardiac pacemaker; Z87.448 Personal history of other diseases of urinary system; Z88.0 Allergy status to penicillin; Z88.2 Allergy status to sulfonamides; Z79.01 Long term (current) use of anticoagulants; X58.XXXA Exposure to other specified factors, initial encounter
CPT/HCPCS: 73630

== ENCOUNTER 2018-03-06 14:14 | Emergency (ER) | payer MEDICARE, BC ==
[~2018-03-06] VITALS: Ht 165.1 cm; Wt 67.1 kg
--- OUTSIDE RECORDS SUMMARY | 2018-03-06 14:29 | XMS REPORT | CCD ---
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 Phone [facility] Unavailable CCM Unavailable Summary Purpose Interface Exchange Insurance Providers Payer name Policy type / Coverage type Covered green party ID Effective Begin Date Effective End Date WPS Medicare Part B Medicare Part B [id number] Unknown [facility] Medicare Part B [id number] Unknown Family history Son Diagnosis Age At Onset Dementia Unknown Father Diagnosis Age At Onset Myocardial infarction Unknown Stroke Unknown Mother Diagnosis Age At Onset Cardiovascular disease Unknown Social History Social History Element Codes Description Effective Dates Number of children Unknown 5 -1 - 09/08/2017 Employment Unknown 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 [employer], 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 [employer] 09/08/2017 Marital status Unknown 01/08/[address]: 411870186 Nonsmoker 01/08/[address]: 540038046 Never drinks alcohol 01/08/2011 Allergies, Adverse Reactions, Alerts Substance Reaction Codes Entered Date Inactivated Date Status * NO KNOWN FOOD ALLERGIES Unknown 01/08/2011 No Inactive Date Active * NO KNOWN ENVIRONMENTAL ALLERGIES Unknown 01/08/2011 No Inactive Date Active benicar RxNorm: 393983 09/01/2013 No Inactive Date Active PENICILLINS hives Unknown 01/08/2011 No Inactive Date Active SULFA (SULFONAMIDE ANTIBIOTICS) Unknown 01/08/2011 No Inactive Date Active Past Medical History Illness Codes Condition Status Onset Date Resolved Date Encounter for immunization ICD-9: V04.81 ICD-10: Z23 Active 02/19/2012 Unknown Essential (primary) hypertension ICD-9: 401.1 ICD-10: I10 Active 07/29/2016 Unknown Dysuria ICD-9: 788.1 ICD-10: R30.0 Active 01/05/2018 Unknown Atrophy of thyroid (acquired) ICD-9: 244.8 ICD-10: E03.4 Active 07/29/2016 Unknown Gout due to renal impairment, left knee ICD-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 ICD-10: M10.362 Active 08/25/2017 Unknown Gout due to renal impairment, right knee ICD-9: 274.89 ICD-10: M10.361 Active 08/25/2017 Unknown Encounter for general adult medical examination without abnormal findings ICD-9: V70.0 ICD-10: Z00.00 Active 09/08/2017 Unknown Idiopathic gout, left ankle and foot ICD-9: 274.00 ICD-10: M10.072 Active 07/28/2017 Unknown Pain in left leg ICD-9 : 729.5 ICD-10: M79.605 Active 04/01/2015 Unknown Pain in right leg ICD- 9: 729.5 ICD-10: M79.604 Active 07/28/2017 Unknown Gout, unspecified ICD- 9: 274.9 ICD-10: M10.9 Active 06/11/2017 Unknown Pain in thoracic spine ICD-9: 724.1 ICD-10: M54.6 Active 06/11/2017 Unknown Acute laryngopharyngitis ICD-9: 465.0 ICD-10: J06.0 Active 05/05/2017 Unknown Cough ICD-9: 786.2 ICD-10: R05 Active 06/28/2015 Unknown Displaced fracture of right ulna styloid [...] ICD-9: 401.9 ICD-10: I10 Active 11/15/2013 Unknown Low back pain ICD-9: 724.2 ICD-10: M54.5 Active 05/30/2014 Unknown Hypothyroidism, unspecified ICD-9: 244.9 ICD-10: E03.9 Active 11/15/2013 Unknown Other abnormal glucose ICD-9: 249.00 ICD-10: R73.09 Active 07/10/2015 Unknown Acute recurrent maxillary sinusitis ICD-9: 461.0 ICD-10: J01.01 Active 06/28/2015 Unknown Pain in left knee ICD- 9: 719.46 ICD-10: M25.562 Active 04/01/2015 Unknown Cervicalgia ICD-9: 723.1 ICD-10: [...] Problems Condition Codes Effective Dates Condition Status Encounter for immunization ICD-9: V04.81 ICD-10: Z23 02/19/2012 Active Essential (primary) hypertension ICD-9: 401.1 ICD-10: I10 07/29/2016 Active Dysuria ICD-9: 788.1 ICD-10: R30.0 01/05/2018 Active Atrophy of thyroid (acquired) ICD-9: 244.8 ICD-10: E03.4 07/29/2016 Active Gout due to renal impairment, left knee ICD-9: 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.89 ICD-10: M10.362 08/25/2017 Active Gout due to renal impairment, right knee ICD-9: 274.89 ICD-10: M10.361 08/25/2017 Active Encounter for general adult medical examination without abnormal findings ICD-9: V70.0 ICD-10: Z00.00 09/08/2017 Active Idiopathic gout, left ankle and foot ICD-9: 274.00 ICD-10: M10.072 07/28/2017 Active Pain in left leg ICD-9 : 729.5 ICD-10: M79.605 04/01/2015 Active Pain in right leg ICD- 9: 729.5 ICD-10: M79.604 07/28/2017 Active Gout, unspecified ICD- 9: 274.9 ICD-10: M10.9 06/11/2017 Active Pain in thoracic spine ICD-9: 724.1 ICD-10: M54.6 06/11/2017 Active Acute laryngopharyngitis ICD-9: 465.0 ICD-10: J06.0 05/05/2017 Active Cough ICD-9: 786.2 ICD-10: R05 06/28/2015 Active Displaced fracture of right ulna styloid [...] hypertension ICD-9: 401.9 ICD-10: I10 11/15/2013 Active Low back pain ICD-9: 724.2 ICD-10: M54.5 05/30/2014 Active Hypothyroidism, unspecified ICD-9: 244.9 ICD-10: E03.9 11/15/2013 Active Other abnormal glucose ICD-9: 249.00 ICD-10: R73.09 07/10/2015 Active Acute recurrent maxillary sinusitis ICD-9: 461.0 ICD-10: J01.01 06/28/2015 Active Pain in left knee ICD- 9: 719.46 ICD-10: M25.562 04/01/2015 Active Cervicalgia ICD-9: 723.1 ICD-10: M54.2 [...] Start Date Stop Date Status Fill Instructions diltiazem ER 180 mg capsule,24 hr,extended release RxNorm: 076882 2 Capsule(s) PO daily 03/01/2018 08/27/2018 Active Per your request, please d/c Tiazac 360mg alprazolam 0.5 mg tablet RxNorm: 072833 1 Tablet(s) PO Q8 as needed 01/25/2018 03/25/2018 Active hydrocodone 10 mg-acetaminophen 325 mg tablet RxNorm: 270711 Tablet(s) PO 1 TABLET EVERY 6 HOURS NEEDED FOR CHRONIC OSTEOARTHRITIS PAIN 01/25/2018 No Stop Date Active Generic For:NORCO 10-325MG Generic For:NORCO 10-325MG 05/11/2013 9: 15:54 AM (Appended: Controlled substance eRx refill - RxReferenceNumber: [id number] ) allopurinol 100 mg tablet RxNorm: 867407 1 Tablet(s) PO daily 12/01/2017 08/27/2018 Active allopurinol 100 mg tablet RxNorm: 537954 1 Tablet(s) PO daily 12/01/2017 08/27/2018 Active furosemide 40 mg tablet RxNorm: 475967 1 Tablet(s) PO PRN EDEMA 12/01/2017 03/30/2018 Active hydralazine 100 mg tablet RxNorm: 571096 1 Tablet(s) PO BID as needed if systolic over 160. takes 1/2 at HS 11/24/201703/23 Active carvedilol 6.25 mg tablet RxNorm: 365071 1/2 Tablet(s) PO daily 11/24/2017 03/23/2018 Active Cymbalta 30 mg capsule,delayed release RxNorm: 202724 1 Capsule(s) PO daily 11/02/2017 03/01/2018 Inactive Voltaren 1 % topical gel RxNorm: 238491 2 Gram(s) TOP TID as needed FOR BACK OR JOINT PAIN 10/28/2017 02/24/2018 Inactive Synthroid 25 mcg tablet RxNorm: 064781 TAKE 1/2 TABLET BY MOUTH DAILY 09/02/2017 02/28/2018 Inactive Generic For:SYNTHROID 25MCG TAB 09/02/2017 9:02:06 AM lisinopril 40 mg tablet RxNorm: 378991 TAKE 1 TABLET BY MOUTH ONCE DAILY. 09/02/2017 11/23/2017 Inactive Generic For:ZESTRIL 40MG 09/02/2017 9:02:03 AM furosemide 40 mg tablet RxNorm: 738538 1 Tablet(s) PO PRN EDEMA 08/25/2017 11/30/2017 Inactive diltiazem ER 180 mg capsule,24 hr,extended release RxNorm: 578586 2 Capsule(s) PO daily 08/12/2017 02/07/2018 Inactive Per your request, please d/c Tiazac 360mg diltiazem ER 180 mg capsule,24 hr,extended release RxNorm: 674403 2 Capsule(s) PO daily 08/12/2017 08/11/2017 Inactive Per your request, please d/c Tiazac 360mg diltiazem ER 360 mg capsule,24 hr,extended release RxNorm: 832348 TAKE ONE CAPSULE BY MOUTH ONCE DAILY. 08/04/2017 Inactive Generic For:TIAZAC 360 MG CAPSULE SA CAN WE SWITCH THE 360 MG TO 180 MG (2 TABLETS PER DAY)? WE ARE LOSING A LOT OF MONEY ON THIS DRUG AND IT WILL NOT AFFECT HER CO-PAY. THANKS! 08/04/2017 10:33:21 AM alprazolam 0.5 mg tablet RxNorm: 215942 1 Tablet(s) PO Q8 as needed 07/17/2017 09/14/2017 Inactive Cymbalta 30 mg capsule,delayed release RxNorm: 811914 1 Capsule(s) PO daily 07/16/2017 04/11/2018 Active DC citalopram Cymbalta 30 mg capsule,delayed release RxNorm: 928890 1 Capsule(s) PO daily 07/16/2017 07/15/2017 Inactive Cymbalta 30 mg capsule,delayed release RxNorm: 687917 1 Capsule(s) PO daily 07/16/2017 07/15/2017 Inactive diltiazem ER 360 mg capsule,24 hr,extended release RxNorm: 952133 TAKE ONE CAPSULE BY MOUTH ONCE DAILY. 07/06/2017 Inactive Generic For:TIAZAC 360 MG CAPSULE SA 07/04/2017 9:04:34 AM allopurinol 100 mg tablet RxNorm: 303116 1 Tablet(s) PO daily 06/12/2017 11/30/2017 Inactive allopurinol 100 mg tablet RxNorm: 475630 1 Tablet(s) PO daily 06/12/2017 06/11/2017 Inactive prednisone 20 mg tablet RxNorm: 834160 2 Tablet(s) PO daily 12/201706/15/2017 Inactive Vitamin D2 50,000 unit capsule RxNorm: 1659206 1 Capsule(s) PO QW x12 weeks 05/07/2017 11/02/2017 Inactive Take vitamin d3 5000 units QD with it Vitamin D2 50,000 unit capsule RxNorm: 0601752 1 Capsule(s) PO QW x12 weeks 05/07/2017 11/02/2017 Inactive Take vitamin d3 5000 units QD with it Keflex 500 mg capsule RxNorm: 003842 1 Capsule(s) PO TID 201605/04/2017 Inactive citalopram 40 mg tablet RxNorm: 528080 TAKE 1 TABLET BY MOUTH DAILY 04/06/2017 07/15/2017 Inactive Generic For:CELEXA 40MG 04/06/2017 9:17:54 AM carvedilol 12.5 mg tablet RxNorm: 884141 1 Tablet(s) PO BID 07/28/2017 Inactive Synthroid 25 mcg tablet RxNorm: 737273 TAKE 1/2 TABLET BY MOUTH DAILY 03/06/2017 09/01/2017 Inactive Generic For:SYNTHROID 25MCG TAB 03/06/2017 9:04:09 AM diltiazem ER 360 mg capsule,24 hr,extended release RxNorm: 362586 TAKE ONE CAPSULE BY MOUTH ONCE DAILY. 01/02/2017 Inactive Generic For:TIAZAC 360 MG CAPSULE SA 01/02/2017 2:53:42 PM Vitamin D3 1,000 unit capsule RxNorm: 186396 5 Capsule(s) PO No Stop Date Active Vitamin D2 50,000 unit capsule RxNorm: 662159 1 Capsule(s) PO QW x12 weeks 12/25/2016 12/24/2016 Inactive Take vitamin d3 5000 units QD with it Vitamin D2 50,000 unit capsule RxNorm: 718511 1 Capsule(s) PO QW x12 weeks 12/25/2016 03/24/2017 Inactive Take vitamin d3 5000 units QD with it carvedilol 12.5 mg tablet RxNorm: 574760 1/2 Tablet(s) PO BID 11/18/2016 03/17/2017 Inactive hydralazine 100 mg tablet RxNorm: 108699 1 Tablet(s) PO BID 03/17/2017 Inactive hydrocodone 10 mg-acetaminophen 325 mg tablet RxNorm: 421053 Tablet(s) PO 1 TABLET EVERY 6 HOURS NEEDED FOR CHRONIC OSTEOARTHRITIS PAIN 11/18/2016 01/24/2018 Inactive Generic For:NORCO 10-325MG Generic For:NORCO 10-325MG 05/11/2013 9: 15:54 AM (Appended: Controlled substance eRx refill - RxReferenceNumber: [id number] ) Bystolic 10 mg tablet RxNorm: 762115 Tablet(s) Tablet(s) 1 Tablet(s) PO BID 10/27/2016 11/17/2016 Inactive citalopram 40 mg tablet RxNorm: 957198 TAKE 1 TABLET BY MOUTH DAILY 10/07/2016 04/04/2017 Inactive Generic For:CELEXA 40MG 10/07/2016 9:04:47 AM Synthroid 25 mcg tablet RxNorm: 451386 1/2 Tablet(s) PO daily 09/09/2016 03/05/2017 Inactive Levaquin 250 mg tablet RxNorm: 353168 1 Tablet(s) PO daily Prescribed by Dr. Jacobs 09/02/2016 09/06/2016 Inactive hydrocodone 10 mg-acetaminophen 325 mg tablet RxNorm: 866801 Tablet(s) PO 1 TABLET EVERY 6 HOURS NEEDED FOR CHRONIC OSTEOARTHRITIS PAIN 07/29/2016 11/17/2016 Inactive Generic For:NORCO 10-325MG Generic For:NORCO 10-325MG 05/11/2013 9: 15:54 AM (Appended: Controlled substance eRx refill - RxReferenceNumber: [id number] ) alprazolam 0.5 mg tablet RxNorm: 952221 1 Tablet(s) PO Q8 as needed 06/26/2016 01/31/2018 Inactive diltiazem ER 360 mg capsule,extended release RxNorm: 029592 TAKE ONE CAPSULE BY MOUTH ONCE DAILY. 06/09/2016 12/05/2016 Inactive Generic For:TIAZAC 360 MG CAPSULE SA 06/09/2016 9:08:38 AM Bystolic 10 mg tablet RxNorm: 986076 Tablet(s) 1 Tablet(s) PO BID 06/09/2016 10/26/2016 Inactive hydrocodone 10 mg-acetaminophen 325 mg tablet RxNorm: 190783 Tablet(s) PO as needed 1 TABLET EVERY 6 HOURS NEEDED FOR CHRONIC OSTEOARTHRITIS PAIN 05/27/2016 06/10/2016 Inactive (Appended: Controlled substance eRx refill - RxReferenceNumber: [id number]) Synthroid 25 mcg tablet RxNorm: 089833 1/2 Tablet(s) PO daily 03/11/2016 09/06/2016 Inactive Voltaren 1 % topical gel RxNorm: 478716 2 Gram(s) TOP TID as needed FOR BACK OR JOINT PAIN 03/03/2016 06/30/2016 Inactive Voltaren 1 % topical gel RxNorm: 424269 2 Gram(s) TOP TID as needed FOR BACK OR JOINT PAIN 03/03/2016 03/02/2016 Inactive hydrocodone 10 mg-acetaminophen 325 mg tablet RxNorm: 117835 Tablet(s) PO 1 TABLET EVERY 6 HOURS NEEDED FOR CHRONIC OSTEOARTHRITIS PAIN 03/03/2016 05/26/2016 Inactive (Appended: Controlled substance eRx refill - RxReferenceNumber: [id number]) furosemide 40 mg tablet RxNorm: 768934 1 Tablet(s) PO PRN EDEMA 02/13/2016 08/24/2017 Inactive Voltaren 1 % topical gel RxNorm: 683277 2 Gram(s) TOP TID as needed FOR BACK OR JOINT PAIN 02/13/2016 03/02/2016 Inactive citalopram 40 mg tablet RxNorm: 919910 TAKE 1 TABLET BY MOUTH DAILY 02/11/2016 08/08/2016 Inactive Generic For:CELEXA 40MG 02/11/2016 8:50:11 AM hydrocodone 10 mg-acetaminophen 325 mg tablet RxNorm: 211623 Tablet(s) PO 1 TABLET EVERY 6 HOURS NEEDED FOR CHRONIC OSTEOARTHRITIS PAIN 01/10/2016 03/02/2016 Inactive (Appended: Controlled substance eRx refill - RxReferenceNumber: [id number]) alprazolam 0.5 mg tablet RxNorm: 396605 1 Tablet(s) PO Q8 hours prn 01/10/2016 03/09/2016 Inactive Bystolic 10 mg tablet RxNorm: 541671 Tablet(s) 1 Tablet(s) PO BID 12/14/2015 06/08/2016 Inactive diltiazem ER 360 mg capsule,extended release RxNorm: 917205 TAKE ONE CAPSULE BY MOUTH ONCE DAILY. 12/13/2015 06/08/2016 Inactive Generic For:TIAZAC 360 MG CAPSULE SA 12/12/2015 9:04:46 AM Livalo 4 mg tablet RxNorm: 277773 1 Tablet(s) PO daily 201504/22/2016 Inactive alprazolam 0.5 mg tablet RxNorm: 932527 1 Tablet(s) PO Q8 hours prn 10/25/2015 12/23/2015 Inactive Synthroid 25 mcg tablet RxNorm: 462318 1/2 Tablet(s) PO daily 09/13/2015 03/10/2016 Inactive citalopram 40 mg tablet RxNorm: 195389 TAKE 1 TABLET BY MOUTH DAILY 08/14/2015 02/09/2016 Inactive Generic For:CELEXA 40MG 08/14/2015 9:21:25 AM hydrocodone 10 mg-acetaminophen 325 mg tablet RxNorm: 217910 Tablet(s) PO 1 TABLET EVERY 6 HOURS NEEDED FOR CHRONIC OSTEOARTHRITIS PAIN 08/13/2015 01/09/2016 Inactive (Appended: Controlled substance eRx refill - RxReferenceNumber: [id number]) Kenalog 40 mg/mL suspension for injection RxNorm: 7199868 2 Milliliter(s) Inj 06/29/2015 06/29/2015 Inactive Levaquin 250 mg tablet RxNorm: 999368 1 Tablet(s) PO UD 201507/05/2015 Inactive 2 TABS TODAY THEN 1 TAB DAILY X 6 DAYS Zithromax Z-Spencer 250 mg tablet RxNorm: 186528 1 Tablet(s) PO UD 06/27/2015 09/12/2015 Inactive z pack x 1 diltiazem ER 360 mg capsule,extended release RxNorm: 827556 TAKE ONE CAPSULE BY MOUTH ONCE DAILY. 06/15/2015 12/11/2015 Inactive Generic For:TIAZAC 360 MG CAPSULE SA 06/15/2015 10:03:16 AM Bystolic 10 mg tablet RxNorm: 603854 1 Tablet(s) PO BID 201512/11/2015 Inactive alprazolam 0.5 mg tablet RxNorm: 290478 1 Tablet(s) PO Q8 hours prn 03/13/2015 01/31/2018 Inactive citalopram 40 mg tablet RxNorm: 459547 TAKE 1 TABLET BY MOUTH DAILY 02/15/2015 08/13/2015 Inactive Generic For:CELEXA 40MG 02/15/2015 9:00:40 AM hydrocodone 10 mg-acetaminophen 325 mg tablet RxNorm: 283790 Tablet(s) PO 1 TABLET EVERY 6 HOURS NEEDED FOR CHRONIC OSTEOARTHRITIS PAIN 01/30/2015 08/12/2015 Inactive (Appended: Controlled substance eRx refill - RxReferenceNumber: [id number]) alprazolam 0.5 mg tablet RxNorm: 222863 1 Tablet(s) PO Q8 hours prn 01/03/2015 03/12/2015 Inactive Synthroid 25 mcg tablet RxNorm: 396661 1/2 Tablet(s) PO daily 12/20/2014 07/17/2015 Inactive hydrocodone 10 mg-acetaminophen 325 mg tablet RxNorm: 711384 Tablet(s) PO 1 TABLET EVERY 6 HOURS NEEDED FOR CHRONIC OSTEOARTHRITIS PAIN 12/01/2014 01/29/2015 Inactive (Appended: Controlled substance eRx refill - RxReferenceNumber: [id number]) hydrocodone 10 mg-acetaminophen 325 mg tablet RxNorm: 169466 Tablet(s) PO 1 TABLET EVERY 6 HOURS NEEDED FOR CHRONIC OSTEOARTHRITIS PAIN 09/22/2014 11/30/2014 Inactive (Appended: Controlled substance eRx refill - RxReferenceNumber: [id number]) citalopram 40 mg tablet RxNorm: 737421 1 Tablet(s) PO daily TAKE 1 TABLET BY MOUTH EVERY MORNING 08/22/2014 02/14/2015 Inactive citalopram 40 mg tablet RxNorm: 429583 1 Tablet(s) PO daily TAKE 1 TABLET BY MOUTH EVERY MORNING 08/21/2014 02/16/2015 Inactive Synthroid 25 mcg tablet RxNorm: 442494 1 Tablet(s) PO daily 12/201412/19/2014 Inactive alprazolam 0.5 mg tablet RxNorm: 770109 1 Tablet(s) PO Q8 hours prn 06/22/2014 08/20/2014 Inactive diltiazem ER 360 mg capsule,extended release RxNorm: 272583 TAKE ONE CAPSULE BY MOUTH ONCE DAILY. 06/21/2014 06/14/2015 Inactive 06/21/2014 11:05:48 AM Bystolic 10 mg tablet RxNorm: 199116 1 Tablet(s) PO BID 201405/24/2015 Inactive hydrocodone 10 mg-acetaminophen 325 mg tablet RxNorm: 651703 Tablet(s) PO 1 TABLET EVERY 6 HOURS NEEDED FOR CHRONIC OSTEOARTHRITIS PAIN 04/05/2014 09/21/2014 Inactive (Appended: Controlled substance eRx refill - RxReferenceNumber: [id number]) diltiazem ER 360 mg capsule,extended release RxNorm: 795805 TAKE ONE CAPSULE BY MOUTH ONCE DAILY. 03/27/2014 06/20/2014 Inactive 03/27/2014 10:16:28 AM diltiazem ER 360 mg capsule,extended release RxNorm: 281654 TAKE ONE CAPSULE BY MOUTH ONCE DAILY. 02/23/2014 03/24/2014 Inactive 02/23/2014 11:40:55 AM Bystolic 20 mg tablet RxNorm: 733334 1 Tablet(s) PO daily TAKE 1 TABLET BY MOUTH ONCE DAILY. 01/23/2014 05/29/2014 Inactive alprazolam 0.5 mg tablet RxNorm: 795150 1 Tablet(s) PO UD 12/1206/21/2014 Inactive at HS and PRN hydrocodone 10 mg-acetaminophen 325 mg tablet RxNorm: 549497 Tablet(s) PO 1 TABLET EVERY 6 HOURS NEEDED FOR CHRONIC OSTEOARTHRITIS PAIN 12/12/2013 04/04/2014 Inactive (Appended: Controlled substance eRx refill - RxReferenceNumber: [id number]) diltiazem ER 360 mg capsule,extended release RxNorm: 363577 Capsule(s) PO TAKE ONE CAPSULE BY MOUTH ONCE DAILY. 10/11/2013 02/22/2014 Inactive 10/11/2013 11:32: 04 AM Keflex 500 mg capsule RxNorm: 947410 1 Capsule(s) PO TID 201309/11/2013 Inactive Keflex 500 mg capsule RxNorm: 843047 1 Capsule(s) PO TID 201309/04/2013 Inactive Rocephin 500 mg solution for injection RxNorm: 669107 Inj 09/0209/02/2013 Inactive Diflucan 150 mg tablet RxNorm: 654321 1 Tablet(s) PO daily 05/201308/31/2013 Inactive Diflucan 150 mg tablet RxNorm: 818239 1 Tablet(s) PO daily 05/201309/05/2013 Inactive Rocephin 500 mg solution for injection RxNorm: 745447 Inj 09/0109/01/2013 Inactive Rocephin 500 mg solution for injection RxNorm: 810278 Inj 08/3108/31/2013 Inactive Cipro 500 mg tablet RxNorm: 297095 1 Tablet(s) PO BID 201308/22/2013 Inactive Cipro 500 mg tablet RxNorm: 731035 1 Tablet(s) PO BID 201308/29/2013 Inactive citalopram 40 mg tablet RxNorm: 756564 1 Tablet(s) PO daily TAKE 1 TABLET BY MOUTH EVERY MORNING 08/22/2013 08/20/2014 Inactive Bystolic 20 mg tablet RxNorm: 195739 1 Tablet(s) PO daily TAKE 1 TABLET BY MOUTH ONCE DAILY. 07/21/2013 01/16/2014 Inactive Synthroid 25 mcg tablet RxNorm: 812459 1 Tablet(s) PO daily 07/10/2014 Inactive diltiazem ER 360 mg capsule,extended release RxNorm: 723205 1 Capsule(s) PO daily TAKE 1 CAPSULE BY MOUTH ONCE DAILY 06/10/2013 10/07/2013 Inactive hydrocodone 10 mg-acetaminophen 325 mg tablet RxNorm: 814378 Tablet(s) PO 1 TABLET EVERY 6 HOURS NEEDED FOR CHRONIC OSTEOARTHRITIS PAIN 05/12/2013 No Stop Date Active Generic For:NORCO 10-325MG Generic For:NORCO 10-325MG 05/11/2013 9: 15:54 AM (Appended: Controlled substance eRx refill - RxReferenceNumber: [id number] ) hydrocodone 10 mg-acetaminophen 325 mg tablet RxNorm: 577704 Tablet(s) PO 1 TABLET EVERY 6 HOURS NEEDED FOR CHRONIC OSTEOARTHRITIS PAIN 05/12/2013 07/28/2016 Inactive Generic For:NORCO 10-325MG Generic For:NORCO 10-325MG 05/11/2013 9: 15:54 AM (Appended: Controlled substance eRx refill - RxReferenceNumber: [id number] ) hydrocodone 10 mg-acetaminophen 325 mg tablet RxNorm: 852030 Tablet(s) PO 1 TABLET EVERY 6 HOURS NEEDED FOR CHRONIC OSTEOARTHRITIS PAIN 05/12/2013 12/11/2013 Inactive (Appended: Controlled substance eRx refill - RxReferenceNumber: [id number]) hydrocodone 10 mg-acetaminophen 325 mg tablet RxNorm: 757518 Tablet(s) PO 1 TABLET EVERY 6 HOURS NEEDED FOR CHRONIC OSTEOARTHRITIS PAIN 05/11/2013 05/12/2013 Inactive (Appended: Controlled substance eRx refill - RxReferenceNumber: [id number]) alprazolam 0.5 mg tablet RxNorm: 626022 1 Tablet(s) PO UD 05/11 No Stop Date Active at HS and PRN citalopram 40 mg tablet RxNorm: 704910 Tablet(s) PO TAKE 1 TABLET BY MOUTH EVERY MORNING 04/04/2013 08/21/2013 Inactive nitrofurantoin 50 mg capsule RxNorm: 057204 1 Capsule(s) PO BID 03/17/2013 03/16/2013 Inactive nitrofurantoin 50 mg capsule RxNorm: 859686 1 Capsule(s) PO BID 03/17/2013 03/23/2013 Inactive Bystolic 20 mg tablet RxNorm: 722872 1 Tablet(s) PO daily TAKE 1 TABLET BY MOUTH ONCE DAILY. 03/14/2013 07/20/2013 Inactive Cipro 250 mg tablet RxNorm: 385870 1 Tablet(s) PO BID 201203/10/2013 Inactive Cipro 250 mg tablet RxNorm: 608073 1 Tablet(s) PO BID 201203/03/2013 Inactive Influenza Virus Vaccine 0.5 mL RxNorm: IM 02/02/2013 02/02/2013 Inactive diltiazem ER 360 mg capsule,extended release RxNorm: 620988 Capsule(s) PO TAKE 1 CAPSULE BY MOUTH ONCE DAILY 01/24/201310/2013 Inactive Bystolic 20 mg tablet RxNorm: 440132 1 Tablet(s) PO daily TAKE 1 TABLET BY MOUTH ONCE DAILY. 11/29/2012 11/29/2012 Inactive Bystolic 20 mg tablet RxNorm: 647230 1 Tablet(s) PO daily TAKE 1 TABLET BY MOUTH ONCE DAILY. 11/29/2012 03/13/2013 Inactive Coumadin 1 mg tablet RxNorm: 263179 1 Tablet(s) PO daily 201210/24/2012 Inactive Coumadin 1 mg tablet RxNorm: 091822 Tablet(s) PO TAKE 1 TABLET BY MOUTH ONCE DAILY. 10/25/2012 11/14/2013 Inactive hydrocodone 10 mg-acetaminophen 325 mg tablet RxNorm: 285602 Tablet(s) PO 1 TABLET EVERY 6 HOURS NEEDED FOR CHRONIC OSTEOARTHRITIS PAIN 10/22/2012 05/10/2013 Inactive (Appended: Controlled substance eRx refill - RxReferenceNumber: [id number]) Synthroid 25 mcg tablet RxNorm: 286181 1 Tablet(s) PO daily 04/12/2013 Inactive prednisone 20 mg tablet RxNorm: 183418 3 Tablet(s) PO daily 10/201210/11/2013 Inactive Kenalog 40 mg/mL Susp for Injection RxNorm: 7344408 Milliliter(s) Inj 10/07/2012 10/07/2012 Inactive levofloxacin 500 mg tablet RxNorm: 374261 Tablet(s) PO 201206/15/2013 Inactive 1 q 48 hr x 4 doses hydrocodone 10 mg-acetaminophen 325 mg tablet RxNorm: 284542 Tablet(s) PO 1 TABLET EVERY 6 HOURS NEEDED FOR CHRONIC OSTEOARTHRITIS PAIN 09/13/2012 05/11/2013 Inactive (Appended: Controlled substance eRx refill - RxReferenceNumber: [id number]) hydrocodone 10 mg-acetaminophen 325 mg tablet RxNorm: 3297658 Tablet(s) PO 1 TABLET EVERY 6 HOURS NEEDED FOR CHRONIC OSTEOARTHRITIS PAIN 09/13/2012 10/22/2012 Inactive (Appended: Controlled substance eRx refill - RxReferenceNumber: [id number]) hydrocodone 10 mg-acetaminophen 325 mg tablet RxNorm: 9254900 Tablet(s) PO 1 TABLET EVERY 6 HOURS NEEDED FOR CHRONIC OSTEOARTHRITIS PAIN 07/30/2012 09/13/2012 Inactive (Appended: Controlled substance eRx refill - RxReferenceNumber: [id number]) diltiazem ER 360 mg capsule,extended release RxNorm: 784491 1 Capsule(s) PO daily 06/23/2012 01/18/2013 Inactive citalopram 40 mg tablet RxNorm: 222644 1 Tablet(s) PO daily 04/03/2013 Inactive TAKE 1 TABLET BY MOUTH EVERY MORNING Synthroid 25 mcg tablet RxNorm: 328458 1 Tablet(s) PO daily 08/27/2012 Inactive Synthroid 25 mcg tablet RxNorm: 892734 1 Tablet(s) PO BID 03/0102/29/2012 Inactive Synthroid 25 mcg tablet RxNorm: 587645 1 Tablet(s) PO BID 03/0102/29/2012 Inactive citalopram 40 mg tablet RxNorm: 323396 Tablet(s) PO 02/03/2012 03/16/2012 Inactive TAKE 1 TABLET BY MOUTH EVERY MORNING Bystolic 20 mg tablet RxNorm: 694988 Tablet(s) PO 10/06/2011 11/29/2012 Inactive TAKE 1 TABLET BY MOUTH ONCE DAILY. hydrocodone 10 mg-acetaminophen 325 mg tablet RxNorm: 5716203 1 Tablet(s) PO Q6 09/05/2011 07/30/2012 Inactive OxyContin 10 mg 12 hr Tab RxNorm: 6968213 1 Tablet(s) PO Q12 PRN per Dr. Walsh 08/04/2011 02/19/2012 Inactive citalopram 40 mg tablet RxNorm: 584630 1 Tablet(s) PO daily 01/201201/06/2012 Inactive hydrocodone-acetaminophen 10 mg-325 mg Tab RxNorm: 5574936 1 Tablet(s) PO Q6 06/24/2011 09/03/2011 Inactive hydrocodone-acetaminophen 10 mg-325 mg Tab RxNorm: 7294816 1 Tablet(s) PO Q6 06/23/2011 06/23/2011 Inactive nystatin 100,000 unit/mL Oral Susp RxNorm: 200986 6 Milliliter(s) PO QID 06/16/2011 06/22/2011 Inactive diltiazem CD 240 mg capsule,extended release 24 hr RxNorm: 199850 1 Capsule(s) PO daily 06/09/2011 12/05/2011 Inactive alprazolam 0.5 mg tablet RxNorm: 749605 1 Tablet(s) PO UD 06/0210/21/2012 Inactive at HS and PRN Bystolic 20 mg Tab RxNorm: 637417 1 Tablet(s) PO daily 201009/29/2011 Inactive erythromycin 5 mg/gram (0.5 %) Eye Ointment RxNorm: 855927 1 Application OPH TID 01/08/2011 01/14/2011 Inactive citalopram 40 mg Tab RxNorm: 890615 1 Tablet(s) PO daily 201001/28/2011 Inactive Eliquis 2.5 mg tablet RxNorm: 9397766 1 Tablet(s) PO BID Dr German manages No Start Date Active flaxseed oil Oral RxNorm: Oral No Start Date Active acetaminophen 500 mg tablet RxNorm: 612943 2 Tablet(s) PO daily as needed for pain No Start Date Active doxazosin 4 mg tablet RxNorm: 071230 1 Tablet(s) PO daily dr edmondson No Start Date 05/29/2014 Inactive lisinopril 40 mg tablet RxNorm: 970172 1 Tablet(s) PO daily No Start Date 09/01/2017 Inactive Tekturna 150 mg Tab RxNorm: 5561379 1 Tablet(s) PO daily No Start Date 07/28/2016 Inactive alprazolam 0.5 mg Tab RxNorm: 283446 1 Tablet(s) PO UD No Start Date 06/01/2011 Inactive at HS and PRN Edarbi 40 mg tablet RxNorm: 9314167 1 Tablet(s) PO daily No Start Date 05/29/2014 Inactive Zithromax Z-Spencer 250 mg tablet RxNorm: 332841 1 Tablet(s) PO UD No Start Date 06/26/2015 Inactive z pack x 1 aspirin 81 mg tablet RxNorm: 813215 1 Tablet(s) PO daily No Start Date 09/07/2017 Inactive Multaq 400 mg tablet RxNorm: 417860 1 Tablet(s) PO BID -Dr. German manages No Start Date 10/05/2017 Inactive lisinopril 20 mg Tab RxNorm: 025000 1 Tablet(s) PO daily No Start Date 07/14/2012 Inactive amiodarone 200 mg tablet RxNorm: 172359 1 Tablet(s) PO daily No Start Date 07/28/2016 Inactive amlodipine 5 mg tablet RxNorm: 560617 1 Tablet(s) PO daily No Start Date 11/17/2016 Inactive Calcium 500 + D (D3) 500 mg-125 unit Tab RxNorm: 606654 1 Tablet(s) PO daily No Start Date 09/07/2017 Inactive OxyContin 10 mg 12 hr Tab RxNorm: 8951080 1 Tablet(s) PO Q12 PRN per Dr. 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 No Start Date 10/25/2015 Inactive Vytorin 10-20 10 mg-20 mg Tab RxNorm: 5929671 1 Tablet(s) PO daily No Start Date 06/23/2012 Inactive levofloxacin 500 mg tablet RxNorm: 001939 Tablet(s) PO No Start Date 09/20/2012 Inactive 1 q 48 hr x 4 doses Vitamin D 1,000 unit Cap RxNorm: 619299 Oral No Start Date 12/24/2016 Inactive Bystolic 20 mg Tab RxNorm: 635521 1 Tablet(s) PO daily No Start Date 04/02/2011 Inactive hydrocodone-acetaminophen 10 mg-325 mg Tab RxNorm: 9556335 1 Tablet(s) PO Q6 No Start Date 06/22/2011 Inactive Coumadin 2 mg Tab RxNorm: 583303 Tablet(s) PO No Start Date 11/14/[address] Faye monitors duloxetine oral RxNorm : 70640 oral No Start Date 09/08/2017 Inactive Diflucan 150 mg tablet RxNorm: 693573 1 Tablet(s) PO daily No Start Date 11/14/2013 Inactive Medication Administered Medication Codes Instructions Start Date Status Kenalog 40 mg/mL suspension for injection RxNorm: 7191605 2Milliliter 06/29/2015 No longer Active Rocephin 500 mg solution for injection RxNorm: 533906 09/02/2013 No longer Active Rocephin 500 mg solution for injection RxNorm: 346973 09/01/2013 No longer Active Rocephin 500 mg solution for injection RxNorm: 726213 08/31/2013 No longer Active Influenza Virus Vaccine 0.5 mL RxNorm: 02/02/2013 No longer Active Kenalog 40 mg/mL Susp for Injection RxNorm: 5311967 Milliliter 10/07/2012 No longer Active Immunizations Vaccine Codes Date Status Influenza CVX: 141 02/01/2018 completed Influenza CVX: 141 02/13/2016 completed Influenza CVX: 141 03/22/2015 completed Influenza CVX: 141 03/22/2015 completed Pneumococcal (Adult) CVX: 133 03/22/2015 completed Influenza CVX: 141 02/02/2013 completed Influenza CVX: 141 02/19/2012 completed Influenza CVX: 141 02/17/2011 completed Pneumococcal (Adult) CVX: 33 02/17/2011 completed zostavax Unknown 12/02/2010 completed Assessments Condition Codes Effective Dates Encounter for immunization ICD-10: Z23 ICD-9: V04.81 02/01/2018 Essential (primary) hypertension ICD-10: I10 ICD-9: 401.1 02/01/2018 Dysuria ICD-10: R30.0 ICD-9: 788.1 01/05/2018 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 ICD-9: 244.8 11/24/2017 Encounter for general adult medical examination without abnormal findings ICD-10: Z00.00 ICD-9: V70.0 09/08/2017 Gout due to renal impairment, 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 ICD-9: 274.89 08/25/2017 Gout due to renal impairment, right knee ICD-10: M10.361 ICD-9: 274.89 08/25/2017 Pain in right leg ICD-10: M79.604 ICD-9: 729.5 07/28/2017 Idiopathic gout, 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 ICD-9: 274.00 07/28/2017 Pain in left leg ICD-10: M79.605 ICD-9: 729.5 07/28/2017 Pain in thoracic spine ICD-10: M54.6 ICD-9: 724.1 06/11/2017 Acute laryngopharyngitis ICD-10: J06.0 ICD-9: 465.0 05/05/2017 Cough ICD-10: R05 ICD-9: 786.2 05/05/2017 Idiopathic sleep related nonobstructive alveolar hypoventilation ICD-10: [...] back pain ICD-10: M54.5 ICD-9: 724.2 02/13/2016 Hypothyroidism, unspecified ICD-10: E03.9 ICD-9: 244.9 10/17/2015 Other abnormal glucose ICD-10: R73.09 ICD-9: 249.00 07/11/2015 Acute recurrent maxillary sinusitis ICD-10: J01.01 ICD-9: 461.0 06/29/2015 Pain in left knee ICD-10: M25.562 ICD-9: 719.46 04/02/2015 Cervicalgia ICD-10: M54.2 ICD-9: 723.1 03/22/2015 [...] 02/23/2012 NONUNION OF FRACTURE ICD-9: 733.82 2011 Knee pain, right ICD-9: 719.46 2011 Thrush, oral ICD-9: 112.0 06/16/2011 VAC STREP PNEUMONIAE-FLU ICD-9: V06.6 Conjunctivitis ICD-9: 372.30 01/08/2011 Reason For Visit Reason For Visit Effective Dates Notes fatigue 02/01/2018 hypertension 11/24/2017 Annual Medicare Wellness Exam 09/08/2017 Hospital Follow Up 08/25/2017 resolved lower leg pain 07/28/2017 back pain 06/11/2017 sore throat 05/05/2017 Hospital Follow Up 04/21/2017 [...] Observation Code Item Item Code Result Date Vitamin D 25 Oh [id number] VITAMIN D, 25 HYDROXY 75.69 ng/mL Lupus Panel 457271 COMPLEMENT C3 . 11/16/2017 Lupus Panel 715757 COMPLEMENT C3 132 mg/dL 11/16/2017 Lupus Panel 896348 COMPLEMENT C4 . 11/16/2017 Lupus Panel 595665 COMPLEMENT C4 29 mg/dL 11/16/2017 Lupus Panel 994218 THYROGLOBULIN ANTIBODY . 2017 Lupus Panel 410699 THYROGLOBULIN ANTIBODY 12 IU/mL Lupus Panel 796965 THYROID PEROXIDASE ( TPO) AB . 2017 Lupus Panel 588476 THYROID PEROXIDASE ( TPO) AB 19 IU/mL 11/16 Lupus Panel 057144 ANTI-NUCLEAR ANTIBODY (YINKA) . Lupus Panel 238389 YINKA (SCOTT) SCREEN NONE DETECTED 2017 Lupus Panel 494075 dsDNA ANTIBODY,IGG* * . 11/16/2017 Lupus Panel 727870 dsDNA ANTIBODY,IGG <0.1 IU/mL 11/16/2017 Lupus Panel 061876 INTERPRETATION 11/16/2017 Lupus Panel 388264 Sm/PAYROLL COORDINATOR ANTIBODY,IGG* * . 11/16/2017 Lupus Panel 354452 Sm/PAYROLL COORDINATOR ANTIBODY,IGG 4.2 EU/mL 11/16/2017 Lupus Panel 704194 INTERPRETATION: 11/16/2017 Lupus Panel 040051 SSA (Ro) ANTIBODY, IGG . 11/16/2017 Lupus Panel 489241 SSA (Ro) ANTIBODY,IGG 1.4 EU/mL 11/16/2017 Lupus Panel 934185 SSB (La) ANTIBODY, IGG . 11/16/2017 Lupus Panel 575152 SSB (La) ANTIBODY,IGG 0.6 EU/mL 11/16/2017 Lupus Panel 212221 MITOCHONDRIAL M2 AB, IGG . 11/16/2017 Lupus Panel 610516 MITOCHONDRIAL M2 AB, IGG 2.3 Units 2017 Protein Electro. S 688725 PROTEIN ELECTROPHORESIS . 11/16/2017 Protein Electro. S 413771 TOTAL PROTEIN 6.4 g/dL 11/16/2017 Protein Electro. S 464387 ALBUMIN 3.73 g/dL 11/16/2017 Protein Electro. S 451653 ALPHA 1 GLOBULIN 0.29 g/dL Protein Electro. S 582192 ALPHA 2 GLOBULIN 0.68 g/dL Protein Electro. S 749177 BETA GLOBULIN 1.43 g/dL 11/16/2017 Protein Electro. S 455809 GAMMA GLOBULIN 0.26 g/dL 11/16/2017 Protein Electro. S 581387 COMMENT: 11/16/2017 Protein Electro. S 909970 MONOCLONAL 1 0.70 g/dL 11/16/2017 Protein Electro. S 110459 PATHOLOGIST: 11/16/2017 Hcv Real-Time Pcr Quant 495717 HCV IU/ mL NOT DETECTED IU/mL 11/14/2017 Hcv Real-Time Pcr Quant 634865 HCV log IU NOT DETECTED logIU 11/14/2017 Pe(Rfx Pinky) Random Ur 634864 TOTAL VOLUME RANDOM mL 11/14 Pe(Rfx Pinky) Random Ur 668818 T. PROTEIN mg/dL 42 mg/dL 2017 Pe(Rfx Pinky) Random Ur 412305 T. PROTEIN mg/day mg/day 2017 Pe(Rfx Pinky) Random Ur 052768 COMMENT: 11/14/2017 Pe(Rfx Pinky) Random Ur 229853 PATHOLOGIST : 11/14/2017 Hepatitis Panel (Abc) 78071 HEPATITIS B SURFACE AG . Hepatitis Panel (Abc) 85271 HEPATITIS B SURFACE AG NEGATIVE 11/13/2017 Hepatitis Panel (Abc) 68510 HEPATITIS B CORE AB, IGM . Hepatitis Panel (Abc) 23862 HEPATITIS B CORE AB, IGM NEGATIVE 11/13/2017 Hepatitis Panel (Abc) 82135 HEPATITIS A AB, IGM . 2017 Hepatitis Panel (Abc) 71639 HEPATITIS A AB, IGM NEGATIVE Hepatitis Panel (Abc) 22697 HEPATITIS C ANTIBODY . 2017 Hepatitis Panel (Abc) 13325 HEPATITIS C ANTIBODY NEGATIVE Immunofixation 482154 IMMUNOFIXATION 11/13/2017 Immunofixation 730383 PATHOLOGIST: 11/13/2017 Free [place] And Lambda Light Chains Serum 243928 [place] FREE LIGHT CHAINS 7.40 mg/ L 11/13/2017 Free [place] And Lambda Light Chains Serum 979547 LAMBDA FREE LIGHT CHAINS 142.26 mg/L 11/13/2017 Free [place] And Lambda Light Chains Serum 935522 K/L FREE LIGHT CHAIN RATIO 0.05 mg/L 11/13/2017 Renal Wcq863 NA 139 mEq/L 11/12/2017 Renal Fro758 K 5.2 mEq/L 11/12/2017 Renal Qmo388 CL 107 mEq/L 11/12/2017 Renal Qta152 CO2 25.0 mEq/L 11/12/2017 Renal Jrj339 ANION GAP 12 11/12/2017 Renal Iae995 Osmo 296 mOsmo 11/12/2017 Renal Jcf794 GLUCOSE 89 mg/dL 11/12/2017 Renal Guc002 BUN 66 mg/dL 11/12/2017 Renal For326 Creat 2.4 mg/dL 11/12/2017 Renal Jds554 eGFR 21 ml/min/1.73m2 11/12/2017 Renal Qka754 B/C Ratio 28.0 Ratio 11/12/2017 Renal Iwh619 CALCIUM 9.1 mg/dL 11/12/2017 Renal Jmu347 PHOS 4.4 mg/dL 11/12/2017 Renal Qlw187 ALBUMIN 3.9 g/dL 11/12/2017 Random Urine Protein/Creatinine Ratio Amj7392 U Prot 48.0 mg/dl 11/12/2017 Random Urine Protein/Creatinine Ratio Qpp5747 U CREAT 64.0 mg/dL 11/12/2017 Random Urine Protein/Creatinine Ratio Hna2147 R MTP/Creat Ratio 0.75 11/12/2017 Magnesium Ord90 Mag 2.1 mg/dL 11/12/2017 Urinalysis Ord28 U-Color Yellow 11/12/2017 Urinalysis Ord28 U-Clarity Clear 11/12/2017 Urinalysis Ord28 U-Gluc Negative 11/12/2017 Urinalysis Ord28 U-Bili Negative 11/12/2017 Urinalysis Ord28 U-Ketone Negative 11/12/2017 Urinalysis Ord28 U-SG 1.010 11/12/2017 Urinalysis Ord28 U-Blood Negative 11/12/2017 Urinalysis Ord28 U-pH 5.0 11/12/2017 Urinalysis Ord28 U-Protein 100 mg/dL 11/12/2017 Urinalysis Ord28 U-Urobilin 0.2 E.U./dL E.U./dL 11/12/2017 Urinalysis Ord28 U-Nitrites Negative 11/12/2017 Urinalysis Ord28 U-Leuk Negative 11/12/2017 Urinalysis Ord28 U-Bact None 11/12/2017 Urinalysis Ord28 U-Squamous Epi 0-5 per/HPF 11/12/2017 Urinalysis Ord28 U-Crystal None per/HPF 11/12/2017 Urinalysis Ord28 U-Mucus None 11/12/2017 Urinalysis Ord28 U-Renal tubular epi None 11/12/2017 Urinalysis Ord28 U-RBC None per/HPF 11/12/2017 Urinalysis Ord28 U-Transitional epi None per/HPF 11/12/2017 Urinalysis Ord28 U-WBC None per/HPF 11/12/2017 Urinalysis Ord28 U-Cast None per/HPF 11/12/2017 Urinalysis Ord28 U-VOL VOLUME SUFFICIENT (10mL) 11/12/2017 Urinalysis Ord28 U-Yeast NEGATIVE 11/12/2017 Urinalysis Ord28 U-Com Urine saved if culture needed (specimen acceptable for 48 hours from collection if refrigerated) 11/12/2017 Cbc With Differential Ord2 WBC 6.25 K/ul 11/12/2017 Cbc With Differential Ord2 RBC 3.98 M/ul 11/12/2017 Cbc With Differential Ord2 HGB 11.6 g/dl 11/12/2017 Cbc With Differential Ord2 Neut% 68.3 % 11/12/2017 Cbc With Differential Ord2 HCT 35.5 % 11/12/2017 Cbc With Differential Ord2 MCV 89.2 fl 11/12/2017 Cbc With Differential Ord2 Lymph% 21.8 % 11/12/2017 Cbc With Differential Ord2 MCH 29.1 pg 11/12/2017 Cbc With Differential Ord2 [place]% 7.7 % 11/12/2017 Cbc With Differential Ord2 MCHC 32.7 pg 11/12/2017 Cbc With Differential Ord2 Eos% 1.9 % 11/12/2017 Cbc With Differential Ord2 Baso% 0.3 % 11/12/2017 Cbc With Differential Ord2 PLT 290 K/ul 11/12/2017 Cbc With Differential Ord2 Neut ABS# 4.27 K/ul 11/12/2017 Cbc With Differential Ord2 RDW 15.1 % 11/12/2017 Cbc With Differential Ord2 Lymph ABS# 1.36 K/ul 11/12/2017 Cbc With Differential Ord2 [place] ABS# 0.5 K/ul 11/12/2017 Cbc With Differential Ord2 Eos ABS# 0.1 K/ul 11/12/2017 Cbc With Differential Ord2 Baso ABS# 0.0 K/ul 11/12/2017 Uric Acid Ord77 Uric A 8.9 mg/dL 11/12/2017 Sed Rate Ord21 ESR 12 mm/hr 11/12/2017 Uric Acid Ord77 Uric A 9.9 mg/dL 06/12/2017 Renal Pvh213 NA 139 mEq/L 03/24/2017 Renal Zid510 K 4.5 mEq/L 03/24/2017 Renal Fuq926 CL 104 mEq/L 03/24/2017 Renal Vhw880 CO2 28.0 mEq/L 03/24/2017 Renal Wuh543 ANION GAP 12 03/24/2017 Renal Bvm956 Osmo 282 mOsmo 03/24/2017 Renal Wmx873 GLUCOSE 96 mg/dL 03/24/2017 Renal Ziy213 BUN 26 mg/dL 03/24/2017 Renal Klj347 Creat 1.5 mg/dL 03/24/2017 Renal Bgj901 eGFR 34 ml/min/1.73m2 03/24/2017 Renal Bvu179 B/C Ratio 17.0 Ratio 03/24/2017 Renal Nka459 CALCIUM 9.3 mg/dL 03/24/2017 Renal Aip179 PHOS 4.0 mg/dL 03/24/2017 Renal Rey064 ALBUMIN 4.1 g/dL 03/24/2017 Cbc With Differential Ord2 WBC 5.31 K/ul 03/24/2017 Cbc With Differential Ord2 RBC 4.05 M/ul 03/24/2017 Cbc With Differential Ord2 HGB 11.6 g/dl 03/24/2017 Cbc With Differential Ord2 HCT 36.7 % 03/24/2017 Cbc With Differential Ord2 Neut% 65.4 % 03/24/2017 Cbc With Differential Ord2 MCV 90.6 fl 03/24/2017 Cbc With Differential Ord2 Lymph% 22.6 % 03/24/2017 Cbc With Differential Ord2 [place]% 9.0 % 03/24/2017 Cbc With Differential Ord2 MCH 28.6 pg 03/24/2017 Cbc With Differential Ord2 Eos% 2.4 % 03/24/2017 Cbc With Differential Ord2 MCHC 31.6 pg 03/24/2017 Cbc With Differential Ord2 Baso% 0.6 % 03/24/2017 Cbc With Differential Ord2 PLT 252 K/ul 03/24/2017 Cbc With Differential Ord2 Neut ABS# 3.47 K/ul 03/24/2017 Cbc With Differential Ord2 RDW 13.8 % 03/24/2017 Cbc With Differential Ord2 Lymph ABS# 1.20 K/ul 03/24/2017 Cbc With Differential Ord2 [place] ABS# 0.5 K/ul 03/24/2017 Cbc With Differential Ord2 Eos ABS# 0.1 K/ul 03/24/2017 Cbc With Differential Ord2 Baso ABS# 0.0 K/ul 03/24/2017 Vitamin D 25 Oh Yrd6000 VITAMIN D, 25 HYDROXY 64.48 ng/mL Random Urine Protein/Creatinine Ratio Muw6964 U Prot 33.0 mg/dl 03/24/2017 Random Urine Protein/Creatinine Ratio Tal6276 U CREAT 76.0 mg/dL 03/24/2017 Random Urine Protein/Creatinine Ratio Cfj1574 R MTP/Creat Ratio 0.43 03/24/2017 Urinalysis Ord28 [...] 48 hours from collection if refrigerated) 03/24/2017 Cbc With Differential Ord2 WBC 5.67 K/ul 12/17/2016 Cbc With Differential Ord2 RBC 4.11 M/ul 12/17/2016 Cbc With Differential Ord2 HGB 12.0 g/dl 12/17/2016 Cbc With Differential Ord2 Neut% 65.4 % 12/17/2016 Cbc With Differential Ord2 HCT 37.6 % 12/17/2016 Cbc With Differential Ord2 MCV 91.5 fl 12/17/2016 Cbc With Differential Ord2 Lymph% 22.0 % 12/17/2016 Cbc With Differential Ord2 MCH 29.2 pg 12/17/2016 Cbc With Differential Ord2 [place]% 10.2 % 12/17/2016 Cbc With Differential Ord2 MCHC 31.9 pg 12/17/2016 Cbc With Differential Ord2 Eos% 1.9 % 12/17/2016 Cbc With Differential Ord2 Baso% 0.5 % 12/17/2016 Cbc With Differential Ord2 PLT 258 K/ul 12/17/2016 Cbc With Differential Ord2 RDW 13.8 % 12/17/2016 Cbc With Differential Ord2 Neut ABS# 3.70 K/ul 12/17/2016 Cbc With Differential Ord2 Lymph ABS# 1.25 K/ul 12/17/2016 Cbc With Differential Ord2 [place] ABS# 0.6 K/ul 12/17/2016 Cbc With Differential Ord2 Eos ABS# 0.1 K/ul 12/17/2016 Cbc With Differential Ord2 Baso ABS# 0.0 K/ul 12/17/2016 Lipid Ord30 CHOL 208 mg/dL 12/17/2016 Lipid Ord30 HDL 53.0 mg/dl 12/17/2016 Lipid Ord30 TRIG 151 mg/dL 12/17/2016 Lipid Ord30 LDL 125 mg/dL 12/17/2016 Lipid Ord30 C/HDL 3.9 Ratio 12/17/2016 Comp Metabolic Vqv771 NA 140 mEq/L 12/17/2016 Comp Metabolic Wti550 K 4.9 mEq/L 12/17/2016 Comp Metabolic Kjl087 CL 105 mEq/L 12/17/2016 Comp Metabolic Lqt030 CO2 25.0 mEq/L 12/17/2016 Comp Metabolic Jjs397 ANION GAP 15 12/17/2016 Comp Metabolic Ezp409 GLUCOSE 82 mg/dL 12/17/2016 Comp Metabolic Thp014 Creat 1.5 mg/dL 12/17/2016 Comp Metabolic Vuw446 eGFR 35 ml/min/1.73m2 12/17/2016 Comp Metabolic Fsv979 BUN 38 mg/dL 12/17/2016 Comp Metabolic Zky748 B/C Ratio 25.5 Ratio 12/17/2016 Comp Metabolic Ojx958 CALCIUM 9.1 mg/dL 12/17/2016 Comp Metabolic Bzn214 ALK PHOS 52 U/L 12/17/2016 Comp Metabolic Sxt747 AST(SGOT) 11 U/L 12/17/2016 Comp Metabolic Mzt629 ALT(SGPT) 7 U/L 12/17/2016 Comp Metabolic Pls113 BILI T 0.6 mg/dL 12/17/2016 Comp Metabolic Uku316 ALBUMIN 3.9 g/dL 12/17/2016 Comp Metabolic Zbw921 TPRO 6.2 g/dL 12/17/2016 Comp Metabolic Yhk013 GLOB 2.3 g/dL 12/17/2016 Comp Metabolic Gkb516 A/G Ratio 1.7 Ratio 12/17/2016 Comp Metabolic Bpa025 Osmo 288 mOsmo 12/17/2016 Tsh Ord6 hTSH II 2.90 uIU/mL 12/17/2016 Vitamin D 25 Oh Iec4023 VITAMIN D, 25 HYDROXY 33.42 ng/mL Free T4 Zwg593 FREE T4 1.09 ng/dL 12/17/2016 Lipid Ord30 CHOL 154 mg/dL 07/08/2016 Lipid Ord30 HDL 69.0 mg/dl 07/08/2016 Lipid Ord30 TRIG 72 mg/dL 07/08/2016 Lipid Ord30 LDL 71 mg/dL 07/08/2016 Lipid Ord30 C/HDL 2.2 Ratio 07/08/2016 Free T4 Xqg368 FREE T4 1.20 ng/dL 07/08/2016 Cbc With Differential Ord2 WBC 7.69 K/ul 07/08/2016 Cbc With Differential Ord2 RBC 4.22 M/ul 07/08/2016 Cbc With Differential Ord2 HGB 12.5 g/dl 07/08/2016 Cbc With Differential Ord2 HCT 38.9 % 07/08/2016 Cbc With Differential Ord2 Neut% 73.5 % 07/08/2016 Cbc With Differential Ord2 MCV 92.2 fl 07/08/2016 Cbc With Differential Ord2 Lymph% 15.9 % 07/08/2016 Cbc With Differential Ord2 [place]% 9.2 % 07/08/2016 Cbc With Differential Ord2 MCH 29.6 pg 07/08/2016 Cbc With Differential Ord2 MCHC 32.1 pg 07/08/2016 Cbc With Differential Ord2 Eos% 1.0 % 07/08/2016 Cbc With Differential Ord2 PLT 243 K/ul 07/08/2016 Cbc With Differential Ord2 Baso% 0.4 % 07/08/2016 Cbc With Differential Ord2 Neut ABS# 5.65 K/ul 07/08/2016 Cbc With Differential Ord2 RDW 13.9 % 07/08/2016 Cbc With Differential Ord2 Lymph ABS# 1.22 K/ul 07/08/2016 Cbc With Differential Ord2 [place] ABS# 0.7 K/ul 07/08/2016 Cbc With Differential Ord2 Eos ABS# 0.1 K/ul 07/08/2016 Cbc With Differential Ord2 Baso ABS# 0.0 K/ul 07/08/2016 Tsh Ord6 hTSH II 1.76 uIU/mL 07/08/2016 Comp Metabolic Zdf027 NA 139 mEq/L 07/08/2016 Comp Metabolic Sdx652 K 5.4 mEq/L 07/08/2016 Comp Metabolic Fyi244 CL 104 mEq/L 07/08/2016 Comp Metabolic Crq524 CO2 29.0 mEq/L 07/08/2016 Comp Metabolic Tzt786 ANION GAP 11 07/08/2016 Comp Metabolic Ibp863 GLUCOSE 89 mg/dL 07/08/2016 Comp Metabolic Stf428 Creat 1.8 mg/dL 07/08/2016 Comp Metabolic Xqb614 eGFR 29 ml/min/1.73m2 07/08/2016 Comp Metabolic Pdg453 BUN 46 mg/dL 07/08/2016 Comp Metabolic Lov216 B/C Ratio 25.8 Ratio 07/08/2016 Comp Metabolic Uds122 CALCIUM 9.3 mg/dL 07/08/2016 Comp Metabolic Vev659 ALK PHOS 46 U/L 07/08/2016 Comp Metabolic Ygj442 AST(SGOT) 14 U/L 07/08/2016 Comp Metabolic Nyb189 ALT(SGPT) 12 U/L 07/08/2016 Comp Metabolic Asv279 BILI T 0.9 mg/dL 07/08/2016 Comp Metabolic Pyn746 ALBUMIN 4.0 g/dL 07/08/2016 Comp Metabolic Ikf594 TPRO 6.6 g/dL 07/08/2016 Comp Metabolic Sxn853 GLOB 2.6 g/dL 07/08/2016 Comp Metabolic Zzi894 A/G Ratio 1.5 Ratio 07/08/2016 Comp Metabolic Fxl409 Osmo 289 mOsmo 07/08/2016 Comp Metabolic Ylo823 NA 139 mEq/L 07/12/2015 Comp Metabolic Rii597 K 4.8 mEq/L 07/12/2015 Comp Metabolic Dxc507 CL 106 mEq/L 07/12/2015 Comp Metabolic Cmx783 CO2 26.0 mEq/L 07/12/2015 Comp Metabolic Igs567 ANION GAP 12 07/12/2015 Comp Metabolic Nsn734 GLUCOSE 86 mg/dL 07/12/2015 Comp Metabolic Odo733 Creat 1.4 mg/dL 07/12/2015 Comp Metabolic Zjx756 eGFR 39 ml/min/1.73m2 07/12/2015 Comp Metabolic Gjy475 BUN 32 mg/dL 07/12/2015 Comp Metabolic Uxb178 B/C Ratio 23.5 Ratio 07/12/2015 Comp Metabolic Ssv268 CALCIUM 9.1 mg/dL 07/12/2015 Comp Metabolic Wwy045 ALK PHOS 52 U/L 07/12/2015 Comp Metabolic Vka434 AST(SGOT) 14 U/L 07/12/2015 Comp Metabolic Lis161 ALT(SGPT) 12 U/L 07/12/2015 Comp Metabolic Hfy798 BILI T 0.8 mg/dL 07/12/2015 Comp Metabolic Nqd112 ALBUMIN 3.9 g/dL 07/12/2015 Comp Metabolic Mfa387 TPRO 6.4 g/dL 07/12/2015 Comp Metabolic Nda386 GLOB 2.5 g/dL 07/12/2015 Comp Metabolic Kwr138 A/G Ratio 1.6 Ratio 07/12/2015 Comp Metabolic Blr424 Osmo 284 mOsmo 07/12/2015 Tsh Ord6 hTSH II 1.94 uIU/mL 07/12/2015 Free T4 Dni630 FREE T4 1.08 ng/dL 07/12/2015 Cbc With Differential Ord2 WBC 6.79 K/ul 07/12/2015 Cbc With Differential Ord2 RBC 4.28 M/ul 07/12/2015 Cbc With Differential Ord2 HGB 12.3 g/dl 07/12/2015 Cbc With Differential Ord2 Neut% 75.0 % 07/12/2015 Cbc With Differential Ord2 HCT 38.2 % 07/12/2015 Cbc With Differential Ord2 MCV 89.3 fl 07/12/2015 Cbc With Differential Ord2 Lymph% 16.5 % 07/12/2015 Cbc With Differential Ord2 [place]% 7.4 % 07/12/2015 Cbc With Differential Ord2 MCH 28.7 pg 07/12/2015 Cbc With Differential Ord2 MCHC 32.2 pg 07/12/2015 Cbc With Differential Ord2 Eos% 1.0 % 07/12/2015 Cbc With Differential Ord2 PLT 321 K/ul 07/12/2015 Cbc With Differential Ord2 Baso% 0.1 % 07/12/2015 Cbc With Differential Ord2 Neut ABS# 5.09 K/ul 07/12/2015 Cbc With Differential Ord2 RDW 15.5 % 07/12/2015 Cbc With Differential Ord2 Lymph ABS# 1.12 K/ul 07/12/2015 Cbc With Differential Ord2 [place] ABS# 0.5 K/ul 07/12/2015 Cbc With Differential Ord2 Eos ABS# 0.1 K/ul 07/12/2015 Cbc With Differential Ord2 Baso ABS# 0.0 K/ul 07/12/2015 Cbc With Differential Ord2 New Analyzer Notice Please note new ref ranges starting 05-16-2015 due to implemntation of new five part differential hematolgy analyzer. 07/12/2015 %Hba1C Qdg456 % HbA1c 10744-8 5.8 % 07/12/2015 %Hba1C Uxc152 Gluc Ave 120 mg/dL 07/12/2015 Lipid Ord30 CHOL 143 mg/dL 07/12/2015 Lipid Ord30 HDL 69.0 mg/dl 07/12/2015 Lipid Ord30 TRIG 59 mg/dL 07/12/2015 Lipid Ord30 LDL 62 mg/dL 07/12/2015 Lipid Ord30 C/HDL 2.1 Ratio 07/12/2015 %Hba1C Zto927 % HbA1c 97248-0 5.6 % 12/14/2014 %Hba1C Glu126 Gluc Ave 114 mg/dL 12/14/2014 Comp Metabolic Bov923 NA 136 mEq/L 12/13/2014 Comp Metabolic Spc941 K 4.7 mEq/L 12/13/2014 Comp Metabolic Ejs167 CL 104 mEq/L 12/13/2014 Comp Metabolic Obc206 CO2 26.0 mEq/L 12/13/2014 Comp Metabolic Grt079 ANION GAP 11 12/13/2014 Comp Metabolic Pxa898 GLUCOSE 86 mg/dL 12/13/2014 Comp Metabolic Wha059 Creat 1.6 mg/dL 12/13/2014 Comp Metabolic Lzt597 eGFR 33 ml/min/1.73m2 12/13/2014 Comp Metabolic Fes745 BUN 37 mg/dL 12/13/2014 Comp Metabolic Vlv820 B/C Ratio 23.4 Ratio 12/13/2014 Comp Metabolic Asd585 CALCIUM 9.0 mg/dL 12/13/2014 Comp Metabolic Vmi368 ALK PHOS 53 U/L 12/13/2014 Comp Metabolic Ckt966 AST(SGOT) 17 U/L 12/13/2014 Comp Metabolic Lup917 ALT(SGPT) 17 U/L 12/13/2014 Comp Metabolic Ghl217 BILI T 0.6 mg/dL 12/13/2014 Comp Metabolic Osq909 ALBUMIN 4.0 g/dL 12/13/2014 Comp Metabolic Krj222 TPRO 6.3 g/dL 12/13/2014 Comp Metabolic Glq493 GLOB 2.3 g/dL 12/13/2014 Comp Metabolic Trc579 A/G Ratio 1.7 Ratio 12/13/2014 Comp Metabolic Vgk170 Osmo 280 mOsmo 12/13/2014 Free T4 Dyx283 FREE T4 1.34 ng/dL 12/13/2014 Cbc With [...] hTSH II 1.16 uIU/mL 12/13/2014 GFR CALC 1415484 GFR AA 43.0L ML/MIN 11/15/2013 GFR CALC 3999762 GFR NON-AA 36.0L ML/MIN 11/15/2013 TSH 7626320 TSH 1.474 uIU/ML 11/15/2013 FREE T4 8577466 FREE T4 1.50 NG/DL 11/15/2013 CHEM 14 0423945 AST 19 U/L 11/15/2013 CHEM 14 4848348 ALT 17 IU/L 11/15/2013 CHEM 14 0679959 BUN 37 MG/DL 11/15/2013 CHEM 14 4507057 ALBUMIN 4.5 GM/DL 11/15/2013 CHEM 14 0614387 CHLORIDE 105 MMOL/L 11/15/2013 CHEM 14 20271106 BILI TOT 0.8 MG/DL 11/15/2013 CHEM 14 3829769 ALK PHOS 59 U/L 11/15/2013 CHEM 14 9518414 SODIUM 138 MMOL/L 11/15/2013 CHEM 14 7652958 CREATININE 1.41 MG/DL 11/15/2013 CHEM 14 7987414 CALCIUM 9.6 MG/DL 11/15/2013 CHEM 14 2832667 POTASSIUM 4.3 MMOL/L 11/15/2013 CHEM 14 1825744 PROT TOT 6.8 GM/DL 11/15/2013 CHEM 14 6376072 GLUCOSE 75 MG/DL 11/15/2013 CHEM 14 6544207 BICARB 25 MMOL/L 11/15/2013 CHEM 14 6731814 ANION GAP 8 MEQ/L 11/15/2013 CBC 9000196 WBC 6.3 10e9/L 11/15/2013 CBC 9116153 RBC 4.28 10e12/L 11/15/2013 CBC 6141694 HGB 12.6 g/dL 11/15/2013 CBC 8291623 HCT DET 38.3 % 11/15/2013 CBC 9736517 MCV 89.5 fL 11/15/2013 CBC 4666460 MCH 29.4 pg 11/15/2013 CBC 7055085 MCHC 32.9 g/dL 11/15/2013 CBC 5007187 PLT 257 10e9/L 11/15/2013 CBC 2377368 MPV 10.5 fL 11/15/2013 CBC 2234939 MACHO % 67.7 % 11/15/2013 CBC 0907046 LY % 20.4 % 11/15/2013 CBC 9077699 MON % 10.5 % 11/15/2013 CBC 0657762 EOS % 1.1 % 11/15/2013 CBC 6302683 BASO % 0.3 % 11/15/2013 CBC 6633139 RDW 13.7 % 11/15/2013 CBC 1221900 ABS MACHO 4.27 10e9/L 11/15/2013 CBC 0381102 ABS LYMPH 1.29 10e9/L 11/15/2013 CBC 3894807 ABS MONO 0.66 10e9/L 11/15/2013 CBC 7334027 ABS EOS 0.07 10e9/L 11/15/2013 CBC 0414677 ABS BASO 0.02 10e9/L 11/15/2013 CBC 4207965 RDW-SD 44.0 fL 11/15/2013 TSH 1068122 TSH 2.498 uIU/ML 10/08/2012 ESR 4399941 ESR 18 MM/HR 10/08/2012 FREE T4 9554076 FREE T4 1.67 NG/DL 10/08/2012 CPK 3209579 CPK 36 U/L 10/07/2012 CHEM 14 5752031 AST 22 U/L 10/07/2012 CHEM 14 8935696 ALT 13 U/L 10/07/2012 CHEM 14 3805244 BUN 48 MG/DL 10/07/2012 CHEM 14 [id number] ALBUMIN 4.2 GM/DL 10/07/2012 CHEM 14 [id number] CHLORIDE 100 MMOL/L 10/07/2012 CHEM 14 [id number] BILI TOT 0.8 MG/DL 10/07/2012 CHEM 14 [id number] ALK PHOS 49 U/L 10/07/2012 CHEM 14 [id number] SODIUM 137 MMOL/L 10/07/2012 CHEM 14 [id number] CREATININE 1.94 MG/DL 10/07/2012 CHEM 14 [id number] CALCIUM 9.0 MG/DL 10/07/2012 CHEM 14 [id number] POTASSIUM 4.6 MMOL/L 10/07/2012 CHEM 14 [id number] PROT TOT 6.6 GM/DL 10/07/2012 CHEM 14 [id number] GLUCOSE 85 MG/DL 10/07/2012 CHEM 14 [id number] BICARB 25 MMOL/L 10/07/2012 CHEM 14 [id number] ANION GAP 12 MMOL/L 10/07/2012 CRP [id number] CRP 0.2 MG/DL 10/07/2012 CBC [id number] WBC 6.1 10e9/L 10/07/2012 CBC [id number] RBC 4.21 10e12/L 10/07/2012 CBC [id number] HGB 12.5 g/dL 10/07/2012 CBC [id number] HCT DET 37.9 % 10/07/2012 CBC [id number] MCV 90.0 fL 10/07/2012 CBC [id number] MCH 29.7 pg 10/07/2012 CBC [id number] MCHC 33.0 g/dL 10/07/2012 CBC [id number] PLT 325 10e9/L 10/07/2012 CBC [id number] MPV 10.3 fL 10/07/2012 CBC [id number] MACHO % 67.3 % 10/07/2012 CBC [id number] LY % 21.1 % 10/07/2012 CBC [id number] MON % 10.3 % 10/07/2012 CBC [id number] EOS % 1.0 % 10/07/2012 CBC [id number] BASO % 0.3 % 10/07/2012 CBC [id number] RDW 14.5 % 10/07/2012 CBC [id number] ABS MACHO 4.11 10e9/L 10/07/2012 CBC [id number] ABS LYMPH 1.29 10e9/L 10/07/2012 CBC [id number] ABS MONO 0.63 10e9/L 10/07/2012 CBC [id number] ABS EOS 0.06 10e9/L 10/07/2012 CBC [id number] ABS BASO 0.02 10e9/L 10/07/2012 CBC [id number] RDW-SD 46.9 fL 10/07/2012 GFR CALC [id number] GFR AA 30.0L ML/MIN 10/07/2012 GFR CALC [id number] GFR NON-AA 25.0L ML/MIN 10/07/2012 FREE T4 [id number] FREE T4 1.41 NG/DL 02/24/2012 LIPID GRP HDL TEST 65 MG/DL 02/23/2012 LIPID GRP TRIG 133 MG/DL 02/23/2012 LIPID GRP TEST LDL 58 MG/DL 02/23/2012 LIPID GRP CHOL 150 MG/DL 02/23/2012 LIPID GRP RCHOL/HDL 2.31 RATIO 02/23/2012 CBC [id number] WBC 6.1 10e9/L 02/23/2012 CBC [id number] RBC 4.15 10e12/L 02/23/2012 CBC [id number] HGB 12.3 g/dL 02/23/2012 CBC [id number] HCT DET 38.4 % 02/23/2012 CBC [id number] MCV 92.5 fL 02/23/2012 CBC [id number] MCH 29.6 pg 02/23/2012 CBC [id number] MCHC 32.0 g/dL 02/23/2012 CBC [id number] PLT 266 10e9/L 02/23/2012 CBC [id number] MPV 10.4 fL 02/23/2012 CBC [id number] MACHO % 62.5 % 02/23/2012 CBC [id number] LY % 25.7 % 02/23/2012 CBC [id number] MON % 10.0 % 02/23/2012 CBC [id number] EOS % 1.5 % 02/23/2012 CBC [id number] BASO % 0.3 % 02/23/2012 CBC [id number] RDW 13.4 % 02/23/2012 CBC [id number] ABS MACHO 3.81 10e9/L 02/23/2012 CBC [id number] ABS LYMPH 1.57 10e9/L 02/23/2012 CBC [id number] ABS MONO 0.61 10e9/L 02/23/2012 CBC [id number] ABS EOS 0.09 10e9/L 02/23/2012 CBC [id number] ABS BASO 0.02 10e9/L 02/23/2012 CBC [id number] RDW-SD 44.3 fL 02/23/2012 TSH [id number] TSH 5.107 uIU/ML 02/23/2012 CHEM 14 [id number] AST 17 U/L 02/23/2012 CHEM 14 [id number] ALT 15 IU/L 02/23/2012 CHEM 14 [id number] BUN 27 MG/DL 02/23/2012 CHEM 14 [id number] ALBUMIN 4.1 GM/DL 02/23/2012 CHEM 14 [id number] CHLORIDE 107 MMOL/L 02/23/2012 CHEM 14 [id number] BILI TOT 0.6 MG/DL 02/23/2012 CHEM 14 [id number] ALK PHOS 53 U/L 02/23/2012 CHEM 14 [id number] SODIUM 141 MMOL/L 02/23/2012 CHEM 14 [id number] CREATININE 1.30 MG/DL 02/23/2012 CHEM 14 [id number] CALCIUM 9.2 MG/DL 02/23/2012 CHEM 14 [id number] POTASSIUM 4.0 MMOL/L 02/23/2012 CHEM 14 [id number] PROT TOT 6.3 GM/DL 02/23/2012 CHEM 14 [id number] GLUCOSE 81 MG/DL 02/23/2012 CHEM 14 [id number] BICARB 26 MMOL/L 02/23/2012 CHEM 14 [id number] ANION GAP 8 MEQ/L 02/23/2012 GFR CALC 7789478 GFR AA 48.0L ML/MIN 02/23/2012 GFR CALC 1032901 GFR NON-AA 39.0L ML/MIN 02/23/2012 URINALYSIS NONAUTO W/O SCOPE 19239 Specific [place] 1.020 DateTime(Free Text in Aprima) URINALYSIS NONAUTO W/O SCOPE 52586 PH 7.2 DateTime(Free Text in Aprima) URINALYSIS NONAUTO W/O SCOPE 28716 GLUCOSE neg DateTime( Free Text in Aprima) URINALYSIS NONAUTO W/O SCOPE 65123 Protein 2+ DateTime( Free Text in Aprima) URINALYSIS NONAUTO W/O SCOPE 23085 Blood 1+ DateTime(Free Text in Aprima) URINALYSIS NONAUTO W/O SCOPE 92472 Bilirubin neg DateTime(Free Text in Aprima) URINALYSIS NONAUTO W/O SCOPE 54042 Ketones neg DateTime( Free Text in Aprima) URINALYSIS NONAUTO W/O SCOPE 57572 Urobilinogen neg DateTime(Free Text in Aprima) URINALYSIS NONAUTO W/O SCOPE 05118 Nitrite neg DateTime( Free Text in Aprima) URINALYSIS NONAUTO W/O SCOPE 97385 Leukocytes 1+ DateTime(Free Text in Aprima) URINALYSIS NONAUTO W/O SCOPE 87697 Specific [place] 1.010 DateTime(Free Text in Aprima) URINALYSIS NONAUTO W/O SCOPE 80723 PH 5 DateTime(Free Text in Aprima) URINALYSIS NONAUTO W/O SCOPE 81242 GLUCOSE DateTime( Free Text in Aprima) URINALYSIS NONAUTO W/O SCOPE 94503 Protein DateTime( Free Text in Aprima) URINALYSIS NONAUTO W/O SCOPE 48408 Blood DateTime(Free Text in Aprima) URINALYSIS NONAUTO W/O SCOPE 21535 Bilirubin DateTime( Free Text in Aprima) URINALYSIS NONAUTO W/O SCOPE 27162 Ketones DateTime( Free Text in Aprima) URINALYSIS NONAUTO W/O SCOPE 85099 Urobilinogen DateTime (Free Text in Aprima) URINALYSIS NONAUTO W/O SCOPE 09713 Nitrite DateTime( Free Text in Aprima) URINALYSIS NONAUTO W/O SCOPE 13546 Leukocytes DateTime( Free Text in Aprima) URINALYSIS NONAUTO W/O SCOPE 86759 Specific [place] 1.010 DateTime(Free Text in Aprima) URINALYSIS NONAUTO W/O SCOPE 21194 PH 7.5 DateTime(Free Text in Aprima) URINALYSIS NONAUTO W/O SCOPE 12630 GLUCOSE DateTime( Free Text in Aprima) URINALYSIS NONAUTO W/O SCOPE 04521 Protein DateTime( Free Text in Aprima) URINALYSIS NONAUTO W/O SCOPE 04198 Blood 3+ DateTime(Free Text in Aprima) URINALYSIS NONAUTO W/O SCOPE 49242 Bilirubin DateTime( Free Text in Aprima) URINALYSIS NONAUTO W/O SCOPE 30559 Ketones DateTime( Free Text in Aprima) URINALYSIS NONAUTO W/O SCOPE 20516 Urobilinogen DateTime (Free Text in Aprima) URINALYSIS NONAUTO W/O SCOPE 97658 Nitrite DateTime( Free Text in Aprima) URINALYSIS NONAUTO W/O SCOPE 44742 Leukocytes DateTime( Free Text in Aprima) UA 05317 Specific [place] DateTime(Free Text in Aprima) UA 69845 PH DateTime(Free Text in Aprima) UA 84989 GLUCOSE DateTime(Free Text in Aprima) UA 72108 Protein DateTime(Free Text in Aprima) UA 32902 Blood DateTime(Free Text in Aprima) UA 89771 Bilirubin DateTime(Free Text in Aprima) UA 05453 Ketones DateTime(Free Text in Aprima) UA 83801 Urobilinogen DateTime(Free Text in Aprima) UA 58493 Nitrite DateTime(Free Text in Aprima) UA 44117 Leukocytes DateTime(Free Text in ) Review of Systems System Result Effective Dates Constitutional No recent illness 2017 Constitutional No insomnia 02/01/2018 Eyes No blindness 02/01/2018 Eyes No vision change 02/01/2018 Ears/Nose/Throat/Neck No postnasal drip 02/01/2018 Cardiovascular No chest pain/pressure 05/2017 Cardiovascular No dyspnea 02/01/2018 Cardiovascular No edema 02/01/2018 Cardiovascular hypertension 02/01/2018 Respiratory No chest congestion 2017 Respiratory No cough 02/01/2018 Gastrointestinal No abdominal pain 2017 Gastrointestinal No constipation 2017 Gastrointestinal No diarrhea 02/01/2018 Gastrointestinal No nausea 02/01/2018 Gastrointestinal No vomiting 02/01/2018 Genitourinary/Nephrology No dysuria 02/01 Musculoskeletal stiffness 02/01/2018 Musculoskeletal arthralgia(s) 02/01/2018 Musculoskeletal back pain 02/01/2018 Dermatologic No rash 02/01/2018 Dermatologic No sores 02/01/2018 Psychiatric No anxiety 02/01/2018 Psychiatric depression 02/01/2018 Constitutional fatigue 02/01/2018 Constitutional No recent illness 2017 Constitutional No insomnia 11/24/2017 Eyes No blindness 11/24/2017 Eyes No vision change 11/24/2017 Ears/Nose/Throat/Neck No postnasal drip 11/24/2017 Cardiovascular No chest pain/pressure Cardiovascular No dyspnea 11/24/2017 Cardiovascular No edema 11/24/2017 Cardiovascular hypertension 11/24/2017 Respiratory No chest congestion 2017 Respiratory No cough 11/24/2017 Gastrointestinal No abdominal pain 2017 Gastrointestinal No constipation 2017 Gastrointestinal No diarrhea 11/24/2017 Gastrointestinal No nausea 11/24/2017 Gastrointestinal No vomiting 11/24/2017 Genitourinary/Nephrology No dysuria 11/24 Musculoskeletal stiffness 11/24/2017 Musculoskeletal arthralgia(s) 11/24/2017 Musculoskeletal back pain 11/24/2017 Psychiatric No anxiety 11/24/2017 Psychiatric depression 11/24/2017 Dermatologic No rash 11/24/2017 Dermatologic No sores 11/24/2017 Constitutional No recent illness 2017 Constitutional No insomnia 09/08/2017 Eyes No blindness 09/08/2017 Eyes No vision change 09/08/2017 Ears/Nose/Throat/Neck No postnasal drip 09/08/2017 Cardiovascular No chest pain/pressure 12/2017 Cardiovascular No dyspnea 09/08/2017 Cardiovascular No edema 09/08/2017 Cardiovascular hypertension 09/08/2017 Respiratory No chest congestion 2017 Respiratory No cough 09/08/2017 Gastrointestinal No abdominal pain 2017 Gastrointestinal No constipation 2017 Gastrointestinal No diarrhea 09/08/2017 Gastrointestinal No nausea 09/08/2017 Gastrointestinal No vomiting 09/08/2017 Genitourinary/Nephrology No dysuria 09/08 Musculoskeletal stiffness 09/08/2017 Musculoskeletal arthralgia(s) 09/08/2017 Musculoskeletal back pain 09/08/2017 Psychiatric No anxiety 09/08/2017 Psychiatric depression 09/08/2017 Constitutional No recent illness 2017 Constitutional No insomnia 08/25/2017 Eyes No blindness 08/25/2017 Eyes No vision change 08/25/2017 Ears/Nose/Throat/Neck No postnasal drip 08/25/2017 Cardiovascular No chest pain/pressure Cardiovascular No dyspnea 08/25/2017 Cardiovascular No edema 08/25/2017 Cardiovascular hypertension 08/25/2017 Respiratory No chest congestion 2017 Respiratory No cough 08/25/2017 Gastrointestinal No abdominal pain 2017 Gastrointestinal No constipation 2017 Gastrointestinal No diarrhea 08/25/2017 Gastrointestinal No nausea 08/25/2017 Gastrointestinal No vomiting 08/25/2017 Genitourinary/Nephrology No dysuria 08/25 Musculoskeletal stiffness 08/25/2017 Musculoskeletal arthralgia(s) 08/25/2017 Musculoskeletal back pain 08/25/2017 Psychiatric No anxiety 08/25/2017 Psychiatric depression 08/25/2017 Constitutional No recent illness 2017 Constitutional No insomnia 07/28/2017 Cardiovascular No chest pain/pressure Cardiovascular No dyspnea 07/28/2017 Cardiovascular No edema 07/28/2017 Cardiovascular hypertension 07/28/2017 Respiratory No chest congestion 2017 Respiratory No cough 07/28/2017 Gastrointestinal No abdominal pain 2017 Gastrointestinal No constipation 2017 Gastrointestinal No diarrhea 07/28/2017 Gastrointestinal No nausea 07/28/2017 Gastrointestinal No vomiting 07/28/2017 Musculoskeletal stiffness 07/28/2017 Musculoskeletal arthralgia(s) 07/28/2017 Musculoskeletal back pain 07/28/2017 Psychiatric No anxiety 07/28/2017 Psychiatric depression 07/28/2017 Constitutional No recent illness 2017 Constitutional No chills 06/11/2017 Constitutional No fever 06/11/2017 Eyes No eye erythema 06/11/2017 Ears/Nose/Throat/Neck No nasal discharge 06/11/2017 Cardiovascular No chest pain/pressure 12/2017 Cardiovascular No dyspnea 06/11/2017 Respiratory No cough 06/11/2017 Respiratory No dyspnea 06/11/2017 Neurologic No alteration of consciousness 06/11/2017 Neurologic No mental status change 2017 Musculoskeletal back pain 06/11/2017 Musculoskeletal joint complaint 2017 Constitutional recent illness 05/05/2017 Constitutional No insomnia [...] 1994 Constitutional general appearance Overall: well developed 02/01/2018 None Full Exam - General 1994 Constitutional general appearance Overall: in no acute distress 02/01/2018 None Full Exam - General 1994 Constitutional general appearance Overall: well nourished 02/01/2018 None Full Exam - General 1994 Eyes pupils and irises Overall: pupils equal, round, reactive to light and accomodation 02/01/2018 None Full Exam - General 1994 Ears/Nose/Throat otoscopic exam Overall: external auditory canals clear 02/01/2018 None Full Exam - General 1994 Ears/Nose/Throat otoscopic exam Overall: tympanic membranes clear 02/01/2018 None Full Exam - General 1994 Ears/Nose/Throat oral cavity/pharynx/larynx Overall: oral mucosa clear 02/01/2018 None Full Exam - General 1994 Respiratory auscultation Overall: breath sounds clear bilaterally 02/01/2018 None Full Exam - General 1994 Respiratory respiratory effort/rhythm Overall: no retractions 02/01/2018 None Full Exam - General 1994 Respiratory respiratory effort/rhythm Overall: normal rate 02/01/2018 None Full Exam - General 1994 Cardiovascular auscultation of heart Overall: regular rate 02/01/2018 None Full Exam - General 1994 Cardiovascular auscultation of heart Overall: normal heart sounds 02/01/2018 None Full Exam - General 1994 Cardiovascular auscultation of heart Overall: no murmurs 02/01/2018 None Full Exam - General 1994 Musculoskeletal lower extremity Palpation - knee: crepitus 02/01/2018 None Full Exam - General 1994 Musculoskeletal head and neck Overall: head atraumatic 02/01/2018 None Full Exam - General 1994 Psychiatric orientation/consciousness Overall: oriented to person, place and time 02/01/2018 None Full Exam - General 1994 Psychiatric mood and affect Overall: normal mood and affect 02/01/2018 None Full Exam - General 1994 Constitutional general appearance Overall: well developed 11/24/2017 None Full Exam - General 1994 Constitutional general appearance Overall: in no acute distress 11/24/2017 None Full Exam - General 1994 Constitutional general appearance Overall: well nourished 11/24/2017 None Full Exam - General 1994 Eyes pupils and irises Overall: pupils equal, round, reactive to light and accomodation 11/24/2017 None Full Exam - General 1994 Ears/Nose/Throat otoscopic exam Overall: external auditory canals clear 11/24/2017 None Full Exam - General 1994 Ears/Nose/Throat otoscopic exam Overall: tympanic membranes clear 11/24/2017 None Full Exam - General 1994 Ears/Nose/Throat oral cavity/pharynx/larynx Overall: oral mucosa clear 11/24/2017 None Full Exam - General 1994 Respiratory auscultation Overall: breath sounds clear bilaterally 11/24/2017 None Full Exam - General 1994 Respiratory respiratory effort/rhythm Overall: no retractions 11/24/2017 None Full Exam - General 1994 Respiratory respiratory effort/rhythm Overall: normal rate 11/24/2017 None Full Exam - General 1994 Cardiovascular auscultation of heart Overall: regular rate 11/24/2017 None Full Exam - General 1994 Cardiovascular auscultation of heart Overall: normal heart sounds 11/24/2017 None Full Exam - General 1994 Cardiovascular auscultation of heart Overall: no murmurs 11/24/2017 None Full Exam - General 1994 Abdomen abdominal exam Overall: no tenderness 11/24/2017 None Full Exam - General 1994 Abdomen abdominal exam Overall: normal bowel sounds 11/24/2017 None Full Exam - General 1994 Musculoskeletal lower extremity Palpation - knee: crepitus 11/24/2017 None Full Exam - General 1994 Musculoskeletal head and neck Overall: head atraumatic 11/24/2017 None Full Exam - General 1994 Neurologic cranial nerves Overall: crainial nerves 2 - 12 grossly intact 11/24/2017 None Full Exam - General 1994 Psychiatric orientation/consciousness Overall: oriented to person, place and time 11/24/2017 None Full Exam - General 1994 Psychiatric mood and affect Overall: normal mood and affect 11/24/2017 None Full Exam - General 1994 Constitutional general appearance Overall: well developed 09/08/2017 None Full Exam - General 1994 Constitutional general appearance Overall: in no acute distress 09/08/2017 None Full Exam - General 1994 Constitutional general appearance Overall: well nourished 09/08/2017 None Full Exam - General 1994 Eyes pupils and irises Overall: pupils equal, round, reactive to light and accomodation 09/08/2017 None Full Exam - General 1994 Ears/Nose/Throat otoscopic exam Overall: external auditory canals clear 09/08/2017 None Full Exam - General 1994 Ears/Nose/Throat otoscopic exam Overall: tympanic membranes clear 09/08/2017 None Full Exam - General 1994 Ears/Nose/Throat oral cavity/pharynx/larynx Overall: oral mucosa clear 09/08/2017 None Full Exam - General 1994 Respiratory auscultation Overall: breath sounds clear bilaterally 09/08/2017 None Full Exam - General 1994 Respiratory respiratory effort/rhythm Overall: no retractions 09/08/2017 None Full Exam - General 1994 Respiratory respiratory effort/rhythm Overall: normal rate 09/08/2017 None Full Exam - General 1994 Cardiovascular auscultation of heart Overall: regular rate 09/08/2017 None Full Exam - General 1994 Cardiovascular auscultation of heart Overall: normal heart sounds 09/08/2017 None Full Exam - General 1994 Cardiovascular auscultation of heart Overall: no murmurs 09/08/2017 None Full Exam - General 1994 Musculoskeletal head and neck Overall: head atraumatic 09/08/2017 None Full Exam - General 1994 Neurologic cranial nerves Overall: crainial nerves 2 - 12 grossly intact 09/08/2017 None Full Exam - General 1994 Psychiatric orientation/consciousness Overall: oriented to person, place and time 09/08/2017 None Full Exam - General 1994 Psychiatric mood and affect Overall: normal mood and affect 09/08/2017 None Full Exam - General 1994 Constitutional general appearance Overall: well developed 08/25/2017 None Full Exam - General 1994 Constitutional general appearance Overall: in no acute distress 08/25/2017 None Full Exam - General 1994 Constitutional general appearance Overall: well nourished 08/25/2017 None Full Exam - General 1994 Eyes pupils and irises Overall: pupils equal, round, reactive to light and accomodation 08/25/2017 None Full Exam - General 1994 Ears/Nose/Throat otoscopic exam Overall: external auditory canals clear 08/25/2017 None Full Exam - General 1994 Ears/Nose/Throat otoscopic exam Overall: tympanic membranes clear 08/25/2017 None Full Exam - General 1994 Ears/Nose/Throat oral cavity/pharynx/larynx Overall: oral mucosa clear 08/25/2017 None Full Exam - General 1994 Respiratory auscultation Overall: breath sounds clear bilaterally 08/25/2017 None Full Exam - General 1994 Respiratory respiratory effort/rhythm Overall: no retractions 08/25/2017 None Full Exam - General 1994 Respiratory respiratory effort/rhythm Overall: normal rate 08/25/2017 None Full Exam - General 1994 Cardiovascular auscultation of heart Overall: regular rate 08/25/2017 None Full Exam - General 1994 Cardiovascular auscultation of heart Overall: normal heart sounds 08/25/2017 None Full Exam - General 1994 Cardiovascular auscultation of heart Overall: no murmurs 08/25/2017 None Full Exam - General 1994 Abdomen abdominal exam Overall: no tenderness 08/25/2017 None Full Exam - General 1994 Abdomen abdominal exam Overall: normal bowel sounds 08/25/2017 None Full Exam - General 1994 Musculoskeletal head and neck Overall: head atraumatic 08/25/2017 None Full Exam - General 1994 Neurologic cranial nerves Overall: crainial nerves 2 - 12 grossly intact 08/25/2017 None Full Exam - General 1994 Psychiatric orientation/consciousness Overall: oriented to person, place and time 08/25/2017 None Full Exam - General 1994 Psychiatric mood and affect Overall: normal mood and affect 08/25/2017 None Full Exam - General 1994 Musculoskeletal lower extremity Palpation - knee: crepitus 08/25/2017 None Full Exam - General 1994 Constitutional general appearance Overall: well developed 07/28/2017 None Full Exam - General 1994 Constitutional general appearance Overall: in no acute distress 07/28/2017 None Full Exam - General 1994 Constitutional general appearance Overall: well nourished 07/28/2017 None Full Exam - General 1994 Eyes pupils and irises Overall: pupils equal, round, reactive to light and accomodation 07/28/2017 None Full Exam - General 1994 Respiratory auscultation Overall: breath sounds clear bilaterally 07/28/2017 None Full Exam - General 1994 Respiratory respiratory effort/rhythm Overall: no retractions 07/28/2017 None Full Exam - General 1994 Respiratory respiratory effort/rhythm Overall: normal rate 07/28/2017 None Full Exam - General 1994 Cardiovascular auscultation of heart Overall: regular rate 07/28/2017 None Full Exam - General 1994 Cardiovascular auscultation of heart Overall: normal heart sounds 07/28/2017 None Full Exam - General 1994 Cardiovascular auscultation of heart Overall: no murmurs 07/28/2017 None Full Exam - General 1994 Psychiatric orientation/consciousness Overall: oriented to person, place and time 07/28/2017 None Full Exam - General 1994 Psychiatric mood and affect Overall: normal mood and affect 07/28/2017 None Full Exam - General 1994 Musculoskeletal lower extremity Palpation - lower leg: tenderness along lateral lower legs at fibular head. 07/28 None Full Exam - Orthopedics Constitutional general appearance Overall: well nourished 06/11/2017 None Full Exam - Orthopedics Constitutional general appearance Overall: well developed 06/11/2017 None Full Exam - Orthopedics Constitutional general appearance Overall: in no acute distress 06/11/2017 None Full Exam - Orthopedics Eyes conjunctiva/ eyelids Overall: conjunctiva clear 06/11/2017 None Full Exam - Orthopedics Eyes conjunctiva/ eyelids Overall: eyelids normal 06/11/2017 None Full Exam - Orthopedics Ears/Nose/Throat lips/teeth/gingiva Overall: benign lips 06/11/2017 None Full Exam - Orthopedics Ears/Nose/Throat oral cavity/pharynx/larynx Overall: oral mucosa clear 06/11/2017 None Full Exam - Orthopedics Respiratory respiratory effort/rhythm Overall: no retractions 06/11/2017 None Full Exam - Orthopedics Respiratory respiratory effort/rhythm Overall: normal rate 06/11/2017 None Full Exam - Orthopedics Psychiatric orientation/consciousness Overall: oriented to person, place and time 06/11/2017 None Full Exam - Orthopedics Psychiatric mood and affect Overall: normal mood and affect 06/11/2017 None Full Exam - Orthopedics Psychiatric appearance Overall: well-groomed, good eye contact 06/11/2017 None Full Exam - Orthopedics MS: spine/rib/pelvis insp & palp - S/R/P Thoracic/lumbar muscles palpation: tender right parathoracic 06/11/2017 None Full Exam - Orthopedics MS: head/neck insp & palp - H/N Overall: head atraumatic 06/11/2017 None Full Exam - General 1994 Constitutional [...] retractions 03/03/2013 None Full Exam - General 1995 Respiratory respiratory effort/rhythm Overall: normal rate 03/03/2013 [...] sounds 03/03/2013 None Full Exam - General 1995 Musculoskeletal [...] affect 02/16/2013 None Full Exam - General 1995 Ears/Nose/Throat otoscopic exam Overall: tympanic membranes clear 02/16/2013 None Full Exam - General 1995 Ears/Nose/Throat otoscopic exam Overall: external auditory canals clear 02/16/2013 None Full Exam - General 1995 Ears/Nose/Throat oral cavity/pharynx/larynx Overall: oropharyngeal mucosa clear 02/16/2013 None Full Exam - General 1994 Ears/Nose/Throat oral cavity/pharynx/larynx Overall: oral mucosa clear 02/16/2013 None Full Exam - General 1995 Ears/Nose/Throat oral cavity/pharynx/larynx Parotid: enlarged 02/16/2013 None Full Exam - General 1995 Ears/Nose/Throat oral cavity/pharynx/larynx Parotid: tender 02/16/2013 None Full Exam - General 1995 Ears/Nose/Throat oral cavity/pharynx/larynx Parotid: firm 02/16/2013 None [...] distress 02/02/2013 None Full Exam - General 1994 Constitutional general appearance Overall: well nourished 02/02/2013 None Full Exam - General 1994 Eyes pupils and irises Overall: pupils equal, round, reactive to light and accomodation 02/02/2013 None Full Exam - General 1994 Respiratory auscultation Overall: breath sounds clear bilaterally 02/02/2013 None Full Exam - General 1995 Respiratory respiratory effort/rhythm Overall: no retractions 02/02/2013 None Full Exam - General 1995 Respiratory respiratory effort/rhythm Overall: normal rate 02/02/2013 None Full Exam - General 1995 Cardiovascular auscultation of heart Overall: regular rate 02/02/2013 None Full Exam - General 1995 Cardiovascular auscultation of heart Overall: normal heart sounds 02/02/2013 None Full Exam - General 1994 Cardiovascular auscultation of heart Overall: no murmurs 02/02/2013 None Full Exam - General 1995 Abdomen abdominal exam Overall: no tenderness 02/02/2013 None Full Exam - General 1995 Abdomen abdominal exam Overall: normal bowel sounds 02/02/2013 None Full Exam - General 1995 Musculoskeletal [...] - General 1995 Ears/Nose/Throat otoscopic exam Overall: external auditory canals clear 02/02/2013 None Full Exam - General 1994 Ears/Nose/Throat oral cavity/pharynx/larynx Overall: oropharyngeal mucosa clear 02/02/2013 None Full Exam - General 1994 Ears/Nose/Throat oral cavity/pharynx/larynx Overall: no masses 02/02/2013 None Full Exam - General 1995 Ears/Nose/Throat oral cavity/pharynx/larynx Overall: oral mucosa clear 02/02/2013 None Full Exam - General 1994 Musculoskeletal spine, ribs and pelvis Spine: tender @ cervical spine 02/02/2013 along musculature - pt has multiple sites of tenderness - several "trigger points" Full Exam - General 1994 Constitutional general appearance Overall: well developed 10/07/2012 None Full Exam - General 1994 Constitutional general appearance Overall: in no acute distress 10/07/2012 None Full Exam - General 1994 Constitutional general appearance Overall: well nourished 10/07/2012 None Full Exam - General 1995 Eyes pupils and irises Overall: pupils equal, round, reactive to light and accomodation 10/07/2012 None Full Exam - General 1995 Respiratory auscultation Overall: breath sounds clear bilaterally 10/07/2012 None Full Exam - General 1995 Respiratory respiratory effort/rhythm Overall: no retractions 10/07/2012 None Full Exam - General 1995 Respiratory respiratory effort/rhythm Overall: normal rate 10/07/2012 None Full Exam - General 1995 Cardiovascular auscultation of heart Overall: regular rate 10/07/2012 None Full Exam - General 1995 Cardiovascular auscultation of heart Overall: normal heart sounds 10/07/2012 None Full Exam - General 1995 Cardiovascular auscultation of heart Overall: no murmurs 10/07/2012 None Full Exam - General 1994 Abdomen abdominal exam Overall: no tenderness 10/07/2012 None Full Exam - General 1994 [...] affect 10/07/2012 None Full Exam - General 1994 Constitutional general appearance Overall: well developed 08/18/2012 [...] tenderness 08/18/2012 None Full Exam - General 1995 Abdomen abdominal exam Overall: normal bowel sounds 08/18/2012 None Full Exam - General 1995 Musculoskeletal head and neck Overall: head atraumatic 08/18/2012 None Full Exam - General 1994 Musculoskeletal head and neck Overall: cervical spine benign 08/18/2012 None Full Exam - General 1995 Neurologic [...] rate 07/14/2012 None Full Exam - General 1994 Cardiovascular auscultation of heart Overall: regular rate 07/14/2012 None Full Exam - General 1994 Cardiovascular auscultation of heart Overall: normal heart sounds 07/14/2012 None Full Exam - General 1994 Cardiovascular auscultation of heart Overall: no murmurs 07/14/2012 None Full Exam - General 1994 Abdomen abdominal exam Overall: no tenderness 07/14/2012 None Full Exam - General 1994 Abdomen abdominal exam Overall: normal bowel sounds 07/14/2012 None Full Exam - General 1994 Musculoskeletal head and neck Overall: head atraumatic 07/14/2012 None Full Exam - General 1994 Musculoskeletal head and neck Overall: cervical spine benign 07/14/2012 None Full Exam - General 1994 Neurologic cranial nerves Overall: crainial nerves 2 - 12 grossly intact 07/14/2012 None Full Exam - General 1994 Constitutional general appearance Overall: well developed 07/14/2012 None Full Exam - General 1994 Psychiatric orientation/consciousness Overall: oriented to person, place and time 07/14/2012 None Full Exam - General 1994 Psychiatric mood and affect Overall: normal mood and affect 07/14/2012 None Full Exam - General 1995 Eyes pupils and irises Overall: pupils equal, round, reactive to light and accomodation 06/23/2012 None Full Exam - General 1995 Respiratory auscultation Overall: breath sounds clear bilaterally 06/23/2012 None Full Exam - General 1995 Respiratory respiratory effort/rhythm Overall: no retractions 06/23/2012 None Full Exam - General 1995 Respiratory respiratory effort/rhythm Overall: normal rate 06/23/2012 [...] nourished 06/23/2012 None Full Exam - General 1995 Ears/Nose/Throat otoscopic exam Overall: tympanic membranes clear 06/23/2012 None Full Exam - General 1995 Ears/Nose/Throat otoscopic exam Overall: external auditory canals [...] tenderness 02/19/2012 None Full Exam - General 1994 [...] murmurs 08/05/2011 None Full Exam - General 1995 Constitutional general appearance Overall: well nourished 08/05/2011 None Full Exam - General 1995 Constitutional general appearance Overall: well developed 08/05/2011 None Full Exam - General 1994 Constitutional general appearance Overall: in no acute distress 08/05/2011 None Full Exam - General 1994 Eyes pupils and irises Overall: pupils equal, round, reactive to light and accomodation 08/05/2011 None Full Exam - General 1995 Musculoskeletal [...] 1994 Constitutional general appearance Overall: well nourished 07/07/2011 [...] bilaterally 07/07/2011 None Full Exam - General 1994 Respiratory respiratory effort/rhythm Overall: no retractions 07/07/2011 None Full Exam - General 1994 Respiratory respiratory effort/rhythm Overall: normal rate 07/07/2011 [...] tenderness 07/07/2011 None Full Exam - General 1995 Abdomen abdominal exam Overall: normal bowel sounds 07/07/2011 None Full Exam - General 1995 Musculoskeletal [...] time 07/07/2011 None Full Exam - General 1995 Psychiatric mood and affect Overall: normal mood and affect 07/07/2011 None Full Exam - General 1995 Constitutional general appearance Overall: well nourished 06/16/2011 [...] Date ADMIN INFLUENZA VIRUS VAC CPT-4: G0008 02/01/2018 FLU VACC PRSV FREE INC ANTIG CPT-4: 00992 02/01/2018 URINALYSIS NONAUTO W/O SCOPE CPT-4: 67561 01/05/2018 PPPS, SUBSEQ VISIT CPT -4: G0439 09/08/2017 ADMIN INFLUENZA VIRUS VAC CPT-4: G0008 02/13/2016 FLU VACC 4 BRIGID 3 YRS PLUS IM Formatting Model/CDA Sections, Assigned to/Jacqueline Goodwin SNOMED CT: 58863238 CPT-4: 48057Kfzuada 02/13/2016 TRIAMCINOLONE ACET INJ NOS CPT-4: J3301 06/29/2015 ADMIN INFLUENZA VIRUS VAC Formatting Model/CDA Sections, Assigned to CPT-4: [id number] 03/22/2015 ADMIN PNEUMOCOCCAL VACCINE Formatting Model/CDA Sections, Assigned to SNOMED CT: 94570931 CPT-4: [id number] 03/22/2015 FLU VACC PRSV FREE INC ANTIG CPT-4: 40446 03/22/2015 PNEUMOCOCCAL VACC 13 BRIGID IM Formatting Model/CDA Sections, Assigned to SNOMED CT: 33563084 CPT-4: 81375Wwaftqt 03/22/2015 TRIAMCINOLONE ACET INJ NOS CPT-4: J3301 08/22/2014 INJ TRIGGER POINT 1/2 MUSCL CPT-4: 23430 08/22/2014 ROUTINE VENIPUNCTURE CPT-4: 39128 11/15/2013 THER/PROPH/DIAG INJ SC/IM CPT-4: 31435 09/02/2013 ROCEPHIN, PER 250 MG CPT-4: J0696 09/02/2013 THER/PROPH/DIAG INJ SC/IM CPT-4: 63539 09/01/2013 ROCEPHIN, PER 250 MG CPT-4: J0696 09/01/2013 URINALYSIS NONAUTO W/O SCOPE CPT-4: 45940 08/31/2013 THER/PROPH/DIAG INJ SC/IM CPT-4: 67693 08/31/2013 URINALYSIS NONAUTO W/O SCOPE CPT-4: 80791 08/23/2013 URINALYSIS NONAUTO W/O SCOPE CPT-4: 71012 03/04/2013 ADMIN INFLUENZA VIRUS VAC CPT-4: G0008 02/02/2013 FLULAVAL VACC, 3 YRS & >, IM CPT-4: Q2036 02/02/2013 TRIAMCINOLONE ACET INJ NOS CPT-4: J3301 10/07/2012 ROUTINE VENIPUNCTURE CPT-4: 56874 10/07/2012 THER/PROPH/DIAG INJ SC/IM CPT-4: 09210 10/07/2012 URINALYSIS NONAUTO W/O SCOPE CPT-4: 35202 10/07/2012 PRESCRIP TRANSMIT VIA ERX SY CPT-4: G8553 10/07/2012 URINALYSIS NONAUTO W/O SCOPE CPT-4: 24572 09/21/2012 PRESCRIP TRANSMIT VIA ERX SY CPT-4: G8553 06/23/2012 ROUTINE VENIPUNCTURE CPT-4: 22805 02/23/2012 ADMIN INFLUENZA VIRUS VAC CPT-4: G0008 02/19/2012 FLULAVAL VACC, 3 YRS & >, IM CPT-4: Q2036 02/19/2012 ADMIN INFLUENZA VIRUS VAC CPT-4: G0008 02/17/2011 FLULAVAL VACC, 3 YRS & >, IM CPT-4: Q2036 02/17/2011 ADMIN PNEUMOCOCCAL VACCINE SNOMED CT: 15878806 CPT-4: G0009 02/17/2011 Pneumococcal Polysaccharide Vaccine, 23-Valent, Ad CPT-4: 53749 02/17/2011 Vital Signs Date Vital 02/01/2018 Blood Pressure 1: 144/68 Code : 8480-6 BMI: 25.4 Code : 45430-8 Heart Rate 1 : 76 bpm Height: 5'4" SpO2: 98% Weight: 148 lbs 11/24/2017 Blood Pressure 1: 140/70 Code : 8480-6 BMI: 25.7 Code : 83967-8 Heart Rate 1 : 76 bpm Height: 5'4" SpO2: 96% Weight: 150 lbs 09/08/2017 Blood Pressure 1: 158/74 Code : 8480-6 BMI: 25.9 Code : 41443-8 Heart Rate 1 : 87 bpm Height: 5'4" SpO2: 98% Waist Measure (cm): 93 cm Weight: 151 lbs 08/25/2017 Blood Pressure 1: 146/72 Code : 8480-6 BMI: 25.9 Code : 03444-7 Heart Rate 1 : 82 bpm Height: 5'4" SpO2: 95% Weight: 151 lbs 07/28/2017 Blood Pressure 1: 156/70 Code : 8480-6 BMI: 25.8 Code : 54297-6 Heart Rate 1 : 80 bpm Height: 5'4" SpO2: 95% Weight: 151 lbs 06/11/2017 Blood Pressure 1: 164/80 Code : 8480-6 BMI: 25.9 Code : 11816-3 Heart Rate 1 : 80 bpm Height: 5'4" SpO2: 95% Weight: 152 lbs 05/05/2017 Blood Pressure 1: 132/76 Code : 8480-6 BMI: 26.4 Code : 73338-8 Heart Rate 1 : 77 bpm Height: 5'4" SpO2: 93% Temperature: 36.5 (C) / 97.7 (F) Weight: 155 lbs 04/21/2017 Blood Pressure 1: 140/68 Code : 8480-6 BMI: 26.3 Code : 65277-9 Heart Rate 1 : 77 bpm Height: 5'4" SpO2: 94% Weight: 154 lbs 03/31/2017 Blood Pressure 1: 122/70 Code : 8480-6 BMI: 26.4 Code : 01153-9 Heart Rate 1 : 117 bpm Height: 5'4" SpO2: 93% Temperature: 36.3 (C) / 97.4 (F) Weight: 155 lbs 03/02/2017 Blood Pressure 1: 150/74 Code : 8480-6 BMI: 27.6 Code : 55990-1 Heart Rate 1 : 61 bpm Height: 5'4" SpO2: 96% Weight: 162 lbs 12/16/2016 Blood Pressure 1: 160/74 Code : 8480-6 BMI: 27.8 Code : 67705-9 Heart Rate 1 : 74 bpm Height: 5'4" SpO2: 96% Weight: 163 lbs 11/18/2016 Blood Pressure 1: 140/80 Code : 8480-6 BMI: 28.3 Code : 12894-4 Heart Rate 1 : 76 bpm Height: 5'4" SpO2: 94% Weight: 166 lbs 09/22/2016 Blood Pressure 1: 136/64 Code : 8480-6 BMI: 28.7 Code : 93660-3 Heart Rate 1 : 75 bpm Height: 5'4" SpO2: 96% Weight: 168 lbs 07/29/2016 Blood Pressure 1: 156/82 Code : 8480-6 BMI: 27.9 Code : 62254-7 Heart Rate 1 : 73 bpm Height: 5'4" SpO2: 96% Weight: 163 lbs 8 oz 06/03/2016 Blood Pressure 1: 142/84 Code : 8480-6 BMI: 28.0 Code : 34826-6 Heart Rate 1 : 71 bpm Height: 5'4" SpO2: 97% Weight: 164 lbs 02/13/2016 Blood Pressure 1: 162/80 Code : 8480-6 BMI: 29.2 Code : 43628-1 Heart Rate 1 : 74 bpm Height: 5'4" Weight: 171 lbs 10/17/2015 Blood Pressure 1: 140/80 Code : 8480-6 Blood Pressure 1: 140/80 Code: 8480-6 BMI: 28.5 Code: 13626-2 Heart Rate 1: 71 bpm Height: 5'4" SpO2: 97% Weight: 167 lbs 07/11/2015 Blood Pressure 1: 152/82 Code : 8480-6 BMI: 27.6 Code : 22934-3 Heart Rate 1 : 75 bpm Height: 5'4" SpO2: 96% Weight: 162 lbs 06/29/2015 Blood Pressure 1: 148/78 Code : 8480-6 BMI: 27.3 Code : 92270-0 Heart Rate 1 : 75 bpm Height: 5'4" SpO2: 95% Weight: 160 lbs 04/02/2015 Blood Pressure 1: 158/78 Code : 8480-6 BMI: 27.0 Code : 07846-9 Heart Rate 1 : 66 bpm Height: 5'4" SpO2: 95% Weight: 160 lbs 03/22/2015 Blood Pressure 1: 142/80 Code : 8480-6 BMI: 28.0 Code : 43158-8 Heart Rate 1 : 72 bpm Height: 5'4" SpO2: 98% Weight: 164 lbs 02/22/2015 Blood Pressure 1: 150/76 Code : 8480-6 BMI: 28.0 Code : 04090-1 Heart Rate 1 : 79 bpm Height: 5'4" SpO2: 94% Weight: 164 lbs 12/13/2014 Blood Pressure 1: 136/80 Code : 8480-6 BMI: 28.0 Code : 54962-4 Heart Rate 1 : 64 bpm Height: 5'4" SpO2: 94% Weight: 164 lbs 09/05/2014 Blood Pressure 1: 130/82 Code : 8480-6 BMI: 27.8 Code : 73080-5 Heart Rate 1 : 65 bpm Height: 5'4" Weight: 163 lbs 08/22/2014 Blood Pressure 1: 172/92 Code : 8480-6 Blood Pressure 2: 190/102 Code: 8480-6 BMI: 28.0 Code: 96137-2 Heart Rate 1: 67 bpm Height: 5'4" SpO2: 97% Weight: 164 lbs 05/30/2014 Blood Pressure 1: 144/90 Code : 8480-6 Blood Pressure 2: 140/82 Code: 8480-6 BMI: 27.5 Code: 68621-2 Heart Rate 1: 68 bpm Height: 5'4" Weight: 161 lbs 03/02/2014 Blood Pressure 1: 152/84 Code : 8480-6 BMI: 27.5 Code : 49945-8 Heart Rate 1 : 72 bpm Height: 5'4" Weight: 161 lbs 11/15/2013 Blood Pressure 1: 138/90 Code : 8480-6 BMI: 27.0 Code : 83208-8 Heart Rate 1 : 60 bpm Height: 5'4" Weight: 158 lbs 09/13/2013 Blood Pressure 1: 142/78 Code : 8480-6 BMI: 27.3 Code : 16195-4 Heart Rate 1 : 76 bpm Height: [...] Code : 8480-6 BMI: 27.0 Code : 67285-3 Heart Rate 1 : 56 bpm Height: 5'4" Weight: 158 lbs 03/03/2013 Blood Pressure 1: 134/88 Code : 8480-6 BMI: 27.8 Code : 34752-1 Heart Rate 1 : 64 bpm Height: 5'4" Weight: 163 lbs 02/16/2013 Blood Pressure 1: 128/68 Code : 8480-6 BMI: 28.0 Code : 90378-0 Heart Rate 1 : 64 bpm Height: 5'4" Temperature: 36.9 (C) / 98.4 (F) Weight: 164 lbs 02/02/2013 Blood Pressure 1: 132/78 Code : 8480-6 BMI: 27.5 Code : 75073-0 Height: 5'4" Weight: 161 lbs 10/07/2012 Blood Pressure 1: 138/82 Code : 8480-6 BMI: 27.6 Code : 30052-7 Heart Rate 1 : 60 bpm Height: 5'4" Weight: 162 lbs 08/18/2012 Blood Pressure 1: 158/82 Code : 8480-6 BMI: 27.6 Code : 41862-9 Heart Rate 1 : 56 bpm Height: 5'4" Weight: 162 lbs 07/14/2012 Blood Pressure 1: 184/80 Code : 8480-6 BMI: 29.0 Code : 42020-2 Heart Rate 1 : 56 bpm Height: 5'4" Weight: 170 lbs 06/23/2012 Blood Pressure 1: 196/90 Code : 8480-6 BMI: 28.5 Code : 70609-2 Heart Rate 1 : 72 bpm Height: 5'4" Respiratory Rate: 16 bpm Weight: 167 lbs 02/19/2012 Blood Pressure 1: 154/72 Code : 8480-6 BMI: 28.1 Code : 29763-5 Heart Rate 1 : 56 bpm Height: 5'4" Weight: 165 lbs 08/05/2011 Blood Pressure 1: 190/84 Code : 8480-6 BMI: 26.9 Code : 92470-9 Heart Rate 1 : 52 bpm Height: 5'4" Respiratory Rate: 16 bpm Weight: 157 lbs 8 oz 07/07/2011 Blood Pressure 1: 170/76 Code : 8480-6 BMI: 26.9 Code : 92204-1 Heart Rate 1 : 52 bpm Height: 5'4" Respiratory Rate: 16 bpm Weight: 157 lbs 8 oz 06/16/2011 Blood Pressure 1: 158/70 Code : 8480-6 Heart Rate 1: 56 bpm Respiratory Rate : 16 bpm Weight: 161 lbs 8 oz 02/17/2011 Blood Pressure 1: 170/76 Code : 8480-6 BMI: 27.2 Code : 01830-6 Heart Rate 1 : 70 bpm Height: 5'6" Respiratory Rate: 16 bpm Weight: 166 lbs 01/08/2011 Blood Pressure 1: 163/77 Code : 8480-6 BMI: 27.0 Code : 64007-2 Heart Rate 1 : 66 bpm Height: 5'6" Weight: 166 lbs Functional Status No Functional Status data History of Present Illness Symptom Name Status Result Effective Date Notes fatigue Onset and Resolution ongoing 02/01/2018 None fatigue Onset of Symptom 1+ months ago 02/01/2018 None fatigue Triggers no known associated factors 02/01/2018 None fatigue Quality acute 02/01/2018 None fatigue Quality worsening 02/01/2018 None fatigue Frequency of Episodes increasing 02/01/2018 None hypertension Quality chronic 11/24/2017 None hypertension Quality primary hypertension 11/24/2017 None hypertension Onset and Resolution ongoing 11/24/2017 None hypertension Onset of Symptom during adulthood 11/24/2017 None hypertension Blood Pressure Values patient checking blood pressure at home - did not bring in readings 11/24/2017 None hypertension Severity mild 11/24/2017 None hypertension Significant Family History heart disease 11/24/2017 None hypertension Significant Family History hypertension 11/24/2017 None hypertension Alleviating Factors medication 11/24/2017 None hypertension Exacerbating Factors stress 11/24/2017 None hypertension Pertinent Findings Denies anxiety 11/24/2017 None hypertension Pertinent Findings Denies decreased energy 11/24/2017 None hypertension Pertinent Findings Denies dizziness 11/24/2017 None hypertension Pertinent Findings Denies dyspnea 11/24/2017 None hypertension Pertinent Findings Denies edema 11/24/2017 -wears compression stockings hypertension Pertinent Findings palpitations 11/24/2017 None hypertension Pertinent Findings tachycardia 11/24/2017 None Annual Medicare Wellness Exam Alcohol Use does not drink any alcohol 09/08/2017 None Annual Medicare Wellness Exam Aspirin Use no 09/08/2017 None Annual Medicare Wellness Exam Blood Glucose (self reported) don't know 09/08/2017 None Annual Medicare Wellness Exam Blood Pressure (self reported ) high (140/90 or higher) 09/08/2017 None Annual Medicare Wellness Exam Cholesterol (self reported) don't know 09/08/2017 None Annual Medicare Wellness Exam Hemaglobin A-1C (self reported ) don't know 09/08/2017 None Annual Medicare Wellness Exam Depression (last 6 months) some of the time 09/08/2017 None Annual Medicare Wellness Exam Depression or Hopelessness almost never 09/08/2017 None Annual Medicare Wellness Exam Describe Your Health fair 09/08/2017 None Annual Medicare Wellness Exam Exercise Habits exercises 30 minutes per day 09/08/2017 None Annual Medicare Wellness Exam Exercise Habits exercises 7 days per week 09/08/2017 None Annual Medicare Wellness Exam Handling Stress usually [place] effectively 09/08/2017 None Annual Medicare Wellness Exam Hours of Sleep 8-9 09/08/2017 None Annual Medicare Wellness Exam Interaction with Friends no 09/08/2017 None Annual Medicare Wellness Exam Interests & Pleasure some of the time 09/08/2017 None Annual Medicare Wellness Exam Life Satisfaction satisfied 09/08/2017 None Annual Medicare Wellness Exam Motor Vehicle Safety always fastens seat belt: yes 09/08/2017 None Annual Medicare Wellness Exam Motor Vehicle Safety drives after drinking: no 09/08/2017 None Annual Medicare Wellness Exam Motor Vehicle Safety rides with someone who has been drinking: no 09/08 None Annual Medicare Wellness Exam Nutrition servings of fried food / high fat foods per day: 0 2017 None Annual Medicare Wellness Exam Nutrition servings of high fiber / whole grain per day: 1 09/08/2017 None Annual Medicare Wellness Exam Nutrition servings of vegetables / fruit per day: 1 09/08/2017 None Annual Medicare Wellness Exam Smoking and Tobacco Use non smoker 09/08/2017 None Annual Medicare Wellness Exam Social & Emotional Support usually 09/08/2017 None Annual Medicare Wellness Exam Stress almost never 09/08/2017 None Annual Medicare Wellness Exam Sun Exposure protects skin when outdoors: yes 09/08/2017 None Hospital Follow Up _ Other: wrist fracture, diarrhea 08/25/2017 None Hospital Follow Up Quality acute 08/25/2017 None Hospital Follow Up Quality improving 08/25/2017 None hypertension Quality chronic 08/25/2017 None hypertension Quality primary hypertension 08/25/2017 None hypertension Onset and Resolution ongoing 08/25/2017 None hypertension Onset of Symptom during adulthood 08/25/2017 None hypertension Blood Pressure Values patient checking blood pressure at home - did not bring in readings 08/25/2017 None hypertension Severity mild 08/25/2017 None hypertension Significant Family History heart disease 08/25/2017 None hypertension Significant Family History hypertension 08/25/2017 None hypertension Alleviating Factors medication 08/25/2017 None hypertension Exacerbating Factors stress 08/25/2017 None hypertension Pertinent Findings Denies anxiety 08/25/2017 None hypertension Pertinent Findings Denies decreased energy 08/25/2017 None hypertension Pertinent Findings Denies dizziness 08/25/2017 None hypertension Pertinent Findings Denies dyspnea 08/25/2017 None hypertension Pertinent Findings Denies edema 08/25/2017 -wears compression stockings hypertension Pertinent Findings palpitations 08/25/2017 None hypertension Pertinent Findings tachycardia 08/25/2017 None palpitations Quality acute 08/25/2017 None palpitations Quality awareness of heartbeat 08/25/2017 None palpitations Quality extra beats 08/25/2017 None palpitations Quality irregular beats 08/25/2017 None palpitations Quality rapid and regular beats 08/25/2017 None palpitations Quality skipped beats 08/25/2017 None palpitations Onset and Resolution sudden in onset 08/25/2017 None palpitations Onset of Symptom 1 days ago 08/25/2017 None palpitations Limitation on Activities does not limit activities 08/25/2017 None palpitations Triggers no known associated factors 08/25/2017 None palpitations Alleviating Factors rest 08/25/2017 None palpitations Exacerbating Factors activity 08/25/2017 None palpitations Pertinent Findings Denies back pain 08/25/2017 None palpitations Pertinent Findings Denies confusion 08/25/2017 None palpitations Pertinent Findings Denies dyspnea 08/25/2017 None palpitations Pertinent Findings Denies lightheadedness 08/25/2017 None palpitations Pertinent Findings Denies sense of impending doom 08/25/2017 None palpitations Pertinent Findings Denies syncope 08/25/2017 None palpitations Pertinent Findings tachycardia 08/25/2017 None palpitations Pertinent Findings Denies tachypnea 08/25/2017 None palpitations Pertinent Findings Denies weakness 08/25/2017 None lower leg pain Location on the left 07/28/2017 None lower leg pain Location on the right 07/28/2017 None lower leg pain Location in the calf region 07/28/2017 None lower leg pain Quality aching pain 07/28/2017 None lower leg pain Timing of Episodes at night 07/28/2017 None lower leg pain Onset and Resolution gradual in onset 07/28/2017 None lower leg pain Onset of Symptom 1 months ago 07/28/2017 None lower leg pain Frequency of Episodes daily 07/28/2017 None back pain Location in the right upper back area 06/11/2017 None back pain Quality acute 06/11/2017 None back pain Onset and Resolution sudden in onset 06/11/2017 None back pain Onset and Resolution ongoing 06/11/2017 None back pain Quality intermittent 06/11/2017 None back pain Onset of Symptom 1 weeks ago 06/11/2017 None back pain Frequency of Episodes daily 06/11/2017 None back pain Triggers no known associated factors 06/11/2017 None foot pain Location on the left 06/11/2017 great toe foot pain Quality acute 06/11/2017 None foot pain Quality intermittent 06/11/2017 None foot pain Onset and Resolution sudden in onset 06/11/2017 None foot pain Onset of Symptom 1 weeks ago 06/11/2017 None foot pain Mechanism of injury unknown 06/11/2017 None foot pain Pertinent Findings swelling 06/11/2017 None foot pain Pertinent Findings pain with movement 06/11/2017 None sore throat Location diffusely 05/05/2017 None sore [...] pain Onset of Symptom _ months ago 12/13/2014May back pain Location lumbar-sacral spine 12/13/2014 reports [...] Directive data Encounters Encounter Performer Location Codes ([id number]) 42346 EST. PATIENT, LEVEL III Diagnosis: Essential (primary) hypertension[ICD10: I10] Jena Blas MD, [facility] CPT-4: 15468 02/01/2018 ([id number]) 63808 EST. PATIENT, LEVEL IV Diagnosis: Atrophy of thyroid (acquired)[ICD10: E03.4] Diagnosis: Essential (primary) hypertension[ICD10: I10] Jena Blas MD, [facility] CPT-4: 71241 11/24/2017 ([id number]) 60679 EST. 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 PATIENT, LEVEL III Diagnosis: Cough[ICD10: R05] Diagnosis: Acute laryngopharyngitis[ICD10: J06.0] Jena Blas MD, [facility] CPT-4: 16106 05/05/2017 ([id number]) 47909 EST. PATIENT, LEVEL III Diagnosis: Essential (primary) hypertension[ICD10: I10] Diagnosis: Atrophy of thyroid (acquired)[ICD10: E03.4] Jena Blas MD, [facility] CPT-4: 57669 04/21/2017 ([id number]) 84897 EST. PATIENT, LEVEL III Diagnosis: Essential (primary) hypertension[ICD10: I10] Jena Blas MD [facility] CPT-4: 96708 03/31/2017 ([id number]) 36251 EST. 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 PATIENT, LEVEL III Diagnosis: Atrophy of thyroid (acquired)[ICD10: E03.4] Diagnosis: Chronic kidney disease, stage 4 (severe)[ICD10: N18.4] Jena Blas MD [facility] CPT-4: 78326 12/16/2016 ([id number]) 25808 EST. 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 PATIENT, LEVEL IV Diagnosis: Localized edema[ICD10: R60.0] Tierney Blas MD [facility] CPT-4 : 53907 09/22/2016 ([id number]) 80523 EST. PATIENT, LEVEL IV Diagnosis: Essential (primary) hypertension[ICD10: I10] Diagnosis: Atrophy of thyroid (acquired)[ICD10: E03.4] Jena Blas MD [facility] CPT-4: 85074 07/29/2016 ([id number]) 76124 EST. PATIENT, LEVEL IV Diagnosis: Essential (primary) hypertension[ICD10: I10] Diagnosis: Chronic kidney disease, stage 3 (moderate)[ICD10: N18.3] Diagnosis: Localized edema[ICD10: R60.0] Jena Blas MD, [facility] CPT- 4: 04234 06/03/2016 ([id number]) 66799 EST. PATIENT, LEVEL III Diagnosis: Essential (primary) hypertension[ICD10: I10] Diagnosis: Encounter for immunization[ICD10: Z23] Diagnosis: Low back pain[ICD10: M54.5] Jena Blas MD, [facility] CPT- 4: 19265 02/13/2016 ([id number]) 55849 EST. PATIENT, LEVEL III Diagnosis: Hypothyroidism, unspecified[ICD10: E03.9] Diagnosis: Essential (primary) hypertension[ICD10: I10] Diagnosis: Low back pain[ICD10: M54.5] Jena Blas MD, [facility] CPT- 4: 29701 10/17/2015 ([id number]) 00816 EST. PATIENT, LEVEL IV Diagnosis: Essential (primary) hypertension[ICD10: I10] Diagnosis: Hypothyroidism, unspecified[ICD10: E03.9] Diagnosis: Other abnormal glucose[ICD10: R73.09] Jena Blas MD, [facility] CPT-4: 35159 07/11/2015 ([id number]) 09421 EST. PATIENT, LEVEL III Diagnosis: Acute recurrent maxillary sinusitis[ICD10: J01.01] Diagnosis: Cough[ICD10: R05] Louisa Blas MD, [facility] CPT-4: 23486 06/29/2015 74429 EST. PATIENT, LEVEL IV Diagnosis: Pain in left knee[ICD10: M25.562] Diagnosis: Pain in left leg[ICD10: M79.605] Tierney Blas MD, [facility] CPT- 4: 53621 04/02/2015 ([id number]) 47450 EST. PATIENT, LEVEL IV Diagnosis: Cervicalgia[ICD10: M54.2] Diagnosis: Spinal stenosis, lumbar region[ICD10: M48.06] Jena Blas MD, [facility] CPT-4: 67250 03/22/2015 37390 EST. 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 PATIENT, LEVEL IV Diagnosis: ESSENTIAL HYPERTENSION[ICD9: 401.9] Diagnosis: Cervicalgia[ICD9: 723.1] Diagnosis: LUMBAGO[ICD9: 724.2] Diagnosis: DEPRESSIVE DISORDER NEC[ICD9: 311] Jena Blas MD [facility] CPT-4: 31825 12/13/2014 ([id number]) 64251 EST. PATIENT, LEVEL III Diagnosis: Neck pain[ICD9: 723.1] Jena Blas MD [facility] CPT-4: 67192 09/05/2014 ([id number]) 62606 EST. PATIENT, LEVEL IV Diagnosis: ESSENTIAL HYPERTENSION[ICD9: 401.9] Diagnosis: Neck pain[ICD9: 723.1] Diagnosis: Trigger point of left shoulder region[ICD9: 719.41] Jena Blas MD [facility] CPT-4: 45800 08/22/2014 ([id number]) 17976 EST. PATIENT, LEVEL IV Diagnosis: ESSENTIAL HYPERTENSION[ICD9: 401.9] Diagnosis: Cervicalgia[ICD9: 723.1] Diagnosis: LUMBAGO[ICD9: 724.2] Diagnosis: DEPRESSIVE DISORDER NEC[ICD9: 311] Jena Blas MD [facility] CPT-4: 15371 05/30/2014 ([id number]) 11251 EST. PATIENT, LEVEL III Diagnosis: ESSENTIAL HYPERTENSION[ICD9: 401.9] Diagnosis: Arthralgia[ICD9: 719.40] Jena Blas MD [facility] CPT-4: 73851 03/02/2014 ([id number]) 99512 EST. PATIENT, LEVEL IV Diagnosis: ESSENTIAL HYPERTENSION[ICD9: 401.9] Diagnosis: HYPOTHYROIDISM[ICD9: 244.9] Jena Blas MD [facility] CPT- 4: 71053 11/15/2013 ([id number]) 53653 EST. PATIENT, LEVEL III Diagnosis: ESSENTIAL HYPERTENSION[SNOMED: 52463589] Diagnosis: GROSS HEMATURIA[ICD9: 599.71] Diagnosis: LUMBAGO[ICD9: 724.2] Jena Blas MD [facility] CPT-4: 80803 09/13/2013 ([id number]) 31829 EST. PATIENT, LEVEL III Diagnosis: DYSURIA[ICD9: 788.1] Diagnosis: Gross hematuria[ICD9: 599.71] Jena Blas MD [facility] CPT- 4: 34366 08/31/2013 24018 EST. PATIENT, LEVEL II Diagnosis: Incisional pain[ICD9: 782.0] Jena Blas MD [facility] CPT- 4: 43651 06/29/2013 ([id number]) 80333 EST. PATIENT, LEVEL III Diagnosis: ESSENTIAL HYPERTENSION[SNOMED: 16959555] Jena Blas MD [facility] CPT-4: 59809 06/15/2013 ([id number]) 60259 EST. PATIENT, LEVEL III Diagnosis: ESSENTIAL HYPERTENSION[SNOMED: 30609507] Jena Blas MD [facility] CPT-4: 39382 05/25/2013 ([id number]) 00922 EST. 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 PATIENT, LEVEL III Diagnosis: Cervicalgia[ICD9: 723.1] Jena Blas MD [facility] CPT-4: 01066 02/02/2013 ([id number]) 91136 EST. PATIENT, LEVEL IV Diagnosis: HYPOTHYROIDISM[ICD9: 244.9] Diagnosis: Back pain[ICD9: 724.5] Diagnosis: History of UTI[ICD9: V13.02] Jena Blas MD [facility] CPT- 4: 98451 10/07/2012 ([id number]) 78289 EST. PATIENT, LEVEL III Diagnosis: ESSENTIAL HYPERTENSION[SNOMED: 70809949] Jena Blas MD [facility] CPT-4: 73477 08/18/2012 ([id number]) 40900 EST. PATIENT, LEVEL III Diagnosis: ESSENTIAL HYPERTENSION[SNOMED: 15078776] Jena Blas MD [facility] CPT-4: 77883 07/14/2012 ([id number]) 66951 EST. PATIENT, LEVEL IV Diagnosis: ESSENTIAL HYPERTENSION[SNOMED: 18566675] Diagnosis: Stage III chronic kidney disease[ICD9: 585.3] Jena Blas MD [facility] CPT-4: 85440 06/23/2012 43374 EST. PATIENT, LEVEL IV Diagnosis: ESSENTIAL HYPERTENSION[SNOMED: 34138412] Jena Blas MD [facility] CPT-4: 68535 02/19/2012 ([id number]) 93547 EST. PATIENT, LEVEL IV Diagnosis: ESSENTIAL HYPERTENSION[SNOMED: 63069465] Diagnosis: BACKACHE[ICD9: 724.5] Diagnosis: NONUNION OF FRACTURE[ICD9: 733.82] Jena Blas MD [facility] CPT-4: 53212 08/05/2011 ([id number]) 53880 EST. 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 PATIENT, LEVEL IV Diagnosis: Back pain[ICD9: 724.5] Diagnosis: Knee pain, right[ICD9: 719.46] Diagnosis: Thrush, oral[ICD9: 112.0] Louisa Blas MD, [facility] CPT-4: 62188 06/16/2011 61611 EST. PATIENT, LEVEL IV Diagnosis: ESSENTIAL HYPERTENSION[SNOMED: 35795848] Diagnosis: VAC STREP PNEUMONIAE-FLU[ICD9: V06.6] [facility] CPT-4: 10558 02/17/2011 76858 EST. PATIENT, LEVEL III Diagnosis: Conjunctivitis[ICD9: 372.30] [facility] CPT-4: 20528 01/08/2011 Plan of Care Planned Activity Notes Codes Status Date Visit Plan: Hypertension - well controlled - continue with current medications, continue with no added salt diet. Pt has been encouraged to exercise daily. The pt has been advised to call the office if there are any acute concerns about change in blood pressure readings at home. check your blood pressure every morning before taking your CARVEDILOL and: if your blood pressure is 140 to 120 take 1/2 of the carvedilol if your blood pressure is 120 or lower do NOT take the carvedilol that morning. high dose flu shot given in clinic today due to advanced age and multiple co-morbid conditions. 02/01/2018 App[facility]ment[phone] [facility] (15 min) Moderate 02/01/2018 Patient Education: Patient Medication Summary Completed 02/01/2018 Appointment: Lab Draw 01/05/2018 Patient Education: Patient Medication Summary Completed 01/05/2018 Visit Plan: Hypertension - well controlled - [...] months based on previous levels of control. 11/24/2017 Appointment: [phone] [facility] (15 min) Moderate 11/24/2017 Patient Education: Patient Medication Summary Completed 11/24/2017 Visit Plan: Medicare Exam - today we discussed the patients past history, immunizations, preventative exams/evaluations - colonoscopy, fecal occult blood testing, routine labs for renal function, glucose, cholesterol, osteoporosis evaluations, cardiovascular testing and cancer screenings. We have also discussed mental health and the signs/symptoms of depression. The patient was advised of home safety evaluations and the need to make sure that as the aging process continues, we need to be aware of different ways to make the home a safer place to reside. The patient has also been counseled that exercise is necessary - and of utmost importance as we age to help decrease fall risk and to maintain independence in the home. Today we discussed the need for the patient to create paperwork for Advanced directives as well as for the patient to provide this office with a copy of her DOPA paperwork for health care surrogate. 09/08/2017 Patient Education: Patient Medication Summary Completed 09/08/2017 Visit Plan: Hypothyroidism - pt with chronic hypothyroidism , continue with current medication, will monitor pt to signs or symptoms of lack of adequate supplementation. Pt is to continue with current dose of medication unless directed otherwise. Check labs at regular intervals wither q 3 months or q 6 months based on previous levels of control. Knee pain - due to gout - discussed gout diet and restriction with patient - continue with allopurinol. 08/25/2017 Appointment: Jena Blas WPtel: [facility] [place] (15 min) Moderate 08/25/2017 Patient Education: Patient Medication Summary Completed 08/25/2017 Visit Plan: Leg pain bilateral lower legs - recommended patient to stretch lower legs - restart the gout medication - call if symptoms are not improving. 07/28/2017 Appointment: J[facility] Bl[facility]Ptel[facility] [place] (15 min) Moderate 07/28/2017 Patient Education: Patient Medication Summary Completed 07/28/2017 Appointment: [phone] [place] (15 min) Moderate 07/21/2017 Visit Plan: Back pain- the patient was instructed in appropriate posture. The pt is to use prn antiinflammatories to manage acute pain. The patient is to call the office if the pain is worsening or does not improve. Gout Attack - pt given RX for uric Acid Level, and rx for medication for treatment of symptoms. Pt to call if symptoms do not improve, and pt to be given results of labs when available. 06/11/2017 Appointment: Tierney Andrade WPtel: [phone] [facility] (15 min) Moderate 06/11/2017 Patient Education: Patient Medication Summary Completed 06/11/2017 Visit Plan: URI - Pt advised to increase fluids, vitamin C. Discussed natural and expected course of this diagnosis and need to alert me if symptoms do not follow expected course, or if any worse. RX for cough medication given to patient. 05/05/2017 Appointment: Jena Blas [facility]Ptel[facility] [address] [facility] (15 min) Moderate 05/05/2017 Patient Education: Patient [...] of control. 04/21/2017 Appointment: Jena Blas WPtel: [phone] [facility] (15 min) Moderate 04/21/2017 Patient Education: Patient Medication Summary Completed 04/21/2017 Visit Plan: Hypertension - well controlled - continue with current medications, continue with no added salt diet. Pt has been encouraged to exercise daily. The pt has been advised to call the office if there are any acute concerns about change in blood pressure readings at home. 03/31/2017 Appointment: Jena Blas WPtel: [phone] [facility] [place] (15 min) Moderate 03/31/2017 Patient Education: Patient Medication Summary Completed 03/31/2017 Appointment: Jena Blas WPtel: [phone] [facility] [place] (30 min) Complex 03/17/2017 Visit Plan: Hypertension - for this patient her blood pressure is well controlled - continue with current medications, continue with no added salt diet. Pt has been encouraged to exercise daily. The pt has been advised to call the office if there are any acute concerns about change in blood pressure readings at home. Nocturnal hypoxemia - via [facility] to do an overnight oxygen Right ulnar fracture - continue with supportive care. 03/02/2017 Appointment: Jena Blas WPtel: [phone] [facility] (15 min) Moderate 03/02/2017 Patient Education: Patient [...] German 12/16/2016 Appointment: Jena Blas WPtel: [phone] [facility] (15 min) Moderate 12/16/2016 Patient Education: Patient [...] worsen. 11/18/2016 Appointment: [facility]ena [facility]Ptel[facility] [phone] [facility] (15 min) Moderate 11/18/2016 Patient Education: Patient [...] peripheral edema. 09/22/2016 Appointment: Tierney Andrade WPtel: [facility] (15 min) Moderate 09/22/2016 Patient Education: Patient [...] of control. 07/29/2016 Appointment: Jena Blas WPtel: [address] [facility] (15 min) Moderate 07/29/2016 Patient Education: Patient Medication Summary Completed 07/29/2016 Appointment: Jena Blas WPtel: [facility] (15 min) Moderate 06/18/2016 Visit Plan: Hypertension [...] support stockings. 06/03/2016 Appointment: Jena Blas WPtel: [address] [facility] (15 min) Moderate 06/03/2016 Patient Education: Patient Medication Summary Completed 06/03/2016 Appointment: [facility]Ptel[facility] [phone] [facility] (15 min) Moderate 05/28/2016 Visit Plan: Hypertension [...] use. 02/13/2016 Appointment: Jena Blas WPtel: [phone] [facility] (15 min) Moderate 02/13/2016 Patient Education: Patient [...] not improving. 10/17/2015 Appointment: Jena Blas WPtel: [facility] (15 min) Moderate 10/17/2015 Patient Education: Patient [...] DAILY 06/29/2015 Appointment: Louisa Weaver [facility]el[phone] [facility] [place] (10 min) Simple 06/29/2015 Patient Education: Patient Medication Summary Completed 06/29/2015 Appointment: Jena Blas [facility]Ptel[facility] [phone] [facility] [place] (15 min) Moderate 06/27/2015 Referral: Dr. [...] 03/22/2015 Care Plan: Referral Order SNOMED-CT : [id number] Ordered 03/22/2015 Appointment: Jena Blas WPtel: [facility] [place] (15 min) Moderate 03/14/2015 Visit Plan: [...] current medications. 12/13/2014 Appointment: Jena Blas WPtel: [phone] [facility] [place] (15 min) Moderate 12/13/2014 Patient Education: Patient Medication Summary Completed 12/13/2014 Appointment: [facility]ena Blas WPtel: [phone] [facility] [place] Follow up 11/07/2014 Visit Plan: Neck [...] attempt to improve the facet arthropathy. EVA [id number] EXP 201508/22/2014 Appointment: Jena Blas WPtel[facility] [phone] [facility] [place] Follow up 08/22/2014 Patient Education: Patient Medication Summary Completed 08/22/2014 Patient Education: Hypertension Completed 08/22/2014 Patient Education: .Cervicalgia Neck Pain Completed 08/22/2014 Appointment: Jena Blas WPtel[facility] [phone] [facility] Follow up 06/28/2014 Visit Plan: Hypertension - [...] current medications. 05/30/2014 Appointment: Jena Blas WPtel: [address] [facility] [place] Follow up 05/30/2014 Patient Education: Patient Medication [...] well. 03/02/2014 Appointment: Jena Blas [facility]Ptel: [phone] [facility] Follow up 03/02/2014 Patient Education: Patient Medication [...] on previous levels of control. 11/15/2013 Appointment: Jean Blas WPtel: [phone] [facility] Follow up 11/15/2013 Patient Education: Patient Medication [...] pain. 09/13/2013 Appointment: Jena Blas WPtel: [phone] [facility] [place] Follow up 09/13/2013 Patient Education: Patient Medication Summary Completed 09/13/2013 Patient Education: Hypertension Completed 09/13/2013 Appointment: Louisa Weaver [facility]Ptel: [phone] [phone] Injection 09/02/2013 Patient Education: Patient Medication Summary Completed 09/02/2013 Patient Education: Patient Medication Summary Completed 09/01/2013 Visit Plan: Gross Hematuria - pt has been on ciprofloxacin for several days - she has not checked her INR on her home INR machine. I will send her for stat labs - chemistry, cbc, INR 08/31/2013 Appointment: Jena Blas WPtel: [phone] [facility] [place] Lab Draw 08/31/2013 Patient Education: Patient Medication Summary Completed 08/31/2013 Appointment: Louisa Weaver [facility]Ptel: [phone] [facility] [place] Lab Draw 08/23/2013 Patient Education: Patient Medication Summary Completed 08/23/2013 Visit Plan: Healing pacemaker site - pt to call if the incision appears to be worsening, or more erythematous or more painful. No acute treatment needed at this time. 06/29/2013 Appointment: Jena Blas WPtel: [facility] Other 06/29/2013 Patient Education: Patient Medication Summary Completed 06/29/2013 Visit Plan: Hypertension - well controlled - continue with current medications, continue with no added salt diet. Pt has been encouraged to exercise daily. The pt has been advised to call the office if there are any acute concerns about change in blood pressure readings at home. 06/15/2013 Appointment: Jena Blas WPtel: [facility] Follow up 06/15/2013 Patient Education: Patient Medication Summary Completed 06/15/2013 Patient Education: Hypertension Completed 06/15/2013 Appointment: Jena Blas WPtel: [facility] Follow up 06/09/2013 Visit Plan: Hypertension - well controlled - continue with current medications, continue with no added salt diet. Pt has been encouraged to exercise daily. The pt has been advised to call the office if there are any acute concerns about change in blood pressure readings at home. 05/25/2013 Appointment: Jena Blas WPtel: [facility] [facility] follow up 05/25/2013 Patient Education: Patient Medication Summary Completed 05/25/2013 Patient Education: Hypertension Completed 05/25/2013 Appointment: Jena Blas WPtel: [phone] [facility] Follow up 05/18/2013 Appointment: Jena Blas WPtel: [facility] Follow up 05/05/2013 Appointment: Louisa Weaver WPtel: [phone] Lab Draw 03/04/2013 Patient Education: Patient Medication Summary Completed 03/04/2013 Visit Plan: Salivary gland infection - resolved - pt to finish off antibiotics, call if symptoms return. 03/03/2013 Appointment: Jena Blas WPtel: [facility] Follow up 03/03/2013 Patient Education: Patient Medication Summary Completed 03/03/2013 Appointment: Jena Blas WPtel: [address] [place], [place] [phone] Follow up 03/01/2013 Visit Plan: ADMIT FROM [...] to be orderd upon admission. 02/16/2013 Appointment: Jena Blas WPtel: [facility] [place] Sick 02/16/2013 Patient Education: Patient Medication Summary [...] shot today 02/02/2013 Appointment: Jena Blas WPtel: [address] [place], [place] [phone] [place] Other 02/02/2013 Patient Education: Patient Medication Summary Completed 02/02/2013 Patient Education: .Cervicalgia Neck Pain Completed 02/02/2013 Appointment: Jena Blas WPtel: [address] [place], [place] [phone] Follow up 10/13/2012 Visit Plan: Diffuse body [...] neurologic decline. 10/07/2012 Appointment: Jena Blas WPtel: [facility] Follow up 10/07/2012 Patient Education: Patient Medication Summary Completed 10/07/2012 Appointment: Jena Blas WPtel: [address] [place], [place] [phone] [place] Lab Draw 09/21/2012 Patient Education: Patient Medication Summary Completed 09/21/2012 Visit Plan: Hypertension - well controlled - continue with current medications, continue with no added salt diet. Pt has been encouraged to exercise daily. The pt has been advised to call the office if there are any acute concerns about change in blood pressure readings at home. 08/18/2012 Appointment: Jena Blas WPtel: [address] [place] [address] Follow up 08/18/2012 Patient Education: Patient Medication [...] above 200/100. 07/14/2012 Appointment: Jena Blas WPtel: [address] [place] [phone] Follow up 07/14/2012 Patient Education: Patient Medication [...] few months. 06/23/2012 Appointment: Jena Blas WPtel: [facility] Follow [facility] 06/23/2012 Patient Education: Patient Medication Summary Completed 06/23/2012 Patient Education: Hypertension Completed 06/23/2012 Appointment: Jena Blas WPtel: [address] [place] [address] [facility] 03/18/2012 Appointment: Jena Blas WPtel: [address] [place] [address] Lab Draw 02/23/2012 Patient Education: Patient Medication [...] pressure readings at home. Anticoagulation monitored by director of software development. 02/19/2012 Appointment: Jena Blas WPtel: [address] [place] [phone] Established Patient Preventative visit 02/19/2012 Patient Education: Patient Medication Summary Completed 02/19/2012 Patient Education: High Blood Pressure: Essential Hypertension Completed 2011 Appointment: Jena Blas WPtel: [address] [place] [phone] Other 08/18/2011 Visit Plan: Thoracic compression fracture [...] pain control 08/05/2011 Appointment: Jena Blas WPtel: [address] [place] [phone] Other 08/05/2011 Patient Education: Patient Medication Summary Completed 08/05/2011 Patient Education: High Blood Pressure: Essential Hypertension Completed 2011 Appointment: Jena Blas WPtel: [address] [place] [phone] Other 08/04/2011 Appointment: Jena Blas WPtel: [address] [place] [phone] [place] Other 07/28/2011 Visit Plan: Hypertension - uncontrolled [...] her pain. 07/07/2011 Appointment: Jena Blas WPtel: [address] [place] [address] Other 07/07/2011 Patient Education: Patient Medication Summary Completed 07/07/2011 Patient Education: High Blood Pressure: Essential Hypertension Completed 2011 Appointment: Jena Blas WPtel: [address] [place] [phone] Other 06/26/2011 Appointment: Louisa Weaver WPtel: [address] [place], [place] [phone] Other 06/23/2011 Visit Plan: Back pain-xray suggestive of possible T12 compression fracture-CT scheduled for additional diagnostic testing. Continue with hydrocodone as needed for pain. Right knee [id number] fall-plan to xray right knee to evaluate for acute abnormality. Jackie-discussed natural and expectecd course of this diagnosis and to alert me if symptoms do not follow expected course, or if any worse. Plan for nystatin swish and swallow. 06/16/2011 Appointment: Louisa Weaver WPtel: [address] [place] [phone] [place] Other 06/16/2011 Patient Education: Patient Medication Summary Completed 06/16/2011 Appointment: Louisa Weaver WPtel: [address] [place], [place] [phone] Other 06/11/2011 Visit Plan: Hypertension - well [...] mammogram and dexa scan. Anticoagulation monitored by director of software development. 02/17/2011 Appointment: [facility]ena Blas [facility]Ptel: [phone] [facility] [place] 02/17/2011 Patient Education: Patient Medication Summary Completed 02/17/2011 Visit Plan: Conjunctivitis-Discussed natural and expected course of this diagnosis and need to alert me if symtpoms do not follow expected course, or if any worse. Recommended warm moist compresses as needed for pain. Tylenol/motrin as needed for fever/discomfort. 01/08/2011 Appointment: Louisa Weaver [facility]Ptel: [phone] [place] Other 01/08/2011 Patient Education: Patient Medication Summary Completed 01/08/2011 Referral: Dr. Cali Stauffer WPtel: Referral Appointment Requested Instructions Comment . URI - Pt advised to increase fluids, vitamin C. Discussed natural and expected course of this diagnosis and need to alert me if symptoms do not follow expected course, or if any worse. RX for cough medication given to patient. Multiple Myeloma - the possible diagnosis that you are going to Dr. Silas Kaur at [facility] for - she will want to do more testing - possibly a bone marrow biopsy . Hypertension - well controlled - continue [...] months based on previous levels of control. FLONASE 1 SPRAY EACH NARE DAILY . Sinusitis - Pt has acute infection - pain in face, maxillary region, Pt informed to use decongestant, RX given to patient, sinus rinses also recommended. Call if symptoms do not show improvement. STOP Z-PACK START LEVAQUIN 500 MG X1 DAY THEN 250 MG X6 DAYS KENALOG 40 MG IM FLONASE 1 SPRAY EACH NARE DAILY . Conjunctivitis-Discussed natural and expected course of this diagnosis and need to alert me if symtpoms do not follow expected course, or if any worse. Recommended warm moist compresses as needed for pain. Tylenol/ motrin as needed for fever/discomfort. . HTN - based on Silvana's home [...] based on previous levels of control. . Medicare Exam - today we discussed the patients past history, immunizations, preventative exams/evaluations - colonoscopy, fecal occult blood testing, routine labs for renal function, glucose, cholesterol, osteoporosis evaluations, cardiovascular testing and cancer screenings. We have also discussed mental health and the signs/symptoms of depression. The patient was advised of home safety evaluations and the need to make sure that as the aging process continues, we need to be aware of different ways to make the home a safer place to reside. The patient has also been counseled that exercise is necessary - and of utmost importance as we age to help decrease fall risk and to maintain independence in the home. Today we discussed the need for the patient to create paperwork for Advanced directives as well as for the patient to provide this office with a copy of her DOPA paperwork for health care surrogate. repeat thyroid labs in two months.. Hypertension [...] exposure. No change in current medications. . Hypertension - uncontrolled -no change to [...] attempt to improve the facet arthropathy. . Hypertension - uncontrolled -no change to [...] to attempt to improve the facet arthropathy. KENALOG [id number] EXP 02-02-2016 [employer] - robotic vacuum . Hypothyroidism - pt with chronic hypothyroidism, continue with current medication, will monitor pt to signs or symptoms of lack of adequate supplementation. Pt is to continue with current dose of medication unless directed otherwise. Check labs at regular intervals wither q 3 months or q 6 months based on previous levels of control. Knee pain - due to gout - discussed gout diet and restriction with patient - continue with allopurinol. . Salivary gland infection - resolved - [...] health problems and his neurologic decline. . Healing pacemaker site - pt to call if the incision appears to be worsening, or more erythematous or more painful. No acute treatment needed at this time. pt to use heat to neck and [...] exposure. No change in current medications. . Hypertension - well controlled per her [...] Dr. Dana German and Dr. Warren German . Hypertension - for this patient her blood pressure is well controlled - continue with current medications, continue with no added salt diet. Pt has been encouraged to exercise daily. The pt has been advised to call the office if there are any acute concerns about change in blood pressure readings at home. Nocturnal hypoxemia - via [facility] to do an overnight oxygen Right ulnar fracture - continue with supportive care. . Leg pain bilateral lower legs - recommended patient to stretch lower legs - restart the gout medication - call if symptoms are not improving. . Hypertension - well controlled - continue with current medications, continue with no added salt diet. Pt has been encouraged to exercise daily. The pt has been advised to call the office if there are any acute concerns about change in blood pressure readings at home. Anticoagulation monitored by director of software development. Pt to try TIGERBALM on her knees [...] therapy and has been doing well. . Hypertension - well controlled - continue with current medications, continue with no added salt diet. Pt has been encouraged to exercise daily. The pt has been advised to call the office if there are any acute concerns about change in blood pressure readings at home. pt to use heat to neck and [...] exposure. No change in current medications. . Hypertension - well controlled - continue [...] further labs to be orderd upon admission. . Back pain- the patient was instructed in appropriate posture. The pt is to use prn antiinflammatories to manage acute pain. The patient is to call the office if the pain is worsening or does not improve. Gout Attack - pt given RX for uric Acid Level, and rx for medication for treatment of symptoms. Pt to call if symptoms do not improve, and pt to be given results of labs when available. pt is to cut her TEKTURNA IN [...] change in blood pressure readings at home. melatonin 3mg to take at bedtime to [...] hydrocodone as needed for pain. Right knee btuj-[id number]-ahzz fall-plan to xray right knee to evaluate for acute abnormality. Thursh-discussed natural and expectecd course of this diagnosis and to alert me if symptoms do not follow expected course, or if any worse. Plan for nystatin swish and swallow. check your blood pressure every morning before taking your CARVEDILOL and: if your blood pressure is 140 to 120 take 1/2 of the carvedilol if your blood pressure is 120 or lower do NOT take the carvedilol that morning.. Hypertension - well controlled - continue with current medications, continue with no added salt diet. Pt has been encouraged to exercise daily. The pt has been advised to call the office if there are any acute concerns about change in blood pressure readings at home. check your blood pressure every morning before taking your CARVEDILOL and: if your blood pressure is 140 to 120 take 1/2 of the carvedilol if your blood pressure is 120 or lower do NOT take the carvedilol that morning. high dose flu shot given in clinic today due to advanced age and multiple co- morbid conditions. . Cervicalgia and Lower Back pain - [...] change in blood pressure readings at home. PATIENT NEEDS TO INCREASE THE DILTIAZEM TO [...] mammogram and dexa scan. Anticoagulation monitored by director of software development. . Pt complains of left popliteal pain [...] Will get ultrasound of left leg. . Thoracic compression fracture - concern with [...] blood pressure improves with pain control . Hypertension - well controlled - continue [...]
--- OUTSIDE RECORDS SUMMARY | 2018-03-06 14:36 | XMS REPORT | Continuity of Care Document ---
Author Author [facility] Organization [facility] Address Unknown Phone Unavailable Allergies Active Description Code Type Severity Reaction Onset Reported/Identified Relationship to Patient Clinical Status Yes PCN Drug Allergy N/A N/A Yes SULFA Drug Allergy N/A N/A Yes Penicillins [id number] Drug Allergy Unknown N/A 06/19/2008 Yes Sulfa (Sulfonamide Antibiotics) [id number] Drug Allergy Unknown N/A 2008 Medications Medication [...] Ot V58.61 ANTICOAGULANTS,LT,CURRENT USE 03/05/2013 SHAZIA BECKER DIRECTOR SAFETY COUNCIL Ot 599.0 URIN TRACT INFECTION NOS 03/05/2013 SHAZIA BECKER DIRECTOR SAFETY COUNCIL Ot 789.09 ABDOMINAL PAIN, OTHER SPECIFIED SITE 05/17/2013 RAH BLAS MD Ot 244.9 HYPOTHYROIDISM NOS 05/17/2013 RAH BLAS MD Ot 272.4 HYPERLIPIDEMIA NEC/NOS 05/17/2013 RAH BLAS MD Ot 300.00 ANXIETY STATE NOS 05/17/2013 RAH BLAS MD Ot 403.90 HYPTNSV CHR KID DIS, UNSPEC, W CHR KD ST 05/17/2013 RAH BLAS MD Ot 414.01 CORONARY ATHEROSCLEROSIS OF [place] CORON 05/17/2013 RAH BLAS MD Ot 427.31 [...] FOR OCCUPATIONAL THERAPY 04/26/2015 J LUIS ANAYA DIRECTOR SAFETY COUNCIL Ot M79.605 04/26/2015 J LUIS ANAYA DIRECTOR SAFETY COUNCIL Ot R22.42 05/03/2015 J LUIS ANAYA DIRECTOR SAFETY COUNCIL Ot M79.605 05/03/2015 J LUIS ANAYA DIRECTOR SAFETY COUNCIL Ot R22.42 01/16/2016 Ot 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 01/16/2016 [...] 599.71 GROSS HEMATURIA 01/16/2016 J LUIS ANAYA DIRECTOR SAFETY COUNCIL Ot M79.605 PAIN IN LEFT LEG 01/16/2016 J LUIS ANAYA DIRECTOR SAFETY COUNCIL Ot R22.42 LOCALIZED SWELLING, MASS AND LUMP, [...] 599.71 GROSS HEMATURIA 02/13/2017 J LUIS ANAYA DIRECTOR SAFETY COUNCIL Ot M79.605 PAIN IN LEFT LEG 02/13/2017 J LUIS ANAYA DIRECTOR SAFETY COUNCIL Ot R22.42 LOCALIZED SWELLING, MASS AND LUMP, [...] RESUSCITATE 02/18/2017 RAH BLAS MD Ot Z79.82 DOCENT COORDINATOR (CURRENT) USE OF ASPIRIN 02/18/2017 RAH BLAS [...] RESUSCITATE 02/19/2017 RAH BLAS MD Ot Z79.82 HALFWAY (CURRENT) USE OF ASPIRIN 02/19/2017 RAH BLAS [...] RESUSCITATE 02/23/2017 RAH BLAS MD Ot Z79.82 DOCENT COORDINATOR (CURRENT) USE OF ASPIRIN 02/23/2017 RAH BLAS [...] M79.89 OTHER SPECIFIED SOFT TISSUE DISORDERS 04/04/2017 RHA BLAS MD, Ot N18.9 CHRONIC KIDNEY DISEASE, [...] EDEMA 06/01/2017 Phyllis SAEED MD Ot Z79.82 HALFWAY (CURRENT) USE OF ASPIRIN 06/01/2017 Phyllis SAEED MD Ot Z79.899 OTHER HALFWAY (CURRENT) DRUG THERAPY 06/01/2017 Phylils SAEED MD Ot 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 [...] EDEMA 06/19/2017 Phyllis SAEED MD Ot Z79.82 HALFWAY (CURRENT) USE OF ASPIRIN 06/19/2017 Phyllis SAEED MD Ot Z79.899 OTHER DOCENT COORDINATOR (CURRENT) DRUG THERAPY 06/19/2017 Phyllis SAEED MD [...] EDEMA 06/24/2017 Phyllis SAEED MD Ot Z79.82 DOCENT COORDINATOR (CURRENT) USE OF ASPIRIN 06/24/2017 Phyllis SAEED MD Ot Z79.899 OTHER DOCENT COORDINATOR (CURRENT) DRUG THERAPY 06/24/2017 Phyllis SAEED MD [...] EDEMA 11/26/2017 Phyllis SAEED MD Ot Z79.82 HALFWAY (CURRENT) USE OF ASPIRIN 11/26/2017 Phyllis SAEED MD Ot Z79.899 OTHER HALFWAY (CURRENT) DRUG THERAPY 11/26/2017 Phyllis SAEED MD [...] Ot I48.2 CHRONIC ATRIAL FIBRILLATION 12/07/2017 LIONEL BRAGA MD, Ot N28.9 DISORDER OF KIDNEY AND URETER, UNSPECIFI 12/07/2017 LIONEL BRAGA MD Ot Z79.01 DOCENT COORDINATOR (CURRENT) USE OF ANTICOAGULANT 12/07/2017 LIONEL BRAGA [...] SERUM, 12/22/2017 LIONEL BRAGA MD Ot Z79.01 HALFWAY (CURRENT) USE OF ANTICOAGULANT 12/22/2017 LIONEL BRAGA MD Ot Z79.899 OTHER DOCENT COORDINATOR (CURRENT) DRUG THERAPY 12/22/2017 LIONEL BRAGA MD [...] SERUM, 12/31/2017 LIONEL BRAGA MD Ot Z79.01 DOCENT COORDINATOR (CURRENT) USE OF ANTICOAGULANT 12/31/2017 LIONEL BRAGA MD Ot Z79.899 OTHER DOCENT COORDINATOR (CURRENT) DRUG THERAPY 12/31/2017 LIONEL BRAGA MD [...] SERUM, 02/04/2018 LIONEL BRAGA MD, Ot Z79.01 DOCENT COORDINATOR (CURRENT) USE OF ANTICOAGULANT 02/04/2018 LIONEL BRAGA MD, Ot Z79.899 OTHER DOCENT COORDINATOR (CURRENT) DRUG THERAPY 02/04/2018 LIONEL BRAGA MD, [...] EDEMA 02/04/2018 Phyllis SAEED MD Ot Z79.82 HALFWAY (CURRENT) USE OF ASPIRIN 02/04/2018 Phyllis SAEED MD Ot Z79.899 OTHER HALFWAY (CURRENT) DRUG THERAPY 02/04/2018 Phyllis SAEED MD, [...] SERUM, 02/04/2018 LIONEL BRAGA MD, Ot Z79.01 DOCENT COORDINATOR (CURRENT) USE OF ANTICOAGULANT 02/04/2018 LIONEL BRAGA MD, Ot Z79.899 OTHER DOCENT COORDINATOR (CURRENT) DRUG THERAPY 02/04/2018 LIONEL BRAGA MD [...] SERUM, 02/05/2018 LIONEL BRAGA MD, Ot Z79.01 HALFWAY (CURRENT) USE OF ANTICOAGULANT 02/05/2018 LIONEL BRAGA MD, Ot Z79.899 OTHER DOCENT COORDINATOR (CURRENT) DRUG THERAPY 02/05/2018 LIONEL BRAGA MD, Ot 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 PACEMAKER 02/16/2018 PHAM BURNETTE MD, Ot E03.9 HYPOTHYROIDISM, UNSPECIFIED 02/16/2018 PHAM BURNETTE MD, Ot F41.9 ANXIETY DISORDER, UNSPECIFIED 02/16/2018 PHAM BURNETTE MD, Ot I10 ESSENTIAL (PRIMARY) HYPERTENSION 02/16/2018 PHAM BURNETTE MD, Ot I48.91 UNSPECIFIED ATRIAL FIBRILLATION 02/16/2018 PHAM BURNETTE MD, Ot M79.671 PAIN IN RIGHT FOOT 02/16/2018 PHAM BURNETTE MD, Ot S90.31XA CONTUSION OF RIGHT FOOT, INITIAL ENCOUNT 02/16/2018 PHAM BURNETTE MD, Ot X58.XXXA EXPOSURE TO OTHER SPECIFIED FACTORS, INI 02/16/2018 PHAM BURNETTE MD, Ot Z79.01 HALFWAY (CURRENT) USE OF ANTICOAGULANT 02/16/2018 PHAM BURNETTE MD, Ot Z82.49 FAMILY HX OF ISCHEM HEART DIS AND OTH DI 02/16/2018 PHAM BURNETTE MD, Ot Z85.51 PERSONAL HISTORY OF MALIGNANT NEOPLASM O 02/16/2018 PHAM BURNETTE MD, Ot Z87.448 PERSONAL HISTORY OF OTHER DISEASES OF UR 02/16/2018 PHAM BURNETTE MD, Ot Z88.0 ALLERGY STATUS TO PENICILLIN 02/16/2018 PHAM BURNETTE MD, Ot Z88.2 ALLERGY STATUS TO SULFONAMIDES STATUS 02/16/2018 PHAM BURNETTE MD, Ot 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 PACEMAKER Procedures Code Description Performed By Performed On [id number] IMMOBILIZATION OF RIGHT LOWER ARM USING 02/16/2017 70KD84H INSERTION OF INFUSION DEV INTO SUP VENA 02/17/2017 [id number] ORIENTAL ORTHODOX OF CARDIAC RHYTHM, SINGLE 04/04/2017 Results Test [...] TEXT EXTERNAL SENSISTIVITY REPORTED ON BLOOD CULTURE [facility] QUANTITY OF GROWTH Isolated [facility] Bacterial blood culture [id number] [facility] FREE TEXT ENTRY 2 [id number] 02/16 06:25 [facility] Bacterial blood culture - 02/13/17 14:28 FREE TEXT EXTERNAL SENSITIVITY REPORTED 02/16 06:25 [facility] QUANTITY OF GROWTH Isolated [facility] Bacterial blood culture [id number] [facility] Bacterial susceptibility panel - 02/13/17 14:28 [...] RESULTS NEGATIVE FOR ANTIGEN AND TOXIN A/B NR Complete blood count (CBC) with automated white [...] (T4) free measurement (mass/volume) 1.11 ng/dL 0.70-1.48 [id number] - 11/26/17 14:20 [id number] 23 % 47-209 Immunoglobulin panel (IgG, IgM, [...] Status Pt. Type Provider Facility Loc./Unit Complaint [id number] 02/14/2018 08:51:00 02/14/2018 09:49:00 DIS Outpatient YOMAIRA ESPARZA, PHAM Mackenzie [facility] ER RT ANKLE PAIN [id number] 02/09/2018 10:11:00 02/09/2018 23:59:59 CLS Outpatient LIONEL BRAGA MD [facility] ONC [id number] 12/15/2017 13:27:00 02/04/2018 12:01:00 DIS Outpatient LIONEL BRAGA MD [facility] ONC [id number] 12/07/2017 08:45:00 12/07/2017 23:59:59 CLS Outpatient LIONEL BRAGA MD [facility] SDC MULTIPLE MYCLOMA [id number] 11/26/2017 14:26:00 11/26/2017 23:59:59 CLS Outpatient RAH BLAS MD [facility] LAB [id number] 11/26/2017 14:22:00 11/26/2017 23:59:59 CLS Outpatient NI SAEED MD [facility] LAB [id number] 06/12/2017 11:32:00 06/12/2017 23:59:59 CLS Outpatient J LUIS ANAYA APRN [facility] RAD R07.81 [id number] 05/28/2017 09:13:00 05/28/2017 23:59:59 CLS Outpatient Phyllis SAEED MD [facility] CATH AFE RVR [id number] 04/06/2017 12:45:00 04/06/2017 23:59:59 CLS Outpatient Phyllis SAEED MD [facility] RAD N18.3 [id number] 04/03/2017 14:05:00 04/04/2017 17:50:00 DIS Inpatient RAH BLAS MD [facility] ICU A-FIB W/ RVR [id number] 02/18/2017 09:23:00 02/23/2017 14:40:00 DIS Inpatient RAH BLAS MD [facility] 4TH SWB-SEPSIS,RENAL FAILURE, HYPERTENSION,WEAKNESS [id number] 02/13/2017 17:00:00 02/18/2017 09:15:00 DIS Inpatient RAH BLAS MD [facility] 4TH HYPOTENSION,UTI,DIARRHEA, RT ULNA FX [id number] 01/16/2016 12:47:00 01/16/2016 23:59:59 CLS Outpatient MUNIRA HINOJOSA MD [facility] RAD BLAD CA-C67.9 [id number] 04/02/2015 16:35:00 04/02/2015 23:59:59 CLS Outpatient J LUIS ANAYA APRN [facility] RAD LEFT LOWER EXTREMITY SWELLING,POPLITEAL PAIN [id number] 03/02/2014 12:50:00 03/21/2014 13:29:00 DIS Outpatient RONALDO ESPARZA, JESIKA Brunson [facility] REHAB S/P L DISTAL RADIUS FX [id number] 11/30/2013 07:32:00 11/30/2013 09:26:00 DIS Emergency MARCE ALBARRAN DO [facility] ER FALL/LEFT WRIST INJURY [id number] 09/16/2013 07:56:00 09/16/2013 23:59:59 CLS Outpatient MUNIRA HINOJOSA MD [facility] RAD GROSS HEMATURIA [id number] 08/31/2013 11:33:00 08/31/2013 23:59:59 CLS Outpatient RAH BLAS MD [facility] LAB GROSS HEMATURIA [id number] 05/14/2013 11:30:00 05/17/2013 11:42:00 DIS Inpatient RAH BLAS MD [facility] 4TH PNEUMONIA BILAT,ACUTE RENAL FAILURE,VOLUME OVERLOA [id number] 03/05/2013 13:46:00 03/05/2013 16:21:00 DIS Emergency SHAZIA BECKER APRN [facility] ER POSS KIDNEY INFECTION [id number] 02/16/2013 10:45:00 02/21/2013 16:00:00 DIS Inpatient RAH BLAS MD [facility] 4TH SYNCOPE,NECK SWELLING [id number] 03/06/2018 14:15:00 ACT Emergency YOMAIRA ESPARZA, PHAM Mackenzie [facility] ER A-FIB [id number] 01/16/2016 12:46:00 Document Registration [id number] 01/16/2016 12:46:00 Document Registration [id number] 01/16/2016 12:46:00 Document Registration [id number] 07/05/2012 10:05:00 Document Registration [id number] 03/03/2012 08:54:00 Document Registration [id number] 10/16/2011 09:55:00 Document Registration [id number] 08/08/2011 11:34:00 Document Registration [id number] 07/17/2011 12:43:00 Document Registration [id number] 06/17/2011 08:34:00 Document Registration [id number] 06/14/2011 09:01:00 Document Registration [id number] 06/10/2011 12:34:00 Document Registration [id number] 02/20/2011 08:16:00 Document Registration [id number] 08/15/2010 08:00:00 Document Registration [id number] 03/12/2017 23:17:50 03/12/2017 23:59:59 CLS Outpatient Rah Blas [id number] 01/14/2017 13:27:47 01/14/2017 13:27:47 DIS Unknown
[2018-03-06 14:45] LABS: BASOPHILS % (AUTO) 0 % (0-10); EOSINOPHILS # (AUTO) 0.2 10^3/uL (0.0-0.3); EOSINOPHILS % (AUTO) 2 % (0-10); HEMATOCRIT 35 % (35-52); HEMOGLOBIN 11.7 G/DL (11.5-16.0); LYMPHOCYTES # (AUTO) 1.4 X 10^3 (1.0-4.0); LYMPHOCYTES % (AUTO) 17 % (12-44); MEAN CORPUSCULAR HEMOGLOBIN 29 PG (25-34); MEAN CORPUSCULAR HGB CONC 33 G/DL (32-36); MEAN CORPUSCULAR VOLUME 89 FL (80-99); MEAN PLATELET VOLUME 10.1 FL (7.4-10.4); MONOCYTES # (AUTO) 0.8 X 10^3 (0.0-1.0); MONOCYTES % (AUTO) 10 % (0-12); NEUTROPHILS # (AUTO) 5.7 X 10^3 (1.8-7.8); NEUTROPHILS % (AUTO) 70 % (42-75); PLATELET COUNT 300 10^3/uL (130-400); RED BLOOD COUNT 3.98 10^6/uL (4.35-5.85); RED CELL DISTRIBUTION WIDTH 14.8 % (10.0-14.5); WHITE BLOOD COUNT 8.1 10^3/uL (4.3-11.0)
[2018-03-06 14:48] LABS: INR 1.3 (0.8-1.4); PROTHROMBIN TIME PATIENT 16.2 SEC (12.2-14.7)
--- NOTE | 2018-03-06 14:51 | ED Cardiac General ---
History of Present Illness General Chief Complaint: Cardiac/General Problems Stated Complaint: A-FIB Source: patient Exam Limitations: no limitations History of Present Illness Date Seen by Provider: Mar 06, 2018 Time Seen by Provider: 14:30 Initial Comments Patient is an 87-year-old female who presents to the emergency room with complaints of atrial fibrillation. She reports that she's had history of A. fib RVR and every time she is required to be cardioverted back into sinus rhythm. She is not had one of these episodes since last April. She sees Dr. German for cardiology and Dr. Blas for primary care. She denies any chest pain or shortness of breath. Timing/Duration: 1 hour Associated Systoms: Denies Symptoms Allergies and Home Medications Allergies Coded Allergies: Penicillins (Verified Allergy, Unknown, 06/19/08) Sulfa (Sulfonamide Antibiotics) (Verified Allergy, Unknown, 06/19/08) Home Medications Alprazolam 0.5 Mg Tablet, 0.25-0.5 MG PO TID PRN for ANXIETY, (Reported) TAKES 1/2 TO 1 (0.5MG) TABLET Apixaban 2.5 Mg Tablet, 2.5 MG PO BID@0600,1800 Prescribed by: Phyllis GERMAN on 04/04/17 1053 Brimonidine Tartrate/Timolol 5 Ml Drops, 1 DROP OS DAILY, (Reported) Carvedilol 12.5 Mg Tablet, 6.25 MG PO BID, (Reported) TAKES 1/2 (12.5MG) TABLET Cholecalciferol (Vitamin D3) 1,000 Unit Tablet, 1,000 UNIT PO 1200, (Reported) Cholecalciferol (Vitamin D3) 1,000 Unit Capsule, 2,000 UNIT PO BID, (Reported) Citalopram Hydrobromide 40 Mg Tablet, 40 MG PO DAILY, (Reported) Diltiazem HCl 360 Mg Capsule.er, 360 MG PO DAILY, (Reported) Diltiazem HCl 120 Mg Cap.er.24h, 120 MG PO DAILY Prescribed by: NATHAN YEE on 03/06/18 1601 Docusate Sodium 100 Mg Capsule, 100 MG PO BID, (Reported) Ergocalciferol (Vitamin D2) 50,000 Unit Capsule, 50,000 UNITS PO Sa, (Reported) Flaxseed Oil 1,000 Mg Capsule, 1,000 MG PO DAILY, (Reported) Furosemide 40 Mg Tablet, 40 MG PO DAILY PRN for SWELLING, (Reported) Hydralazine HCl 100 Mg Tablet, 100 MG PO BID, (Reported) Hydrocodone/Acetaminophen 1 Each Tablet, 0.5-1 TAB PO Q6H PRN for PAIN-MODERATE, (Reported) Levothyroxine Sodium 25 Mcg Tablet, 12.5 MCG PO DAILY, (Reported) TAKES 1/2 (25MCG) TABLET Lisinopril 40 Mg Tablet, 40 MG PO DAILY, (Reported) Patient Home Medication List Home Medication List Reviewed: Yes Review of Systems Review of Systems Constitutional: see HPI; No chills, No fever Cardiovascular: See HPI, Irregular Heart Rate All Other Systems Reviewed Negative Unless Noted: Yes Past Tcpahsc-Cavpma-Fzfovn Hx Past Med/Social Hx: Reviewed Nursing Past Med/Soc Hx Patient Social History Alcohol Use: Denies Use Recreational Drug Use: No Smoking Status: Never a Smoker 2nd Hand Smoke Exposure: No Recent Foreign Travel: No Contact w/Someone Who Travel: No Recent Hopitalizations: No Immunizations Up To Date Tetanus Booster (TDap): Unknown Date of Pneumonia Vaccine: May 15, 2013 Date of Influenza Vaccine: Feb 18, 2017 Seasonal Allergies Seasonal Allergies: No Past Medical History Surgeries: Yes Abdominal, Pacemaker Respiratory: No Cardiac: Yes (pacemaker) Atrial Fibrillation, Hypertension, Irregular Heartbeat Neurological: No Reproductive Disorders: Yes (BARTHOLIN CYSTS X 2 WITH SURGERY FOR BOTH) Genitourinary: Yes Bladder Infection, Renal Failure Gastrointestinal: No Musculoskeletal: No Endocrine: Yes Hypothyroidsim HEENT: Yes Cataract Hearing Impairment: Denies Cancer: Yes Bladder Did You Recieve Any Treatments: Yes What Type of Treatment Did You: Surgical Intervention Psychosocial: Yes Sleep Difficulties, Anxiety Integumentary: Yes (PEREZ FROM TAKING COUMADIN) Blood Disorders: No Adverse Reaction/Blood Tranf: No Family Medical History Reviewed Nursing Family Hx Patient reports no known family medical history. Heart Disease, Hypertension Physical Exam Vital Signs Vital Signs - First Documented 03/06/18 14:18 Temp 98.0 Pulse 118 Resp 18 B/P (MAP) 145/94 (111) Pulse Ox 96 O2 Delivery Room Air Capillary Refill : Height, Weight, BMI Height: 5'5.00" Weight: 150lbs. 0.0oz. 68.076973lx; 25.5 BMI Method:Stated General Appearance: No Apparent Distress, WD/WN Respiratory: Chest Non Tender, Lungs Clear, Normal Breath Sounds, No Accessory Muscle Use, No Respiratory Distress Cardiovascular: No Edema, No Gallop, No JVD, No Murmur, Normal Peripheral Pulses, Irregularly Irregular (Atrial fibrillation) Gastrointestinal: Normal Bowel Sounds, No Organomegaly, No Pulsatile Mass, Non Tender Extremity: Normal Capillary Refill Neurologic/Psychiatric: Alert, Oriented x3, Normal Mood/Affect Skin: Normal Color, Warm/Dry Progress/Results/Core Measures Results/Orders Lab Results Laboratory Tests Test 03/06/18 14:33 Range/Units White Blood Count 8.1 4.3-11.0 10^3/uL Red Blood Count 3.98 L 4.35-5.85 10^6/uL Hemoglobin 11.7 11.5-16.0 G/DL Hematocrit 35 35-52 % Mean Corpuscular Volume 89 80-99 FL Mean Corpuscular Hemoglobin 29 25-34 PG Mean Corpuscular Hemoglobin Concent 33 32-36 G/DL Red Cell Distribution Width 14.8 H 10.0-14.5 % Platelet Count 300 130-400 10^3/uL Mean Platelet Volume 10.1 7.4-10.4 FL Neutrophils (%) (Auto) 70 42-75 % Lymphocytes (%) (Auto) 17 12-44 % Monocytes (%) (Auto) 10 0-12 % Eosinophils (%) (Auto) 2 0-10 % Basophils (%) (Auto) 0 0-10 % Neutrophils # (Auto) 5.7 1.8-7.8 X 10^3 Lymphocytes # (Auto) 1.4 1.0-4.0 X 10^3 Monocytes # (Auto) 0.8 0.0-1.0 X 10^3 Eosinophils # (Auto) 0.2 0.0-0.3 10^3/uL Basophils # (Auto) 0.0 0.0-0.1 10^3/uL Prothrombin Time 16.2 H 12.2-14.7 SEC INR Comment 1.3 0.8-1.4 Activated Partial Thromboplast Time 30 24-35 SEC Sodium Level 140 135-145 MMOL/L Potassium Level 4.8 3.6-5.0 MMOL/L Chloride Level 110 H 98-107 MMOL/L Carbon Dioxide Level 19 L 21-32 MMOL/L Anion Gap 11 5-14 MMOL/L Blood Urea Nitrogen 32 H 7-18 MG/DL Creatinine 1.70 H 0.60-1.30 MG/DL Estimat Glomerular Filtration Rate 28 BUN/Creatinine Ratio 19 Glucose Level 115 H 70-105 MG/DL Calcium Level 9.0 8.5-10.1 MG/DL Corrected Calcium 9.2 8.5-10.1 MG/DL Magnesium Level 1.9 1.8-2.4 MG/DL Total Bilirubin 0.5 0.1-1.0 MG/DL Aspartate Amino Transf (AST/SGOT) 12 5-34 U/L Alanine Aminotransferase (ALT/SGPT) 10 0-55 U/L Alkaline Phosphatase 54 40-136 U/L Myoglobin 43.2 10.0-92.0 NG/ML Troponin I < 0.30 <0.30 NG/ML B-Type Natriuretic Peptide 899.9 H <100.0 PG/ML Total Protein 6.3 L 6.4-8.2 GM/DL Albumin 3.7 3.2-4.5 GM/DL My Orders Orders - BERNOT,NATHAN Cbc With Automated Diff (03/06/18 14:33) Magnesium (03/06/18 14:33) Chest 1 View, Ap/Pa Only (03/06/18 14:33) Cardiac Profile 1 (03/06/18 14:33) Comprehensive Metabolic Panel (03/06/18 14:33) Myoglobin Serum (03/06/18 14:33) Protime With Inr (03/06/18 14:33) Partial Thromboplastin Time (03/06/18 14:33) O2 (03/06/18 14:33) Monitor-Rhythm Ecg Trace Only (03/06/18 14:33) Saline Lock/Iv-Start (03/06/18 14:33) BNP (03/06/18 14:33) Diltiazem Cd 24 Hr Capsule (Cardizem Cd (03/06/18 15:45) Vital Signs/I&O 03/06/18 03/06/18 14:18 16:35 Temp 98.0 Pulse 118 88 Resp 18 18 B/P (MAP) 145/94 (111) 136/94 (108) Pulse Ox 96 98 O2 Delivery Room Air Simple Mask Progress Progress Note : Time: 15:00 Progress Note I have seen and evaluated the patient. I have discussed the case with Dr. Crowell at this time. He believes that she can be treated outpatient with an increase in her Cardizem by 120mg for the next few days until she see Dr. German. She is on elequis. He rate has remained below 100 throughout her stay. She agrees with plan of care, return precautions were given. EKG : EKG Time: 14:19 Rate: 108 Rhythm: A Fib/Flutter ECG Comparisson: Changed ECG Impression: Atrial Fibrillation Diagnostic Imaging Diagonstic Imaging: Xray Plain Films/CT/US/NM/MRI: chest Comments VIA [facility]. [place], [place] NAME: DUYEN IBARRA [facility] REC#: [id number] PT STATUS: REG ER : 1930 PHYSICIAN: NATHAN YEE ADMIT DATE: 03/06/18/ER Draft Date of Exam:03/06/18 CHEST 1 VIEW, AP/PA ONLY INDICATION: Atrial fibrillation. EXAMINATION: Chest dated 03/06/2018. COMPARISON: 04/03/2017. FINDINGS: There is cardiomegaly. Pulmonary vasculature stable from previous. Left-sided pacemaker unchanged. Lungs slightly hyperinflated but clear. No infiltrates or effusions. No pneumothorax. IMPRESSION: 1. Chronic changes as described with cardiomegaly noted. 2. Changes of emphysematous disease. Dictated on workstation # [id number] Dict: 03/06/18 1449 Trans: 03/06/18 1456 [facility] [id number] Interpreted by: [place] MI MD Electronically signed by: Reviewed: Reviewed by Me Departure Impression Primary Impression: Atrial fibrillation Disposition: HOME, SELF-CARE Condition: Stable/Unchanged Departure-Patient Inst. Decision time for Depature: 15:58 Referrals: RAH BLAS MD (PCP/Family) Primary Care Physician Patient Instructions: Atrial Fibrillation (DC) Add. Discharge Instructions: Take the Cardizem 120 mg for the next 3 days until you follow up with Dr. German on Thursday for further evaluation. Resume your home medications as previously prescribed. Return back to the emergency room for any worsening shortness of breath, irregular heartbeat, chest pain, dizziness, low blood pressure, or any other concerns as needed. Call first thing Thursday morning to let Dr. German know that sure in the emergency room to see if he can move her appointment up any sooner. All discharge instructions reviewed with patient and/ or family. Voiced understanding. Scripts Diltiazem HCl (Cardizem Cd) 120 Mg Cap.er.24h 120 MG PO DAILY for 3 Days, #3 CAP Prov: NATHAN YEE 03/06/18 NATHAN YEE Mar 06, 2018 14:51
--- NOTE | 2018-03-06 14:57 | Diagnostic Imaging Report ---
INDICATION: Atrial fibrillation. EXAMINATION: Chest dated 03/06/2018. COMPARISON: 04/03/2017. FINDINGS: There is cardiomegaly. Pulmonary vasculature stable from previous. Left-sided pacemaker unchanged. Lungs slightly hyperinflated but clear. No infiltrates or effusions. No pneumothorax. IMPRESSION: 1. Chronic changes as described with cardiomegaly noted. 2. Changes of emphysematous disease. Dictated by: Dictated on workstation # [id number]
[2018-03-06 14:59] LABS: ALANINE AMINOTRANSFERASE 10 U/L (0-55); ALBUMIN 3.7 GM/DL (3.2-4.5); ALKALINE PHOSPHATASE 54 U/L (40-136); BILIRUBIN,TOTAL 0.5 MG/DL (0.1-1.0); BUN/CREATININE RATIO 19; CARBON DIOXIDE 19 MMOL/L (21-32); CHLORIDE 110 MMOL/L (98-107); GFR ESTIMATED 28; GLUCOSE 115 MG/DL (70-105); MAGNESIUM 1.9 MG/DL (1.8-2.4); POTASSIUM 4.8 MMOL/L (3.6-5.0); SODIUM 140 MMOL/L (135-145); TOTAL PROTEIN 6.3 GM/DL (6.4-8.2)
[2018-03-06 15:06] LABS: MYOGLOBIN SERUM 43.2 NG/ML (10.0-92.0)
[2018-03-06] MEDS ORDERED: DILTIAZEM 120 MG (CARDIZEM CD) CAP PO SCH (15:45)
[2018-03-06] MEDS ORDERED: DILT120C82 PO (16:01)
[2018-03-06 16:35] VITALS: BP 136/94
== END 2018-03-06 16:34 | disposition home or self-care (01) ==
LOC: EDUNIT# 14:14 → ER 14:15
DX: I48.91 Unspecified atrial fibrillation (principal); I10 Essential (primary) hypertension; F41.9 Anxiety disorder, unspecified; E03.9 Hypothyroidism, unspecified; Z87.448 Personal history of other diseases of urinary system; Z85.51 Personal history of malignant neoplasm of bladder; Z82.49 Family history of ischemic heart disease and other diseases of the circulatory system; Z88.0 Allergy status to penicillin; Z88.2 Allergy status to sulfonamides; Z79.01 Long term (current) use of anticoagulants; Z95.0 Presence of cardiac pacemaker
CPT/HCPCS: 36415; 71045; 80053; 83735; 83874; 83880; 84484; 85025; 85610; 85730; 93005; 93041

== ENCOUNTER → 2018-03-11 | Day surgery (SDC) | payer MEDICARE, BC ==
[~2018-03-11] VITALS: Ht 165.1 cm; Wt 67.1 kg
[2018-03-11] VITALS (7 sets, daily range): BP systolic 134–160; BP diastolic 68–92
[~2018-03-11] MED LIST changes: +DILT120C82 PO; +MIDAZOLAM 5 MG/5 ML (VERSED) VIAL ONE; +NS IV 1000 ML 1,000 ML IV ONE; +NS IV 1000 ML 1,000 ML ONE; +proPOfol 200 MG/20 ML (DIPRIVAN) VIAL IV ONE
--- OUTSIDE RECORDS SUMMARY | 2018-03-11 12:43 | XMS REPORT | Continuity of Care Document ---
Author Author [facility] Organization [facility] Address Unknown Phone Unavailable Allergies Active Description Code Type Severity Reaction Onset Reported/Identified Relationship to Patient Clinical Status Yes PCN Drug Allergy N/A N/A Yes SULFA Drug Allergy N/A N/A Yes Penicillins [id number] Drug Allergy Unknown N/A 06/19/2008 Yes Sulfa (Sulfonamide Antibiotics) [id number] Drug Allergy Unknown N/A 2008 Medications Medication [...] Ot V58.61 ANTICOAGULANTS,LT,CURRENT USE 03/05/2013 SHAZIA BECKER CENTERLESS GRINDER Ot 599.0 URIN TRACT INFECTION NOS 03/05/2013 SHAZIA BECKER [employer] GRINDER Ot 789.09 ABDOMINAL PAIN, OTHER SPECIFIED SITE 05/17/2013 RAH BLAS MD Ot 244.9 HYPOTHYROIDISM NOS 05/17/2013 RAH BLAS MD Ot 272.4 HYPERLIPIDEMIA NEC/NOS 05/17/2013 RAH BLAS MD Ot 300.00 ANXIETY STATE NOS 05/17/2013 RAH BLAS MD Ot 403.90 HYPTNSV CHR KID DIS, UNSPEC, W CHR KD ST 05/17/2013 RAH BLAS MD Ot 414.01 CORONARY ATHEROSCLEROSIS OF [place] CORON 05/17/2013 RAH BLAS MD Ot 427.31 [...] FOR OCCUPATIONAL THERAPY 04/26/2015 J LUIS ANAYA CENTERLESS GRINDER Ot M79.605 04/26/2015 J LUIS ANAYA CENTERLESS GRINDER Ot R22.42 05/03/2015 J LUIS ANAYA CENTERLESS GRINDER Ot M79.605 05/03/2015 J LUIS ANAYA CENTERLESS GRINDER Ot R22.42 01/16/2016 Ot 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 01/16/2016 [...] 599.71 GROSS HEMATURIA 01/16/2016 J LUIS ANAYA CENTERLESS GRINDER Ot M79.605 PAIN IN LEFT LEG 01/16/2016 J LUIS ANAYA CENTERLESS GRINDER Ot R22.42 LOCALIZED SWELLING, MASS AND LUMP, LEFT 01/18/2016 MUNIRA HINOJOSA MD Ot C67.9 MALIGNANT NEOPLASM OF BLADDER, UNSPECIFI 02/08/2016 MUNIRA HINOJOSA MD Ot C67.9 MALIGNANT NEOPLASM OF BLADDER, UNSPECIFI 02/13/2016 MUNIRA HNIOJOSA MD Ot C67.9 MALIGNANT NEOPLASM OF BLADDER, UNSPECIFI 02/13/2017 Ot 721.3 LUMBOSACRAL SPONDYLOSIS 02/13/2017 Ot 805.2 FX DORSAL VERTEBRA-CLOSE 02/13/2017 Ot E000.8 OTHER EXTERNAL CAUSE STATUS 02/13/2017 Ot E849.6 ACCIDENT IN PUBLIC BLDG 02/13/2017 Ot E888.9 FALL NOS 02/13/2017 Ot V76.12 OTH SCREEN MAMMO-MALIGN NEOPLASM OF [place] 02/13/2017 Ot 401.9 HYPERTENSION NOS 02/13/2017 ARH BLAS MD Ot 599.71 GROSS HEMATURIA 02/13/2017 MUNIRA HINOJOSA MD Ot 596.89 OTHER SPECIFIED DISORDERS OF BLADDER 02/13/2017 MUNIRA HINOJOSA MD Ot 599.71 GROSS HEMATURIA 02/13/2017 J LUIS ANAYA CENTERLESS GRINDER Ot M79.605 PAIN IN LEFT LEG 02/13/2017 J LUIS ANAYA CENTERLESS GRINDER Ot R22.42 LOCALIZED SWELLING, MASS AND LUMP, [...] RESUSCITATE 02/18/2017 RAH BLAS MD Ot Z79.82 DIRECTOR PATIENT (CURRENT) USE OF ASPIRIN 02/18/2017 RAH BLAS [...] RESUSCITATE 02/19/2017 RAH BLAS MD Ot Z79.82 NURSING HOME (CURRENT) USE OF ASPIRIN 02/19/2017 RAH BLAS [...] RESUSCITATE 02/23/2017 RAH BLAS MD Ot Z79.82 DIRECTOR PATIENT (CURRENT) USE OF ASPIRIN 02/23/2017 RAH BLAS [...] EDEMA 06/01/2017 Phyllis SAEED MD Ot Z79.82 NURSING HOME (CURRENT) USE OF ASPIRIN 06/01/2017 Phyllis SAEED MD Ot Z79.899 OTHER NURSING HOME (CURRENT) DRUG THERAPY 06/01/2017 Phyllis SAEED MD [...] EDEMA 06/19/2017 Phyllis SAEED MD Ot Z79.82 NURSING HOME (CURRENT) USE OF ASPIRIN 06/19/2017 Phyllis SAEED MD Ot Z79.899 OTHER DIRECTOR PATIENT (CURRENT) DRUG THERAPY 06/19/2017 Phyllis SAEED MD [...] EDEMA 06/24/2017 Phyllis SAEED MD Ot Z79.82 DIRECTOR PATIENT (CURRENT) USE OF ASPIRIN 06/24/2017 Phyllis SAEED MD Ot Z79.899 OTHER DIRECTOR PATIENT (CURRENT) DRUG THERAPY 06/24/2017 Phyllis SAEED MD [...] EDEMA 11/26/2017 Phyllis SAEED MD Ot Z79.82 NURSING HOME (CURRENT) USE OF ASPIRIN 11/26/2017 Phyllis SAEED MD Ot Z79.899 OTHER NURSING HOME (CURRENT) DRUG THERAPY 11/26/2017 Phyllis SAEED MD [...] UNSPECIFI 12/07/2017 LIONEL BRAGA MD Ot Z79.01 DIRECTOR PATIENT (CURRENT) USE OF ANTICOAGULANT 12/07/2017 LIONEL BRAGA [...] SERUM, 12/22/2017 LIONEL BRAGA MD Ot Z79.01 NURSING HOME (CURRENT) USE OF ANTICOAGULANT 12/22/2017 LIONEL BRAGA MD Ot Z79.899 OTHER DIRECTOR PATIENT (CURRENT) DRUG THERAPY 12/22/2017 LIONEL BRAGA MD [...] SERUM, 12/31/2017 LIONEL BRAGA MD Ot Z79.01 DIRECTOR PATIENT (CURRENT) USE OF ANTICOAGULANT 12/31/2017 LIONEL BRAGA MD Ot Z79.899 OTHER DIRECTOR PATIENT (CURRENT) DRUG THERAPY 12/31/2017 LIONEL BRAGA MD [...] SERUM, 02/04/2018 LIONEL BRAGA MD, Ot Z79.01 DIRECTOR PATIENT (CURRENT) USE OF ANTICOAGULANT 02/04/2018 LIONEL BRAGA MD, Ot Z79.899 OTHER DIRECTOR PATIENT (CURRENT) DRUG THERAPY 02/04/2018 LIONEL BRAGA MD, [...] ESSENTIAL (PRIMARY) HYPERTENSION 02/04/2018 KHALID MD, M CRITSELA Ot I48.91 UNSPECIFIED ATRIAL FIBRILLATION 02/04/2018 Phyllis SAEED MD Ot R60.0 LOCALIZED EDEMA 02/04/2018 Phyllis SAEED MD Ot Z79.82 NURSING HOME (CURRENT) USE OF ASPIRIN 02/04/2018 Phyllis SAEED MD Ot Z79.899 OTHER NURSING HOME (CURRENT) DRUG THERAPY 02/04/2018 Phyllis SAEED MD, [...] SERUM, 02/04/2018 LIONEL BRAGA MD, Ot Z79.01 DIRECTOR PATIENT (CURRENT) USE OF ANTICOAGULANT 02/04/2018 LIONEL BRAGA MD, Ot Z79.899 OTHER DIRECTOR PATIENT (CURRENT) DRUG THERAPY 02/04/2018 LIONEL BRAGA MD [...] SERUM, 02/05/2018 LIONEL BRAGA MD, Ot Z79.01 NURSING HOME (CURRENT) USE OF ANTICOAGULANT 02/05/2018 LIONEL BRAGA MD, Ot Z79.899 OTHER DIRECTOR PATIENT (CURRENT) DRUG THERAPY 02/05/2018 LIONEL BRAGA MD, Ot 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 PACEMAKER 02/16/2018 PHAM BURNETTE MD, Ot E03.9 HYPOTHYROIDISM, UNSPECIFIED 02/16/2018 PHAM BURNETTE MD, Ot F41.9 ANXIETY DISORDER, UNSPECIFIED 02/16/2018 PHAM BURNETTE MD, Ot I10 ESSENTIAL (PRIMARY) HYPERTENSION 02/16/2018 PHAM BURNETTE MD, Ot I48.91 UNSPECIFIED ATRIAL FIBRILLATION 02/16/2018 PHAM BURNETTE MD, Ot M79.671 PAIN IN RIGHT FOOT 02/16/2018 PHAM BURNETTE MD Ot S90.31XA CONTUSION OF RIGHT FOOT, INITIAL ENCOUNT 02/16/2018 PHAM BURNETTE MD, Ot X58.XXXA EXPOSURE TO OTHER SPECIFIED FACTORS, INI 02/16/2018 PHAM BURNETTE MD, Ot Z79.01 NURSING HOME (CURRENT) USE OF ANTICOAGULANT 02/16/2018 PHAM BURNETTE MD, Ot Z82.49 FAMILY HX OF ISCHEM HEART DIS AND OTH DI 02/16/2018 PHAM BURNETTE MD, Ot Z85.51 PERSONAL HISTORY OF MALIGNANT NEOPLASM O 02/16/2018 PHAM BURNETTE MD, Ot Z87.448 PERSONAL HISTORY OF OTHER DISEASES OF UR 02/16/2018 PHAM BURNETTE MD, Ot Z88.0 ALLERGY STATUS TO PENICILLIN 02/16/2018 PHAM BURNETTE MD Ot Z88.2 ALLERGY STATUS TO SULFONAMIDES STATUS 02/16/2018 PHAM BURNETTE MD Ot 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 PACEMAKER 03/08/2018 NATHAN YEE Ot E03.9 HYPOTHYROIDISM, UNSPECIFIED 03/08/2018 NATHAN YEE Ot F41.9 ANXIETY DISORDER, UNSPECIFIED 03/08/2018 NATHAN YEE Ot I10 ESSENTIAL (PRIMARY) HYPERTENSION 03/08/2018 NATHAN YEE Ot I48.91 UNSPECIFIED ATRIAL FIBRILLATION 03/08/2018 NATHAN YEE Ot Z79.01 NURSING HOME (CURRENT) USE OF ANTICOAGULANT 03/08/2018 NATHAN YEE Ot Z82.49 FAMILY HX OF ISCHEM HEART DIS AND OTH DI 03/08/2018 NATHAN YEE Ot Z85.51 PERSONAL HISTORY OF MALIGNANT NEOPLASM O 03/08/2018 NATHAN YEE Ot Z87.448 PERSONAL HISTORY OF OTHER DISEASES OF UR 03/08/2018 NATHAN YEE Ot Z88.0 ALLERGY STATUS TO PENICILLIN 03/08/2018 JOSE YEEIS Ot Z88.2 ALLERGY STATUS TO SULFONAMIDES STATUS 03/08/2018 JOSE YEEIS Ot 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 PACEMAKER Procedures Code Description Performed By Performed On [id number] IMMOBILIZATION OF RIGHT LOWER ARM USING 02/16/2017 [id number] INSERTION OF INFUSION DEV INTO SUP VENA 02/17/2017 [id number] HINDU OF CARDIAC RHYTHM, SINGLE 04/04/2017 Results Test [...] OF GROWTH Isolated NRG Bacterial blood culture [id number] NR FREE TEXT ENTRY 2 [id number] 02/16 06:25 NRG Bacterial blood culture - 02/13/17 14:28 FREE TEXT EXTERNAL SENSITIVITY REPORTED 02/16 06:25 NRG QUANTITY OF GROWTH Isolated NRG Bacterial blood culture [id number] NR Bacterial susceptibility panel - 02/13/17 14:28 [...] Serum or plasma phosphate measurement (mass/volume) - 10/14/17 04:10 Serum or plasma phosphate measurement (mass/volume) [...] (T4) free measurement (mass/volume) 1.11 ng/dL 0.70-1.48 [id number] - 11/26/17 14:20 [id number] 23 % 47-209 Immunoglobulin panel (IgG, IgM, [...] 90 Blood reticulocytes/100 erythrocytes 2.01 % 0.50-2.40 Complete blood count (CBC) with automated white blood cell (WBC) differential - 03/06/18 14:33 Blood leukocytes automated count (number/volume) 8.1 10*3/uL 4.3-11.0 Blood erythrocytes automated count (number/volume) 3.98 10*6/uL 4.35-5.85 Venous blood hemoglobin measurement (mass/volume) 11.7 g/dL 11.5-16.0 Blood hematocrit (volume fraction) 35 % 35-52 Automated erythrocyte mean corpuscular volume 89 [foz_us] 80-99 Automated erythrocyte mean corpuscular hemoglobin (mass per erythrocyte) 29 pg 25-34 Automated erythrocyte mean corpuscular hemoglobin concentration measurement ( mass/volume) 33 g/dL 32-36 Automated erythrocyte distribution width ratio 14.8 % 10.0-14.5 Automated blood platelet count (count/volume) 300 10*3/uL 130-400 Automated blood platelet mean volume measurement 10.1 [foz_us] 7.4-10.4 Automated blood neutrophils/100 leukocytes 70 % 42-75 Automated blood lymphocytes/100 leukocytes 17 % 12-44 Blood monocytes/100 leukocytes 10 % 0-12 Automated blood eosinophils/100 leukocytes 2 % 0-10 Automated blood basophils/100 leukocytes 0 % 0-10 Blood neutrophils automated count (number/volume) 5.7 10*3 1.8-7.8 Blood lymphocytes automated count (number/volume) 1.4 10*3 1.0-4.0 Blood monocytes automated count (number/volume) 0.8 10*3 0.0-1.0 Automated eosinophil count 0.2 10*3/uL 0.0-0.3 Automated blood basophil count (count/volume) 0.0 10*3/uL 0.0-0.1 PT panel in platelet poor plasma by coagulation assay - 03/06/18 14:33 Prothrombin time (PT) in platelet poor plasma by coagulation assay 16.2 s 12.2-14.7 INR in platelet poor plasma or blood by coagulation assay 1.3 0.8-1.4 Activated partial thromboplastin time (aPTT) in platelet poor plasma bycoagulation assay - 03/06/18 14:33 Activated partial thromboplastin time (aPTT) in platelet poor plasma bycoagulation assay 30 s 24-35 Comprehensive metabolic panel - 03/06/18 14:33 Serum or plasma sodium measurement (moles/volume) 140 mmol/L 135-145 Serum or plasma potassium measurement (moles/volume) 4.8 mmol/L 3.6-5.0 Serum or plasma chloride measurement (moles/volume) 110 mmol/L 98-107 Carbon dioxide 19 mmol/L 21-32 [...] NRG Serum or plasma glucose measurement (mass/volume) 115 mg/dL 70-105 Serum or plasma calcium measurement (mass/volume) 9.0 mg/dL 8.5-10.1 Serum or plasma total bilirubin measurement (mass/volume) 0.5 mg/dL 0.1-1.0 Serum or plasma alkaline phosphatase measurement (enzymatic activity/volume) 54 U/L 40-136 Serum or plasma aspartate aminotransferase measurement (enzymatic activity/ volume) 12 U/L 5-34 Serum or plasma alanine aminotransferase measurement (enzymatic activity/volume ) 10 U/L 0-55 Serum or plasma protein measurement (mass/volume) 6.3 g/dL 6.4-8.2 Serum or plasma albumin measurement (mass/volume) 3.7 g/dL 3.2-4.5 CALCIUM CORRECTED 9.2 mg/dL 8.5-10.1 Magnesium - 03/06/18 14:33 Magnesium 1.9 mg/dL 1.8-2.4 Serum or plasma troponin i.cardiac measurement (mass/volume) - 03/06/18 14:33 Serum or plasma troponin i.cardiac measurement (mass/volume) < ng/ mL <0.30 Myoglobin, serum - 03/06/18 14:33 Myoglobin, serum 43.2 ng/mL 10.0-92.0 Serum or plasma lithium measurement (moles/volume) - 03/06/18 14:33 BNP level 899.9 pg/mL <100.0 Encounters ACCT No. Visit Date/Time Discharge Status Pt. Type Provider Facility Loc./Unit Complaint [id number] 03/06/2018 14:15:00 03/06/2018 16:34:00 DIS Outpatient NATHAN YEE [facility] ER A-FIB [id number] 02/14/2018 08:51:00 02/14/2018 09:49:00 DIS Outpatient YOMAIRA ESPARZA, PHAM Mackenzie [facility] ER RT ANKLE PAIN [id number] 02/09/2018 10:11:00 02/09/2018 23:59:59 CLS Outpatient LIONEL BRAGA MD [facility] ONC [id number] 12/15/2017 13:27:00 02/04/2018 12:01:00 DIS Outpatient LIONEL BRAGA MD [facility] ONC [id number] 12/07/2017 08:45:00 12/07/2017 23:59:59 CLS Outpatient LIONEL BRAGA MD [facility] SDC MULTIPLE MYCLOMA [id number] 11/26/2017 14:26:00 11/26/2017 23:59:59 CLS Outpatient RAH BLAS MD [facility] LAB [id number] 11/26/2017 14:22:00 11/26/2017 23:59:59 CLS Outpatient NI SAEED MD [facility] LAB [id number] 06/12/2017 11:32:00 06/12/2017 23:59:59 CLS Outpatient J LUIS ANAYA APRN [facility] RAD R07.81 [id number] 05/28/2017 09:13:00 05/28/2017 23:59:59 CLS Outpatient Phyllis SAEED MD [facility] CATH AFE RVR [id number] 04/06/2017 12:45:00 04/06/2017 23:59:59 CLS Outpatient Phyllis SAEED MD [facility] RAD N18.3 [id number] 04/03/2017 14:05:00 04/04/2017 17:50:00 DIS Inpatient RAH BLAS MD [facility] ICU A-FIB W/ RVR [id number] 02/18/2017 09:23:00 02/23/2017 14:40:00 DIS Inpatient RAH BLAS MD [facility] 4TH SWB-SEPSIS,RENAL FAILURE, HYPERTENSION,WEAKNESS [id number] 02/13/2017 17:00:00 02/18/2017 09:15:00 DIS Inpatient RAH BLAS MD [facility] 4TH HYPOTENSION,UTI,DIARRHEA, RT ULNA FX [id number] 01/16/2016 12:47:00 01/16/2016 23:59:59 CLS Outpatient MUNIRA HINOJOSA MD [facility] RAD BLAD CA-C67.9 [id number] 04/02/2015 16:35:00 04/02/2015 23:59:59 CLS Outpatient J LUIS ANAYA CENTERLESS GRINDER [facility] RAD LEFT LOWER EXTREMITY SWELLING,POPLITEAL PAIN [id number] 03/02/2014 12:50:00 03/21/2014 13:29:00 DIS Outpatient JESIKA HIGGINS MD [facility] REHAB S/P L DISTAL RADIUS FX [id number] 11/30/2013 07:32:00 11/30/2013 09:26:00 DIS Emergency MARCE ALBARRAN DO [facility] ER FALL/LEFT WRIST INJURY [id number] 09/16/2013 07:56:00 09/16/2013 23:59:59 CLS Outpatient MUNIRA HINOJOSA MD [facility] RAD GROSS HEMATURIA [id number] 08/31/2013 11:33:00 08/31/2013 23:59:59 CLS Outpatient RAH BLAS MD [facility] LAB GROSS HEMATURIA [id number] 05/14/2013 11:30:00 05/17/2013 11:42:00 DIS Inpatient RAH BLAS MD [facility] 4TH PNEUMONIA BILAT,ACUTE RENAL FAILURE,VOLUME OVERLOA [id number] 03/05/2013 13:46:00 03/05/2013 16:21:00 DIS Emergency SHAZIA BECKER CENTERLESS GRINDER [facility] ER POSS KIDNEY INFECTION [id number] 02/16/2013 10:45:00 02/21/2013 16:00:00 DIS Inpatient RAH BLAS MD [facility] 4TH SYNCOPE,NECK SWELLING [id number] 01/16/2016 12:46:00 Document Registration [id number] 01/16/2016 12:46:00 Document Registration [id number] 01/16/2016 12:46:00 Document Registration [id number] 07/05/2012 10:05:00 Document Registration [id number] 03/03/2012 08:54:00 Document Registration [id number] 10/16/2011 09:55:00 Document Registration [id number] 08/08/2011 11:34:00 Document Registration [id number] 07/17/2011 12:43:00 Document Registration [id number] 06/17/2011 08:34:00 Document Registration [id number] 06/14/2011 09:01:00 Document Registration [id number] 06/10/2011 12:34:00 Document Registration [id number] 02/20/2011 08:16:00 Document Registration [id number] 08/15/2010 08:00:00 Document Registration [id number] 03/12/2017 23:17:50 03/12/2017 23:59:59 CLS Outpatient Rah Blas [id number] 01/14/2017 13:27:47 01/14/2017 13:27:47 DIS Unknown
--- NOTE | 2018-03-11 13:46 | Cardioversion ---
Cardioversion PROCEDURE PHYSICIAN: Eloy German MD DATE OF PROCEDURE: 03/11/18 DIRECT EXTERNAL ELECTRICAL CARDIOVERSION: Indications: Atrial Fibrillation with rapid ventricular rate Preoperative diagnoses: Atrial Fibrillation with rapid ventricular rate Postoperative diagnosis: Sinus rhythm, Successful Electrical Cardioversion History: Persistent atrial fibrillation - symptomatic. Anesthesia: By Anesthesia services Complications: None Specimen: None Contrast: 0 Flouroscopy: none Procedure Details: The patient was brought the mill laborer after informed consent was taken, all the risks and complications were explained including the risk of stroke. Electrical cardioversion was carried out with anesthesia support with propofol. 120 joules of synchronized shock was delivered through external patches which promptly restored sinus rhythm. The patient tolerated the procedure well. Conclusions: 1.Successful Cardioversion. 2.Continue oral anticoagulation and rate controlling agent. 3.Follow up in office in 7 - 14 days. Eloy German MD, RS, CCDS Cardiac Electrophysiology Phyllis GERMAN MD Mar 11, 2018 1:46 pm
--- NOTE | 2018-03-11 14:02 | Anesthesia-Procedure Note ---
Procedures/Interventions Procedure Start/Stop/Diagnosis Date of Procedure: Mar 11, 2018 Start Time: 13:15 Referring Physician: [id number] Preprocedural Diagnosis: A-fib RVR Stop Time: 13:20 RUFINO/Cardioversion Anesthesia Type: MAC ASA Class: 3 Medications Propofol 40 mg Monitors and Equipment: BP Cuff - Right, Continuous EKG, End Tidal CO2, IV, Pulse Oximeter READING,FREDRICK Cortez CRNA Mar 11, 2018 14:02
== END | disposition home or self-care (01) ==
LOC: CATH 12:26
PROVIDERS: ATTEND Internal Medicine Interventional Cardiology
DX: I48.1 Persistent atrial fibrillation (principal); I10 Essential (primary) hypertension; E78.5 Hyperlipidemia, unspecified; M79.89 Other specified soft tissue disorders; E03.9 Hypothyroidism, unspecified; F32.9 Major depressive disorder, single episode, unspecified; R53.83 Other fatigue; Z95.0 Presence of cardiac pacemaker; Z79.82 Long term (current) use of aspirin; Z90.5 Acquired absence of kidney; Z79.01 Long term (current) use of anticoagulants; Z79.899 Other long term (current) drug therapy
CPT/HCPCS: 92960; 93005

== ENCOUNTER 2018-04-22 08:07 | Day surgery (SDC) | payer MEDICARE, BC ==
[~2018-04-22] VITALS: Ht 165.1 cm; Wt 67.1 kg
[2018-04-22] VITALS (7 sets, daily range): BP systolic 110–133; BP diastolic 56–78
[~2018-04-22 08:07] MED LIST changes: -MIDAZOLAM 5 MG/5 ML (VERSED) VIAL ONE; -NS IV 1000 ML 1,000 ML IV ONE; -NS IV 1000 ML 1,000 ML ONE; -proPOfol 200 MG/20 ML (DIPRIVAN) VIAL IV ONE
[2018-04-22] MEDS ORDERED: NS IV 1000 ML 1,000 ML IV SCH (08:15)
[2018-04-22] MEDS ORDERED: proPOfol 200 MG/20 ML (DIPRIVAN) VIAL IV ONE (09:07)
--- NOTE | 2018-04-22 10:19 | Cardioversion ---
Cardioversion PROCEDURE PHYSICIAN: Eloy German MD DATE OF PROCEDURE: 04/22/18 DIRECT EXTERNAL ELECTRICAL CARDIOVERSION: Indications: Atrial Fibrillation with rapid ventricular rate Preoperative diagnoses: Atrial Fibrillation with rapid ventricular rate Postoperative diagnosis: Sinus rhythm, Successful Electrical Cardioversion History: 87 year old lady with persistent atrial fibrillation with RVR. Anesthesia: By Anesthesia services Complications: None Specimen: None Contrast: 0 Flouroscopy: none Procedure Details: The patient was brought the mobile home laborer after informed consent was taken, all the risks and complications were explained including the risk of stroke. Electrical cardioversion was carried out with anesthesia support with propofol. 120 joules of synchronized shock was delivered through external patches which promptly restored Atrial paced rhythm. The patient tolerated the procedure well. Conclusions: 1.Successful Cardioversion. 2.Continue oral anticoagulation and rate controlling agent. 3.Follow up in office in 3-4 weeks. Eloy German MD, FHRS, CCDS Cardiac Electrophysiology Phyllis GERMAN MD Apr 22, 2018 10:19 am
--- NOTE | 2018-04-22 15:29 | Anesthesia-Procedure Note ---
Procedures/Interventions Procedure Start/Stop/Diagnosis Date of Procedure: Apr 22, 2018 Start Time: 09:05 Referring Physician: Maxi Preprocedural Diagnosis: AFib Brief History Called to [facility] lab for scheduled cardioversion of AFib. ASA 3. Brief hx and NPO status verified. IV infusing and O2 per NC applied by RN. Propofol bolus of 40 mg given without complication. VSS. Left pt in care of RN, spont breathing, opening eyes. Stop Time: 09:15 Postprocedural Diagnosis: Afib RAMÍREZ GEORGE CRNA Apr 22, 2018 15:29
--- NOTE | 2018-04-22 15:30 | Anesthesia-General Post-Op ---
MAC Patient Condition Mental Status/LOC: Same as Preop Cardiovascular: Satisfactory Nausea/Vomiting: Absent Respiratory: Satisfactory Pain: Controlled Complications: Absent Post Op Complications Complications None Follow Up Care/Instructions Patient Instructions None needed. Anesthesiology Discharge Order Discharge Order Patient is doing well, no complaints, stable vital signs, no apparent adverse anesthesia problems. No complications reported per nursing. RAMÍREZ GEORGE CRNA Apr 22, 2018 15:29
== END 2018-04-22 10:01 | disposition home or self-care (01) ==
LOC: CATH 08:07
PROVIDERS: ATTEND Internal Medicine Interventional Cardiology
DX: I48.0 Paroxysmal atrial fibrillation (principal); I10 Essential (primary) hypertension; E78.5 Hyperlipidemia, unspecified; M79.89 Other specified soft tissue disorders; R53.83 Other fatigue; Z95.0 Presence of cardiac pacemaker; Z79.01 Long term (current) use of anticoagulants; Z79.899 Other long term (current) drug therapy
CPT/HCPCS: 92960; 93005

== ENCOUNTER 2018-05-03 09:19 | Outpatient (RCR) | payer MEDICARE, BC ==
[2018-05-03 09:39] LABS: BASOPHILS % (AUTO) 0 % (0-10); EOSINOPHILS # (AUTO) 0.1 10^3/uL (0.0-0.3); EOSINOPHILS % (AUTO) 2 % (0-10); HEMATOCRIT 38 % (35-52); HEMOGLOBIN 12.2 G/DL (11.5-16.0); LYMPHOCYTES % (AUTO) 17 % (12-44); MEAN CORPUSCULAR HEMOGLOBIN 29 PG (25-34); MEAN CORPUSCULAR HGB CONC 32 G/DL (32-36); MEAN CORPUSCULAR VOLUME 90 FL (80-99); MEAN PLATELET VOLUME 9.5 FL (7.4-10.4); MONOCYTES # (AUTO) 0.5 X 10^3 (0.0-1.0); MONOCYTES % (AUTO) 8 % (0-12); NEUTROPHILS # (AUTO) 4.1 X 10^3 (1.8-7.8); NEUTROPHILS % (AUTO) 73 % (42-75); PLATELET COUNT 226 10^3/uL (130-400); RED BLOOD COUNT 4.27 10^6/uL (4.35-5.85); RED CELL DISTRIBUTION WIDTH 14.7 % (10.0-14.5); WHITE BLOOD COUNT 5.6 10^3/uL (4.3-11.0)
[2018-05-03 10:00] LABS: ALBUMIN 3.8 GM/DL (3.2-4.5); BILIRUBIN,TOTAL 0.8 MG/DL (0.1-1.0); CALCIUM 8.9 MG/DL (8.5-10.1); CREATININE SERUM 1.26 MG/DL (0.60-1.30); POTASSIUM 3.7 MMOL/L (3.6-5.0); TOTAL PROTEIN 6.1 GM/DL (6.4-8.2)
== END 2018-05-05 | disposition home or self-care (01) ==
LOC: ONC 09:19
PROVIDERS: ATTEND Internal Medicine Hematology & Oncology
DX: C90.00 Multiple myeloma not having achieved remission (principal); N17.9 Acute kidney failure, unspecified; R76.9 Abnormal immunological finding in serum, unspecified; I48.2 Chronic atrial fibrillation; D64.9 Anemia, unspecified; I10 Essential (primary) hypertension; E03.9 Hypothyroidism, unspecified; Z95.0 Presence of cardiac pacemaker; Z79.01 Long term (current) use of anticoagulants; Z79.899 Other long term (current) drug therapy
CPT/HCPCS: 36415; 80053; 82784; 85025; 86334; 99213

== ENCOUNTER → 2018-06-16 | Outpatient (CLI) | payer MEDICARE, BC ==
[~2018-06-16] MED LIST changes: +RT-ALBUTEROL SULF 2.5 MG/3 ML PRE-MIX VIAL INH ONE
[2018-06-16 09:49] LABS: ALBUMIN 3.5 GM/DL (3.2-4.5); BILIRUBIN,DIRECT 0.2 MG/DL (0.0-0.3); BILIRUBIN,INDIRECT 0.3 MG/DL; BILIRUBIN,TOTAL 0.5 MG/DL (0.1-1.0); TOTAL PROTEIN 5.8 GM/DL (6.4-8.2)
== END ==
LOC: RT 09:10
PROVIDERS: ATTEND Internal Medicine Interventional Cardiology
DX: Z51.81 Encounter for therapeutic drug level monitoring (principal); Z79.899 Other long term (current) drug therapy
CPT/HCPCS: 36415; 80076; 84443; 94060; 94726; 94729

== ENCOUNTER 2018-08-02 09:05 | Outpatient (RCR) | payer MEDICARE, BC ==
[2018-07-26 08:36] LABS: BASOPHILS % (AUTO) 1 % (0-10); EOSINOPHILS # (AUTO) 0.1 10^3/uL (0.0-0.3); EOSINOPHILS % (AUTO) 2 % (0-10); HEMATOCRIT 39 % (35-52); HEMOGLOBIN 12.4 G/DL (11.5-16.0); LYMPHOCYTES # (AUTO) 1.2 X 10^3 (1.0-4.0); LYMPHOCYTES % (AUTO) 18 % (12-44); MEAN CORPUSCULAR HEMOGLOBIN 29 PG (25-34); MEAN CORPUSCULAR HGB CONC 32 G/DL (32-36); MEAN CORPUSCULAR VOLUME 91 FL (80-99); MEAN PLATELET VOLUME 9.4 FL (7.4-10.4); MONOCYTES # (AUTO) 0.5 X 10^3 (0.0-1.0); MONOCYTES % (AUTO) 7 % (0-12); NEUTROPHILS # (AUTO) 4.7 X 10^3 (1.8-7.8); NEUTROPHILS % (AUTO) 73 % (42-75); PLATELET COUNT 253 10^3/uL (130-400); RED CELL DISTRIBUTION WIDTH 15.5 % (10.0-14.5); WHITE BLOOD COUNT 6.5 10^3/uL (4.3-11.0)
[2018-07-26 08:53] LABS: ALBUMIN 3.7 GM/DL (3.2-4.5); BILIRUBIN,TOTAL 0.6 MG/DL (0.1-1.0); CALCIUM 9.1 MG/DL (8.5-10.1); CREATININE SERUM 1.4 MG/DL (0.60-1.30); POTASSIUM 4.3 MMOL/L (3.6-5.0)
[2018-07-29 06:49] LABS: IMMUNOFIX PATH REPORT NUMBER Complete (Complete)
[~2018-08-02 09:05] MED LIST changes: -RT-ALBUTEROL SULF 2.5 MG/3 ML PRE-MIX VIAL INH ONE
== END 2018-08-09 | disposition home or self-care (01) ==
LOC: ONC 09:05
PROVIDERS: ATTEND Internal Medicine Hematology & Oncology
DX: C90.00 Multiple myeloma not having achieved remission (principal); N17.9 Acute kidney failure, unspecified; R76.9 Abnormal immunological finding in serum, unspecified; I48.2 Chronic atrial fibrillation; D64.9 Anemia, unspecified; I10 Essential (primary) hypertension; E03.9 Hypothyroidism, unspecified; Z95.0 Presence of cardiac pacemaker; Z79.01 Long term (current) use of anticoagulants; Z79.899 Other long term (current) drug therapy
CPT/HCPCS: 36415; 80053; 82784; 85025; 86334; 99213

== ENCOUNTER 2018-11-02 09:22 | Outpatient (RCR) | payer MEDICARE, BC ==
[2018-08-30 09:38] LABS: CALCIUM 9.2 MG/DL (8.5-10.1); CREATININE SERUM 1.31 MG/DL (0.60-1.30); POTASSIUM 4.3 MMOL/L (3.6-5.0)
[2018-10-25 09:50] LABS: BASOPHILS % (AUTO) 0 % (0-10); EOSINOPHILS # (AUTO) 0.1 10^3/uL (0.0-0.3); EOSINOPHILS % (AUTO) 1 % (0-10); HEMATOCRIT 38 % (35-52); HEMOGLOBIN 12.2 G/DL (11.5-16.0); LYMPHOCYTES % (AUTO) 17 % (12-44); MEAN CORPUSCULAR HEMOGLOBIN 29 PG (25-34); MEAN CORPUSCULAR HGB CONC 32 G/DL (32-36); MEAN CORPUSCULAR VOLUME 92 FL (80-99); MEAN PLATELET VOLUME 9.6 FL (7.4-10.4); MONOCYTES # (AUTO) 0.4 X 10^3 (0.0-1.0); MONOCYTES % (AUTO) 7 % (0-12); NEUTROPHILS # (AUTO) 4.4 X 10^3 (1.8-7.8); NEUTROPHILS % (AUTO) 75 % (42-75); PLATELET COUNT 236 10^3/uL (130-400); RED CELL DISTRIBUTION WIDTH 13.8 % (10.0-14.5); WHITE BLOOD COUNT 5.9 10^3/uL (4.3-11.0)
[2018-10-25 10:07] LABS: ALBUMIN 3.6 GM/DL (3.2-4.5); BILIRUBIN,TOTAL 0.4 MG/DL (0.1-1.0); CALCIUM 8.9 MG/DL (8.5-10.1); CREATININE SERUM 1.49 MG/DL (0.60-1.30); POTASSIUM 4.1 MMOL/L (3.6-5.0); TOTAL PROTEIN 5.9 GM/DL (6.4-8.2)
[2018-10-27 14:07] LABS: IMMUNOFIX PATH REPORT NUMBER Complete (Complete)
== END 2018-11-28 | disposition home or self-care (01) ==
LOC: ONC 09:22
PROVIDERS: ATTEND Internal Medicine Hematology & Oncology
DX: C90.00 Multiple myeloma not having achieved remission (principal); N17.9 Acute kidney failure, unspecified; R76.9 Abnormal immunological finding in serum, unspecified; I48.2 Chronic atrial fibrillation; D64.9 Anemia, unspecified; I10 Essential (primary) hypertension; E03.9 Hypothyroidism, unspecified; Z95.0 Presence of cardiac pacemaker; Z79.01 Long term (current) use of anticoagulants; Z79.899 Other long term (current) drug therapy
CPT/HCPCS: 36415; 80048; 80053; 82784; 85025; 86334; 99213

== ENCOUNTER → 2018-11-22 | Outpatient (CLI) | payer MEDICARE, BC | LOC: CARD 09:20 | PROVIDERS: ATTEND Internal Medicine Interventional Cardiology | DX: I07.1 Rheumatic tricuspid insufficiency (principal); I35.8 Other nonrheumatic aortic valve disorders; E78.5 Hyperlipidemia, unspecified; I12.9 Hypertensive chronic kidney disease with stage 1 through stage 4 chronic kidney disease, or unspecified chronic kidney disease; N18.3 Chronic kidney disease, stage 3 (moderate); I48.1 Persistent atrial fibrillation | CPT/HCPCS: 93306 ==

== ENCOUNTER 2019-01-31 06:38 | Inpatient (IN) | payer MEDICARE, BC ==
[2019-01-31] VITALS (15 sets, daily range): BP systolic 98–180; BP diastolic 43–74
[~2019-01-31] VITALS: Ht 165 cm; Wt 69.3 kg
[~2019-01-31 06:38] MED LIST changes: -BRIM5DRO OS; +BRIM5DRO OU
[2019-01-31] MEDS ORDERED: hydrALAZINE (APESOLINE) 20 MG/ML VIAL IV ONE ×2 (07:00→07:45)
[2019-01-31 07:05] LABS: BASOPHILS % (AUTO) 0 % (0-10); EOSINOPHILS # (AUTO) 0.2 10^3/uL (0.0-0.3); EOSINOPHILS % (AUTO) 3 % (0-10); HEMATOCRIT 37 % (35-52); HEMOGLOBIN 11.9 G/DL (11.5-16.0); LYMPHOCYTES # (AUTO) 0.7 X 10^3 (1.0-4.0); LYMPHOCYTES % (AUTO) 8 % (12-44); MEAN CORPUSCULAR HEMOGLOBIN 30 PG (25-34); MEAN CORPUSCULAR HGB CONC 32 G/DL (32-36); MEAN CORPUSCULAR VOLUME 92 FL (80-99); MEAN PLATELET VOLUME 8.9 FL (7.4-10.4); MONOCYTES # (AUTO) 0.8 X 10^3 (0.0-1.0); MONOCYTES % (AUTO) 9 % (0-12); NEUTROPHILS # (AUTO) 6.6 X 10^3 (1.8-7.8); NEUTROPHILS % (AUTO) 80 % (42-75); PLATELET COUNT 349 10^3/uL (130-400); RED CELL DISTRIBUTION WIDTH 14.1 % (10.0-14.5); WHITE BLOOD COUNT 8.2 10^3/uL (4.3-11.0)
[2019-01-31 07:25] LABS: ALBUMIN 3.6 GM/DL (3.2-4.5); BILIRUBIN,TOTAL 0.5 MG/DL (0.1-1.0); CALCIUM 10.6 MG/DL (8.5-10.1); CREATININE SERUM 1.46 MG/DL (0.60-1.30); MAGNESIUM 1.5 MG/DL (1.6-2.4); POTASSIUM 3.8 MMOL/L (3.6-5.0); TOTAL PROTEIN 7.5 GM/DL (6.4-8.2)
--- NOTE | 2019-01-31 07:39 | ED General ---
General Chief Complaint: Respiratory Problems Stated Complaint: SOA Nursing Triage Note: AMBULATORY TO ED ROOM 5 WITH CO SHORTNESS OF AIR THAT STARTED YESTERDAY MORNING AT APPROX 0500. DENIES PAIN, FEVER, COUGH. NON LABORED BREATHING AT TRIAGE. STATES HX OF AFIB, HTN. INITIAL BP ELEVATED AND PT STATES SHE HAS NOT TAKEN HER MORNING MEDICATIONS. Nursing Sepsis Screen: No Definite Risk Source of Information: Patient, Old Records Exam Limitations: No Limitations History of Present Illness Date Seen by Provider: Jan 31, 2019 Time Seen by Provider: 06:44 Initial Comments This 88-year-old woman is brought to the emergency room by her family today with concerns about shortness of air that started yesterday. Oxygen saturation is 94 percent on room air. She is not in any distress. She is noted to be markedly hypertensive. She has not taken her medications yet this morning. She has a history of atrial fibrillation and has a pacemaker. Review of her chart notes an echocardiogram in November showing an ejection fraction of 55-65 percent, moderate to severe tricuspid regurgitation, pulmonary artery pressure of 48 and aortic sclerosis. She has a prescription for Lasix when necessary which she has not taken recently. She has minimal lower extremity edema. 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 German at [facility] is her rn cardiac rehab, and Dr. Blas is her primary care provider. She also sees Dr. Jacobs in [place] for her history of bladder cancer. Allergies and Home Medications Allergies Coded Allergies: Penicillins (Verified Allergy, Unknown, 06/19/08) Sulfa (Sulfonamide Antibiotics) (Verified Allergy, Unknown, 06/19/08) Home Medications Allopurinol 100 Mg Tablet, 100 MG PO HS, (Reported) Alprazolam 0.5 Mg Tablet, 0.25-0.5 MG PO TID PRN for ANXIETY, (Reported) TAKES 1/2 TO 1 (0.5MG) TABLET Amiodarone HCl 200 Mg Tablet, 200 MG PO DAILY, (Reported) Apixaban 2.5 Mg Tablet, 2.5 MG PO BID@0600,1800 Prescribed by: Phyllis GERMAN on 04/04/17 1053 Brimonidine Tartrate/Timolol 5 Ml Drops, 1 DROP OU BID, (Reported) Carvedilol 12.5 Mg Tablet, 12.5 MG PO DAILY, (Reported) TAKE 1 TAB AM AND 1/2 TAB PM Carvedilol 12.5 Mg Tablet, 6.25 MG PO HS, (Reported) TAKES 1 TAB AM AND 1/2 TAB PM Cholecalciferol (Vitamin D3) 1,000 Unit Tablet, 1,000 UNIT PO HS, (Reported) Diltiazem HCl 180 Mg Cap.er.deg, 360 MG PO DAILY, (Reported) TAKES 2 (180MG) TABS TO EQUAL 360MG DAILY Docusate Sodium 100 Mg Capsule, 100 MG PO BID, (Reported) Duloxetine HCl 30 Mg Capsule.dr, 30 MG PO DAILY, (Reported) Flaxseed Oil 1,000 Mg Capsule, 1,000 MG PO DAILY, (Reported) Furosemide 40 Mg Tablet, 40 MG PO DAILY PRN for SWELLING, (Reported) Hydralazine HCl 50 Mg Tablet, 50 MG PO DAILY, (Reported) TAKES 1 TAB AM AND 1/2 TAB PM Hydralazine HCl 25 Mg Tablet, 25 MG PO HS, (Reported) TAKES 1 TAB AM AND 1/2 TAB PM Hydrocodone/Acetaminophen 1 Each Tablet, 0.5-1 TAB PO Q6H PRN for PAIN-MODERATE, (Reported) Levothyroxine Sodium 25 Mcg Tablet, 12.5 MCG PO DAILY, (Reported) TAKES 1/2 (25MCG) TABLET Patient Home Medication List Home Medication List Reviewed: Yes Review of Systems Review of Systems Constitutional: no symptoms reported EENTM: no symptoms reported Respiratory: see HPI, short of breath Cardiovascular: No chest pain; edema Gastrointestinal: no symptoms reported Genitourinary: frequency : No Musculoskeletal: back pain, joint pain (right knee) Skin: no symptoms reported Psychiatric/Neurological: Anxiety Hematologic/Lymphatic: No Symptoms Reported Immunological/Allergic: no symptoms reported Past Wobjlch-Nnciqx-Ajgyer Hx Past Med/Social Hx: Reviewed and Corrections made Patient Social History 2nd Hand Smoke Exposure: No Recent Foreign Travel: No Contact w/Someone Who Travel: No Recent Infectious Disease Expo: No Recent Hopitalizations: No Physical Abuse: No Sexual Abuse: No Mistreated: No Fear: No Immunizations Up To Date Tetanus Booster (TDap): Unknown Date of Pneumonia Vaccine: May 15, 2013 Date of Influenza Vaccine: Feb 18, 2018 Seasonal Allergies Seasonal Allergies: No Past Medical History Surgeries: Yes Abdominal, Hysterectomy, Nephrectomy (partial for benign tumor resection), Pacemaker Respiratory: No Cardiac: Yes (pacemaker) Atrial Fibrillation, Hypertension, Irregular Heartbeat, Valvular Heart Disease (moderate to severe tricuspid regurgitation, aortic sclerosis) Neurological: No Reproductive Disorders: Yes (BARTHOLIN CYSTS X 2 WITH SURGERY FOR BOTH) Genitourinary: Yes Bladder Infection, Renal Failure Gastrointestinal: No Musculoskeletal: No Endocrine: Yes Hypothyroidsim HEENT: Yes Cataract Hearing Impairment: Denies Cancer: Yes Bladder Did You Recieve Any Treatments: Yes What Type of Treatment Did You: Surgical Intervention Psychosocial: Yes Sleep Difficulties, Anxiety Integumentary: Yes (PEREZ FROM TAKING COUMADIN) Blood Disorders: No Adverse Reaction/Blood Tranf: No Family Medical History Patient reports no known family medical history. Heart Disease, Hypertension Physical Exam Vital Signs Vital Signs - First Documented 01/31/19 01/31/19 06:46 09:14 Temp 37.1 Pulse 73 Resp 16 B/P (MAP) 249/96 (146) Pulse Ox 96 O2 Delivery Nasal Cannula O2 Flow Rate 2.00 Capillary Refill : Less Than 3 Seconds Height, Weight, BMI Height: 5'5.00" Weight: 148lbs. 0.0oz. 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01 L 4.35-5.85 10^6/uL Hemoglobin 11.9 11.5-16.0 G/DL Hematocrit 37 35-52 % Mean Corpuscular Volume 92 80-99 FL Mean Corpuscular Hemoglobin 30 25-34 PG Mean Corpuscular Hemoglobin Concent 32 32-36 G/DL Red Cell Distribution Width 14.1 10.0-14.5 % Platelet Count 349 130-400 10^3/uL Mean Platelet Volume 8.9 7.4-10.4 FL Neutrophils (%) (Auto) 80 H 42-75 % Lymphocytes (%) (Auto) 8 L 12-44 % Monocytes (%) (Auto) 9 0-12 % Eosinophils (%) (Auto) 3 0-10 % Basophils (%) (Auto) 0 0-10 % Neutrophils # (Auto) 6.6 1.8-7.8 X 10^3 Lymphocytes # (Auto) 0.7 L 1.0-4.0 X 10^3 Monocytes # (Auto) 0.8 0.0-1.0 X 10^3 Eosinophils # (Auto) 0.2 0.0-0.3 10^3/uL Basophils # (Auto) 0.0 0.0-0.1 10^3/uL Sodium Level 125 *L 135-145 MMOL/L Potassium Level 3.8 3.6-5.0 MMOL/L Chloride Level 94 L 98-107 MMOL/L Carbon Dioxide Level 23 21-32 MMOL/L Anion Gap 8 5-14 MMOL/L Blood Urea Nitrogen 27 H 7-18 MG/DL Creatinine 1.46 H 0.60-1.30 MG/DL Estimat Glomerular Filtration Rate 34 BUN/Creatinine Ratio 18 Glucose Level 97 70-105 MG/DL Uric Acid 8.7 H 2.6-7.2 MG/DL Calcium Level 10.6 H 8.5-10.1 MG/DL Corrected Calcium 10.9 H 8.5-10.1 MG/DL Magnesium Level 1.5 L 1.6-2.4 MG/DL Total Bilirubin 0.5 0.1-1.0 MG/DL Aspartate Amino Transf (AST/SGOT) 12 5-34 U/L Alanine Aminotransferase (ALT/SGPT) 16 0-55 U/L Alkaline Phosphatase 66 40-136 U/L B-Type Natriuretic Peptide 400.7 H <100.0 PG/ML Total Protein 7.5 6.4-8.2 GM/DL Albumin 3.6 3.2-4.5 GM/DL Thyroid Stimulating Hormone (TSH) 2.59 0.35-4.94 UIU/ML Free Thyroxine 1.46 0.70-1.48 NG/DL Urine Color YELLOW Urine Clarity CLEAR Urine pH 6.5 5-9 Urine Specific [place] 1.015 L 1.016-1.022 Urine Protein 4+ NEGATIVE Urine Glucose (UA) NEGATIVE NEGATIVE Urine Ketones NEGATIVE NEGATIVE Urine Nitrite NEGATIVE NEGATIVE Urine Bilirubin NEGATIVE NEGATIVE Urine Urobilinogen NORMAL NORMAL MG/DL Urine Leukocyte Esterase NEGATIVE NEGATIVE Urine RBC (Auto) NEGATIVE NEGATIVE Urine RBC NONE /HPF Urine WBC RARE /HPF Urine Squamous Epithelial Cells 5-10 /HPF Urine Crystals NONE /LPF Urine Bacteria TRACE /HPF Urine Casts NONE /LPF Urine Mucus NEGATIVE /LPF Urine Culture Indicated NO My Orders Orders - PHAM BURNETTE MD BNP (01/31/19 06:52) Cbc With Automated Diff (01/31/19 06:52) Comprehensive Metabolic Panel (01/31/19 06:52) Magnesium (01/31/19 06:52) Thyroid Stimulating Hormone (01/31/19 06:52) Ekg Tracing (01/31/19 06:52) Monitor-Rhythm Ecg Trace Only (01/31/19 06:52) Free T4 (Free Thyroxine) (01/31/19 06:52) Hydralazine Injection (Apresoline Inject (01/31/19 07:00) Chest 1 View, Ap/Pa Only (01/31/19 06:54) Hydralazine Injection (Apresoline Inject (01/31/19 07:45) Alprazolam Tablet (Xanax Tablet) (01/31/19 07:45) Apixaban Tablet (Eliquis Tablet) (01/31/19 07:45) Diltiazem Cd 24 Hr Capsule (Cardizem Cd (01/31/19 07:45) Carvedilol Tablet (Coreg Tablet) (01/31/19 07:45) Hydrocodone/Apap 5/325 Tablet (Lortab 5 (01/31/19 08:00) Fentanyl Injection (Sublimaze Injection (01/31/19 08:00) Hydralazine Tablet (Apresoline Tablet) (01/31/19 08:00) Duloxetine Capsule (Cymbalta Capsule) (01/31/19 08:00) Amiodarone Tablet (Cordarone Tablet) (01/31/19 08:00) Uric Acid (01/31/19 08:05) Ua Culture If Indicated (01/31/19 08:27) Medications Given in ED Current Medications Medications Dose Ordered Sig/Dung Route Start Time Stop Time Status Last Admin Dose Admin Acetaminophen/ Hydrocodone Bitart 2 tab ONCE ONCE PO 01/31/19 08:00 01/31/19 08:01 DC 01/31/19 08:12 2 TAB Alprazolam 0.5 mg ONCE ONCE PO 01/31/19 07:45 01/31/19 07:46 DC 01/31/19 07:51 0.5 MG Amiodarone HCl 200 mg ONCE ONCE PO 01/31/19 08:00 01/31/19 08:02 DC 01/31/19 08:11 200 MG Apixaban 2.5 mg ONCE ONCE PO 01/31/19 07:45 01/31/19 07:46 DC 01/31/19 08:14 2.5 MG Carvedilol 12.5 mg ONCE ONCE PO 01/31/19 07:45 01/31/19 07:46 DC 01/31/19 08:15 12.5 MG Diltiazem HCl 360 mg ONCE ONCE PO 01/31/19 07:45 01/31/19 07:46 DC 01/31/19 08:14 360 MG Duloxetine HCl 30 mg ONCE ONCE PO 01/31/19 08:00 01/31/19 08:02 DC 01/31/19 08:10 30 MG Fentanyl Citrate 25 mcg ONCE ONCE IVP 01/31/19 08:00 01/31/19 08:01 DC 01/31/19 08:15 25 MCG Hydralazine HCl 10 mg ONCE ONCE IV 01/31/19 07:00 01/31/19 07:01 DC 01/31/19 07:02 10 MG Hydralazine HCl 20 mg ONCE ONCE IV 01/31/19 07:45 01/31/19 07:46 DC 01/31/19 07:35 20 MG Hydralazine HCl 50 mg ONCE ONCE PO 01/31/19 08:00 01/31/19 08:01 DC 01/31/19 08:12 50 MG Vital Signs/I&O 01/31/19 01/31/19 01/31/19 01/31/19 06:46 09:14 09:30 09:59 Temp 37.1 37.42370 Pulse 73 63 65 73 Resp 16 18 16 B/P (MAP) 249/96 (146) 129/51 180/67 (104) 163/57 Pulse Ox 96 O2 Delivery Nasal Cannula Room Air O2 Flow Rate 2.00 01/31/19 01/31/19 01/31/19 01/31/19 10:00 11:00 12:00 12:34 Pulse 64 66 60 60 Resp 26 28 14 B/P (MAP) 165/70 (101) 163/64 (97) 159/66 (97) Pulse Ox 95 90 94 O2 Delivery Room Air Room Air Room Air 01/31/19 01/31/19 13:00 14:00 Pulse 60 63 Resp 36 B/P (MAP) 167/61 (96) 163/74 (103) Pulse Ox 91 93 O2 Delivery Room Air Room Air Capillary Refill : Less Than 3 Seconds Blood Pressure Mean: 146 Progress Note #1: Time: 08:02 Progress Note Patient was found to be markedly hypertensive during assessment. She was given hydralazine 10 mg IV which seemed to have no effect on her blood pressure. An additional 20 mg was administered by IV route. She continues to have systolic blood pressures greater than 200. The majority of her morning medications have now been ordered. I discussed the case with Dr. German. He wishes to hold off on furosemide at this point in time since there was no evidence of heart failure on the chest x-ray and patient has already hyponatremic. He suggested waiting 30 minutes after morning medications are given and reassess. If still significantly hypertensive, she may need admission to the ICU with a nitro drip for Cardene drip. Patient's anxiety was also treated with alprazolam and pain is being treated with fentanyl and hydrocodone. Patient does state that she feels anxious. Progress Note #2: Time: 08:56 Progress Note 30 minutes after medications were received blood pressure was 181/65. I discussed with Dr. German again who recommended a nitroglycerin drip to keep systolic blood pressure around 160. Patient will be admitted to the ICU. She did have a decrease in oxygen saturation on room air after receiving her medications. Supplemental oxygen was applied. Case was again discussed with Dr. Blas who agrees with admission. We will start normal saline at 50 mL per hour to gradually replace her sodium. I discussed CODE STATUS with patient during initial assessment. She elects a DO NOT RESUSCITATE status. UA is pending. Patient reported some urinary frequency. ECG Initial ECG Impression Date: Jan 31, 2019 Initial ECG Impression Time: 07:06 Initial ECG Rate: 65 Comment Atrial paced rhythm. Left axis deviation by automated read. No abnormal intervals. No ST elevation or depression. Diagnostic Imaging Diagonstic Imaging: Xray Plain Films/CT/US/NM/MRI: chest Comments Chest x-ray viewed by me and compared with prior. Report reviewed. See report below: NAME: DUYEN IBARRA [facility] REC#: [id number] PT STATUS: REG ER : 1929 PHYSICIAN: PHAM BURNETTE MD ADMIT DATE: 01/31/19/ER Draft Date of Exam:01/31/19 CHEST 1 VIEW, AP/PA ONLY INDICATION: Shortness of breath FINDINGS: Pacemaker device unremarkable. Heart size upper limits but stable. No infiltrate, effusion or pneumothorax. No change from study of 03/06/2018. IMPRESSION: Stable chronic findings. Dictated on workstation # [id number] Dict: 01/31/19 0737 Trans: 01/31/19 0739 [facility] [id number] Interpreted by: ESA KING Departure Communication (Admissions) Time/Spoke to Admitting Phy: 08:20 Dr. Blas Time/Spoke to Consulting Phy: 07:55 Dr. German Impression Primary Impression: Accelerated hypertension Additional Impressions: Hyponatremia Dyspnea Qualified Codes: R06.00 - Dyspnea, unspecified Anxiety Chronic pain Qualified Codes: G89.29 - Other chronic pain Hypomagnesemia Disposition: ADMITTED INPATIENT Condition: Improved Admissions Decision to Admit Reason: Admit from ER (General) Decision to Admit/Date: Jan 31, 2019 Time/Decision to Admit Time: 07:35 Departure-Patient Inst. Referrals: RAH BLAS MD (PCP/Family) Primary Care Physician Copy Copies To 1: RAH BLAS MD Copies To 2: Phyllis GERMAN MD, JOSHUA T MD Jan 31, 2019 07:39
--- NOTE | 2019-01-31 07:39 | Diagnostic Imaging Report ---
INDICATION: Shortness of breath FINDINGS: Pacemaker device unremarkable. Heart size upper limits but stable. No infiltrate, effusion or pneumothorax. No change from study of 03/06/2018. IMPRESSION: Stable chronic findings. Dictated by: Dictated on workstation # [id number]
--- NOTE | 2019-01-31 07:42 | NUR ---
med list to chart.
[2019-01-31] MEDS ORDERED: ALPRAZolam 0.5 MG (XANAX) TAB PO ONE (07:45)
[2019-01-31] MEDS ORDERED: DILTIAZEM 180 MG (CARDIZEM CD) CAP PO ONE (07:45)
[2019-01-31] MEDS ORDERED: CARVEDILOL 12.5 MG (COREG) TABLET PO ONE (07:45)
[2019-01-31] MEDS ORDERED: APIXABAN 2.5 MG (ELIQUIS) TABLET PO ONE (07:45)
[2019-01-31 07:46] LABS: FREE T4 (FREE THYROXINE) 1.46 NG/DL (0.70-1.48)
[2019-01-31] MEDS ORDERED: DULoxetine 30 MG (CYMBALTA) CAP PO ONE (08:00)
[2019-01-31] MEDS ORDERED: HYDROcodone/APAP 5 MG/325 MG (LORTAB) TAB PO ONE (08:00)
[2019-01-31] MEDS ORDERED: AMIODARONE 200 MG (CORDARONE) TAB PO ONE (08:00)
[2019-01-31] MEDS ORDERED: fentaNYL INJECTION 100 MCG/2 ML AMP IVP ONE (08:00)
[2019-01-31] MEDS ORDERED: hydrALAZINE (APRESOLINE) 25 MG TAB PO ONE (08:00)
[2019-01-31 08:46] LABS: BILIRUBIN,URINE NEGATIVE (NEGATIVE); CLARITY,URINE CLEAR; COLOR,URINE YELLOW; GLUCOSE, URINE (UA) NEGATIVE (NEGATIVE); KETONES,URINE NEGATIVE (NEGATIVE); LEUKOCYTE ESTERASE ,URINE NEGATIVE (NEGATIVE); NITRITE,URINE NEGATIVE (NEGATIVE); PH,URINE 6.5 (5-9); PROTEIN,URINE 4+ (NEGATIVE); UROBILINOGEN,URINE NORMAL (NORMAL)
[2019-01-31 09:06] LABS: BACTERIA,URINE TRACE /HPF; WBC,URINE RARE /HPF
[2019-01-31] MEDS ORDERED: MAGNESIUM 1 GM/D5W 100 ML IVPB IV NR (09:40)
[2019-01-31] MEDS ORDERED: LORazepam 0.5 MG (ATIVAN) TABLET PO PRN (09:45)
[2019-01-31] MEDS: NITROGLYCERIN DRIP 25 MG/250 ML D5W (PRE-MIX) IV SCH (09:59)
[2019-01-31] MEDS: NS IV 1000 ML 1,000 ML IV SCH (10:22)
--- NOTE | 2019-01-31 11:00 | NUR ---
DR SAEED ON FLOOR AND NEW ORDERS RECEIVED TO GIVE LASIX 40MG IV X ONE DOSE.
[2019-01-31] MEDS ORDERED: FUROSEMIDE 40 MG/4 ML INJ (LASIX) IVP NR (11:02)
[2019-01-31] MEDS ORDERED: HYDR-3924 PO (11:22)
[2019-01-31] MEDS ORDERED: DULO30CA49 PO (11:22)
[2019-01-31] MEDS ORDERED: ALLO100T PO (11:22)
[2019-01-31] MEDS ORDERED: DILT180C48 PO (11:22)
[2019-01-31] MEDS ORDERED: AMIO200T4 PO (11:22)
[2019-01-31] MEDS ORDERED: HYDR-3923 PO (11:22)
[2019-01-31] MEDS ORDERED: CARV12.52 PO (11:32)
--- NOTE | 2019-01-31 11:39 | NUR ---
SPOKE WITH PT WELL GOING THRU THE EXT MED HISTORY TO COMPLETE THE MED REC. PT WAS ABLE TO TELL ME HER MEDS AND ALSO HOW SHE TAKES THEM. CARVEDILOL: FROM THE EXT MED HISTORY IT SHOW THIS SHOULD BE 1 TAB BID, BUT PT SAYS SHE IS TAKING 1 TAB AM AND 1/2 TAB HS. HYDRALAZINE: SAME THE NOTE ABOVE, MED REC SHOWS IT SHOULD BE 1 TAB BID PT SHE TAKES 1 TAB AM AND 1/2 TAB HS. THE FOLLOWING MEDS ARE PRN: ALPRAZOLAM HYDROCODONE FUROSEMIDE OTC MEDS: VITAMIN D3: 1 DAILY COLACE: 1 TAB BID FLAXSEED: 1 DAILY
--- NOTE | 2019-01-31 15:11 | Consultation-Cardiology ---
HPI-Cardiology Cardiology Consultation: Date of Consultation 01/31/19 Date of Admission Attending Physician Jena Blas MD Admitting Physician Jena Blas MD Consulting Physician Phyllis GERMAN MD HPI: Time Seen by a Provider: 11:00 Chief Complaint: Severely elevated blood pressure This is a 88-year-old lady who follows with me in the office for the last few years. She has history of persistent atrial fibrillation and has a pacemaker. She has history of hypertension. She presents with a complaint of shortness of breath but was found to be significantly hypertensive. Her systolic blood pressure was over 200 mmHg. She also has moderate chronic kidney disease and follows with nephrology as well. She denies any chest pain, syncope, near- syncope or palpitations. She does take Lasix when necessary however has not taken Lasix recently. She denies any significant lower extremity swelling or recent weight gain. Review of Systems-Cardiology Review of Systems Constitutional: As described under HPI; No As described under HPI, No no s ymptoms reported, No chills, No fever, No lightheadedness Eyes: No As described under HPI, No no symptoms reported, No blindness, No blurred vision, No contact lenses, No drainage, No decreased acuity, No foreign body sensation, No pain, No vision change Ears/Nose/Throat: No As described under HPI, No no symptoms reported, No chronic hearing loss, No ear discharge, No ear pain, No nasal drainage, No ulcerations Respiratory: No no symptoms reported; As described under HPI; No As described under HPI, No cough, No orthopnea; shortness of breath; No SOB with excertion Cardiovascular: No no symptoms reported; As described under HPI; No As described under HPI, No chest pain, No edema, No irregular heart rate, No lightheadedness, No palpitations Gastrointestinal: No no symptoms reported, No As described under HPI, No abdomen distended, No abdominal pain, No blood streaked bowels, No constipation, No diarrhea, No nausea, No vomiting, No stool coloration changes Genitourinary: No As described under HPI, No burning, No dysuria, No discharge, No frequency, No flank pain, No hematuria, No urgency : No Skin: No rash, No skin related problems, No ulcerations Psychiatric/Neurological: No anxiety, No depression, No seizure, No focal weakness, No syncope Hematologic: No bleeding abnormalities EID-Ifawvv-Qsjdzv Hx Patient Social History Alcohol Use: Denies Use Recreational Drug Use: No Smoking Status: Never a Smoker 2nd Hand Smoke Exposure: No Recent Foreign Travel: No Recent Infectious Disease Expo: No Hospitalization with Isolation: Denies Immunizations Up To Date Tetanus Booster (TDap): Unknown Date of Pneumonia Vaccine: May 15, 2013 Date of Influenza Vaccine: Feb 18, 2018 Past Medical History PMH As described under Assessment. Family Medical History Family History: Patient reports no known family medical history. Allergies and Home Medications Allergies Coded Allergies: Penicillins (Verified Allergy, Unknown, 06/19/08) Sulfa (Sulfonamide Antibiotics) (Verified Allergy, Unknown, 06/19/08) Home Medications Allopurinol 100 Mg Tablet, 100 MG PO HS, (Reported) Alprazolam 0.5 Mg Tablet, 0.25-0.5 MG PO TID PRN for ANXIETY, (Reported) TAKES 1/2 TO 1 (0.5MG) TABLET Amiodarone HCl 200 Mg Tablet, 200 MG PO DAILY, (Reported) Apixaban 2.5 Mg Tablet, 2.5 MG PO BID@0600,1800 Prescribed by: Phyllis GERMAN on 04/04/17 1053 Brimonidine Tartrate/Timolol 5 Ml Drops, 1 DROP OU BID, (Reported) Carvedilol 12.5 Mg Tablet, 12.5 MG PO DAILY, (Reported) TAKE 1 TAB AM AND 1/2 TAB PM Carvedilol 12.5 Mg Tablet, 6.25 MG PO HS, (Reported) TAKES 1 TAB AM AND 1/2 TAB PM Cholecalciferol (Vitamin D3) 1,000 Unit Tablet, 1,000 UNIT PO HS, (Reported) Diltiazem HCl 180 Mg Cap.er.deg, 360 MG PO DAILY, (Reported) TAKES 2 (180MG) TABS TO EQUAL 360MG DAILY Docusate Sodium 100 Mg Capsule, 100 MG PO BID, (Reported) Duloxetine HCl 30 Mg Capsule.dr, 30 MG PO DAILY, (Reported) Flaxseed Oil 1,000 Mg Capsule, 1,000 MG PO DAILY, (Reported) Furosemide 40 Mg Tablet, 40 MG PO DAILY PRN for SWELLING, (Reported) Hydralazine HCl 50 Mg Tablet, 50 MG PO DAILY, (Reported) TAKES 1 TAB AM AND 1/2 TAB PM Hydralazine HCl 25 Mg Tablet, 25 MG PO HS, (Reported) TAKES 1 TAB AM AND 1/2 TAB PM Hydrocodone/Acetaminophen 1 Each Tablet, 0.5-1 TAB PO Q6H PRN for PAIN-MODERATE, (Reported) Levothyroxine Sodium 25 Mcg Tablet, 12.5 MCG PO DAILY, (Reported) TAKES 1/2 (25MCG) TABLET Patient Home Medication List Home Medication List Reviewed: Yes Physical Exam-Cardiology Physical Exam Vital Signs/I&O 02/01/19 02/01/19 02/01/19 02/01/19 05:00 06:00 07:00 07:00 Pulse 60 60 60 60 Resp 18 24 12 B/P (MAP) 158/59 (92) 164/68 (100) 188/75 (112) Pulse Ox 88 91 92 O2 Delivery Nasal Cannula Nasal Cannula Nasal Cannula O2 Flow Rate 2.00 2.00 2.00 02/01/19 02/01/19 02/01/19 02/01/19 08:00 08:31 08:45 09:00 Temp 37.28834 Pulse 60 60 60 Resp 16 16 14 B/P (MAP) 197/85 (122) 249/110 157/70 (99) Pulse Ox 92 92 90 O2 Delivery Nasal Cannula Nasal Cannula Nasal Cannula Nasal Cannula O2 Flow Rate 2.00 2.00 2.00 2.00 02/01/19 02/01/19 02/01/19 02/01/19 10:00 11:00 12:06 12:12 Temp 36.8 Pulse 60 60 60 Resp 20 10 13 B/P (MAP) 128/52 (77) 153/68 (96) 164/70 (101) Pulse Ox 91 91 93 O2 Delivery Nasal Cannula Nasal Cannula Nasal Cannula O2 Flow Rate 2.00 2.00 2.00 02/01/19 02/01/19 02/01/19 02/01/19 12:29 13:00 14:00 15:00 Pulse 60 60 60 60 Resp 31 23 B/P (MAP) 153/70 (97) 163/65 (97) 172/72 (105) Pulse Ox 90 92 O2 Delivery Nasal Cannula Nasal Cannula Nasal Cannula O2 Flow Rate 2.00 2.00 2.00 02/01/19 16:05 Temp 36.8 Pulse 61 Resp 20 B/P (MAP) 170/91 (117) Pulse Ox 91 02/01/19 00:00 Intake Total 540 ml Output Total 950 ml Balance -410 ml Capillary Refill : Less Than 3 Seconds Constitutional: appears stated age, AAO x 3; No apparent distress; well- developed, well-nourished HEENT: PERRL; No discharge; hearing is well preserved, oral hygience is good; No ulceration, No xanthelasmas are seen Neck: No carotid bruit; carotid pulses are 2 + bilaterally Respiratory: chest is bilaterally symmetric, lungs clear to auscultation Cardiovascular: regular rate-rhythm, S1 and S2, systolic murmur Gastrointestinal: soft, round, audible bowel sounds; No spleenomegaly Rectal: deferred Extremities: normal range of motion, non-tender, normal inspection; No clubbing, No cyanosis; no lower extremity edema bilateral; No significant edema Neurologic/Psychiatric: no motor/sensory deficits, alert, normal mood/affect, oriented x 3, power is 5/5 both on sides Skin: normal color, warm/dry; No rash, No ulcerations Data Review Labs Laboratory Tests 02/01/19 07:26: White Blood Count 7.9, Red Blood Count 3.66L, Hemoglobin 11.1L, Hematocrit 34L, Mean Corpuscular Volume 93, Mean Corpuscular Hemoglobin 30, Mean Corpuscular Hemoglobin Concent 33, Red Cell Distribution Width 13.9, Platelet Count 319, Mean Platelet Volume 9.2, Sodium Level 138, Potassium Level 4.2, Chloride Level 105, Carbon Dioxide Level 24, Anion Gap 9, Blood Urea Nitrogen 27H, Creatinine 1.50H, Estimat Glomerular Filtration Rate 33, BUN/Creatinine Ratio 18, Glucose Level 101, Calcium Level 9.6, Corrected Calcium 10.2H, Total Bilirubin 0.4, Aspartate Amino Transf (AST/SGOT) 9, Alanine Aminotransferase (ALT/SGPT) 10, Alkaline Phosphatase 70, B-Type Natriuretic Peptide 323.0H, Total Protein 6.2L, Albumin 3.3 Microbiology 01/31/19 MRSA Screen - Final, Complete MRSA not isolated ECG Impression ECG Comment Atrial paced rhythm. A/P-Cardiology Assessment/Admission Diagnosis Severe hypertension, Persistent atrial fibrillation, Permanent pacemaker, Moderate chronic kidney disease, Mild acute on chronic diastolic dysfunction, Pulmonary hypertension, Moderate to severe tricuspid regurgitation. Plan Severe hypertension, nitroglycerin infusion. Start outpatient by mouth medication. Persistent atrial fibrillation, atrial paced rhythm. Continue amiodarone. Continue oral anticoagulation. Permanent pacemaker, no acute issues. Moderate chronic kidney disease, follows with nephrology as an outpatient. Mild acute on chronic diastolic dysfunction, BNP is mildly elevated. No significant florid congestive heart failure on examination. Will give one dose of Lasix IV 40 mg. Pulmonary hypertension, follow clinically. Moderate to severe tricuspid regurgitation. No acute issues. Thank you for your consultation. Please call me if you have any questions. Eloy German MD, FACP, FACC, FSCAI, FHRS, CCDS Interventional Cardiology Cardiac Electrophysiology Vascular Medicine and Endovascular Interventions Phyllis GERMAN MD Jan 31, 2019 15:11
[2019-01-31] MEDS: HYDROcodone/APAP 10 MG/325 MG (LORTAB) TAB PO PRN ×2 (15:32→21:38)
--- NOTE | 2019-01-31 16:38 | NUR ---
DR ANGELES IN TO SEE PATIENT, NEW ORDERS RECEIVED.
[2019-01-31] MEDS ORDERED: FUROSEMIDE 40 MG (LASIX) TAB PO PRN (16:45)
[2019-01-31] MEDS ORDERED: HYDROcodone/APAP 10 MG/325 MG (LORTAB) TAB PO PRN (16:45)
--- NOTE | 2019-01-31 16:48 | History & Physical ---
History of Present Illness History of Present Illness Reason for visit/HPI PT IS AN 88 Y/O FEMALE WHO SI WELL KNOWN TO ME FROM CLINIC. SHE PRESENTED TO THE HOSPITAL AFTER HAVING SEVERAL DAYS OF FEELING POORLY, AND THE DAY BEFORE ADMISSION SHE STARTED TO HAVE SHORTNESS OF BREATH. sHE DENIES CHEST PAIN, ABDOMINAL PAIN, URINARY URGENCY, OR FOUL SMELLING URINE. SHE DENIES DIZZINESS, HAS HAD A HEADACHE SINCE STARTING ON THE NITRO DRIP. Date of Admission Jan 31, 2019 at 09:01 Time Seen by a Provider: 16:40 I consulted on this patient on 01/31/19 16:48 Attending Physician Rah Blas MD Admitting Physician Rah Blas MD Consult CARDIOLOGY Allergies and Home Medications Allergies Coded Allergies: Penicillins (Verified Allergy, Unknown, 06/19/08) Sulfa (Sulfonamide Antibiotics) (Verified Allergy, Unknown, 06/19/08) Home Medications Allopurinol 100 Mg Tablet, 100 MG PO HS, (Reported) Alprazolam 0.5 Mg Tablet, 0.25-0.5 MG PO TID PRN for ANXIETY, (Reported) TAKES 1/2 TO 1 (0.5MG) TABLET Amiodarone HCl 200 Mg Tablet, 200 MG PO DAILY, (Reported) Apixaban 2.5 Mg Tablet, 2.5 MG PO BID@0600,1800 Prescribed by: Phyllis SAEED on 04/04/17 1053 Brimonidine Tartrate/Timolol 5 Ml Drops, 1 DROP OU BID, (Reported) Carvedilol 12.5 Mg Tablet, 12.5 MG PO BID Prescribed by: RAH BLAS on 02/04/19 1003 Cholecalciferol (Vitamin D3) 1,000 Unit Tablet, 1,000 UNIT PO HS, (Reported) Diltiazem HCl 180 Mg Cap.er.deg, 360 MG PO DAILY, (Reported) TAKES 2 (180MG) TABS TO EQUAL 360MG DAILY Docusate Sodium 100 Mg Capsule, 100 MG PO BID, (Reported) Duloxetine HCl 30 Mg Capsule.dr, 30 MG PO DAILY, (Reported) Flaxseed Oil 1,000 Mg Capsule, 1,000 MG PO DAILY, (Reported) Furosemide 40 Mg Tablet, 40 MG PO DAILY PRN for SWELLING, (Reported) Hydralazine HCl 25 Mg Tablet, 100 MG PO BID take at 0600 and 2200 Prescribed by: RAH BLAS on 02/04/19 1003 Hydralazine HCl 25 Mg Tablet, 50 MG PO UD take 1/2 pill at 1200 and 1 tab at 1700 Prescribed by: RAH BLAS on 02/04/19 1003 Hydrocodone/Acetaminophen 1 Each Tablet, 0.5-1 TAB PO Q6H PRN for PAIN-MODERATE, (Reported) Levothyroxine Sodium 25 Mcg Tablet, 12.5 MCG PO DAILY, (Reported) TAKES 1/2 (25MCG) TABLET Patient Home Medication List Home Medication List Reviewed: Yes Past Blhjxbu-Fvaugp-Xnbfkh Hx Past Med/Social Hx: Reviewed Nursing Past Med/Soc Hx, Reviewed and Corrections made Patient Social History Marrital Status: Living Status: LIVES AT HOME ALONE, SON IN , ONE SON DAUGHTERS LIVE LOCALLY 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[employer]) Alcohol Use: Denies Use Recreational Drug Use: No Smoking Status: Never a Smoker 2nd Hand Smoke Exposure: No Physical Abuse Screen: No Sexual Abuse: No Recent Foreign Travel: No Contact w/other who traveled: No Recent Hopitalizations: No Recent Infectious Disease Expo: No Immunizations Up To Date Tetanus Booster (TDap): Unknown Date of Pneumonia Vaccine: May 15, 2013 Date of Influenza Vaccine: Feb 18, 2018 Seasonal Allergies Seasonal Allergies: No Past Medical History Surgeries: Abdominal, Hysterectomy, Nephrectomy (partial for benign tumor resection), Pacemaker Cardiac: Atrial Fibrillation, Hypertension, Irregular Heartbeat, Valvular Heart Disease (moderate to severe tricuspid regurgitation, aortic sclerosis) Reproductive: Yes (BARTHOLIN CYSTS X 2 WITH SURGERY FOR BOTH) Genitourinary: Bladder Infection, Renal Failure Endocrine: Hypothyroidsim HEENT: Cataract Hearing Impairment: Denies Cancer: Bladder Did You Recieve Any Treatments: Yes What Type of Treatment Did You: Surgical Intervention Psychosocial: Sleep Difficulties, Anxiety History of Blood Disorders: No Adverse Reaction to Blood Ho: No Family History Reviewed and Corrections made Patient reports no known family medical history. 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) Review of Systems Constitutional: No chills, No fever; malaise, weakness EENTM: No vision loss, No hoarseness, No throat pain Respiratory: No cough, No dyspnea on exertion, No short of breath Cardiovascular: No chest pain, No palpitations Gastrointestinal: No constipation, No diarrhea, No loss of appetite Genitourinary: no symptoms reported Musculoskeletal: muscle weakness Skin: no symptoms reported Psychiatric/Neurological: Denies Anxiety, Denies Depressed; Weakness All Other Systems Reviewed Negative Unless Noted: Yes Physical Exam Vital Signs Vital Signs - First Documented 01/31/19 01/31/19 06:46 09:14 Temp 37.1 Pulse 73 Resp 16 B/P (MAP) 249/96 (146) Pulse Ox 96 O2 Delivery Nasal Cannula O2 Flow Rate 2.00 Capillary Refill : Less Than 3 Seconds Height, Weight, BMI Height: 5'5.00" Weight: 148lbs. 0.0oz. 67.553122nv; 23.28 BMI Method:Stated General Appearance: No Apparent Distress, WD/WN Eyes: Bilateral Eye Normal Inspection, Bilateral Eye PERRL, Bilateral Eye EOMI HEENT: PERRL/EOMI, Pharynx Normal Neck: Full Range of Motion, Non Tender, Supple Respiratory: Chest Non Tender, Decreased Breath Sounds (DECREASED AT BASES) Cardiovascular: Regular Rate, Rhythm, Normal Peripheral Pulses Gastrointestinal: Normal Bowel Sounds, No Pulsatile Mass, Non Tender, Soft Rectal: Deferred Extremity: Normal Capillary Refill, No Calf Tenderness, No Pedal Edema Neurologic/Psychiatric: Alert, Oriented x3, No Motor/Sensory Deficits, Normal Mood/Affect, entry level buyer II-XII Norm as Tested Skin: Normal Color, Warm/Dry Lymphatic: No Adenopathy Assessment/Plan Assessment and Plan HYPERTENSIVE EMERGENCY DYSPNEA ON EXERTION 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 CONSULT HAS BEEN PLACED TO CARDIOLOGY DYSPNEA ON EXERTION - OXYGEN VIA NASAL CANNULA, DYSPNEA SHOULD IMPROVE WITH BLOOD PRESSURE CONTROL STAGE 3 CHRONIC RENAL FAILURE - RENAL ADJUSTMENT OF MEDICATIONS HYPOTHYROIDISM - RESUME HOME REGIMEN OF LEVOTHYROXINE DEPRESSION - RESUMED CYMBALTA AND PRN ANXIOLYTIC CHRONIC BACK PAIN - PRN HYDROCODONE Admission Diagnosis HYPERTENSIVE EMERGENCY DYSPNEA ON EXERTION CHRONIC HYPERTENSION STAGE 3 CHRONIC RENAL FAILURE HYPOTHYROIDISM DEPRESSION CHRONIC BACK PAIN Admission Status: Inpatient Order (span 2 midnights) Reason for Inpatient Admission: INPT ADMISSION FOR HYPERTENSIVE EMERGENCY - WILL REQUIRE AT LEAST 72 HOURS OF ADMISSION FOR ADEQUTE CONTROL OF THE PATIENT'S BLOOD PRESSURE RAH BLAS MD Jan 31, 2019 16:48
[2019-01-31] MEDS: SIMETHICONE 80 MG (MYLICON) CHEW PO SCH ×2 (17:17→20:11)
[2019-01-31] MEDS: APIXABAN 2.5 MG (ELIQUIS) TABLET PO SCH (17:20)
[2019-01-31] MEDS: BRIMONIDINE 0.2% (ALPHAGAN) OPHTH SOLN 5 ML BTL OU SCH (20:10)
[2019-01-31] MEDS: ALLOPURINOL 100 MG (ZYLOPRIM) TAB PO SCH (20:10)
[2019-01-31] MEDS: VITAMIN D3 1,000 UNITS (CHOLECALCIFEROL) TABLET PO SCH (20:10)
[2019-01-31] MEDS: TIMOLOL MALEATE 0.5% 5 ML (TIMOPTIC) BTL OU SCH (20:10)
[2019-01-31] MEDS: DOCUSATE SODIUM 100 MG (COLACE) CAP PO SCH (20:11)
[2019-01-31] MEDS: CARVEDILOL 12.5 MG (COREG) TABLET PO SCH (20:12)
[2019-01-31] MEDS ORDERED: NON-FORMULARY MEDICATION 1 EA EA (Hydralazine HCl 25 MG) PO SCH (21:00)
[2019-01-31] MEDS ORDERED: NON-FORMULARY MEDICATION 1 EA EA (Allopurinol 100 MG) PO SCH (21:00)
[2019-01-31] MEDS ORDERED: NON-FORMULARY MEDICATION 1 EA EA (Brimonidine Tartrate/Timolol (Combigan Eye Drops) 1 DROP OU SCH (21:00)
[2019-01-31] MEDS ORDERED: hydrALAZINE (APRESOLINE) 25 MG TAB PO SCH (21:00)
[2019-01-31] MEDS ORDERED: NON-FORMULARY MEDICATION 1 EA EA (Cholecalciferol (Vitamin D3) (Vitamin D3) 1,000 UNIT) PO SCH (21:00)
[2019-01-31] MEDS: ALPRAZolam 0.5 MG (XANAX) TAB PO PRN (21:39)
[2019-02-01] VITALS (26 sets, daily range): BP systolic 122–197; BP diastolic 50–91
[2019-02-01] MEDS: APIXABAN 2.5 MG (ELIQUIS) TABLET PO SCH ×2 (06:14→18:18)
[2019-02-01] MEDS: LEVOTHYROXINE 25 MCG (LEVOTHROID) TAB PO SCH (06:14)
[2019-02-01] MEDS: NS IV 1000 ML 1,000 ML IV SCH ×2 (06:16→12:32)
[2019-02-01 07:35] LABS: HEMOGLOBIN 11.1 G/DL (11.5-16.0); MEAN PLATELET VOLUME 9.2 FL (7.4-10.4); RED CELL DISTRIBUTION WIDTH 13.9 % (10.0-14.5); WHITE BLOOD COUNT 7.9 10^3/uL (4.3-11.0)
[2019-02-01 07:50] LABS: ALBUMIN 3.3 GM/DL (3.2-4.5); BILIRUBIN,TOTAL 0.4 MG/DL (0.1-1.0); CALCIUM 9.6 MG/DL (8.5-10.1); CREATININE SERUM 1.5 MG/DL (0.60-1.30); POTASSIUM 4.2 MMOL/L (3.6-5.0); TOTAL PROTEIN 6.2 GM/DL (6.4-8.2)
[2019-02-01] MEDS: DILTIAZEM 180 MG (CARDIZEM CD) CAP PO SCH (08:22)
[2019-02-01] MEDS: CARVEDILOL 12.5 MG (COREG) TABLET PO SCH ×2 (08:22→19:48)
[2019-02-01] MEDS: DULoxetine 30 MG (CYMBALTA) CAP PO SCH (08:23)
[2019-02-01] MEDS: DOCUSATE SODIUM 100 MG (COLACE) CAP PO SCH ×2 (08:23→19:45)
[2019-02-01] MEDS: BRIMONIDINE 0.2% (ALPHAGAN) OPHTH SOLN 5 ML BTL OU SCH ×3 (08:23→19:45)
[2019-02-01] MEDS: TIMOLOL MALEATE 0.5% 5 ML (TIMOPTIC) BTL OU SCH ×2 (08:23→19:45)
[2019-02-01] MEDS: SIMETHICONE 80 MG (MYLICON) CHEW PO SCH ×4 (08:23→19:49)
[2019-02-01] MEDS: AMIODARONE 200 MG (CORDARONE) TAB PO SCH (08:23)
[2019-02-01] MEDS: NITROGLYCERIN DRIP 25 MG/250 ML D5W (PRE-MIX) IV SCH (08:31)
[2019-02-01] MEDS: ALPRAZolam 0.5 MG (XANAX) TAB PO PRN ×2 (08:33→21:22)
[2019-02-01] MEDS ORDERED: hydrALAZINE (APRESOLINE) 25 MG TAB PO SCH ×2 (09:00→21:00)
[2019-02-01] MEDS ORDERED: NON-FORMULARY MEDICATION 1 EA EA (Flaxseed Oil 1,000 MG) PO SCH (09:00)
[2019-02-01] MEDS ORDERED: DILTIAZEM HCL 360 MG PO SCH (09:00)
[2019-02-01] MEDS ORDERED: NON-FORMULARY MEDICATION 1 EA EA (Hydralazine HCl 50 MG) PO SCH (09:00)
--- NOTE | 2019-02-01 09:28 | NUR ---
DR SAEED ON FLOOR NEW VERBAL ORDERS RECEIVED TO CHANGE PT'S APRESOLINE TO 75MG PO BID AND GIVE 25MG PO NOW. ORDERS ENTERED.
[2019-02-01] MEDS ORDERED: hydrALAZINE (APRESOLINE) 25 MG TAB PO NR (09:30)
--- NOTE | 2019-02-01 16:33 | Cardiology Progress Note ---
Cardiology SOAP Progress Note Subjective: Mild shortness of breath. Objective: I&O/Vital Signs 02/01/19 02/01/19 02/01/19 02/01/19 05:00 06:00 07:00 07:00 Pulse 60 60 60 60 Resp 18 24 12 B/P (MAP) 158/59 (92) 164/68 (100) 188/75 (112) Pulse Ox 88 91 92 O2 Delivery Nasal Cannula Nasal Cannula Nasal Cannula O2 Flow Rate 2.00 2.00 2.00 02/01/19 02/01/19 02/01/19 02/01/19 08:00 08:31 08:45 09:00 Temp 37.38545 Pulse 60 60 60 Resp 16 16 14 B/P (MAP) 197/85 (122) 249/110 157/70 (99) Pulse Ox 92 92 90 O2 Delivery Nasal Cannula Nasal Cannula Nasal Cannula Nasal Cannula O2 Flow Rate 2.00 2.00 2.00 2.00 02/01/19 02/01/19 02/01/19 02/01/19 10:00 11:00 12:06 12:12 Temp 36.8 Pulse 60 60 60 Resp 20 10 13 B/P (MAP) 128/52 (77) 153/68 (96) 164/70 (101) Pulse Ox 91 91 93 O2 Delivery Nasal Cannula Nasal Cannula Nasal Cannula O2 Flow Rate 2.00 2.00 2.00 02/01/19 02/01/19 02/01/19 02/01/19 12:29 13:00 14:00 15:00 Pulse 60 60 60 60 Resp 31 23 B/P (MAP) 153/70 (97) 163/65 (97) 172/72 (105) Pulse Ox 90 92 O2 Delivery Nasal Cannula Nasal Cannula Nasal Cannula O2 Flow Rate 2.00 2.00 2.00 02/01/19 16:05 Temp 36.8 Pulse 61 Resp 20 B/P (MAP) 170/91 (117) Pulse Ox 91 02/01/19 00:00 Intake Total 540 ml Output Total 950 ml Balance -410 ml Weight (Pounds): 148 Weight (Ounces): 0.0 Weight (Calculated Kilograms): 67.055973 Constitutional: appears stated age, AAO x 3; No apparent distress; well- developed, well-nourished Respiratory: chest is bilaterally symmetric, lungs clear to auscultation Cardiovascular: regular rate-rhythm, S1 and S2, systolic murmur Gastrointestional: soft, round, audible bowel sounds; No spleenomegaly Extremities: normal range of motion, non-tender, normal inspection; No clubbing, No cyanosis; no lower extremity edema bilateral; No significant edema Neurologic/Psychiatric: no motor/sensory deficits, alert, normal mood/affect, oriented x 3, power is 5/5 both on sides Skin: normal color, warm/dry; No rash, No ulcerations Results/Procedures: Labs Laboratory Tests 02/01/19 07:26: White Blood Count 7.9, Red Blood Count 3.66L, Hemoglobin 11.1L, Hematocrit 34L, Mean Corpuscular Volume 93, Mean Corpuscular Hemoglobin 30, Mean Corpuscular Hemoglobin Concent 33, Red Cell Distribution Width 13.9, Platelet Count 319, Mean Platelet Volume 9.2, Sodium Level 138, Potassium Level 4.2, Chloride Level 105, Carbon Dioxide Level 24, Anion Gap 9, Blood Urea Nitrogen 27H, Creatinine 1.50H, Estimat Glomerular Filtration Rate 33, BUN/Creatinine Ratio 18, Glucose Level 101, Calcium Level 9.6, Corrected Calcium 10.2H, Total Bilirubin 0.4, Aspartate Amino Transf (AST/SGOT) 9, Alanine Aminotransferase (ALT/SGPT) 10, Alkaline Phosphatase 70, B-Type Natriuretic Peptide 323.0H, Total Protein 6.2L, Albumin 3.3 Microbiology 01/31/19 MRSA Screen - Final, Complete MRSA not isolated A/P: Assessment/Dx: Severe hypertension, Persistent atrial fibrillation, Permanent pacemaker, Moderate chronic kidney disease, Mild acute on chronic diastolic dysfunction, Pulmonary hypertension, Moderate to severe tricuspid regurgitation. Plan: Severe hypertension, nitroglycerin infusion. Earlier today systolic blood pressure went up to 200 mmHg again before by mouth medications were given. IV increase the dose of hydralazine to 75 mg twice a day from 75 mg once a day. Continue rest of her medications as well. Persistent atrial fibrillation, atrial paced rhythm. Continue amiodarone. Continue oral anticoagulation. Permanent pacemaker, no acute issues. Moderate chronic kidney disease, follows with nephrology as an outpatient. Mild acute on chronic diastolic dysfunction, BNP is mildly elevated. No significant florid congestive heart failure on examination. One dose of IV Lasix 40 mg given 01/31/2019. Pulmonary hypertension, follow clinically. Moderate to severe tricuspid regurgitation. No acute issues. Thank you for your consultation. Please call me if you have any questions. Eloy German MD, FACP, FACC, FSCAI, FHRS, CCDS Interventional Cardiology Cardiac Electrophysiology Vascular Medicine and Endovascular Interventions Phyllis GERMAN MD Feb 01, 2019 16:33
[2019-02-01] MEDS: HYDROcodone/APAP 10 MG/325 MG (LORTAB) TAB PO PRN ×2 (18:19→21:22)
[2019-02-01] MEDS: hydrALAZINE (APRESOLINE) 25 MG TAB PO SCH (19:46)
[2019-02-01] MEDS: VITAMIN D3 1,000 UNITS (CHOLECALCIFEROL) TABLET PO SCH (19:46)
[2019-02-01] MEDS: ALLOPURINOL 100 MG (ZYLOPRIM) TAB PO SCH (19:48)
[2019-02-02] VITALS (25 sets, daily range): BP systolic 107–198; BP diastolic 52–81
[2019-02-02 03:47] LABS: CALCIUM 9.2 MG/DL (8.5-10.1); CREATININE SERUM 1.79 MG/DL (0.60-1.30); MAGNESIUM 1.5 MG/DL (1.6-2.4); PHOSPHORUS 4.2 MG/DL (2.3-4.7); POTASSIUM 4.1 MMOL/L (3.6-5.0)
[2019-02-02] MEDS: POTASSIUM CL 10MEQ/50ML IVPB 50 ML IV SCH (04:48)
[2019-02-02] MEDS: MAGNESIUM 1 GM/100 ML IVPB 100 ML IV SCH ×3 (04:49→06:43)
[2019-02-02] MEDS: KCL 20 MEQ TAB (K-DUR) PO SCH (04:50)
[2019-02-02] MEDS: LEVOTHYROXINE 25 MCG (LEVOTHROID) TAB PO SCH (05:39)
[2019-02-02] MEDS: APIXABAN 2.5 MG (ELIQUIS) TABLET PO SCH ×2 (05:39→17:36)
[2019-02-02] MEDS: NITROGLYCERIN DRIP 25 MG/250 ML D5W (PRE-MIX) IV SCH (06:02)
[2019-02-02] MEDS: SIMETHICONE 80 MG (MYLICON) CHEW PO SCH ×4 (08:13→20:39)
[2019-02-02] MEDS: DULoxetine 30 MG (CYMBALTA) CAP PO SCH (08:13)
[2019-02-02] MEDS: CARVEDILOL 12.5 MG (COREG) TABLET PO SCH ×2 (08:13→20:39)
[2019-02-02] MEDS: DILTIAZEM 180 MG (CARDIZEM CD) CAP PO SCH (08:14)
[2019-02-02] MEDS: DOCUSATE SODIUM 100 MG (COLACE) CAP PO SCH ×2 (08:14→20:39)
[2019-02-02] MEDS: TIMOLOL MALEATE 0.5% 5 ML (TIMOPTIC) BTL OU SCH ×2 (08:14→20:40)
[2019-02-02] MEDS: AMIODARONE 200 MG (CORDARONE) TAB PO SCH (08:14)
[2019-02-02] MEDS: BRIMONIDINE 0.2% (ALPHAGAN) OPHTH SOLN 5 ML BTL OU SCH ×3 (08:14→20:40)
[2019-02-02] MEDS: hydrALAZINE (APRESOLINE) 25 MG TAB PO SCH ×3 (08:32→20:40)
[2019-02-02 08:33] LABS: BASOPHILS % (AUTO) 0 % (0-10); EOSINOPHILS # (AUTO) 0.2 10^3/uL (0.0-0.3); EOSINOPHILS % (AUTO) 2 % (0-10); HEMATOCRIT 29 % (35-52); HEMOGLOBIN 9.2 G/DL (11.5-16.0); LYMPHOCYTES # (AUTO) 0.6 X 10^3 (1.0-4.0); LYMPHOCYTES % (AUTO) 7 % (12-44); MEAN CORPUSCULAR HEMOGLOBIN 30 PG (25-34); MEAN CORPUSCULAR HGB CONC 32 G/DL (32-36); MEAN CORPUSCULAR VOLUME 92 FL (80-99); MEAN PLATELET VOLUME 9.1 FL (7.4-10.4); MONOCYTES # (AUTO) 0.8 X 10^3 (0.0-1.0); MONOCYTES % (AUTO) 9 % (0-12); NEUTROPHILS % (AUTO) 81 % (42-75); PLATELET COUNT 346 10^3/uL (130-400); RED CELL DISTRIBUTION WIDTH 13.7 % (10.0-14.5); WHITE BLOOD COUNT 8.7 10^3/uL (4.3-11.0)
--- NOTE | 2019-02-02 08:48 | Progress Note ---
Subjective Date Seen by a Provider: Feb 01, 2019 Time Seen by a Provider: 08:30 Subjective/Events-last exam PT SEEN YESTERDAY MORNING, NOTE WAS INADVERTENTLY NOT INITIATED ON DAY OF PATIENT'S EVALUATION PT REPORTS THAT SHE IS FEELING ABOUT THE SAME ADMISSION - BUT SHE HAS NOT BEEN SHORT OF BREATH ON ADMISSION. SHE REPORTS THAT HER HEADACHE HAS IMPROVED Review of Systems General: Fatigue Pulmonary: No Dyspnea, No Cough Cardiovascular: No: Chest Pain Gastrointestinal: No: Nausea Genitourinary: Other (FOLYE IN PLACE) Neurological: Weakness Objective Exam Last Set of Vital Signs Vital Signs Date Time Temp Pulse Resp B/P (MAP) Pulse Ox O2 Delivery O2 Flow Rate FiO2 02/02/19 07:00 60 02/02/19 06:02 21 198/76 91 Nasal Cannula 2.00 02/01/19 19:52 37.0 Capillary Refill : Less Than 3 Seconds I&O Intake and Output 02/02/19 00:00 Intake Total 750 ml Output Total 900 ml Balance -150 ml Intake Oral 750 ml Output Urine Total 900 ml # Voids 1 General: Alert, Oriented X3, Cooperative HEENT: Atraumatic, PERRLA Neck: Supple Lungs: Clear to Auscultation Heart: Regular Rate Abdomen: Normal Bowel Sounds, Soft Neuro: Cranial Nerves 3-12 NL Psych/Mental Status: Mental Status NL, Mood NL Results Lab Laboratory Tests 02/01/19 20:21: Glucometer 239H 02/02/19 03:20: Sodium Level 135, Potassium Level 4.1, Chloride Level 104, Carbon Dioxide Level 22, Anion Gap 9, Blood Urea Nitrogen 33H, Creatinine 1.79H, Estimat Glomerular Filtration Rate 27, BUN/Creatinine Ratio 18, Glucose Level 101, Calcium Level 9.2, Phosphorus Level 4.2, Magnesium Level 1.5L 02/02/19 08:20: White Blood Count 8.7, Red Blood Count 3.09L, Hemoglobin 9.2L, Hematocrit 29L, Mean Corpuscular Volume 92, Mean Corpuscular Hemoglobin 30, Mean Corpuscular Hemoglobin Concent 32, Red Cell Distribution Width 13.7, Platelet Count 346, Mean Platelet Volume 9.1, Neutrophils (%) (Auto) 81H, Lymphocytes (%) (Auto) 7L, Monocytes (%) (Auto) 9, Eosinophils (%) (Auto) 2, Basophils (%) (Auto) 0, Neutrophils # (Auto) 7.0, Lymphocytes # (Auto) 0.6L, Monocytes # (Auto) 0.8, Eosinophils # (Auto) 0.2, Basophils # (Auto) 0.0 Microbiology 01/31/19 MRSA Screen - Final, Complete MRSA not isolated Assessment/Plan Assessment/Plan Assess & Plan/Chief Complaint HYPERTENSIVE EMERGENCY DYSPNEA ON EXERTION CHRONIC HYPERTENSION STAGE 3 CHRONIC RENAL FAILURE HYPOTHYROIDISM DEPRESSION CHRONIC BACK PAIN HYPERTENSIVE EMERGENCY - PT ON NITRO DRIP, RESUMED HOME MEDICATION REGIMEN, BUT BLOOD PRESSURE STILL GROSSLY UNCONTROLLED, CONTINUE TO ADJUST BLOOD PRESSURE MEDICATIONS NEEDED FOR APPROPRIATE BLOOD PRESSURE CONTROL. CONSULT HAS BEEN PLACED TO CARDIOLOGY -DR. SAEED ASSISTING WITH MANAGEMENT. DYSPNEA ON EXERTION - OXYGEN VIA NASAL CANNULA, DYSPNEA SHOULD IMPROVE WITH IMPROVED BLOOD PRESSURE CONTROL STAGE 3 CHRONIC RENAL FAILURE - RENAL ADJUSTMENT OF MEDICATIONS HYPOTHYROIDISM - RESUMED HOME REGIMEN OF LEVOTHYROXINE DEPRESSION - RESUMED CYMBALTA AND PRN ANXIOLYTIC CHRONIC BACK PAIN - PRN HYDROCODONE Clinical Quality Measures DVT/VTE Risk/Contraindication: Risk Factor Score Per Nursin RFS Level Per Nursing on Admit: 2=Moderate RAH ANGELES MD Feb 02, 2019 08:48
--- NOTE | 2019-02-02 08:49 | Progress Note ---
Subjective Date Seen by a Provider: Feb 02, 2019 Time Seen by a Provider: 08:49 Subjective/Events-last exam PT REPORTS PERSISTENT FATIGUE, SHE DENIES CHEST PAIN, NAUSEA, BUT DOES COMPLAIN OF EXCESSIVE GAS, SOME ABDOMINAL BLOATING. Review of Systems General: Fatigue HEENT: No Head Aches Pulmonary: No Dyspnea, No Cough Cardiovascular: No: Chest Pain, Palpitations Gastrointestinal: Abdominal Pain (BLOATING); No: Nausea Genitourinary: Other (BLACKMON IN PLACE) Neurological: Weakness, Confusion Objective Exam Last Set of Vital Signs Vital Signs Date Time Temp Pulse Resp B/P (MAP) Pulse Ox O2 Delivery O2 Flow Rate FiO2 02/02/19 07:00 60 02/02/19 06:02 21 198/76 91 Nasal Cannula 2.00 02/01/19 19:52 37.0 Capillary Refill : Less Than 3 Seconds I&O Intake and Output 02/02/19 00:00 Intake Total 750 ml Output Total 900 ml Balance -150 ml Intake Oral 750 ml Output Urine Total 900 ml # Voids 1 General: Alert, Oriented X3, Cooperative HEENT: Atraumatic, PERRLA Neck: Supple Lungs: Clear to Auscultation Heart: Regular Rate Abdomen: Normal Bowel Sounds, Soft Skin: No Rashes Neuro: Cranial Nerves 3-12 NL Psych/Mental Status: Mental Status NL, Mood NL Results Lab Laboratory Tests 02/01/19 20:21: Glucometer 239H 02/02/19 03:20: Sodium Level 135, Potassium Level 4.1, Chloride Level 104, Carbon Dioxide Level 22, Anion Gap 9, Blood Urea Nitrogen 33H, Creatinine 1.79H, Estimat Glomerular Filtration Rate 27, BUN/Creatinine Ratio 18, Glucose Level 101, Calcium Level 9.2, Phosphorus Level 4.2, Magnesium Level 1.5L 02/02/19 08:20: White Blood Count 8.7, Red Blood Count 3.09L, Hemoglobin 9.2L, Hematocrit 29L, Mean Corpuscular Volume 92, Mean Corpuscular Hemoglobin 30, Mean Corpuscular Hemoglobin Concent 32, Red Cell Distribution Width 13.7, Platelet Count 346, Mean Platelet Volume 9.1, Neutrophils (%) (Auto) 81H, Lymphocytes (%) (Auto) 7L, Monocytes (%) (Auto) 9, Eosinophils (%) (Auto) 2, Basophils (%) (Auto) 0, Neutrophils # (Auto) 7.0, Lymphocytes # (Auto) 0.6L, Monocytes # (Auto) 0.8, Eosinophils # (Auto) 0.2, Basophils # (Auto) 0.0 Microbiology 01/31/19 MRSA Screen - Final, Complete MRSA not isolated Assessment/Plan Assessment/Plan Assess & Plan/Chief Complaint HYPERTENSIVE EMERGENCY DYSPNEA ON EXERTION CHRONIC HYPERTENSION STAGE 3 CHRONIC RENAL FAILURE HYPOTHYROIDISM DEPRESSION CHRONIC BACK PAIN HYPERTENSIVE EMERGENCY - PT ON NITRO DRIP, RESUMED HOME MEDICATION REGIMEN - INCREASE COREG FROM 12.5MG AM AND 6.25MG HS, PT ON HYDRALAZINE DOSIGN REGIMEN ADJUSTED WELL TODAY DUE TO PERSISTENTLY UNCONTROLLED BLOOD PRESSURE, CONTINUE TO ADJUST BLOOD PRESSURE MEDICATIONS NEEDED FOR APPROPRIATE BLOOD PRESSURE CONTROL. CONSULT HAS BEEN PLACED TO CARDIOLOGY -DR. SAEED ASSISTING WITH MANAGEMENT. DYSPNEA ON EXERTION - OXYGEN VIA NASAL CANNULA, DYSPNEA HAS IMPROVED WITH IMPROVED BLOOD PRESSURE CONTROL STAGE 3 CHRONIC RENAL FAILURE - RENAL ADJUSTMENT OF MEDICATIONS HYPOTHYROIDISM - RESUMED HOME REGIMEN OF LEVOTHYROXINE DEPRESSION - RESUMED CYMBALTA AND PRN ANXIOLYTIC CHRONIC BACK PAIN - PRN HYDROCODONE DISCUSSED WITH PT AND HER DTR, WILL CONSIDER DISCHARGE TO HOME THIS WEEKEND IF HER BLOOD PRESSURE IMPROVES. Clinical Quality Measures DVT/VTE Risk/Contraindication: Risk Factor Score Per Nursin RFS Level Per Nursing on Admit: 2=Moderate RAH ANGELES MD Feb 02, 2019 08:49
[2019-02-02] MEDS ORDERED: hydrALAZINE (APRESOLINE) 25 MG TAB PO ONE ×3 (09:00→21:00)
[2019-02-02 09:22] LABS: BAND NEUTROPHILS 3 %; BASOPHILS % (MANUAL) 0 %; EOSINOPHILS % (MANUAL) 3 %; LYMPHOCYTES % (MANUAL) 5 %; MONOCYTES % (MANUAL) 2 %; NEUTROPHILS % (MANUAL) 87 %; RBC MORPH NORMAL
[2019-02-02] MEDS: NS IV 1000 ML 1,000 ML IV SCH (09:46)
--- NOTE | 2019-02-02 10:50 | NUR ---
Pastoral care visit.
--- NOTE | 2019-02-02 12:54 | Cardiology Progress Note ---
Cardiology SOAP Progress Note Subjective: No cardiac complaints. Objective: I&O/Vital Signs 02/02/19 02/02/19 02/02/19 02/02/19 01:00 01:00 02:00 03:00 Pulse 60 60 60 60 Resp 20 26 20 B/P (MAP) 179/70 (106) 167/63 (97) 180/64 (102) Pulse Ox 93 93 93 O2 Delivery Nasal Cannula Nasal Cannula Nasal Cannula O2 Flow Rate 2.00 2.00 2.00 02/02/19 02/02/19 02/02/19 02/02/19 03:53 04:00 04:00 05:00 Pulse 60 60 60 Resp 30 21 B/P (MAP) 175/68 (103) 182/76 (111) 190/81 (117) Pulse Ox 93 92 91 O2 Delivery Nasal Cannula Nasal Cannula Nasal Cannula Nasal Cannula O2 Flow Rate 2.00 2.00 2.00 2.00 02/02/19 02/02/19 02/02/19 02/02/19 06:00 06:02 07:00 07:00 Pulse 60 60 60 60 Resp 20 21 24 B/P (MAP) 198/76 (116) 198/76 176/71 (106) Pulse Ox 90 91 90 O2 Delivery Nasal Cannula Nasal Cannula Nasal Cannula O2 Flow Rate 2.00 2.00 2.00 02/02/19 02/02/19 02/02/19 02/02/19 08:00 09:00 10:00 11:00 Pulse 63 60 60 60 Resp 31 18 18 19 B/P (MAP) 193/78 (116) 134/67 (89) 107/52 (70) 141/58 (85) Pulse Ox 91 93 92 92 O2 Delivery Nasal Cannula Nasal Cannula Nasal Cannula Nasal Cannula O2 Flow Rate 2.00 2.00 2.00 2.00 02/02/19 00:00 Intake Total 750 ml Output Total 650 ml Balance 100 ml Weight (Pounds): 148 Weight (Ounces): 0.0 Weight (Calculated Kilograms): [id number] Constitutional: appears stated age, AAO x 3; No apparent distress; well- developed, well-nourished Respiratory: chest is bilaterally symmetric, lungs clear to auscultation Cardiovascular: regular rate-rhythm, S1 and S2, systolic murmur Gastrointestional: soft, round, audible bowel sounds; No spleenomegaly Extremities: normal range of motion, non-tender, normal inspection; No clubbing, No cyanosis; no lower extremity edema bilateral; No significant edema Neurologic/Psychiatric: no motor/sensory deficits, alert, normal mood/affect, oriented x 3, power is 5/5 both on sides Skin: normal color, warm/dry; No rash, No ulcerations Results/Procedures: Labs Laboratory Tests 02/01/19 20:21: Glucometer 239H 02/02/19 03:20: Sodium Level 135, Potassium Level 4.1, Chloride Level 104, Carbon Dioxide Level 22, Anion Gap 9, Blood Urea Nitrogen 33H, Creatinine 1.79H, Estimat Glomerular Filtration Rate 27, BUN/Creatinine Ratio 18, Glucose Level 101, Calcium Level 9.2, Phosphorus Level 4.2, Magnesium Level 1.5L 02/02/19 08:20: White Blood Count 8.7, Red Blood Count 3.09L, Hemoglobin 9.2L, Hematocrit 29L, Mean Corpuscular Volume 92, Mean Corpuscular Hemoglobin 30, Mean Corpuscular Hemoglobin Concent 32, Red Cell Distribution Width 13.7, Platelet Count 346, Mean Platelet Volume 9.1, Neutrophils (%) (Auto) 81H, Lymphocytes (%) (Auto) 7L, Monocytes (%) (Auto) 9, Eosinophils (%) (Auto) 2, Basophils (%) (Auto) 0, Neutrophils # (Auto) 7.0, Lymphocytes # (Auto) 0.6L, Monocytes # (Auto) 0.8, Eosinophils # (Auto) 0.2, Basophils # (Auto) 0.0, Neutrophils % (Manual) 87, Lymphocytes % (Manual) 5, Monocytes % (Manual) 2, Eosinophils % (Manual) 3, Basophils % (Manual) 0, Band Neutrophils 3, Blood Morphology Comment NORMAL 02/02/19 09:55: Microbiology 01/31/19 MRSA Screen - Final, Complete MRSA not isolated A/P: Assessment/Dx: Severe hypertension, Persistent atrial fibrillation, Permanent pacemaker, Moderate chronic kidney disease, Mild acute on chronic diastolic dysfunction, Pulmonary hypertension, Moderate to severe tricuspid regurgitation. Plan: Severe hypertension, nitroglycerin infusion. Earlier today systolic blood pressure went up to 180 mmHg again before by mouth medications were given. Dose of hydralazine increased to 75 mg twice a day on 02/01/2019. Persistent atrial fibrillation, atrial paced rhythm. Continue amiodarone. Continue oral anticoagulation. Permanent pacemaker, no acute issues. Moderate chronic kidney disease, follows with nephrology as an outpatient. Mild acute on chronic diastolic dysfunction, BNP is mildly elevated. No significant florid congestive heart failure on examination. One dose of IV Lasix 40 mg given 01/31/2019. Pulmonary hypertension, follow clinically. Moderate to severe tricuspid regurgitation. No acute issues. Thank you for your consultation. Please call me if you have any questions. Eloy German MD, FACP, FACC, FSCAI, FHRS, CCDS Interventional Cardiology Cardiac Electrophysiology Vascular Medicine and Endovascular Interventions Phyllis GERMAN MD Feb 02, 2019 12:54
[2019-02-02] MEDS: ALLOPURINOL 100 MG (ZYLOPRIM) TAB PO SCH (20:38)
[2019-02-02] MEDS: HYDROcodone/APAP 10 MG/325 MG (LORTAB) TAB PO PRN (20:38)
[2019-02-02] MEDS: VITAMIN D3 1,000 UNITS (CHOLECALCIFEROL) TABLET PO SCH (20:39)
[2019-02-02] MEDS: ALPRAZolam 0.5 MG (XANAX) TAB PO PRN (20:39)
[2019-02-03] VITALS (24 sets, daily range): BP systolic 78–170; BP diastolic 44–70
[2019-02-03] MEDS: NS IV 1000 ML 1,000 ML IV SCH ×2 (03:56→22:44)
[2019-02-03 03:59] LABS: CALCIUM 9.4 MG/DL (8.5-10.1); CREATININE SERUM 1.5 MG/DL (0.60-1.30); MAGNESIUM 1.8 MG/DL (1.6-2.4)
[2019-02-03] MEDS: MAGNESIUM 1 GM/100 ML IVPB 100 ML IV SCH (04:00)
[2019-02-03] MEDS: POTASSIUM CL 10MEQ/50ML IVPB 50 ML IV SCH (04:00)
[2019-02-03] MEDS: KCL 20 MEQ TAB (K-DUR) PO SCH (04:01)
[2019-02-03] MEDS: LEVOTHYROXINE 25 MCG (LEVOTHROID) TAB PO SCH (06:12)
[2019-02-03] MEDS: APIXABAN 2.5 MG (ELIQUIS) TABLET PO SCH ×2 (06:12→17:43)
--- NOTE | 2019-02-03 08:46 | Progress Note ---
Subjective Date Seen by a Provider: Feb 03, 2019 Time Seen by a Provider: 08:40 Subjective/Events-last exam PT DENIES CHEST PAIN, HEADACHE, ABDOMINAL PAIN. NURSING STAFF REPORTS THAT HER BLOOD PRESSURE HAS BEEN DIFFICULT TO CONTROL, BUT SOME OF THE MEDICATION ADJUSTMENTS HAVE PROVEN TO SHOW INTERMITTENT IMPROVING SYSTOLIC BLOOD PRESSURE READINGS. THEY DENY ANY OTHER ACUTE CONCERNS FOR THE PATIENT. Review of Systems General: No Chills; Fatigue HEENT: No Head Aches Pulmonary: No Dyspnea, No Cough Cardiovascular: No: Chest Pain, Palpitations Gastrointestinal: Other (BLOATING); No: Nausea, Abdominal Pain Genitourinary: Other (BLACKMON IN PLACE) Musculoskeletal: back pain Neurological: Weakness; No: Confusion Objective Exam Last Set of Vital Signs Vital Signs Date Time Temp Pulse Resp B/P (MAP) Pulse Ox O2 Delivery O2 Flow Rate FiO2 02/03/19 06:53 60 22 160/59 (92) 94 Nasal Cannula 2.00 02/03/19 03:25 37.0 Capillary Refill : Less Than 3 Seconds I&O Intake and Output 02/03/19 00:00 Intake Total 1040 ml Output Total 1275 ml Balance -235 ml Intake Oral 940 ml IV Total 100 ml Output Urine Total 1275 ml General: Alert, Oriented X3, Cooperative, No Acute Distress HEENT: Atraumatic, PERRLA Neck: Supple Lungs: Clear to Auscultation, Normal Air Movement Heart: Regular Rate Abdomen: Normal Bowel Sounds, Soft Extremities: No Clubbing, No Cyanosis Skin: No Rashes, No Breakdown Neuro: Cranial Nerves 3-12 NL Psych/Mental Status: Mental Status NL, Mood NL Results Lab Laboratory Tests 02/02/19 09:55: Iron Level 15L, Total Iron Binding Capacity 156L, Unsaturated Iron Binding Capacity 141, Transferrin % Saturation 10L, Ferritin 170.3 02/03/19 03:10: Sodium Level 136, Potassium Level 4.0, Chloride Level 106, Carbon Dioxide Level 23, Anion Gap 7, Blood Urea Nitrogen 28H, Creatinine 1.50H, Estimat Glomerular Filtration Rate 33, BUN/Creatinine Ratio 19, Glucose Level 117H, Calcium Level 9.4, Phosphorus Level 4.0, Magnesium Level 1.8 Microbiology 01/31/19 MRSA Screen - Final, Complete MRSA not isolated Assessment/Plan Assessment/Plan Assess & Plan/Chief Complaint HYPERTENSIVE EMERGENCY DYSPNEA ON EXERTION CHRONIC HYPERTENSION STAGE 3 CHRONIC RENAL FAILURE HYPOTHYROIDISM DEPRESSION CHRONIC BACK PAIN HYPERTENSIVE EMERGENCY - PT ON NITRO DRIP, INCREASED COREG FROM 12.5MG AM AND 6.25MG HS TO 12.5MG BID, PT ON HYDRALAZINE DOSING REGIMEN ADJUSTED AGAIN TODAY DUE TO PERSISTENTLY UNCONTROLLED BLOOD PRESSURE, CONTINUE TO ADJUST BLOOD PRESSURE MEDICATIONS NEEDED FOR APPROPRIATE BLOOD PRESSURE CONTROL. CONSULT HAS BEEN PLACED TO CARDIOLOGY -DR. SAEED ASSISTING WITH MANAGEMENT. DYSPNEA ON EXERTION - IMPROVED STAGE 3 CHRONIC RENAL FAILURE - RENAL ADJUSTMENT OF MEDICATIONS HYPOTHYROIDISM - RESUMED HOME REGIMEN OF LEVOTHYROXINE DEPRESSION - RESUMED CYMBALTA AND PRN ANXIOLYTIC CHRONIC BACK PAIN - PRN HYDROCODONE DISCUSSED WITH PT AND HER DTR, WILL CONSIDER DISCHARGE TO HOME THIS WEEKEND IF HER BLOOD PRESSURE IMPROVES. Clinical Quality Measures DVT/VTE Risk/Contraindication: Risk Factor Score Per Nursin RFS Level Per Nursing on Admit: 2=Moderate RAH ANGELES MD Feb 03, 2019 08:46
[2019-02-03] MEDS ORDERED: BISACODYL 10 MG SUPP (DULCOLAX) PR NR (09:30)
[2019-02-03] MEDS ORDERED: POLYETHYLENE GLYCOL 17 GM (MIRALAX) PACK PO NR (09:30)
--- NOTE | 2019-02-03 09:42 | Cardiology Progress Note ---
Cardiology SOAP Progress Note Subjective: no cardiac complaints. Objective: I&O/Vital Signs 02/02/19 02/02/19 02/02/19 02/02/19 22:00 23:10 23:15 23:30 Temp 36.8 Pulse 60 61 Resp 12 11 B/P (MAP) 172/62 (98) 172/68 (102) Pulse Ox 92 91 91 O2 Delivery Nasal Cannula Nasal Cannula Nasal Cannula Nasal Cannula O2 Flow Rate 2.00 2.00 2.00 2.00 02/02/19 02/03/19 02/03/19 02/03/19 23:56 00:00 01:00 01:00 Pulse 60 60 60 Resp 19 20 B/P (MAP) 158/60 (92) 150/59 (89) Pulse Ox 94 93 O2 Delivery Nasal Cannula Nasal Cannula Nasal Cannula O2 Flow Rate 2.00 2.00 2.00 02/03/19 02/03/19 02/03/19 02/03/19 02:00 03:21 03:25 03:25 Temp 37.0 Pulse 62 60 Resp 16 22 B/P (MAP) 145/68 (93) 158/61 (93) Pulse Ox 93 95 92 O2 Delivery Nasal Cannula Nasal Cannula Nasal Cannula Nasal Cannula O2 Flow Rate 2.00 2.00 2.00 2.00 02/03/19 02/03/19 02/03/19 02/03/19 04:00 05:28 06:53 07:00 Pulse 60 60 60 60 Resp 21 20 22 B/P (MAP) 162/54 (90) 156/55 (88) 160/59 (92) Pulse Ox 93 93 94 O2 Delivery Nasal Cannula Nasal Cannula Nasal Cannula O2 Flow Rate 2.00 2.00 2.00 02/03/19 00:00 Intake Total 720 ml Output Total 925 ml Balance -205 ml Weight (Pounds): 148 Weight (Ounces): 0.0 Weight (Calculated Kilograms): 67.515519 Constitutional: appears stated age, AAO x 3; No apparent distress; well- developed, well-nourished Respiratory: chest is bilaterally symmetric, lungs clear to auscultation Cardiovascular: regular rate-rhythm, S1 and S2, systolic murmur Gastrointestional: soft, round, audible bowel sounds; No spleenomegaly Extremities: normal range of motion, non-tender, normal inspection; No clubbing, No cyanosis; no lower extremity edema bilateral; No significant edema Neurologic/Psychiatric: no motor/sensory deficits, alert, normal mood/affect, oriented x 3, power is 5/5 both on sides Skin: normal color, warm/dry; No rash, No ulcerations Results/Procedures: Labs Laboratory Tests 02/02/19 09:55: Iron Level 15L, Total Iron Binding Capacity 156L, Unsaturated Iron Binding Capacity 141, Transferrin % Saturation 10L, Ferritin 170.3 02/03/19 03:10: Sodium Level 136, Potassium Level 4.0, Chloride Level 106, Carbon Dioxide Level 23, Anion Gap 7, Blood Urea Nitrogen 28H, Creatinine 1.50H, Estimat Glomerular Filtration Rate 33, BUN/Creatinine Ratio 19, Glucose Level 117H, Calcium Level 9.4, Phosphorus Level 4.0, Magnesium Level 1.8 Microbiology 01/31/19 MRSA Screen - Final, Complete MRSA not isolated A/P: Assessment/Dx: Severe hypertension, Persistent atrial fibrillation, Permanent pacemaker, Moderate chronic kidney disease, Mild acute on chronic diastolic dysfunction, Pulmonary hypertension, Moderate to severe tricuspid regurgitation. Plan: Severe hypertension, nitroglycerin infusion. systolic BP better controlled. Dose of hydralazine increased to 100 mg twice a day on 02/02/2019. Increase coreg to 12.5mg bid. continue diltiazem 360mg. taper off NTG infusion and hopefully home later today. Persistent atrial fibrillation, atrial paced rhythm. Continue amiodarone. Continue oral anticoagulation. Permanent pacemaker, no acute issues. Moderate chronic kidney disease, follows with nephrology as an outpatient. Mild acute on chronic diastolic dysfunction, BNP is mildly elevated. No significant florid congestive heart failure on examination. One dose of IV Lasix 40 mg given 01/31/2019. Pulmonary hypertension, follow clinically. Moderate to severe tricuspid regurgitation. No acute issues. Thank you for your consultation. Please call me if you have any questions. Eloy German MD, FACP, FACC, FSCAI, FHRS, CCDS Interventional Cardiology Cardiac Electrophysiology Vascular Medicine and Endovascular Interventions Phyllis GERMAN MD Feb 03, 2019 9:42 am
[2019-02-03] MEDS: DULoxetine 30 MG (CYMBALTA) CAP PO SCH (10:30)
[2019-02-03] MEDS: DILTIAZEM 180 MG (CARDIZEM CD) CAP PO SCH (10:30)
[2019-02-03] MEDS: AMIODARONE 200 MG (CORDARONE) TAB PO SCH (10:30)
[2019-02-03] MEDS: SIMETHICONE 80 MG (MYLICON) CHEW PO SCH ×4 (10:31→21:53)
[2019-02-03] MEDS: CARVEDILOL 12.5 MG (COREG) TABLET PO SCH ×2 (10:31→21:53)
[2019-02-03] MEDS: DOCUSATE SODIUM 100 MG (COLACE) CAP PO SCH ×2 (10:31→21:53)
[2019-02-03] MEDS: hydrALAZINE (APRESOLINE) 25 MG TAB PO SCH ×4 (10:31→21:52)
[2019-02-03] MEDS: BRIMONIDINE 0.2% (ALPHAGAN) OPHTH SOLN 5 ML BTL OU SCH ×3 (10:45→21:55)
[2019-02-03] MEDS: TIMOLOL MALEATE 0.5% 5 ML (TIMOPTIC) BTL OU SCH ×2 (10:45→21:56)
[2019-02-03] MEDS: NITROGLYCERIN DRIP 25 MG/250 ML D5W (PRE-MIX) IV SCH ×2 (11:56→17:52)
[2019-02-03] MEDS: IRON SUCROSE 200 MG/10 ML (VENOFER) VIAL IV SCH (14:13)
--- NOTE | 2019-02-03 14:29 | NUR ---
CONTACTED DR. ANGELES REGARDING PT BP. BP STILL TRENDING HIGH AT 188/70.
--- NOTE | 2019-02-03 16:02 | NUR ---
RECEIVED TELEPHONE ORDERS FROM DR. ANGELES TO ADMINISTER HYDRALAZINE ON THE FOLLOWING SCHEDULE: 100MG PO DAILY AT 0600; 25MG PO DAILY AT 1200; 50MG PO DAILY AT 1700; AND 100 MG PO DAILY AT 2200. EMAR UPDATED.
[2019-02-03] MEDS: ALPRAZolam 0.5 MG (XANAX) TAB PO PRN (21:52)
[2019-02-03] MEDS: HYDROcodone/APAP 10 MG/325 MG (LORTAB) TAB PO PRN (21:52)
[2019-02-03] MEDS: ALLOPURINOL 100 MG (ZYLOPRIM) TAB PO SCH (21:53)
[2019-02-03] MEDS: VITAMIN D3 1,000 UNITS (CHOLECALCIFEROL) TABLET PO SCH (21:53)
[2019-02-04] VITALS (15 sets, daily range): BP systolic 123–175; BP diastolic 45–76
[2019-02-04 03:17] LABS: HEMOGLOBIN 8.7 G/DL (11.5-16.0); RED CELL DISTRIBUTION WIDTH 13.5 % (10.0-14.5); WHITE BLOOD COUNT 6.6 10^3/uL (4.3-11.0)
[2019-02-04 03:37] LABS: CALCIUM 9.7 MG/DL (8.5-10.1); CREATININE SERUM 1.47 MG/DL (0.60-1.30); POTASSIUM 4.5 MMOL/L (3.6-5.0)
[2019-02-04] MEDS: POTASSIUM CL 10MEQ/50ML IVPB 50 ML IV SCH (04:03)
[2019-02-04] MEDS: MAGNESIUM 1 GM/100 ML IVPB 100 ML IV SCH (04:03)
[2019-02-04] MEDS: KCL 20 MEQ TAB (K-DUR) PO SCH (04:04)
[2019-02-04] MEDS: APIXABAN 2.5 MG (ELIQUIS) TABLET PO SCH ×2 (06:11→17:28)
[2019-02-04] MEDS: LEVOTHYROXINE 25 MCG (LEVOTHROID) TAB PO SCH (06:11)
[2019-02-04] MEDS: hydrALAZINE (APRESOLINE) 25 MG TAB PO SCH ×3 (06:11→21:49)
[2019-02-04] MEDS: DILTIAZEM 180 MG (CARDIZEM CD) CAP PO SCH (08:01)
[2019-02-04] MEDS: SIMETHICONE 80 MG (MYLICON) CHEW PO SCH ×4 (08:01→21:48)
[2019-02-04] MEDS: CARVEDILOL 12.5 MG (COREG) TABLET PO SCH ×2 (08:01→21:49)
[2019-02-04] MEDS: DULoxetine 30 MG (CYMBALTA) CAP PO SCH (08:01)
[2019-02-04] MEDS: DOCUSATE SODIUM 100 MG (COLACE) CAP PO SCH ×2 (08:01→21:49)
[2019-02-04] MEDS: AMIODARONE 200 MG (CORDARONE) TAB PO SCH (08:01)
[2019-02-04] MEDS: TIMOLOL MALEATE 0.5% 5 ML (TIMOPTIC) BTL OU SCH ×2 (08:02→21:47)
[2019-02-04] MEDS: BRIMONIDINE 0.2% (ALPHAGAN) OPHTH SOLN 5 ML BTL OU SCH ×3 (08:02→21:47)
--- NOTE | 2019-02-04 08:55 | Progress Note ---
Subjective Date Seen by a Provider: Feb 04, 2019 Time Seen by a Provider: 08:40 Subjective/Events-last exam PT REPORTS FEELING MUCH BETTER TODAY. SHE DENIES CHEST PAIN, SHORTNESS OF BREATH. SHE DENIES ABDOMINAL PAIN BUT HAS NOT YET HAD A GOOD BOWEL MOVEMENT. SHE HAD A SMALL MOVEMENT YESTERDAY AFTER SUPPOSITORIES. SHE STATES THAT SHE IS FEELING WEAK. Review of Systems General: Fatigue HEENT: No Head Aches Pulmonary: No Dyspnea, No Cough Cardiovascular: No: Chest Pain, Palpitations Gastrointestinal: Constipation; No: Nausea Genitourinary: Other (BLACKMON IN PLACE) Neurological: No: Confusion Objective Exam Last Set of Vital Signs Vital Signs Date Time Temp Pulse Resp B/P (MAP) Pulse Ox O2 Delivery O2 Flow Rate FiO2 02/04/19 06:00 60 17 149/63 (91) 95 Nasal Cannula 2.00 02/04/19 04:00 36.6 Capillary Refill : Less Than 3 Seconds I&O Intake and Output 02/04/19 00:00 Intake Total 2675 ml Output Total 1410 ml Balance 1265 ml Intake Oral 1425 ml IV Total 1250 ml Output Urine Total 1410 ml General: Alert, Oriented X3, Cooperative, No Acute Distress HEENT: Atraumatic, PERRLA Neck: Supple Lungs: Clear to Auscultation Heart: Regular Rate Abdomen: Normal Bowel Sounds, Soft Extremities: No Clubbing, No Cyanosis Skin: No Breakdown Neuro: Cranial Nerves 3-12 NL Psych/Mental Status: Mental Status NL, Mood NL Results Lab Laboratory Tests 02/04/19 03:05: White Blood Count 6.6, Red Blood Count 2.96L, Hemoglobin 8.7L, Hematocrit 27L, Mean Corpuscular Volume 92, Mean Corpuscular Hemoglobin 29, Mean Corpuscular Hemoglobin Concent 32, Red Cell Distribution Width 13.5, Platelet Count 363, Mean Platelet Volume 9.0, Sodium Level 135, Potassium Level 4.5, Chloride Level 106, Carbon Dioxide Level 21, Anion Gap 8, Blood Urea Nitrogen 30H, Creatinine 1.47H, Estimat Glomerular Filtration Rate 33, BUN/Creatinine Ratio 20, Glucose Level 112H, Calcium Level 9.7 Microbiology 01/31/19 MRSA Screen - Final, Complete MRSA not isolated Assessment/Plan Assessment/Plan Assess & Plan/Chief Complaint HYPERTENSIVE EMERGENCY DYSPNEA ON EXERTION CHRONIC HYPERTENSION STAGE 3 CHRONIC RENAL FAILURE HYPOTHYROIDISM DEPRESSION CHRONIC BACK PAIN CONSTIPATION HYPERTENSIVE EMERGENCY - PT HAS BEEN ON NITRO DRIP - NITRO DRIP HAS BEEN HELD TODAY WITH BP IN THE 140 SYSTOLIC, INCREASED COREG TO 12.5MG BID, PT ON HYDRALAZINE DOSING REGIMEN ADJUSTED YESTERDAY DUE TO PERSISTENTLY UNCONTROLLED BLOOD PRESSURE WITH PT FINALLY HAVING IMPROVED BLOOD PRESSURE CONTROL OVERNIGHT AND EARLY THIS MORNING. CONSULT HAS BEEN PLACED TO CARDIOLOGY -DR. SAEED ASSISTING WITH MANAGEMENT. DYSPNEA ON EXERTION - IMPROVED STAGE 3 CHRONIC RENAL FAILURE - RENAL ADJUSTMENT OF MEDICATIONS HYPOTHYROIDISM - RESUMED HOME REGIMEN OF LEVOTHYROXINE DEPRESSION - RESUMED CYMBALTA AND PRN ANXIOLYTIC CHRONIC BACK PAIN - PRN HYDROCODONE CONSTIPATION - RECOMMENDED PATIENT TO HAVE PRUNE JUICE, CONTINUE WITH MIRALAX, COLACE AND PRN SUPPOSITORY. MILK OF MAGNESIA IF THE OTHER TREATMENTS DO NOT RENDER RESULTS TODAY. DISCUSSED WITH PT AND HER DTR - PLAN ON PATIENT HAVING BLACKMON DISCONTINUED, THE PT WILL BE TRANSFERRED DOWN TO THE [facility] DUE TO ICU AND CARDIAC STEPDOWN BED SHORTAGE AND PLAN WILL BE DC TO HOME THURSDAY AFTER RECEIVING THERAPY TODAY AND TOMORROW MORNING. HER DC MEDICATIONS HAVE BEEN ARRANGED/SENT TO THE PHARMACY AND IF ANY ADJUSTMENTS ARE NECESSARY THEN THE ON-CALL PHYSICIAN WILL SEND UPDATES TO THE PATIENT'S PHARMACY. Clinical Quality Measures DVT/VTE Risk/Contraindication: Risk Factor Score Per Nursin RFS Level Per Nursing on Admit: 2=Moderate RAH ANGELES MD Feb 04, 2019 08:55
[2019-02-04] MEDS ORDERED: MILK OF MAGNESIA 400 MG/5 ML 30 ML UDC PO NR (09:00)
[2019-02-04] MEDS ORDERED: HYDR-3923 PO ×2 (10:03)
[2019-02-04] MEDS ORDERED: CARV12.53 PO (10:03)
--- NOTE | 2019-02-04 10:06 | D/C HH Face to Face Order ---
D/C Face to Face Orders Reconcile Patient Problems Problems Reviewed?: Yes Instructions for Patient Via Flipboard, Patient Instructions/FollowUp: 1 wk [facility] Physician to follow Patient: trupti Discharge Diet for Home: Regular Diet Patient Problems: hypertensive emergency Patient Data-Allergies,Ht & Wt Patient Allergies: Coded Allergies: Penicillins (Verified Allergy, Unknown, 06/19/08) Sulfa (Sulfonamide Antibiotics) (Verified Allergy, Unknown, 06/19/08) Height (Feet): 5 Height (Inches): 5.00 Weight (Pounds): 148 Weight (Ounces): 0.0 Home Health Need/Face to Face Date of Face to Face: Feb 04, 2019 Clinical Findings: Muscle weakness I have seen Pt [id number]: Yes Discharged To: Home Diagnosis/Conditions: hypertensive emergency Patient is Homebound due to: Muscle weakness Homebound Status Due to the above stated illness, injury or surgical procedure (medical condition or diagnosis) and associated clinical findings, the patient is homebound because of his/her inability to leave home except with aid of a supportive device and/or person AND leaving the home requires a considerable and taxing effort or is medically contraindicated. Pt req the following assistanc: Cane Home Health Nursing Orders Home Health Services Order: Nursing Services, Physical Therapy-Evaluate & Treat Home Health Infusion Therapy Line Start Date: Feb 01, 2019 Therapy Orders Therapy Orders: Physical Therapy Therapy Specific Orders: Eval assistive deivces, Teach enviro modifications/safety, Increase strength/endurance Certify Stmt I certify that this patient is under my care and that I, a nurse practitioner or a physician; a assistant account executive working with me, had a face to face encounter that - meets the physician face to face encounter requirements with this patient as dated. RAH ANGELES MD Feb 04, 2019 10:06
--- NOTE | 2019-02-04 10:51 | Cardiology Progress Note ---
Cardiology SOAP Progress Note Subjective: No cardiac complaints. Objective: I&O/Vital Signs 02/03/19 02/04/19 02/04/19 02/04/19 23:00 00:00 00:00 00:00 Temp 36.3 Pulse 60 61 Resp 19 20 B/P (MAP) 113/44 (67) 129/53 (78) Pulse Ox 94 95 92 O2 Delivery Nasal Cannula Nasal Cannula Nasal Cannula O2 Flow Rate 2.00 2.00 2.00 02/04/19 02/04/19 02/04/19 02/04/19 01:00 01:00 02:00 03:00 Pulse 60 60 60 60 Resp 19 18 14 B/P (MAP) 123/48 (73) 125/52 (76) 134/55 (81) Pulse Ox 95 95 96 O2 Delivery Nasal Cannula Nasal Cannula Nasal Cannula O2 Flow Rate 2.00 2.00 2.00 02/04/19 02/04/19 02/04/19 02/04/19 04:00 04:00 04:00 05:00 Temp 36.6 Pulse 60 61 Resp 23 16 B/P (MAP) 140/50 (80) 132/51 (78) Pulse Ox 92 95 95 O2 Delivery Nasal Cannula Nasal Cannula Nasal Cannula O2 Flow Rate 2.00 2.00 2.00 02/04/19 02/04/19 02/04/19 02/04/19 06:00 07:00 07:00 08:00 Temp 35.9 Pulse 60 60 61 Resp 17 21 B/P (MAP) 149/63 (91) 145/53 (83) Pulse Ox 95 92 92 O2 Delivery Nasal Cannula Nasal Cannula Nasal Cannula O2 Flow Rate 2.00 2.00 2.00 02/04/19 00:00 Intake Total 1300 ml Output Total 475 ml Balance 825 ml Weight (Pounds): 148 Weight (Ounces): 0.0 Weight (Calculated Kilograms): [id number] Constitutional: appears stated age, AAO x 3; No apparent distress; well- developed, well-nourished Respiratory: chest is bilaterally symmetric, lungs clear to auscultation Cardiovascular: regular rate-rhythm, S1 and S2, systolic murmur Gastrointestional: soft, round, audible bowel sounds; No spleenomegaly Extremities: normal range of motion, non-tender, normal inspection; No clubbing, No cyanosis; no lower extremity edema bilateral; No significant edema Neurologic/Psychiatric: no motor/sensory deficits, alert, normal mood/affect, oriented x 3, power is 5/5 both on sides Skin: normal color, warm/dry; No rash, No ulcerations Results/Procedures: Labs Laboratory Tests 02/04/19 03:05: White Blood Count 6.6, Red Blood Count 2.96L, Hemoglobin 8.7L, Hematocrit 27L, Mean Corpuscular Volume 92, Mean Corpuscular Hemoglobin 29, Mean Corpuscular Hemoglobin Concent 32, Red Cell Distribution Width 13.5, Platelet Count 363, Mean Platelet Volume 9.0, Sodium Level 135, Potassium Level 4.5, Chloride Level 106, Carbon Dioxide Level 21, Anion Gap 8, Blood Urea Nitrogen 30H, Creatinine 1.47H, Estimat Glomerular Filtration Rate 33, BUN/Creatinine Ratio 20, Glucose Level 112H, Calcium Level 9.7 Microbiology 01/31/19 MRSA Screen - Final, Complete MRSA not isolated A/P: Assessment/Dx: Severe hypertension, Persistent atrial fibrillation, Permanent pacemaker, Moderate chronic kidney disease, Mild acute on chronic diastolic dysfunction, Pulmonary hypertension, Moderate to severe tricuspid regurgitation. Plan: Severe hypertension, nitroglycerin infusion, low dose only 5 g per KG per minute.. systolic BP better controlled. Dose of hydralazine increased to 100 mg twice a day on 02/02/2019. Increase coreg to 12.5mg bid. continue diltiazem 360mg. taper off NTG infusion and hopefully transferred to regular floor later today. Persistent atrial fibrillation, atrial paced rhythm. Continue amiodarone. Continue oral anticoagulation. Permanent pacemaker, no acute issues. Moderate chronic kidney disease, follows with nephrology as an outpatient. Mild acute on chronic diastolic dysfunction, BNP is mildly elevated. No significant florid congestive heart failure on examination. One dose of IV Lasix 40 mg given 01/31/2019. Pulmonary hypertension, follow clinically. Moderate to severe tricuspid regurgitation. No acute issues. Thank you for your consultation. Please call me if you have any questions. Eloy German MD, FACP, FACC, FSCAI, FHRS, CCDS Interventional Cardiology Cardiac Electrophysiology Vascular Medicine and Endovascular Interventions Phyllis GERMAN MD Feb 04, 2019 10:51
--- NOTE | 2019-02-04 11:33 | Physical Therapy Evaluation ---
PT Evaluation-General Medical Diagnosis Admission Date Jan 31, 2019 at 16:41 Medical Diagnosis: acclerated HTN/SOA/hypoxia Onset Date: Jan 31, 2019 Therapy Diagnosis Therapy Diagnosis: debility/weakness Height/Weight Height (Feet): 5 Height (Inches): 5.00 Weight (Pounds): 148 Weight (Ounces): 0.0 Precautions Precautions/Isolations: Standard Precautions Weight Bear Status Right Lower Extremity: Right Weight Bearing/Tolerated Left Lower Extremity: Left Weight Bearing/Tolerated Referral Physician: Roopa Reason for Referral: Evaluation/Treatment Medical History Pertinent Medical History: Atrial Fib, HTN, Hypothroidism, Renal Insufficiency Current History ER with SOA Reviewed History: Yes Social History Home: Single Level Current Living Status: Alone Entry Into Home: Stairs With Railing PT Steps Into Home: 2 Prior Prior Level of Function Therapy Quality Codes: 6 Independent with activity with or without an assistive device 5 Patient requires set up or clean up by helper. Patient completes activity by themselves 4 Supervision or touching assist (CGA). [place] provide cues , steadying assist 3 The helper provides less than half the effort to complete the activity 2 The helper provides more than half the effort to complete the activity 1 Dependent. The helper does all the effort to complete an activity 7 Patient refused to complete or attempt activity 9 The patient did not perform the activity before the current illness or injury 88 Not attempted due to Medical conditions or safety concerns Bed Mobility: 6 Transfers (B,C,W/C): 6 Gait: 6 Stairs: 6 Indoor Mobility (Ambulation): Independent Stairs: Independent Prior Devices Use: Walker, Other-see list below (cane or FWW (patient has both)) PT Evaluation-Current Subjective Patient agrees to PT. No c/o. Pain Numeric Pain Scale: 0-No Pain Location: No Pain Reported Objective Patient Orientation: Normal For Age Problem Solving: Fair Attachments: Oxygen (2L NC) ROM/Strength ROM Lower Extremities bilateral LE WFL Strength Lower Extremities 4-/5 grossly bilateral LE Integumentary/Posture Integumentary refer to nursing notes Bowel Incontinence: No Bladder Incontinence: No Posture WFL Neuromuscular (Tone, Coordination, Reflexes) grossly intact Sensory Vision: Wears Glasses Hearing: Functional Sensation Right Lower Extremit: Intact Sensation Left Lower Extremity: Intact Transfers Roll Left to Right (QC): 5 Sit to Lying (QC): 5 Lying to Sitting/Side of Bed(Q: 5 Sit to Stand (QC): 5 Chair/Yuv-up-Ljycb Xfer(QC): 5 Gait Does the Patient Walk?: Yes Mode of Locomotion: Walk Anticipated Mode of Locomotion: Walk Distance (FIM): 3=150 ft Walk 10 feet (QC): 5 Walk 50 ft with 2 Turns(QC): 5 Walk 150 ft (QC): 5 Distance: 175' Gait Assistive Device: FWW Comments/Gait Description slow, decreased sarah and step length due to weakness Balance Sitting Static: Normal Sitting Dynamic: Normal Standing Static: Normal Standing Dynamic: Normal Assessment/Needs 88 y.o. female, will benefit from skilled PT to address functional strength and mobility to improve current LOF to safely return to home at maximum LOF with home health intervention to ensure safety to prevent possible negative side effects. Rehab Potential: Fair PT Halfway Goals Clinical Trial Educator Goals PT Halfway Goals Time Frame: Feb 09, 2019 Sit to Lying (QC): 6 Lying-Sitting on Side/Bed(QC): 6 Sit to Stand (QC): 6 Roll Left to Right (QC): 6 Chair/Hur-tm-Khaum Xfer(QC): 6 Car Transfer (QC): 6 Does the Patient Walk: Yes Distance: 200' Walk 10 feet (QC): 6 Walk 10ft-Uneven Surface(QC): 6 Walk 50ft with 2 Turns (QC): 6 Walk 150 ft (QC): 6 Gait Assistive Device: FWW PT Plan Problem List Problem List: Activity Tolerance, Functional Strength Treatment/Plan Treatment Plan: Continue Plan of Care Treatment Plan: Bed Mobility, Education, Functional Activity Austen, Functional Strength, Gait, Safety, Transfers Treatment Duration: Feb 09, 2019 Frequency: 6 times per week Estimated Hrs Per Day: .25 hour per day Patient and/or Family Agrees t: Yes Time/GCodes Time In: 1050 Time Out: 1106 Total Billed Treatment Time: 16 Total Billed Treatment 1 visit EVModC 16 min CHRISTIANO FRANCIS PT Feb 04, 2019 11:33
--- NOTE | 2019-02-04 11:40 | NUR ---
Report received from Marlyn COTTRELL. Patient sitting in chair in room 431, family with patient. Call light within reach, patient oriented to room and surroundings. Denies any pain or discomfort at this time.
[2019-02-04] MEDS ORDERED: hydrALAZINE (APRESOLINE) 25 MG TAB PO SCH (12:00)
--- NOTE | 2019-02-04 12:17 | NUR ---
"RD ASSESSMENT PMHx: aib, HTN, renal failure, CA (bladder) PT INTERACTION: Pt was awake and pleasant during nutrition assessment. Pt states current appetite is pretty good and that it has been for the past few weeks. Pt staes no current issues with n/v at this time. Pt states some issues with constipation and has not had a BM since admit. Pt states last BM was 01/30. Pt states no recent wt changes. Note unable to determine recent wt hx, per chart review. Pt states not following a specific diet at home, but does limit salt in her food preparation. ABNORMAL NUTRITION-RELATED LAB VALUES: Hgb 8.7 (L); Hct 27 (L); BUN 30 (H); cr 1.4 (H); glu 112 Est. kcal needs: 4943-0844 kcal (25-30 kcal/kg) Est. Pro needs: 55-69 g Pro (0.8-1.0 g Pro/kg) PES STATEMENT: Altered GI Function related to changes in gastric motility as evidenced by lack of BM | Constipation INTERVENTION: Continue with current diet order of regular diet. Pt may require bowel regimen if constipation persists. MONITOR/EVALUATE: PO Intake; Weight Status; Hydration Status; Stool Output; Lab Values August Alex, MS, RD, LD [phone]"
--- NOTE | 2019-02-04 15:47 | NUR ---
Arrangements completed for referral to Home Health Care. Pt chose [facility] as has been on their service in the past. Signed Choice form in chart. Physician orders and discharge orders faxed to [facility] and advised of Thursday discharge. Magalys Knight RN electronics instructor will see her on Thursday if discharged on Thursday. Pt also expressing possible need for Bedside Commode due to weakness.Pt given list of local DME providers and zamorano list. She would like her insurance billed and will consider requesting script from her physician or paying hickey zamorano.
[2019-02-04] MEDS: ALLOPURINOL 100 MG (ZYLOPRIM) TAB PO SCH (21:49)
[2019-02-04] MEDS: HYDROcodone/APAP 10 MG/325 MG (LORTAB) TAB PO PRN (21:49)
[2019-02-04] MEDS: VITAMIN D3 1,000 UNITS (CHOLECALCIFEROL) TABLET PO SCH (21:49)
[2019-02-04] MEDS: ALPRAZolam 0.5 MG (XANAX) TAB PO PRN (21:50)
[2019-02-05 04:00] VITALS: BP 137/51
[2019-02-05 04:37] LABS: CALCIUM 10.3 MG/DL (8.5-10.1); CREATININE SERUM 1.35 MG/DL (0.60-1.30); MAGNESIUM 1.9 MG/DL (1.6-2.4); PHOSPHORUS 3.4 MG/DL (2.3-4.7); POTASSIUM 4.8 MMOL/L (3.6-5.0)
[2019-02-05] MEDS: KCL 20 MEQ TAB (K-DUR) PO SCH (05:42)
[2019-02-05] MEDS: hydrALAZINE (APRESOLINE) 25 MG TAB PO SCH (06:07)
[2019-02-05] MEDS: APIXABAN 2.5 MG (ELIQUIS) TABLET PO SCH (06:07)
[2019-02-05] MEDS: LEVOTHYROXINE 25 MCG (LEVOTHROID) TAB PO SCH (06:07)
[2019-02-05] MEDS: DULoxetine 30 MG (CYMBALTA) CAP PO SCH (07:45)
[2019-02-05] MEDS: DILTIAZEM 180 MG (CARDIZEM CD) CAP PO SCH (07:45)
[2019-02-05] MEDS: DOCUSATE SODIUM 100 MG (COLACE) CAP PO SCH (07:45)
[2019-02-05] MEDS: CARVEDILOL 12.5 MG (COREG) TABLET PO SCH (07:45)
[2019-02-05] MEDS: IRON SUCROSE 200 MG/10 ML (VENOFER) VIAL IV SCH (07:47)
[2019-02-05] MEDS: BRIMONIDINE 0.2% (ALPHAGAN) OPHTH SOLN 5 ML BTL OU SCH (07:49)
[2019-02-05] MEDS: AMIODARONE 200 MG (CORDARONE) TAB PO SCH (07:49)
[2019-02-05] MEDS: SIMETHICONE 80 MG (MYLICON) CHEW PO SCH (07:49)
[2019-02-05] MEDS: TIMOLOL MALEATE 0.5% 5 ML (TIMOPTIC) BTL OU SCH (07:50)
[2019-02-05 08:00] VITALS: BP 188/72
--- NOTE | 2019-02-05 09:05 | NUR ---
Asked trupti this AM if she would like fluids stopped on said patient. stated " she did not know said patient"
--- NOTE | 2019-02-05 10:00 | Cardiology Progress Note ---
Subjective Date Seen by Provider: Feb 05, 2019 Time Seen by Provider: 09:58 Subjective/Events-last exam Patient is sitting in a chair, eating breakfast, feeling well and asking about going home Review of Systems General: No Chills, No Night Sweats, No Fatigue, No Malaise, No Appetite, No Ot her HEENT: No Head Aches, No Visual Changes, No Eye Pain, No Ear Pain, No Dysp hasia, No Sinus Congestion, No Post Nasal Drip, No Sore Throat, No Other Pulmonary: No Dyspnea, No Cough, No Pleuritic Chest Pain, No Other Cardiovascular: No: Chest Pain, Palpitations, Orthopnea, Paroxysmal Noc. Dyspnea, Edema, Lt Headedness, Other Objective-Cardiology Exam Last Set of Vital Signs Vital Signs 02/05/19 02/05/19 08:00 09:00 Temp 36.2 Pulse 60 Resp 18 B/P (MAP) 188/72 (110) Pulse Ox 94 O2 Delivery Nasal Cannula O2 Flow Rate 2.00 Capillary Refill : Less Than 3 Seconds I&O Intake and Output 02/05/19 00:00 Intake Total 2420 ml Output Total 790 ml Balance 1630 ml Intake Oral 2420 ml Output Urine Total 740 ml Post Void Residual 50 ml # Voids 2 General: Alert, Oriented X3, Cooperative, No Acute Distress HEENT: Atraumatic, PERRLA Neck: Supple Lungs: Clear to Auscultation Heart: Regular Rate, Normal S1, Normal S2 Abdomen: Normal Bowel Sounds, Soft Extremities: No Clubbing, No Cyanosis Skin: No Breakdown Neuro: Normal Gait, Cranial Nerves 3-12 NL Psych/Mental Status: Mental Status NL, Mood NL Results Lab Laboratory Tests 02/05/19 04:10 A/P-Cardiology Admission Diagnosis Hypertension Persistent atrial fibrillation Chronic kidney disease Cardiac pacemaker Assessment/Plan Labile hypertension, difficult to control, increase Coreg to 25 mg twice a day and continue on diltiazem and hydralazine, patient has a pacemaker and tolerate aggressive dose of beta blockers and calcium channel blockers. Persistent atrial fibrillation, atrial paced rhythm. Continue amiodarone. Continue oral anticoagulation. Permanent pacemaker, followed by Dr. German Moderate chronic kidney disease, follows with nephrology as an outpatient. Mild acute on chronic diastolic dysfunction, BNP is mildly elevated. No significant florid congestive heart failure on examination. One dose of IV Lasix 40 mg given 01/31/2019. Pulmonary hypertension, follow clinically. Moderate to severe tricuspid regurgitation. No acute issues. Clinical Quality Measures DVT/VTE Risk/Contraindication: Risk Factor Score Per Nursin RFS Level Per Nursing on Admit: 2=Moderate WILBERT JAIME MD Feb 05, 2019 10:00
--- NOTE | 2019-02-05 10:24 | Physical Therapy Daily Note ---
PT Daily Note-Current Subjective Patient in recliner pre tx, agrees to PT, has no complaints of pain. Appearance Patient in recliner post tx with nurse call, phone, tray, family in the room. Mental Status Patient Orientation: Person, Place, Situation Attachments: Oxygen Transfers Therapy Quality Codes: 6 Independent with activity with or without an assistive device 5 Patient requires set up or clean up by helper. Patient completes activity by themselves 4 Supervision or touching assist (CGA). [employer] provide cues , steadying assist 3 The helper provides less than half the effort to complete the activity 2 The helper provides more than half the effort to complete the activity 1 Dependent. The helper does all the effort to complete an activity 7 Patient refused to complete or attempt activity 9 The patient did not perform the activity before the current illness or injury 88 Not attempted due to Medical conditions or safety concerns Transfers (B, C, W/C): 4 Sit to Stand (QC): 4 Chair/Jcs-jr-Kfqvu Xfer(QC): 4 CGA, cues for hand placement and positioning Weight Bearing Right Lower Extremity: Right Weight Bearing/Tolerated Left Lower Extremity: Left Weight Bearing/Tolerated Gait Training Distance: 100', 20' Walk 10 feet (QC): 4 Walk 50 ft with 2 Turns(QC): 4 Gait Persons Needed: 1 Gait Assistive Device: FWW very slow ambulation, very short steps, poor endurance, had to stop and take a seated rest break before ambulating back to her recliner Exercises Seated Therapy Exercises: Ankle pumps, Long arc quads Seated Reps: 15 Treatments transfers, ambulation, LE exercise Assessment Current Status: Poor Progress poor endurance PT Half-Way Goals Half-Way Goals PT Half-Way Goals Time Frame: Feb 09, 2019 Sit to Lying (QC): 6 Lying-Sitting on Side/Bed(QC): 6 Sit to Stand (QC): 6 Roll Left to Right (QC): 6 Chair/Gxc-nf-Qdstc Xfer(QC): 6 Car Transfer (QC): 6 Does the Patient Walk: Yes Distance: 200' Walk 10 feet (QC): 6 Walk 10ft-Uneven Surface(QC): 6 Walk 50ft with 2 Turns (QC): 6 Walk 150 ft (QC): 6 Gait Assistive Device: FWW PT Plan Problem List Problem List: Activity Tolerance, Functional Strength, Safety, Balance, Gait, Transfer, Bed Mobility Treatment/Plan Treatment Plan: Continue Plan of Care Treatment Plan: Bed Mobility, Education, Functional Activity Austen, Functional Strength, Gait, Safety, Transfers Treatment Duration: Feb 09, 2019 Frequency: 6 times per week Estimated Hrs Per Day: .25 hour per day Patient and/or Family Agrees t: Yes Safety Risks/Education Patient Education: Gait Training, Transfer Techniques, Correct Positioning, Safety Issues Teaching Recipient: Patient Teaching Methods: Demonstration, Discussion Response to Teaching: Reinforcement Needed Time/GCodes Time In: 1000 Time Out: 1016 Total Billed Treatment Time: 16 Total Billed Treatment 1 visit GT 16' GILL LOZOYA PT Feb 05, 2019 10:24
[2019-02-05] MEDS ORDERED: CRV25T PO (10:28)
--- NOTE | 2019-02-05 10:30 | NUR ---
tonya stated to DC fluids
[2019-02-05 11:32] VITALS: BP 188/72
--- NOTE | 2019-02-05 13:38 | Discharge Summary ---
Discharge Summary Hospital Course Problems/Dx: (1) Hypertensive emergency Status: Resolved Hospital Course Date of Admission: Jan 31, 2019 at 16:41 Admission Diagnosis : Hypertensive emergency Family Physician/Provider: Jena Blas MD Date of Discharge: 02/05/19 Discharge Diagnosis: Hypertensive emergency Hospital Course: Silvana Canada is an 88yoF who presented with malaise and was admitted with hypertensive emergency. She was initially treated with IV antihypertensives in the ICU, but was able to be transitioned to an oral regimen. Her final regimen was increased to Hydralazine 100 mg twice daily with a 50 mg mid-day dose and Coreg 25 mg daily. She was continued on Amiodarone 200 mg daily, Diltiazem 360 mg daily, and Lasix 40 mg daily as needed. Her course was complicated by hyponatremia and acute kidney injury which resolved prior to discharge. She will follow up with Dr. Last and Dr. Blas. Labs and Pending Lab Test: Laboratory Tests 02/05/19 04:10: Sodium Level 135, Potassium Level 4.8, Chloride Level 107, Carbon Dioxide Level 22, Anion Gap 6, Blood Urea Nitrogen 30H, Creatinine 1.35H, Estimat Glomerular Filtration Rate 37, BUN/Creatinine Ratio 22, Glucose Level 112H, Calcium Level 10.3H, Phosphorus Level 3.4, Magnesium Level 1.9 Microbiology 01/31/19 MRSA Screen - Final, Complete MRSA not isolated Home Meds Active Coreg (Carvedilol) 25 Mg Tab 25 Mg PO BID 90 Days Hydralazine HCl 25 Mg Tablet 50 Mg PO UD take 1/2 pill at 1200 and 1 tab at 1700 Hydralazine HCl 25 Mg Tablet 100 Mg PO BID take at 0600 and 2200 Eliquis (Apixaban) 2.5 Mg Tablet 2.5 Mg PO BID@0600,1800 90 Days Reported Amiodarone HCl 200 Mg Tablet 200 Mg PO DAILY Duloxetine HCl 30 Mg Capsule.dr 30 Mg PO DAILY Dilt-Xr (Diltiazem HCl) 180 Mg Cap.er.deg 360 Mg PO DAILY TAKES 2 (180MG) TABS TO EQUAL 360MG DAILY Allopurinol 100 Mg Tablet 100 Mg PO HS Hydrocodon-Acetaminophn 10-325 (Hydrocodone/Acetaminophen) 1 Each Tablet 0.5-1 Tab PO Q6H PRN Alprazolam 0.5 Mg Tablet 0.25-0.5 Mg PO TID PRN TAKES 1/2 TO 1 (0.5MG) TABLET Colace (Docusate Sodium) 100 Mg Capsule 100 Mg PO BID Vitamin D3 (Cholecalciferol (Vitamin D3)) 1,000 Unit Tablet 1,000 Unit PO HS Combigan Eye Drops (Brimonidine Tartrate/Timolol) 5 Ml Drops 1 Drop OU BID Furosemide 40 Mg Tablet 40 Mg PO DAILY PRN Levothyroxine Sodium 25 Mcg Tablet 12.5 Mcg PO DAILY TAKES 1/2 (25MCG) TABLET Flaxseed Oil 1,000 Mg Capsule 1,000 Mg PO DAILY Assessment/Pt Instructions Take medications as prescribed. Follow up with Dr. Blas. Follow up with Dr. Last. Discharge Planning: <30 minutes discharge planning Discharge Instructions Discharge Diet: Low Sodium Diet Activity as Tolerated: Yes Consultations Cardiology Discharge Physical Examination Vital Signs Vital Signs Date Time Temp Pulse Resp B/P (MAP) Pulse Ox O2 Delivery O2 Flow Rate FiO2 02/05/19 11:32 36.2 60 18 188/72 94 Nasal Cannula 2.00 General Appearance: No Apparent Distress, WD/WN Respiratory: Lungs Clear, Normal Breath Sounds, No Respiratory Distress Cardiovascular: Regular Rate, Rhythm, No Edema, No Murmur Gastrointestinal: Normal Bowel Sounds, Non Tender, Soft Extremity: Normal Inspection, Non Tender, No Pedal Edema Skin: Normal Color, Warm/Dry Neurologic/Psychiatric: Alert, Oriented x3, Normal Mood/Affect Allergies: Coded Allergies: Penicillins (Verified Allergy, Unknown, 06/19/08) Sulfa (Sulfonamide Antibiotics) (Verified Allergy, Unknown, 06/19/08) Discharge Summary Date of Admission Jan 31, 2019 at 16:41 Date of Discharge Feb 05, 2019 at 11:50 Discharge Date: Feb 04, 2019 Discharge Time: 1030 Admission Diagnosis Hypertensive emergency Consults/Procedures Consulations Cardiology Discharge Diagnosis (1) Hypertensive emergency Status: Resolved Clinical Quality Measures DVT/VTE Risk/Contraindication: Risk Factor Score Per Nursin RFS Level Per Nursing on Admit: 2=Moderate JODI MOORE MD Feb 05, 2019 13:35
[2019-02-05] MEDS ORDERED: CARVEDILOL 12.5 MG (COREG) TABLET PO SCH (21:00)
== END 2019-02-05 11:50 | disposition home health service (06) | DRG 304 ==
LOC: EDUNIT# 06:38 → ER 06:41 → ICU 09:01 → OBSVTOIN 16:41 → ICU 02-02 12:53 → 4TH 02-04 11:35
PROVIDERS: ADMIT Family Medicine; ATTEND Family Medicine
DX: I16.1 Hypertensive emergency (principal); I13.0 Hypertensive heart and chronic kidney disease with heart failure and stage 1 through stage 4 chronic kidney disease, or unspecified chronic kidney disease; I50.33 Acute on chronic diastolic (congestive) heart failure; N18.3 Chronic kidney disease, stage 3 (moderate); I48.19 Other persistent atrial fibrillation; E87.1 Hypo-osmolality and hyponatremia; N17.9 Acute kidney failure, unspecified; R06.00 Dyspnea, unspecified; Z66 Do not resuscitate; F41.9 Anxiety disorder, unspecified; G89.29 Other chronic pain; F32.9 Major depressive disorder, single episode, unspecified; M54.9 Dorsalgia, unspecified; M25.561 Pain in right knee; E83.42 Hypomagnesemia; I27.20 Pulmonary hypertension, unspecified; I07.1 Rheumatic tricuspid insufficiency; E03.9 Hypothyroidism, unspecified; G47.9 Sleep disorder, unspecified; Z95.0 Presence of cardiac pacemaker; Z90.5 Acquired absence of kidney; Z85.51 Personal history of malignant neoplasm of bladder
CPT/HCPCS: 36415; 71045; 76937; 80048; 80053; 81000; 82728; 82962; 83540; 83735; 83880; 84100; 84439; 84443; 84550; 85007; 85025; 85027; 87081; 93005; 93041; 96374; 96375; 96376

== ENCOUNTER 2019-03-15 09:39 | Outpatient (RCR) | payer MEDICARE, BC ==
[2019-01-17 10:29] LABS: BASOPHILS % (AUTO) 0 % (0-10); EOSINOPHILS # (AUTO) 0.1 10^3/uL (0.0-0.3); EOSINOPHILS % (AUTO) 1 % (0-10); HEMATOCRIT 36 % (35-52); HEMOGLOBIN 11.7 G/DL (11.5-16.0); LYMPHOCYTES # (AUTO) 0.5 X 10^3 (1.0-4.0); LYMPHOCYTES % (AUTO) 6 % (12-44); MEAN CORPUSCULAR HEMOGLOBIN 30 PG (25-34); MEAN CORPUSCULAR HGB CONC 32 G/DL (32-36); MEAN CORPUSCULAR VOLUME 95 FL (80-99); MEAN PLATELET VOLUME 9.6 FL (7.4-10.4); MONOCYTES # (AUTO) 0.6 X 10^3 (0.0-1.0); MONOCYTES % (AUTO) 7 % (0-12); NEUTROPHILS # (AUTO) 7.3 X 10^3 (1.8-7.8); NEUTROPHILS % (AUTO) 86 % (42-75); PLATELET COUNT 176 10^3/uL (130-400); RED CELL DISTRIBUTION WIDTH 15.2 % (10.0-14.5); WHITE BLOOD COUNT 8.5 10^3/uL (4.3-11.0)
[2019-01-17 10:59] LABS: ALBUMIN 3.4 GM/DL (3.2-4.5); BILIRUBIN,TOTAL 0.6 MG/DL (0.1-1.0); CALCIUM 8.7 MG/DL (8.5-10.1); CREATININE SERUM 1.8 MG/DL (0.60-1.30); POTASSIUM 4.1 MMOL/L (3.6-5.0); TOTAL PROTEIN 5.4 GM/DL (6.4-8.2)
[2019-01-19 12:23] LABS: IMMUNOFIX PATH REPORT NUMBER Complete (Complete)
[~2019-03-15 09:39] MED LIST changes: +ALLO100T PO; +AMIO200T4 PO; +CARV12.52 PO; +CRV25T PO; +DILT180C48 PO; +DULO30CA49 PO; +HYDR-3923 PO; +HYDR-3924 PO
[2019-03-15 10:08] LABS: BASOPHILS % (AUTO) 0 % (0-10); EOSINOPHILS # (AUTO) 0.1 10^3/uL (0.0-0.3); EOSINOPHILS % (AUTO) 1 % (0-10); HEMATOCRIT 38 % (35-52); LYMPHOCYTES # (AUTO) 0.8 X 10^3 (1.0-4.0); LYMPHOCYTES % (AUTO) 12 % (12-44); MEAN CORPUSCULAR HEMOGLOBIN 30 PG (25-34); MEAN CORPUSCULAR HGB CONC 31 G/DL (32-36); MEAN CORPUSCULAR VOLUME 95 FL (80-99); MEAN PLATELET VOLUME 9.5 FL (7.4-10.4); MONOCYTES # (AUTO) 0.4 X 10^3 (0.0-1.0); MONOCYTES % (AUTO) 6 % (0-12); NEUTROPHILS # (AUTO) 5.8 X 10^3 (1.8-7.8); NEUTROPHILS % (AUTO) 81 % (42-75); PLATELET COUNT 257 10^3/uL (130-400); RED CELL DISTRIBUTION WIDTH 14.7 % (10.0-14.5); WHITE BLOOD COUNT 7.2 10^3/uL (4.3-11.0)
== END 2019-04-17 | disposition home or self-care (01) ==
LOC: ONC 09:39
PROVIDERS: ATTEND Internal Medicine Hematology & Oncology
DX: C90.00 Multiple myeloma not having achieved remission (principal); N17.9 Acute kidney failure, unspecified; R76.9 Abnormal immunological finding in serum, unspecified; D64.9 Anemia, unspecified; I10 Essential (primary) hypertension; E03.9 Hypothyroidism, unspecified; Z95.0 Presence of cardiac pacemaker; Z79.01 Long term (current) use of anticoagulants; Z79.899 Other long term (current) drug therapy
CPT/HCPCS: 36415; 80053; 82784; 85025; 86334; 99213